=== PATIENT | female | born 1960 | race Two or more races ===

== ENCOUNTER 2021-12-31 08:43 | Outpatient (CLI) | payer MEDICARE, MEDICAID, SELFPAY ==
--- NOTE | 2021-12-31 09:15 | CRLHL7_ITS ---
For Patients: As a result of the Century Cures Act, medical imaging exams and procedure reports are released immediately into your electronic medical record. You may view this report before your referring provider. If you have questions, please contact your health care provider. INDICATION: CHRONIC HEPATITIS B COMPARISON: 08/06/2021 TECHNIQUE: Real time cash scale imaging and color Doppler analysis was performed of the right upper quadrant. FINDINGS: The patient`s liver is of normal size and has densely increased echogenicity. There is a normal appearance of the hepatic IVC and proximal abdominal aorta. There is no evidence of ascites. The gallbladder is surgically absent. The common bile duct is of normal size and measures 5 mm in diameter at the level of the nikolai hepatis. The pancreas appears normal. There is no evidence of a stone or hydronephrosis within the right kidney. The right kidney measures 8.4 cm in length. IMPRESSION: Similar appearance of the liver with diffusely echogenic and coarsened echotexture. No intrahepatic mass or ascites. Dictated by Leighton Gill MD @ 12/31/2021 9:31:41 AM (Electronically Signed)
[2021-12-31 10:22] LABS: Albumin* 4.9 g/dL (3.3-5.0)
[2021-12-31 10:25] LABS: Creatinine* 1.2 mg/dL (0.5-1.5); Estimated Glomerular Filt Rate 52 ml/min; Total Protein* 8.3 g/dL (6.0-8.3)
[2021-12-31 10:26] LABS: Alanine Aminotransferase* 97 U/L (4-35); Alkaline Phosphatase* 85 U/L (40-150); Aspartate Amino Transferase* 72 U/L (12-35); Bilirubin Direct* 0.1 mg/dL (0.0-0.5); Bilirubin Total* 0.4 mg/dL (0.1-1.5)
[2022-01-01 14:18] LABS: Alpha Fetoprotein Tumor Marker 3 ng/mL (0-9)
== END 2021-12-31 08:44 | disposition home or self-care (01) ==
LOC: US 08:44
PROVIDERS: PCP Family Medicine; Visit Provider Internal Medicine Gastroenterology
DX: B18.1 Chronic viral hepatitis B without delta-agent (principal)
CPT/HCPCS: 36415; 76705; 80076; 82105; 82565

== ENCOUNTER 2022-02-26 10:21 | Outpatient (CLI) | payer MEDICARE, MEDICAID, SELFPAY ==
--- OUTSIDE RECORDS SUMMARY | 2022-02-26 10:50 | XMS_ITS | Encounter Summary ---
:1960 Author Organization [facility] Address [address] [place] [address] Care Team Providers Name Role Phone Needs Pcp, Assignment Primary Care Provider Encounter Details Date Type Department Care Team Description 12/31/2019 Notes/Orders [facility], Audiology [address] [place] [address] Social History Tobacco Use Types Packs/Day Years Used Date Smoking Tobacco: Never Sex Assigned at Date Recorded Not on file documented as of this encounter Plan of Treatment Not on filedocumented as of this encounter Visit Diagnoses Not on filedocumented in this encounter Care Teams Log Driver Relationship Specialty Start Date End Date Needs Pcp, Assignment PCP - General 12/13/14 [place] [address] documented as of this encounter
--- OUTSIDE RECORDS SUMMARY | 2022-02-26 10:50 | XMS_ITS | Encounter Summary ---
:1960 Author Organization [facility] Address [address] [place] [address] Care Team Providers Name Role Phone Needs Pcp, Assignment Primary Care Provider Reason for Visit Reason Comments Device Check Encounter Details Date Type Department Care Team Description 02/07/2020 Office Visit [facility] Antonia Bryan, Bilateral sensorineural [address] [employer] JERE hearing loss ([place] [address] [place]) [address] [place], [place] [phone] [address] Social History Tobacco Use Types Packs/Day Years Used Date Smoking Tobacco: Never Sex Assigned at Date Recorded Not on file documented as of this encounter Progress Notes Antonia Bryan AU.D. - 02/07/2020 11:00 AM CST HEARING AID REVIEW Name: Kishore Raya : 1960 Primary MD: Assignment Needs PCP Date: 02/08/2020 Pick Out Hand: JERE Brown Reason for Appointment: Problems/concerns Comments: Kishore was accompanied today by her mother and theater projectionist. Kishore was recently fit withnew Resound Adalberto hearing aids and she is concerned that the batteries only last one week. She was used to getting 12-14 days. Otherwise, she is very pleased with the hearing aids. The molds are comfortable. Patient specific interventions: Explained how over time batteries have changed from silver oxide to mercury to zinc air. Also, technology improvements have resulted in a higher battery drain. Lastly, Resound aids tend to have higher battery drain than Phonak instruments as Kishore has previously worn. Explained that she may get extended battery life by removing the tab and letting the batteries sit fora couple of minutes before putting them in the aids. Explained that the amount of batteries providedby her insurance should be adequate for her needs. If not, she may find the lowest jackson for batteries online or at [employer] or [employer]. Follow-up plan/Next appointment: Recheck as needed. AYS CONTROL SPECIALIST documented in this encounter Plan of Treatment Not on filedocumented as of this encounter Visit Diagnoses Diagnosis Bilateral sensorineural hearing loss - P rimary Sensorineural hearing loss, bilateral documented in this encounter Care Teams Math Teacher Relationship Specialty Start Date End Date Needs Pcp, Assignment PCP - General 12/13/14 [place] [address] documented as of this encounter
--- OUTSIDE RECORDS SUMMARY | 2022-02-26 10:50 | XMS_ITS | Clinical Summary ---
:1960 [facility] Address [address] [address] Care Team Providers Name Role Phone Needs Pcp, Assignment Primary Care Provider Source Comments You are receiving this document as you are listed as the primary care provider,follow-up provider, or the patient has been referred to you for consultation.This is in compliance with the Medicare and Medicaid EHR Incentive Program,which states Providers who transition their patient to another setting of careor provider of care or refers their patient to another provider of care shouldprovide summarycare record for each transition of care or referral. [email or web address] Allergies Active Allergy Reactions Severity Noted Date Comments Review Food Intolerance 01/10/2003 PN: LW FI1: nka LW FI2: nka Medications Medication Sig Dispensed Refills Start Date End Date Status lisinopril (AKA Take 1 tablet by 30 0 09/03/2010 Active ZESTRIL) 30 MG mouth daily (every tablet 24 hours). LW Comment:Needs Appt/lab within 30 days LW Addl Instr:Indicated for: High Blood Pressure citalopram (AKA Take 1 tablet by 30 0 09/03/2010 Active CELEXA) 40 MG tablet mouth daily (every 24 hours). LW Comment:Needs Appt within 30 days LW Addl Instr:Indicated for: Depression simvastatin (AKA Take 1 tablet by 90 0 08/11/2009 Active ZOCOR) 20 MG tablet mouth every evening. LW Addl Instr:Indicated for: High Cholesterol calcium Take 1 tablet by 180 0 04/03/2007 Ac tive carbonate-vitamin D mouth 2 times daily. 600-400 MG-UNIT tablet METFORMIN HCL OR Take by mouth. 0 04/15/2014 Active Active Problems Problem Noted Date Hepatitis B carrier 04/11/2006 Esophageal reflux 04/11/2006 Overview: Gastroesophageal Reflux Disease Hyperlipidemia 02/04/2005 Complication of 02/04/2005 Overview: Hyperglycemia w Preg Mental retardation 02/04/2005 Overview: Mental Retardation NOS Hepatitis B virus infection 02/04/2005 Overview: Hepatitis B Major depressive disorder, single episode 02/04/2005 Overview: Depression Major NOS Essential hypertension 08/12/2003 Overview: Hypertension Hearing loss 08/21/2002 Overview: Hearing Loss NOS Encounters Date Type Specialty Care Team Description 01/14/2022 Notes/Orders Audiology Antonia Bryan AU.D. Bilat eral sensorineural hearing loss (P rimary Dx) from Last 3 Months Immunizations Name Administration Dates Next Due DTP 06/26/1995, 11/28/1994, 09/30/1994, 08/01/1994 Flu Vac Preserv Free (3+yrs) 01/29/2008 H1n1 Miv Sanofi 3+ Yr (Injected) 04/07/2009 HepA Adult (19+ yrs) 09/16/2002 HepB Adult (Engerix-B, 20+ yrs, 3 04/08/1995, 08/01/1994, dose series) Hib (ActHIB) 06/26/1995, 11/28/1994, 09/30/1994, 08/01/1994 MMR 06/26/1995 OPV, Trivalent (Orimune or tOPV) 11/28/1994, 09/30/1994, TDAP (BOOSTRIX) 07/08/2008 Td 03/16/1998 Typhoid (Typhim Vi, IM) 09/16/2002 Varicella 09/10/1996 YF (Yellow Fever) 09/16/2002 Family History Medical History Relation Name Comments Cataract Father Diabetes Father Cataract Mother Amblyopia/Strabismus Negative Family History Blindness Negative Family History Cancer Negative Family History Glaucoma Negative Family History Hypertension Negative Family History Macular Degeneration Negative Family History Retinal Detachment Negative Family History Relation Name Status Comments Father Mother Social History Tobacco Use Types Packs/Day Years Used Date Smoking Tobacco: Never Sex Assigned at Date Recorded Not on file Last Filed Vital Signs Vital Sign Reading Time Taken Comments Blood Pressure 124/82 08/11/2009 8:25 AM CDT Pulse 64 08/11/2009 8:25 AM CDT Temperature 37.2 ??C (99 ??F) 05/15/2009 2:43 PM C: 37.2 C LEAN SPECIALIST Respiratory Rate - - Oxygen Saturation - - Inhaled Oxygen Concentration - - Weight 60.8 kg (133 lb 15.9 oz) 08/11/2009 8:25 AM C: 6 0.8kg CDT Height 155.6 cm (5' 1.25) 08/11/2009 8:25 AM C: 155.6c m CDT Body Mass Index 25.11 08/11/2009 8:25 AM CDT Plan of Treatment Health Maintenance Due Date Last Done Comments Colon Cancer Screening Plan 1960 Due Medicare Annual Wellness 1960 Visit COVID-19 Vaccine (#1) 1960 HIV Screening (Preventive 1977 Services) Cervical Cancer Screening 04/04/2007 04/03/2007, 04/21/2002 , Due 12/01/2000, Additional history exists Mammogram 02/10/2011 02/10/2010, 02/03/2009, 01/29/2008, Additional history exists Cholesterol 08/11/2014 08/11/2009, 07/08/2008, 05/29/2007, Additional history exists Influenza (#1) 2021 12/28/2019, 12/24/2018, 12/26/2017, Additional history exists DTaP/Tdap/Td (9 - Tdap) 08/19/2029 08/20/2019, 04/23/2010, 07/08/2008, Additional history exists IPV (Polio) Aged Out 11/28/1994, 09/30/1994, No longe r eligible 08/01/1994 based on patient 's age to complete this topic HepB Completed 04/08/1995, 08/01/1994, 06/01/1994 Hib Aged Out 06/26/1995, 11/28/1994, No longe r eligible 09/30/1994, Additional based on patient's age history exists to complete this topic Hep C Screening (Preventive Completed 10/26/2009, 07/31/19 09, Services) 02/04/2005 HepA Completed 02/14/2011, 09/16/2002, 09/16/2002 Pneumococcal Aged Out 02/28/2014 No longer eligib le based on patient 's age to complete this topic Zoster/Shingles Completed 03/29/2020, 08/20/2019 MCV4 Aged Out No longer eligib le based on patient 's age to complete this topic Insurance Payer Benefit Plan / Subscriber ID Effective Dates Phone Addre ss Type Group MEDICARE MEDICARE [id number] 1997-Demar [place] [id number] 1999-Presmichael [address] Medicaid [facility] COMMUNICATIONS ENGINEER [place] [address] Care Teams Superintendent Electric Power Relationship Specialty Start Date End Date Needs Pcp, Assignment PCP - General 12/13/14 [place] [address]
--- OUTSIDE RECORDS SUMMARY | 2022-02-26 10:50 | XMS_ITS | Encounter Summary ---
:1960 Author Organization [facility] Address [address] [address] Care Team Providers Name Role Phone Needs Pcp, Assignment Primary Care Provider Encounter Details Date Type Department Care Team Description 01/14/2022 Notes/Orders [facility] Antonia Bryan, Bilateral sensorineural [address] [facility] AU.D. hearing loss ([place] [address] [place]) [address] [place], [place] [phone] [address] Social History Tobacco Use Types Packs/Day Years Used Date Smoking Tobacco: Never Sex Assigned at Date Recorded Not on file documented as of this encounter Plan of Treatment Not on filedocumented as of this encounter Visit Diagnoses Diagnosis Bilateral sensorineural hearing loss - P rimary Sensorineural hearing loss, bilateral documented in this encounter Care Teams Paper Baler Relationship Specialty Start Date End Date Needs Pcp, Assignment PCP - General 12/13/14 [place] [address] documented as of this encounter
--- OUTSIDE RECORDS SUMMARY | 2022-02-26 10:51 | XMS_ITS | Encounter Summary ---
:1960 Author Organization [facility] Address [address] [place] [address] Care Team Providers Name Role Phone Pauline Jimenez PA-C Primary Care Provider Encounter Details Date Type Department Care Team Description 04/07/2009 Office Visit [facility] rochelle Pauline Jimenez PA-C [address] [facility] [address] [place] [address] [place] [address] [phone] (Wo rk) Social History Tobacco Use Types Packs/Day Years Used Date Smoking Tobacco: Never Assessed Sex Assigned at Date Recorded Not on file documented as of this encounter Last Filed Vital Signs Vital Sign Reading Time Taken Comments Blood Pressure 128/82 04/07/2009 1:15 PM MANAGEMENT INTERN C: Omron Pulse 66 04/07/2009 1:15 PM MANAGEMENT INTERN Temperature - - Respiratory Rate - - Oxygen Saturation - - Inhaled Oxygen Concentration - - Weight 62.6 kg (137 lb 15.8 oz) 04/07/2009 1:12 PM MANAGEMENT INTERN C: 62.6kg Height - - Body Mass Index 25.86 07/08/2008 9:32 AM CDT documented in this encounter Progress Notes Pauline Jimenez PA-C - 04/07/2009 12:01 AM CST Progress Notes signed by Pauline West PA-C at 04/07/09 0628 Author: Pauline West PA-C Service: (none) Author Type: Physician Salesperson Floor Coverings Filed: 07/07/10 1938 Note Time: 04/07/09 0001 Status: Signed General Repair Mechanic: Pauline West PA-C (Resource) Hypertension Visit IMPRESSION: Hypertension, uncontrolled. SUBJECTIVE: Chief Complaint: Patient presents for evaluation of Hypertension. This is a follow visit for this problem. Hypertension has been present for an unknown length of time. Treatment attempted: Diet modification. Exercise. PAST MEDICAL HISTORY: Patient's active medical problems were reviewed today and updated on the Health Profile screen of [facility]. Adverse Drug Reactions: Pt's Adverse Drug Reactions were reviewed, and updated today on the Health Profile of [facility]. Medications: Reviewed and updated today on Health Profile in [facility]. Tobacco: None. Review of Systems: No Chest Pain at rest No Chest Pain with exertion No Dyspnea No Edema No Fatigue No Headache No Light-headedness OBJECTIVE: Vital Signs: Vital Signs taken today were reviewed on the flowsheet in [facility]. General: Patient in NAD. HEENT: No neck mass/thyromegaly. CV: RRR without murmurs, rubs, or gallops. No carotid bruits. 1+ pedal pulses on left. 1+ pedal pulses on right. Resp: clear to auscultation without crackles, wheezes or distress. Lower Extremities: No edema on left. No edema on right. Psychiatric: A&O, normal affect and insight, does not appear depressed or anxious. ASSESMENT: Hypertension, uncontrolled. PLAN: Goal BP <130/80. Risks, benefits, and alternatives of therapy discussed. Discussed hypertension and implications. Discussed electrolyte disturbance and arrhythmia. Diet modification. Exercise; start slow and increase exertion level gradually. Discussed weight management. She was previously on triple therapy for her blood pressure. In February her blood pressure and pulse rate were too low. Off of her medications she is running normal BP's about half of the time. I would like her to remain off of the triamterene/HCTZ and the atenolol. She will resume lisinopril at 10mg daily. She verbalized understading. I will have her follow up in about one month for recheck. Medications: Refills given. *SH~PC~HTN ~Shorthand Note completed on: 04/07/2009 2:15 PM GEMENT INTERN documented in this encounter Plan of Treatment Not on filedocumented as of this encounter Visit Diagnoses Not on filedocumented in this encounter Care Teams Home Hospice Rn Relationship Specialty Start Date End Date Pauline Jimenez PA-C PCP - General 06/17/10 12/12/[address] [place] [address] documented as of this encounter
--- OUTSIDE RECORDS SUMMARY | 2022-02-26 10:51 | XMS_ITS | Encounter Summary ---
:1960 Author Organization [facility] Address [address], [place] [address] Care Team Providers Name Role Phone Needs Pcp, Assignment Primary Care Provider Reason for Visit Reason Comments Device Check Encounter Details Date Type Department Care Team Description 05/31/2015 Office Visit [facility] Antonia Bryan, Bilateral sensorineural [address] [facility] [place] ([place] [address] [facility] Dx) [phone] [place] [address] Social History Tobacco Use Types Packs/Day Years Used Date Smoking Tobacco: Never Assessed Sex Assigned at Date Recorded Not on file documented as of this encounter Progress Notes Antonia Bryan AU.D. - 05/31/2015 5:23 PM CDT HEARING AID REVIEW Name: Kishore Raya : 1960 Primary MD: Assignment Needs PCP Date: 05/31/2015 Fire Sprinkler Fitter: TERRELL Brown Reason for Appointment: Problems/concerns Comments: Kishore has been having difficulty with hear hearing aids for several months. The tubing is easily coming out of the molds. She has lost them many times in her home because the aid has fallen off. She has difficulty getting to appointments as she has to wait until her sister is available to drive her. Patient specific interventions: The tube lock has come off of both ear mold tubes. Replaced tubing, microphone screens, earhooks. Power Transformer Repairer measurements indicate proper working condition. Kishore noted improved hearing in office. Follow-up plan/Next appointment: Annual hearing aid check. Explained that if she feels her hearing has changed we can test it, but an order is needed from her primary care provider. TABLE HANDLER documented in this encounter Plan of Treatment Not on filedocumented as of this encounter Visit Diagnoses Diagnosis Bilateral sensorineural hearing loss - P rimary Sensorineural hearing loss, bilateral documented in this encounter Care Teams Solution Analyst Relationship Specialty Start Date End Date Needs Pcp, Assignment PCP - General 12/13/14 [place] [address] documented as of this encounter
--- OUTSIDE RECORDS SUMMARY | 2022-02-26 10:51 | XMS_ITS | Encounter Summary ---
:1960 Author Organization [facility] Address [address] [address] Care Team Providers Name Role Phone Pauline Jimenez PA-C Primary Care Provider Encounter Details Date Type Department Care Team Description 05/21/2010 PN Conversion Only [facility] [address] [place] [address] [place] [address] [phone] (Wo rk) Social History Tobacco Use Types Packs/Day Years Used Date Smoking Tobacco: Never Assessed Sex Assigned at Date Recorded Not on file documented as of this encounter Plan of Treatment Not on filedocumented as of this encounter Visit Diagnoses Not on filedocumented in this encounter Care Teams Soft Iron Inspector Relationship Specialty Start Date End Date Pauline Jimenez PA-C PCP - General 06/17/10 12/12/14 [address] [place] [address] documented as of this encounter
--- OUTSIDE RECORDS SUMMARY | 2022-02-26 10:51 | XMS_ITS | Encounter Summary ---
:1960 Author Organization [facility] Address [address] [place] [address] Care Team Providers Name Role Phone Barbara Pauline Malone PA-C Primary Care Provider Encounter Details Date Type Department Care Team Description 02/20/2009 PN Conversion Only [facility] Samir [place], [address] [place] [address] [place] [facility] [phone] [place] [address] (Wo rk) Social History Tobacco Use Types Packs/Day Years Used Date Smoking Tobacco: Never Assessed Sex Assigned at Date Recorded Not on file documented as of this encounter Last Filed Vital Signs Vital Sign Reading Time Taken Comments Blood Pressure 146/80 02/20/2009 2:26 PM DOCTOR OF PODIATRY Pulse 54 02/20/2009 2:26 PM DOCTOR OF PODIATRY Temperature - - Respiratory Rate - - Oxygen Saturation - - Inhaled Oxygen Concentration - - Weight 61.8 kg (136 lb 2.9 oz) 02/20/2009 2:17 PM DOCTOR OF PODIATRY C : 61.8kg Height - - Body Mass Index 25.52 07/08/2008 9:32 AM CDT documented in this encounter Plan of Treatment Not on filedocumented as of this encounter Procedures Procedure Name Priority Date/Time Associated Diagnosis Comme nts ECG 12 [facility] Routine 02/20/2009 3:06 PM Res ults for this DOCTOR OF PODIATRY procedure are i n the results section. documented in this encounter Results ECG 12 lead clinic (02/20/2009 3:06 PM DOCTOR OF PODIATRY) Specimen (Source) Anatomical Collection Method Collection Time Re ceived Time Location / / Volume Laterality 02/20/2009 3:06 PM DOCTOR OF PODIATRY Narrative HP CONVERSION - 02/20/2009 3:06 PM DOCTOR OF PODIATRY Sinus bradycardia Nonspecific ST and T wave abnormality Abnormal ECG When compared with ECG of 11-JAN-2003 1 4:01, Vent. rate has decreased BY ??26 BPM Imr Conversion PN ECG ORDERABLES Performing Organization Address City/State/ZIP Code Phon e Number HP CONVERSION documented in this encounter Visit Diagnoses Not on filedocumented in this encounter Care Teams Travel Services Professional Relationship Specialty Start Date End Date Pauline Jimenez PA-C PCP - General 06/17/10 12/12/[address] [place] [address] documented as of this encounter
--- OUTSIDE RECORDS SUMMARY | 2022-02-26 10:51 | XMS_ITS | Encounter Summary ---
:1960 Author Organization [facility] Address [address] [place] [address] Care Team Providers Name Role Phone Pauline Jimenez PA-C Primary Care Provider Encounter Details Date Type Department Care Team Description 05/07/2010 Office Visit [facility] Brent Bryan AU.D. [place] [address] [facility] [address] [place] [address] [place] [address] [phone] Social History Tobacco Use Types Packs/Day Years Used Date Smoking Tobacco: Never Assessed Sex Assigned at Date Recorded Not on file documented as of this encounter Plan of Treatment Not on filedocumented as of this encounter Visit Diagnoses Not on filedocumented in this encounter Care Teams Community Relations Officer Relationship Specialty Start Date End Date Pauline Jimenez PA-C PCP - General 06/17/10 12/12/14 [address] [place] [address] documented as of this encounter
--- OUTSIDE RECORDS SUMMARY | 2022-02-26 10:51 | XMS_ITS | Encounter Summary ---
:1960 Author Organization [facility] Address [address] [place] [address] Care Team Providers Name Role Phone Pauline Jimenez PA-C Primary Care Provider Encounter Details Date Type Department Care Team Description 05/29/2009 Nursing Visit [facility] Eamon Moreno gil Jones MD [address] [address] [place] [address] [phone] Social History Tobacco Use Types Packs/Day Years Used Date Smoking Tobacco: Never Assessed Sex Assigned at Date Recorded Not on file documented as of this encounter Last Filed Vital Signs Vital Sign Reading Time Taken Comments Blood Pressure 118/82 05/29/2009 9:42 AM CDT C: Omron Pulse 70 05/29/2009 9:42 AM CDT Temperature - - Respiratory Rate - - Oxygen Saturation - - Inhaled Oxygen Concentration - - Weight - - Height - - Body Mass Index - - documented in this encounter Plan of Treatment Not on filedocumented as of this encounter Visit Diagnoses Not on filedocumented in this encounter Care Teams Ems Director Relationship Specialty Start Date End Date Pauline Jimenez PA-C PCP - General 06/17/10 12/12/14 [address] [place] [address] documented as of this encounter
--- OUTSIDE RECORDS SUMMARY | 2022-02-26 10:51 | XMS_ITS | Encounter Summary ---
:1960 Author Organization [facility] Address [address], [place] [address] Care Team Providers Name Role Phone Pauline Jimenez PA-C Primary Care Provider Encounter Details Date Type Department Care Team Description 04/13/2010 PN Conversion Only [facility].D[facility] [address] [place] [address] [place] [address] [phone] (Wo rk) Social History Tobacco Use Types Packs/Day Years Used Date Smoking Tobacco: Never Assessed Sex Assigned at Date Recorded Not on file documented as of this encounter Plan of Treatment Not on filedocumented as of this encounter Visit Diagnoses Not on filedocumented in this encounter Care Teams Stamping Mill Tender Relationship Specialty Start Date End Date Pauline Jimenez PA-C PCP - General 06/17/10 12/12/[address] [place] [address] documented as of this encounter
--- OUTSIDE RECORDS SUMMARY | 2022-02-26 10:51 | XMS_ITS | Encounter Summary ---
:1960 Author Organization [facility] Address [address] [place] [address] Care Team Providers Name Role Phone Needs Pcp, Assignment Primary Care Provider Reason for Visit Reason Comments HEARING LOSS Encounter Details Date Type Department Care Team Description 11/04/2019 Office Visit [facility] Antonia Bryan, Bilateral sensorineural [address] [address] [place] [address] [address] [id number] [place], [place] [phone] [address] Social History Tobacco Use Types Packs/Day Years Used Date Smoking Tobacco: Never Sex Assigned at Date Recorded Not on file documented as of this encounter Progress Notes Antonia Bryan AU.D. - 11/04/2019 4:00 PM CDT HEARING AID REVIEW Name: Kishore Raya : 1960 Primary MD: Assignment Needs PCP Date: 11/22/2019 Floor Layer Helper: JERE Brown Reason for Appointment: Problems/concerns Comments: Kishore was accompanied today by her mother and mail distribution scheme examiner. Kishore reports that her lefthearing aid is not working. Patient specific interventions: Both aids were cleaned and tested. The left aid is and the right aid appears to be working well. The aids are Phonak Arlene III and were fit in 2010. Given the age of the instruments and that one is not working, it was decided to pursue new aids at this time. Kishore does not use a mobile phone. She would like a rechargeable aid if possible. Considered both Resound Adalberto and Phonak Arlene and neither is rechargeable. Discussed color and features which are an improvement compared to her current aids. Kishore's current molds are in good condition and new molds will not be ordered at this time. Follow-up plan/Next appointment: Return in November after the new [facility] contract is available. Test hearing at the time of the fitting. documented in this encounter Plan of Treatment Not on filedocumented as of this encounter Visit Diagnoses Diagnosis Bilateral sensorineural hearing loss - P rimary Sensorineural hearing loss, bilateral documented in this encounter Care Teams Pbx Inspector Relationship Specialty Start Date End Date Needs Pcp, Assignment PCP - General 12/13/14 [place] [address] documented as of this encounter
--- OUTSIDE RECORDS SUMMARY | 2022-02-26 10:51 | XMS_ITS | Encounter Summary ---
:1960 Author Organization [facility] Address [address], [place] [address] Care Team Providers Name Role Phone Barbara Pauline Malone PA-C Primary Care Provider Encounter Details Date Type Department Care Team Description 02/10/2010 PN Conversion Only [facility] [address] [place] [address] Social History Tobacco Use Types Packs/Day Years Used Date Smoking Tobacco: Never Assessed Sex Assigned at Date Recorded Not on file documented as of this encounter Plan of Treatment Not on filedocumented as of this encounter Procedures Procedure Name Priority Date/Time Associated Diagnosis Comme nts MM MAMMOGRAM Routine 02/10/2010 12:55 PM Results for this SCREENING BILAT W STORES DESPATCH HAND procedure are in CAD the results section. documented in this encounter Results MM Mammogram Screening Bilat W CAD (02/10/2010 12:55 PM STORES DESPATCH HAND) Anatomical Region Laterality Modality Breast Bilateral Mammography Specimen (Source) Anatomical Location Collection Method / Collectio n Time Received Time / Laterality Volume Narrative 02/12/2010 10:22 AM STORES DESPATCH HAND Comparison is made to films from 01/29/2008 (bilateral). There is no significant interval change. Bilateral Breast Findings: There are scattered fibroglandular densi ties (11% - 50% fibroglandular). No significant masses, calcifications or other abnormalities are seen. IMPRESSION: BILATERAL BREASTS Negative, no evidence of malignancy. Nor mal interval follow-up is recommended in 12 months. OVERALL ASSESSMENT - CATEGORY 1 - NEGATI VE END OF IMPRESSION SJW Dictating CRISTOBAL BELL MD Procedure Note Cristobal Pinedo MD - 11/07/2015Format ting of this note might be different from the original. Comparison is made to films from 008 (bilateral). There is no significant interval change. Bilateral Breast Findings: There are scattered fibroglandular densi ties (11% - 50% fibroglandular). No significant masses, calcifications or other abnormalities are seen. IMPRESSION: BILATERAL BREASTS Negative, no evidence of malignancy. Nor mal interval follow-up is recommended in 12 months. OVERALL ASSESSMENT - CATEGORY 1 - NEGATI VE END OF IMPRESSION SJW Dictating CRISTOBAL BELL MD Pauline Jimenez PA-C RAD SONYA documented in this encounter Visit Diagnoses Not on filedocumented in this encounter Care Teams Manager Distribution Center Relationship Specialty Start Date End Date Pauline Jimenez PA-C PCP - General 06/17/10 12/12/[address] [place] [address] documented as of this encounter
--- OUTSIDE RECORDS SUMMARY | 2022-02-26 10:51 | XMS_ITS | Encounter Summary ---
:1960 Author Organization [facility] Address [address] [place] [address] Care Team Providers Name Role Phone Needs Pcp, Assignment Primary Care Provider Encounter Details Date Type Department Care Team Description 11/22/2019 Notes/Orders [facility] Antonia Bryan AUDonny [address] [address] [place] [phone] [place] [address] [phone] (Wo rk) Social History Tobacco Use Types Packs/Day Years Used Date Smoking Tobacco: Never Sex Assigned at Date Recorded Not on file documented as of this encounter Plan of Treatment Not on filedocumented as of this encounter Visit Diagnoses Not on filedocumented in this encounter Care Teams Loan Closer Relationship Specialty Start Date End Date Needs Pcp, Assignment PCP - General 12/13/14 [place] [address] documented as of this encounter
--- OUTSIDE RECORDS SUMMARY | 2022-02-26 10:51 | XMS_ITS | Encounter Summary ---
:1960 Author Organization [facility] Address [address], [place] [address] Care Team Providers Name Role Phone Pauline Jimenez PA-C Primary Care Provider Encounter Details Date Type Department Care Team Description 08/11/2009 PN Conversion Only [facility] CONVERSION Ashley Jimenez PA-C [address] [place] [address] (Wo rk) Social History Tobacco Use Types Packs/Day Years Used Date Smoking Tobacco: Never Assessed Sex Assigned at Date Recorded Not on file documented as of this encounter Plan of Treatment Not on filedocumented as of this encounter Procedures Procedure Name Priority Date/Time Associated Comments Diagnosis GLUCOSE Routine 08/11/2009 9:08 AM Results f or this CDT procedure are i n the results section. THYROID STIMULATING Routine 08/11/2009 9:08 AM Re sults for this HORMONE CDT procedure are i n the results section. LIPID PANEL AND Routine 08/11/2009 9:08 AM Result s for this DIRECT LDL(IF NEEDED) CDT proced ure are in the results section. CREATININE / GFR Routine 08/11/2009 9:08 AM Resul ts for this CDT procedure are i n the results section. COMPLETE BLOOD Routine 08/11/2009 9:08 AM Results for this COUNT-W/DIFF CDT procedure are i n the results section. ELECTROLYTE PANEL Routine 08/11/2009 9:08 AM Resu lts for this CDT procedure are i n the results section. HGB A1C Routine 08/11/2009 9:08 AM Results f or this CDT procedure are i n the results section. ALT (SGPT) Routine 08/11/2009 9:08 AM Results f or this CDT procedure are i n the results section. documented in this encounter Results Hemogram/Plts/Diff (08/11/2009 9:08 AM CDT) athologist Signature White Blood Cell 6.6 3.8 - 11.0 HP CONVERSIO N Count k/cmm Red Blood Cell 4.56 3.70 - HP CONVERSION Count 5.20 m/cmm Hemoglobin 13.9 11.8 - HP CONVERSION 15.5 g/dL Hematocrit 40.0 35.0 - HP CONVERSION 46.0 % Mean Corpuscular 87.7 80.0 - HP CONVERSION Volume 100.0 fL RDW 12.7 11.0 - HP CONVERSION 15.0 % Platelet Count 248 140 - 450 HP CONVERSION k/cmm Absolute 2.7 2.0 - 6.8 HP CONVERSION Neutrophils k/cmm Absolute 3.1 1.0 - 4.0 HP CONVERSION Lymphocytes k/cmm Absolute 0.5 0.2 - 1.0 HP CONVERSION Monocytes k/cmm Absolute 0.3 0.0 - 0.5 HP CONVERSION Eosinophils k/cmm Absolute 0.0 0.0 - 0.2 HP CONVERSION Basophils k/cmm Specimen (Source) Anatomical Collection Method Collection Time Re ceived Time Location / / Volume Laterality 08/11/2009 9:08 AM CDT Pauline Malone Barbara العراقي-C LAB_1 Performing Organization Address City/State/ZIP Code Phon e Number HP CONVERSION THYROID STIMULATING HORMONE (08/11/2009 9:08 AM CDT) athologist Signature Thyroid 2.20 0.20 - HP CONVERSION Stimulating 4.50 mIU/L Hormone Specimen (Source) Anatomical Collection Method Collection Time Re ceived Time Location / / Volume Laterality 08/11/2009 9:08 AM CDT Pauline Jimenez MALCOM-C LAB_1 Performing Organization Address City/State/ZIP Code Phon e Number HP CONVERSION (ABNORMAL) Hgb A1c (08/11/2009 9:08 AM CDT) athologist Signature HGB A1C 6.3 (H) 0.0 - 6.0 % HP CONVERSION Specimen (Source) Anatomical Collection Method Collection Time Re ceived Time Location / / Volume Laterality 08/11/2009 9:08 AM CDT Pauline ANDREC LAB_1 Performing Organization Address [facility] Code Phon e Number HP CONVERSION (ABNORMAL) Lipid Panel and Direct LDL(If Needed) (08/11/2009 9:08 AM CDT) Patholo gist Method Time Signature Cholesterol 160 0 - 200 HP CONVERSION mg/dL Triglycerides 196 (H) 0 - 149 HP CONVERSION mg/dL HDL Cholesterol 42 >39 mg/dL HP CONVERSION Cholesterol/HDL 3.8 No normal HP CONVERSION Ratio Screen range LDL Calculated 79 19 - 130 HP CONVERSION mg/dL Length Of Fast 12 No normal HP CONVERSION range Specimen (Source) Anatomical Collection Method Collection Time Re ceived Time Location / / Volume Laterality 08/11/2009 9:08 AM CDT Pauline العراقي-C LAB_1 Performing Organization Address [facility] Phon e Number HP CONVERSION Electrolyte Panel (08/11/2009 9:08 AM CDT) P athologist Signature Sodium 140 137 - 147 HP CONVERSION mEq/L Potassium 4.3 3.5 - 5.2 HP CONVERSION mEq/L Chloride 103 98 - 110 HP CONVERSION mEq/L Bicarbonate 31 23 - 33 HP CONVERSION mmol/L Specimen (Source) Anatomical Collection Method Collection Time Re ceived Time Location / / Volume Laterality 08/11/2009 9:08 AM CDT Pauline ANDREC LAB_1 Performing Organization Address [facility] Phon e Number HP CONVERSION (ABNORMAL) GLUCOSE (08/11/2009 9:08 AM CDT) P athologist Signature Lab Glucose 105 (H) 60 - 100 HP CONVERSION mg/dL Specimen (Source) Anatomical Collection Method Collection Time Re ceived Time Location / / Volume Laterality 08/11/2009 9:08 AM CDT Pauline العراقي-C LAB_1 Performing Organization Address [facility] Phon e Number HP CONVERSION Creatinine / GFR (08/11/2009 9:08 AM CDT) P athologist Signature Creatinine 0.8 0.4 - 1.3 HP CONVERSION Serum mg/dL Est GFR >60 >60 HP CONVERSION Am mL/min/1.7 Est GFR Non-Afr >60 >60 HP CONVERSION Am mL/min/1.7 Comment: Normal>60, moderate decrease 30 - 59, se liz decrease 15 - 29, renal failure <15 mL/min/1.73 m2 NOTE: ??Choose the eGFR result above buffy ropriate for the race of the patient. Specimen (Source) Anatomical Collection Method Collection Time Re ceived Time Location / / Volume Laterality 08/11/2009 9:08 AM CDT Pauline Jimenez PA-C LAB_1 Performing Organization Address City/[facility]/ZIP Code Phon e Number HP CONVERSION (ABNORMAL) ALT (SGPT) (08/11/2009 9:08 AM CDT) [facility] gist Method Time Signature Alanine 105 (H) 4 - 55 HP CONVERSION Aminotransferase U/L Specimen (Source) Anatomical Collection Method Collection Time Re ceived Time Location / / Volume Laterality 08/11/2009 9:08 AM CDT Pauline Jimenez PA-C LAB_1 Performing Organization Address City/[facility]/ZIP Code Phon e Number HP CONVERSION documented in this encounter Visit Diagnoses Not on filedocumented in this encounter Care Teams Firer Portable Boiler Relationship Specialty Start Date End Date Pauline Jimenez PA-C PCP - General 06/17/10 12/12/[address] [place] [address] documented as of this encounter
--- OUTSIDE RECORDS SUMMARY | 2022-02-26 10:51 | XMS_ITS | Encounter Summary ---
:1960 Author Organization [facility] Address [address] [address] Care Team Providers Name Role Phone Qasim Jimenez PA-C Primary Care Provider Encounter Details Date Type Department Care Team Description 05/15/2009 PN Conversion Only RELIGION CONVERSION Ashley Jimenez PA-C [address] [place] [address] (Wo rk) Social History Tobacco Use Types Packs/Day Years Used Date Smoking Tobacco: Never Assessed Sex Assigned at Date Recorded Not on file documented as of this encounter Plan of Treatment Not on filedocumented as of this encounter Procedures Procedure Name Priority Date/Time Associated Diagnosis Comme nts BETA STREP FOLLOWUP Routine 05/15/2009 4:40 PM Re sults for this SECOND OPERATOR procedure are i n the results section. STREP GROUP A Routine 05/15/2009 4:39 PM Results for this ANTIGEN TEST SECOND OPERATOR procedure are i n the results section. documented in this encounter Results Beta Strep Followup (05/15/2009 4:40 PM SECOND OPERATOR) P athologist Signature Strep Screen SEE TEXT HP CONVERSION Comment: CSSNC Culture Strep, Follow up from Rapid Test ? ORDERED BY: QASIM MAY SOURCE: Throat ? COLLECTED: ??05/15/09 16:40 ? PLATED: ? 05/15/09 16:40 Culture Strep, Follow up from Rapid Test ?? FINAL ? 05/16/09 08:36 No beta hemolytic Streptococcus isolate d Specimen (Source) Anatomical Collection Method Collection Time Re ceived Time Location / / Volume Laterality 05/15/2009 4:40 PM SECOND OPERATOR Qasim Jimenez PA-C LAB_1 Performing Organization Address City/State/ZIP Code Phon e Number HP CONVERSION Strep Group A Antigen Test (05/15/2009 4:39 PM SECOND OPERATOR) Analysis Performed At [facility] Time Signature Strep Group A SEE TEXT HP CONVERSION Antigen Test Comment: RSS Rapid Strep Screen ? ORDERED BY: QASIM MAY SOURCE: Throat ? COLLECTED: ??05/15/09 16:39 ? PLATED: ? 05/15/09 16:40 Rapid Strep Screen ? FINAL ? 05/15/09 16:58 ??Test performed by:kevin ? Negative for Streptococcus group A Specimen (Source) Anatomical Collection Method Collection Time Re ceived Time Location / / Volume Laterality 05/15/2009 4:39 PM SECOND OPERATOR Qasim Jimenez PA-C LAB_1 Performing Organization Address City/State/ZIP Code Phon e Number HP CONVERSION documented in this encounter Visit Diagnoses Not on filedocumented in this encounter Care Teams Perinatal Technician Relationship Specialty Start Date End Date Qasim Jimenez PA-C PCP - General 06/17/10 12/12/14 [address] [place] [id number] documented as of this encounter
--- OUTSIDE RECORDS SUMMARY | 2022-02-26 10:51 | XMS_ITS | Encounter Summary ---
:1960 Author Organization [facility] Address [address] [place] [address] Care Team Providers Name Role Phone Pauline Jimenez PA-C Primary Care Provider Encounter Details Date Type Department Care Team Description 05/15/2009 Office Visit [facility] rochelle Pauline Jimenez PA-C [address] [facility] [address] [place] [address] [place] [address] [phone] (Wo rk) Social History Tobacco Use Types Packs/Day Years Used Date Smoking Tobacco: Never Assessed Sex Assigned at Date Recorded Not on file documented as of this encounter Last Filed Vital Signs Vital Sign Reading Time Taken Comments Blood Pressure 116/72 05/15/2009 2:43 PM TOBACCO CHECKOUT CLERK Pulse 80 05/15/2009 2:43 PM TOBACCO CHECKOUT CLERK Temperature 37.2 ??C (99 ??F) 05/15/2009 2:43 PM TOBACCO CHECKOUT CLERK C: 37.2 C Respiratory Rate - - Oxygen Saturation - - Inhaled Oxygen Concentration - - Weight 61.3 kg (135 lb 3 oz) 05/15/2009 2:43 PM TOBACCO CHECKOUT CLERK C: 61.3kg Height - - Body Mass Index 25.34 07/08/2008 9:32 AM CDT documented in this encounter Progress Notes Pauline Jimenez PA-C - 05/15/2009 12:01 AM CST Progress Notes signed by Pauline West PA-C at 08/21/09 [id number] Author: Pauline West PA-C Service: (none) Author Type: Physician Senior Interaction Designer Filed: 07/07/102031 Note Time: 05/15/092031 Status: Signed Field Observer: Pauline West PA-C (Resource) Hypertension Visit IMPRESSION: Hypertension, uncontrolled. SUBJECTIVE: Chief Complaint: Patient presents for evaluation of Hypertension. This is a follow visit for this problem. Treatment attempted: Diet modification. Exercise. PAST MEDICAL HISTORY: Patient's active medical problems were reviewed today and updated on the Health Profile screen of the Electronic Medical Record. Adverse Drug Reactions: Pt's Adverse Drug Reactions were reviewed, and updated today on the Health Profile of the Electronic Medical Record. Medications: Reviewed and updated today on Health Profile in the Electronic Medical Record. Tobacco: None. Review of Systems: No Chest Pain at rest No Chest Pain with exertion No Headache No Light-headedness OBJECTIVE: Vital Signs: Vital Signs taken today were reviewed on the flowsheet in the Electronic Medical Record. General: Patient in NAD. HEENT: No neck mass/thyromegaly. CV: RRR without murmurs, rubs, or gallops. No carotid bruits. Resp: clear to auscultation without crackles, wheezes or distress. Lower Extremities: No edema on left. No edema on right. ASSESMENT: Hypertension, uncontrolled. PLAN: Goal BP <130/80. Exercise; start slow and increase exertion level gradually. Discussed weight management. Medications: Increased Lisinopril (Prinivil, Zestril) Follow-up visit: Follow-up visit with me in 1 month. *SH~PC~HTN ~Shorthand Note completed on: 08/21/2009 4:09 PM documented in this encounter Plan of Treatment Not on filedocumented as of this encounter Visit Diagnoses Not on filedocumented in this encounter Care Teams Wholesale Loan Processor Relationship Specialty Start Date End Date Pauline Jimenez PA-C PCP - General 06/17/10 12/12/[address] [place] [address] documented as of this encounter
--- OUTSIDE RECORDS SUMMARY | 2022-02-26 10:51 | XMS_ITS | Encounter Summary ---
:1960 Author Organization [facility] Address [address], [place] [address] Care Team Providers Name Role Phone Pauline Jimenez PA-C Primary Care Provider Encounter Details Date Type Department Care Team Description 10/26/2009 PN Conversion Only HOAHAOISM CONVERSION Ashley Jimenez PA-C [address] [place] [address] (Wo rk) Social History Tobacco Use Types Packs/Day Years Used Date Smoking Tobacco: Never Assessed Sex Assigned at Date Recorded Not on file documented as of this encounter Plan of Treatment Not on filedocumented as of this encounter Procedures Procedure Name Priority Date/Time Associated Diagnosis Comme nts HEP B SURFACE Routine 10/26/2009 4:00 PM Results for this ANTIGEN CONFIRM CDT procedure ar e in the results section. HEPATITIS A IGM Routine 10/26/2009 4:00 PM Result s for this ANTIBODY CDT procedure are i n the results section. HEPATITIS B SURFACE Routine 10/26/2009 4:00 PM Re sults for this ANTIBODY CDT procedure are i n the results section. HEP B SURFACE Routine 10/26/2009 4:00 PM Results for this ANTIGEN, NO REFLEX CDT procedure are in the results section. HEPATITIS C Routine 10/26/2009 4:00 PM Results f or this ANTIBODY, WITH CDT procedure are in REFLEX the results section. HEPATITIS B CORE,AB Routine 10/26/2009 4:00 PM Re sults for this CDT procedure are i n the results section. ALT (SGPT) Routine 10/26/2009 4:00 PM Results f or this CDT procedure are i n the results section. AST Routine 10/26/2009 4:00 PM Results f or this CDT procedure are i n the results section. BILIRUBIN, TOTAL Routine 10/26/2009 4:00 PM Resul ts for this CDT procedure are i n the results section. ALKALINE Routine 10/26/2009 4:00 PM Results f or this PHOSPHATASE, TOTAL CDT procedure are in the results section. documented in this encounter Results (ABNORMAL) HEP B SURFACE ANTIGEN CONFIRM (10/26/2009 4:00 PM CDT) [facility] Time Signature Hepatitis B Positive Non HP CONVERSION Surface Antigen (A) Confirmed Confirmation Comment: Hepatitis B surface antigen (HBsAg) did neutralize using anti-HBs. This specimen is therefore POS ITIVE for HBsAg. False positives can occur. If the result is not supported by clinical evidence, repeat testing of a new sample usually helps clarify the diagnosis. TEST INFORMATION: Hepatitis B Surface Ag Confirmation [facility] intends use of this assay for clini makayla diagnosis. This assay should not be used for blood donor screening, associated re-ent ry protocols, or for screening Human Cells, Tissues and Cellular and Tissue-Based Products ( HCT/P). Performed at [facility] [address] [place] [address] 8410 8 Specimen (Source) Anatomical Collection Method Collection Time Re ceived Time Location / / Volume Laterality 10/26/2009 4:00 PM CDT Pauline العراقي-Cyndi LAB_1 Performing Organization Address City/[facility] Code Phon e Number HP CONVERSION Hepatitis C Antibody, with Reflex (10/26/2009 4:00 PM CDT) [facility] Signature Hepatitis C Non-React No normal HP CONVERSION Antibody range Specimen (Source) Anatomical Collection Method Collection Time Re ceived Time Location / / Volume Laterality 10/26/2009 4:00 PM CDT Pauline العراقي-Cyndi LAB_1 Performing Organization Address City/State/ZIP Code Phon e Number HP CONVERSION (ABNORMAL) Hep B Surface Antigen, No Reflex (10/26/2009 4:00 PM CDT) [facility] Signature Hep B Surf Ag Sent Ref No normal HP CONVERSION (A) range Specimen (Source) Anatomical Collection Method Collection Time Re ceived Time Location / / Volume Laterality 10/26/2009 4:00 PM CDT Pauline العراقي-C LAB_1 Performing Organization Address City/[facility] Code Phon e Number HP CONVERSION Hepatitis B Surface Antibody (10/26/2009 4:00 PM CDT) [facility] Method Time Signature Hep B Surf Ab Non-React No normal HP CONVERSION range Specimen (Source) Anatomical Collection Method Collection Time Re ceived Time Location / / Volume Laterality 10/26/2009 4:00 PM CDT Pauline العراقي-C LAB_1 Performing Organization Address City/[facility] Code Phon e Number HP CONVERSION (ABNORMAL) Hepatitis B Core Antibody (10/26/2009 4:00 PM CDT) [facility] Method Time Signature Hepatitis B Reactive (A) No normal HP CONVERSION Core Total range Antibody Specimen (Source) Anatomical Collection Method Collection Time Re ceived Time Location / / Volume Laterality 10/26/2009 4:00 PM CDT Pauline العراقي-C LAB_1 Performing Organization Address [facility] Phon e Number HP CONVERSION HEPATITIS A IGM ANTIBODY (10/26/2009 4:00 PM CDT) [facility] Time Signature Hepatitis A Negative Negative HP CONVERSION IgM Antibody Comment: Performed at [facility] [address] [address] Specimen (Source) Anatomical Collection Method Collection Time Re ceived Time Location / / Volume Laterality 10/26/2009 4:00 PM CDT Pauline ANDREC LAB_1 Performing Organization Address City/[facility] Code Phon e Number HP CONVERSION Bilirubin, Total (10/26/2009 4:00 PM CDT) athologist Signature Bilirubin Total 0.3 0.2 - 1.2 HP CONVERSION mg/dL Specimen (Source) Anatomical Collection Method Collection Time Re ceived Time Location / / Volume Laterality 10/26/2009 4:00 PM CDT Pauline العراقي-C LAB_1 Performing Organization Address City/[facility]/ZIP Code Phon e Number HP CONVERSION (ABNORMAL) AST (10/26/2009 4:00 PM CDT) [facility] gist Method Time Signature Aspartate 79 (H) 0 - 45 HP CONVERSION Aminotransferase U/L Specimen (Source) Anatomical Collection Method Collection Time Re ceived Time Location / / Volume Laterality 10/26/2009 4:00 PM CDT Pauline Malone Barbara BAUM LAB_1 Performing Organization Address City/[facility] Code Phon e Number HP CONVERSION (ABNORMAL) ALT (SGPT) (10/26/2009 4:00 PM CDT) [facility] gist Method Time Signature Alanine 99 (H) 4 - 55 HP CONVERSION Aminotransferase U/L Specimen (Source) Anatomical Collection Method Collection Time Re ceived Time Location / / Volume Laterality 10/26/2009 4:00 PM CDT Pauline Malone Barbara BAUM LAB_1 Performing Organization Address [facility] Phon e Number HP CONVERSION Alkaline Phosphatase, Total (10/26/2009 4:00 PM CDT) P athologist Signature Alk Phos 61 25 - 135 U/L HP CONVERSION Specimen (Source) Anatomical Collection Method Collection Time Re ceived Time Location / / Volume Laterality 10/26/2009 4:00 PM CDT Pauline W Barbara BAUM LAB_1 Performing Organization Address [facility] Phon e Number HP CONVERSION documented in this encounter Visit Diagnoses Not on filedocumented in this encounter Care Teams Fisher Pound Net Or Trap Relationship Specialty Start Date End Date Pauline Jimenez PA-C PCP - General 06/17/10 12/12/14 [address] [place] [address] documented as of this encounter
--- OUTSIDE RECORDS SUMMARY | 2022-02-26 10:51 | XMS_ITS | Encounter Summary ---
:1960 Author [facility] Address [address] [address] Care Team Providers Name Role Phone Qasim Jimenez PA-C Primary Care Provider Reason for Visit Reason Comments Other Encounter Details Date Type Department Care Team Description 05/29/[address] [facility], Message Other [address] [place] [address] Social History Tobacco Use Types Packs/Day Years Used Date Smoking Tobacco: Never Assessed Sex Assigned at Date Recorded Not on file documented as of this encounter [facility], Message - 05/29/2009 10:01 AM CDT Phone Note filed by [employer] at 07/07/10232 Author: [employer] Service: (none) Author Type: (none) Filed: 07/07/10232 Note Time: 05/29/091000 Status: Signed Cooking Appliance Repair Technician: [employer] (Resource) blood pressure 118/82 left arm,large adult size BP cuff applied,@ 0942,with pulse rate of 70. blood pressure taken with the clinic [facility] BP unit according to [facility] protocol. patient accompanied by relative today. thx!! Created on 29May2009 10:01am by JULIANE LIMON On 29May2009 12:53pm QASIM MAY wrote: Will continue meds without additional changes. Please inform patient. Acknowledged by QASIM MAY on 12:53pm On 29May2009 1:25pm LIDIA ROSARIO wrote: Message left for the pt. Acknowledged by LIDIA ROSARIO on 1:25pm MAKER GIFT WRAPPING documented in this encounter Plan of Treatment Not on filedocumented as of this encounter Visit Diagnoses Not on filedocumented in this encounter Care Teams Md Do Resident Urgent Care Relationship Specialty Start Date End Date Qasim Jimenez PA-C PCP - General 06/17/10 12/12/[address] [place] [address] documented as of this encounter
--- OUTSIDE RECORDS SUMMARY | 2022-02-26 10:51 | XMS_ITS | Encounter Summary ---
:1960 Author Organization [facility] Address [address] [place] [address] Care Team Providers Name Role Phone Pauline Jimenez PA-C Primary Care Provider Reason for Visit Reason Comments Device Check Encounter Details Date Type Department Care Team Description 04/15/2014 Office Visit [facility] Antonia Bryan, Bilateral sensorineural hear ing loss (Primary Dx); [address] [employer] [place] [address] [facility] [phone] [place] [address] Social History Tobacco Use Types Packs/Day Years Used Date Smoking Tobacco: Never Assessed Sex Assigned at Date Recorded Not on file documented as of this encounter Progress Notes Antonia Bryan AU.D. - 04/15/2014 1:40 PM CST HEARING AID REVIEW Name: Kishore Raya : 1960 Primary MD: Pauline Jimenez PA-C Date: 04/15/2014 Floor Renovator: TERRELL Brown Reason for Appointment: Problems/concerns Comments: Kishore was accompanied today by her mother and electrical designer. She is not hearing well with her hearing aids, the earhooks are loose, and the tubing is coming out of the left mold. Patient specific interventions: Cleaned molds, changed microphone screens, tubing, and earhooks. Hospitality Coordinator measurements indicate proper working condition of both aids. Reran feedback rehab department manager. Closed ventof left mold due to low level feedback. Follow-up plan/Next appointment: Annual hearing aid check. RINTENDENT SYSTEM OPERATION documented in this encounter Plan of Treatment Not on filedocumented as of this encounter Visit Diagnoses Diagnosis Bilateral sensorineural hearing loss - P rimary Sensorineural hearing loss, bilateral Unspecified hearing loss documented in this encounter Care Teams Wool Puller Relationship Specialty Start Date End Date Pauline Jimenez PA-C PCP - General 06/17/10 12/12/[address] [place] [address] documented as of this encounter
--- OUTSIDE RECORDS SUMMARY | 2022-02-26 10:51 | XMS_ITS | Encounter Summary ---
:1960 Author Organization [facility] Address [address] [address] Care Team Providers Name Role Phone Barbara Pauline Malone PA-C Primary Care Provider Reason for Visit Reason Comments Other Encounter Details Date Type Department Care Team Description 09/03/2010 Telephone [facility], Message Other [address] [place] [address] Social History Tobacco Use Types Packs/Day Years Used Date Smoking Tobacco: Never Assessed Sex Assigned at Date Recorded Not on file documented as of this encounter Progress Notes Matilde Subramanian - 09/03/2010 3:44 PM CDT Phone Note filed by Matilde Subramanian RN at 09/04/10912 Author: Matilde Subramanian RN Service: (none) Author Type: (none) Filed: 09/04/10912 Note Time: 09/03/101543 Status: Addendum Heater Operator Helper: Matilde Subramanian RN (Registered Nurse) Related Notes: Original Note by Yovana Juarez (Physician) filed at 09/04/10912 REFILL APPOINTMENT NEEDED Please call patient and schedule appointment within 30 days. Medication has been renewed and faxed to pharmacy for 30 day supply only, per protocol. Comment:-Needs appt for physical or med check and labs creatinine and K+. Refilled Lisinopril 30 mg # 30 and Citalopram 40 mg # 30. Created on 03Sep2010 3:44pm by MATILDE SUBRAMANIAN On 04Sep2010 9:09am MONIKA BEASLEY wrote: Spoke to pt's ITE PROVIDER documented in this encounter Plan of Treatment Not on filedocumented as of this encounter Visit Diagnoses Not on filedocumented in this encounter Care Teams Ceo Relationship Specialty Start Date End Date Pauline Jimenez PA-C PCP - General 06/17/10 12/12/[address] [place] [address] documented as of this encounter
--- OUTSIDE RECORDS SUMMARY | 2022-02-26 10:51 | XMS_ITS | Encounter Summary ---
:1960 Author Organization [facility] Address [address] [place] [address] Care Team Providers Name Role Phone Pauline Jimenez PA-C Primary Care Provider Reason for Visit Reason Comments Eye Exam Diabetes Encounter Details Date Type Department Care Team Description 04/15/2014 Office Visit Angelina Trinh, Impaired fasting glucose (Primary Dx); Ophthalmology OD Examination of eyes and vision; [address] [facility] Anisometropia; [place] [address] Blvd Astigmatism, unspecified; [phone] [place], [place] Presbyopia [phone] (Wo rk) Social History Tobacco Use Types Packs/Day Years Used Date Smoking Tobacco: Never Assessed Sex Assigned at Date Recorded Not on file documented as of this encounter Progress Notes Angelina Fonseca, OD - 04/15/2014 10:01 AM CST General Medical Observation: Basically Healthy. Feels well. Complete eye exam for IFG/borderline diabetes. Assessment: Diagnosis (ICD9) and Associated Orders ICD-9-CM 1. Impaired fasting glucose 790.21 2. Examination of eyes and vision V72.0 [place] REFRACTION 3. Anisometropia 367.31 [place] REFRACTION 4. Astigmatism, unspecified 367.20 [place] REFRACTION 5. Presbyopia 367.4 [place] REFRACTION [no signs of diabetic retinopathy or CSME BE] Plan: -- Discussed findings with patient and reassured. Continue blood sugar control. -- New Glasses Rx given. -- Return 1 year, or sooner if vision changes. COMPLIANCE COORDINATOR documented in this encounter Plan of Treatment Not on filedocumented as of this encounter Visit Diagnoses Diagnosis Impaired fasting glucose - Primary Examination of eyes and vision Anisometropia Astigmatism, unspecified Presbyopia documented in this encounter Care Teams Tour Operator Relationship Specialty Start Date End Date Pauline Jimenez PA-C PCP - General 06/17/10 12/12/[address] [place] [address] documented as of this encounter
--- OUTSIDE RECORDS SUMMARY | 2022-02-26 10:51 | XMS_ITS | Encounter Summary ---
:1960 Author Organization [facility] Address [address], [place] [address] Care Team Providers Name Role Phone Needs Pcp, Assignment Primary Care Provider Reason for Visit Reason Comments Device Check Encounter Details Date Type Department Care Team Description 07/03/2016 Office Visit [facility] Antonia Bryan, Bilateral sensorineural [address] [address] [facility] JERE hearing loss ([place] [address] [facility] Dx) [phone] [place], [place] [address] Social History Tobacco Use Types Packs/Day Years Used Date Smoking Tobacco: Never Sex Assigned at Date Recorded Not on file documented as of this encounter Progress Notes Antonia Bryan AU.D. - 07/03/2016 4:51 PM CDT HEARING AID REVIEW Name: Kishore Raya : 1960 Primary MD: Assignment Needs PCP Date: 07/03/2016 Packing House Supervisor: JERE Brown Reason for Appointment: Problems/concerns Comments: Feedback when lying down. Kishore has been sleeping with her aids on because she didn't knowit was ok not to. Aids are too loud at work and she them turns down. Kishoer's employer refuses to provide an park interpreter for her for meetings and reviews, though she has made repeated requests. Kishore would like the aids to be louder. Her initial remark was that the aids are too noisy, but with further discussion, she was not referring to the aids having circuit noise or distortion, but that they supervisor opening and picking the noise level at work. Patient specific interventions: Changed the mics screens that were dirty and changed tubing and earhooks. Checked the volume controls and both are functioning appropriately. There are four steps available for increased gain above the default setting. Researched other power aids such as the newer Arlene and Resound Adalberto. Kishore's current aids have more gain than those models. Although the current aids are 6 years old and insurance would cover new ones, there is not significant justification for ordering new ones. With new aneudy screens and earhooks, Kishore will likely appreciate increased gain in the aids. Follow-up plan/Next appointment: Recheck as needed. documented in this encounter Plan of Treatment Not on filedocumented as of this encounter Visit Diagnoses Diagnosis Bilateral sensorineural hearing loss - P rimary Sensorineural hearing loss, bilateral documented in this encounter Care Teams Elementary School Teacher'S Aide Relationship Specialty Start Date End Date Needs Pcp, Assignment PCP - General 12/13/14 [place] [address] documented as of this encounter
--- OUTSIDE RECORDS SUMMARY | 2022-02-26 10:51 | XMS_ITS | Encounter Summary ---
:1960 [facility] Address [address] [place] [address] Care Team Providers Name Role Phone Pauline Jimenez PA-C Primary Care Provider Reason for Visit Reason Comments Pharmacy Encounter Details Date Type Department Care Team Description 12/06/2010 Telephone [facility] Pauline Jimenez PA-C Pharmacy [address] [facility] [address] [place] [address] [place] [address] [phone] (Wo rk) Social History Tobacco Use Types Packs/Day Years Used Date Smoking Tobacco: Never Assessed Sex Assigned at Date Recorded Not on file documented as of this encounter Nursing Notes Sandra Thakur - 12/06/2010 11:51 AM CDT Non -Symptom Message from Front [place] Primary Care Provider: Pauline West PA-C, PA-C Message: Tori from [facility] calling the mistakenly faxed ov an RX for Lisinopril, please disregard documented in this encounter Plan of Treatment Not on filedocumented as of this encounter Visit Diagnoses Not on filedocumented in this encounter Care Teams Lpn Relationship Specialty Start Date End Date Pauline Jimenez PA-C PCP - General 06/17/10 12/12/[address] [place] [address] documented as of this encounter
--- OUTSIDE RECORDS SUMMARY | 2022-02-26 10:51 | XMS_ITS | Encounter Summary ---
:1960 Author Organization [facility] Address [address], [place] [address] Care Team Providers Name Role Phone Pauline Jimenez PA-C Primary Care Provider Encounter Details Date Type Department Care Team Description 09/08/2009 PN Conversion Only CHRISTIAN CONVERSION Ashley Jimenez PA-C [address] [place], [place] [address] (Wo rk) Social History Tobacco Use Types Packs/Day Years Used Date Smoking Tobacco: Never Assessed Sex Assigned at Date Recorded Not on file documented as of this encounter Plan of Treatment Not on filedocumented as of this encounter Procedures Procedure Name Priority Date/Time Associated Diagnosis Comme nts GT (GAMMA GT) Routine 09/08/2009 9:32 AM Results for this CDT procedure are i n the results section. ALT (SGPT) Routine 09/08/2009 9:32 AM Results f or this CDT procedure are i n the results section. AST Routine 09/08/2009 9:32 AM Results f or this CDT procedure are i n the results section. BILIRUBIN, TOTAL Routine 09/08/2009 9:32 AM Resul ts for this CDT procedure are i n the results section. ALKALINE Routine 09/08/2009 9:32 AM Results f or this PHOSPHATASE, TOTAL CDT procedure are in the results section. documented in this encounter Results (ABNORMAL) GT (Gamma GT) (09/08/2009 9:32 AM CDT) Analysis Performed At Patho logist Time Signature Gamma-Glutamyl 67 (H) 1 - 48 U/L HP CONVERSION Transferase Specimen (Source) Anatomical Collection Method Collection Time Re ceived Time Location / / Volume Laterality 09/08/2009 9:32 AM CDT Pauline العراقي-C LAB_1 Performing Organization Address [facility] Phon e Number HP CONVERSION Bilirubin, Total (09/08/2009 9:32 AM CDT) P athologist Signature Bilirubin Total 0.5 0.2 - 1.2 HP CONVERSION mg/dL Specimen (Source) Anatomical Collection Method Collection Time Re ceived Time Location / / Volume Laterality 09/08/2009 9:32 AM CDT Pauline العراقي-C LAB_1 Performing Organization Address [facility] Phon e Number HP CONVERSION (ABNORMAL) AST (09/08/2009 9:32 AM CDT) [facility] gist Method Time Signature Aspartate 59 (H) 0 - 45 HP CONVERSION Aminotransferase U/L Specimen (Source) Anatomical Collection Method Collection Time Re ceived Time Location / / Volume Laterality 09/08/2009 9:32 AM CDT Pauline العراقي-C LAB_1 Performing Organization Address [facility] Phon e Number HP CONVERSION (ABNORMAL) ALT (SGPT) (09/08/2009 9:32 AM CDT) [facility] gist Method Time Signature Alanine 84 (H) 4 - 55 HP CONVERSION Aminotransferase U/L Specimen (Source) Anatomical Collection Method Collection Time Re ceived Time Location / / Volume Laterality 09/08/2009 9:32 AM CDT Pauline العراقي-C LAB_1 Performing Organization Address [facility] Phon e Number HP CONVERSION Alkaline Phosphatase, Total (09/08/2009 9:32 AM CDT) athologist Signature Alk Phos 65 25 - 135 U/L HP CONVERSION Specimen (Source) Anatomical Collection Method Collection Time Re ceived Time Location / / Volume Laterality 09/08/2009 9:32 AM CDT Pauline العراقي-C LAB_1 Performing Organization Address [facility] Phon e Number HP CONVERSION documented in this encounter Visit Diagnoses Not on filedocumented in this encounter Care Teams Indoor Plant Technician Relationship Specialty Start Date End Date Pauline Jimenez PA-C PCP - General 06/17/10 12/12/[address] [place] [address] documented as of this encounter
--- OUTSIDE RECORDS SUMMARY | 2022-02-26 10:51 | XMS_ITS | Encounter Summary ---
:1960 Author Organization [facility] Address [address] [place] [address] Care Team Providers Name Role Phone Pauline Jimenez PA-C Primary Care Provider Encounter Details Date Type Department Care Team Description 08/11/2009 Office Visit [facility] sandraramirez Pauline Jimenez PA-C [address] [facility] [address] [place] [address] [place] [address] [phone] (Wo rk) Social History Tobacco Use Types Packs/Day Years Used Date Smoking Tobacco: Never Assessed Sex Assigned at Date Recorded Not on file documented as of this encounter Last Filed Vital Signs Vital Sign Reading Time Taken Comments Blood Pressure 124/82 08/11/2009 8:25 AM CDT Pulse 64 08/11/2009 8:25 AM CDT Temperature - - Respiratory Rate - - Oxygen Saturation - - Inhaled Oxygen Concentration - - Weight 60.8 kg (133 lb 15.9 oz) 08/11/2009 8:25 AM C: 6 0.8kg CDT Height 155.6 cm (5' 1.25) 08/11/2009 8:25 AM C: 155.6c m CDT Body Mass Index 25.11 08/11/2009 8:25 AM CDT documented in this encounter Progress Notes Pauline Jimenez PA-C - 08/11/2009 12:01 AM CDT Progress Notes signed by Pauline West PA-C at 08/11/09 0926 Author: Pauline West PA-C Service: (none) Author Type: Physician Ceo Na Filed: 07/07/10 2244 Note Time: 08/11/092014 Status: Signed Manager Book: Pauline West PA-C (Resource) Clinic Visit IMPRESSION: Hypercholesterolemia, controlled. Hypertension, controlled. SUBJECTIVE: This is a follow visit for this problem. BGS monitoring done by patient: Evaluations: Needs lipids. Past Medical History: Pt's problem list was reviewed and updated today on the Health Profile of the Electronic Medical Record. Exercise: Inadequate. Obesity: Weight increasing. Patient's active medical problems were reviewed today and updated on the Health Profile screen of the Electronic Medical Record. Adverse Drug Reactions: Pt's Adverse Drug Reactions were reviewed, and updated today on the Health Profile of the Electronic Medical Record. Medications: Reviewed and updated today on Health Profile in the Electronic Medical Record. Tobacco: None. No Abdominal Pain. No Arthralgias. No Chest Pain at rest. No Chest Pain with exertion. No Dyspnea. No Edema. No Fatigue. No Headache. No Jaundice. No Liver dysfunction. No Light-headedness No Myalgias. OBJECTIVE: Vital Signs: Vital Signs taken today were reviewed on the flowsheet in LastWord. General: Patient in NAD. HEENT: No neck mass/thyromegaly. CV: RRR without murmurs, rubs, or gallops. No carotid bruits. 1+ pedal pulses on left. 1+ pedal pulses on right. Resp: Clear to auscultation without crackles, wheezes or distress. Abdomen: Soft, non-tender, without hepatospleenomegaly, masses, or hernias. Lower Extremities: No edema. Psychiatric: A&O, normal affect and insight, does not appear depressed or anxious. ASSESSMENT: Hypercholesterolemia, controlled. Hypertension, controlled. PLAN: Counseled on dietary modification Counseled on regular exercise. Counseled on starting exercise regimen slow and increase exertion level gradually. Counseled on hypertension and risks. Counseled on monitoring blood pressure. Counseled on goal BP <130/80. Counseled on myalgias/rhabdomyalysis. Counseled on obesity risks. Counseled on reason for treatment/goals Discussed risks, benefits, and alternatives of therapy Pt. will continue current medications at the same dosages; see Health Profile in the Electronic Medical Record. Labs today: A1C, Cholesterol labs, Glucose, fasting, Hypertension labs, TSH, Results Notifications: We will mail lab results to patient. If results not received in the next month, patient instructed to call. Follow-up visit: Follow-up visit with me in 1 year. She states her depression is well controlled with Celexa. Her PHQ-9 is a 0. Continue *SH~PC~D/LIP/HTN ~Shorthand Note completed on: 08/11/2009 9:25 AM documented in this encounter Plan of Treatment Not on filedocumented as of this encounter Visit Diagnoses Not on filedocumented in this encounter Care Teams Top Stop Attacher Relationship Specialty Start Date End Date Pauline Jimenez PA-C PCP - General 06/17/10 12/12/[address] [place] [address] documented as of this encounter
--- OUTSIDE RECORDS SUMMARY | 2022-02-26 10:51 | XMS_ITS | Encounter Summary ---
:1960 Author Organization [email or web address] Address [address] [address] Care Team Providers Name Role Phone Needs Pcp, Assignment Primary Care Provider Reason for Visit Reason Comments HEARING LOSS Encounter Details Date Type Department Care Team Description 09/20/2016 Office Visit [facility] Antonia Bryan, Bilateral sensorineural [address] [facility] JERE hearing loss (Primary [id number] [facility] Dx) [phone] Social History Tobacco Use Types Packs/Day Years Used Date Smoking Tobacco: Never Sex Assigned at Date Recorded Not on file documented as of this encounter Progress Notes Antonia Bryan AU.D. - 09/20/2016 8:30 AM CDT HEARING AID REVIEW Name: Kishore Raya : 1960 Primary MD: Assignment Needs PCP Date: 09/20/2016 Still Tender: JERE Brown Ordering MD: Aleksandr Walter MD Reason for Appointment: Problems/concerns Auiological Evaluation: Subjective: Kishore is accompanied today by her mother and supervisor maple products. Both Kishore and her mother feel there has been a change in hearing. Specifically, Mother feels Kishore does not respond as well when she is called from downstairs. Objective: Otoscopy revealed clear canals and visible tympanic membranes, bilaterally. Pure tone audiometric testing revealed a profound loss, bilaterally. The loss has been previously documented as sensorineural in nature. . Assessment: Compared to findings from 2011, hearing sensitivity is actually slightly better in the low frequencies. Low frequency hearing may have been somewhat decreased in 2011 due to negative middle ear pressure. Patient specific interventions: Replaced microphone screens. Store Stocker measurements indicate proper working condition. Follow-up plan/Next appointment: Discussed findings with Kishore and her mother. Although insurance would cover new aids for Kishore, there really is not a strong justification for new aids at this time. Her current aids are 6 years old. Recommend an annual hearing aid check. Provided extra microphone screens. Kishore is able to change them herself. documented in this encounter Plan of Treatment Not on filedocumented as of this encounter Visit Diagnoses Diagnosis Bilateral sensorineural hearing loss - P rimary Sensorineural hearing loss, bilateral documented in this encounter Care Teams Ground Support Agent Relationship Specialty Start Date End Date Needs Pcp, Assignment PCP - General 12/13/14 [place] [address] documented as of this encounter
--- OUTSIDE RECORDS SUMMARY | 2022-02-26 10:51 | XMS_ITS | Encounter Summary ---
:1960 Author [facility] Address [address] [place] [address] Care Team Providers Name Role Phone Pauline Jimenez PA-C Primary Care Provider Reason for Visit Reason Comments Other Encounter Details Date Type Department Care Team Description 07/12/2009 Telephone [facility], Message Other [address] [place], [place] [phone] Social History Tobacco Use Types Packs/Day Years Used Date Smoking Tobacco: Never Assessed Sex Assigned at Date Recorded Not on file documented as of this encounter Progress Notes Center, Message - 07/12/2009 2:24 PM CDT Phone Note filed by Echodio at 07/07/10626 Author: Echodio Service: (none) Author Type: (none) Filed: 07/07/10626 Note Time: 07/12/091423 Status: Signed Registration Manager: Echodio (Resource) PRESCRIPTION REFILL Request #1: Please provide enough refills to last until patient's next visit. Comment:-new pharmacy for patient Pharmacy Seq #:-[phone] Pharmacy Name-Phone/Fax:-[facility] Street or City:[facility] Clinician Name:Maxx West Drug Name/Strength:- Simvastatin tab 20mg Sig: Dose/Route/Freq:-take one tab daily in the evening Quantity & Last Fill:-30 PRESCRIPTION REFILL Request #2: Comment:- Drug Name/Strength:-Lisinopril 20mg Sig: Dose/Route/Freq:-take one tab daily Quantity & Last Fill:-30 PRESCRIPTION REFILL Request #3: Comment:- Drug Name/Strength:-Celexa 40mg Sig: Dose/Route/Freq:-take one tab daily Quantity & Last Fill:-30 *ECODE~PNRF3 Created on 12Jul2009 2:24pm by KATYA TORRES On 13Jul2009 10:49am MOHSEN SULTANA wrote: REFILL APPOINTMENT NEEDED Please call patient and schedule appointment within 30 days. Medication has been renewed and faxed to pharmacy for 30 day supply only, per protocol. Comment:-med ck / Blood pressure ck due. On 13Jul2009 1:22pm ISABELA ROSALES wrote: Left message at home that prescriptions were called in, and pt needs appointment in next 30 days. ERY BUYER documented in this encounter Plan of Treatment Not on filedocumented as of this encounter Visit Diagnoses Not on filedocumented in this encounter Care Teams Glassine Machine Tender Relationship Specialty Start Date End Date Pauline Jimenez PA-C PCP - General 06/17/10 12/12/14 [address] [place] [address] documented as of this encounter
--- OUTSIDE RECORDS SUMMARY | 2022-02-26 10:51 | XMS_ITS | Encounter Summary ---
:1960 Author Organization [facility] Address [address] [address] Care Team Providers Name Role Phone Qasim Jimenez PA-C Primary Care Provider Reason for Visit Reason Comments Other Encounter Details Date Type Department Care Team Description 12/19/2009 Telephone [facility] Komal Dubon LPN Other [address] [place] [address] Social History Tobacco Use Types Packs/Day Years Used Date Smoking Tobacco: Never Assessed Sex Assigned at Date Recorded Not on file documented as of this encounter Progress Notes Qasim Jimenez PA-C - 12/19/2009 11:11 AM CDT Phone Note filed by Qasim May PA-C at 07/07/101945 Author: Qasim May PA-C Service: (none) Author Type: Physician Rn Progressive Care Unit Filed: 07/07/101945 Note Time: 12/19/09 1111 Status: Signed Superintendent Service: Qasim May PA-C (Physician Rn Progressive Care Unit) Spoke to her mother (patient is deaf). I would like her to stop the Zocor for 2 weeks and then repeat AST, ALT, Alk phos, Tbili, and GGT (abnormal LFT's). If still abnormal, I would like her to consult GI regarding abnormal LFT's. Also, please schedule her for RUQ US (abnormal LFT's). Created on 19Dec2009 11:11am by QASIM MAY On 19Dec2009 11:42am KOMAL DAVIDSON wrote: Correct lab orders sent to the lab. Acknowledged by KOMAL DAVIDSON on 11:42am On 19Dec2009 11:51am KOMAL DAVIDSON wrote: Appt. made for 12-21-09 at [place] [facility]-in [facility].7:55. Acknowledged by KOMAL DAVIDSON on 11:51am On 19Dec2009 1:52pm KOMAL DAVIDSON wrote: Called pt.'s mother to let her know her appt.time for the US. Acknowledged by KOMAL DAVIDSON on 1:52pm WOOD FALLER documented in this encounter Plan of Treatment Not on filedocumented as of this encounter Visit Diagnoses Not on filedocumented in this encounter Care Teams Sensitometrist Relationship Specialty Start Date End Date Qasim Jimenez PA-C PCP - General 06/17/10 12/12/14 [address] [place] [address] documented as of this encounter
--- OUTSIDE RECORDS SUMMARY | 2022-02-26 10:51 | XMS_ITS | Encounter Summary ---
:1960 Author Organization [facility] Address [address], [place] [address] Care Team Providers Name Role Phone Pauline Jimenez PA-C Primary Care Provider Encounter Details Date Type Department Care Team Description 01/11/2010 PN Conversion Only [facility] CONVERSION Ashley Jimenez PA-C [address] [place], [place] [address] (Wo rk) Social History Tobacco Use Types Packs/Day Years Used Date Smoking Tobacco: Never Assessed Sex Assigned at Date Recorded Not on file documented as of this encounter Plan of Treatment Not on filedocumented as of this encounter Procedures Procedure Name Priority Date/Time Associated Diagnosis Comme nts HEPATITIS BE Routine 01/11/2010 4:56 PM Results f or this ANTIGEN CDT procedure are i n the results section. HEPATITIS BE Routine 01/11/2010 4:56 PM Results f or this ANTIBODY CDT procedure are i n the results section. GT (GAMMA GT) Routine 01/11/2010 4:56 PM Results for this CDT procedure are i n the results section. ALPHA-FETOPROTEIN Routine 01/11/2010 4:56 PM Resu lts for this (AFP), TUMOR MARKER CDT procedur e are in the results section. ALT (SGPT) Routine 01/11/2010 4:56 PM Results f or this CDT procedure are i n the results section. AST Routine 01/11/2010 4:56 PM Results f or this CDT procedure are i n the results section. BILIRUBIN, TOTAL Routine 01/11/2010 4:56 PM Resul ts for this CDT procedure are i n the results section. ALKALINE Routine 01/11/2010 4:56 PM Results f or this PHOSPHATASE, TOTAL CDT procedure are in the results section. documented in this encounter Results Tumor Marker (AFP) (01/11/2010 4:56 PM CDT) athologist Signature Tumor Marker 3.0 0.0 - 9.0 HP CONVERSION Afp ng/mL Specimen (Source) Anatomical Collection Method Collection Time Re ceived Time Location / / Volume Laterality 01/11/2010 4:56 PM CDT Pauline العراقي-C LAB_1 Performing Organization Address City/[facility]/ZIP Code Phon e Number HP CONVERSION (ABNORMAL) HEPATITIS BE ANTIBODY (01/11/2010 4:56 PM CDT) [facility] gist Method Time Signature Hepatitis Be Positive (A) Negative HP CONVERSION Antibody Comment: The anti-HBe is repeatedly reactive, whi ch is consistent with recent or remote Hepatitis B infect ion. Anti-HBe can be present in a small proportion of surgery attendant beth HBV infections, but its presence usually indicates resol ution. If HBeAg is also positive, this may represent the tr ansition between the appearance of anti-HBe and decline of HB eAg and retesting in a month may be useful. Performed at [facility] [address] [place], [place] [address] Specimen (Source) Anatomical Collection Method Collection Time Re ceived Time Location / / Volume Laterality 01/11/2010 4:56 PM CDT Pauline العراقي-C LAB_1 Performing Organization Address City/[facility] Phon e Number HP CONVERSION HEPATITIS BE ANTIGEN (01/11/2010 4:56 PM CDT) Analysis Performed At [facility] logist Time Signature Hepatitis Be Negative Negative HP CONVERSION Antigen Comment: Negative Performed at [facility] [place], [place] [address] Specimen (Source) Anatomical Collection Method Collection Time Re ceived Time Location / / Volume Laterality 01/11/2010 4:56 PM CDT Pauline Jimenez PA-C LAB_1 Performing Organization Address City/[facility]/ZIP Code Phon e Number HP CONVERSION (ABNORMAL) GT (Gamma GT) (01/11/2010 4:56 PM CDT) Analysis Performed At Patho logist Time Signature Gamma-Glutamyl 70 (H) 1 - 48 U/L HP CONVERSION Transferase Specimen (Source) Anatomical Collection Method Collection Time Re ceived Time Location / / Volume Laterality 01/11/2010 4:56 PM CDT Pauline ANDREC LAB_1 Performing Organization Address City/[facility]/ZIP Code Phon e Number HP CONVERSION Bilirubin, Total (01/11/2010 4:56 PM CDT) P athologist Signature Bilirubin Total 0.4 0.2 - 1.2 HP CONVERSION mg/dL Specimen (Source) Anatomical Collection Method Collection Time Re ceived Time Location / / Volume Laterality 01/11/2010 4:56 PM CDT Pauline ANDREC LAB_1 Performing Organization Address [facility] Phon e Number HP CONVERSION (ABNORMAL) AST (01/11/2010 4:56 PM CDT) Patholo gist Method Time Signature Aspartate 75 (H) 0 - 45 HP CONVERSION Aminotransferase U/L Specimen (Source) Anatomical Collection Method Collection Time Re ceived Time Location / / Volume Laterality 01/11/2010 4:56 PM CDT Pauline العراقي-C LAB_1 Performing Organization Address [facility] Phon e Number HP CONVERSION (ABNORMAL) ALT (SGPT) (01/11/2010 4:56 PM CDT) Patholo gist Method Time Signature Alanine 117 (H) 4 - 55 HP CONVERSION Aminotransferase U/L Specimen (Source) Anatomical Collection Method Collection Time Re ceived Time Location / / Volume Laterality 01/11/2010 4:56 PM CDT Pauline العراقي-C LAB_1 Performing Organization Address City/[facility]/ZIP Code Phon e Number HP CONVERSION Alkaline Phosphatase, Total (01/11/2010 4:56 PM CDT) P athologist Signature Alk Phos 69 25 - 135 U/L HP CONVERSION Specimen (Source) Anatomical Collection Method Collection Time Re ceived Time Location / / Volume Laterality 01/11/2010 4:56 PM CDT Pauline العراقي-C LAB_1 Performing Organization Address City/State/ZIP Code Phon e Number HP CONVERSION documented in this encounter Visit Diagnoses Not on filedocumented in this encounter Care Teams Business Development Relationship Specialty Start Date End Date Pauline Jimenez PA-C PCP - General 06/17/10 12/12/[address] [place] [address] documented as of this encounter
--- OUTSIDE RECORDS SUMMARY | 2022-02-26 10:51 | XMS_ITS | Encounter Summary ---
:1960 Author Organization [facility] Address [address] [place] [address] Care Team Providers Name Role Phone Pauline Jimenez Faisal BAUM Primary Care Provider Encounter Details Date Type Department Care Team Description 04/27/2010 Office Visit [facility] Brent Bryan AU.D. [place] [address] [facility] [address] [place] [address] [place] [address] [phone] Social History Tobacco Use Types Packs/Day Years Used Date Smoking Tobacco: Never Assessed Sex Assigned at Date Recorded Not on file documented as of this encounter Progress Notes Antonia rByan AU.D. - 04/27/2010 12:01 AM CST Progress Notes signed by TERRELL Brown at 08/01/10 1300 Author: TERRELL Brown Service: (none) Author Type: Box Puller Filed: 08/01/10 1303 Note Time: 04/27/10 0001 Status: Signed Customer Acquisition Manager: TERRELL Brown (Box Puller) NAME: WOO RAYA MR#: [id number] ACCT: [id number] VISIT: [id number] DICTATING CLINICIAN: Terrell Brown CONFIRM #: [id number] LOC: 581 CLINIC PROGRESS NOTE DATE OF VISIT: 04/27/2010 : 1960 SUBJECTIVE: Woo was seen today for a hearing evaluation. She was accompanied by her mother and a asic design engineer. Woo has noted increased difficulty hearing and is also interested in new hearing aids if possible. OBJECTIVE: Pure tone thresholds reveal a profound hearing loss bilaterally. Tympanometry revealed normal middle ear compliance with slight negative middle ear pressure bilaterally. Speech audiometry was not assessed. ASSESSMENT: Compared to results from May of 2007, there is a decrease in sensitivity for both ears. PLAN: Following testing these results were discussed with Woo and her mother. New amplification was fit today. Woo had been most recently seen on April 13, at which time a hearing aid evaluation was conducted and amplification ordered. Woo does sleeps with both hearing aids in as a safety factor, but has noted some discomfort recently with her left ear mold. She also is getting feedback with her left mold. A hearing aid fitting was conducted today and follow up is scheduled for 2 weeks. An annual evaluation to monitor sensitivity is also suggested. NR:DEREK C: CONFIRM #: [id number] documented in this encounter Plan of Treatment Not on filedocumented as of this encounter Visit Diagnoses Not on filedocumented in this encounter Care Teams Turkey Roll Maker Relationship Specialty Start Date End Date Pauline Jimenez PA-C PCP - General 06/17/10 12/12/[address] [place] [address] documented as of this encounter
--- OUTSIDE RECORDS SUMMARY | 2022-02-26 10:51 | XMS_ITS | Encounter Summary ---
:1960 Author Organization [facility] Address [address], [place] [address] Care Team Providers Name Role Phone Pauline Jimenez PA-C Primary Care Provider Encounter Details Date Type Department Care Team Description 12/16/2009 PN Conversion Only EPISCOPALIAN CONVERSION Ashley Jimenez PA-C [address] [place], [place] [address] (Wo rk) Social History Tobacco Use Types Packs/Day Years Used Date Smoking Tobacco: Never Assessed Sex Assigned at Date Recorded Not on file documented as of this encounter Plan of Treatment Not on filedocumented as of this encounter Procedures Procedure Name Priority Date/Time Associated Diagnosis Comme nts HEP B SURFACE Routine 12/16/2009 11:36 AM Results for this ANTIGEN CONFIRM CDT procedure ar e in the results section. HEPATITIS B SURFACE Routine 12/16/2009 11:36 AM R esults for this ANTIBODY CDT procedure are i n the results section. HEP B SURFACE Routine 12/16/2009 11:36 AM Results for this ANTIGEN, NO REFLEX CDT procedure are in the results section. ALT (SGPT) Routine 12/16/2009 11:36 AM Results for this CDT procedure are i n the results section. AST Routine 12/16/2009 11:36 AM Results for this CDT procedure are i n the results section. documented in this encounter Results (ABNORMAL) HEP B SURFACE ANTIGEN CONFIRM (12/16/2009 11:36 AM CDT) [facility] Method Time Signature Hepatitis B NA (A) Non Confirmed HP CONVERSION Surface Antigen Confirmation Comment: Hepatitis B surface antigen (HBsAg) did neutralize using anti-HBs. This specimen is therefore POS ITIVE for HBsAg. False positives can occur. If the result is not supported by clinical evidence, repeat testing of a new sample usually helps clarify the diagnosis. TEST INFORMATION: Hepatitis B Surface Ag Confirmation This assay should not be used for blood donor screening, associated re-entry protocols, or for sc reening Human Cells, ??Tissues and Cellular and Tissue -Based Products (HCT/P). Corrected result; previously reported as Positive on 12/18/09 at 15:33 by I/AUT Performed at [address] [address] Specimen (Source) Anatomical Collection Method Collection Time Re ceived Time Location / / Volume Laterality 12/16/2009 11:36 AM CDT Pauline Jimenez MALCOM-C LAB_1 Performing Organization Address [facility] Phon e Number HP CONVERSION Hep B Surface Antigen, No Reflex (12/16/2009 11:36 AM CDT) athologist Signature Hep B Surf Ag N/A No normal HP CONVERSION range Comment: Corrected result; previously reported as Sent Ref on 12/16/09 at 16:37 by OLSMA Specimen (Source) Anatomical Collection Method Collection Time Re ceived Time Location / / Volume Laterality 12/16/2009 11:36 AM CDT Pauline العراقي-C LAB_1 Performing Organization Address City/[facility] Code Phon e Number HP CONVERSION Hepatitis B Surface Antibody (12/16/2009 11:36 AM CDT) athologist Signature Hep B Surf Ab N/A No normal HP CONVERSION range Comment: Corrected result; previously reported as Non-React on 12/16/09 at 16:37 by OLSMA Specimen (Source) Anatomical Collection Method Collection Time Re ceived Time Location / / Volume Laterality 12/16/2009 11:36 AM CDT Pauline العراقي-C LAB_1 Performing Organization Address [facility] Code Phon e Number HP CONVERSION (ABNORMAL) AST (12/16/2009 11:36 AM CDT[facility] Time Signature Aspartate 110 (H) 0 - 45 HP CONVERSION Aminotransferase U/L Specimen (Source) Anatomical Collection Method Collection Time Re ceived Time Location / / Volume Laterality 12/16/2009 11:36 AM CDT Pauline Jimenez PA-C LAB_1 Performing Organization Address City/[facility] Code Phon e Number HP CONVERSION (ABNORMAL) ALT (SGPT) (12/16/2009 11:36 AM CDT) [facility] gist Method Time Signature Alanine 120 (H) 4 - 55 HP CONVERSION Aminotransferase U/L Specimen (Source) Anatomical Collection Method Collection Time Re ceived Time Location / / Volume Laterality 12/16/2009 11:36 AM CDT Pauline Jimenez PA-C LAB_1 Performing Organization Address [facility] Phon e Number HP CONVERSION documented in this encounter Visit Diagnoses Not on filedocumented in this encounter Care Teams Speech Lang Path Therapist Relationship Specialty Start Date End Date Pauline Jimenez PA-C PCP - General 06/17/10 12/12/14 [address] [place] [address] documented as of this encounter
--- OUTSIDE RECORDS SUMMARY | 2022-02-26 10:51 | XMS_ITS | Encounter Summary ---
:1960 Author Organization [facility] Address [address], [place] [address] Care Team Providers Name Role Phone Barbara Pauline Malone PA-C Primary Care Provider Encounter Details Date Type Department Care Team Description 12/22/2009 PN Conversion Only [facility] [address] [place] [address] Social History Tobacco Use Types Packs/Day Years Used Date Smoking Tobacco: Never Assessed Sex Assigned at Date Recorded Not on file documented as of this encounter Plan of Treatment Not on filedocumented as of this encounter Procedures Procedure Name Priority Date/Time Associated Diagnosis Comme nts US ABD RUQ ORGANS Routine 12/22/2009 9:50 AM Resu lts for this CDT procedure are i n the results section. documented in this encounter Results US Abd RUQ Organs (12/22/2009 9:50 AM CDT) Anatomical Region Laterality Modality Abdomen Other Specimen (Source) Anatomical Location Collection Method / Collectio n Time Received Time / Laterality Volume Narrative 12/22/2009 9:50 AM CDT Right upper quadrant ultrasound FINDINGS: Visualized portions of the ivy creas unremarkable. ??Liver is difficult to penetrate and this may be s econdary to fatty infiltration. ??The region of the gallbl adder appears to show echogenic foci consistent with a contrac junior stone filled gallbladder. Common bile duct measures 5.3 mm which i s normal. ??Right kidney is unobstructed. CONCLUSION: 1. Apparent fatty infiltration of liver. 2. Apparent contracted stone filled gall bladder. ??Dirty shadow Dictating CRISTOBAL BELL MD Procedure Note Cristobal Pinedo MD - 08/31/2015Format ting of this note might be different from the original. Right upper quadrant ultrasound FINDINGS: Visualized portions of the ivy creas unremarkable. Liver is difficult to penetrate and this may be s econdary to fatty infiltration. The region of the gallblad keo appears to show echogenic foci consistent with a contrac junior stone filled gallbladder. Common bile duct measures 5.3 mm which i s normal. Right kidney is unobstructed. CONCLUSION: 1. Apparent fatty infiltration of liver. 2. Apparent contracted stone filled gall bladder. Dirty shadow Dictating CRISTOBAL BELL MD Pauline Jimenez PA-C RAD US documented in this encounter Visit Diagnoses Not on filedocumented in this encounter Care Teams Senior Paralegal Relationship Specialty Start Date End Date Pauline Jimenez PA-C PCP - General 06/17/10 12/12/[address] [place] [address] documented as of this encounter
--- OUTSIDE RECORDS SUMMARY | 2022-02-26 10:52 | XMS_ITS | Encounter Summary ---
:1960 Author Organization [facility] Address [address], [place] [address] Care Team Providers Name Role Phone Pauline Jimenez PA-C Primary Care Provider Encounter Details Date Type Department Care Team Description 07/08/2008 PN Conversion Only SABIANIST CONVERSION Ashley Jimenez PA-C [address] [place] [address] (Wo rk) Social History Tobacco Use Types Packs/Day Years Used Date Smoking Tobacco: Never Assessed Sex Assigned at Date Recorded Not on file documented as of this encounter Plan of Treatment Not on filedocumented as of this encounter Procedures Procedure Name Priority Date/Time Associated Comments Diagnosis ELECTROLYTES (NA, K, Routine 07/08/2008 10:25 Res ults for this CL, BICARB) AM CDT procedure are i n the results section. GLUCOSE Routine 07/08/2008 10:25 Results for this AM CDT procedure are i n the results section. THYROID STIMULATING Routine 07/08/2008 10:25 Resu lts for this HORMONE AM CDT procedure are i n the results section. LIPID PANEL AND Routine 07/08/2008 10:25 Results for this DIRECT LDL(IF NEEDED) AM CDT proced ure are in the results section. CREATININE / GFR Routine 07/08/2008 10:25 Results for this AM CDT procedure are i n the results section. COMPLETE BLOOD Routine 07/08/2008 10:25 Results f or this COUNT-W/DIFF AM CDT procedure are i n the results section. HGB A1C Routine 07/08/2008 10:25 Results for this AM CDT procedure are i n the results section. ALT (SGPT) Routine 07/08/2008 10:25 Results for this AM CDT procedure are i n the results section. AST Routine 07/08/2008 10:25 Results for this AM CDT procedure are i n the results section. ALBUMIN/CREAT RATIO Routine 07/08/2008 10:12 Resu lts for this AM CDT procedure are i n the results section. documented in this encounter Results (ABNORMAL) Complete Blood Count-W/Diff (07/08/2008 10:25 AM CDT) [facility] Method Time Signature White Blood Cell 6.8 3.8 - 11.0 HP CONVERSIO N Count K/cmm Red Blood Cell 4.69 3.70 - HP CONVERSION Count 5.20 m/cmm Hemoglobin 13.8 11.8 - HP CONVERSION 15.5 gm/dL Hematocrit 40.6 35.0 - HP CONVERSION 46.0 % Mean Corpuscular 86.7 80.0 - HP CONVERSION Volume 100.0 fl Mean Corpuscular 29.5 27.0 - HP CONVERSION Hemoglobin 34.0 pg Mean Corpuscular 34.0 32.0 - HP CONVERSION Hemoglobin Conc 36.5 gm/dL [place] RDW 13.4 11.0 - HP CONVERSION 15.0 % Platelet Count 281 140 - 450 HP CONVERSION k/cmm Differential Auto-Dif No normal HP CONVERSION Verify range Neutrophils 2.6 2.0 - 7.5 HP CONVERSION Absolute Count K/cmm Neutrophil 39.2 (L) 50.0 - HP CONVERSION 75.0 % Lymphocyte % 48.7 (H) 20.0 - HP CONVERSION 40.0 % Monocyte 8.4 5.0 - 14.0 HP CONVERSION % Eosinophil 3.2 0.0 - 6.0 HP CONVERSION % Basophil % 0.5 0.0 - 2.0 HP CONVERSION % Specimen (Source) Anatomical Collection Method Collection Time Re ceived Time Location / / Volume Laterality 07/08/2008 10:25 AM CDT Pauline Jimenez PA-C LAB_1 Performing Organization Address City/State/ZIP Code Phon e Number HP CONVERSION (ABNORMAL) ALT (SGPT) (07/08/2008 10:25 AM CDT) [facility] Method Time Signature Alanine 90 (H) 4 - 55 HP CONVERSION Aminotransferase U/L Specimen (Source) Anatomical Collection Method Collection Time Re ceived Time Location / / Volume Laterality 07/08/2008 10:25 AM CDT Pauline العراقي-C LAB_1 Performing Organization Address City/[facility] Phon e Number HP CONVERSION (ABNORMAL) AST (07/08/2008 10:25 AM CDT) [facility] Method Time Signature Aspartate 66 (H) 0 - 45 HP CONVERSION Aminotransferase U/L Specimen (Source) Anatomical Collection Method Collection Time Re ceived Time Location / / Volume Laterality 07/08/2008 10:25 AM CDT Pauline العراقي-C LAB_1 Performing Organization Address [facility] Phon e Number HP CONVERSION (ABNORMAL) Creatinine / GFR (07/08/2008 10:25 AM CDT) athologist Signature Creatinine 1.1 0.4 - 1.3 HP CONVERSION Serum mg/dL Est GFR >60 >60 HP CONVERSION Am Comment: -[place] [employer]-Nonjuox-Pbmkvih n reference range units: mL/min/1.73m2 Normal>60, moderate decrease 30 - 59, se liz decrease 15 - 29, renal failure <15 mL/min/1.73 m2 NOTE: Choose the eGFR result above appro priate for the race of the patient. Est GFR Non-Afr Am 53 (L) >60 HP CONVERSI ON Specimen (Source) Anatomical Collection Method Collection Time Re ceived Time Location / / Volume Laterality 07/08/2008 10:25 AM CDT Pauline العراقي-C LAB_1 Performing Organization Address City/[facility]/ZIP Code Phon e Number HP CONVERSION (ABNORMAL) Glucose (07/08/2008 10:25 AM CDT) athologist Signature Length Of Fast 12.0 Hours HP CONVERSION Lab Glucose 113 (H) 60 - 100 HP CONVERSION mg/dL Specimen (Source) Anatomical Collection Method Collection Time Re ceived Time Location / / Volume Laterality 07/08/2008 10:25 AM CDT Pauline العراقي-C LAB_1 Performing Organization Address City/[facility]/ZIP Code Phon e Number HP CONVERSION Electrolytes (NA, K, CL, Bicarb) (07/08/2008 10:25 AM CDT) P athologist Signature Sodium 138 137 - 147 HP CONVERSION mEq/L Potassium 4.3 3.5 - 5.2 HP CONVERSION mEq/L Chloride 102 98 - 110 HP CONVERSION mEq/L Bicarbonate 29 23 - 33 HP CONVERSION mmol/L Specimen (Source) Anatomical Collection Method Collection Time Re ceived Time Location / / Volume Laterality 07/08/2008 10:25 AM CDT Pauline العراقي-C LAB_1 Performing Organization Address City/State/ZIP Code Phon e Number HP CONVERSION Lipid Panel and Direct LDL(If Needed) (07/08/2008 10:25 AM CDT) [facility] gist Method Time Signature Length Of Fast 12.0 Hours HP CONVERSION Cholesterol/HDL 4.1 No normal HP CONVERSION Ratio Screen range Cholesterol 169 <200 mg/dL HP CONVERSION HDL Cholesterol 41 >40 mg/dL HP CONVERSION Triglycerides 131 0 - 149 HP CONVERSION mg/dL LDL Calculated 102 0 - 130 HP CONVERSION mg/dL Comment: Specimen (Source) Anatomical Collection Method Collection Time Re ceived Time Location / / Volume Laterality 07/08/2008 10:25 AM CDT Pauline العراقي-C LAB_1 Performing Organization Address City/[facility]/ZIP Code Phon e Number HP CONVERSION Thyroid Stimulating Hormone (07/08/2008 10:25 AM CDT) athologist Signature Thyroid 2.31 0.20 - HP CONVERSION Stimulating 4.50 Hormone uIU/mL Specimen (Source) Anatomical Collection Method Collection Time Re ceived Time Location / / Volume Laterality 07/08/2008 10:25 AM CDT Pauline العراقي-C LAB_1 Performing Organization Address City/State/ZIP Code Phon e Number HP CONVERSION (ABNORMAL) Hgb A1c (07/08/2008 10:25 AM CDT) athologist Signature HGB A1C 6.3 (H) <6.0 % HP CONVERSION Specimen (Source) Anatomical Collection Method Collection Time Re ceived Time Location / / Volume Laterality 07/08/2008 10:25 AM CDT Pauline العراقي-C LAB_1 Performing Organization Address City/[facility] Phon e Number HP CONVERSION Microalb/Creat Ratio (07/08/2008 10:12 AM CDT) [facility] Time Signature U Creat Random 79 mg/dL HP CONVERSION Microalbumin 14.0 0.0 - 30.0 HP CONVERSION Urine mg/L Microalbumin/Crea 17.7 0.0 - 30.0 HP CONVERSI ON tinine Ratio mg/G Comment: Your result is normal because there is l ittle or no protein in the urine, usually indicating healthy kidneys. 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
--- OUTSIDE RECORDS SUMMARY | 2022-02-26 10:52 | XMS_ITS | Encounter Summary ---
:1960 Author Organization [facility] Address [address] [place] [address] Care Team Providers Name Role Phone Pauline Jimenez PA-C Primary Care Provider Encounter Details Date Type Department Care Team Description 04/03/2007 Office Visit [facility] sandraramirez Pauline Jimenez PA-C [address] [facility] [address] [place] [address] [place] [address] [phone] (Wo rk) Social History Tobacco Use Types Packs/Day Years Used Date Smoking Tobacco: Never Assessed Sex Assigned at Date Recorded Not on file documented as of this encounter Last Filed Vital Signs Vital Sign Reading Time Taken Comments Blood Pressure 132/84 04/03/2007 9:53 AM PATROLLER Pulse 64 04/03/2007 9:53 AM PATROLLER Temperature - - Respiratory Rate - - Oxygen Saturation - - Inhaled Oxygen Concentration - - Weight 59.8 kg (131 lb 12.7 oz) 04/03/2007 9:53 AM C: 5 9.8kg PATROLLER Height 154.9 cm (5' 1) 04/03/2007 9:53 AM C: 154.9cm PATROLLER Body Mass Index 24.9 04/03/2007 9:53 AM PATROLLER documented in this encounter Progress Notes Pauline Jimenez PA-C - 04/03/2007 12:01 AM CST H&P signed by Pauline Jimenez PA-C at 04/03/07 4440 Author: Pauline West PA-C Service: (none) Author Type: Physician Automatic Seamer Filed: 07/07/10 0023 Note Time: 04/03/072014 Status: Signed Field Inspector: Pauline West PA-C (Physician Automatic Seamer) Preventive Exam & Pelvic IMPRESSION: Routine preventive exam. Hypertension. Hyperlipidemia. SUBJECTIVE: 47 y/o patient presents for a routine preventive physical and pelvic exam. Patient voices concerns about: Had some vaginal bleeding for a day back in February. She has not had this since. No abdominal pain. No other abnormal vaginal discharge. Mom brought up the concern of ongoing impulsive behaviors from [place]. She was suspended from work for two weeks after taking a co-workers purse and going through it. She hoards foods at home. Typically the foods she knows aren't good for her. Current contraception: See patient's surgical history. Past Medical History: Patient's active medical problems were reviewed and updated on the Health Profile screen of the Electronic Medical Record. 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 Other Medical/Surgical History: Adverse Drug Reactions: Patient's Adverse Drug Reactions were reviewed today, and updated on the Health Profile of the Electronic Medical Record. Current Medications: Reviewed today and updated on Health Profile in the Electronic Medical Record. Family History: (First degree family members) With the exception of any notes below, patient's family history was reviewed and unchanged from the Electronic Medical Record note dated 01/03/2006. Social History: Employment status: Employed. Marital Status: Single. Sexual History: Not sexually active. Habits Tobacco: None. Alcohol: None. Drug: Denies any drug use. Preventive Health Assessment: Performs monthly breast self-exams. Calcium intake adequate. Exercise inadequate. Lipid screen is needed. Uses seatbelts. Tetanus immunization is up-to-date. Review of Systems: With the exception of any items noted above, the remainder of complete ROS is negative. OBJECTIVE: Vital Signs: Vital Signs taken today were reviewed on the flowsheet in the Electronic Medical Record. General: Patient alert, in NAD. HEENT: PERRLA. Bilateral TM's, external <canals, oropharynx normal. Neck: Supple, without thyromegaly or mass. Heart: RRR without murmurs, rubs or gallops. Resp: Clear to auscultation >without crackles, wheezes or distress. Upper Extremities: FROM with good ?strength, no lesions or deformities. Breasts: Nontender, without masses, @nipple discharge, erythema, or axillary adenopathy. Abdomen: Consistent Awith abdominoplasty. Pelvic: Normal external genitalia and urethra. Mild vulvar atrophy. Moderate vaginal atrophy. Cervix surgically absent. Uterus Csurgically absent. No adenexal masses. Lymphatic: No neck, Dsupraclavicular, axillary or groin lymphadenopathy. Lower Extremities: FROM, normal gait, without lesions, edema or deformity. Pedal pulses Fintact. Skin: No lesions on inspection. Neuro: CN II-XII, motor & Gsensory function all intact. Psychiatric: Alert & oriented with normal affect and insight, does not appear depressed or anxious. ASSESSMENT: Routine preventive exam. Hypertension. Hyperlipidemia. PLAN: Follow-up in 1 year. Pap smear. Cholesterol (Lipid) panel. Fasting glucose. Hypertension labs. TSH. We will mail lab results to patient. If results not received in the next month, patient instructed to call. Prescriptions provided, see OP Med list on Health Profile in the Electronic Medical Record. Immunizations reviewed and updated in Health Profile of the Electronic Medical Record. Patient is up to date.Discussed with patient: Breast self-exam recommended. Recommended adequate calcium intake/osteoporosis prevention. Recommended a balanced nutritious diet. Benefits of regular exercise. Consult Mental Health regarding impulsive behaviors. Consider estrogen cream vaginally to see if that helps with bleeding. *SH~PC~PEF ~[place] Note completed on: 04/03/2007 4:57 PM OLLER documented in this encounter Plan of Treatment Not on filedocumented as of this encounter Visit Diagnoses Not on filedocumented in this encounter Care Teams Major General Relationship Specialty Start Date End Date Pauline Jimenez PA-C PCP - General 06/17/10 12/12/14 [address] [place] [address] documented as of this encounter
--- OUTSIDE RECORDS SUMMARY | 2022-02-26 10:52 | XMS_ITS | Encounter Summary ---
:1960 Author Organization [facility] Address [address] [address] Care Team Providers Name Role Phone Pauline Jimenez SARIKA Primary Care Provider Encounter Details Date Type Department Care Team Description 02/12/2007 PN Conversion Only ANABAPTIST CONVERSION Ramesh Hdz MD [address] [place] [address] (Wo rk) Social History Tobacco Use Types Packs/Day Years Used Date Smoking Tobacco: Never Assessed Sex Assigned at Date Recorded Not on file documented as of this encounter Plan of Treatment Not on filedocumented as of this encounter Procedures Procedure Name Priority Date/Time Associated Diagnosis Comme nts HEPATITIS B DNA, Routine 02/12/2007 10:24 AM Resu lts for this ULTRA QNT PCR PROVIDER NETWORK MGR procedure are in the results section. HEPATITIS A PANEL, Routine 02/12/2007 10:24 AM Re sults for this TOTAL + IGM ABYS PROVIDER NETWORK MGR procedure a re in the results section. ALT (SGPT) Routine 02/12/2007 10:24 AM Results for this PROVIDER NETWORK MGR procedure are i n the results section. BILIRUBIN, TOTAL Routine 02/12/2007 10:24 AM Resu lts for this PROVIDER NETWORK MGR procedure are i n the results section. ALKALINE Routine 02/12/2007 10:24 AM Results for this PHOSPHATASE, TOTAL PROVIDER NETWORK MGR procedure are in the results section. documented in this encounter Results Alkaline Phosphatase, Total (02/12/2007 10:24 AM PROVIDER NETWORK MGR) athologist Signature Alk Phos 87 25 - 135 U/L HP CONVERSION Specimen (Source) Anatomical Collection Method Collection Time Re ceived Time Location / / Volume Laterality 02/12/2007 10:24 AM PROVIDER NETWORK MGR Jennifer Hdz MD LAB_1 Performing Organization Address [facility]/ZIP Code Phon e Number HP CONVERSION ALT (SGPT) (02/12/2007 10:24 AM PROVIDER NETWORK MGR) [facility] Method Time Signature Alanine 53 4 - 55 HP CONVERSION Aminotransferase U/L Specimen (Source) Anatomical Collection Method Collection Time Re ceived Time Location / / Volume Laterality 02/12/2007 10:24 AM PROVIDER NETWORK MGR Jennifer Hdz MD LAB_1 Performing Organization Address City/[facility] Code Phon e Number HP CONVERSION Bilirubin, Total (02/12/2007 10:24 AM PROVIDER NETWORK MGR) athologist Signature Bilirubin Total 0.5 0.2 - 1.2 HP CONVERSION mg/dL Specimen (Source) Anatomical Collection Method Collection Time Re ceived Time Location / / Volume Laterality 02/12/2007 10:24 AM PROVIDER NETWORK MGR Jennifer Hdz MD LAB_1 Performing Organization Address [facility] Phon e Number HP CONVERSION (ABNORMAL) Hepatitis A Panel, Total + Igm Abys (02/12/2007 10:24 AM PROVIDER NETWORK MGR) [facility] Method Time Signature Hepatitis A Total POSITIVE NEG HP CONVERSIO N Antibody (A) Hepatitis A IgM NEG NEG HP CONVERSION Antibody Hepatitis A SEE NOTE No normal HP CONVERSION Interpretation range Comment: The pattern of positive total anti-HAV a nd negative IgM anti-HAV is consistent with two clinical situations: (1) recovered Hepatitis A infection, or (2) antibody response to H AV vaccination. Performed at [facility] [address] [place] [address] 8410 8 Specimen (Source) Anatomical Collection Method Collection Time Re ceived Time Location / / Volume Laterality 02/12/2007 10:24 AM PROVIDER NETWORK MGR Jennifer Hdz MD LAB_1 Performing Organization Address [facility] Phon e Number HP CONVERSION (ABNORMAL) Hepatitius B DNA, Ultra Qnt PCR (02/12/2007 10:24 AM PROVIDER NETWORK MGR) athologist Signature Hepatitis B 4.3 (H) <1.6 log HP CONVERSION DNA Quant PCR IU Comment: The unit of measure for the above result is log IU/mL VIRAL LOAD RESULT FOR HBV DNA IS 18, 100 IU/ML Interpretive data: TEST INFORMATION: HBV DNA Ultrasensitive Qnt by PCR [facility] [employer] has determined that HB V DNA by TaqMan has an analytic specificity of greater t carrillo 99%. Rarely (less than 1%), a patient negative for H BV may test positive on this assay. Results in those cases are usually in the range of 40-600 IU/mL. A result o f less than 40 HBV IU/mL does not rule out the presence of PCR inhibitors in the patient specimen or hepatitis B v irus DNA concentrations below the limit of detect ion by the assay. Care should be taken when interpreting a ny single HBV DNA determination. Assay methodology is Real-Time PCR using Sabrina AUDREY TaqMan HBV Analyte Specific Reagent. Thi s is a nucleic acid amplification test for the quantita tion of hepatitis B virus DNA in human serum or plasma. The analytic measurement range of this a ssay is 1.6 to 8.3 HBV DNA log IU/mL (40 to 200,000,000 IU/ mL) 1 IU/mL of HBV DNA is approximately 5 co pies/mL. 1 IU/mL of HBV DNA is approximately 0.00 0018 pg/mL. The International Unit (IU) is the assig brenden unit designation of the [employer] S tandard for HBV DNA assays by the WHO Expert Committ ee on Biological Standardization (ECBS) and was assigned a titer of 1,000,000 IU/mL. The WHO HBV Internation al Standard is a genotype A subtype adw2 isolate. Analyte Specific Reagents (ASR) are used in many laboratory tests necessary for standard medical care and generally do not require U.S. Food and D rug Administration approval. This test was developed and it s performance characteristics determined by [facility] [employer] at[employer]. It has not been approved or cleared by [facility] U.S. Food and Drug Administration. This test should no t be regarded as investigational or for research use. This test is performed pursuant to an ag reement with [employer] This assay should not be used for blood donor screening, associated re-entry protocols, or for sc reening Human Cell, Tissues and Cellular Tissue-Based Products (HCT/P). 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
--- OUTSIDE RECORDS SUMMARY | 2022-02-26 10:52 | XMS_ITS | Encounter Summary ---
:1960 Author Organization [facility] Address [address] [address] Care Team Providers Name Role Phone Pauline Jimenez PA-C Primary Care Provider Encounter Details Date Type Department Care Team Description 04/03/2007 PN Conversion Only ANABAPTIST CONVERSION Ashley Jimenez PA-C [address] [place] [address] (Wo rk) Social History Tobacco Use Types Packs/Day Years Used Date Smoking Tobacco: Never Assessed Sex Assigned at Date Recorded Not on file documented as of this encounter Plan of Treatment Not on filedocumented as of this encounter Procedures Procedure Name Priority Date/Time Associated Comments Diagnosis ELECTROLYTES (NA, K, Routine 04/03/2007 10:47 Res ults for this CL, BICARB) AM HOME IMPROVEMENT INSTALLER procedure are i n the results section. GLUCOSE Routine 04/03/2007 10:47 Results for this AM HOME IMPROVEMENT INSTALLER procedure are i n the results section. THYROID STIMULATING Routine 04/03/2007 10:47 Resu lts for this HORMONE AM HOME IMPROVEMENT INSTALLER procedure are i n the results section. LIPID PANEL AND Routine 04/03/2007 10:47 Results for this DIRECT LDL(IF NEEDED) AM HOME IMPROVEMENT INSTALLER proced ure are in the results section. CREATININE / GFR Routine 04/03/2007 10:47 Results for this AM HOME IMPROVEMENT INSTALLER procedure are i n the results section. ALBUMIN/CREAT RATIO Routine 04/03/2007 10:47 Resu lts for this AM HOME IMPROVEMENT INSTALLER procedure are i n the results section. HGB A1C Routine 04/03/2007 10:47 Results for this AM HOME IMPROVEMENT INSTALLER procedure are i n the results section. ALT (SGPT) Routine 04/03/2007 10:47 Results for this AM HOME IMPROVEMENT INSTALLER procedure are i n the results section. AST Routine 04/03/2007 10:47 Results for this AM HOME IMPROVEMENT INSTALLER procedure are i n the results section. BUN Routine 04/03/2007 10:47 Results for this AM HOME IMPROVEMENT INSTALLER procedure are i n the results section. ANATOMICAL PATH Routine 04/03/2007 8:54 AM Result s for this LIQUID BASED HOME IMPROVEMENT INSTALLER procedure are i n the results section. documented in this encounter Results (ABNORMAL) ALT (SGPT) (04/03/2007 10:47 AM HOME IMPROVEMENT INSTALLER) [facility] gist Method Time Signature Alanine 70 (H) 4 - 55 HP CONVERSION Aminotransferase U/L Specimen (Source) Anatomical Collection Method Collection Time Re ceived Time Location / / Volume Laterality 04/03/2007 10:47 AM HOME IMPROVEMENT INSTALLER Pauline Jimenez [employer]-C LAB_1 Performing Organization Address City/[facility]/ZIP Code Phon e Number HP CONVERSION (ABNORMAL) AST (04/03/2007 10:47 AM HOME IMPROVEMENT INSTALLER) [facility] gist Method Time Signature Aspartate 46 (H) 0 - 45 HP CONVERSION Aminotransferase U/L Specimen (Source) Anatomical Collection Method Collection Time Re ceived Time Location / / Volume Laterality 04/03/2007 10:47 AM HOME IMPROVEMENT INSTALLER Pauline Jimenez PA-C LAB_1 Performing Organization Address City/State/ZIP Code Phon e Number HP CONVERSION BUN (04/03/2007 10:47 AM HOME IMPROVEMENT INSTALLER) athologist Signature Blood Urea 21 5 - 26 HP CONVERSION Nitrogen mg/dL Specimen (Source) Anatomical Collection Method Collection Time Re ceived Time Location / / Volume Laterality 04/03/2007 10:47 AM HOME IMPROVEMENT INSTALLER Pauline Jimenez PA-C LAB_1 Performing Organization Address City/State/ZIP Code Phon e Number HP CONVERSION Creatinine / GFR (04/03/2007 10:47 AM HOME IMPROVEMENT INSTALLER) P athologist Signature Creatinine 1.0 0.4 - 1.3 HP CONVERSION Serum mg/dL Est GFR >60 >60 HP CONVERSION Am Est GFR Non-Afr 60 >60 HP CONVERSION Am Comment: -[place] Helen[place] and Mgd-Dxxuaog-Iuaggng n reference range units: mL/min/1.73m2 Normal>60, moderate decrease 30 - 59, se liz decrease 15 - 29, renal failure <15 mL/min/1.73 m2 Specimen (Source) Anatomical Collection Method Collection Time Re ceived Time Location / / Volume Laterality 04/03/2007 10:47 AM HOME IMPROVEMENT INSTALLER Pauline العراقي-C LAB_1 Performing Organization Address City/[facility]/ZIP Code Phon e Number HP CONVERSION (ABNORMAL) Glucose (04/03/2007 10:47 AM HOME IMPROVEMENT INSTALLER) P athologist Signature Length Of Fast 12.0 Hours HP CONVERSION Lab Glucose 102 (H) 60 - 100 HP CONVERSION mg/dL Specimen (Source) Anatomical Collection Method Collection Time Re ceived Time Location / / Volume Laterality 04/03/2007 10:47 AM HOME IMPROVEMENT INSTALLER Pauline العراقي-C LAB_1 Performing Organization Address [facility] Code Phon e Number HP CONVERSION Electrolytes (NA, K, CL, Bicarb) (04/03/2007 10:47 AM HOME IMPROVEMENT INSTALLER) P athologist Signature Sodium 139 137 - 147 HP CONVERSION mEq/L Potassium 4.2 3.5 - 5.2 HP CONVERSION mEq/L Chloride 101 98 - 110 HP CONVERSION mEq/L Bicarbonate 29 23 - 33 HP CONVERSION mmol/L Specimen (Source) Anatomical Collection Method Collection Time Re ceived Time Location / / Volume Laterality 04/03/2007 10:47 AM HOME IMPROVEMENT INSTALLER Pauline العراقي-C LAB_1 Performing Organization Address City/[facility] Code Phon e Number HP CONVERSION (ABNORMAL) Lipid Panel and Direct LDL(If Needed) (04/03/2007 10:47 AM HOME IMPROVEMENT INSTALLER) Patholo gist Method Time Signature Length Of Fast 12.0 Hours HP CONVERSION Cholesterol/HDL 4.9 No normal HP CONVERSION Ratio Screen range Cholesterol 235 (H) <200 mg/dL HP CONVERSION HDL Cholesterol 48 >40 mg/dL HP CONVERSION Triglycerides 223 (H) 0 - 149 HP CONVERSION mg/dL LDL Calculated 142 (H) 0 - 130 HP CONVERSION mg/dL Comment: Specimen (Source) Anatomical Collection Method Collection Time Re ceived Time Location / / Volume Laterality 04/03/2007 10:47 AM HOME IMPROVEMENT INSTALLER Pauline ANDREC LAB_1 Performing Organization Address [facility] Phon e Number HP CONVERSION (ABNORMAL) Hgb A1c (04/03/2007 10:47 AM HOME IMPROVEMENT INSTALLER) P athologist Signature HGB A1C 6.4 (H) <6.0 % HP CONVERSION Specimen (Source) Anatomical Collection Method Collection Time Re ceived Time Location / / Volume Laterality 04/03/2007 10:47 AM HOME IMPROVEMENT INSTALLER Pauline ANDREC LAB_1 Performing Organization Address [facility] Phon e Number HP CONVERSION Thyroid Stimulating Hormone (04/03/2007 10:47 AM HOME IMPROVEMENT INSTALLER) athologist Signature Thyroid 2.94 0.20 - HP CONVERSION Stimulating 4.50 Hormone uIU/mL Specimen (Source) Anatomical Collection Method Collection Time Re ceived Time Location / / Volume Laterality 04/03/2007 10:47 AM HOME IMPROVEMENT INSTALLER Pauline العراقي-C LAB_1 Performing Organization Address [facility] Phon e Number HP CONVERSION Microalb/Creat Ratio (04/03/2007 10:47 AM HOME IMPROVEMENT INSTALLER) Analysis Performed At Patho logist Time Signature U Creat Random 122 mg/dL HP CONVERSION Microalbumin 28.1 0.0 - 30.0 HP CONVERSION Urine mg/L Microalbumin/Crea 23.0 0.0 - 30.0 HP CONVERSI ON tinine Ratio mg/G Comment: Your result is normal because there is l ittle or no protein in the urine, usually indicating healthy kidneys. Specimen (Source) Anatomical Collection Method Collection Time Re ceived Time Location / / Volume Laterality 04/03/2007 10:47 AM HOME IMPROVEMENT INSTALLER Pauline العراقي-C LAB_1 Performing Organization Address [facility] Phon e Number HP CONVERSION Pap Smear (04/03/2007 8:54 AM HOME IMPROVEMENT INSTALLER) Patholo gist Method Time Signature PAP Smear SEE TEXT No normal HP CONVERSION Liquid Based range Comment: Patient: WOO RAYA ? CERVICAL CYTOLOGY REPORT Pathology # ??[id number] ?Date Obtained: ? Date Received: CYTOLOGIC IMPRESSION: Negative for intraepithelial lesion or m alignancy. Verified 04/10/07 by: ??Cristobal Whitt MD ? (electronic signature) ? ELISHA TIONAL DATA LMP: CLINICAL HIST ?HYST LIQUID BASED PAP VAGINAL SPECIMEN ADEQUACY: ?? Satisfactory. ENDOCERVICAL CELLS: ??Present. Specimen (Source) Anatomical Collection Method Collection Time Re ceived Time Location / / Volume Laterality 04/03/2007 8:54 AM HOME IMPROVEMENT INSTALLER Pauline Jimenez PA-C LAB_1 Performing Organization Address City/State/ZIP Code Phon e Number HP CONVERSION documented in this encounter Visit Diagnoses Not on filedocumented in this encounter Care Teams Manufactured Buildings Supervisor Relationship Specialty Start Date End Date Pauline Jimenez PA-C PCP - General 06/17/10 12/12/[address] [place] [address] documented as of this encounter
--- OUTSIDE RECORDS SUMMARY | 2022-02-26 10:52 | XMS_ITS | Encounter Summary ---
:1960 Author Organization [facility] Address [address] [address] Care Team Providers Name Role Phone Qasim Jimenez PA-C Primary Care Provider Encounter Details Date Type Department Care Team Description 02/20/2009 Office Visit [facility] rochelle Qasim Jimenez PA-C [address] [facility] [address] [place] [address] [place] [address] [phone] (Wo rk) Social History Tobacco Use Types Packs/Day Years Used Date Smoking Tobacco: Never Assessed Sex Assigned at Date Recorded Not on file documented as of this encounter Progress Notes Qasim Jimenez PA-C - 02/20/2009 12:01 AM CST Progress Notes signed by Qasim May PA-C at 03/23/09 0859 Author: Qasim May PA-C Service: (none) Author Type: Physician Mate Fishing Vessel Filed: 07/07/10 183 Note Time: 02/20/09 0001 Status: Signed Email Marketing Intern: Qasim May PA-C (Resource) NAME: WOO RAYA MR#: [id number] ACCT: [id number] VISIT: [id number] DICTATING CLINICIAN: QASIM MAY PA-C CONFIRM #: [id number] LOC: 502 CLINIC PROGRESS NOTE DATE OF VISIT: 02/20/2009 SUBJECTIVE: CHIEF CONCERN: Low blood pressure readings. HPI: Patient gets presents today with her mom acting as chemical process analyst. She is hearing impaired. For the past week she has been running low heart rate and low blood pressures. She has not been taking her blood pressure medications, since I spoke to her mom 3 days ago. She states her blood pressure is better; however, her heart rate is not increased. PAST MEDICAL HISTORY: Reviewed in patient health profile in [facility] today. CURRENT MEDICATIONS: Reviewed and updated in patient health profile in [employer] today. ADR/ALLERGIES: REVIEWED AND UPDATED IN PATIENT HEALTH PROFILE IN [facility] TODAY. SOCIAL HISTORY: No new exposures. REVIEW OF SYSTEMS: Further complete ROS negative. OBJECTIVE: VS: BP: 148/92. P: 56. Wt: 136.2 lb. This is a 48-year-old female in [facility]. She is alert and oriented x3. SKIN: Warm and dry. No rashes. No cyanosis. HEENT: Head is normocephalic. Ear canals clear. TMs cash with normal landmarks. Sclerae white. Conjunctivae pink. Posterior oropharynx pink, moist, without lesions. NECK: Supple without lymphadenopathy or thyromegaly. CARDIAC: Regular rate and rhythm with no murmurs, rubs, gallops. No carotid bruits. Pulses 2+ throughout. No pedal edema. LUNGS: CTAB. ABDOMEN: Soft. Bowel sounds positive. No masses. No tenderness. ASSESSMENT: 1. Hypertension. 2. Bradycardia. PLAN: Will have her hold the triamterene and the atenolol. Will have her restart lisinopril at 5 mg daily. I will see her back in 1-2 weeks for recheck. Mom is to contact me with any questions or concerns. I will do chest x-ray, EKG, CBC, electrolytes, creatinine, glucose, and thyroid function. She will be contacted with the results of those tests. FINAL IMPRESSION: 1. Hypertension 2. Bradycardia. TLW:[id number] C: 02/21/09 16:23 CONFIRM #: [id number] SPRINKLER DESIGNER documented in this encounter Plan of Treatment Not on filedocumented as of this encounter Procedures Procedure Name Priority Date/Time Associated Diagnosis Comme nts XR CHEST 2 VIEWS Routine 02/20/2009 3:22 PM Resul ts for this FIRE SPRINKLER DESIGNER procedure are i n the results section. documented in this encounter Results XR Chest 2 Views (02/20/2009 3:22 PM FIRE SPRINKLER DESIGNER) Anatomical Region Laterality Modality Chest, Lung Other Specimen (Source) Anatomical Location Collection Method / Collectio n Time Received Time / Laterality Volume Impressions 02/20/2009 3:22 PM FIRE SPRINKLER DESIGNER : ??Clear lungs, with resolution of previously noted patchy consolidation the left lower lobe. ??No edema, effusion or other significant acute process on these 2 vie ws of the chest. ??There is prominent degenerative spurring on the l eft at L2-L3. ??No other significant change from 01/16/2003. Dictating JASON BARTON Radiologist Procedure Note Jason Davalos MD - 08/31/2015Format ting of this note might be different from the original. IMPRESSION : Clear lungs, with resolution of previo usly noted patchy consolidation the left lower lobe. No ed ana, effusion or other significant acute process on these 2 vie ws of the chest. There is prominent degenerative spurring on the l eft at L2-L3. No other significant change from 01/16/2003. Dictating JASON BARTON Radiologist Qasim Jimenez PA-C RAD GD documented in this encounter Visit Diagnoses Not on filedocumented in this encounter Care Teams Federal Java Developer Relationship Specialty Start Date End Date Qasim Jimenez PA-C PCP - General 06/17/10 12/12/[address] [place] [address] documented as of this encounter
--- OUTSIDE RECORDS SUMMARY | 2022-02-26 10:52 | XMS_ITS | Encounter Summary ---
:1960 Author Organization [facility] Address [address] [address] Care Team Providers Name Role Phone Pauline Jimenez PA-C Primary Care Provider Encounter Details Date Type Department Care Team Description 09/13/2008 PN Conversion Only RELIGIOUS CONVERSION Ashley Jimenez PA-C [address] [place] [address] (Wo rk) Social History Tobacco Use Types Packs/Day Years Used Date Smoking Tobacco: Never Assessed Sex Assigned at Date Recorded Not on file documented as of this encounter Plan of Treatment Not on filedocumented as of this encounter Procedures Procedure Name Priority Date/Time Associated Diagnosis Comme nts GT (GAMMA GT) Routine 09/13/2008 8:32 AM Results for this CDT procedure are i n the results section. ALT (SGPT) Routine 09/13/2008 8:32 AM Results f or this CDT procedure are i n the results section. AST Routine 09/13/2008 8:32 AM Results f or this CDT procedure are i n the results section. BILIRUBIN, TOTAL Routine 09/13/2008 8:32 AM Resul ts for this CDT procedure are i n the results section. ALKALINE Routine 09/13/2008 8:32 AM Results f or this PHOSPHATASE, TOTAL CDT procedure are in the results section. documented in this encounter Results Alkaline Phosphatase, Total (09/13/2008 8:32 AM CDT) athologist Signature Alk Phos 63 25 - 135 U/L HP CONVERSION Specimen (Source) Anatomical Collection Method Collection Time Re ceived Time Location / / Volume Laterality 09/13/2008 8:32 AM CDT Pauline ANDREC LAB_1 Performing Organization Address [facility] [place] Phon e Number HP CONVERSION (ABNORMAL) ALT (SGPT) (09/13/2008 8:32 AM CDT) Patholo gist Method Time Signature Alanine 75 (H) 4 - 55 HP CONVERSION Aminotransferase U/L Specimen (Source) Anatomical Collection Method Collection Time Re ceived Time Location / / Volume Laterality 09/13/2008 8:32 AM CDT Pauline العراقي-C LAB_1 Performing Organization Address [facility] [place] Phon e Number HP CONVERSION (ABNORMAL) AST (09/13/2008 8:32 AM CDT) Patholo gist Method Time Signature Aspartate 60 (H) 0 - 45 HP CONVERSION Aminotransferase U/L Specimen (Source) Anatomical Collection Method Collection Time Re ceived Time Location / / Volume Laterality 09/13/2008 8:32 AM CDT Pauline العراقي-C LAB_1 Performing Organization Address [facility] [place] Phon e Number HP CONVERSION Bilirubin, Total (09/13/2008 8:32 AM CDT) P athologist Signature Bilirubin Total 0.5 0.2 - 1.2 HP CONVERSION mg/dL Specimen (Source) Anatomical Collection Method Collection Time Re ceived Time Location / / Volume Laterality 09/13/2008 8:32 AM CDT Pauline [facility]_1 Performing Organization Address [facility] Phon e Number HP CONVERSION (ABNORMAL) GT (Gamma GT) (09/13/2008 8:32 AM CDT) Analysis Performed At Patho logist Time Signature Gamma-Glutamyl 49 (H) 1 - 48 U/L HP CONVERSION Transferase Specimen (Source) Anatomical Collection Method Collection Time Re ceived Time Location / / Volume Laterality 09/13/2008 8:32 AM CDT Pauline العراقي-C LAB_1 Performing Organization Address [facility] Phon e Number HP CONVERSION documented in this encounter Visit Diagnoses Not on filedocumented in this encounter Care Teams Property Officer Relationship Specialty Start Date End Date Pauline Jimenez PA-C PCP - General 06/17/10 12/12/[address] [place] [address] documented as of this encounter
--- OUTSIDE RECORDS SUMMARY | 2022-02-26 10:52 | XMS_ITS | Encounter Summary ---
:1960 Author Organization [facility] Address [address], [place] [address] Care Team Providers Name Role Phone Pauline Jimenez PA-C Primary Care Provider Reason for Visit Reason Comments Other Encounter Details Date Type Department Care Team Description 02/17/2008 Telephone [facility], Message Other [address] [place], [place] [address] Social History Tobacco Use Types Packs/Day Years Used Date Smoking Tobacco: Never Assessed Sex Assigned at Date Recorded Not on file documented as of this encounter [facility], Message - 02/17/2008 2:50 PM CST Phone Note filed by Buzzwire at 07/05/10 1206 Author: Buzzwire Service: (none) Author Type: (none) Filed: 07/05/10 1207 Note Time: 02/17/08 1450 Status: Signed Hvac Installer: Buzzwire Prescription Refill Please provide enough refills to last until patient's next visit. Comment:- Pharmacy Seq #:-[phone] Pharmacy Name:-[facility] Pharmacy Street or City:[facility] Clinician Name:Maxx MAY Drug Name/Strength:-TRIAMTERENE /HCTZ 75/50 TAB Sig: Dose/Route/Freq:-TAKE ONE TAB EVERY DAY Quantity & Last Fill:-90 12/02/07 Created on [id number] 2:50pm by KATYA TORRES On [id number] 2:05pm MOHSEN SULTANA wrote: Renewed medication per medication refill protocol. E I PARAPROFESSIONAL documented in this encounter Plan of Treatment Not on filedocumented as of this encounter Visit Diagnoses Not on filedocumented in this encounter Care Teams Speech And Language Specialist Relationship Specialty Start Date End Date Pauline Jimenez PA-C PCP - General 06/17/10 12/12/[address] [place] [address] documented as of this encounter
--- OUTSIDE RECORDS SUMMARY | 2022-02-26 10:52 | XMS_ITS | Encounter Summary ---
:1960 Author Organization [facility] Address [address] [place] [address] Care Team Providers Name Role Phone Qasim Jimenez Faisal BAUM Primary Care Provider Encounter Details Date Type Department Care Team Description 02/12/2007 Office Visit [facility] 6[address] Jennifer Hdz MD Gastroenterology [address] [place] [address] [place] [address] [phone] Social History Tobacco Use Types Packs/Day Years Used Date Smoking Tobacco: Never Assessed Sex Assigned at Date Recorded Not on file documented as of this encounter Last Filed Vital Signs Vital Sign Reading Time Taken Comments Blood Pressure 100/60 02/12/2007 9:47 AM PLANT OPERATOR CONTROL ROOM OPERATOR Pulse - - Temperature - - Respiratory Rate - - Oxygen Saturation - - Inhaled Oxygen - - Concentration Weight 59 kg (129 lb 15.7 02/12/2007 9:47 AM C: 59.0kg Standing oz) PLANT OPERATOR CONTROL ROOM OPERATOR Height - - Body Mass Index 24.56 01/03/2006 2:43 PM CDT documented in this encounter Progress Notes Jennifer Hdz MD - 02/12/2007 12:01 AM CST Progress Notes signed by Jennifer Hdz MD at 02/13/07 1513 Author: Jennifer Hdz MD Service: (none) Author Type: Physician Filed: 07/06/10 2322 Note Time: 02/12/07 0001 Status: Signed Community Service Representative: Jennifer Hdz MD (Physician) NAME: WOO RAYA MR#: [id number] ACCT: [id number] VISIT: [id number] DICTATING CLINICIAN: Jennifer Hdz MD JOB: [id number] LOC: 3533 CLINIC PROGRESS NOTE DATE OF VISIT: 02/12/2007 SUBJECTIVE: Ms. Raya is here to discuss known hepatitis B. She is accompanied by her sister and by a game design instructor. They have known of her hepatitis B status since at least 1992 when she had her first child. She has had 2 children. It is unknown whether the children have hepatitis B. However, her sister and her mother both have hepatitis B, so the assumption is that this was perinatally acquired. There is no history of jaundice. She overall feels well and has a good appetite. She does have some issues with fluctuation of her bowel habits. PAST MEDICAL HISTORY: Hearing impairment, developmental delay, hypertension, depression, status post total abdominal hysterectomy, bilateral salpingo-oophorectomy, and abdominoplasty complicated by pulmonary embolism, status post tubal ligation. MEDICATIONS: Celexa, Zocor, atenolol, triamterene, hydrochlorothiazide, aspirin, lisinopril. ADR/ALLERGIES: NONE. SOCIAL HISTORY: She has been employed. She has the 2 children. Her sister is the legal guardian for the children, and she lives with her sister. She has only a few alcoholic beverages per year. FAMILY HISTORY: As noted in the history of present illness. REVIEW OF SYSTEMS: She denies any significant rashes. She has some occasional pruritus. Her bowel habits fluctuate from a few per day to up to 5 per day, and they vary in consistency from soft to hard. She does not have much in the way of abdominal discomfort. The remainder of her review of systems is negative. OBJECTIVE: VS: BP: 100/60. Wt: 130. She is in no distress. She has some mild microcephaly. EYES: No scleral icterus. SKIN: No spider angiomata. EXTREMITIES: No palmar erythema. ABDOMEN: Soft, flat, and nontender without hepatosplenomegaly or masses. There is no evidence of ascites. She has a healed periumbilical incision. There is no evidence of a cholecystectomy scar or laparoscopic incisions that would be consistent with a cholecystectomy. NEUROLOGICALLY: She is alert. She is deaf and communicates via the game design instructor. She has a normal gait. PSYCH: Her speech is consistent with being hearing impaired. Her answers are appropriate but she does not recall all of the details. A right upper quadrant ultrasound performed recently and in 2004 did not show evidence of a gallbladder. The liver had mild increase in echogenicity suggestive of fatty infiltration. She has had a normal recent CBC in 2005. In 02/2006 her alk. phos. was 96, ALT 61, total bilirubin 0.4. She has had mildly elevated transaminases in the past as high as 77. Hepatitis B surface antigen is positive. Hepatitis core antibody is positive. Hepatitis E antibody is positive. Hepatitis C antibody was negative. ASSESSMENT: Hepatitis B. 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 We discussed what this means in detail. Assuming that it is inactive she should simply be monitored with an ALT approximately every year. We also discussed the fact that it would be reasonable to ensure that her children have not acquired hepatitis B, and I discussed with the sister how to go about doing that. Her immunizations record indicates that she received 1 hepatitis A vaccine dose. I suggested that we measure her hepatitis A antibody to see if she is immune. PLAN: Alk. phos., ALT, total bilirubin, hepatitis A total antibody, hepatitis B viral DNA. We will communicate the results to them when they are available. CC: QASIM MAY PA-C AMK:[id number] C: 02/12/07 12:40 DOCUMENT: [id number] T OPERATOR CONTROL ROOM OPERATOR documented in this encounter Plan of Treatment Not on filedocumented as of this encounter Visit Diagnoses Not on filedocumented in this encounter Care Teams Speech Language Therapist Relationship Specialty Start Date End Date Qasim Jimenez PA-C PCP - General 06/17/10 12/12/14 [address] [place] [address] documented as of this encounter
--- OUTSIDE RECORDS SUMMARY | 2022-02-26 10:52 | XMS_ITS | Encounter Summary ---
:1960 Author Organization [facility] Address [address] [place] [address] Care Team Providers Name Role Phone Pauline Jimenez Faisal BAUM Primary Care Provider Encounter Details Date Type Department Care Team Description 06/12/2007 PN Conversion Only [facility] Fernandez Bryan, Alexander AU.DAngelica [address] [facility] [address] [place] [address] [place] [address] (Wo rk) Social History Tobacco Use Types Packs/Day Years Used Date Smoking Tobacco: Never Assessed Sex Assigned at Date Recorded Not on file documented as of this encounter Progress Notes Antonia Bryan AU.D. - 06/12/2007 12:01 AM CDT Progress Notes signed by TERRELL Brown at 06/15/07 1555 Author: TERRELL Brown Service: (none) Author Type: Tapping Machine Operator Automatic Filed: 07/07/10 0301 Note Time: 06/12/07 0001 Status: Signed Seo Marketing Specialist: TERRELL Brown (Tapping Machine Operator Automatic) NAME: WOO RAYA MR#: [id number] ACCT: [id number] VISIT: [id number] DICTATING CLINICIAN: Antonia Bryan CCCA JOB: [id number] LOC: 581 CLINIC PROGRESS NOTE DATE OF VISIT: 06/12/2007 SUBJECTIVE: Woo was seen today for a hearing evaluation and hearing aid check. She has binaural amplification and recently has had difficulty with the earmold tubing. She actually has not worn the left hearing aid for some time, as it has not been working well. Woo was accompanied today by her mother and a sign designer. OBJECTIVE: Pure tone thresholds reveal a severe to profound hearing loss bilaterally. Speech audiometry was not administered at this time. Otoscopy was unremarkable. ASSESSMENT: Compared to results from 10/2000, sensitivity is stable. PLAN: Following testing these results were discussed with Woo. I recommend an annual evaluation to monitor sensitivity and hearing aid functioning. The tubing on both ear molds was replaced; however, one earmold was cracked and the other mold is damaged. Therefore, ear mold impressions were taken to order new molds for Woo. She also has some type of dermatitis in the intratragal notch on the right ear. It is recommended she discuss this with her primary care provider. She may try some [id number] hydrocortisone or may further discuss this with Pauline West, Physician Dry Kiln Operator. Woo will return in 2 weeks for fitting of new ear molds. IMPRESSION: Stable severe to profound sensorineural hearing loss. Overall good benefit from amplification. [facility]:[id number] C: 06/12/07 18:27 DOCUMENT: [id number] documented in this encounter Plan of Treatment Not on filedocumented as of this encounter Visit Diagnoses Not on filedocumented in this encounter Care Teams Crossband Layer Relationship Specialty Start Date End Date Pauline Jimenez PA-C PCP - General 06/17/10 12/12/[address] [place] [address] documented as of this encounter
--- OUTSIDE RECORDS SUMMARY | 2022-02-26 10:52 | XMS_ITS | Encounter Summary ---
:1960 Author Organization [facility] Address [address], [place] [address] Care Team Providers Name Role Phone Pauline Jimenez PA-C Primary Care Provider Encounter Details Date Type Department Care Team Description 06/26/2007 PN Conversion Only [facility] [place] [address] [place] [address] [place] [address] [phone] (Wo rk) Social History Tobacco Use Types Packs/Day Years Used Date Smoking Tobacco: Never Assessed Sex Assigned at Date Recorded Not on file documented as of this encounter Plan of Treatment Not on filedocumented as of this encounter Visit Diagnoses Not on filedocumented in this encounter Care Teams Motor Vehicle Or Caravan Salesperson Relationship Specialty Start Date End Date Pauline Jimenez PA-C PCP - General 06/17/10 12/12/14 [address] [place] [address] documented as of this encounter
--- OUTSIDE RECORDS SUMMARY | 2022-02-26 10:52 | XMS_ITS | Encounter Summary ---
:1960 Author Organization [facility] Address [address] [place] [address] Care Team Providers Name Role Phone Barbara Pauline Malone PA-C Primary Care Provider Encounter Details Date Type Department Care Team Description 09/23/2008 PN Conversion Only [facility] [address] [place] [address] Social History Tobacco Use Types Packs/Day Years Used Date Smoking Tobacco: Never Assessed Sex Assigned at Date Recorded Not on file documented as of this encounter Plan of Treatment Not on filedocumented as of this encounter Procedures Procedure Name Priority Date/Time Associated Diagnosis Comme nts US ABD RUQ ORGANS Routine 09/23/2008 9:11 AM Resu lts for this CDT procedure are i n the results section. documented in this encounter Results US Abd RUQ Organs (09/23/2008 9:11 AM CDT) Anatomical Region Laterality Modality Abdomen Other Specimen (Source) Anatomical Location Collection Method / Collectio n Time Received Time / Laterality Volume Impressions 09/23/2008 9:11 AM CDT : ? 1. ?? Probable ?steatohepa tosis. ? 2. ?? Indeterminate ?findi ngs of cholelithiasis. Consider followup hepatobiliary scan if there is a clinical concern for cholecystitis. 126290/ddb Dictating GARO MIN Radiologist Narrative 09/23/2008 9:11 AM CDT HISTORY: ??Hepatitis B, abnormal LFTs. REPORT: ??Pancreas appears unremarkable. ??Liver has abnormal, diffusely increased, echotexture. ??A fo makayla mass is not identified. No intrahepatic duct dilation. ??No asci pancho. ??Gallbladder appears contracted. ??A wall echo shadow sign co nsistent with a stone is not excluded, though. ??The sonographic find ings are indeterminate. ??The gallbladder wall measures 3 mm, normal. ??The extrahepatic common duct measures 7 mm, slightly enlarged. ??Righ t kidney normal in size measuring 9.0 cm in length. Procedure Note Garo Jin MD - 05/18/2016For matting of this note might be different from the original. HISTORY: Hepatitis B, abnormal LFTs. REPORT: Pancreas appears unremarkable. L iver has abnormal, diffusely increased, echotexture. A foca l mass is not identified. No intrahepatic duct dilation. No ascite s. Gallbladder appears contracted. A wall echo shadow sign cons istent with a stone is not excluded, though. The sonographic findin gs are indeterminate. The gallbladder wall measures 3 mm, normal. The extrahepatic common duct measures 7 mm, slightly enlarged. Right kidney normal in size measuring 9.0 cm in length. IMPRESSION : 1. Probable steatohepatosis. 2. Indeterminate findings of cholelithi asis. Consider followup hepatobiliary scan if there is a clinical concern for cholecystitis. [id number]/ddb Dictating GARO MIN Radiologist Pauline Jimenez PA-C RAD US documented in this encounter Visit Diagnoses Not on filedocumented in this encounter Care Teams Disability Insurance Claim Examiner Relationship Specialty Start Date End Date Pauline Jimenez PA-C PCP - General 06/17/10 12/12/[address] [place] [address] documented as of this encounter
--- OUTSIDE RECORDS SUMMARY | 2022-02-26 10:52 | XMS_ITS | Encounter Summary ---
:1960 Author Organization [facility] Address [address] [address] Care Team Providers Name Role Phone Pauline Jimenez PA-C Primary Care Provider Encounter Details Date Type Department Care Team Description 05/29/2007 PN Conversion Only [facility] CONVERSION Ashley Jimenez PA-C [address] [place], [place] [address] (Wo rk) Social History Tobacco Use Types Packs/Day Years Used Date Smoking Tobacco: Never Assessed Sex Assigned at Date Recorded Not on file documented as of this encounter Plan of Treatment Not on filedocumented as of this encounter Procedures Procedure Name Priority Date/Time Associated Diagnosis Comme nts LIPID PANEL AND Routine 05/29/2007 8:35 AM Result s for this DIRECT LDL(IF CDT procedure are in NEEDED) the results section. GT (GAMMA GT) Routine 05/29/2007 8:35 AM Results for this CDT procedure are i n the results section. ALT (SGPT) Routine 05/29/2007 8:35 AM Results f or this CDT procedure are i n the results section. AST Routine 05/29/2007 8:35 AM Results f or this CDT procedure are i n the results section. BILIRUBIN, TOTAL Routine 05/29/2007 8:35 AM Resul ts for this CDT procedure are i n the results section. ALKALINE Routine 05/29/2007 8:35 AM Results f or this PHOSPHATASE, TOTAL CDT procedure are in the results section. documented in this encounter Results (ABNORMAL) ALT (SGPT) (05/29/2007 8:35 AM CDT) [facility] Method Time Signature Alanine 59 (H) 4 - 55 HP CONVERSION Aminotransferase U/L Specimen (Source) Anatomical Collection Method Collection Time Re ceived Time Location / / Volume Laterality 05/29/2007 8:35 AM CDT Pauline ANDREC LAB_1 Performing Organization Address City/State/ZIP Code Phon e Number HP CONVERSION AST (05/29/2007 8:35 AM CDT) [facility] Method Time Signature Aspartate 38 0 - 45 HP CONVERSION Aminotransferase U/L Specimen (Source) Anatomical Collection Method Collection Time Re ceived Time Location / / Volume Laterality 05/29/2007 8:35 AM CDT Pauline ANDREC LAB_1 Performing Organization Address City/[facility]/ZIP Code Phon e Number HP CONVERSION Lipid Panel and Direct LDL(If Needed) (05/29/2007 8:35 AM CDT) [facility] Method Time Signature Length Of Fast 12.0 Hours HP CONVERSION Cholesterol/HDL 4.3 No normal HP CONVERSION Ratio Screen range Cholesterol 188 <200 mg/dL HP CONVERSION HDL Cholesterol 44 >40 mg/dL HP CONVERSION Triglycerides 145 0 - 149 HP CONVERSION mg/dL LDL Calculated 115 0 - 130 HP CONVERSION mg/dL Comment: Specimen (Source) Anatomical Collection Method Collection Time Re ceived Time Location / / Volume Laterality 05/29/2007 8:35 AM CDT Pauline ANDREC LAB_1 Performing Organization Address City/State/ZIP Code Phon e Number HP CONVERSION Alkaline Phosphatase, Total (05/29/2007 8:35 AM CDT) P athologist Signature Alk Phos 79 25 - 135 U/L HP CONVERSION Specimen (Source) Anatomical Collection Method Collection Time Re ceived Time Location / / Volume Laterality 05/29/2007 8:35 AM CDT Pauline ANDREC LAB_1 Performing Organization Address City/State/ZIP Code Phon e Number HP CONVERSION Bilirubin, Total (05/29/2007 8:35 AM CDT) P athologist Signature Bilirubin Total 0.5 0.2 - 1.2 HP CONVERSION mg/dL Specimen (Source) Anatomical Collection Method Collection Time Re ceived Time Location / / Volume Laterality 05/29/2007 8:35 AM CDT Pauline Jimenez PA-C LAB_1 Performing Organization Address City/State/ZIP Code Phon e Number HP CONVERSION GT (Gamma GT) (05/29/2007 8:35 AM CDT) P athologist Signature Gamma-Glutamyl 42 1 - 48 U/L HP CONVERSION Transferase Specimen (Source) Anatomical Collection Method Collection Time Re ceived Time Location / / Volume Laterality 05/29/2007 8:35 AM CDT Pauline Faisal Barbara BAUM LAB_1 Performing Organization Address City/[facility]/ZIP Code Phon e Number HP CONVERSION documented in this encounter Visit Diagnoses Not on filedocumented in this encounter Care Teams Steel Roller Relationship Specialty Start Date End Date Pauline Jimenez PA-C PCP - General 06/17/10 12/12/14 [address] [place] [address] documented as of this encounter
--- OUTSIDE RECORDS SUMMARY | 2022-02-26 10:52 | XMS_ITS | Encounter Summary ---
:1960 Author Organization [facility] Address [address] [place] [address] Care Team Providers Name Role Phone Barbara Pauline Malone PA-C Primary Care Provider Encounter Details Date Type Department Care Team Description 01/29/2008 PN Conversion Only [facility] [address] [place] [address] Social History Tobacco Use Types Packs/Day Years Used Date Smoking Tobacco: Never Assessed Sex Assigned at Date Recorded Not on file documented as of this encounter Plan of Treatment Not on filedocumented as of this encounter Procedures Procedure Name Priority Date/Time Associated Diagnosis Comme nts MM MAMMOGRAM Routine 01/29/2008 1:05 PM Results f or this SCREENING BILAT W DRESSING ROOM PORTER procedure are in CAD the results section. documented in this encounter Results MM Mammogram Screening Bilat W CAD (01/29/2008 1:05 PM DRESSING ROOM PORTER) Anatomical Region Laterality Modality Breast Bilateral Mammography Specimen (Source) Anatomical Location Collection Method / Collectio n Time Received Time / Laterality Volume Impressions 02/02/2008 11:36 AM DRESSING ROOM PORTER : LEFT BREAST: Oval ??mass in the subareol ar region, unchanged. Benign, no evidence of malignancy. Normal interv al follow-up is recommended in 12 months. RIGHT BREAST: Negative, no evidence of m alignancy. Normal interval follow-up is recommended in 12 months. OVERALL ASSESSMENT - CATEGORY 2 - BENIGN END OF IMPRESSION Dictating WILFRID MACIAS RADIOLOGIST Narrative 02/02/2008 11:36 AM DRESSING ROOM PORTER Comparison is made to films from 12/27/2005 (bilateral) and films from 01/23/2007 (bilateral). ??There is no significant interval change. Left Breast Findings: There are scattered fibroglandular densi ties (11% - 50% fibroglandular). ??An oval mass with cir cumscribed margin is present in the subareolar region. Since the last study, no significant change has occurred. Right Breast Findings: There are scattered fibroglandular densi ties (11% - 50% fibroglandular). ??No significant masses , calcifications or other abnormalities are seen. Procedure Note Wilfrid Neumann - 05/18/2016Formattin g of this note might be different from the original. Comparison is made to films from 006 (bilateral) and films from 01/23/2007 (bilateral). There is no significant interval change. Left Breast Findings: There are scattered fibroglandular densi ties (11% - 50% fibroglandular). An oval mass with circu mscribed margin is present in the subareolar region. Since the last study, no significant change has occurred. Right Breast Findings: There are scattered fibroglandular densi ties (11% - 50% fibroglandular). No significant masses, calcifications or other abnormalities are seen. IMPRESSION : LEFT BREAST: Oval mass in the subareolar region, unchanged. Benign, no evidence of malignancy. Normal interv al follow-up is recommended in 12 months. RIGHT BREAST: Negative, no evidence of m alignancy. Normal interval follow-up is recommended in 12 months. OVERALL ASSESSMENT - CATEGORY 2 - BENIGN END OF IMPRESSION Dictating WILFRID MACIAS RADIOLOGIST Pauline Jimenez PA-C RAD SONYA documented in this encounter Visit Diagnoses Not on filedocumented in this encounter Care Teams Forestry Biology Specialist Relationship Specialty Start Date End Date Pauline Jimenez PA-C PCP - General 06/17/10 12/12/[address] [place] [address] documented as of this encounter
--- OUTSIDE RECORDS SUMMARY | 2022-02-26 10:52 | XMS_ITS | Encounter Summary ---
:1960 Author Organization [facility] Address [address] [place] [address] Care Team Providers Name Role Phone Pauline Jimenez PA-C Primary Care Provider Encounter Details Date Type Department Care Team Description 01/23/2007 PN Conversion Only [facility] [address] [place] [address] Social History Tobacco Use Types Packs/Day Years Used Date Smoking Tobacco: Never Assessed Sex Assigned at Date Recorded Not on file documented as of this encounter Plan of Treatment Not on filedocumented as of this encounter Procedures Procedure Name Priority Date/Time Associated Diagnosis Comme nts MM MAMMOGRAM Routine 01/23/2007 10:30 AM Results for this SCREENING BILAT W SUPERVISOR BUILDING MAINTENANCE procedure are in CAD the results section. documented in this encounter Results MM Mammogram Screening Bilat W CAD (01/23/2007 10:30 AM SUPERVISOR BUILDING MAINTENANCE) Anatomical Region Laterality Modality Breast Bilateral Mammography Specimen (Source) Anatomical Location Collection Method / Collectio n Time Received Time / Laterality Volume Impressions 01/26/2007 11:25 AM SUPERVISOR BUILDING MAINTENANCE : BILATERAL BREASTS - Category 1 Negative, no evidence of malignancy. Nor mal interval follow-up is recommended in 12 months. OVERALL ASSESSMENT - NEGATIVE END OF IMPRESSION Dictating WILFRID MACIAS RADIOLOGIST Narrative 01/26/2007 11:25 AM SUPERVISOR BUILDING MAINTENANCE Comparison is made to films from 12/07/2004 (bilateral). ??There is no significant interval change. Bilateral Breast Findings: There are scattered fibroglandular densi ties. ??No significant masses, calcifications or other abnormalities ar e seen. Procedure Note Wilfrid Neumann - 05/18/2016Formattin g of this note might be different from the original. Comparison is made to films from 005 (bilateral). There is no significant interval change. Bilateral Breast Findings: There are scattered fibroglandular densi ties. No significant masses, calcifications or other abnormalities ar e seen. IMPRESSION : BILATERAL BREASTS - Category 1 Negative, no evidence of malignancy. Nor mal interval follow-up is recommended in 12 months. OVERALL ASSESSMENT - NEGATIVE END OF IMPRESSION Dictating WILFRID MACIAS RADIOLOGIST Pauline Jimenez PA-C RAD SONYA documented in this encounter Visit Diagnoses Not on filedocumented in this encounter Care Teams Bleaching Machine Operator Relationship Specialty Start Date End Date Pauline Jimenez PA-C PCP - General 06/17/10 12/12/[address] [place] [address] documented as of this encounter
--- OUTSIDE RECORDS SUMMARY | 2022-02-26 10:52 | XMS_ITS | Encounter Summary ---
:1960 Author Organization [facility] Address [address] [place] [address] Care Team Providers Name Role Phone Pauline Jimenez PA-C Primary Care Provider Encounter Details Date Type Department Care Team Description 07/08/2008 Office Visit [facility] Pauline Mulligan PA-C [address] [facility] [address] [place] [address] [place] [address] [phone] (Wo rk) Social History Tobacco Use Types Packs/Day Years Used Date Smoking Tobacco: Never Assessed Sex Assigned at Date Recorded Not on file documented as of this encounter Last Filed Vital Signs Vital Sign Reading Time Taken Comments Blood Pressure 118/80 07/08/2008 9:32 AM CDT Pulse 64 07/08/2008 9:32 AM CDT Temperature - - Respiratory Rate - - Oxygen Saturation - - Inhaled Oxygen Concentration - - Weight 61 kg (134 lb 6.3 oz) 07/08/2008 9:32 AM CDT C: 61.0kg Height 155.6 cm (5' 1.25) 07/08/2008 9:32 AM CDT C: 15 5.6cm Body Mass Index 25.19 07/08/2008 9:32 AM CDT documented in this encounter Progress Notes Pauline Jimenez PA-C - 07/08/2008 12:01 AM CDT H&P signed by Pauline West PA-C at 07/08/08 1020 Author: Pauline West PA-C Service: (none) Author Type: Physician Reviewer Sales Filed: 07/07/10 1248 Note Time: 07/08/08 0001 Status: Signed Radar Scientist: Pauline West PA-C (Resource) Preventive Exam & Pelvic IMPRESSION: Routine preventive exam. Hypertension. Hyperlipidemia. SUBJECTIVE: 48 y/o patient presents for a routine preventive physical and pelvic exam. Patient has no symptomatic complaints or other concerns. Patient is not currently sexually active. Current contraception: See patient's surgical history. Past Medical History: Patient's active medical problems were reviewed and updated on the Health Profile screen of the Electronic Medical Record. Pap History: No history of abnormal Pap smears. Other Medical/Surgical History: Adverse Drug Reactions: Patient's [...] note dated 01/03/2006. Social History: Employment status: Not working. Marital Status: Single. Lives with her parents. Habits Tobacco: None. Alcohol: Less than once monthly. Drug: Denies any drug use. Preventive Health Assessment: Performs monthly breast self-exams. Calcium intake inadequate. Exercise inadequate. Lipid screen is needed. Uses seatbelts. Tetanus immunization is overdue. Review of Systems: With the exception of any items noted above, the remainder of complete ROS is negative. OBJECTIVE: Vital Signs: Vital Signs taken today were reviewed on the flowsheet in the Electronic Medical Record. General: Patient alert, in NAD. HEENT: PERRLA. Bilateral TM's, external 8canals, oropharynx normal. Neck: Supple, without thyromegaly or mass. Heart: RRR without murmurs, rubs or gallops. Resp: Clear to auscultation :without crackles, wheezes or distress. Upper Extremities: FROM with good ;strength, no lesions or deformities. Breasts: Nontender, without masses, <nipple discharge, erythema, or axillary adenopathy. Abdomen: Soft, non-tender, without hepatosplenomegaly, masses, or hernias. Consistent with >abdominoplasty. Pelvic: Deferred. Lymphatic: No neck, supraclavicular, ?axillary or groin lymphadenopathy. Lower Extremities: FROM, normal gait, @without lesions, edema or deformity. Pedal pulses intact. Skin: No Alesions on inspection. Neuro: CN II-XII, motor & sensory function all Bintact. Psychiatric: Alert & oriented with normal affect and insight, does not appear depressed or anxious. ASSESSMENT: Routine preventive exam. Hypertension. Hyperlipidemia. PLAN: Follow-up in 1 year. No Pap smear due to hysterectomy. Mammogram. Cholesterol (Lipid) panel. Fasting glucose. Hypertension labs. We will mail lab results to patient. If results not received in the next month, patient instructed to call. Prescriptions provided, see OP Med list on Health Profile in the Electronic Medical Record. Tdap vaccine given.Discussed with patient: Breast self-exam recommended. Recommended adequate calcium intake/osteoporosis prevention. Recommended a balanced nutritious diet. Benefits of regular exercise. *SH~PC~PEF ~Shorthand Note completed on: 07/08/2008 10:20 AM documented in this encounter Plan of Treatment Not on filedocumented as of this encounter Visit Diagnoses Not on filedocumented in this encounter Care Teams Head Of Partner Development Relationship Specialty Start Date End Date Pauline Jimenez PA-C PCP - General 06/17/10 12/12/[address] [place] [address] documented as of this encounter
--- OUTSIDE RECORDS SUMMARY | 2022-02-26 10:52 | XMS_ITS | Encounter Summary ---
:1960 Author Organization [facility] Address [address] [place] [address] Care Team Providers Name Role Phone Pauline Jimenez PA-C Primary Care Provider Encounter Details Date Type Department Care Team Description 01/29/2008 Nursing Visit [facility] Leodan Gonzales MD [facility] [id number] [place] [address] [place] [address] [place] [address] [phone] Social History Tobacco Use Types Packs/Day Years Used Date Smoking Tobacco: Never Assessed Sex Assigned at Date Recorded Not on file documented as of this encounter Plan of Treatment Not on filedocumented as of this encounter Visit Diagnoses Not on filedocumented in this encounter Care Teams Commercial Correspondent Relationship Specialty Start Date End Date Pauline Jimenez PA-C PCP - General 06/17/10 12/12/[address] [place] [address] documented as of this encounter
--- OUTSIDE RECORDS SUMMARY | 2022-02-26 10:52 | XMS_ITS | Encounter Summary ---
:1960 Author Organization [facility] Address [address] [place] [address] Care Team Providers Name Role Phone ShoaibPauline coates Faisal BAUM Primary Care Provider Encounter Details Date Type Department Care Team Description 05/05/2006 Hospital Encounter [facility] CONVERSION William Aly MD [address] [place] [address] Social History Tobacco Use Types Packs/Day Years Used Date Smoking Tobacco: Never Assessed Sex Assigned at Date Recorded Not on file documented as of this encounter Medications at Time of Discharge Medication Sig Dispensed Refills Start Date End Date aspirin 81 MG tablet Take 1 tablet by mouth 90 3 04/03/2007 daily (every 24 hours). ATENolol (AKA TENORMIN) Take 1 tablet by mouth 93 0 01/03/2006 04/07/2009 25 MG tablet daily as needed. LW Addl Instr:Indicated for: High Blood Pressure ATENolol (AKA TENORMIN) Take 1 tablet by mouth 30 12 05/14/2005 04/07/2009 25 MG tablet daily as needed. LW Addl Instr:Indicated for: High Blood Pressure ATENolol (AKA TENORMIN) Take 1 tablet by mouth 90 3 12/07/2004 04/07/2009 25 MG tablet daily (every 24 hours). LW Addl Instr:Indicated for: High Blood Pressure citalopram (AKA CELEXA) Take 1 tablet by mouth 30 0 01/23/2006 08/11/2009 40 MG tablet daily (every 24 hours). LW Addl Instr:Indicated for: Depression lisinopril (AKA Take 1 tablet by mouth 90 0 04/11/19 07 04/07/2009 ZESTRIL) 5 MG tablet daily (every 24 hours). LW Addl Instr:Indicated for: High Blood Pressure lisinopril (AKA Take 1 tablet by mouth 30 0 04/03/19 07 04/07/2009 ZESTRIL) 5 MG tablet daily (every 24 hours). LW Comment:Has 04/11/06 appt LW Addl Instr:Indicated for: High Blood Pressure lisinopril (AKA Take 1 tablet by mouth 30 0 03/14/20 06 04/07/2009 ZESTRIL) 5 MG tablet daily (every 24 hours). LW Comment:needs f/u appt for med LW Addl Instr:Indicated for: High Blood Pressure lisinopril (AKA Take 1 tablet by mouth 30 1 01/04/20 06 04/07/2009 ZESTRIL) 5 MG tablet daily (every 24 hours). LW Addl Instr:Indicated for: High Blood Pressure simvastatin (AKA ZOCOR) Take 1 tablet by mouth 93 0 01/03/2006 04/08/2007 10 MG tablet every evening. LW Addl Instr:Indicated for: High Cholesterol simvastatin (AKA ZOCOR) Take 1 tablet by mouth 30 0 03/20/2005 04/08/2007 10 MG tablet every evening. LW Addl Instr:Indicated for: High Cholesterol simvastatin (AKA ZOCOR) Take 1 tablet by mouth 90 3 02/04/2005 04/08/2007 10 MG tablet every evening. LW Addl Instr:Indicated for: High Cholesterol simvastatin (AKA ZOCOR) Take 1 tablet by mouth 93 0 02/04/2005 04/08/2007 10 MG tablet every evening. LW Addl Instr:Indicated for: High Cholesterol Triamterene-HCTZ Take 1 tablet by mouth 93 0 006 04/07/2009 (TRIAMTERENE-HYDROCHLOR daily (every 24 OTHIAZIDE) 50-25 MG hours). LW Addl capsule Instr:Indicated for: High Blood Pressure Triamterene-HCTZ Take 1 tablet by mouth 30 0 12/18/ 006 04/07/2009 (TRIAMTERENE-HYDROCHLOR daily (every 24 OTHIAZIDE) 50-25 MG hours). LW Addl capsule Instr:Indicated for: High Blood Pressure Triamterene-HCTZ Take 1 tablet by mouth 30 0 006 04/07/2009 (TRIAMTERENE-HYDROCHLOR daily (every 24 OTHIAZIDE) 50-25 MG hours). LW capsule Comment:needs appt b/4 next refill LW Addl Instr:Indicated for: High Blood Pressure Triamterene-HCTZ Take 1 tablet by mouth 93 3 005 04/07/2009 (TRIAMTERENE-HYDROCHLOR daily (every 24 OTHIAZIDE) 50-25 MG hours). LW Addl capsule Instr:Indicated for: High Blood Pressure Triamterene-HCTZ Take 1 tablet by mouth 30 12 004 04/07/2009 (TRIAMTERENE-HYDROCHLOR daily (every 24 OTHIAZIDE) 50-25 MG hours). LW Addl capsule Instr:Indicated for: High Blood Pressure UNKNOWN MEDICATION Indications: PN: 0 04/11/2006 08/11/2009 UNKNOWN MEDICATION Indications: PN: 0 01/03/2006 08/11/2009 UNKNOWN MEDICATION Indications: PN: 0 02/04/2005 08/11/2009 UNKNOWN MEDICATION Indications: PN: 0 12/07/2004 08/11/2009 UNKNOWN MEDICATION Indications: PN: 0 10/21/2003 08/11/2009 UNKNOWN MEDICATION Indications: PN: 0 08/12/2003 08/11/2009 documented as of this encounter Plan of Treatment Not on filedocumented as of this encounter Procedures Procedure Name Priority Date/Time Associated Diagnosis Comme nts US VENOUS RIGHT Routine 05/05/2006 4:20 PM Result s for this LOWER EXTREM OYSTERMAN procedure are i n DOPPLER the results section. documented in this encounter Results US VENOUS RIGHT LOWER EXTREM DOPPLER (05/05/2006 4:20 PM OYSTERMAN) Anatomical Region Laterality Modality Vascular, Leg Other Specimen (Source) Anatomical Location Collection Method / Collectio n Time Received Time / Laterality Volume Narrative 05/05/2006 4:20 PM OYSTERMAN The right the common femoral vein shows normal compressibility, color, and phasic flow. ??The proximal s aphenous vein appears normal. The superficial femoral vein appears nor mal throughout its course. The popliteal vein has normal compressib ility, color and phasic flow. Below the knee the anterior tibial veins , posterior tibial veins and peroneal veins are all at least partiall y seen and appear to compress normally. CONCLUSION: Normal right lower extremity venous duplex ultrasound. This technique cannot rule out small ves char thrombosis below the knee. Dictating MARIA DE JESUS GABRIEL MD Procedure Note Maria De Jesus Fowler - 05/18/2016 The right the common femoral vein shows normal compressibility, color, and phasic flow. The proximal sap henous vein appears normal. The superficial femoral vein appears nor mal throughout its course. The popliteal vein has normal compressib ility, color and phasic flow. Below the knee the anterior tibial veins , posterior tibial veins and peroneal veins are all at least partiall y seen and appear to compress normally. CONCLUSION: Normal right lower extremity venous duplex ultrasound. This technique cannot rule out small ves char thrombosis below the knee. Dictating MARIA DE JESUS GABRIEL MD Samir Aly MD [facility] documented in this encounter Visit Diagnoses Not on filedocumented in this encounter Care Teams Shot Dropper Relationship Specialty Start Date End Date Pauline Jimenez PA-C PCP - General 10/19/03 06/16/[address] [place] [address] documented as of this encounter
--- OUTSIDE RECORDS SUMMARY | 2022-02-26 10:52 | XMS_ITS | Encounter Summary ---
:1960 Author Organization [facility] Address [address], [place] [address] Care Team Providers Name Role Phone Barbara Pauline Malone PA-C Primary Care Provider Reason for Visit Reason Comments Other Encounter Details Date Type Department Care Team Description 11/18/2007 Telephone [facility], Message Other [address] [place], [place] [address] Social History Tobacco Use Types Packs/Day Years Used Date Smoking Tobacco: Never Assessed Sex Assigned at Date Recorded Not on file documented as of this encounter [facility], Message - 11/18/2007 9:16 AM CDT Phone Note filed by [facility] at 07/05/10 0509 Author: [facility] Service: (none) Author Type: (none) Filed: 07/05/10 0501 Note Time: 11/18/07915 Status: Signed Field Scout: [facility] Prescription Refill Please provide enough refills to last until patient's next visit. Comment:- Pharmacy Seq #:-[phone] Pharmacy Name:-[facility] Street or City:-[place] Clinician Name:-[facility] Name/Strength:-Zocor 20mg tabs. Sig: Dose/Route/Freq:-Take 1 tab daily in the evening. Quantity & Last Fill:-30 06/30/07 Created on [id number] 9:16am by LISA AGUILAR J On [id number] 0:14am MOHSEN SULTANA wrote: Renewed medication per medication refill protocol. 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
--- OUTSIDE RECORDS SUMMARY | 2022-02-26 10:52 | XMS_ITS | Encounter Summary ---
:1960 Author Organization [facility] Address [address] [address] Care Team Providers Name Role Phone Pauline Jimenez PA-C Primary Care Provider Encounter Details Date Type Department Care Team Description 07/30/2008 PN Conversion Only HOLINESS CONVERSION Ashley Jimenez PA-C [address] [place], [place] [address] (Wo rk) Social History Tobacco Use Types Packs/Day Years Used Date Smoking Tobacco: Never Assessed Sex Assigned at Date Recorded Not on file documented as of this encounter Plan of Treatment Not on filedocumented as of this encounter Procedures Procedure Name Priority Date/Time Associated Diagnosis Comme nts HEP B SURFACE Routine 07/30/2008 10:18 AM Results for this ANTIGEN CONFIRM CDT procedure ar e in the results section. GLUCOSE Routine 07/30/2008 10:18 AM Results for this CDT procedure are i n the results section. HEPATITIS A IGM Routine 07/30/2008 10:18 AM Resul ts for this ANTIBODY CDT procedure are i n the results section. HEPATITIS B SURFACE Routine 07/30/2008 10:18 AM R esults for this ANTIBODY CDT procedure are i n the results section. HEP B SURFACE Routine 07/30/2008 10:18 AM Results for this ANTIGEN, NO REFLEX CDT procedure are in the results section. HEPATITIS C Routine 07/30/2008 10:18 AM Results for this ANTIBODY, WITH CDT procedure are in REFLEX the results section. GT (GAMMA GT) Routine 07/30/2008 10:18 AM Results for this CDT procedure are i n the results section. ALT (SGPT) Routine 07/30/2008 10:18 AM Results for this CDT procedure are i n the results section. AST Routine 07/30/2008 10:18 AM Results for this CDT procedure are i n the results section. BILIRUBIN, TOTAL Routine 07/30/2008 10:18 AM Resu lts for this CDT procedure are i n the results section. BILI - DIRECT Routine 07/30/2008 10:18 AM Results for this CDT procedure are i n the results section. ALKALINE Routine 07/30/2008 10:18 AM Results for this PHOSPHATASE, TOTAL CDT procedure are in the results section. documented in this encounter Results Alkaline Phosphatase, Total (07/30/2008 10:18 AM CDT) athologist Signature Alk Phos 70 25 - 135 U/L HP CONVERSION Specimen (Source) Anatomical Collection Method Collection Time Re ceived Time Location / / Volume Laterality 07/30/2008 10:18 AM CDT Pauline العراقي-C LAB_1 Performing Organization Address [facility] Phon e Number HP CONVERSION (ABNORMAL) ALT (SGPT) (07/30/2008 10:18 AM CDT) Patholo gist Method Time Signature Alanine 86 (H) 4 - 55 HP CONVERSION Aminotransferase U/L Specimen (Source) Anatomical Collection Method Collection Time Re ceived Time Location / / Volume Laterality 07/30/2008 10:18 AM CDT Pauline العراقي-C LAB_1 Performing Organization Address [facility] Phon e Number HP CONVERSION (ABNORMAL) AST (07/30/2008 10:18 AM CDT) [facility] Method Time Signature Aspartate 61 (H) 0 - 45 HP CONVERSION Aminotransferase U/L Specimen (Source) Anatomical Collection Method Collection Time Re ceived Time Location / / Volume Laterality 07/30/2008 10:18 AM CDT Pauline العراقي-C LAB_1 Performing Organization Address [facility] Phon e Number HP CONVERSION Bilirubin, Direct (07/30/2008 10:18 AM CDT) P athologist Signature Bilirubin, 0.1 0.0 - 0.4 HP CONVERSION Direct mg/dL Specimen (Source) Anatomical Collection Method Collection Time Re ceived Time Location / / Volume Laterality 07/30/2008 10:18 AM CDT Pauline ANDREC LAB_1 Performing Organization Address City/[facility]/ZIP Code Phon e Number HP CONVERSION Bilirubin, Total (07/30/2008 10:18 AM CDT) P athologist Signature Bilirubin Total 0.5 0.2 - 1.2 HP CONVERSION mg/dL Specimen (Source) Anatomical Collection Method Collection Time Re ceived Time Location / / Volume Laterality 07/30/2008 10:18 AM CDT Pauline العراقي-C LAB_1 Performing Organization Address City/[facility]/ZIP Code Phon e Number HP CONVERSION (ABNORMAL) GT (Gamma GT) (07/30/2008 10:18 AM CDT) Analysis Performed At Patho logist Time Signature Gamma-Glutamyl 55 (H) 1 - 48 U/L HP CONVERSION Transferase Specimen (Source) Anatomical Collection Method Collection Time Re ceived Time Location / / Volume Laterality 07/30/2008 10:18 AM CDT Pauline العراقي-C LAB_1 Performing Organization Address [facility] Code Phon e Number HP CONVERSION (ABNORMAL) Glucose (07/30/2008 10:18 AM CDT) P athologist Signature Length Of Fast 12.0 Hours HP CONVERSION Lab Glucose 121 (H) 60 - 100 HP CONVERSION mg/dL Specimen (Source) Anatomical Collection Method Collection Time Re ceived Time Location / / Volume Laterality 07/30/2008 10:18 AM CDT Pauline ANDREC LAB_1 Performing Organization Address City/[facility] Code Phon e Number HP CONVERSION Hepatitis A Igm Antibody (07/30/2008 10:18 AM CDT) Analysis Performed At Patho logist Time Signature Hepatitis A Negative Negative HP CONVERSION IgM Antibody Comment: Performed at [facility] [address] [place] [address], [place] [address] Specimen (Source) Anatomical Collection Method Collection Time Re ceived Time Location / / Volume Laterality 07/30/2008 10:18 AM CDT Pauline العراقي-C LAB_1 Performing Organization Address City/[facility]/ZIP Code Phon e Number HP CONVERSION Hepatitis B Surface Antibody (07/30/2008 10:18 AM CDT) Analysis Performed At [facility] Signature Hep B Surf Ab Non Reac Non Reac HP CONVERSION Specimen (Source) Anatomical Collection Method Collection Time Re ceived Time Location / / Volume Laterality 07/30/2008 10:18 AM CDT Pauline ANDREC LAB_1 Performing Organization Address City/[facility]/ZIP Code Phon e Number HP CONVERSION Hep B Surface Antigen, No Reflex (07/30/2008 10:18 AM CDT) Analysis Performed At [facility] Signature Hep B Surf Ag Sent Ref Negative HP CONVERSION Comment: Sent to reference lab for confi rmation. Specimen (Source) Anatomical Collection Method Collection Time Re ceived Time Location / / Volume Laterality 07/30/2008 10:18 AM CDT Pauline ANDREC LAB_1 Performing Organization Address City/[facility]/ZIP Code Phon e Number HP CONVERSION Hepatitis C Antibody, with Reflex (07/30/2008 10:18 AM CDT) Analysis Performed At [facility] Signature Hepatitis C Non Reac Non Reac HP CONVERSION Antibody Specimen (Source) Anatomical Collection Method Collection Time Re ceived Time Location / / Volume Laterality 07/30/2008 10:18 AM CDT Pauline ANDREC LAB_1 Performing Organization Address City/[facility]/ZIP Code Phon e Number HP CONVERSION (ABNORMAL) Hep B Surface Antigen Confirm (07/30/2008 10:18 AM CDT) [facility] Time Signature Hepatitis B Positive (A) No normal HP CONVERSION Surface Antigen range Confirmation Comment: Hepatitis B surface antigen (HBsAg) did neutralize using anti-HBs. This specimen is therefore POS ITIVE for HBsAg. False positives can occur. ??If the resu lt is not supported by clinical evidence, repeat testing of a new sample usually helps clarify the diagnosis. TEST INFORMATION: Hepatitis B Surface Ag Confirmation [facility] intends use of this assay for clini makayla diagnosis. This assay should not be used for blood donor screening, associated re-ent ry protocols, or for screening Human Cells, Tissues and Cellular and Tissue-Based Products ( HCT/P). Performed at [facility] [address], [place] [address] Specimen (Source) Anatomical Collection Method Collection Time Re ceived Time Location / / Volume Laterality 07/30/2008 10:18 AM CDT Pauline Jimenez PA-C LAB_1 Performing Organization Address City/State/ZIP Code Phon e Number HP CONVERSION documented in this encounter Visit Diagnoses Not on filedocumented in this encounter Care Teams Social Sciences Department Chair Relationship Specialty Start Date End Date Pauline Jimenez PA-C PCP - General 06/17/10 12/12/[address] [place] [address] documented as of this encounter
--- OUTSIDE RECORDS SUMMARY | 2022-02-26 10:52 | XMS_ITS | Encounter Summary ---
:1960 Author Organization [facility] Address [address] [address] Care Team Providers Name Role Phone Pauline Jimenez PA-C Primary Care Provider Encounter Details Date Type Department Care Team Description 02/20/2009 PN Conversion Only JEWISH CONVERSION Ashley Jimenez PA-C [address] [place] [address] (Wo rk) Social History Tobacco Use Types Packs/Day Years Used Date Smoking Tobacco: Never Assessed Sex Assigned at Date Recorded Not on file documented as of this encounter Plan of Treatment Not on filedocumented as of this encounter Procedures Procedure Name Priority Date/Time Associated Comments Diagnosis GLUCOSE Routine 02/20/2009 2:50 PM Results f or this DIGITAL PHOTOGRAPHIC PRINTER procedure are i n the results section. THYROID STIMULATING Routine 02/20/2009 2:50 PM Re sults for this HORMONE DIGITAL PHOTOGRAPHIC PRINTER procedure are i n the results section. CREATININE / GFR Routine 02/20/2009 2:50 PM Resul ts for this DIGITAL PHOTOGRAPHIC PRINTER procedure are i n the results section. COMPLETE BLOOD Routine 02/20/2009 2:50 PM Results for this COUNT-W/DIFF DIGITAL PHOTOGRAPHIC PRINTER procedure are i n the results section. ELECTROLYTE PANEL Routine 02/20/2009 2:50 PM Resu lts for this DIGITAL PHOTOGRAPHIC PRINTER procedure are i n the results section. documented in this encounter Results THYROID STIMULATING HORMONE (02/20/2009 2:50 PM DIGITAL PHOTOGRAPHIC PRINTER) P athologist Signature Thyroid 2.75 0.20 - HP CONVERSION Stimulating 4.50 Hormone uIU/mL Specimen (Source) Anatomical Collection Method Collection Time Re ceived Time Location / / Volume Laterality 02/20/2009 2:50 PM DIGITAL PHOTOGRAPHIC PRINTER Pauline العراقي-C LAB_1 Performing Organization Address City/State/ZIP Code Phon e Number HP CONVERSION Electrolyte Panel (02/20/2009 2:50 PM DIGITAL PHOTOGRAPHIC PRINTER) athologist Signature Sodium 142 137 - 147 HP CONVERSION mEq/L Potassium 3.8 3.5 - 5.2 HP CONVERSION mEq/L Chloride 104 98 - 110 HP CONVERSION mEq/L Bicarbonate 31 23 - 33 HP CONVERSION mmol/L Specimen (Source) Anatomical Collection Method Collection Time Re ceived Time Location / / Volume Laterality 02/20/2009 2:50 PM DIGITAL PHOTOGRAPHIC PRINTER Pauline العراقي-C LAB_1 Performing Organization Address [facility] Code Phon e Number HP CONVERSION GLUCOSE (02/20/2009 2:50 PM DIGITAL PHOTOGRAPHIC PRINTER) athologist Signature Lab Glucose 92 60 - 100 HP CONVERSION mg/dL Specimen (Source) Anatomical Collection Method Collection Time Re ceived Time Location / / Volume Laterality 02/20/2009 2:50 PM DIGITAL PHOTOGRAPHIC PRINTER Pauline العراقي-C LAB_1 Performing Organization Address [facility] Code Phon e Number HP CONVERSION (ABNORMAL) Creatinine / GFR (02/20/2009 2:50 PM DIGITAL PHOTOGRAPHIC PRINTER) athologist Signature Creatinine 1.0 0.4 - 1.3 HP CONVERSION Serum mg/dL Est GFR >60 >60 HP CONVERSION Am Comment: -[place]jib[place]ian and Yoz-Tbzmhzw-Pwyfhjx n reference range units: mL/min/1.73m2 Normal>60, moderate decrease 30 - 59, se liz decrease 15 - 29, renal failure <15 mL/min/1.73 m2 NOTE: Choose the eGFR result above appro priate for the race of the patient. Est GFR Non-Afr Am 59 (L) >60 HP CONVERSI ON Specimen (Source) Anatomical Collection Method Collection Time Re ceived Time Location / / Volume Laterality 02/20/2009 2:50 PM DIGITAL PHOTOGRAPHIC PRINTER Pauline العراقي-C LAB_1 Performing Organization Address City/[facility]/ZIP Code Phon e Number HP CONVERSION (ABNORMAL) Hemogram/Plts/Diff (02/20/2009 2:50 PM DIGITAL PHOTOGRAPHIC PRINTER) [facility] gist Method Time Signature White Blood Cell 8.9 3.8 - 11.0 HP CONVERSIO N Count k/cmm Red Blood Cell 4.40 3.70 - HP CONVERSION Count 5.20 m/cmm Hemoglobin 13.4 11.8 - HP CONVERSION 15.5 gm/dL Hematocrit 38.9 35.0 - HP CONVERSION 46.0 % Mean Corpuscular 88.4 80.0 - HP CONVERSION Volume 100.0 fl Mean Corpuscular 30.4 27.0 - HP CONVERSION Hemoglobin 34.0 pg Mean Corpuscular 34.4 32.0 - HP CONVERSION Hemoglobin Conc 36.5 gm/dL Dukes RDW 13.2 11.0 - HP CONVERSION 15.0 % Platelet Count 261 140 - 450 HP CONVERSION k/cmm Differential Auto-Dif No normal HP CONVERSION Verify range Neutrophils 4.3 2.0 - 7.5 HP CONVERSION Absolute Count k/cmm Neutrophil 48.3 (L) 50.0 - HP CONVERSION 75.0 % Lymphocyte % 40.4 (H) 20.0 - HP CONVERSION 40.0 % Monocyte 7.4 5.0 - 14.0 HP CONVERSION % Eosinophil 3.5 0.0 - 6.0 HP CONVERSION % Basophil % 0.4 0.0 - 2.0 HP CONVERSION % Specimen (Source) Anatomical Collection Method Collection Time Re ceived Time Location / / Volume Laterality 02/20/2009 2:50 PM DIGITAL PHOTOGRAPHIC PRINTER Pauline Jimenez PA-C LAB_1 Performing Organization Address City/State/ZIP Code Phon e Number HP CONVERSION documented in this encounter Visit Diagnoses Not on filedocumented in this encounter Care Teams Ekg Manager Relationship Specialty Start Date End Date Pauline Jimenez PA-C PCP - General 06/17/10 12/12/[address] [place] [address] documented as of this encounter
--- OUTSIDE RECORDS SUMMARY | 2022-02-26 10:52 | XMS_ITS | Encounter Summary ---
:1960 Author Organization [facility] Address [address] [place] [address] Care Team Providers Name Role Phone Barbara Pauline Malone PA-C Primary Care Provider Reason for Visit Reason Comments Other Encounter Details Date Type Department Care Team Description 03/09/2007 Telephone [facility], Message Other [address] [place], [place] [address] Social History Tobacco Use Types Packs/Day Years Used Date Smoking Tobacco: Never Assessed Sex Assigned at Date Recorded Not on file documented as of this encounter [facility], Message - 03/09/2007 10:45 AM CST Phone Note filed by [employer] at 07/04/10 1121 Author: [employer] Service: (none) Author Type: (none) Filed: 07/04/10 1121 Note Time: 03/09/07 1045 Status: Signed Professor Of Religion: Message [employer] Medication Issue/Refill Caller Name/Relationship:Natalie/sister Primary Student Activities Director:Jenna Comment/Symptom:needs refill Pharmacy Name & Phone #:[facility] Street or City:[place] Drug Name:[facility] Strength: Dose/Route/Freq: Farmworker Bulbs:Natalie Best call back number:[phone] Is it OK to leave a confidential message on this voicemail?y Created on 09Mar2007 10:45am by AWILDA SALDANA M On 09Mar2007 11:41am KATYA TORRES wrote: Sequence # [id number] Acknowledged by KATYA TORRES on 11:41am On 11Mar2007 10:33am JARED DALLAS wrote: REFILL APPOINTMENT NEEDED Please call patient and schedule appointment within 30 days. Medication has been renewed and faxed to pharmacy for 30 day supply only, per protocol. Comment:-needs well and labs On 11Mar2007 1:04pm PEACE RODRIGUEZ wrote: No further refills before she is seen. Acknowledged by PEACE RODRIGUEZ on 1:04pm On 11Mar2007 1:16pm LIDIA ROSARIO wrote: The above message left for the pt. Acknowledged by LIDIA ROSARIO on 1:16pm ITECTURAL INSPECTOR documented in this encounter Plan of Treatment Not on filedocumented as of this encounter Visit Diagnoses Not on filedocumented in this encounter Care Teams Professor Of Geography Relationship Specialty Start Date End Date Pauline Jimenez PA-C PCP - General 06/17/10 12/12/14 [address] [place] [address] documented as of this encounter
--- OUTSIDE RECORDS SUMMARY | 2022-02-26 10:52 | XMS_ITS | Encounter Summary ---
:1960 Author Organization [facility] Address [address] [place] [address] Care Team Providers Name Role Phone Barbara Pauline Malone PA-C Primary Care Provider Encounter Details Date Type Department Care Team Description 04/25/2006 PN Conversion Only [facility] [address] [place] [address] Social History Tobacco Use Types Packs/Day Years Used Date Smoking Tobacco: Never Assessed Sex Assigned at Date Recorded Not on file documented as of this encounter Plan of Treatment Not on filedocumented as of this encounter Procedures Procedure Name Priority Date/Time Associated Diagnosis Comme nts US ABD RUQ ORGANS Routine 04/25/2006 9:10 AM Resu lts for this PARTNERSHIP DEVELOPMENT MANAGER procedure are i n the results section. documented in this encounter Results US Abd RUQ Organs (04/25/2006 9:10 AM PARTNERSHIP DEVELOPMENT MANAGER) Anatomical Region Laterality Modality Abdomen Other Specimen (Source) Anatomical Location Collection Method / Collectio n Time Received Time / Laterality Volume Impressions 04/25/2006 9:10 AM PARTNERSHIP DEVELOPMENT MANAGER : ??Status post cholecystectomy. ??Mild fatty infiltration of the liver. ??Otherwise negative study. [id number] Dictating BOB BRITO Radiologist Narrative 04/25/2006 9:10 AM PARTNERSHIP DEVELOPMENT MANAGER COMPARISON: ??03/01/2005. CLINICAL HISTORY: ??46-year-old female h epatitis B carrier. ??The patient is status post cholecystectomy. FINDINGS: ??The liver is mildly increase d in echogenicity suggesting fatty infiltration. ??There are no focal masses or intrahepatic biliary dilatation. ??The gallbladder is surgically absent. ??The common bile duct measures in the normal range. The right kidney measures 9.0 x 3.3 x 4. 5 cm and there is no hydronephrosis. ??Visualized portions of the pancreas are unremarkable. ??There is no ascites in t he right upper quadrant of the abdomen and portal vein flow is in the p jerardo direction towards the liver. Procedure Note Bob Fonseca MD - 05/18/2016Formattin g of this note might be different from the original. COMPARISON: 03/01/2005. CLINICAL HISTORY: 46-year-old female hep atitis B carrier. The patient is status post cholecystectomy. FINDINGS: The liver is mildly increased in echogenicity suggesting fatty infiltration. There are no focal m asses or intrahepatic biliary dilatation. The gallbladder is s urgically absent. The common bile duct measures in the normal range. The right kidney measures 9.0 x 3.3 x 4. 5 cm and there is no hydronephrosis. Visualized portions of t he pancreas are unremarkable. There is no ascites in the right upper quadrant of the abdomen and portal vein flow is in the p jerardo direction towards the liver. IMPRESSION : Status post cholecystectomy. Mild fatt y infiltration of the liver. Otherwise negative study. [id number] Dictating BOB BRITO Radiologist Pauline Jimenez PA-C RAD US documented in this encounter Visit Diagnoses Not on filedocumented in this encounter Care Teams Bit Sharpener Relationship Specialty Start Date End Date Pauline Jimenez PA-C PCP - General 06/17/10 12/12/[address] [place] [address] documented as of this encounter
--- OUTSIDE RECORDS SUMMARY | 2022-02-26 10:52 | XMS_ITS | Encounter Summary ---
:1960 Author Organization [facility] Address [address] [address] Care Team Providers Name Role Phone Pauline Jimenez PA-C Primary Care Provider Encounter Details Date Type Department Care Team Description 08/03/2007 PN Conversion Only [facility] [place] [address] [place] [address] [place] [address] [phone] (Wo rk) Social History Tobacco Use Types Packs/Day Years Used Date Smoking Tobacco: Never Assessed Sex Assigned at Date Recorded Not on file documented as of this encounter Plan of Treatment Not on filedocumented as of this encounter Visit Diagnoses Not on filedocumented in this encounter Care Teams Getter Welder Relationship Specialty Start Date End Date Pauline Jimenez PA-C PCP - General 06/17/10 12/12/14 [address] [place] [address] documented as of this encounter
--- OUTSIDE RECORDS SUMMARY | 2022-02-26 10:52 | XMS_ITS | Encounter Summary ---
:1960 Author Organization [email or web address] Address [address] [address] Care Team Providers Name Role Phone Pauline Jimenez PA-C Primary Care Provider Encounter Details Date Type Department Care Team Description 02/03/2009 PN Conversion Only [facility] [address] [place] [address] Social History Tobacco Use Types Packs/Day Years Used Date Smoking Tobacco: Never Assessed Sex Assigned at Date Recorded Not on file documented as of this encounter Plan of Treatment Not on filedocumented as of this encounter Procedures Procedure Name Priority Date/Time Associated Diagnosis Comme nts MM MAMMOGRAM Routine 02/03/2009 9:49 AM Results f or this SCREENING BILAT W ACETYLENE TORCH BURNER procedure are in CAD the results section. documented in this encounter Results MM Mammogram Screening Bilat W CAD (02/03/2009 9:49 AM ACETYLENE TORCH BURNER) Anatomical Region Laterality Modality Breast Bilateral Mammography Specimen (Source) Anatomical Location Collection Method / Collectio n Time Received Time / Laterality Volume Narrative 02/07/2009 3:18 PM ACETYLENE TORCH BURNER Comparison is made to films from 01/23/2007 (bilateral) and films from 01/29/2008 (bilateral). There is no significant interval change. Left Breast Findings: There are scattered fibroglandular densi ties (11% - 50% fibroglandular). An area of focal asymme try is present at 6 o'clock anteriorly. Since 2006, no significant c hange has occurred. Right Breast Findings: There are scattered fibroglandular densi ties (11% - 50% fibroglandular). An area of focal asymme try is present at 3 o'clock anteriorly. Since 2006, no significant c hange has occurred. IMPRESSION: LEFT BREAST: Focal asymmetry at 6 o'cloc k anteriorly, unchanged. Benign, no evidence of malignancy. Jeny l interval follow-up is recommended in 12 months. RIGHT BREAST: Focal asymmetry at 3 o'jessica ck anteriorly, unchanged. Benign, no evidence of malignancy. Jeny l interval follow-up is recommended in 12 months. OVERALL ASSESSMENT - CATEGORY 2 - BENIGN END OF IMPRESSION SB Dictating SHIMON GORDON Radiologist Procedure Note Shimon Reed - 11/07/2015Formatti ng of this note might be different from the original. Comparison is made to films from 007 (bilateral) and films from 01/29/2008 (bilateral). There is no significant interval change. Left Breast Findings: There are scattered fibroglandular densi ties (11% - 50% fibroglandular). An area of focal asymme try is present at 6 o'clock anteriorly. Since 2006, no significant c hange has occurred. Right Breast Findings: There are scattered fibroglandular densi ties (11% - 50% fibroglandular). An area of focal asymme try is present at 3 o'clock anteriorly. Since 2006, no significant c hange has occurred. IMPRESSION: LEFT BREAST: Focal asymmetry at 6 o'cloc k anteriorly, unchanged. Benign, no evidence of malignancy. Jeny l interval follow-up is recommended in 12 months. RIGHT BREAST: Focal asymmetry at 3 o'jessica ck anteriorly, unchanged. Benign, no evidence of malignancy. Jeny l interval follow-up is recommended in 12 months. OVERALL ASSESSMENT - CATEGORY 2 - BENIGN END OF IMPRESSION SB Dictating SHIMON GORDON Radiologist Pauline Jimenez PA-C RAD SONYA documented in this encounter Visit Diagnoses Not on filedocumented in this encounter Care Teams Lumpia Wrapper Maker Relationship Specialty Start Date End Date Pauline Jimenez PA-C PCP - General 06/17/10 12/12/14 [address] [place] [address] documented as of this encounter
--- OUTSIDE RECORDS SUMMARY | 2022-02-26 10:52 | XMS_ITS | Encounter Summary ---
:1960 Author Organization [facility] Address [address] [place] [address] Care Team Providers Name Role Phone Barbara Qasim Malone PA-C Primary Care Provider Reason for Visit Reason Comments Other Encounter Details Date Type Department Care Team Description 06/22/2008 Telephone [facility], Message Other [address] [place], [place] [address] Social History Tobacco Use Types Packs/Day Years Used Date Smoking Tobacco: Never Assessed Sex Assigned at Date Recorded Not on file documented as of this encounter [facility], Message - 06/22/2008 8:31 AM CDT Phone Note filed by [employer] at 07/05/10 2330 Author: [employer] Service: (none) Author Type: (none) Filed: 07/05/10 8461 Note Time: 06/22/08830 Status: Signed Automotive Quality Manager: [employer] (Resource) PRESCRIPTION REFILL Request #1: Please provide enough refills to last until patient's next visit. Comment:- Pharmacy Seq #:-[phone] Pharmacy Name:-[address] or City:- [facility] Name:-Ashley MAY Drug Name/Strength:-ZOCOR 20MG TAB Sig: Dose/Route/Freq:-TAKE ONE TAB IN THE EVENING Quantity & Last Fill:-30 05/18/08 Callers Name:- Relationship to Patient:- Call back number:- Is is OK to leave a confidential message on this voicemail?:- Patient has contacted Pharmacy: Comments: - PRESCRIPTION REFILL Request #2: Comment:- Drug Name/Strength:-CELEXA 40MG TAB Sig: Dose/Route/Freq:-TAKE ONE TAB EVERY DAY Quantity & Last Fill:02/17/08 PRESCRIPTION REFILL Request #3: Comment:- Drug Name/Strength:-TRIAMT/HCTZ 75-50 TAB Sig: Dose/Route/Freq:-TAKE ONE TAB DAILY Quantity & Last Fill:11/17/07 PRESCRIPTION REFILL Request #4: Comment:- Drug Name/Strength:-LISINOPRIL 5MG TAB Sig: Dose/Route/Freq:-TAKE ONE TAB DAILY Quantity & Last Fill:02/20/08 Created on 22Jun2008 8:31am by KATYA TORRES On 22Jun2008 9:35am MOHSEN SULTANA wrote: Unable to refill per Medical Refill Protocol Comment:Last PCP visit/labs 03/2007.No future appt scheduled. Please advise/address.Thanks. On 22Jun2008 12:50pm QASIM MAY wrote: Rx given for one month. Needs appointment before additional refills will be given. Please contact patient to schedule med check. Acknowledged by QASIM MAY on 12:50pm On 22Jun2008 3:56pm BOOM GOMEZ wrote: mssg to pt YBOAT OPERATOR CABLE documented in this encounter Plan of Treatment Not on filedocumented as of this encounter Visit Diagnoses Not on filedocumented in this encounter Care Teams Field Auditor Relationship Specialty Start Date End Date Qsaim Jimenez PA-C PCP - General 06/17/10 12/12/14 [address] [place] [address] documented as of this encounter
--- OUTSIDE RECORDS SUMMARY | 2022-02-26 10:52 | XMS_ITS | Encounter Summary ---
:1960 Author Organization [facility] Address [address], [place] [address] Care Team Providers Name Role Phone Qasim Jimenez PA-C Primary Care Provider Reason for Visit Reason Comments Other Encounter Details Date Type Department Care Team Description 09/13/2008 Telephone [facility], Message Other [address] [place] [address] Social History Tobacco Use Types Packs/Day Years Used Date Smoking Tobacco: Never Assessed Sex Assigned at Date Recorded Not on file documented as of this encounter Progress Notes Qasim Jimenez PA-C - 09/13/2008 3:13 PM CDT Phone Note filed by Qasim May PA-C at 07/06/10602 Author: Qasim May PA-C Service: (none) Author Type: Physician Metal Bonding Helper Filed: 07/06/10602 Note Time: 09/13/08 1513 Status: Signed Radio Repair Teacher: Qasim May PA-C (Resource) Please schedule RUQ US for abnormal LFT's, patient with h/o Hepatitis B carrier. You may speak to her mother who will answer the phone. Please schedule for next Friday (09/23) or the following Friday (09/30). Created on 13Sep2008 3:13pm by QASIM MAY On 13Sep2008 3:38pm KRISTI ALBA wrote: scheduled. Patient's installation service representative given message. Acknowledged by KRISTI ALBA on 3:38pm H BRAKER documented in this encounter Plan of Treatment Not on filedocumented as of this encounter Visit Diagnoses Not on filedocumented in this encounter Care Teams Welfare Interviewer Relationship Specialty Start Date End Date Qasim Jimenez PA-C PCP - General 06/17/10 12/12/[address] [place] [address] documented as of this encounter
--- OUTSIDE RECORDS SUMMARY | 2022-02-26 10:52 | XMS_ITS | Encounter Summary ---
:1960 Author Organization [facility] Address [address], [place] [address] Care Team Providers Name Role Phone Pauline Jimenez PA-C Primary Care Provider Encounter Details Date Type Department Care Team Description 07/13/2007 PN Conversion Only [facility] [address] [place] [address] [place] [address] [phone] (Wo rk) Social History Tobacco Use Types Packs/Day Years Used Date Smoking Tobacco: Never Assessed Sex Assigned at Date Recorded Not on file documented as of this encounter Plan of Treatment Not on filedocumented as of this encounter Visit Diagnoses Not on filedocumented in this encounter Care Teams Stem Teacher Relationship Specialty Start Date End Date Pauline Jimenez PA-C PCP - General 06/17/10 12/12/[address] [place] [address] documented as of this encounter
--- OUTSIDE RECORDS SUMMARY | 2022-02-26 10:52 | XMS_ITS | Encounter Summary ---
:1960 Author Organization [facility] Address [address], [place] [address] Care Team Providers Name Role Phone Qasim Jimenez PA-C Primary Care Provider Reason for Visit Reason Comments Other Encounter Details Date Type Department Care Team Description 02/17/2009 Telephone [facility], Message Other [address] [place], [place] [address] Social History Tobacco Use Types Packs/Day Years Used Date Smoking Tobacco: Never Assessed Sex Assigned at Date Recorded Not on file documented as of this encounter [facility], Message - 02/17/2009 12:28 PM CST Phone Note filed by [employer] at 07/06/101851 Author: [employer] Service: (none) Author Type: (none) Filed: 07/06/101851 Note Time: 02/17/091227 Status: Signed Mangle Operator Garments: [employer] (Resource) Front Line Sx Call Caller Name/Relationship:Nirali - Mom Primary Grocery Clerk Stocking:Jenna Symptom or request?Mom states Pt has BP of 105/52 and pulse is 51 - wants advice. Pt is feeling dizzy and she feels she will black out. Is appointment scheduled & when?no Lithographic Plate Maker Apprentice:Nirali Best call back number:[phone] Is it OK to leave a confidential message on this voicemail?y *ECODE~PNSX2 Created on 17Feb2009 12:28pm by MILAGROS ANDERSEN On 17Feb2009 12:40pm AURELIO LIZARRAGA wrote: MESSAGE TO CARE TEAM NAME OF CALLER:Marie mom-translating for patient NAME OF CLINICIAN:Jenna MESSAGE:Patient felt dizzy all day yesterday, blood pressure was checked and it was 83/51 pulse was 43. Patient is not feeling dizzy today, denies chest pain. Blood pressure today was 105/52 and pulse 51. All blood pressure medication and Zocor was held today. Mom would like direction about medication and low blood pressure/pulse, should they continue to hold all meds? Advised to make sure patient is drinking plenty of fluids and eating regularly. Please call back. CALL BACK PHONE OR CELL PHONE:[phone] BEST TIME TO CALL BACK: IS IT OK TO LEAVE A CONFIDENTIAL MESSAGE ON THIS VOICEMAIL?yes *ECODE~PNMSG On 17Feb2009 12:57pm QASIM MAY wrote: Hold Atenolol, Maxide, and lisinopril. Continue the Zocor (simvastatin). Please have her come in on Friday during acute time for BP recheck. Have mom continue to monitor bp's over the weekend. If symptoms not improving or worsening bring her to . Acknowledged by QASIM MAY on 12:57pm On 17Feb2009 2:07pm LIDIA ROSARIO wrote: Pt's mom informed of the above message. Appt booked for Friday. Acknowledged by LIDIA ROSARIO on 2:07pm L CEILING BUILDER documented in this encounter Plan of Treatment Not on filedocumented as of this encounter Visit Diagnoses Not on filedocumented in this encounter Care Teams Annual Campaign Manager Relationship Specialty Start Date End Date Qasim Jimenez PA-C PCP - General 06/17/10 12/12/[address] [place] [address] documented as of this encounter
--- OUTSIDE RECORDS SUMMARY | 2022-02-26 10:53 | XMS_ITS | Encounter Summary ---
:1960 Author Organization [facility] Address [address] [place] [address] Care Team Providers Name Role Phone Qasim Jimenez PA-C Primary Care Provider Encounter Details Date Type Department Care Team Description 04/11/[address] [facility] rochelle Qasim Jimenez PA-C [address] [facility] [address] [place] [address] [place] [address] [phone] (Wo rk) Social History Tobacco Use Types Packs/Day Years Used Date Smoking Tobacco: Never Assessed Sex Assigned at Date Recorded Not on file documented as of this encounter Last Filed Vital Signs Vital Sign Reading Time Taken Comments Blood Pressure 122/84 04/11/2006 9:45 AM MARKET RESEARCH COORDINATOR Pulse 60 04/11/2006 9:45 AM MARKET RESEARCH COORDINATOR Temperature - - Respiratory Rate - - Oxygen Saturation - - Inhaled Oxygen Concentration - - Weight 57.8 kg (127 lb 7.9 oz) 04/11/2006 9:45 AM MARKET RESEARCH COORDINATOR C : 57.8kg Height - - Body Mass Index 24.09 01/03/2006 2:43 PM CDT documented in this encounter Progress Notes Qasim Jimenez PA-C - 04/11/2006 12:01 AM CST Progress Notes signed by Qasim Jimenez PA-C at 04/16/06 1529 Author: Qasim May PA-C Service: (none) Author Type: Physician Furniture Upholstery Mechanic Filed: 07/06/10 8965 Note Time: 04/11/06 0001 Status: Signed Distillery Miller Helper: Qasim May PA-C (Physician Furniture Upholstery Mechanic) NAME: WOO RAYA MR#: [id number] ACCT: [id number] VISIT: [id number] DICTATING CLINICIAN: QASIM MAY PA-C JOB: [id number] LOC: 502 CLINIC PROGRESS NOTE DATE OF VISIT: 04/11/2006 SUBJECTIVE: Chief Concern: Hypertension. HPI: Patient is taking her medications as directed. She continues to not exercise regularly. Is not watching her diet. Has had no side effects from the medication at all. No chest pain, no shortness of breath. No lightheadedness. No pedal edema. States she is having some heartburn symptoms. Has been daily for the last month. Leaves a funny taste in her mouth. Her father and sister have the same problem. Her sister states she drinks a lot of coffee and eats a lot of spicy foods. PAST MEDICAL HISTORY: Reviewed in the patient health profile in [employer] today. CURRENT MEDICATIONS: Reviewed and updated in patient health profile in [employer] today. ADR/ALLERGIES: REVIEWED AND UPDATED IN PATIENT HEALTH PROFILE IN [employer] TODAY. SOCIAL HISTORY: Nonsmoker. Does not get regular exercise. Further complete ROS negative. OBJECTIVE: VS: BP: 122/84. P: 60. Wt: 127.5 lb. This is a 46-year-old [place] in [facility]. She is alert and oriented times 3. SKIN: Warm and dry. No rashes. No cyanosis. The entire 15 minute exam was spent in counseling over hypertension, lifestyle changes, and dietary changes. ASSESSMENT: 1. Hypertension, adequately controlled. 2. Hepatitis B carrier state. PLAN: Will have her continue on the lisinopril 5 mg daily. Continue with atenolol 25 mg daily and Maxzide 50 daily. Continue with daily aspirin. Will add omeprazole 20 mg daily. Reduce spicy foods. Reduce caffeine intake. Smaller meals throughout the day. Nothing to eat 2 hours prior to bedtime. If symptoms persist or worsen, she is to return to clinic. Will do a right upper quadrant ultrasound to follow up on the hepatitis B carrier state. She is agreeable with the above plan. FINAL IMPRESSION: 1. Hypertension, adequately controlled. 2. Hepatitis B, carrier state. TLW:[id number] C: 04/14/06 10:20 DOCUMENT: [id number] ET RESEARCH COORDINATOR documented in this encounter Plan of Treatment Not on filedocumented as of this encounter Visit Diagnoses Not on filedocumented in this encounter Care Teams Machine Ironer Relationship Specialty Start Date End Date Qasim Jimenez PA-C PCP - General 06/17/10 12/12/14 [address] [place] [address] documented as of this encounter
--- OUTSIDE RECORDS SUMMARY | 2022-02-26 10:53 | XMS_ITS | Encounter Summary ---
:1960 [facility] Address [address] [place] [address] Care Team Providers Name Role Phone Qasim Jimenez PA-C Primary Care Provider Encounter Details Date Type Department Care Team Description 02/04/2005 Office Visit [facility] rochelle Qasim Jimenez PA-C [address] [facility] [address] [place] [address] [place] [address] [phone] (Wo rk) Social History Tobacco Use Types Packs/Day Years Used Date Smoking Tobacco: Never Assessed Sex Assigned at Date Recorded Not on file documented as of this encounter Last Filed Vital Signs Vital Sign Reading Time Taken Comments Blood Pressure 110/78 02/04/2005 3:38 PM DYNAMIC BALANCER Pulse 52 02/04/2005 3:38 PM DYNAMIC BALANCER Temperature - - Respiratory Rate - - Oxygen Saturation - - Inhaled Oxygen Concentration - - Weight 52.4 kg (115 lb 7.6 oz) 02/04/2005 3:38 PM DYNAMIC BALANCER C : 52.4kg Height - - Body Mass Index - - documented in this encounter Progress Notes Qasim Jimenez PA-C - 02/04/2005 12:01 AM CST Progress Notes signed by Qasim Jimenez PA-C at 02/05/05 1049 Author: Qasim May PA-C Service: (none) Author Type: Physician Pipe Line Walker Filed: 07/06/10 0828 Note Time: 02/04/05 0001 Status: Signed Test Deck Supervisor: Qasim May PA-C (Physician Pipe Line Walker) NAME: WOO RAYA MR: [id number] ACCT: [id number] VISIT: [id number] DICTATING CLINICIAN: QASIM MAY PA-C JOB: [id number] CLINIC PROGRESS NOTE DATE OF VISIT: 02/04/2005 SUBJECTIVE: Chief Concern: Hyperlipidemia. HPI: She had been placed on Zocor 10 mg daily back in late November. She has been taking it daily as directed. Has not noticed any significant side effects. She did mention some intermittent abdominal pain with occasional nausea. No vomiting. Softer stools reported up to four times daily. No blood, no melena. States the abdominal pain disappears after she has a bowel movement. It is unclear as to whether this started before starting Zocor or if it started after, but she does report having this problem in the past. Sister is going to mention this to her parents, and they will continue to monitor. I will have them contact me if this is a new problem. She otherwise has been doing well on the Zocor. She reports she is increasing her vegetable intake, is reducing her sweets. She is exercising intermittently. Admits she does have to work on that. PAST MEDICAL HISTORY: Reviewed and updated in the patient health profile in [employer] today. CURRENT MEDICATIONS: Reviewed and updated in the patient health profile in [employer] today. ADR/ALLERGIES: REVIEWED AND UPDATED IN THE PATIENT HEALTH PROFILE IN [employer] TODAY. SOCIAL HISTORY: She is a nonsmoker. Lives at home with her parents. Further complete ROS is negative. OBJECTIVE: VS: BP: 110/78. P: 52. Wt: 115.5. This is a 44-year-old female in [facility]. She is alert and oriented x 3. SKIN: Warm and dry, no rashes, no cyanosis. CARDIAC: Regular rate and rhythm, with no murmurs, rubs, or gallops. LUNGS: CTAB. ABDOMEN: Soft. Bowel sounds positive. No HSM. No masses. There is some mild tenderness along well-healed scar line from a prior abdominoplasty. No rebound. No guarding. ASSESSMENT: 1. Hyperlipidemia, under adequate control. 2. Elevated LFTs. PLAN: I am going to have her remain on the Zocor 10 mg daily. Side effect profile reviewed, and they will contact me if the stool changes is a new thing. If it is related to the Zocor, will then tentatively evaluate whether this is a tolerable side effect or not. There was an elevation in her AST during her last set of labs. Will go ahead and recheck AST, ALT, alkaline phosphatase, total bilirubin, hepatitis B panel, and hepatitis C. She will be contacted with the results of her tests. Sister reports that she has history of hepatitis B. Possibility of a right upper quadrant ultrasound to evaluate for liver disease to be considered in the near future. They are agreeable to the plan. FINAL IMPRESSION: 1. Hyperlipidemia, under adequate control. 2. Elevated liver function tests. TLW:[id number] C: 02/05/05 10:13 DOCUMENT: [id number] MIC BALANCER documented in this encounter Plan of Treatment Not on filedocumented as of this encounter Visit Diagnoses Not on filedocumented in this encounter Care Teams Carrot Harvester Relationship Specialty Start Date End Date Qasim Jimenez PA-C PCP - General 06/17/10 12/12/14 [address] [place] [address] documented as of this encounter
--- OUTSIDE RECORDS SUMMARY | 2022-02-26 10:53 | XMS_ITS | Encounter Summary ---
:1960 [facility] Address [address], [place] [address] Care Team Providers Name Role Phone Qasim Jimenez PA-C Primary Care Provider Reason for Visit Reason Comments Other Encounter Details Date Type Department Care Team Description 10/01/2005 Telephone [facility], Message Other [address] [place], [place] [address] Social History Tobacco Use Types Packs/Day Years Used Date Smoking Tobacco: Never Assessed Sex Assigned at Date Recorded Not on file documented as of this encounter [facility], Message - 10/01/2005 9:55 AM CDT Phone Note filed by [employer] at 07/03/10628 Author: [employer] Service: (none) Author Type: (none) Filed: 07/03/10628 Note Time: 10/01/05954 Status: Signed Language And Literature Division Chair: Message Center Sister calling to to see if Qasim should know that since Kishore has been on Aspirin therapy she has developed frequent nose bleeds in the last month. She also bruses bruises. Please call pt's sister,Ethan, who is her guardian at [phone]. Created on 01Oct2005 9:55am by KASEY WILSON On 01Oct2005 11:01am QASIM MAY wrote: Not available. On 01Oct2005 1:46pm QASIM MAY wrote: Not available. On 01Oct2005 2:18pm AMOS CASTORENA wrote: Kishore's sister, ETHAN, returned Qasim's call at 2:20 pm. Please call her on her cell phone . On 01Oct2005 5:08pm QASIM MAY wrote: Please order a PT, PTT, CBC, AST, ALT (bruising). Ethan will have her sister come in for the lab, please send paperwork there. Thanks. Acknowledged by QASIM MAY on 5:08pm On 02Oct2005 7:40am LIDIA ROSARIO wrote: Paperwork sent to the lab. Acknowledged by LIDIA ROSARIO on 7:40am ATING SYSTEMS SPECIALIST documented in this encounter Plan of Treatment Not on filedocumented as of this encounter Visit Diagnoses Not on filedocumented in this encounter Care Teams Electrical Laboratory Technician Relationship Specialty Start Date End Date Qasim Jimenez PA-C PCP - General 06/17/10 12/12/[address] [place] [address] documented as of this encounter
--- OUTSIDE RECORDS SUMMARY | 2022-02-26 10:53 | XMS_ITS | Encounter Summary ---
:1960 Author Organization [email or web address] Address [address], [place] [address] Care Team Providers Name Role Phone Pauline Jimenez PA-C Primary Care Provider Encounter Details Date Type Department Care Team Description 02/04/2005 PN Conversion Only MOSQUE CONVERSION Ashley Jimenez PA-C [address] [place], [place] [address] (Wo rk) Social History Tobacco Use Types Packs/Day Years Used Date Smoking Tobacco: Never Assessed Sex Assigned at Date Recorded Not on file documented as of this encounter Plan of Treatment Not on filedocumented as of this encounter Procedures Procedure Name Priority Date/Time Associated Diagnosis Comme nts HEPATITIS BE Routine 02/04/2005 4:14 PM Results f or this ANTIGEN NIGHT SUPERVISOR procedure are i n the results section. HEPATITIS BE Routine 02/04/2005 4:14 PM Results f or this ANTIBODY NIGHT SUPERVISOR procedure are i n the results section. HEP B SURFACE Routine 02/04/2005 4:14 PM Results for this ANTIGEN CONFIRM NIGHT SUPERVISOR procedure ar e in the results section. HEPATITIS B SURFACE Routine 02/04/2005 4:14 PM Re sults for this ANTIBODY NIGHT SUPERVISOR procedure are i n the results section. HEP B SURFACE Routine 02/04/2005 4:14 PM Results for this ANTIGEN, NO REFLEX NIGHT SUPERVISOR procedure are in the results section. HEPATITIS C Routine 02/04/2005 4:14 PM Results f or this ANTIBODY, WITH NIGHT SUPERVISOR procedure are in REFLEX the results section. HEPATITIS B CORE,AB Routine 02/04/2005 4:14 PM Re sults for this NIGHT SUPERVISOR procedure are i n the results section. ALT (SGPT) Routine 02/04/2005 4:14 PM Results f or this NIGHT SUPERVISOR procedure are i n the results section. AST Routine 02/04/2005 4:14 PM Results f or this NIGHT SUPERVISOR procedure are i n the results section. BILIRUBIN, TOTAL Routine 02/04/2005 4:14 PM Resul ts for this NIGHT SUPERVISOR procedure are i n the results section. ALKALINE Routine 02/04/2005 4:14 PM Results f or this PHOSPHATASE, TOTAL NIGHT SUPERVISOR procedure are in the results section. documented in this encounter Results Alkaline Phosphatase, Total (02/04/2005 4:14 PM NIGHT SUPERVISOR) athologist Signature Alk Phos 82 50 - 136 U/L HP CONVERSION Specimen (Source) Anatomical Collection Method Collection Time Re ceived Time Location / / Volume Laterality 02/04/2005 4:14 PM NIGHT SUPERVISOR Pauline Jimenez PA-C LAB_1 Performing Organization Address City/[facility]/ZIP Code Phon e Number HP CONVERSION ALT (SGPT) (02/04/2005 4:14 PM NIGHT SUPERVISOR) [facility] gist Method Time Signature Alanine 57 0 - 65 HP CONVERSION Aminotransferase U/L Specimen (Source) Anatomical Collection Method Collection Time Re ceived Time Location / / Volume Laterality 02/04/2005 4:14 PM NIGHT SUPERVISOR Pauline Jimenez PA-C LAB_1 Performing Organization Address City/[facility]/ZIP Code Phon e Number HP CONVERSION AST (02/04/2005 4:14 PM NIGHT SUPERVISOR) [facility]ist Method Time Signature Aspartate 29 0 - 45 HP CONVERSION Aminotransferase U/L Specimen (Source) Anatomical Collection Method Collection Time Re ceived Time Location / / Volume Laterality 02/04/2005 4:14 PM NIGHT SUPERVISOR Pauline Jimenez PA-C LAB_1 Performing Organization Address City/[facility]/ZIP Code Phon e Number HP CONVERSION Bilirubin, Total (02/04/2005 4:14 PM NIGHT SUPERVISOR) athologist Signature Bilirubin Total 0.3 0.2 - 1.2 HP CONVERSION mg/dL Specimen (Source) Anatomical Collection Method Collection Time Re ceived Time Location / / Volume Laterality 02/04/2005 4:14 PM NIGHT SUPERVISOR Pauline Jimenez PA-C LAB_1 Performing Organization Address [facility] Code Phon e Number HP CONVERSION (ABNORMAL) Hepatitis B Core Antibody (02/04/2005 4:14 PM NIGHT SUPERVISOR) [facility] Method Time Signature Hepatitis B POSITIVE (A) NEG HP CONVERSION Core Total Antibody Comment: The anti-HBc is reactive, which is consi stent with recent or remote HBV infection. False po sitive anti-HBc results are not uncommon. Specimen (Source) Anatomical Collection Method Collection Time Re ceived Time Location / / Volume Laterality 02/04/2005 4:14 PM NIGHT SUPERVISOR Pauline Jimenez PA-C LAB_1 Performing Organization Address [facility] Code Phon e Number HP CONVERSION (ABNORMAL) Hepatitis Be Antibody (02/04/2005 4:14 PM NIGHT SUPERVISOR) [facility] Method Time Signature Hepatitis Be POSITIVE (A) NEG HP CONVERSION Antibody Comment: The anti-HBe is repeatedly reactive, whi ch is consistent with recent or remote Hepatitis B infection. ??Anti-HBe can be present in a small proportion of chronic HBV inf ections, but its presence usually indicates resolution. Specimen (Source) Anatomical Collection Method Collection Time Re ceived Time Location / / Volume Laterality 02/04/2005 4:14 PM NIGHT SUPERVISOR Pauline العراقي-C LAB_1 Performing Organization Address [facility] Phon e Number HP CONVERSION Hepatitis Be Antigen (02/04/2005 4:14 PM NIGHT SUPERVISOR) athologist Signature Hepatitis Be NEG NEG HP CONVERSION Antigen Specimen (Source) Anatomical Collection Method Collection Time Re ceived Time Location / / Volume Laterality 02/04/2005 4:14 PM NIGHT SUPERVISOR Pauline العراقي-C LAB_1 Performing Organization Address City/[facility]/ZIP Code Phon e Number HP CONVERSION Hepatitis B Surface Antibody (02/04/2005 4:14 PM NIGHT SUPERVISOR) Analysis Performed At [facility] logist Time Signature Hep B Surf Ab Non Reac Non Reac HP CONVERSION Specimen (Source) Anatomical Collection Method Collection Time Re ceived Time Location / / Volume Laterality 02/04/2005 4:14 PM NIGHT SUPERVISOR Pauline العراقي-C LAB_1 Performing Organization Address City/[facility]/ZIP Code Phon e Number HP CONVERSION Hep B Surface Antigen, No Reflex (02/04/2005 4:14 PM NIGHT SUPERVISOR) Analysis Performed At [facility] Signature Hep B Surf Ag Sent Ref Negative HP CONVERSION Comment: Sent to reference lab for confi rmation. Specimen (Source) Anatomical Collection Method Collection Time Re ceived Time Location / / Volume Laterality 02/04/2005 4:14 PM NIGHT SUPERVISOR Pauline W Barbara ANDREC LAB_1 Performing Organization Address City/[facility] Code Phon e Number HP CONVERSION Hepatitis C Antibody, with Reflex (02/04/2005 4:14 PM NIGHT SUPERVISOR) Analysis Performed At [facility] Signature Hepatitis C Non Reac Non Reac HP CONVERSION Antibody Specimen (Source) Anatomical Collection Method Collection Time Re ceived Time Location / / Volume Laterality 02/04/2005 4:14 PM NIGHT SUPERVISOR Pauline W Barbara ANDREC LAB_1 Performing Organization Address [facility] Phon e Number HP CONVERSION (ABNORMAL) Hep B Surface Antigen Confirm (02/04/2005 4:14 PM NIGHT SUPERVISOR) [facility] Time Signature Hepatitis B POSITIVE (A) NEG HP CONVERSION Surface Antigen Confirmation Comment: Hepatitis B surface antigen (HBsAg) did neutralize using anti-HBs. This specimen is therefore POSITIVE for HBsAg. False positives can occur. ??If the result is not supported by clinical evidence, repeat testing of a new sample usually helps cl arify the diagnosis. If a blood transfusion-transmitted infec tion is suspected, please notify the Supervisor [employer] of the Transfusion faci lity. Specimen (Source) Anatomical Collection Method Collection Time Re ceived Time Location / / Volume Laterality 02/04/2005 4:14 PM NIGHT SUPERVISOR Pauline Jimenez PA-C LAB_1 Performing Organization Address City/[facility]/ZIP [facility] Phon e Number HP CONVERSION documented in this encounter Visit Diagnoses Not on filedocumented in this encounter Care Teams Barge Captain Relationship Specialty Start Date End Date Pauline Jimenez PA-C PCP - General 06/17/10 12/12/14 [address] [place] [address] documented as of this encounter
--- OUTSIDE RECORDS SUMMARY | 2022-02-26 10:53 | XMS_ITS | Encounter Summary ---
:1960 Author Organization [facility] Address [address] [address] Care Team Providers Name Role Phone Pauline Jimenez PA-C Primary Care Provider Encounter Details Date Type Department Care Team Description 01/18/2005 PN Conversion Only FAITH CONVERSION Ashley Jimenez PA-C [address] [place] [address] (Wo rk) Social History Tobacco Use Types Packs/Day Years Used Date Smoking Tobacco: Never Assessed Sex Assigned at Date Recorded Not on file documented as of this encounter Plan of Treatment Not on filedocumented as of this encounter Procedures Procedure Name Priority Date/Time Associated Comments Diagnosis GLUCOSE Routine 01/18/2005 9:21 AM Results f or this [employer] procedure are i n the results section. THYROID STIMULATING Routine 01/18/2005 9:21 AM Re sults for this HORMONE [employer] procedure are i n the results section. LIPID PANEL AND Routine 01/18/2005 9:21 AM Result s for this DIRECT LDL(IF NEEDED) [employer] proced ure are in the results section. ALT (SGPT) Routine 01/18/2005 9:21 AM Results f or this [employer] procedure are i n the results section. AST Routine 01/18/2005 9:21 AM Results f or this [employer] procedure are i n the results section. documented in this encounter Results Thyroid Stimulating Hormone (01/18/2005 9:21 AM [employer]) P athologist Signature Thyroid 2.33 0.20 - HP CONVERSION Stimulating 4.50 Hormone uIU/mL Specimen (Source) Anatomical Collection Method Collection Time Re ceived Time Location / / Volume Laterality 01/18/2005 9:21 AM [employer] Pauline ANDREC LAB_1 Performing Organization Address City/[facility] Code Phon e Number HP CONVERSION (ABNORMAL) Lipid Panel and Direct LDL(If Needed) (01/18/2005 9:21 AM [employer]) [facility] Method Time Signature Cholesterol/HDL 4.0 No normal HP CONVERSION Ratio Screen range Cholesterol 170 <200 mg/dL HP CONVERSION HDL Cholesterol 42 40 - 60 HP CONVERSION mg/dL Triglycerides 182 (H) 0 - 149 HP CONVERSION mg/dL LDL Calculated 92 0 - 130 HP CONVERSION mg/dL Comment: Specimen (Source) Anatomical Collection Method Collection Time Re ceived Time Location / / Volume Laterality 01/18/2005 9:21 AM [employer] Pauline العراقي-C LAB_1 Performing Organization Address [facility] Phon e Number HP CONVERSION (ABNORMAL) Glucose (01/18/2005 9:21 AM [employer]) athologist Signature Lab Glucose 102 (H) 60 - 100 HP CONVERSION mg/dL Specimen (Source) Anatomical Collection Method Collection Time Re ceived Time Location / / Volume Laterality 01/18/2005 9:21 AM [employer] Pauline ANDREC LAB_1 Performing Organization Address [facility] Phon e Number HP CONVERSION AST (01/18/2005 9:21 AM [employer]) [facility] Method Time Signature Aspartate 35 0 - 45 HP CONVERSION Aminotransferase U/L Specimen (Source) Anatomical Collection Method Collection Time Re ceived Time Location / / Volume Laterality 01/18/2005 9:21 AM [employer] Pauline العراقي-C LAB_1 Performing Organization Address City/[facility]/ZIP Code Phon e Number HP CONVERSION (ABNORMAL) ALT (SGPT) (01/18/2005 9:21 AM [employer]) [facility] Method Time Signature Alanine 77 (H) 0 - 65 HP CONVERSION Aminotransferase U/L Specimen (Source) Anatomical Collection Method Collection Time Re ceived Time Location / / Volume Laterality 01/18/2005 9:21 AM [employer] Pauline ANDREC LAB_1 Performing Organization Address City/State/ZIP Code Phon e Number HP CONVERSION documented in this encounter Visit Diagnoses Not on filedocumented in this encounter Care Teams Sanitation Worker Cleaning Equipment Relationship Specialty Start Date End Date Pauline Jimenez PA-C PCP - General 06/17/10 12/12/[address] [place] [address] documented as of this encounter
--- OUTSIDE RECORDS SUMMARY | 2022-02-26 10:53 | XMS_ITS | Encounter Summary ---
:1960 Author Organization [facility] Address [address] [address] Care Team Providers Name Role Phone Pauline Jimenez PA-C Primary Care Provider Encounter Details Date Type Department Care Team Description 10/11/2005 PN Conversion Only HOAHAOISM CONVERSION Ashley Jimenez PA-C [address] [place] [address] (Wo rk) Social History Tobacco Use Types Packs/Day Years Used Date Smoking Tobacco: Never Assessed Sex Assigned at Date Recorded Not on file documented as of this encounter Plan of Treatment Not on filedocumented as of this encounter Procedures Procedure Name Priority Date/Time Associated Comments Diagnosis COMPLETE BLOOD Routine 10/11/2005 8:41 AM Results for this COUNT-W/DIFF CDT procedure are i n the results section. APTT (ACTIVATED PARTIAL Routine 10/11/2005 8:41 AM Results for this THROMBOPLASTIN TIME CDT procedur e are in the results section. ALT (SGPT) Routine 10/11/2005 8:41 AM Results f or this CDT procedure are i n the results section. AST Routine 10/11/2005 8:41 AM Results f or this CDT procedure are i n the results section. documented in this encounter Results (ABNORMAL) Complete Blood Count-W/Diff (10/11/2005 8:41 AM CDT) [facility] Method Time Signature White Blood Cell 6.4 3.8 - 11.0 HP CONVERSIO N Count K/cmm Red Blood Cell 4.81 3.70 - HP CONVERSION Count 5.20 m/cmm Hemoglobin 13.8 11.8 - HP CONVERSION 15.5 gm/dL Hematocrit 41.3 35.0 - HP CONVERSION 46.0 % Mean Corpuscular 85.8 80.0 - HP CONVERSION Volume 100.0 fl Mean Corpuscular 28.7 27.0 - HP CONVERSION Hemoglobin 34.0 pg Mean Corpuscular 33.5 32.0 - HP CONVERSION Hemoglobin Conc 36.5 gm/dL [place] RDW 13.1 11.0 - HP CONVERSION 15.0 % Platelet Count 316 140 - 450 HP CONVERSION k/cmm Differential Auto-Dif No normal HP CONVERSION Verify range Neutrophils 2.9 2.0 - 7.5 HP CONVERSION Absolute Count K/cmm Neutrophil 44.5 (L) 50.0 - HP CONVERSION 75.0 % Lymphocyte % 42.2 (H) 20.0 - HP CONVERSION 40.0 % Monocyte 9.3 5.0 - 14.0 HP CONVERSION % Eosinophil 3.5 0.0 - 6.0 HP CONVERSION % Basophil % 0.5 0.0 - 2.0 HP CONVERSION % Specimen (Source) Anatomical Collection Method Collection Time Re ceived Time Location / / Volume Laterality 10/11/2005 8:41 AM CDT Pauline ANDREC LAB_1 Performing Organization Address [facility]/ZIP Code Phon e Number HP CONVERSION (ABNORMAL) ALT (SGPT) (10/11/2005 8:41 AM CDT) [facility] [employer] Method Time Signature Alanine 67 (H) 0 - 65 HP CONVERSION Aminotransferase U/L Specimen (Source) Anatomical Collection Method Collection Time Re ceived Time Location / / Volume Laterality 10/11/2005 8:41 AM CDT Pauline العراقي-C LAB_1 Performing Organization Address City/[facility]/ZIP Code Phon e Number HP CONVERSION AST (10/11/2005 8:41 AM CDT) [facility] [employer] Method Time Signature Aspartate 30 0 - 45 HP CONVERSION Aminotransferase U/L Specimen (Source) Anatomical Collection Method Collection Time Re ceived Time Location / / Volume Laterality 10/11/2005 8:41 AM CDT Pauline ANDREC LAB_1 Performing Organization Address City/State/ZIP Code Phon e Number HP CONVERSION APTT (Activated Partial Thromboplastin Time) (10/11/2005 8:41 AM CDT) [facility] gist Method Time Signature Partial 31.7 25.0 - HP CONVERSION Thromboplastin Time 38.0 sec Comment: New aPTT reagent in use effective 04/19/05 . See [employer] for current heparin dosage adjustments (new therapeutic rang e for full unfractionated heparin anticoagulation 65 ??to 95 seconds). Specimen (Source) Anatomical Collection Method Collection Time Re ceived Time Location / / Volume Laterality 10/11/2005 8:41 AM CDT Pauline Jimenez PA-C LAB_1 Performing Organization Address City/State/ZIP Code Phon e Number HP CONVERSION documented in this encounter Visit Diagnoses Not on filedocumented in this encounter Care Teams Defensive Driving Instructor Relationship Specialty Start Date End Date Pauline Jimenez PA-C PCP - General 06/17/10 12/12/[address] [place] [address] documented as of this encounter
--- OUTSIDE RECORDS SUMMARY | 2022-02-26 10:53 | XMS_ITS | Encounter Summary ---
:1960 Author Organization [facility] Address [address] [place] [address] Care Team Providers Name Role Phone Qasim Jimenez PA-C Primary Care Provider Encounter Details Date Type Department Care Team Description 01/03/2006 Office Visit [facility] Qasim Mulligan PA-C [address] [facility] [address] [place] [address] [place] [address] [phone] (Wo rk) Social History Tobacco Use Types Packs/Day Years Used Date Smoking Tobacco: Never Assessed Sex Assigned at Date Recorded Not on file documented as of this encounter Last Filed Vital Signs Vital Sign Reading Time Taken Comments Blood Pressure 134/94 01/03/2006 2:46 PM CDT Pulse 52 01/03/2006 2:43 PM CDT Temperature - - Respiratory Rate - - Oxygen Saturation - - Inhaled Oxygen Concentration - - Weight 56.2 kg (123 lb 15.8 oz) 01/03/2006 2:43 PM C: 5 6.2kg CDT Height 154.9 cm (5' 1) 01/03/2006 2:43 PM C: 154.9cm CDT Body Mass Index 23.43 01/03/2006 2:43 PM CDT documented in this encounter Progress Notes Qasim Jimenez PA-C - 01/03/2006 12:01 AM CDT H&P signed by Qasim Jimenez PA-C at 01/29/06 1026 Author: Qasim May PA-C Service: (none) Author Type: Physician Data Processing Clerk Filed: 07/06/10 1508 Note Time: 01/03/062014 Status: Signed Admissions Specialist: Qasim May PA-C (Physician Data Processing Clerk) NAME: WOO RAYA MR: [id number] ACCT: [id number] VISIT: [id number] DICTATING CLINICIAN: QASIM MAY PA-C JOB: [id number] LOC: 502 CLINIC PHYSICAL DATE OF VISIT: 01/03/2006 SUBJECTIVE: Chief Concern: 1. Well exam. 2. Hypertension. 3. Behavioral issues. HPI: The patient presents today with her mother and kitchen designer for well exam. The patient's sister, who is in charge of her medical care, sends with her a sheet with concerns about behavioral issues at home. They have been struggling with increased irritability and hoarding stating she will joan food. States her and her parents have moved into a home where she is no longer close to stores where she can make worthless purchases. Mom states she was making purchases anywhere from material things to food and then would joan them in her room. Apparently she has been stealing from family members, stealing also from her kids. Sister is concerned that she is not taking her Zoloft. They were wondering if we could switch her to Lexapro. Woo is concerned about diarrhea and stating she is going approximately 5 times a day. She is getting stomach cramping. No fevers and no weight loss. Mom was unaware that she was having the problem. PAST MEDICAL HISTORY: Reviewed in the patient health profile in [employer] today. She is 2, para 2. No history of abnormal Pap smears. CURRENT MEDICATIONS: Reviewed and updated in patient health profile in [employer] today. FAMILY HISTORY: Hypercholesterolemia, hypertension and diabetes. SOCIAL HISTORY: Her 2 children were adopted by her sister. She is not getting regular exercise. Is not eating a healthy diet. Is not getting adequate calcium intake. Has not been doing regular self breast examinations. Denies tobacco or alcohol use. FURTHER COMPLETE ROS: Negative. OBJECTIVE: VS: BP: 134/94. P: 52. Ht: 61 in. Wt: 124 lb. A 45-year-old female in NAD. She is alert and oriented x 3. SKIN: Warm and dry. No rashes. No cyanosis. HEENT: Head is normocephalic. Ear canals clear. TMs clear with normal landmarks. Sclerae white. Conjunctivae pink. PERRLA, EOMI. Posterior oropharynx pink and moist without lesions. NECK: Supple without lymphadenopathy or thyromegaly. CARDIAC: Regular rate and rhythm with no murmurs, rubs or gallops. No carotid bruits. Pulses 2+ throughout. No pedal edema. LUNGS: CTAB. ABDOMEN: Soft. Bowel sounds positive. No HSM, no masses. Slight tenderness in the lower abdomen bilaterally. No rebound or guarding. BREASTS: Symmetric without no dimpling, no retractions, no palpable masses or tenderness bilaterally. No axillary lymphadenopathy bilaterally. PELVIC: External genitalia without redness or lesions. Vaginal mucosa pale in appearance. No speculum examination was done today. Bimanual examination does reveal some pelvic fullness and tenderness on examination. DTRs symmetrical throughout. ASSESSMENT: 1. A 45-year-old well exam. 2. Hypertension, not adequately controlled. 3. Hyperlipidemia. 4. Pelvic pain and fullness. 5. Gestational diabetes. PLAN: 1. Encouraged regular exercise and balanced diet. Will send her to nutrition services for cholesterol counseling. Pap smear obtained. Recent mammogram done, appears normal. Adequate calcium intake encouraged. Regular self breast examinations encouraged. 2. Hypertension. Refilled the atenolol 25 mg daily, Maxzide 75 one p.o. daily. Will add lisinopril 5 mg daily. Will have follow up in 4 weeks for recheck. Will do BUN, creatinine, electrolyte panel, UMAR, glucose, TSH. 3. For the hyperlipidemia, cholesterol fractionation, liver functions. Refilled the Zocor 10 mg daily. Again encouraged regular exercise, low cholesterol diet. 4. For pelvic pain and fullness, will do pelvic ultrasound, CBC, ESR, UA. 5. For the mood changes, consult psychiatry with possible transfer of care. If they decide to do antipsychotic, will switch her from Zoloft to Lexapro 20 mg daily. Talked to her about tapering. I wrote tapering process down for them for reference. FINAL IMPRESSION: 1. A 45-year-old well exam. 2. Hypertension. 3. Hyperlipidemia. 4. Pelvic pain and fullness. 5. Mood disorder. TLW:[id number] C: 01/06/06 11:55 DOCUMENT: [id number] IGURATION MANAGEMENT SPECIALIST documented in this encounter Plan of Treatment Not on filedocumented as of this encounter Visit Diagnoses Not on filedocumented in this encounter Care Teams Terminal Block Assembler Relationship Specialty Start Date End Date Qasim Jimenez PA-C PCP - General 06/17/10 12/12/[address] [place] [address] documented as of this encounter
--- OUTSIDE RECORDS SUMMARY | 2022-02-26 10:53 | XMS_ITS | Encounter Summary ---
:1960 Author Organization [facility] Address [address] [place] [address] Care Team Providers Name Role Phone Pauline Jimenez PA-C Primary Care Provider Reason for Visit Reason Comments Other Encounter Details Date Type Department Care Team Description 03/14/2006 Telephone [facility], Message Other [address] [place], [place] [id number] Social History Tobacco Use Types Packs/Day Years Used Date Smoking Tobacco: Never Assessed Sex Assigned at Date Recorded Not on file documented as of this encounter [facility], Message - 03/14/2006 1:40 PM CST Phone Note filed by JoGuru at 07/03/10 0756 Author: JoGuru Service: (none) Author Type: (none) Filed: 07/03/10 7778 Note Time: 03/14/06 1340 Status: Signed Hybrid Corn Breeder: JoGuru Prescription Refill Please provide enough refills to last until patient's next visit. Comment:- Pharmacy Seq #:-[phone] Pharmacy Name:-[facility] Pharm[facility] Street or City:[facility] Clinician Name:[facility] Name/Strength:-Lisinopril 5mg tab Sig: Dose/Route/Freq:-take one tab daily Quantity & Last Fill:-30 02/17/06 Created on 14Mar2006 1:40pm by KATYA TORRES On [id number] 4:06pm JARED DALLAS wrote: REFILL APPOINTMENT NEEDED Please call patient and schedule appointment within 30 days. Medication has been renewed and faxed to pharmacy for 30 day supply only, per protocol. Comment:-Pt had well ck 12-20. Lisinipril was added to med and pt told to f/u on this med in 4 weeks so only gave her 1 mo refill . Needs f/u appt On [id number] 9:36am TONIA JARAMILLO wrote: appointment made IC COORDINATOR documented in this encounter Plan of Treatment Not on filedocumented as of this encounter Visit Diagnoses Not on filedocumented in this encounter Care Teams Data Entry Coordinator Relationship Specialty Start Date End Date Pauline Jimenez PA-C PCP - General 06/17/10 12/12/14 [address] [place] [address] documented as of this encounter
--- OUTSIDE RECORDS SUMMARY | 2022-02-26 10:53 | XMS_ITS | Encounter Summary ---
:1960 Author Organization [facility] Address [address] [place] [address] Care Team Providers Name Role Phone Qasim Jimenez PA-C Primary Care Provider Encounter Details Date Type Department Care Team Description 12/07/2004 Office Visit [facility] rochelle Qasim Jimenez PA-C [address] [facility] [address] [place] [address] [place] [address] [phone] (Wo rk) Social History Tobacco Use Types Packs/Day Years Used Date Smoking Tobacco: Never Assessed Sex Assigned at Date Recorded Not on file documented as of this encounter Last Filed Vital Signs Vital Sign Reading Time Taken Comments Blood Pressure 130/80 12/07/2004 10:38 AM CDT Pulse 64 12/07/2004 10:36 AM CDT Temperature - - Respiratory Rate - - Oxygen Saturation - - Inhaled Oxygen Concentration - - Weight 52.2 kg (114 lb 15.9 oz) 12/07/2004 10:36 AM C: 52.2kg CDT Height - - Body Mass Index - - documented in this encounter Progress Notes Qasim Jimenez PA-C - 12/07/2004 12:01 AM CDT Progress Notes signed by Qasim Jimenez PA-C at 12/10/04 1650 Author: Qasim May PA-C Service: (none) Author Type: Physician Cask Maker Filed: 07/06/10 0719 Note Time: 12/07/04 0001 Status: Signed Green Chain Worker: Qasim May PA-C (Physician Cask Maker) NAME: WOO RAYA MR: [id number] ACCT: [id number] VISIT: [id number] DICTATING CLINICIAN: QASIM MAY PA-C JOB: [id number] CLINIC PROGRESS NOTE DATE OF VISIT: 12/07/2004 SUBJECTIVE: Chief Concern: Hyperlipidemia. HPI: At her well exam it was brought up that she is making poor food choices and is not exercising regularly. She does have a significant family history of high cholesterol, hypertension, and heart disease especially on her mother's side. With results from today, Woo is quite scared that she has done damage and that perhaps she might from not taking control of her cholesterol. She recently had a cousin of cancer. CURRENT MEDICATIONS: Reviewed today in the patient health profile in LastWord. ADR/ALLERGIES: REVIEWED TODAY IN THE PATIENT HEALTH PROFILE IN LASTWORD. SOCIAL HISTORY: She is a nonsmoker. Does not get regular exercise. Is not following a low cholesterol diet plan. Further complete ROS negative as stated above. OBJECTIVE: VS: BP1: 130/90. BP2: 138/88. P: 64. Wt: 115 lb. This is a 44-year-old female in [facility]. She is alert and oriented x3. She is in today with her filler and trimmer and her sister who is acting as her advocate. SKIN: Warm and dry, no rashes. No cyanosis. No further physical examination was done today. The entire 15 minute session was spent in counseling over the hyperlipidemia and plan of care. ASSESSMENT: 1. Hyperlipidemia. 2. Hypertension. PLAN: Much of the exam time today was spent in discussing how her lifestyle changes can help with the hyperlipidemia considerably. Her mom does walk every day. She notes that she can go with her mom for the exercise. I asked her to work into doing 30 minutes of exercise daily and then following a low cholesterol diet. I did give them the number to a rehabilitation psychologist for rehabilitation psychologist consult to talk to them more in depth on a low cholesterol diet plan. Will start her on Zocor 10 mg 1 p.o. nightly for lipid control. Side effect profile and directions on use were reviewed in detail. I will see her back here in 6 weeks for follow up. Two days prior to her exam today she is to have a cholesterol fractionation, AST, ALT, TSH and glucose done. She will contact me with any adverse reactions to the medication. She had at one time been on atenolol 25 mg. We should restart that seeing her blood pressures today. She should be taking atenolol 25 mg daily. I called in a prescription for that as well. She has been taking Zoloft just 100 mg daily. We talked about last time how her moods have seemed more down than usual. Did encourage her to move her dosage up to 150 mg or a pill and a half a day. Her sister is agreeable. Woo is agreeable with the above plan. FINAL IMPRESSION: 1. Hyperlipidemia. 2. Hypertension. TLW:[id number] C: 12/08/04 18:35 DOCUMENT: [id number] documented in this encounter Plan of Treatment Not on filedocumented as of this encounter Procedures Procedure Name Priority Date/Time Associated Diagnosis Comme nts MM MAMMOGRAM Routine 12/07/2004 11:50 AM Results for this SCREENING W CAD CDT procedure ar e in the results section. documented in this encounter Results MM Mammogram Screening W CAD (12/07/2004 11:50 AM CDT) Anatomical Region Laterality Modality Breast Bilateral Mammography Specimen (Source) Anatomical Location Collection Method / Collectio n Time Received Time / Laterality Volume Impressions 12/10/2004 3:59 PM CDT : BILATERAL BREASTS - Category 1 Negative, no evidence of malignancy. Nor mal interval follow-up is recommended in 12 months. OVERALL ASSESSMENT - NEGATIVE END OF IMPRESSION Dictating JESUS PADGETT RADIOLOGIST Narrative 12/10/2004 3:59 PM CDT Bilateral Breast Findings: There are scattered fibroglandular densi ties. ??No significant masses, calcifications or other abnormalities ar e seen. Procedure Note Jesus Mcgee MD - 05/18/2016 Bilateral Breast Findings: There are scattered fibroglandular densi ties. No significant masses, calcifications or other abnormalities ar e seen. IMPRESSION : BILATERAL BREASTS - Category 1 Negative, no evidence of malignancy. Nor mal interval follow-up is recommended in 12 months. OVERALL ASSESSMENT - NEGATIVE END OF IMPRESSION Dictating JESUS PADGETT RADIOLOGIST Qasim Jimenez PA-C RAD SONYA documented in this encounter Visit Diagnoses Not on filedocumented in this encounter Care Teams Sack Repairer Relationship Specialty Start Date End Date Qasim Jimenez PA-C PCP - General 06/17/10 12/12/[address] [place] [address] documented as of this encounter
--- OUTSIDE RECORDS SUMMARY | 2022-02-26 10:53 | XMS_ITS | Encounter Summary ---
:1960 Author Organization [facility] Address [address] [place] [address] Care Team Providers Name Role Phone Qasim Jimenez PA-C Primary Care Provider Encounter Details Date Type Department Care Team Description 11/02/2004 Office Visit [facility] rochelle Qasim Jimenez PA-C [address] [facility] [address] [place] [address] [place] [address] [phone] (Wo rk) Social History Tobacco Use Types Packs/Day Years Used Date Smoking Tobacco: Never Assessed Sex Assigned at Date Recorded Not on file documented as of this encounter Last Filed Vital Signs Vital Sign Reading Time Taken Comments Blood Pressure 134/84 11/02/2004 10:05 AM CDT Pulse 58 11/02/2004 10:05 AM CDT Temperature - - Respiratory Rate - - Oxygen Saturation - - Inhaled Oxygen Concentration - - Weight 52.6 kg (115 lb 15.7 oz) 11/02/2004 10:05 AM C: 52.6kg CDT Height - - Body Mass Index - - documented in this encounter Progress Notes Qasim Jimenez PA-C - 11/02/2004 12:01 AM CDT H&P signed by Qasim Jimenez PA-C at 11/14/04 1410 Author: Qasim May PA-C Service: (none) Author Type: Physician Assistant Director Of Nursing Filed: 07/06/10 0641 Note Time: 11/02/04 0001 Status: Signed Developer Analyst: Qasim May PA-C (Physician Assistant Director Of Nursing) NAME: WOO RAYA MR: [id number] ACCT: [id number] VISIT: [id number] DICTATING CLINICIAN: QASIM MAY PA-C JOB: [id number] CLINIC PHYSICAL DATE OF VISIT: 11/02/2004 SUBJECTIVE: 1. Oral exam 2. Symptomatic verrucose veins. 3. Hypertension. HPI: ? which bother her on the right side, usually the pain is noted in her thigh. Usually alleviates when she can put her legs. They are wondering about possible therapy for that. PAST MEDICAL HISTORY: Reviewed in LastWord. Up note: She has hypertension, had a hysterectomy, and abdominoplasty during that hospitalization. She had pulmonary embolism was on Coumadin therapy for six months. Patient has continued on with ? with depression, hearing loss. She is 2, para 2. Medications and Allergies are reviewed in LastWord. FAMILY HISTORY: Hypercholesterolemia, hypertension, diabetes. SOCIAL HISTORY: Her two children were adopted by her sister. Sister claims that mental maturity about that of an early teenager. Rebelling by eating bad food and not exercising. Sister claims that she is holding food, hiding it in her bedroom. She drinks to much pop and again is not getting regular exercise, does not get adequate calcium intake. Patient is not currently sexually active. No smoking or drinking. Further complete OS significant for constipation; otherwise, negative except as stated as above. OBJECTIVE: This is a 44-year-old female in today with ? . In NAD she is alert, oriented x3. Blood pressure 134/82. BP: 134/82. P: 58. Wt: 116. SKIN: Warm and dry, no cyanosis. HEENT: Head is normocephalic. TMs: Good. Normal anicteric scelera, white conjunctiva pink. PERRLA, ? , lesions. NECK: Supple without lymphadenopathy or thyromegaly. CARDIAC: Regular rate and rhythm with no murmur, rubs, or gallops. LUNGS: CPAB. ABDOMEN: Soft, no mass, no tenderness. There is a well view of her abdomen, consistent with the hysterectomy and abdominoplasty. Breast size symmetrical, no dimpling, no attractions, no probable masses or tenderness bilaterally. No axillary lymphadenopathy bilaterally. Pelvic exam was deferred today. DTRs was symmetrical throughout. Pulses 2+ throughout. Examination of the right leg does reveal varicosities, most of these are in the lower portion of the right thigh, anteromedial aspects. There is no pain to palpation at this time. No inflammation of the skin. ASSESSMENT: 1. 44-year-old well examined. 2. Symptomatic varicoses right thigh. 3. History of PE after hysterectomy and abdominoplasty. 4. Depression. PLAN: We will get cholesterol fractionation, hypertension laboratory, mammogram, A1C, thyroid. I did get some bleeding studies; PT, PTT, protein, COSMETOLOGY PROFESSOR, antithrombin-3. Seems sure these are normal. We will give her vascular surgery consultation for the symptomatic varicose veins. We talked in great lengths about her diet. The need for her to get regular exercise and balanced low-calorie diet. She states that she does not have a problem because her cholesterol is good and she does not have to be as careful as her parents. We will follow up with her within the abnormal lab. We will increase her Zoloft to 150 mg a day, possibility some of the extra eating is due to the fact that she may be mildly depressed. Both Woo and her sister were agreeable with this plan. If she has any further questions or concerns, I will see her back in clinic. FINAL IMPRESSION: 44-year-old well examined. 2. Symptomatic varicose veins at right thigh. 3. Hypertension. 4. History of pulmonary embolism status post abdominoplasty and hysterectomy. TLW:[id number] C: 11/14/04 14:10 DOCUMENT: [id number] documented in this encounter Plan of Treatment Not on filedocumented as of this encounter Visit Diagnoses Not on filedocumented in this encounter Care Teams Precision Optics Technician Relationship Specialty Start Date End Date Qasim Jimenez PA-C PCP - General 06/17/10 12/12/14 [address] [place], [place] [id number] documented as of this encounter
--- OUTSIDE RECORDS SUMMARY | 2022-02-26 10:53 | XMS_ITS | Encounter Summary ---
:1960 Author Organization [facility] Address [address] [address] Care Team Providers Name Role Phone Pauline Jimenez PA-C Primary Care Provider Encounter Details Date Type Department Care Team Description 12/07/2004 PN Conversion Only [facility] [address] [place] [address] Social History Tobacco Use Types Packs/Day Years Used Date Smoking Tobacco: Never Assessed Sex Assigned at Date Recorded Not on file documented as of this encounter Plan of Treatment Not on filedocumented as of this encounter Visit Diagnoses Not on filedocumented in this encounter Care Teams Centerless Grinder Tender Relationship Specialty Start Date End Date Pauline Jimenez PA-C PCP - General 06/17/10 12/12/14 [address] [place] [address] documented as of this encounter
--- OUTSIDE RECORDS SUMMARY | 2022-02-26 10:53 | XMS_ITS | Encounter Summary ---
:1960 Author Organization [facility] Address [address], [place] [address] Care Team Providers Name Role Phone Pauline Jimenez PA-C Primary Care Provider Reason for Visit Reason Comments Other Encounter Details Date Type Department Care Team Description 04/03/2006 Telephone [facility], Message Other [address] [place], [place] [address] Social History Tobacco Use Types Packs/Day Years Used Date Smoking Tobacco: Never Assessed Sex Assigned at Date Recorded Not on file documented as of this encounter Progress Notes [facility], Message - 04/03/2006 2:25 PM CST Phone Note filed by Billtrust at 07/03/10 1430 Author: Billtrust Service: (none) Author Type: (none) Filed: 07/03/10 1430 Note Time: 04/03/061424 Status: Signed Alarm Mechanic: Billtrust Prescription Refill Please provide enough refills to last until patient's next visit. Comment:-Med ck Apr 11 Pharmacy Seq #:-64 Pharmacy Name:-[facility] Pharmacy Street or City:[facility] Clinician Name:[facility] Name/Strength:-Lisinopril 5MG tab Sig: Dose/Route/Freq:-take one tab daily Quantity & Last Fill:-30 02/17/06 Created on 03Apr2006 2:25pm by KATYA TORRES On 03Apr2006 2:29pm KATYA TORRES wrote: PHARMACY CANCELED REQUEST On 03Apr2006 4:49pm MOHSEN SULTANA wrote: Renewed medication per medication refill protocol. NING ANALYST documented in this encounter Plan of Treatment Not on filedocumented as of this encounter Visit Diagnoses Not on filedocumented in this encounter Care Teams Ski Base Trimmer Relationship Specialty Start Date End Date Pauline Jimenez PA-C PCP - General 06/17/10 12/12/[address] [place] [address] documented as of this encounter
--- OUTSIDE RECORDS SUMMARY | 2022-02-26 10:53 | XMS_ITS | Encounter Summary ---
:1960 Author Organization [facility] Address [address] [place] [address] Care Team Providers Name Role Phone Qasim Jimenez PA-C Primary Care Provider Reason for Visit Reason Comments Other Encounter Details Date Type Department Care Team Description 10/21/2005 Telephone [facility], Message Other [address] [place] [address] Social History Tobacco Use Types Packs/Day Years Used Date Smoking Tobacco: Never Assessed Sex Assigned at Date Recorded Not on file documented as of this encounter Progress Notes Chloé Mcginnis RN - 10/21/2005 1:49 PM CDT Phone Note filed by Chloé Mcginnis RN at 07/03/107[address] Author: Chloé Mcginnis RN Service: (none) Author Type: Registered Nurse Filed: 07/03/10714 Note Time: 10/21/051348 Status: Signed Public Transit Bus Driver: Chloé Mcginnis RN (Registered Nurse) MESSAGE TO CARE TEAM NAME OF CALLER:sisterAidan NAME OF CLINICIAN:Qasim May MESSAGE:Would like to know if pt should start back on ASA again and if so how much; PHARMACY NAME: PHARMACY PHONE #: CALL BACK PHONE #:[phone] BEST TIME TO CALL BACK: Is it OK to leave detailed message on voicemail? Y Created on 21Oct2005 1:49pm by CHLOÉ MCGINNIS On 21Oct2005 2:01pm QASIM MAY wrote: If her bruising has subsided, I would suggest giving it another try. If unchanged, I would not restart at this time. Acknowledged by QASIM MAY on 2:01pm On 21Oct2005 2:54pm LIDIA ROSARIO wrote: No bruising noted at this time. Should she start back on the 81mg tab? Acknowledged by LIDIA ROSARIO on 2:54pm On 21Oct2005 3:01pm QASIM MAY wrote: Yes. Acknowledged by QASIM MAY on 3:01pm On 21Oct2005 3:35pm LIDIA ROSARIO wrote: Thr above message left for Bede. Acknowledged by LIDIA ROSARIO on 3:35pm TEAM MEMBER documented in this encounter Plan of Treatment Not on filedocumented as of this encounter Visit Diagnoses Not on filedocumented in this encounter Care Teams Lacquer Dipping Machine Operator Relationship Specialty Start Date End Date Qasim Jimenez PA-C PCP - General 06/17/10 12/12/14 [address] [place] [address] documented as of this encounter
--- OUTSIDE RECORDS SUMMARY | 2022-02-26 10:53 | XMS_ITS | Encounter Summary ---
:1960 Author Organization [facility] Address [address], [place] [address] Care Team Providers Name Role Phone Pauline Jimenez PA-C Primary Care Provider Encounter Details Date Type Department Care Team Description 03/14/2006 PN Conversion Only RESTORATIONIST CONVERSION Ashley Jimenez PA-C [address] [place] [address] (Wo rk) Social History Tobacco Use Types Packs/Day Years Used Date Smoking Tobacco: Never Assessed Sex Assigned at Date Recorded Not on file documented as of this encounter Plan of Treatment Not on filedocumented as of this encounter Procedures Procedure Name Priority Date/Time Associated Comments Diagnosis ELECTROLYTES (NA, K, Routine 03/14/2006 9:08 AM R esults for this CL, BICARB) SUBCONTRACT MANAGER procedure are i n the results section. GT (GAMMA GT) Routine 03/14/2006 9:08 AM Results for this SUBCONTRACT MANAGER procedure are i n the results section. ALT (SGPT) Routine 03/14/2006 9:08 AM Results f or this SUBCONTRACT MANAGER procedure are i n the results section. AST Routine 03/14/2006 9:08 AM Results f or this SUBCONTRACT MANAGER procedure are i n the results section. BILIRUBIN, TOTAL Routine 03/14/2006 9:08 AM Resul ts for this SUBCONTRACT MANAGER procedure are i n the results section. ALKALINE PHOSPHATASE, Routine 03/14/2006 9:08 AM Results for this TOTAL SUBCONTRACT MANAGER procedure are i n the results section. documented in this encounter Results Alkaline Phosphatase, Total (03/14/2006 9:08 AM SUBCONTRACT MANAGER) athologist Signature Alk Phos 96 50 - 136 U/L HP CONVERSION Specimen (Source) Anatomical Collection Method Collection Time Re ceived Time Location / / Volume Laterality 03/14/2006 9:08 AM SUBCONTRACT MANAGER Pauline ANDREC LAB_1 Performing Organization Address [facility] Phon e Number HP CONVERSION ALT (SGPT) (03/14/2006 9:08 AM SUBCONTRACT MANAGER) [facility] gist Method Time Signature Alanine 61 0 - 65 HP CONVERSION Aminotransferase U/L Specimen (Source) Anatomical Collection Method Collection Time Re ceived Time Location / / Volume Laterality 03/14/2006 9:08 AM SUBCONTRACT MANAGER Pauline ANDREC LAB_1 Performing Organization Address [facility] Phon e Number HP CONVERSION AST (03/14/2006 9:08 AM SUBCONTRACT MANAGER) [facility] gist Method Time Signature Aspartate 25 0 - 45 HP CONVERSION Aminotransferase U/L Specimen (Source) Anatomical Collection Method Collection Time Re ceived Time Location / / Volume Laterality 03/14/2006 9:08 AM SUBCONTRACT MANAGER Pauline العراقي-C LAB_1 Performing Organization Address [facility] Phon e Number HP CONVERSION Bilirubin, Total (03/14/2006 9:08 AM SUBCONTRACT MANAGER) athologist Signature Bilirubin Total 0.4 0.2 - 1.2 HP CONVERSION mg/dL Specimen (Source) Anatomical Collection Method Collection Time Re ceived Time Location / / Volume Laterality 03/14/2006 9:08 AM SUBCONTRACT MANAGER Pauline ANDREC LAB_1 Performing Organization Address City/[facility]/ZIP Code Phon e Number HP CONVERSION GT (Gamma GT) (03/14/2006 9:08 AM SUBCONTRACT MANAGER) athologist Signature Gamma-Glutamyl 37 5 - 85 U/L HP CONVERSION Transferase Specimen (Source) Anatomical Collection Method Collection Time Re ceived Time Location / / Volume Laterality 03/14/2006 9:08 AM SUBCONTRACT MANAGER Pauline العراقي-C LAB_1 Performing Organization Address City/[facility]/ZIP Code Phon e Number HP CONVERSION Electrolytes (NA, K, CL, Bicarb) (03/14/2006 9:08 AM SUBCONTRACT MANAGER) P athologist Signature Sodium 139 137 - 147 HP CONVERSION mEq/L Potassium 4.0 3.5 - 5.2 HP CONVERSION mEq/L Chloride 101 98 - 110 HP CONVERSION mEq/L Bicarbonate 30 23 - 33 HP CONVERSION mmol/L Specimen (Source) Anatomical Collection Method Collection Time Re ceived Time Location / / Volume Laterality 03/14/2006 9:08 AM SUBCONTRACT MANAGER Pauline Jimenez PA-C LAB_1 Performing Organization Address City/State/ZIP Code Phon e Number HP CONVERSION documented in this encounter Visit Diagnoses Not on filedocumented in this encounter Care Teams Superintendent Landfill Operations Relationship Specialty Start Date End Date Pauline Jimenez PA-C PCP - General 06/17/10 12/12/[address] [place] [address] documented as of this encounter
--- OUTSIDE RECORDS SUMMARY | 2022-02-26 10:53 | XMS_ITS | Encounter Summary ---
:1960 Author Organization [facility] Address [address] [address] Care Team Providers Name Role Phone Pauline Jimenez PA-C Primary Care Provider Encounter Details Date Type Department Care Team Description 11/02/2004 PN Conversion Only [facility]URCH CONVERSION Ashley Jimenez PA-C [address] [place] [phone] (Wo rk) Social History Tobacco Use Types Packs/Day Years Used Date Smoking Tobacco: Never Assessed Sex Assigned at Date Recorded Not on file documented as of this encounter Plan of Treatment Not on filedocumented as of this encounter Procedures Procedure Name Priority Date/Time Associated Comments Diagnosis ELECTROLYTES (NA, K, Routine 11/02/2004 10:58 Res ults for this CL, BICARB) AM CDT procedure are i n the results section. GLUCOSE, WHOLE BLOOD Routine 11/02/2004 10:58 Res ults for this POCT AM CDT procedure are i n the results section. THYROID STIMULATING Routine 11/02/2004 10:58 Resu lts for this HORMONE AM CDT procedure are i n the results section. PROTEIN S ANTIGEN Routine 11/02/2004 10:58 Result s for this FREE AM CDT procedure are i n the results section. PROTEIN C ACTIVITY Routine 11/02/2004 10:58 Resul ts for this AM CDT procedure are i n the results section. FACTOR V LEIDEN BY Routine 11/02/2004 10:58 Resul ts for this PCR AM CDT procedure are i n the results section. ANTITHROMBIN 3 Routine 11/02/2004 10:58 Results f or this ACTIVITY AM CDT procedure are i n the results section. LIPID PANEL AND Routine 11/02/2004 10:58 Results for this DIRECT LDL(IF NEEDED) AM CDT proced ure are in the results section. COMPLETE BLOOD Routine 11/02/2004 10:58 Results f or this COUNT-W/DIFF AM CDT procedure are i n the results section. ALBUMIN/CREAT RATIO Routine 11/02/2004 10:58 Resu lts for this AM CDT procedure are i n the results section. HGB A1C Routine 11/02/2004 10:58 Results for this AM CDT procedure are i n the results section. CK, TOTAL Routine 11/02/2004 10:58 Results for this AM CDT procedure are i n the results section. BUN Routine 11/02/2004 10:58 Results for this AM CDT procedure are i n the results section. INR/PROTIME Routine 11/02/2004 10:58 Results for this AM CDT procedure are i n the results section. documented in this encounter Results INR/Protime (11/02/2004 10:58 AM CDT) P athologist Signature Prothrombin Time 14.9 12.6 - HP CONVERSION 15.0 sec Comment: New prothrombin time reagent in use. ??P T results in seconds are different than with old reagents. INR results are unchanged. INR 1.1 No normal range HP CONVERSION Comment: Recommendations for INR in warfarin ther apy: (Chest, Vol. 119, No. 1, Mar 2000, Suppl ement). Prevention and treatment of venous throm bosis; ? INR 2.0-3.0 Treatment of PE; Prevention of systemic embolism due to prosthetic tissue heart valves, b ileaflet mechanical valves in the aortic position , acute [place], valvular heart disease and atrial fibril lation. Mechanical prosthetic valves, (high risk ). ? INR 2.5-3.5 Prevention of recurrent myocardial infar ct. These recommended ranges serve as guidel jorge. Adjustment outside these ranges may be clinically indicated. Specimen (Source) Anatomical Collection Method Collection Time Re ceived Time Location / / Volume Laterality 11/02/2004 10:58 AM CDT Pauline W Ische PA-C LAB_1 Performing Organization Address City/State/ZIP Code Phon e Number HP CONVERSION (ABNORMAL) Complete Blood Count-W/Diff (11/02/2004 10:58 AM CDT) Patholo gist Method Time Signature White Blood Cell 7.9 3.8 - 11.0 HP CONVERSIO N Count K/cmm Red Blood Cell 5.26 (H) 3.70 - HP CONVERSION Count 5.20 m/cmm Hemoglobin 14.6 11.8 - HP CONVERSION 15.5 gm/dL Hematocrit 44.5 35.0 - HP CONVERSION 46.0 % Mean Corpuscular 84.5 80.0 - HP CONVERSION Volume 100.0 fl Mean Corpuscular 27.8 27.0 - HP CONVERSION Hemoglobin 34.0 pg Mean Corpuscular 32.8 32.0 - HP CONVERSION Hemoglobin Conc 36.5 gm/dL [place] RDW 12.8 11.0 - HP CONVERSION 15.0 % Platelet Count 418 140 - 450 HP CONVERSION k/cmm Differential Auto-Dif No normal HP CONVERSION Verify range Neutrophils 3.4 2.0 - 7.5 HP CONVERSION Absolute Count K/cmm Neutrophil 42.8 (L) 50.0 - HP CONVERSION 75.0 % Lymphocyte % 45.3 (H) 20.0 - HP CONVERSION 40.0 % Monocyte 6.7 5.0 - 14.0 HP CONVERSION % Eosinophil 4.9 0.0 - 6.0 HP CONVERSION % Basophil % 0.3 0.0 - 2.0 HP CONVERSION % Specimen (Source) Anatomical Collection Method Collection Time Re ceived Time Location / / Volume Laterality 11/02/2004 10:58 AM CDT Pauline العراقي-C LAB_1 Performing Organization Address City/State/ZIP Code Phon e Number HP CONVERSION BUN (11/02/2004 10:58 AM CDT) P athologist Signature Blood Urea 17 5 - 26 HP CONVERSION Nitrogen mg/dL Specimen (Source) Anatomical Collection Method Collection Time Re ceived Time Location / / Volume Laterality 11/02/2004 10:58 AM CDT Pauline العراقي-C LAB_1 Performing Organization Address City/State/ZIP Code Phon e Number HP CONVERSION CK, Total (11/02/2004 10:58 AM CDT) P athologist Signature Creatine Kinase 95 0 - 225 HP CONVERSION U/L Specimen (Source) Anatomical Collection Method Collection Time Re ceived Time Location / / Volume Laterality 11/02/2004 10:58 AM CDT Pauline Jimenez MALCOM-C LAB_1 Performing Organization Address [facility] Code Phon e Number HP CONVERSION Electrolytes (NA, K, CL, Bicarb) (11/02/2004 10:58 AM CDT) P athologist Signature Sodium 141 137 - 147 HP CONVERSION meq/L Potassium 3.9 3.5 - 5.2 HP CONVERSION meq/L Chloride 101 98 - 110 HP CONVERSION meq/L Bicarbonate 28 23 - 33 HP CONVERSION mmol/L Specimen (Source) Anatomical Collection Method Collection Time Re ceived Time Location / / Volume Laterality 11/02/2004 10:58 AM CDT Pauline Jimenez MALCOM-C LAB_1 Performing Organization Address [facility] Phon e Number HP CONVERSION (ABNORMAL) Lipid Panel and Direct LDL(If Needed) (11/02/2004 10:58 AM CDT) Patholo gist Method Time Signature Cholesterol/HDL 6.0 No normal HP CONVERSION Ratio Screen range Cholesterol 223 (H) <200 mg/dL HP CONVERSION Comment: Borderline high: 200-239 mg/dL High risk: >240 mg/dL HDL Cholesterol 37 (L) 40 - 60 mg/dL HP CONVERS ION Comment: Desirable: >39 mg/dL Higher risk: <40 mg/dL Triglycerides 273 (H) 0 - 149 mg/dL HP CONVERSIO N Comment: Borderline high: 150-199 mg/dL High risk: 200-499 mg/dL Very high risk: 500 mg/dL or greater LDL Calculated 131 (H) 0 - 130 mg/dL HP CONVERSI ON Comment: Desirable: <130 mg/dL (<100 if diabetes or coronary heart disease) Borderline high: 130-159 mg/dL High risk: >159 mg/dL Specimen (Source) Anatomical Collection Method Collection Time Re ceived Time Location / / Volume Laterality 11/02/2004 10:58 AM CDT Pauline العراقي-C LAB_1 Performing Organization Address [facility]/ZIP Code Phon e Number HP CONVERSION Hgb A1c (11/02/2004 10:58 AM CDT) athologist Signature HGB A1C 6.0 <6.0 % HP CONVERSION Specimen (Source) Anatomical Collection Method Collection Time Re ceived Time Location / / Volume Laterality 11/02/2004 10:58 AM CDT Pauline العراقي-C LAB_1 Performing Organization Address [facility]/ZIP Code Phon e Number HP CONVERSION Thyroid Stimulating Hormone (11/02/2004 10:58 AM CDT) athologist Signature Thyroid 1.84 0.20 - HP CONVERSION Stimulating 4.50 Hormone uIU/mL Specimen (Source) Anatomical Collection Method Collection Time Re ceived Time Location / / Volume Laterality 11/02/2004 10:58 AM CDT Pauline العراقي-C LAB_1 Performing Organization Address [facility] Code Phon e Number HP CONVERSION (ABNORMAL) Protein C Activity (11/02/2004 10:58 AM CDT) athologist Signature Protein C 187 (H) 70 - 130 % HP CONVERSION Chromogen Specimen (Source) Anatomical Collection Method Collection Time Re ceived Time Location / / Volume Laterality 11/02/2004 10:58 AM CDT Pauline العراقي-C LAB_1 Performing Organization Address [facility] Code Phon e Number HP CONVERSION Protein S Antigen Free (11/02/2004 10:58 AM CDT) athologist Signature Protein S 102 65 - 125 % HP CONVERSION Antigen Free Comment: Analyte Specific Reagents (ASRs) are use d in many laboratory tests necessary for standard medical care and generally do not require FDA approval. This test was developed and its performa nce characteristics determined by [facility]. It has not been cleared or approved by [facility] Food and Drug Administration. Specimen (Source) Anatomical Collection Method Collection Time Re ceived Time Location / / Volume Laterality 11/02/2004 10:58 AM CDT Pauline العراقي-C LAB_1 Performing Organization Address [facility] Code Phon e Number HP CONVERSION Factor V Leiden By PCR (11/02/2004 10:58 AM CDT) [facility] Method Time Signature Factor V NEGATIVE No normal HP CONVERSION Leiden (F5) range R506Q Mutation Comment: NEGATIVE: The sample is negative for fac tor V Leiden, R506Q polymorphism. This result has been reviewed and approv ed by Maria Teresa Jaramillo, Ph.D. Interpretive data: TEST INFORMATION: Factor V Leiden by PCR and Fluorescence ?Monitoring, w hole blood The factor V Leiden mutation is the most common genetic risk factor for thrombosis and accounts for greater than 90% of cases with APC resistance. Inheri junior thrombosis due to APC resistance is considered an a utosomal dominant disease; heterozygote carriers of the fa ctor V Leiden polymorphism have an increased risk of t hrombosis of five-to tenfold and homozygotes have a f ifty-to hundredfold increased risk. Estimated pe netrance for homozygotes is close to 80 percent with a reduced penetrance for heterozygotes (approximat ida 12-20 percent). Mutations in other genes or other mutati ons in the factor V gene that may cause APC resista nce and venous thrombosis, are not ruled out. Patient DNA was assayed for the [id number] u Leiden mutation in the factor V gene by polymerase chain reaction (PCR), and fluorescence monitoring using hybrid ization probes. Sensitivity and specificity for detectio n of this mutation is 99.9 percent. The performance characteristics of this test were validated by [employer] The U.[place].Food and Drug Administration (FDA) has not approved or cleared this test. However, FDA approval is currently not r equired for clinical use of this test. The results a re not intended to be used as the sole means for clinical d iagnosis or patient management decisions. [employer] is authorized under Clinical Laboratory Improvement Amendments (CLIA) and by all states to perform high-complexity testin g. Due to the unique nature of genetic test ing, patients should receive pre-test and post-test co unseling. Informed consent is recommended. ??Conse nt forms are available from [employer] upon request or onli ne at [email or web address]. Please communicate to the patient: ??Aft er removing personal identifiers, [employer] may use your sample fo r research or validation purposes according to state a nd federal laws. If you prefer disposal of your sample, p jose call [phone]. This test is performed pursuant to an ag reement with [employer] Specimen (Source) Anatomical Collection Method Collection Time Re ceived Time Location / / Volume Laterality 11/02/2004 10:58 AM CDT Pauline العراقي-C LAB_1 Performing Organization Address [facility] Phon e Number HP CONVERSION Antithrombin 3 Activity (11/02/2004 10:58 AM CDT) Analysis Performed At Patho logist Time Signature Antithrombin 3 111 80 - 120 % HP CONVERSION Chromogenic Specimen (Source) Anatomical Collection Method Collection Time Re ceived Time Location / / Volume Laterality 11/02/2004 10:58 AM CDT Pauline العراقي-C LAB_1 Performing Organization Address [facility] Phon e Number HP CONVERSION [facility] (11/02/2004 10:58 AM CDT) P athologist Signature Length Of Fast 12.0 Hours HP CONVERSION Bedside Blood 97 mg/dL HP CONVERSION Glucose Test Specimen (Source) Anatomical Collection Method Collection Time Re ceived Time Location / / Volume Laterality 11/02/2004 10:58 AM CDT Pauline العراقي-C LAB_1 Performing Organization Address [facility] Phon e Number HP CONVERSION Microalb/Creat Ratio (11/02/2004 10:58 AM CDT) Analysis Performed At Patho logist Time Signature U Creat Random 125 mg/dL HP CONVERSION Microalbumin 18.1 0.0 - 30.0 HP CONVERSION Urine mg/L Microalbumin/Crea 14.5 0.0 - 30.0 HP CONVERSI ON tinine Ratio mg/G Comment: Your result is normal because there is l ittle or no protein in the urine, usually indicating healthy kidneys. Specimen (Source) Anatomical Collection Method Collection Time Re ceived Time Location / / Volume Laterality 11/02/2004 10:58 AM CDT Pauline العراقي-C LAB_1 Performing Organization Address [facility] Phon e Number HP CONVERSION documented in this encounter Visit Diagnoses Not on filedocumented in this encounter Care Teams On Air Director Relationship Specialty Start Date End Date Pauline Jimenez PA-C PCP - General 06/17/10 12/12/[address] [place] [address] documented as of this encounter
--- OUTSIDE RECORDS SUMMARY | 2022-02-26 10:53 | XMS_ITS | Encounter Summary ---
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 GLUCOSE Routine 02/10/2006 10:25 Results for this AM [employer]ER procedure are i n the results section. THYROID STIMULATING Routine 02/10/2006 10:25 Resu lts for this HORMONE AM [employer] P[employer]ER procedure are i n the results section. LIPID PANEL AND Routine 02/10/2006 10:25 Results for this DIRECT LDL(IF NEEDED) AM [employer]AN[employer] PICKER proced ure are in the results section. CREATININE / GFR Routine 02/10/2006 10:25 Results for this AM [employer]ER procedure are i n the results section. COMPLETE BLOOD Routine 02/10/2006 10:25 Results f or this COUNT-W/DIFF AM [employer]ER procedure are i n the results section. HGB A1C Routine 02/10/2006 10:25 Results for this AM [employer]ER procedure are i n the results section. ALT (SGPT) Routine 02/10/2006 10:25 Results for this AM [employer]ER procedure are i n the results section. AST Routine 02/10/2006 10:25 Results for this AM [employer]ER procedure are i n the results section. BUN Routine 02/10/2006 10:25 Results for this AM [employer]ER procedure are i n the results section. ESR Routine 02/10/2006 10:25 Results for this AM [employer]ER procedure are i n the results section. URINALYSIS Routine 02/10/2006 10:16 Results for this ROUTINE(MICRO IF POS) AM [employer]AN[employer] PICKER proced ure are in the results section. URINALYSIS Routine 02/10/2006 10:16 Results for this MICROSCOPIC AM [employer]ER procedure are i n the results section. ALBUMIN/CREAT RATIO Routine 02/10/2006 10:16 Resu lts for this AM [employer]ER procedure are i n the results section. documented in this encounter Results (ABNORMAL) Complete Blood Count-W/Diff (02/10/2006 10:25 AM PEANUT PICKER) [facility] Method Time Signature White Blood Cell 7.1 3.8 - 11.0 HP CONVERSIO N Count K/cmm Red Blood Cell 4.79 3.70 - HP CONVERSION Count 5.20 m/cmm Hemoglobin 13.3 11.8 - HP CONVERSION 15.5 gm/dL Hematocrit 40.2 35.0 - HP CONVERSION 46.0 % Mean Corpuscular 83.8 80.0 - HP CONVERSION Volume 100.0 fl Mean Corpuscular 27.8 27.0 - HP CONVERSION Hemoglobin 34.0 pg Mean Corpuscular 33.2 32.0 - HP CONVERSION Hemoglobin Conc 36.5 gm/dL [place] RDW 14.1 11.0 - HP CONVERSION 15.0 % Platelet Count 322 140 - 450 HP CONVERSION k/cmm Differential Auto-Dif No normal HP CONVERSION Verify range Neutrophils 2.9 2.0 - 7.5 HP CONVERSION Absolute Count K/cmm Neutrophil 41.3 (L) 50.0 - HP CONVERSION 75.0 % Lymphocyte % 46.5 (H) 20.0 - HP CONVERSION 40.0 % Monocyte 7.4 5.0 - 14.0 HP CONVERSION % Eosinophil 4.1 0.0 - 6.0 HP CONVERSION % Basophil % 0.7 0.0 - 2.0 HP CONVERSION % Specimen (Source) Anatomical Collection Method Collection Time Re ceived Time Location / / Volume Laterality 02/10/2006 10:25 AM PEANUT PICKER Pauline ANDREC LAB_1 Performing Organization Address City/State/ZIP Code Phon e Number HP CONVERSION (ABNORMAL) ALT (SGPT) (02/10/2006 10:25 AM PEANUT PICKER) [facility] gist Method Time Signature Alanine 72 (H) 0 - 65 HP CONVERSION Aminotransferase U/L Specimen (Source) Anatomical Collection Method Collection Time Re ceived Time Location / / Volume Laterality 02/10/2006 10:25 AM PEANUT PICKER Pauline العراقي-C LAB_1 Performing Organization Address City/State/ZIP Code Phon e Number HP CONVERSION AST (02/10/2006 10:25 AM PEANUT PICKER) [facility] gist Method Time Signature Aspartate 32 0 - 45 HP CONVERSION Aminotransferase U/L Specimen (Source) Anatomical Collection Method Collection Time Re ceived Time Location / / Volume Laterality 02/10/2006 10:25 AM PEANUT PICKER Pauline [facility]REC LAB_1 Performing Organization Address City/State/ZIP Code Phon e Number HP CONVERSION BUN (02/10/2006 10:25 AM PEANUT PICKER) athologist Signature Blood Urea 26 5 - 26 HP CONVERSION Nitrogen mg/dL Specimen (Source) Anatomical Collection Method Collection Time Re ceived Time Location / / Volume Laterality 02/10/2006 10:25 AM PEANUT PICKER Pauline [facility]REC LAB_1 Performing Organization Address City/State/ZIP Code Phon e Number HP CONVERSION Creatinine / GFR (02/10/2006 10:25 AM PEANUT PICKER) athologist Signature Creatinine 1.0 0.5 - 1.5 HP CONVERSION Serum mg/dL Specimen (Source) Anatomical Collection Method Collection Time Re ceived Time Location / / Volume Laterality 02/10/2006 10:25 AM PEANUT PICKER Pauline العراقي-C LAB_1 Performing Organization Address City/State/ZIP Code Phon e Number HP CONVERSION Glucose (02/10/2006 10:25 AM PEANUT PICKER) athologist Signature Lab Glucose 91 60 - 100 HP CONVERSION mg/dL Specimen (Source) Anatomical Collection Method Collection Time Re ceived Time Location / / Volume Laterality 02/10/2006 10:25 AM PEANUT PICKER Pauline [facility]REC LAB_1 Performing Organization Address City/State/ZIP Code Phon e Number HP CONVERSION (ABNORMAL) Electrolytes (NA, K, CL, Bicarb) (02/10/2006 10:25 AM PEANUT PICKER) P athologist Signature Sodium 136 (L) 137 - 147 HP CONVERSION meq/L Potassium 3.9 3.5 - 5.2 HP CONVERSION meq/L Chloride 97 (L) 98 - 110 HP CONVERSION meq/L Bicarbonate 28 23 - 33 HP CONVERSION mmol/L Specimen (Source) Anatomical Collection Method Collection Time Re ceived Time Location / / Volume Laterality 02/10/2006 10:25 AM PEANUT PICKER Pauline [facility]REC LAB_1 Performing Organization Address City/[facility]/ZIP Code Phon e Number HP CONVERSION (ABNORMAL) Lipid Panel and Direct LDL(If Needed) (02/10/2006 10:25 AM PEANUT PICKER) [facility] gist Method Time Signature Cholesterol/HDL 4.5 No normal HP CONVERSION Ratio Screen range Cholesterol 216 (H) <200 mg/dL HP CONVERSION HDL Cholesterol 48 40 - 60 HP CONVERSION mg/dL Triglycerides 198 (H) 0 - 149 HP CONVERSION mg/dL LDL Calculated 128 0 - 130 HP CONVERSION mg/dL Comment: Specimen (Source) Anatomical Collection Method Collection Time Re ceived Time Location / / Volume Laterality 02/10/2006 10:25 AM PEANUT PICKER Pauline [facility]REC LAB_1 Performing Organization Address City/State/ZIP Code Phon e Number HP CONVERSION Hgb A1c (02/10/2006 10:25 AM PEANUT PICKER) P athologist Signature HGB A1C 5.8 <6.0 % HP CONVERSION Specimen (Source) Anatomical Collection Method Collection Time Re ceived Time Location / / Volume Laterality 02/10/2006 10:25 AM PEANUT PICKER Pauline العراقي-C LAB_1 Performing Organization Address City/[facility]/ZIP Code Phon e Number HP CONVERSION Thyroid Stimulating Hormone (02/10/2006 10:25 AM PEANUT PICKER) P athologist Signature Thyroid 2.11 0.20 - HP CONVERSION Stimulating 4.50 Hormone uIU/mL Specimen (Source) Anatomical Collection Method Collection Time Re ceived Time Location / / Volume Laterality 02/10/2006 10:25 AM PEANUT PICKER Pauline [facility]REC LAB_1 Performing Organization Address [facility] Phon e Number HP CONVERSION ESR (02/10/2006 10:25 AM PEANUT PICKER) [facility] Method Time Signature Sedimentation Rate 16 0 - 20 HP CONVERSI ON mm/Hr Specimen (Source) Anatomical Collection Method Collection Time Re ceived Time Location / / Volume Laterality 02/10/2006 10:25 AM PEANUT PICKER Pauline العراقي-C LAB_1 Performing Organization Address [facility] Phon e Number HP CONVERSION Urinalysis Routine(Micro If Pos) (02/10/2006 10:16 AM PEANUT PICKER) [facility] Method Time Signature Turbidity Clear No normal HP CONVERSION range pH Urine 7.0 4.5 - 7.5 HP CONVERSION Protein Urine Negative Neg-Trac HP CONVERSION Glucose, Negative Neg-Trac HP CONVERSION Qualitative U Ketones Negative Negative HP CONVERSION U BILI Negative Negative HP CONVERSION Blood Urine Negative Negative HP CONVERSION Nitrite Urine Negative Negative HP CONVERSION Leukocyte Negative Negative HP CONVERSION Esterase Urine Urobilinogen Negative 0.2 - 1.0 HP CONVERSION Urine U Specific 1.010 1.005 - 25 HP CONVERSION [place] Specimen (Source) Anatomical Collection Method Collection Time Re ceived Time Location / / Volume Laterality 02/10/2006 10:16 AM PEANUT PICKER Pauline [facility]REC LAB_1 Performing Organization Address [facility] Phon e Number HP CONVERSION (ABNORMAL) Urinalysis Microscopic (02/10/2006 10:16 AM PEANUT PICKER) [facility] Method Time Signature White Blood 0-2/HPF 0 - 3 HP CONVERSION Cells Urine Red Blood Negative 0 - 2 HP CONVERSION Cells Urine Bacteria Urine Occassnl (A) None HP CONVERSIO N Epithelial Few Few /HPF HP CONVERSION Cells Specimen (Source) Anatomical Collection Method Collection Time Re ceived Time Location / / Volume Laterality 02/10/2006 10:16 AM PEANUT PICKER Pauline العراقي-C LAB_1 Performing Organization Address [facility]/ZIP Code Phon e Number HP CONVERSION (ABNORMAL) Microalb/Creat Ratio (02/10/2006 10:16 AM PEANUT PICKER) [facility] gist Method Time Signature U Creat Random 14 mg/dL HP CONVERSION Microalbumin 5.2 0.0 - HP CONVERSION Urine 30.0 mg/L Microalbumin/Cre 37.1 (H) 0.0 - HP CONVERSION atinine Ratio 30.0 mg/G Comment: You have microalbuminuria, which is a sm all amount of protein in the urine, but more than normal, usually indicating early kidney changes. Specimen (Source) Anatomical Collection Method Collection Time Re ceived Time Location / / Volume Laterality 02/10/2006 10:16 AM PEANUT PICKER Pauline Jimenez PA-C LAB_1 Performing Organization Address City/State/ZIP Code Phon e Number HP CONVERSION documented in this encounter Visit Diagnoses Not on filedocumented in this encounter Care Teams Filling Machine Set Up Mechanic Relationship Specialty Start Date End Date Pauline Jimenez PA-C PCP - General 06/17/10 12/12/14 [address] [place] [address] documented as of this encounter
--- OUTSIDE RECORDS SUMMARY | 2022-02-26 10:53 | XMS_ITS | Encounter Summary ---
:1960 Author Organization [facility] Address [address] [place] [address] Care Team Providers Name Role Phone Pauline Jimenez PA-C Primary Care Provider Reason for Visit Reason Comments Other Encounter Details Date Type Department Care Team Description 11/25/2005 Telephone [facility], Message Other [address] [place] [address] Social History Tobacco Use Types Packs/Day Years Used Date Smoking Tobacco: Never Assessed Sex Assigned at Date Recorded Not on file documented as of this encounter [facility], Message - 11/25/2005 9:42 AM CDT Phone Note filed by Entitle at 07/03/10832 Author: Entitle Service: (none) Author Type: (none) Filed: 07/03/10832 Note Time: 11/25/05941 Status: Signed Supervisor Vegetable Farming: Entitle PRESCRIPTION REFILL Request #1: Please provide enough refills to last until patient's next visit. Comment:- Pharmacy Seq #:-64 Pharmacy Name:-[facility] [address] Street or City:[facility] Clinician Name:-Jenna Drug Name/Strength:-Triamt/HCTZ 75-50mg tabs. Sig: Dose/Route/Freq:-Take 1 tab every day. Quantity & Last Fill:-31 09/23/05 - PRESCRIPTION REFILL Request #2: Comment:- Drug Name/Strength:-Zoloft 100mg tabs. Sig: Dose/Route/Freq:-Take 1 and 0.5 tabs every day., Quantity & Last Fill:-45 09/23/05 Created on 25Nov2005 9:42am by LISA AGUILAR J On 25Nov2005 3:41pm MOHSEN SULTANA wrote: REFILL APPOINTMENT NEEDED Please call patient and schedule appointment within 30 days. Medication has been renewed and faxed to pharmacy for 30 day supply only, per protocol. Comment:-Annual Well Exam due--Instruct pt to come in FASTING for labwork also. On 25Nov2005 4:09pm TONIA JARAMILLO wrote: left message on voice mail [employer] documented in this encounter Plan of Treatment Not on filedocumented as of this encounter Visit Diagnoses Not on filedocumented in this encounter Care Teams Z Os Mainframe Systems Programmer Relationship Specialty Start Date End Date Pauline Jimenez PA-C PCP - General 06/17/10 12/12/14 [address] [place] [address] documented as of this encounter
--- OUTSIDE RECORDS SUMMARY | 2022-02-26 10:53 | XMS_ITS | Encounter Summary ---
:1960 Author Organization [facility] Address [address] [address] Care Team Providers Name Role Phone Qasim Jimenez PA-C Primary Care Provider Reason for Visit Reason Comments Other Encounter Details Date Type Department Care Team Description 10/18/2005 Telephone [facility] sandraramirez Qasim Jimenez PA-C Other [address] [facility] [address] [place] [address] [place] [address] [phone] (Wo rk) Social History Tobacco Use Types Packs/Day Years Used Date Smoking Tobacco: Never Assessed Sex Assigned at Date Recorded Not on file documented as of this encounter Progress Notes Avril Rose - 10/18/2005 11:02 AM CDT Phone Note filed by Avril Rose RN at 07/03/10710 Author: Avril Rose RN Service: (none) Author Type: Registered Nurse Filed: 07/03/10710 Note Time: 10/18/051101 Status: Signed Hvac Instructor: Avril Rose RN (Registered Nurse) Natalie (sister and conservator) is calling for Kishore's lab results from 10/11. Please call her at:[phone]...detailed message is ok. Created on 18Oct2005 11:02am by AVRIL ROSE On 18Oct2005 12:21pm QASIM MAY wrote: LV with details of lab results. Her results should be in the mail. Acknowledged by QASIM MAY on 12:21pm LICENSED NUCLEAR PLANT OPERATOR documented in this encounter Plan of Treatment Not on filedocumented as of this encounter Visit Diagnoses Not on filedocumented in this encounter Care Teams Orthopedic Shoes Salesperson Relationship Specialty Start Date End Date Qasim Jimenez PA-C PCP - General 06/17/10 12/12/[address] [place] [address] documented as of this encounter
--- OUTSIDE RECORDS SUMMARY | 2022-02-26 10:53 | XMS_ITS | Encounter Summary ---
:1960 Author Organization [facility] Address [address] [address] Care Team Providers Name Role Phone Pauline Jimenez PA-C Primary Care Provider Encounter Details Date Type Department Care Team Description 04/30/2004 Office Visit [facility] rochelle Pauline Jimenez PA-C [address] [facility] [address] [place] [address] [place] [address] [phone] (Wo rk) Social History Tobacco Use Types Packs/Day Years Used Date Smoking Tobacco: Never Assessed Sex Assigned at Date Recorded Not on file documented as of this encounter Progress Notes Pauline Jimenez PA-C - 04/30/2004 12:01 AM CST Progress Notes signed by Pauline Jimenez PA-C at 04/30/04 1511 Author: Pauline West PA-C Service: (none) Author Type: Physician Bottle Carrier Filed: 07/06/100 Note Time: 04/30/04 0001 Status: Signed Supervisor Instant Potato Processing: Pauline West PA-C (Physician Bottle Carrier) Acute Clinic Visit IMPRESSION: Acute Sinusitis SUBJECTIVE: Chief Complaint: URI symptoms History of Present Illness: Illness duration: 1 week Patient has felt feverish but hasn't taken temperature. Symptoms worsening Fatigue Headache No eye pain Ear pain Sneezing Nasal congestion/rhinorrhea Post-nasal drainage Sinus pain Sore throat No neck stiffness Cough Productive cough Disrupted sleep No chest pain No shortness of breath No wheezing No nausea No vomiting No abdominal pain Meds This Illness: Acetaminophen Sudafed Past History: No history of recurrent strep throats No history of recurrent sore throats Smoking: No Patient is not . Adverse Drug Reactions: Patient's ADR's were reviewed and updated today on the Health Profile screen of [facility] Chronic Medications: reviewed and updated today on Health Profile in [facility]. OBJECTIVE: Vital Signs: T: 97.8 degrees F. P: 64 R: 16 BP: 140/92 Weight: 123 lbs. General Appearance: Mildly ill-appearing Eyes: External exam is normal bilaterally Left ear: Canal: normal, TM: dull, retracted Right ear: Canal: normal, TM: dull, retracted Nose/Sinuses: moderately congested, purulent drainage, sinuses tender to percussion Oropharynx: pharynx erythematous Neck: anterior adenopathy Respiratory: Lung sounds clear to auscultation without respiratory distress Cardiac: RRR without murmur Abdomen: Normal abdominal exam without tenderness or organomegaly Skin: Skin exam normal Lab & X-Ray: None ASSESSMENT: Acute Sinusitis PLAN: Prescriptions provided, see OP Med list on Health Profile in [facility]. Symptomatic care Acetaminophen Ibuprofen Oral Decongestants Nutritious liquids Sinus Irrigation: Patient instructed and pamphlet provided Rest at home Patient was given discharge instructions and was discharged in stable condition. RTC PRN if not gradually improving *SH~PC~URIL ~[facility] Note completed on: 04/30/2004 3:11 PM PROFESSIONAL documented in this encounter Plan of Treatment Not on filedocumented as of this encounter Visit Diagnoses Not on filedocumented in this encounter Care Teams Regional Planner Relationship Specialty Start Date End Date Pauline Jimenez PA-C PCP - General 06/17/10 12/12/14 [address] [place] [address] documented as of this encounter
--- OUTSIDE RECORDS SUMMARY | 2022-02-26 10:53 | XMS_ITS | Encounter Summary ---
:1960 Author Organization [facility] Address [address] [address] Care Team Providers Name Role Phone Barbara Pauline Malone PA-C Primary Care Provider Encounter Details Date Type Department Care Team Description 03/01/2005 PN Conversion Only [facility] [address] [place] [address] Social History Tobacco Use Types Packs/Day Years Used Date Smoking Tobacco: Never Assessed Sex Assigned at Date Recorded Not on file documented as of this encounter Plan of Treatment Not on filedocumented as of this encounter Procedures Procedure Name Priority Date/Time Associated Diagnosis Comme nts US ABD RUQ ORGANS Routine 03/01/2005 9:27 AM Resu lts for this CLINIC CLERK procedure are i n the results section. documented in this encounter Results US Abd RUQ Organs (03/01/2005 9:27 AM CLINIC CLERK) Anatomical Region Laterality Modality Abdomen Other Specimen (Source) Anatomical Location Collection Method / Collectio n Time Received Time / Laterality Volume Narrative 03/01/2005 9:27 AM CLINIC CLERK Gallbladder has been removed. ??Common bile duct measures 4.4 mm, which is normal. ??Visualized portions o f the liver and pancreas unremarkable. ??Right kidney is unobstru cted. CONCLUSION: ??Negative right upper quadr ant ultrasound, status post cholecystectomy. [id number] Dictating CRISTOBAL BELL MD Procedure Note Cristobal Pinedo - 05/18/2016 Gallbladder has been removed. Common guanako e duct measures 4.4 mm, which is normal. Visualized portions of the liver and pancreas unremarkable. Right kidney is unobstruct ed. CONCLUSION: Negative right upper quadran t ultrasound, status post cholecystectomy. [id number] Dictating CRISTOBAL BELL MD Pauline Jimenez PA-C RAD US documented in this encounter Visit Diagnoses Not on filedocumented in this encounter Care Teams Manager Test Relationship Specialty Start Date End Date Pauline Jimenez PA-C PCP - General 06/17/10 12/12/[address] [place] [address] documented as of this encounter
--- OUTSIDE RECORDS SUMMARY | 2022-02-26 10:53 | XMS_ITS | Encounter Summary ---
:1960 Author Organization [facility] Address [address] [place] [address] Care Team Providers Name Role Phone Barbara Pauline Malone PA-C Primary Care Provider Reason for Visit Reason Comments Other Encounter Details Date Type Department Care Team Description 01/06/2006 Telephone [facility] Chelsey Brito [address] [place] [address] Social History Tobacco Use Types Packs/Day Years Used Date Smoking Tobacco: Never Assessed Sex Assigned at Date Recorded Not on file documented as of this encounter [facility], Message - 01/06/2006 9:13 AM CDT Phone Note filed by AVOS Cloud at 07/03/10 1002 Author: AVOS Cloud Service: (none) Author Type: (none) Filed: 07/03/10 1002 Note Time: 01/06/06912 Status: Signed Flat Sheet Maker: AVOS Cloud Prior Authorization or Change Medications? Pharmacy Seq #:64 Pharmacy Name & Phone #:[facility] Street/City:[place] Comment:This medication requires a PA. Paid Prescriptions [phone] Clinician Name:Ashley West Drug Name/Strength:Lexapro 20MG Sig:take one tab daily Formulary Alternative Meds from Pharmacy: Created on 06Jan2006 9:13am by KATYA TORRES On 06Jan2006 11:23am CHELSEY SKAGGS wrote: in box Acknowledged by CHELSEY SKAGGS on 11:23am ANALYST documented in this encounter Plan of Treatment Not on filedocumented as of this encounter Visit Diagnoses Not on filedocumented in this encounter Care Teams Document Preparer Microfilming Relationship Specialty Start Date End Date Pauline Jimenez PA-C PCP - General 06/17/10 12/12/[address] [place] [address] documented as of this encounter
--- OUTSIDE RECORDS SUMMARY | 2022-02-26 10:53 | XMS_ITS | Encounter Summary ---
:1960 Author Organization [facility] Address [address], [place] [address] Care Team Providers Name Role Phone Qasim Jimenez PA-C Primary Care Provider Reason for Visit Reason Comments Other Encounter Details Date Type Department Care Team Description 12/17/2005 Telephone [facility] sandraramirez Qasim Jimenez PA-C Other [address] [facility] [address] [place] [address] [place] [address] [phone] (Wo rk) Social History Tobacco Use Types Packs/Day Years Used Date Smoking Tobacco: Never Assessed Sex Assigned at Date Recorded Not on file documented as of this encounter [facility], Message - 12/17/2005 9:40 AM CDT Phone Note filed by NetMinder at 07/03/10922 Author: NetMinder Service: (none) Author Type: (none) Filed: 07/03/10922 Note Time: 12/17/05939 Status: Signed Metal Refiner: NetMinder Prescription Refill Please provide enough refills to last until patient's next visit. Comment:-Appt on Jan 03 Pharmacy Seq #:-64 Pharmacy Name:-[facility] Street or City:-[place] Clinician Name:Maxx May Drug Name/Strength:-Triamt/HCTZ 75-50mg tab Sig: Dose/Route/Freq:-take one tab daily Quantity & Last Fill:-30 11/25/05 Created on 17Dec2005 9:40am by KATYA TORRES On 18Dec2005 12:27pm RD MOHSEN Jones wrote: Unable to refill per Medical Refill Protocol Comment:It has been >13 months since last well exam/labs. Pt does have well exam scheduled 01/03/06. Please address. Thanks. On 18Dec2005 12:56pm QASIM MAY wrote: Rx faxed. Acknowledged by QASIM MAY on 12:56pm ORARY RECEPTIONIST documented in this encounter Plan of Treatment Not on filedocumented as of this encounter Visit Diagnoses Not on filedocumented in this encounter Care Teams X Ray Examiner Of Aircraft Relationship Specialty Start Date End Date Qasim Jimenez PA-C PCP - General 06/17/10 12/12/14 [address] [place] [address] documented as of this encounter
--- OUTSIDE RECORDS SUMMARY | 2022-02-26 10:53 | XMS_ITS | Encounter Summary ---
:1960 Author Organization [facility] Address [address], [place] [address] Care Team Providers Name Role Phone Qasim Jimenez PA-C Primary Care Provider Reason for Visit Reason Comments Other Encounter Details Date Type Department Care Team Description 11/08/2004 Telephone [facility] sandraramirez Qasim Jimenez PA-C Other [address] [facility] [address] [place] [address] [place] [address] [phone] (Wo rk) Social History Tobacco Use Types Packs/Day Years Used Date Smoking Tobacco: Never Assessed Sex Assigned at Date Recorded Not on file documented as of this encounter Progress Avril Enamorado - 11/08/2004 11:02 AM CDT Phone Note filed by Avril Rose RN at 07/02/102008 Author: Avril Rose RN Service: (none) Author Type: Registered Nurse Filed: 07/02/102008 Note Time: 11/08/041101 Status: Signed Position Classifier: Avril Rose RN (Registered Nurse) Natalie(sister) is calling for her sister who is deaf. Natalie has a question. She states she wasn't paying that much attention at her sister's appt. on 11/02, and now she has a question on why you added atenolol 25mg along with her triam/HCTZ? (she wondered if the other medication could have been increased instead, if BP still too high-and she didn;t think her BP was very high) Please call her at work to clarify:[phone]....detailed message ok. Created on 08Nov2004 11:02am by AVRIL ROSE R On 08Nov2004 11:16am QASIM MAY wrote: I was under the impression that she had been taking this medication all along. It was initially prescribed in May of 2003 and had refills for one year. Acknowledged by QASIM MAY on 11:16am On 08Nov2004 11:41am LIDIA ROSARIO wrote: Message left for Natalie with the above information. Also given the number to call back. Acknowledged by LIDIA ROSARIO on 11:41am On 08Nov2004 11:53am LIDIA ROSARIO wrote: Natalie called back, states the pt hasn't been on Atenolal since 2002. Per Qasim, Can toss the Rx for the Atenolol at this time. Natalie states she will monitor pt's BP will call back as needed. Acknowledged by LIDIA ROSARIO on 11:53am Acknowledged by QASIM MAY on 12:08pm LASS FRAMES POLISHER documented in this encounter Plan of Treatment Not on filedocumented as of this encounter Visit Diagnoses Not on filedocumented in this encounter Care Teams Architectural Intern Relationship Specialty Start Date End Date Qasim Jimenez PA-C PCP - General 06/17/10 12/12/[address] [place] [address] documented as of this encounter
--- OUTSIDE RECORDS SUMMARY | 2022-02-26 10:53 | XMS_ITS | Encounter Summary ---
:1960 Author Organization [facility] Address [address] [address] Care Team Providers Name Role Phone Qasim Jimenez PA-C Primary Care Provider Reason for Visit Reason Comments Other Encounter Details Date Type Department Care Team Description 01/23/2006 Telephone [facility] Qasim Mulligan PA-C Other [address] [facility] [address] [place] [address] [place] [address] [phone] (Wo rk) Social History Tobacco Use Types Packs/Day Years Used Date Smoking Tobacco: Never Assessed Sex Assigned at Date Recorded Not on file documented as of this encounter [facility], Message - 01/23/2006 3:03 PM CST Phone Note filed by Unight at 07/03/10 104 Author: Message Celletra Service: (none) Author Type: (none) Filed: 07/03/10 1042 Note Time: 01/23/06 1503 Status: Signed Quality Assurance Monitor: Message Center MESSAGE TO CARE TEAM NAME OF CALLER:Natalie/Sister/Guardian NAME OF CLINICIAN:Qasim May MESSAGE:Pt is on Lexapro/Insurance provider refusing to pay for this medication/Is there something else she can use?/Please contact Natalie PHARMACY NAME: PHARMACY PHONE #: CALL BACK PHONE #:[phone] Home BEST TIME TO CALL BACK:Any time Is it OK to leave detailed message on voicemail? Yes Created on 23Jan2006 3:03pm by MILAGROS GUIDO On 23Jan2006 3:05pm GERARDO SKAGGS wrote: Is there anything else, or do you want me to fill out a PA? On 23Jan2006 4:13pm QASIM MAY wrote: Rx for Celexa faxed to [facility] in [place] per Natalie's request. Acknowledged by QASIM MAY on 4:13pm K CHIMNEY SUPERVISOR documented in this encounter Plan of Treatment Not on filedocumented as of this encounter Visit Diagnoses Not on filedocumented in this encounter Care Teams Die Casting Machine Maintainer Relationship Specialty Start Date End Date Qasim Jimenez, SARIKA PCP - General 06/17/10 12/12/14 [address] [place] [address] documented as of this encounter
--- OUTSIDE RECORDS SUMMARY | 2022-02-26 10:53 | XMS_ITS | Encounter Summary ---
:1960 Author Organization [facility] Address [address], [place] [address] Care Team Providers Name Role Phone Pauline Jimenez PA-C Primary Care Provider Encounter Details Date Type Department Care Team Description 11/04/2005 PN Conversion Only [facility] Ashley Jimenez PA-C [address] [place] [address] (Wo rk) Social History Tobacco Use Types Packs/Day Years Used Date Smoking Tobacco: Never Assessed Sex Assigned at Date Recorded Not on file documented as of this encounter Plan of Treatment Not on filedocumented as of this encounter Procedures Procedure Name Priority Date/Time Associated Diagnosis Comme nts ALT (SGPT) Routine 11/04/2005 9:00 AM Results f or this CDT procedure are i n the results section. AST Routine 11/04/2005 9:00 AM Results f or this CDT procedure are i n the results section. BILIRUBIN, TOTAL Routine 11/04/2005 9:00 AM Resul ts for this CDT procedure are i n the results section. ALKALINE Routine 11/04/2005 9:00 AM Results f or this PHOSPHATASE, TOTAL CDT procedure are in the results section. documented in this encounter Results Alkaline Phosphatase, Total (11/04/2005 9:00 AM CDT) P athologist Signature Alk Phos 81 50 - 136 U/L HP CONVERSION Specimen (Source) Anatomical Collection Method Collection Time Re ceived Time Location / / Volume Laterality 11/04/2005 9:00 AM CDT Pauline العراقي-C LAB_1 Performing Organization Address [facility] Phon e Number HP CONVERSION ALT (SGPT) (11/04/2005 9:00 AM CDT) [facility] gist Method Time Signature Alanine 61 0 - 65 HP CONVERSION Aminotransferase U/L Specimen (Source) Anatomical Collection Method Collection Time Re ceived Time Location / / Volume Laterality 11/04/2005 9:00 AM CDT Pauline العراقي-C LAB_1 Performing Organization Address City/[facility] Phon e Number HP CONVERSION AST (11/04/2005 9:00 AM CDT) [facility] gist Method Time Signature Aspartate 26 0 - 45 HP CONVERSION Aminotransferase U/L Specimen (Source) Anatomical Collection Method Collection Time Re ceived Time Location / / Volume Laterality 11/04/2005 9:00 AM CDT Pauline Jimenez PA-C LAB_1 Performing Organization Address [facility] Phon e Number HP CONVERSION Bilirubin, Total (11/04/2005 9:00 AM CDT) P athologist Signature Bilirubin Total 0.5 0.2 - 1.2 HP CONVERSION mg/dL Specimen (Source) Anatomical Collection Method Collection Time Re ceived Time Location / / Volume Laterality 11/04/2005 9:00 AM CDT Pauline Jimenez MALCOM-C LAB_1 Performing Organization Address [facility] Phon e Number HP CONVERSION documented in this encounter Visit Diagnoses Not on filedocumented in this encounter Care Teams Beveling Machine Operator Relationship Specialty Start Date End Date ShoaibaminataPauline PA-C PCP - General 06/17/10 12/12/14 [address] [place] [address] documented as of this encounter
--- OUTSIDE RECORDS SUMMARY | 2022-02-26 10:54 | XMS_ITS | Encounter Summary ---
:1960 Author Organization [facility] Address [address] [place] [address] Care Team Providers Name Role Phone Pauline Jimenez PA-C Primary Care Provider Encounter Details Date Type Department Care Team Description 12/02/2003 Office Visit [facility] Chiu, PT Therapy [address] [facility] [address] [place] [address] [place] [address] [phone] Social History Tobacco Use Types Packs/Day Years Used Date Smoking Tobacco: Never Assessed Sex Assigned at Date Recorded Not on file documented as of this encounter Plan of Treatment Not on filedocumented as of this encounter Visit Diagnoses Not on filedocumented in this encounter Care Teams Time Signal Wirer Relationship Specialty Start Date End Date Pauline Jimenez PA-C PCP - General 06/17/10 12/12/[address] [place] [address] documented as of this encounter
--- OUTSIDE RECORDS SUMMARY | 2022-02-26 10:54 | XMS_ITS | Encounter Summary ---
:1960 Author Organization [facility] Address [address], [place] [address] Care Team Providers Name Role Phone Pauline Jimenez PA-C Primary Care Provider Encounter Details Date Type Department Care Team Description 07/21/2003 PN Conversion Only [facility] Ashley Jimenez PA-C [address] [place] [address] (Wo rk) Social History Tobacco Use Types Packs/Day Years Used Date Smoking Tobacco: Never Assessed Sex Assigned at Date Recorded Not on file documented as of this encounter Plan of Treatment Not on filedocumented as of this encounter Procedures Procedure Name Priority Date/Time Associated Diagnosis Comme nts INR/PROTIME Routine 07/21/2003 4:21 PM Results f or this CDT procedure are i n the results section . documented in this encounter Results (ABNORMAL) INR/Protime (07/21/2003 4:21 PM CDT) [facility] Method Time Signature Prothrombin 20.4 (H) 8.9 - 11.1 HP CONVERSION Time sec INR 2.0 No normal HP CONVERSION range Comment: Recommendations for INR in warfarin ther apy: (Chest, Vol. 119, No. 1, Mar 2000, Suppl ement). Prevention and treatment of venous throm bosis; ? INR 2.0-3.0 Treatment of PE; Prevention of systemic embolism due to prosthetic tissue heart valves, b ileaflet mechanical valves in the aortic position , acute NV, valvular heart disease and atrial fibril lation. Mechanical prosthetic valves, (high risk ). ? INR 2.5-3.5 Prevention of recurrent myocardial infar ct. These recommended ranges serve as guidel jorge. Adjustment outside these ranges may be clinically indicated. Specimen (Source) Anatomical Collection Method Collection Time Re ceived Time Location / / Volume Laterality 07/21/2003 4:21 PM CDT Pauline Jimenez PA-C LAB_1 Performing Organization Address City/State/ZIP Code Phon e Number HP CONVERSION documented in this encounter Visit Diagnoses Not on filedocumented in this encounter Care Teams Mail Machine Operator Relationship Specialty Start Date End Date Pauline Jimenez PA-C PCP - General 06/17/10 12/12/[address] [place] [address] documented as of this encounter
--- OUTSIDE RECORDS SUMMARY | 2022-02-26 10:54 | XMS_ITS | Encounter Summary ---
:1960 Author Organization [facility] Address [address], [place] [address] Care Team Providers Name Role Phone Pauline Jimenez PA-C Primary Care Provider Encounter Details Date Type Department Care Team Description 06/21/2003 PN Conversion Only [facility] CONVERSION Trenton Zamora, TONSORIAL ARTIST, BLACKJACK SUPERVISOR [address] [phone] (Wo rk) Social History Tobacco Use Types Packs/Day Years Used Date Smoking Tobacco: Never Assessed Sex Assigned at Date Recorded Not on file documented as of this encounter Plan of Treatment Not on filedocumented as of this encounter Visit Diagnoses Not on filedocumented in this encounter Care Teams Steward/Stewardess Chief Cargo Vessel Relationship Specialty Start Date End Date Pauline Jimenez PA-C PCP - General 06/17/10 12/12/[address] [place] [id number] documented as of this encounter
--- OUTSIDE RECORDS SUMMARY | 2022-02-26 10:54 | XMS_ITS | Encounter Summary ---
:1960 Author Organization [facility] Address [address] [place] [id number] Care Team Providers Name Role Phone Barbara Pauline Malone PA-C Primary Care Provider Encounter Details Date Type Department Care Team Description 11/02/2003 PN Conversion Only [facility] [address] [place] [address] Social History Tobacco Use Types Packs/Day Years Used Date Smoking Tobacco: Never Assessed Sex Assigned at Date Recorded Not on file documented as of this encounter Plan of Treatment Not on filedocumented as of this encounter Procedures Procedure Name Priority Date/Time Associated Diagnosis Comme nts MM MAMMOGRAM Routine 11/02/2003 7:39 PM Results f or this SCREENING W CAD CDT procedure ar e in the results section. documented in this encounter Results MM Mammogram Screening W CAD (11/02/2003 7:39 PM CDT) Anatomical Region Laterality Modality Breast Bilateral Mammography Specimen (Source) Anatomical Location Collection Method / Collectio n Time Received Time / Laterality Volume Impressions 11/07/2003 8:15 AM CDT : LEFT BREAST - CATEGORY 2 A round ??mass in the subareolar region. Benign, no evidence of malignancy. Normal interval follow-up is recommended in 12 months. RIGHT BREAST - CATEGORY 1 Negative, no evidence of malignancy. Nor mal interval follow-up is recommended in 12 months. OVERALL ASSESSMENT - BENIGN END OF IMPRESSION Dictating WILFRID MACIAS RADIOLOGIST Narrative 11/07/2003 8:15 AM CDT Comparison is made to films from 04/24/2002. ??There is no significant interval change. Left Breast Findings: The breast is almost entirely fat. ??A r ound mass with circumscribed margin is present in the subareolar kalpana on. Right Breast Findings: The breast is almost entirely fat. ??No significant masses, calcifications or other abnormalities ar e seen. Procedure Note Wilfrid Neumann - 05/18/2016Formattin g of this note might be different from the original. Comparison is made to films from 003. There is no significant interval change. Left Breast Findings: The breast is almost entirely fat. A rou nd mass with circumscribed margin is present in the subareolar kalpana on. Right Breast Findings: The breast is almost entirely fat. No si gnificant masses, calcifications or other abnormalities ar e seen. IMPRESSION : LEFT BREAST - CATEGORY 2 A round mass in the subareolar region. B enign, no evidence of malignancy. Normal interval follow-up is recommended in 12 months. RIGHT BREAST - CATEGORY 1 Negative, no evidence of malignancy. Nor mal interval follow-up is recommended in 12 months. OVERALL ASSESSMENT - BENIGN END OF IMPRESSION Dictating WILFRID MACIAS RADIOLOGIST Pauline Jimenez PA-C RAD SONYA documented in this encounter Visit Diagnoses Not on filedocumented in this encounter Care Teams Tractor Mechanic Helper Relationship Specialty Start Date End Date Pauline Jimenez PA-C PCP - General 06/17/10 12/12/14 [address] [place] [address] documented as of this encounter
--- OUTSIDE RECORDS SUMMARY | 2022-02-26 10:54 | XMS_ITS | Encounter Summary ---
:1960 Author Organization [facility] Address [address] [address] Care Team Providers Name Role Phone Qasim Jimenez PA-C Primary Care Provider Encounter Details Date Type Department Care Team Description 08/12/2003 PN Conversion Only [facility] Qasim Jimenez, Medicine THAIC [id number] [facility] [address] [place] [address] [place] [address] [phone] (Wo rk) Social History Tobacco Use Types Packs/Day Years Used Date Smoking Tobacco: Never Assessed Sex Assigned at Date Recorded Not on file documented as of this encounter Progress Notes Qasim Jimenez PA-C - 08/12/2003 12:01 AM CDT Progress Notes signed by Qasim Jimenez PA-C at 12/12/03 1713 Author: Qasim May PA-C Service: (none) Author Type: Physician Husbandry Technician Filed: 07/05/10 2240 Note Time: 08/12/03 0001 Status: Signed Print Shop Stenographer: Qasim May PA-C (Physician Husbandry Technician) NAME: KISHORE RAYA MR: [id number] ACCT: [id number] VISIT: [id number] DICTATING CLINICIAN: MALCOM PONCE JOB: [id number] CLINIC PROGRESS NOTE DATE OF VISIT: 08/12/2003 ASSESSMENT: 1. History of pulmonary embolus status post six month therapy with Coumadin. 2. 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 PLAN: 1. Will have her discontinue the Coumadin and start 325 mg of enteric coated aspirin daily. In one month I am going to have her repeat some laboratory tests including PT, PTT, CBC, factor V Leiden, protein C and protein S, antithrombin III to ensure there is no clotting disorder related to the pulmonary embolus. If normal she will continue with the enteric coated aspirin daily. If abnormalities seen will have her see Dr. Galindo for further evaluation. 2. As far as the pain in the right upper extremity suggested that she try to vary her job duties, but she is not doing eight hours straight of repetitive motion with the right extremity, possibly switching to the left hand if possible. She is agreeable to this plan. If pain persists or worsen she is to return for further assessment. I did encourage regular exercise and balanced diet. Encouraged adequate calcium intake. Should be getting 1200 mg of calcium daily in divided doses. Also stressed the importance of getting adequate vitamin D and take along with the calcium. They are agreeable with this plan. FINAL IMPRESSION: 1. Status post pulmonary embolus, has now finished six months of Coumadin therapy. 2. Right upper extremity pain related to repetitive motions. SUBJECTIVE: Kishore is a 23-year-old female in today in followup of Coumadin. She has history of pulmonary embolus following abdominal hysterectomy and abdominoplasty. Has been on Coumadin now at therapeutic doses for six months which had been originally recommended for her. She has been doing well. No reoccurrence of DVT or pulmonary embolus. States she has had no chest pain, no shortness of breath. Has been doing quite well. However, is concerned with pain in her right wrist, arm, and shoulder. Rates her pain as a 1 out of 10. Has been bothering her for about two weeks. Her symptoms increase with repetitive motions at work. Alleviated with Tylenol. PAST MEDICAL HISTORY: Hearing impaired, depression, hypertension, history of pulmonary embolus, status post hysterectomy and abdominoplasty. CURRENT MEDICATIONS: Zoloft 100 mg daily, atenolol 25 mg daily, Coumadin 7.5 mg daily. ADR/ALLERGIES: NONE. TOBACCO USE: None. REVIEW OF SYSTEMS: Further review of systems negative. OBJECTIVE: VS: BP: 120/88. P: 64. Wt: 114 lb. This is a 43-year-old female in [facility]. She is WH, WN. She is accompanied today by her mother and chemical plant manager. SKIN: Warm and dry. No rashes. No cyanosis. NECK: Supple without lymphadenopathy or thyromegaly. CARDIAC: Regular rate and rhythm with no murmurs, rubs, or gallops. No carotid bruits. Pulses 2+ throughout. LUNGS: CTAB. ABDOMEN: Soft. Bowel sounds positive. No HSM. No masses. No tenderness. DTRs are symmetrical throughout. Strength is equal and appropriate in the upper and lower extremity bilaterally. Sensation is intact to light touch in the upper and lower extremity bilaterally. She does have some pain along the trapezius muscle and along the collarbone. Does have some pain in her shoulder with forward flexion. Also with extension and flexion of the elbow. No pain at the wrist or hand. Tinel sign negative in the elbow and the wrist. Phalen sign is negative. Harness Racing Handicapper strength is equal and appropriate bilaterally. TLW:[id number] C: 08/12/03 20:00 DOCUMENT: [id number] Phone Note, Clinician - 07/28/2003 12:01 AM CDT Phone Note filed by Clinician Phone Note at 07/03/10 1403 Author: Clinician Phone Note Service: (none) Author Type: Resource Filed: 07/03/10 1403 Note Time: 07/28/03 0001 Status: Signed Print Shop Stenographer: Clinician Phone Note (Resource) TO: QASIM MAY FROM: BENJAMIN MENDOZA [id number] 07/28/03 * PROVIDER MESSAGE: ROUTINE * 08:29AM * *WITHIN 4 HOURS * MESSAGE: Per Qasim May PAC: * HOME PHONE:[phone] * Continue on same Coumadin dosage, * WORK PHONE:[phone] * 7.5mg francisca ry day except 5mg on Tu * CONTACT PHONE:[phone] * and . Recheck INR in one month 08-21-19 04. Message left for the pt to call bcak. SUBJECTIVE: ALLERGIES/SENSITIVITIES... NKA 04/25/03 CURRENT MEDICATIONS... Atenolol qd, zoloft 50mg qd 04/25/03 PERTINENT PAST HISTORY... 03/15/03 04/25/03 WEIGHT: ASSESSMENT: INR 2.0 PLAN: DISPOSITION: NO DISPOSITION GIVEN CALL BY BENJAMIN MENDOZA 07/28/2003 08:26AM [id number] ADDENDUM: <07/28/2003 04:04PM by ALBERTINA TATUM: Pt's chemical plant manager calling back, informed of above message. <> 08/01/2003 04:14PM by BENJAMIN MENDOZA: message given to pt's interperter. FLOW REGULATOR Phone Note, Clinician - 06/22/2003 12:01 AM CDT Phone Note filed by Clinician Phone Note at 07/03/10 3891 Author: Clinician Phone Note Service: (none) Author Type: Resource Filed: 07/03/10 1345 Note Time: 06/22/03 0001 Status: Signed Print Shop Stenographer: Clinician Phone Note (Resource) TO: PARAS TORRES FROM: ROSALES MUNROE [facility] [phone] * PROVIDER MESSAGE: FYI *NO * 06/22/03 10:08AM * INPUT NECESSARY * MESSAGE: per dr torres covering for * HOME PHONE:[phone] * qasim العراقي, msg left for * WORK PHONE:[phone] * pt re INR results pls relay msg * CONTACT PHONE:[phone] * when she returns call: INR was 2.2 pls stay on same dose and recheck in 1 month. SUBJECTIVE: ALLERGIES/SENSITIVITIES... NKA 04/25/03 CURRENT MEDICATIONS... Atenolol qd, zoloft 50mg qd 04/25/03 PERTINENT PAST HISTORY... 03/15/03 04/25/03 WEIGHT: ASSESSMENT: inr PLAN: DISPOSITION: NO DISPOSITION GIVEN CALL BY ROSALES MUNROE [facility] 06/22/2003 10:05AM [phone] ADDENDUM: <> 06/27/2003 04:02PM by BENJAMIN MENDOZA: Continue same dose of coumadin (7.5mg every day except 5mg on Tues and Thurs) recheck INR on 07-21-03. Pt's chemical plant manager informed. Phone Note, Clinician - 06/07/2003 12:01 AM CST Phone Note filed by Clinician Phone Note at 07/03/10 0780 Author: Clinician Phone Note Service: (none) Author Type: Resource Filed: 07/03/10 1337 Note Time: 06/07/03 0001 Status: Signed Print Shop Stenographer: Clinician Phone Note (Resource) TO: QASIM MAY FROM: BENJAMIN MENDOZA [id number] 06/07/03 * PROVIDER MESSAGE: ROUTINE * 04:27PM * *WITHIN 4 HOURS * MESSAGE: INR 2.0. Per Qasim * HOME PHONE:[phone] * Lalo PAC: continue on same * WORK PHONE:[phone] * dose of Coumadin 7.5mg every day * CONTACT PHONE:[phone] * except 5mg on Tues and Thurs. Return for INR on . SUBJECTIVE: ALLERGIES/SENSITIVITIES... NKA 04/25/03 CURRENT MEDICATIONS... Atenolol qd, zoloft 50mg qd 04/25/03 PERTINENT PAST HISTORY... 03/15/03 04/25/03 WEIGHT: ASSESSMENT: INR PLAN: DISPOSITION: NO DISPOSITION GIVEN CALL BY BENJAMIN MENDOZA 06/07/2003 04:04PM [id number] ADDENDUM: <06/07/2003 04:27PM by BENJAMIN MENDOZA: Pt's chemical plant manager informed. <06/08/2003 11:53AM by ALBERTINA SUNNISYLVESTER: Sister called, wondering why pt's INR is being checked bi-weekly now instead of monthly. Please call. Ethan- [phone] <06/08/2003 01:22PM by BENJAMIN MENDOZA: Per Qasim May PAC: There was a change from 2.3 to 2.0. I want to make sure that it does not drop below 2.0. If stable this will only be a one time thing. Message left for the pt to call back. <06/08/2003 04:18PM by BENJAMIN MENDOZA: Pt's chemical plant manager informed of the above message. FLOW REGULATOR Phone Note, Clinician - 05/24/2003 12:01 AM CST Phone Note filed by Clinician Phone Note at 07/03/10 3892 Author: Clinician Phone Note Service: (none) Author Type: Resource Filed: 07/03/10 1330 Note Time: 05/24/03 0001 Status: Signed Print Shop Stenographer: Clinician Phone Note (Resource) TO: QASIM MAY FROM: BENJAMIN MENDOZA [id number] 05/24/03 * PROVIDER MESSAGE: ROUTINE * 11:25AM * *WITHIN 4 HOURS * MESSAGE: Written message Was inform * HOME PHONE:[phone] * there's interaction between * WORK PHONE:[phone] * coumadin and z oloft. Wondring if * CONTACT PHONE:[phone] * Kishore needs to be on different anti depressant? Als o please verify the current dosages on her medications. Atenolol 25mg daily, Zoloft 100mg daily, Coumadin 7.5mg except 5mg Tues and Th, M axide 75/50 daily. SUBJECTIVE: ALLERGIES/SENSITIVITIES... NKA 04/25/03 CURRENT MEDICATIONS... Atenolol qd, zoloft 50mg qd 04/25/03 PERTINENT PAST HISTORY... 03/15/03 04/25/03 WEIGHT: ASSESSMENT: Coumadin PLAN: DISPOSITION: NO DISPOSITION GIVEN CALL BY BENJAMIN MENDOZA 05/24/2003 11:20AM [id number] ADDENDUM: <> 05/24/2003 11:25AM by BENJAMIN MENDOZA: Per Qasim May PAC: stay on Zoloft and same Coumadin dosage. Colin richard spoke to the pt's sister. Current meds are as listed above. [facility] phone number is: [phone], . FLOW REGULATOR Althea Acuna MD - 05/10/2003 12:01 AM CST Progress Notes signed by Althea Acuna MD at 06/07/03 220 Author: Althea Acuna MD Service: (none) Author Type: Physician Filed: 07/05/10 7116 Note Time: 05/10/03 0001 Status: Signed Print Shop Stenographer: Althea Acuna MD (Physician) NAME: KISHORE RAYA MR: [id number] ACCT: [id number] VISIT: [id number] DICTATING CLINICIAN: ALTHEA ACUNA MD JOB: [id number] CLINIC PROGRESS NOTE DATE OF VISIT: 05/10/2003 ASSESSMENT: Postop check. PLAN: We will plan to see her again as needed. SUBJECTIVE: Three months postop. She has spit a couple of sutures, but otherwise is doing extremely well, and the scar looks very good even at this stage postoperative. OBJECTIVE: [id number] C: 05/16/03 22:10 DOCUMENT: [id number] FLOW REGULATOR Phone Note, Clinician - 05/09/2003 12:01 AM CST Phone Note filed by Clinician Phone Note at 07/03/10 1322 Author: Clinician Phone Note Service: (none) Author Type: Resource Filed: 07/03/10 1322 Note Time: 05/09/03 0001 Status: Signed Print Shop Stenographer: Clinician Phone Note (Resource) TO: PARAS TORRES FROM: BENJAMIN MENDOZA [id number] 05/09/03 * PROVIDER MESSAGE: ROUTINE * 01:22PM * *WITHIN 4 HOURS * MESSAGE: INR 2.3 on 05-06-03, * HOME PHONE:[phone] * continue on same dosage of coumadin * WORK PHONE:[phone] * 7.5 every day except 5mg on * CONTACT PHONE:[phone] * and Thvalerie, Recheck INR in one month. Message left for the pt to call back. SUBJECTIVE: ALLERGIES/SENSITIVITIES... NKA 04/25/03 CURRENT MEDICATIONS... Atenolol qd, zoloft 50mg qd 04/25/03 PERTINENT PAST HISTORY... 03/15/03 04/25/03 WEIGHT: ASSESSMENT: INR PLAN: DISPOSITION: NO DISPOSITION GIVEN CALL BY BENJAMIN MENDOZA 05/09/2003 01:19PM [id number] ADDENDUM: <> 05/11/2003 01:47PM by ROSALES MUNROE MANNEQUIN DECORATOR: tried calling pt again friday and today friday05-10-03 with no res ponse pls relay msg from previous note left by benjamin mendoza from 04/18 when pt calls <> 05/12/2003 01:15PM by BENJAMIN MENDOZA: Pt's sister informed of the above message, re: INR and dosage, recheck date. Qasim Jimenez PA-C - 04/26/2003 12:01 AM CST Progress Notes signed by Qasim Jimenez PA-C at 12/12/03 1134 Author: Qasim May PA-C Service: (none) Author Type: Physician Husbandry Technician Filed: 07/05/10 1842 Note Time: 04/26/03 0001 Status: Signed Print Shop Stenographer: Qasim May PA-C (Physician Husbandry Technician) NAME: KISHORE RAYA MR: [id number] ACCT: [id number] VISIT: [id number] DICTATING CLINICIAN: MALCOM PONCE JOB: [id number] CLINIC PROGRESS NOTE DATE OF VISIT: 04/26/2003 ASSESSMENT: Retained sutures. PLAN: Assured the patient that this is typical for healing wounds. That she should keep the areas from getting irritated or rubbed on, so as to promote quicker healing. If she finds that the area becomes intensely red, there is a purulent drainage, or she develops fever, I would like to see her again. FINAL IMPRESSION: Retained sutures. SUBJECTIVE: Kishore is a 43-year-old female in today, with her sister acting as chemical plant manager, to have her abdominal incision checked. She had a hysterectomy and tummy tuck in December. States recently she has noticed that her wound has opened up and has had a small amount of drainage. States it started draining within the last week. States it hurts a little with lots of itching. The discharge has a brownish tinge. Denies any fevers, nausea or vomiting. PAST MEDICAL HISTORY: Hypertension. Depression. Hearing impairment. She did have complications with the hysterectomy. She had a pulmonary embolism. CURRENT MEDICATIONS: Maxzide 50, atenolol 25 mg daily, Coumadin and Zoloft. ADR/ALLERGIES: NONE. TOBACCO USE: None. Further review of systems negative. OBJECTIVE: VS: BP: 124/80. T: 98.1. P: 64. Wt: 116 lb. This is a 43-year-old female in [place]. She is WH, WN. NECK: Supple. No lymphadenopathy. CARDIAC: Regular rate and rhythm with no murmurs, rubs, or gallops. LUNGS: CTAB. ABDOMEN: Soft. Bowel sounds positive. No HSM. No masses. No significant tenderness. There is a large scar along the lower abdomen, which appears well healed. There are several areas where it appears there is some retained sutures that are working their way out. On the left hand portion of the wound there is a large area of crusting. No surrounding erythema. No significant tenderness. No induration. TLW:[id number] C: 04/27/03 17:29 DOCUMENT: [id number] Phone Note, Clinician - 04/25/2003 12:01 AM CST Phone Note filed by Clinician Phone Note at 07/03/10 4221 Author: Clinician Phone Note Service: (none) Author Type: Resource Filed: 07/03/10 1315 Note Time: 04/25/03 0001 Status: Signed Print Shop Stenographer: Clinician Phone Note (Resource) SUBJECTIVE: ALLERGIES/SENSITIVITIES... NKA * HOME PHONE:[phone] * 04/25/03 * WORK PHONE:[phone] * CURRENT MEDICATIONS... Atenolol qd, zoloft 50mg qd 04/25/03 PERTINENT PAST HISTORY... 03/15/03 04/25/03 ASSESSMENT: wound drainage DISPOSITION: NO DISPOSITION GIVEN PATIENT IS NOT . PATIENT IS NOT NURSING. PLAN: [facility] COMMENTS... Pt had hysterectomy and tummy tuck in Dec. A couple days ago she noted that there was a small opening in the old incision, now it has enlarged to about dime size and is draining. Advised to make appt to be seen. Wants to see Brandi May. Appt booked for 04/26 with Brandi May WORKFORCE SERVICES REPRESENTATIVE and call center will book interpretor for her as she is deaf. CALL BY GLADIS STALEY RN 04/25/2003 11:27AM [phone] ADDENDUM: Phone Note, Clinician - 04/07/2003 12:01 AM CST Phone Note filed by Clinician Phone Note at 07/03/10 1370 Author: Clinician Phone Note Service: (none) Author Type: Resource Filed: 07/03/10 6727 Note Time: 04/07/03 0001 Status: Signed Print Shop Stenographer: Clinician Phone Note (Resource) TO: QASIM MAY FROM: BENJAMIN MENDOZA [id number] 04/07/03 * PROVIDER MESSAGE: ROUTINE * 10:52AM * *WITHIN 4 HOURS * MESSAGE: Per Qaism May PAC: * HOME PHONE:[phone] * continue on same dose Coumadin 7.5 * WORK PHONE:[phone] * every da y except 5mg on and * CONTACT PHONE:[phone] * Thurs. Recheck INR in one month. Message left for the pt to call back. SUBJECTIVE: ALLERGIES/SENSITIVITIES... None 03/15/03 CURRENT MEDICATIONS... maxide 03/15/03 PERTINENT PAST HISTORY... 03/15/03 WEIGHT: ASSESSMENT: INR_2.3 04-06-03 PLAN: DISPOSITION: NO DISPOSITION GIVEN CALL BY BENJAMIN MENDOZA 04/07/2003 10:48AM [id number] ADDENDUM: Phone Note, Clinician - 03/24/2003 12:01 AM CST Phone Note filed by Clinician Phone Note at 07/03/10 5228 Author: Clinician Phone Note Service: (none) Author Type: Resource Filed: 07/03/10 4341 Note Time: 03/24/03 0001 Status: Signed Print Shop Stenographer: Clinician Phone Note (Resource) TO: QASIM MAY FROM: BENJAMIN MENDOZA [id number] 03/24/03 * PROVIDER MESSAGE: ROUTINE * 09:32AM * *WITHIN 4 HOURS * MESSAGE: Per Qasim May PAC: * HOME PHONE:[phone] * Continue on same dose of Coumadin * WORK PHONE:[phone] * 7.5 on ev jeanette day except 5mg on * CONTACT PHONE:[phone] * Tues and Thurs. Recheck INR on 04-06-03. Message left for the pt to call back. SUBJECTIVE: ALLERGIES/SENSITIVITIES... None 03/15/03 CURRENT MEDICATIONS... maxide 03/15/03 PERTINENT PAST HISTORY... 03/15/03 WEIGHT: ASSESSMENT: INR PLAN: DISPOSITION: NO DISPOSITION GIVEN CALL BY BENJAMIN MENDOZA 03/24/2003 09:26AM [id number] ADDENDUM: <> 03/24/2003 04:15PM by BENJAMIN MENDOZA: Pt's interprter informed, of the above message. FLOW REGULATOR Phone Note, Clinician - 03/15/2003 12:01 AM CST Phone Note filed by Clinician Phone Note at 07/03/10 1254 Author: Clinician Phone Note Service: (none) Author Type: Resource Filed: 07/03/10 1254 Note Time: 03/15/03 0001 Status: Signed Print Shop Stenographer: Clinician Phone Note (Resource) TO: COURTNEY SEPULVEDA FROM: AARON GARBER RN [id number] * PROVIDER MESSAGE: RETURN * 03/15/03 11:18AM * CALL REQUESTED * MESSAGE: Patient's sister is calling * HOME PHONE:[phone] * because patient is deaf. Patient * WORK PHONE:[phone] * had a Hyst on 01/10 and will return * CONTACT PHONE:[phone] * to work on 03/21. She needs a note * [facility] - [phone] * for her work saying that she is fine to return to work and add any restriction if there are any. Mail it to her home. Call sister if any questions. SUBJECTIVE: ALLERGIES/SENSITIVITIES... None 03/15/03 CURRENT MEDICATIONS... maxide 03/15/03 PERTINENT PAST HISTORY... 03/15/03 WEIGHT: PATIENT IS NOT . PATIENT IS NOT NURSING. ASSESSMENT: Back to work slip PLAN: DISPOSITION: NO DISPOSITION GIVEN CALL BY AARON GARBER RN 03/15/2003 11:11AM [id number] ADDENDUM: FLOW REGULATOR Phone Note, Clinician - 03/11/2003 12:01 AM CST Phone Note filed by Clinician Phone Note at 07/03/10 1253 Author: Clinician Phone Note Service: (none) Author Type: Resource Filed: 07/03/10 1253 Note Time: 03/11/03 0001 Status: Signed Print Shop Stenographer: Clinician Phone Note (Resource) TO: KATYA VALENCIA FROM: BENJAMIN MENDOZA [id number] 03/11/03 * PROVIDER MESSAGE: ROUTINE * 09:33AM * *WITHIN 4 HOURS * MESSAGE: Per Dr Cordell MONTGOMERY: INR 2.3, * HOME PHONE:[phone] * Continue same dose. 7.5 qd except * WORK PHONE:[phone] * 5mg on and . Re check * CONTACT PHONE:[phone] * INR in two wks ( 03-25-03). Pt informed. SUBJECTIVE: ALLERGIES/SENSITIVITIES... CURRENT MEDICATIONS... PERTINENT PAST HISTORY... WEIGHT: ASSESSMENT: INR PLAN: DISPOSITION: NO DISPOSITION GIVEN CALL BY BENJAMIN MENDOZA 03/11/2003 09:29AM [id number] ADDENDUM: FLOW REGULATOR Courtney Sepulveda MD - 02/25/2003 12:01 AM CST Progress Notes signed by Courtney Sepulveda MD at 03/22/03 1144 Author: Courtney Sepulveda MD Service: (none) Author Type: Physician Filed: 07/05/10 1737 Note Time: 02/25/03 0001 Status: Signed Print Shop Stenographer: Courtney Sepulveda MD (Physician) NAME: KISHORE RAYA MR: [id number] ACCT: [id number] VISIT: [id number] DICTATING CLINICIAN: COURTNEY SEPULVEDA MD JOB: [id number] CLINIC PROGRESS NOTE DATE OF VISIT: 02/25/2003 SUBJECTIVE: Chief complaint: Postoperative check. HISTORY OF PRESENT ILLNESS: This patient had a hysterectomy six weeks ago, with an abdominoplasty by a plastic surgeon. She feels fine. Her wounds are healing well. She has nothing to complain about at present. She is here today with her parents who are competent interpreters and all her questions are answered. OBJECTIVE: ASSESSMENT: PLAN: Follow up as needed only. TT: CT: [id number] C: 02/25/03 17:56 DOCUMENT: [id number] FLOW REGULATOR Phone Note, Clinician - 02/17/2003 12:01 AM CST Phone Note filed by Clinician Phone Note at 07/03/10 5031 Author: Clinician Phone Note Service: (none) Author Type: Resource Filed: 07/03/10 9283 Note Time: 02/17/03 0001 Status: Signed Print Shop Stenographer: Clinician Phone Note (Resource) SUBJECTIVE: ALLERGIES/SENSITIVITIES... * HOME PHONE:[phone] * CURRENT MEDICATIONS... * WORK PHONE:[phone] * PERTINENT PAST HISTORY... ASSESSMENT: INR DISPOSITION: NO DISPOSITION GIVEN PLAN: MISC COMMENTS... Pt's INR was 2.9 today. Protime was 31.1. Per Brandi Galdamez: [place] on 7.5mg qd except 5mg on Friday and . Recheck in 1 wee k. Message left for pt to call back for a computer message. CALL BY BOOM ALBERT 02/17/2003 03:49PM [phone] ADDENDUM: Phone Note, Clinician - 02/11/2003 12:01 AM CST Phone Note signed by Qasim Jimenez PA-C at 11/23/03 2216 Author: Clinician Phone Note Service: (none) Author Type: Resource Filed: 08/12/03 0000 Note Time: 02/11/03 0001 Status: Signed Print Shop Stenographer: Clinician Phone Note (Resource) - TREATING PROVIDER: QASIM LALO * HOME PHONE:[phone] * SUBJECTIVE: * WORK PHONE:[phone] * ALLERGIES/SENSITIVITIES... CURRENT MEDICATIONS... PERTINENT PAST HISTORY... ASSESSMENT: Rx refill DISPOSITION: NO DISPOSITION GIVEN OMITTED ASKING ABOUT . OMITTED ASKING ABOUT NURSING. PLAN: MISC COMMENTS... Per Qasim May,PAC: ok for Triamterene/Hctz 75/50mg tablets #30 prn x 1 year. This was faxed to [facility] at [phone] by Yumiko Quintero CALL BY MYCHAL TAVAREZ 02/11/2003 02:37PM [phone] ADDENDUM: Courtney Sepulveda MD - 02/03/2003 12:01 AM CST Progress Notes signed by Courtney Sepulveda MD at 03/22/03 1138 Author: Courtney Sepulveda MD Service: (none) Author Type: Physician Filed: 07/05/10 1713 Note Time: 02/03/03 0001 Status: Signed Print Shop Stenographer: Courtney Sepulveda MD (Physician) NAME: KISHORE RAYA MR: [id number] ACCT: [id number] VISIT: [id number] DICTATING CLINICIAN: COURTNEY SEPULVEDA MD JOB: [id number] CLINIC PROGRESS NOTE DATE OF VISIT: 02/03/2003 SUBJECTIVE: Chief Complaint: Postop check. HISTORY OF PRESENT ILLNESS: This patient had a hysterectomy with an abdominoplasty and had a long complicated course of bleeding and pulmonary embolism. She feels fine now except for a bit of fatigue. She is being seen by plastic surgery and the anticoagulation clinic. OBJECTIVE: The incisions are healing well. ASSESSMENT: PLAN: The patient will return in four weeks for a final check which will include a vaginal exam. TT: CT: EWL:[id number] C: 02/03/03 10:55 DOCUMENT: [id number] FLOW REGULATOR Phone Note, Clinician - 02/03/2003 12:01 AM CST Phone Note filed by Clinician Phone Note at 07/03/10 1237 Author: Clinician Phone Note Service: (none) Author Type: Resource Filed: 07/03/10 1234 Note Time: 02/03/03 0001 Status: Signed Print Shop Stenographer: Clinician Phone Note (Resource) TO: QASIM MAY FROM: KENJI TAYLOR [phone] 02/03/03 * PROVIDER MESSAGE: RETURN * 03:43PM * CALL REQUESTED * MESSAGE: Kayla from [facility] * HOME PHONE:[phone] * discharged pt today from home care * WORK PHONE:[phone] * and states you agreed to follow her * CONTACT PHONE:[phone] * coumadin levels, they want this * [facility] * done at [facility] so orders will * this was a long message * have to be sent there for her draws * left on voice mail * and orders for furture labs will have to be called after 5pm at [phone] when parents are home. INR today was 2.8 and Coumadin 5mg Tues and Thurs, 7.5 all other days, will need next lab on Feb 09. SUBJECTIVE: ALLERGIES/SENSITIVITIES... MKDA 05/24/02 CURRENT MEDICATIONS... 05/24/02 PERTINENT PAST HISTORY... Hep B 05/24/02 WEIGHT: OMITTED ASKING ABOUT . OMITTED ASKING ABOUT NURSING. ASSESSMENT: Coumadin orders PLAN: DISPOSITION: NO DISPOSITION GIVEN CALL BY KENJI TAYLOR 02/03/2003 03:35PM [phone] ADDENDUM: <> 02/04/2003 01:57PM by BENJAMIN MENDOZA: Per Qasim May PAC: Please send PT/INR paperwork to [facility] f or this to be drawn. Paper work sent to [facility] lab. FLOW REGULATOR Althea Acuna MD - 01/25/2003 12:01 AM CST Progress Notes signed by Althea Acuna MD at 02/16/03 1037 Author: Althea Acuna MD Service: (none) Author Type: Physician Filed: 07/05/10 1704 Note Time: 01/25/03 0001 Status: Signed Print Shop Stenographer: Althea Acuna MD (Physician) NAME: KISHORE RAYA MR: [id number] ACCT: [id number] VISIT: [id number] DICTATING CLINICIAN: ALTHEA ACUNA MD JOB: [id number] CLINIC PROGRESS NOTE DATE OF VISIT: 01/25/2003 SUBJECTIVE: The patient is doing well following abdominoplasty. She has been wearing the binder and the girdle. Her chemical plant manager is here. OBJECTIVE: The wound is healing well. We will check her again in a month. Activity precautions reviewed. ASSESSMENT: Postop check. PLAN: See above. TT: CT: [id number] C: 02/15/03 10:46 DOCUMENT: [id number] FLOW REGULATOR Phone Note, Clinician - 12/24/2002 12:01 AM CDT Phone Note signed by Qasim Jimenez PA-C at 11/22/033 Author: Clinician Phone Note Service: (none) Author Type: Resource Filed: 08/12/03 0000 Note Time: 12/24/02 0001 Status: Signed Print Shop Stenographer: Clinician Phone Note (Resource) - TREATING PROVIDER: QASIM LALO * HOME PHONE:[phone] * SUBJECTIVE: * WORK PHONE:[phone] * ALLERGIES/SENSITIVITIES... MKDA 05/24/02 CURRENT MEDICATIONS... 05/24/02 PERTINENT PAST HISTORY... Hep B 05/24/02 ASSESSMENT: Rx refill DISPOSITION: NO DISPOSITION [facility] COMMENTS... Per Qasim May,PAC: ok for Zoloft 100mg tablets #30 prn x 1 year. This was faxed to [facility] [phone] by Cinthya Palacios CALL BY MYCHAL TAVAREZ 12/24/2002 11:07AM ADDENDUM: Qasim Hagan PA-C - 12/10/2002 12:01 AM CDT Progress Notes signed by Qasim Jimenez PA-C at 11/21/03 9160 Author: Qasim May PA-C Service: (none) Author Type: Physician Husbandry Technician Filed: 07/05/10 8582 Note Time: 12/10/02 0001 Status: Signed Print Shop Stenographer: Qasim May PA-C (Physician Husbandry Technician) NAME: KISHORE RAYA MR: [id number] ACCT: [id number] VISIT: [id number] DICTATING CLINICIAN: MALCOM PONCE JOB: [id number] CLINIC PROGRESS NOTE DATE OF VISIT: 12/10/2002 SUBJECTIVE: Kishore is a 42-year-old female in today for a preop physical. Will be undergoing a FLEX and abdominoplasty 12/20/[address] Acuna and Dr. Sepulveda. She has had uterine fibroids diagnosed, which are causing irregular bleeding, some pain. Also has some abdominal lipodystrophy. PAST MEDICAL HISTORY: Hypertension, depression, hearing impaired. PAST SURGICAL HISTORY: Tubal ligation. Had no adverse reactions to anesthesia. CURRENT MEDICATIONS: Zoloft 100 mg daily, Maxzide 75/50. ADR/ALLERGIES: NONE. FAMILY HISTORY: Mother with hypertension. Father with diabetes. Maternal aunts and uncles with CAD. 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 She has 2 children. She is single. She lives with her parents. She is nonsmoker. Does not use alcoholic beverages. Complete review of systems significant for intermittent chest pain. Was unable to elicit a good history of the chest pain. States she does not know of any exacerbating or alleviating factors. Does not know when it first occurred. Also has had increased shortness of breath with exercise. States it is not always associated with the chest pain. Further complete ROS is negative. OBJECTIVE: VS: BP: 122/84. T: 98.0. P: 68. R: 20. Ht: 61 in. Wt: 124 lb. This is a 42-year-old female in NAD. She is WH, WN. She is here with her memorial marker designer. SKIN: Warm and dry. No rashes. No cyanosis. HEENT: Head is normocephalic. Ear canals clear. TMs cash with normal landmarks. Sclerae white. Conjunctivae pink. PERRLA, EOMI. Posterior pharynx pink and moist, without lesions. NECK: Supple, without lymphadenopathy or thyromegaly. CARDIAC: Regular rate and rhythm with no murmurs, rubs, or gallops. No carotid bruits. Radial pulses 2+ bilaterally. Posterior tibialis pulses nonpalpable on the right, 1+ on the left. Dorsalis pedis 1+ on the right, 1+ on the left. LUNGS: CTAB. ABDOMEN: Soft. Bowel sounds positive. No HSM. No masses. No tenderness. EXTREMITIES: Grossly normal. Strength is 5+/5+ in the upper and lower extremities bilaterally, and DTRs are symmetrical throughout. She is alert and oriented times 3. ASSESSMENT: 1. Preop physical. Okay for surgery. 2. Uterine fibroids. 3. Abdominal lipodystrophy. 4. Hypertension. 5. Intermittent chest pain with increased PETE. PLAN: EKG showed bradycardia with sinus arrythmia. Did get a stress echocardiogram. It is normal. Did have some mild mitral regurgitation. Chest x-ray showed calcified lymph nodes in the right hilum. Otherwise was normal. Will give her atenolol 25 mg daily starting on 12/10/02. She should continue this medication at least 2 weeks postoperatively. Otherwise she will remain NPO after midnight. No aspirin. No NSAIDs. Tylenol for pain. She may take her current medications 3 hours prior to surgery with a few sips of water. TT: CT: [id number] C: 12/31/02 09:42 DOCUMENT: [id number] Courtney Sepulveda MD - 09/10/2002 12:01 AM CDT Progress Notes signed by Courtney Sepulveda MD at 09/14/02 1210 Author: Courtney Sepulveda MD Service: (none) Author Type: Physician Filed: 07/05/10 4313 Note Time: 09/10/02 0001 Status: Signed Print Shop Stenographer: Courtney Sepulveda MD (Physician) NAME: RAYAKISHORE WILSON MR: [id number] ACCT: [id number] VISIT: [id number] DICTATING CLINICIAN: COURTNEY SEPULVEDA MD JOB: [id number] CLINIC PROGRESS NOTE DATE OF VISIT: 09/10/2002 SUBJECTIVE: Chief Complaint: Uterine fibroids and abdominal laxity. HISTORY OF PRESENT ILLNESS: Please see Dr. Alli Paz's note from 07/23/02. The patient has fibroids as described and has consulted with Dr. Acuna from the plastic surgery service regarding an abdominoplasty. I have been asked to perform the abdominal hysterectomy because Dr. Paz does not operate at [facility] where the plastic surgeons are located. The patient with an chemical plant manager and her sister is given information about the operation and I think she understands clearly what we are talking about. The patient will be scheduled in conjunction with Dr. Acuna at her convenience probably sometime in October. Total time of the visit is 15 minutes, total counseling time 15 minutes. OBJECTIVE: ASSESSMENT: PLAN: TT: [address]: 15 minutes. [id number] C: 09/11/02 00:53 DOCUMENT: [id number] Althea Acuna MD - 08/31/2002 12:01 AM CDT Progress Notes signed by Althea Acuna MD at 10/21/02 1159 Author: Althea Acuna MD Service: (none) Author Type: Physician Filed: 07/05/10 1440 Note Time: 08/31/02 0001 Status: Signed Print Shop Stenographer: Althea Acuna MD (Physician) NAME: KISHORE RAYA MR: [id number] ACCT: [id number] VISIT: [id number] DICTATING CLINICIAN: ALTHEA ACUNA MD JOB: [id number] CLINIC PROGRESS NOTE DATE OF VISIT: 08/31/2002 SUBJECTIVE: The patient sent in by physician laboratory chemical assistant Lalo for abdominoplasty consultation. The patient is a 42-year-old hearing impaired woman and with an chemical plant manager. She has had two pregnancies, normal vaginal deliveries, and is unhappy with the fatty fullness of the lower abdomen. She has a fibroid in the uterus and is supposed to have a hysterectomy and wants to have an abdominoplasty at the same time. The patient is illiterate and lives at home with her parent's. 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 Does not exercise. Has a history of hypertension and depression, and no previous surgeries. MEDICATIONS: Takes Zoloft, an antihypertensive, multivitamins, and iron supplement. ADR/ALLERGIES: NO ALLERGIES. Does not smoke. OBJECTIVE: VS: BP: 130/84. Ht: 5 ft 1 in. Wt: 122 lb. On exam, she is alert, responsive, and does seem to understand our discussion with the chemical plant manager and we did our examination with the chemical plant manager absent and further discussion with the chemical plant manager present. Her sister is also assisting in questioning and interpretation. She has a moderate skin redundancy, which would allow for excision of essentially all of the infraumbilical skin and we discussed the procedure, location of the incisions, possibility of infection, bleeding, pulmonary embolus, prominent scars, activity restrictions, postoperative compression, need for additional surgery. Discussed possible hyperpigmentation or keloid scarring. She does not have much rectus diastasis and there is no hernia. She seems comfortable with the discussion, as does her sister, who feels that the patient understands also. We will coordinate this with her credit control clerk. ASSESSMENT: Abdominal dermachalasis and lipodystrophy. PLAN: See above. TT: CT: [id number] C: 10/08/02 14:37 DOCUMENT: [id number] Phone Note, Clinician - 08/27/2002 12:01 AM CDT Phone Note signed by Qasim Jimenez PA-C at 11/14/03 3030 Author: Clinician Phone Note Service: (none) Author Type: Resource Filed: 08/12/03 0000 Note Time: 08/27/02 0001 Status: Signed Print Shop Stenographer: Clinician Phone Note (Resource) - TREATING PROVIDER: QASIM LALO * HOME PHONE:[phone] * SUBJECTIVE: * WORK PHONE:[phone] * ALLERGIES/SENSITIVITIES... MKDA 05/24/02 CURRENT MEDICATIONS... 05/24/02 PERTINENT PAST HISTORY... Hep B 05/24/02 ASSESSMENT: Rx refill DISPOSITION: NO DISPOSITION GIVEN PLAN: MISC COMMENTS... Per Qasim May,PAC: ok for Triamterene/HCTZ 75/50 MG tablets #30 x5 refills. This was faxed to [facility] at [phone] by Yumiko Quintero CALL BY MYCHAL TAVAREZ 08/27/2002 04:19PM ADDENDUM: Alli Aranda - 07/23/2002 12:01 AM CDT Progress Notes signed by Alli Paz MD at 08/25/02 1254 Author: Alli Paz MD Service: (none) Author Type: Physician Filed: 07/05/10 1403 Note Time: 07/23/02 0001 Status: Signed Print Shop Stenographer: Alli Paz MD (Physician) NAME: KISHORE RAYA MR: [id number] ACCT: [id number] VISIT: [id number] DICTATING CLINICIAN: ALLI PAZ MD JOB: [id number] CLINIC PROGRESS NOTE DATE OF VISIT: 07/23/2002 SUBJECTIVE: Chief Complaint: Here for a follow up for fibroids. HISTORY OF PRESENT ILLNESS: Please note that the patient is hearing impaired and normally has a memorial marker designer, but the chemical plant manager did not show up today and the patient is illiterate and thus cannot read writing. However, the patient's relatives, including her mother, and I believe her sister were here and so I was able to communicate the information to them, who will then communicate via an chemical plant manager to the patient directly at home. I also wrote the information that I communicated to them today down on a piece of paper. The patient had an ultrasound done for follow up for uterine fibroids on 07/01/2002. The patient had about 5.8 cm fibroid that possibly could have more than one actual fibroids incorporated in the lesion in the uterus. The uterus itself measured 9.3 x 7.4 x 4.1 cm. The endometrium was 4 mm thick and the ovaries were essentially normal. There is no cul-de-sac fluid. I wrote down that the patient's fibroid has not changed since her previous ultrasound three years ago. However, I also wrote down that if she is more symptomatic she could opt to have a hysterectomy if she wishes. I also wrote that removal of the ovaries would not be mandatory and that if she does not want to undergo surgical menopause and her ovaries appear normal on the time of hysterectomy she could opt to keep her ovaries. She would no longer have menses, but she would keep her ovaries and maintain hormonal premenopausal state until she undergoes hormonal menopause. She is, however, apparently considering undergoing a abdominoplasty for cosmetic reasons and she has an appointment to see a plastic surgeon in August. I did inform them that if she did wish to have both the hysterectomy and the abdominoplasty done concurrently and that it was feasible from the plastic surgeon standpoint, that she would have this done at [facility] with a different CUE SELECTOR physician since I only do surgical procedures at [facility] and the plastic surgeons will only operate at [facility]. OBJECTIVE: ASSESSMENT: Uterine fibroids. PLAN: 1. I counseled the patient via her sister, who will then convey it through an chemical plant manager at home that the patient can undergo a total abdominal hysterectomy if she wishes and then if she wishes to just do that procedure alone, she can call via an chemical plant manager and have this scheduled. She will also then need to follow up for preop exam with me and an chemical plant manager will be mandatory at that time because I will have to review the risks and alternatives in detail at that time. 2. The patient can also undergo a hysterectomy with a CUE SELECTOR physician who operates out of [facility] if she chooses to do it at the same time as an abdominoplasty that she may nor may not have done with a plastic surgeon, if that is okay with the plastic surgeon and the other CUE SELECTOR physician as well. Please note I spent 15 counseling time out of a total visit time of 15 minutes in direct face to face counseling and coordination in care of the patient. TT: [address]: 15 minutes VENEER REPAIRER MACHINE:[id number] C: 07/24/02 15:06 DOCUMENT: [id number] Alli Paz - 06/18/2002 12:01 AM CST Progress Notes signed by Alli Paz MD at 06/22/02 1657 Author: Alli Paz MD Service: (none) Author Type: Physician Filed: 07/05/10 1329 Note Time: 06/18/022019 Status: Signed Print Shop Stenographer: Alli Paz MD (Physician) NAME: KISHORE RAYA MR: [id number] ACCT: [id number] VISIT: [id number] DICTATING CLINICIAN: ALLI PAZ MD JOB: [id number] CLINIC PROGRESS NOTE DATE OF VISIT: 06/18/2002 SUBJECTIVE: : 1960. Chief Complaint: I was asked to see the patient by Qasim May regarding uterine fibroids. HISTORY OF PRESENT ILLNESS: The patient is a 42-year-old [place] woman, 3 para 2-0-1-2, who is status post tubal ligation in the past on no other hormonal therapy whom I was asked to see by Qasim May for pelvic discomfort and uterine fibroid history. The patient is hearing impaired, and I communicated with her through a memorial marker designer. She complains of pain predominantly in the left lower quadrant for many years. It has been getting a little bit worse over the last couple years. She has a history of apparently having had an 8-week size fibroid uterus noted by Dr. Larson about three years ago. She elected to just treat it with oral contraceptives. She, however, most recently has been told not to take any more hormonal therapy because she has developed hypertension in the interim. She also has a history of increasing lower abdominal discomfort despite hormonal therapy. She takes Tylenol, but it does not help. Her menses are typically five days long with heavy to average flow, and they occur every 28 to 30 days. She has no intermenstrual bleeding. She had a pelvic ultrasound back in January 2001 which showed a 6 cm fundal uterine fibroid but otherwise normal adnexa bilaterally. PAST OB HISTORY: First trimester SAB x1. Term spontaneous vaginal delivery x2, but she is unsure of the weights of the infants. PAST CUE SELECTOR HISTORY: Negative for sexually transmitted diseases. Negative for abnormal Pap smear. Her last Pap smear in 04/2002 was normal. PAST MEDICAL HISTORY: Hearing impairment, hypertension, depression. PAST SURGICAL HISTORY: tubal ligation. MEDICATIONS: Zoloft and Maxzide. ADR/ALLERGIES: NO KNOWN DRUG ALLERGIES. FAMILY HISTORY: Negative for CUE SELECTOR cancer. SOCIAL HISTORY: She is . She works in [employer]. She does not smoke. She does not drink alcohol or use drugs. REVIEW OF SYSTEMS: GI: Negative for nausea, vomiting, constipation, diarrhea. : Negative for dysuria. OBJECTIVE: In general, she is a well-developed, well-nourished, [place] woman in no acute distress. ABDOMEN: Nondistended, normoactive bowel sounds, soft, nontender, with no hepatosplenomegaly, inguinal hernias, or CVA tenderness. PELVIC: External genitalia normal. Urethral meatus is normal. Urethra is normal. Bladder is normal. Vagina shows normal rugation with no abnormal lesion or discharge. Cervix appeared grossly normal, parous. No gross lesions or mucopus. Bimanual exam reveals no cervical motion tenderness. Uterus is about 12 weeks size with a large globular firm mass present anteriorly that probably is over 10 cm in diameter. It entirely fills her pelvis, and her uterus is fixed in the pelvis. Adnexa without masses, but difficult to assess due to patient's pelvic mass. Anus is normal. ASSESSMENT: Symptomatic uterine fibroids. PLAN: 1. Will get a pelvic ultrasound to reassess her uterus to make sure that the mass is just a big uterine fibroid. Hopefully we can assess her adnexa as well. 2. She will follow up with internal medicine to make sure her hypertension is treated adequately. 3. When her ultrasound results are back and her blood pressure is improved, the patient will come back to see me, and we can review the ultrasound findings and do some counseling about potentially doing a total abdominal hysterectomy on her. 4. Would definitely not want to schedule a hysterectomy until after her blood pressure is adequately controlled. However, after that is achieved, she probably is a good candidate for FLEX. TT: CT: CC: MALCOM PONCE VENEER REPAIRER MACHINE:[id number] C: 06/18/02 13:36 DOCUMENT: [id number] Qasim Jimenez PA-C - 06/18/2002 12:01 AM CST Progress Notes signed by Qasim Jimenez PA-C at 05/18/03 1603 Author: Qasim May PA-C Service: (none) Author Type: Physician Husbandry Technician Filed: 07/05/10 1329 Note Time: 06/18/02 0001 Status: Signed Print Shop Stenographer: Qasim May PA-C (Physician Husbandry Technician) NAME: KISHORE RAYA MR: [id number] ACCT: [id number] VISIT: [id number] DICTATING CLINICIAN: MALCOM PONCE JOB: [id number] CLINIC PROGRESS NOTE DATE OF VISIT: 06/18/2002 SUBJECTIVE: : 1960 Chart #: [id number] Kishore is a 42-year-old female in today in follow up of her blood pressure. She started Maxzide 25 about a week and a half to two weeks ago. States she has not had any side-effects from the medication, is urinating slightly more than usually does. Again no side-effects noted. She is tolerating it well. She denies any chest pain, shortness of breath, headaches or lightheadedness. States her at home readings at have been ranging from 114 to 144/74 to 98. PAST MEDICAL HISTORY: Hypertension, depression, hearing impairment. CURRENT MEDICATIONS: Zoloft 100 mg daily, Maxzide 25. ADR/ALLERGIES: NONE. TOBACCO USE: None. Further complete ROS is negative. OBJECTIVE: VS: BP: 138/94. Recheck 134/90. P: 68. Wt: 118 lb. This is a 42-year-old female in NAD. She is WH,WN. SKIN: Warm and dry. No rashes. No cyanosis. NECK: Supple without lymphadenopathy or thyromegaly. CARDIAC: Regular rate and rhythm with no murmurs, rubs, or gallops. LUNGS: Clear to auscultation bilaterally. Pulses are 2+ throughout. ASSESSMENT: Hypertension not adequately controlled. PLAN: Will move her up to Maxzide 50 one p.o. daily. We will recheck a BUN, creatinine and potassium. She will be contacted with the results of her test. She will return in two weeks for follow up. FINAL IMPRESSION: Hypertension not adequately controlled. TT: CT: [id number] C: 06/20/02 10:06 DOCUMENT: [id number] FLOW REGULATOR Qasim Jimenez PA-C - 06/04/2002 12:01 AM CST Progress Notes signed by Qasim Jimenez PA-C at 04/22/03 1043 Author: Qasim May PA-C Service: (none) Author Type: Physician Husbandry Technician Filed: 07/05/10 1317 Note Time: 06/04/02 0001 Status: Signed Print Shop Stenographer: Qasim May PA-C (Physician Husbandry Technician) NAME: KISHORE RAYA MR: [id number] ACCT: [id number] VISIT: [id number] DICTATING CLINICIAN: MALCOM PONCE JOB: [id number] CLINIC PROGRESS NOTE DATE OF VISIT: 06/04/2002 SUBJECTIVE: Kishore is in today in followup on her blood pressure, has been running consistently high blood pressures first noticed at her well exam back in April. She has been checking it at home on a regular schedule. States it runs consistently in the 150s/90s. She denies chest pain or shortness of breath. No headaches, visual changes. PAST MEDICAL HISTORY: Hearing impaired. Depression. CURRENT MEDICATIONS: Zoloft 100 mg daily. ADR/ALLERGIES: NONE. FAMILY HISTORY: Mother with hypertension, father with hypertension and diabetes. She is a nonsmoker. Is not getting regular exercise. Further complete ROS is negative. OBJECTIVE: VS: BP1: 154/94. BP2: 148/92. P: 64. Wt: 121 lb. This is a 42-year-old female in [facility]. She is WH, WN. SKIN: Warm and dry, no rashes, no cyanosis. NECK: Supple without lymphadenopathy or thyromegaly. CARDIAC: Regular rate and rhythm. There are no murmurs, rubs or gallops. LUNGS: Clear to auscultation bilaterally. ABDOMEN: Soft. Bowel sounds positive. No HSM, no masses, no tenderness. Pulses are 2+ throughout. DTRs are symmetrical throughout. There is no pedal edema noted. ASSESSMENT: Hypertension, uncontrolled. PLAN: Will get a CBC, BUN, creatinine, potassium, TSH and glucose. I am going to have her start on Maxzide 25 one p.o. daily. She may start taking an aspirin daily. I encouraged regular exercise, low-salt diet and plenty of water. She will return in two weeks for followup. She is agreeable with this plan. FINAL IMPRESSION: Hypertension, uncontrolled. TT: CT: [id number] C: 06/29/02 22:50 DOCUMENT: [id number] FLOW REGULATOR Phone Note, Clinician - 05/24/2002 12:01 AM CST Phone Note filed by Clinician Phone Note at 07/03/10 1050 Author: Clinician Phone Note Service: (none) Author Type: Resource Filed: 07/03/10 1050 Note Time: 05/24/02 0001 Status: Signed Print Shop Stenographer: Clinician Phone Note (Resource) TO: QASIM MAY FROM: CINTHYA CLAYTON LPN [phone] * PROVIDER MESSAGE: ROUTINE * 05/24/02 02:13PM * *WITHIN 4 HOURS * MESSAGE: ETHAN Meyers calling with BP * HOME PHONE:[phone] * readings: 04/23 150/98; 160/92; * WORK PHONE:[phone] * 2/25/ 172/110; 05/23 160/86. Sister * CONTACT PHONE:[phone] * had another question: pt has abd * PHARMACY: [phone] * brian n from fibroid tumor, questions * cub * if further work up is going to be done ? Questions is BCP will be used for the abd pain as discussed? SUBJECTIVE: ALLERGIES/SENSITIVITIES... MKDA 05/24/02 CURRENT MEDICATIONS... 05/24/02 PERTINENT PAST HISTORY... Hep B 05/24/02 WEIGHT: PATIENT IS NOT . PATIENT IS NOT NURSING. ASSESSMENT: BP READINGS/QUESTIONS FOLLOW UP FIBROID PLAN: DISPOSITION: NO DISPOSITION GIVEN CALL BY CINTHYA CLAYTON LPN 05/24/2002 02:05PM [phone] ADDENDUM: <> 05/24/2002 04:12PM by BENJAMIN MENDOZA: Per Qasim May PAC/// At phys. asked that they follow up with O B?CUE SELECTOR in regards to fibroid.I will not put her on OCP's because of elena vated BP's. Also asked that she follow up with me concerning continued elevated BP's. Message left for the Pt to call us back. <> 05/26/2002 09:28AM by BENJAMIN MENDOZA: Pts sister informed of the above message. She will schedule appts as r ecomended. 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 Irritated skin tags. Lower abdominal pain. Menorrhagia. Constipation. SUBJECTIVE: Kishore is a 42-year-old female in today for a well exam. She is hearing impaired and is here with her chemical plant manager and her sister. She has some concerns today. There are two areas under each breast which become very irritated with irritation from her bra. States they are two mole-like lesions, states she would like to have them removed. Second Concern: She is continuing to have the lower abdominal pain which she has been complaining of in the past. She was discovered to have uterine fibroids. She notes that she is having worsened pain around her periods. Her flow is very heavy for three days where she is changing her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 notify the [facility]. Specimen (Source) Anatomical Collection Method Collection Time Re ceived Time Location / / Volume Laterality 07/06/1999 10:32 AM CDT Arturo Wilson MD LAB_1 Performing Organization Address [place]/[facility] Phon e Number HP CONVERSION Anatomical Path-C (07/06/1999 7:19 AM CDT) P athologist Signature PAP Smear SEE TEXT No normal HP CONVERSION range Comment: Patient: KISHORE SHAFFER ? CERVICAL CYTOLOGY REPORT Pathology # ??[id number] ?Date Obtained: [id number] ? Date Received: [id number] LMP: ?06-21-99 CLINICAL HIST CERVICAL SMEAR SPECIMEN ADEQUACY: ?? Satisfactory. ENDOCERVICAL CELLS: ??Present. CYTOLOGIC IMPRESSION: Within Normal Limits (Negative). Verified 07/11/99 by: ??MB ? (electronic signature) Specimen (Source) Anatomical Collection Method Collection Time Re ceived Time Location / / Volume Laterality 07/06/1999 7:19 AM CDT Arturo Wilson MD LAB_1 Performing Organization Address City/State/ZIP Code Phon e Number HP CONVERSION US Pelvic Pediatric (No EV) (07/20/1998 2:30 PM CDT) Anatomical Region Laterality Modality Pelvis Other Specimen (Source) Anatomical Location Collection Method / Collectio n Time Received Time / Laterality Volume Narrative 07/20/1998 2:30 PM CDT CLINICAL DATA: ?PELV. PELVIC FULLNESS ON EXAM. FINDINGS: ?PELVIS AND TRANSVAGINAL SCANNING P ERFORMED. ?UTERUS MEASURES 7.0 X 4.1 X 5.7 CM . ??IN THE UPPER UTERUS TO ?THE RIGHT, THERE IS A CONTOUR DEFO RMITY WITH AN HOMOGENEOUS ?ECHODENSITY FELT TO REPRESENT A FI BROID MEASURING A MAXIMUM ?OF 4.2 CM. ??THE TRANSVERSE DIMENS ION DOES NOT INCLUDE THE ?FIBROID SEEN. THE REST OF THE U TERINE PARENCHYMA IS ALSO ?SOMEWHAT INHOMOGENEOUS IN THE ECHO PATTERN BUT A DISCRETE ?MASS-TYPE LESION IS NOT OTHERWISE NOTED. ??THE ENDOMETRIAL ?STRIPE MEASURES 6.5 MM IN THICKNES S. ??NABOTHIAN CYST IN THE ?CERVIX IS NOTED. ?THE ADNEXA WERE SCANNED AND BOTH O VARIES SEEN WITH THE RIGHT ?MEASURING MAXIMUM 2.1 CM WITH A 10 MM FOLLICLE. ??THE LEFT ?OVARY MEASURES MAXIMUM 2.6 CM WITH A 17 MM DOMINANT ?FOLLICLE. ??NO FREE FLUID. TECH-ID : ? LMK TRANS-ID: ? CRB Procedure Note Ramin Talbot - 05/19/2016Formatting o f this note might be different from the original. CLINICAL DATA: PELV. PELVIC FULLNESS ON EXAM. FINDINGS: PELVIS AND TRANSVAGINAL SCANNING PERFOR MED. UTERUS MEASURES 7.0 X 4.1 X 5.7 CM. IN THE UPPER UTERUS TO THE RIGHT, THERE IS A CONTOUR DEFORMITY WITH AN HOMOGENEOUS ECHODENSITY FELT TO REPRESENT A FIBROID MEASURING A MAXIMUM OF 4.2 CM. THE TRANSVERSE DIMENSION PETE S NOT INCLUDE THE FIBROID SEEN. THE REST OF THE UTERIN E PARENCHYMA IS ALSO SOMEWHAT INHOMOGENEOUS IN THE ECHO KRYSTIAN DARLINE BUT A DISCRETE MASS-TYPE LESION IS NOT OTHERWISE NOTED . THE ENDOMETRIAL STRIPE MEASURES 6.5 MM IN THICKNESS. NA BOTHIAN CYST IN THE CERVIX IS NOTED. THE ADNEXA WERE SCANNED AND BOTH OVARIE S SEEN WITH THE RIGHT MEASURING MAXIMUM 2.1 CM WITH A 10 MM F OLLICLE. THE LEFT OVARY MEASURES MAXIMUM 2.6 CM WITH A 17 MM DOMINANT FOLLICLE. NO FREE FLUID. TECH-ID : LMK TRANS-ID: CRB Arturo Wilson MD [facility] Anatomical Path-C (07/04/1998 7:24 AM CDT) athologist Signature PAP Smear SEE TEXT No normal HP CONVERSION range Comment: Patient: KISHORE SHAFFER ? CERVICAL CYTOLOGY REPORT Pathology # ??[id number] ?Date Obtained: ? Date Received: LMP: CLINICAL HIST CERVICAL SMEAR SPECIMEN ADEQUACY: ?? Satisfactory. ENDOCERVICAL CELLS: ??Present. CYTOLOGIC IMPRESSION: Within Normal Limits (Negative). Verified 07/11/98 by: ??MB ? (electronic signature) Specimen (Source) Anatomical Collection Method Collection Time Re ceived Time Location / / Volume Laterality 07/04/1998 7:24 AM CDT Arturo Wilson MD LAB_1 Performing Organization Address City/State/ZIP Code Phon e Number HP CONVERSION Complete Blood Count-W/Diff (06/15/1998 3:56 PM GAS FLOW REGULATOR) [facility] gist Method Time Signature White Blood Cell 10.9 3.8 - 11.0 HP CONVERSIO N Count K/cmm Red Blood Cell 4.89 3.70 - HP CONVERSION Count 5.20 m/cmm Hemoglobin 13.6 11.8 - HP CONVERSION 15.5 gm/dL Hematocrit 41.8 35.0 - HP CONVERSION 46.0 % Mean Corpuscular 85.5 80.0 - HP CONVERSION Volume 100.0 fl Mean Corpuscular 27.8 27.0 - HP CONVERSION Hemoglobin 34.0 pg Mean Corpuscular 32.5 32.0 - HP CONVERSION Hemoglobin Conc 36.5 gm/dL [place] RDW 14.1 11.0 - HP CONVERSION 15.0 % Platelet Count 298 140 - 450 HP CONVERSION k/cmm Differential Auto-Dif No normal HP CONVERSION Verify range Neutrophils 6.6 2.0 - 7.5 HP CONVERSION Absolute Count K/u Neutrophil 61.0 50.0 - HP CONVERSION 75.0 % Lymphocyte % 30.1 20.0 - HP CONVERSION 40.0 % Monocyte Percent 7.0 5.0 - 14.0 HP CONVERSIO N % Eosinophil 1.0 0.0 - 6.0 HP CONVERSION % Basophil % 0.9 0.0 - 2.0 HP CONVERSION % Specimen (Source) Anatomical Collection Method Collection Time Re ceived Time Location / / Volume Laterality 06/15/1998 3:56 PM GAS FLOW REGULATOR Arturo Wilson MD LAB_1 Performing Organization Address City/State/ZIP Code Phon e Number HP CONVERSION (ABNORMAL) Glucose (06/15/1998 3:56 PM GAS FLOW REGULATOR) Analysis Performed At [facility] logist Time Signature Length Of Fast 7.0 (LL) 12.0 - HP CONVERSION 24.0 Hours Lab Glucose 86 60 - 110 HP CONVERSION mg/dL Specimen (Source) Anatomical Collection Method Collection Time Re ceived Time Location / / Volume Laterality 06/15/1998 3:56 PM GAS FLOW REGULATOR Arturo Wilson MD LAB_1 Performing Organization Address City/State/ZIP Code Phon e Number HP CONVERSION Thyroid Stimulating Hormone (06/15/1998 3:56 PM GAS FLOW REGULATOR) athologist Signature Thyroid 2.47 0.20 - HP CONVERSION Stimulating 5.50 Hormone uIU/mL Specimen (Source) Anatomical Collection Method Collection Time Re ceived Time Location / / Volume Laterality 06/15/1998 3:56 PM GAS FLOW REGULATOR Arturo Wilson MD LAB_1 Performing Organization Address [place]/[facility]/ZIP Code Phon e Number HP CONVERSION Glucose (08/23/1997 9:24 AM CDT) athologist Signature Lab Glucose 99 60 - 110 HP CONVERSION mg/dL Specimen (Source) Anatomical Collection Method Collection Time Re ceived Time Location / / Volume Laterality 08/23/1997 9:24 AM CDT Melida Galindo MD LAB_1 Performing Organization Address [place]/[facility] Code Phon e Number HP CONVERSION Anatomical Path-C (08/23/1997 7:30 AM CDT) athologist Signature PAP Smear SEE TEXT No normal HP CONVERSION range Comment: Patient: KISHORE SHAFFER ? CERVICAL CYTOLOGY REPORT Pathology # ??[id number] ?Date Obtained: ? Date Received: LMP: ?08-02-97 CLINICAL HIST CERVICAL SMEAR SPECIMEN ADEQUACY: ?? Satisfactory. ENDOCERVICAL CELLS: ??Present. CYTOLOGIC IMPRESSION: Within Normal Limits (Negative). Verified 08/30/97 by: ??SN ? (electronic signature) Specimen (Source) Anatomical Collection Method Collection Time Re ceived Time Location / / Volume Laterality 08/23/1997 7:30 AM CDT Melida Galindo MD LAB_1 Performing Organization Address City/State/ZIP Code Phon e Number HP CONVERSION documented in this encounter Visit Diagnoses Not on filedocumented in this encounter Care Teams Ripshear Operator Relationship Specialty Start Date End Date Qasim Jimenez PA-C PCP - General 06/17/10 12/12/[address] [place] [address] documented as of this encounter
--- OUTSIDE RECORDS SUMMARY | 2022-02-26 10:54 | XMS_ITS | Encounter Summary ---
:1960 Author Organization [facility] Address [address], [place] [address] Care Team Providers Name Role Phone Pauline Jimenez PA-C Primary Care Provider Encounter Details Date Type Department Care Team Description 10/19/2003 PN Conversion Only [place] [address] [address] [place] [address] Social History Tobacco Use Types Packs/Day Years Used Date Smoking Tobacco: Never Assessed Sex Assigned at Date Recorded Not on file documented as of this encounter Plan of Treatment Not on filedocumented as of this encounter Visit Diagnoses Not on filedocumented in this encounter Care Teams Line Fisher Relationship Specialty Start Date End Date Pauline Jimenez PA-C PCP - General 06/17/10 12/12/14 [address] [place] [address] documented as of this encounter
--- OUTSIDE RECORDS SUMMARY | 2022-02-26 10:54 | XMS_ITS | Encounter Summary ---
:1960 Author Organization [facility] Address [address] [place] [address] Care Team Providers Name Role Phone Pauline Jimenez PA-C Primary Care Provider Encounter Details Date Type Department Care Team Description 11/25/2003 Office Visit [place] [facility] Inocente Chiu, PT Therapy [address] [facility] [address] [place] [address] [place] [address] [phone] Social History Tobacco Use Types Packs/Day Years Used Date Smoking Tobacco: Never Assessed Sex Assigned at Date Recorded Not on file documented as of this encounter Plan of Treatment Not on filedocumented as of this encounter Visit Diagnoses Not on filedocumented in this encounter Care Teams Brand Ambassador Promotional Model Relationship Specialty Start Date End Date Pauline Jimenez PA-C PCP - General 06/17/10 12/12/[address] [place] [address] documented as of this encounter
--- OUTSIDE RECORDS SUMMARY | 2022-02-26 10:54 | XMS_ITS | Encounter Summary ---
:1960 Author Organization [facility] Address [address], [place] [address] Care Team Providers Name Role Phone Pauline Jimenez PA-C Primary Care Provider Encounter Details Date Type Department Care Team Description 10/21/2003 Office Visit [facility] rochelle Pauline Jimenez PA-C [address] [facility] [address] [place] [address] [place] [address] [phone] (Wo rk) Social History Tobacco Use Types Packs/Day Years Used Date Smoking Tobacco: Never Assessed Sex Assigned at Date Recorded Not on file documented as of this encounter Progress Notes Pauline Jimenez PA-C - 10/21/2003 12:01 AM CDT Progress Notes signed by Pauline Jimenez PA-C at 12/12/03 2216 Author: Pauline West PA-C Service: (none) Author Type: Physician Radiology Orderly Filed: 07/05/10 [id number] Note Time: 10/21/03 0001 Status: Signed Flight Operations Manager: Pauline West PA-C (Physician Radiology Orderly) NAME: WOO RAYA MR: [id number] ACCT: [id number] VISIT: [id number] DICTATING CLINICIAN: MALCOM PONCE JOB: [id number] CLINIC PROGRESS NOTE DATE OF VISIT: 10/21/2003 SUBJECTIVE: Woo is a 43-year-old female in today concerned with lower neck and upper back pain. Describes it as a shooting pain. Has been present for the last 2 months. Denies any injury. Pain is rated as a 5-7/10. Denies any radiation into the upper extremities. No weakness, no numbness. Has never had this problem before. Also needs to get a mammogram for screening. PAST MEDICAL HISTORY: Hearing impairment, depression. Has had a hysterectomy, abdominoplasty, history of pulmonary embolus. CURRENT MEDICATIONS: Reviewed in [employer]. ADR/ALLERGIES: REVIEWED IN [employer]. SOCIAL HISTORY: She is a nonsmoker. Lives with her parents. Further complete ROS negative. OBJECTIVE: VS: BP: 134/88. T: 97.3. P: 60. Wt: 115-1/2 lb. This is a 43-year-old female in [facility]. She is present today with an hourly sign language interpreter. She is alert and oriented times three. SKIN: Warm and dry, no rashes. NECK: Supple. No lymphadenopathy or thyromegaly. CARDIAC: Regular rate and rhythm with no murmurs, rubs or gallops. LUNGS: CTAB. Vertebral bodies are symmetrical and nontender. There is paravertebral muscle tenderness present in the lower cervical and upper thoracic region extending onto the proximal portions of each shoulder. She has full range of motion of both shoulders without limitation or pain. Strength is equal and appropriate in the upper extremity bilaterally. Diminished range of motion of the cervical spine on forward flexion, twisting and sask-qb-rfor bending due to pain. Healthcare Business Analyst strength is equal bilaterally. DTRs are symmetrical bilaterally. Radial pulses equal and appropriate bilaterally. Sensation is intact to light touch in both extremities. ASSESSMENT: Myofascial neck pain. PLAN: Physical therapy referral given. She will work on stretching and strengthening exercises for the neck and proximal shoulders. Did give her paperwork to schedule a mammogram. She will return to clinic if symptoms persist or worsen. Encouraged use of hzhn-olk-mrmxwye Advil or Tylenol to help with pain. She is agreeable. FINAL IMPRESSION: Myofascial neck pain. TLW:[id number] C: 10/25/03 10:29 DOCUMENT: [id number] documented in this encounter Plan of Treatment Not on filedocumented as of this encounter Visit Diagnoses Not on filedocumented in this encounter Care Teams Outreach Director Relationship Specialty Start Date End Date Pauline Jimenez PA-C PCP - General 06/17/10 12/12/[address] [place] [address] documented as of this encounter
--- OUTSIDE RECORDS SUMMARY | 2022-02-26 10:54 | XMS_ITS | Encounter Summary ---
:1960 Author Organization [facility] Address [address] [address] Care Team Providers Name Role Phone Pauline Jimenez PA-C Primary Care Provider Encounter Details Date Type Department Care Team Description 09/13/2003 PN Conversion Only HIND[place] CONVERSION Ashley Jimenez PA-C [address] [place] [address] (Wo rk) Social History Tobacco Use Types Packs/Day Years Used Date Smoking Tobacco: Never Assessed Sex Assigned at Date Recorded Not on file documented as of this encounter Plan of Treatment Not on filedocumented as of this encounter Procedures Procedure Name Priority Date/Time Associated Comments Diagnosis PROTEIN S Routine 09/13/2003 3:35 PM Results f or this CDT procedure are i n the results section. PROTEIN C ACTIVITY Routine 09/13/2003 3:35 PM Res ults for this CDT procedure are i n the results section. FACTOR V LEIDEN BY PCR Routine 09/13/2003 3:35 PM Results for this CDT procedure are i n the results section. COMPLETE BLOOD COUNT Routine 09/13/2003 3:35 PM R esults for this W/3DIFF CDT procedure are i n the results section. ANTITHROMBIN 3 ACTIVITY Routine 09/13/2003 3:35 PM Results for this CDT procedure are i n the results section. APTT (ACTIVATED PARTIAL Routine 09/13/2003 3:35 PM Results for this THROMBOPLASTIN TIME CDT procedur e are in the results section. INR/PROTIME Routine 09/13/2003 3:35 PM Results f or this CDT procedure are i n the results section. documented in this encounter Results INR/Protime (09/13/2003 3:35 PM CDT) Analysis Performed At [facility] logist Time Signature Prothrombin Time 10.7 8.9 - 11.1 HP CONVERSIO N sec INR 1.1 No normal HP CONVERSION range Comment: Recommendations for INR in warfarin ther apy: (Chest, Vol. 119, No. 1, Mar 2000, Suppl ement). Prevention and treatment of venous throm bosis; ? INR 2.0-3.0 Treatment of PE; Prevention of systemic embolism due to prosthetic tissue heart valves, b ileaflet mechanical valves in the aortic position , acute WI, valvular heart disease and atrial fibril lation. Mechanical prosthetic valves, (high risk ). ? INR 2.5-3.5 Prevention of recurrent myocardial infar ct. These recommended ranges serve as guidel jorge. Adjustment outside these ranges may be clinically indicated. Specimen (Source) Anatomical Collection Method Collection Time Re ceived Time Location / / Volume Laterality 09/13/2003 3:35 PM CDT Pauline Jimneez PA-C LAB_1 Performing Organization Address City/State/ZIP Code Phon e Number HP CONVERSION Complete Blood Count W/3Diff (09/13/2003 3:35 PM CDT) [facility] gist Method Time Signature White Blood Cell 7.1 3.8 - 11.0 HP CONVERSIO N Count K/cmm Red Blood Cell 4.40 3.70 - HP CONVERSION Count 5.20 m/cmm Hemoglobin 12.6 11.8 - HP CONVERSION 15.5 gm/dL Hematocrit 38.1 35.0 - HP CONVERSION 46.0 % Mean Corpuscular 86.7 80.0 - HP CONVERSION Volume 100.0 fl Mean Corpuscular 28.6 27.0 - HP CONVERSION Hemoglobin 34.0 pg Mean Corpuscular 33.1 32.0 - HP CONVERSION Hemoglobin Conc 36.5 gm/dL [place] RDW 14.2 11.0 - HP CONVERSION 15.0 % Platelet Count 284 140 - 450 HP CONVERSION k/cmm Differential Auto-Dif No normal HP CONVERSION Verify range Granulocyte 4.1 2.0 - 7.5 HP CONVERSION Absolute K/u Comment: Absolute granulocytes=combined absolute number of neutrophils, eosinophils and basophils. % Granulocytes 58.4 50.0 - 83.0 % HP CONVERSI ON Comment: Percent Granulocytes=combined percentage of neutrophils, eosinophils and basophils. Lymphocyte % 35.5 20.0 - 40.0 % HP CONVERSION Monocyte 6.1 5.0 - 14.0 % HP CONVERSION Comment: See physician copy for explanat ion of granulocyte # and % values. Specimen (Source) Anatomical Collection Method Collection Time Re ceived Time Location / / Volume Laterality 09/13/2003 3:35 PM CDT Pauline Jimenez PA-C LAB_1 Performing Organization Address [facility] Code Phon e Number HP CONVERSION APTT (Activated Partial Thromboplastin Time) (09/13/2003 3:35 PM CDT) [employer] Method Time Signature Partial 27.7 22.3 - HP CONVERSION Thromboplastin Time 29.3 sec Specimen (Source) Anatomical Collection Method Collection Time Re ceived Time Location / / Volume Laterality 09/13/2003 3:35 PM CDT Pauline Jimenez PA-C LAB_1 Performing Organization Address [place]/[facility] Code Phon e Number HP CONVERSION Factor V Leiden By PCR (09/13/2003 3:35 PM CDT) [employer] Method Time Signature Factor V NEGATIVE No normal HP CONVERSION Leiden (F5) range R506Q Mutation Comment: NEGATIVE: The sample is negative for fac tor V Leiden, R506Q polymorphism. This result has been reviewed and approv ed by Lorie Botello M.D. Interpretive data: TEST INFORMATION: Factor V Leiden by PCR and Fluorescence ?Monitoring, w [facility] blood The factor V Leiden mutation is [...] out. Patient DNA was assayed for the [id number] u Leiden mutation in the factor V gene by polymerase chain reaction (PCR), and fluorescence monitoring using hybrid ization probes. Sensitivity and specificity for detectio n of this mutation is 99.9 percent. Due to the unique nature of genetic susc eptibility testing, patients should receive pre-pancho t and post-test counseling. ??Informed consent is recomm ended. The performance characteristics of this test were validated by [employer] The U.S. Food and Drug Administration (FDA) has not approv ed this test. However, FDA approval is currently not r equired for clinical use of this test. The results a re not intended to be used as the sole means for clinica l diagnosis or patient management decisions. [employer] is au thorized under Clinical Laboratory Improvement Amendmen ts (CLIA) and by all states to perform high-complexity te sting. This test is performed pursuant to an ag reement with [employer] Specimen (Source) Anatomical Collection Method Collection Time Re ceived Time Location / / Volume Laterality 09/13/2003 3:35 PM CDT Pauline العراقي-C LAB_1 Performing Organization Address City/State/ZIP Code Phon e Number HP CONVERSION (ABNORMAL) Protein C Activity (09/13/2003 3:35 PM CDT) P athologist Signature Protein C 145 (H) 70 - 130 % HP CONVERSION Chromogen Specimen (Source) Anatomical Collection Method Collection Time Re ceived Time Location / / Volume Laterality 09/13/2003 3:35 PM CDT Pauline Jimenez PA-C LAB_1 Performing Organization Address City/State/ZIP Code Phon e Number HP CONVERSION Protein S (09/13/2003 3:35 PM CDT) P athologist Signature Protein S See Note % HP CONVERSION Comment: Protein S Free [place] ? 85 % ? 65-125 Analyte Specific Reagents (ASRs) are not used in many laboratory tests necessary for standard medical care and generally do not require FDA approval. This test was developed and its perform ance characteristics determined by [facility]. ??It has not been cleared or approved by the [place] Food and D rug Administration. Specimen (Source) Anatomical Collection Method Collection Time Re ceived Time Location / / Volume Laterality 09/13/2003 3:35 PM CDT Pauline Jimenez PA-C LAB_1 Performing Organization Address [place]/[facility] Code Phon e Number HP CONVERSION Antithrombin 3 Activity (09/13/2003 3:35 PM CDT) Analysis Performed At [facility] Time Signature Antithrombin 3 108 80 - 120 % HP CONVERSION Chromogenic Specimen (Source) Anatomical Collection Method Collection Time Re ceived Time Location / / Volume Laterality 09/13/2003 3:35 PM CDT Pauline Jimenez PA-C LAB_1 Performing Organization Address [facility] Phon e Number HP CONVERSION documented in this encounter Visit Diagnoses Not on filedocumented in this encounter Care Teams Director Of Outreach Relationship Specialty Start Date End Date Pauline Jimenez PA-C PCP - General 06/17/10 12/12/14 [address] [place] [address] documented as of this encounter
--- OUTSIDE RECORDS SUMMARY | 2022-02-26 10:54 | XMS_ITS | Encounter Summary ---
:1960 Author Organization [facility] Address [address] [address] Care Team Providers Name Role Phone Pauline Jimenez PA-C Primary Care Provider Encounter Details Date Type Department Care Team Description 06/21/2003 PN Conversion Only UATSDIN CONVERSION Ashley Jimenez PA-C [address] [place] [address] (Wo rk) Social History Tobacco Use Types Packs/Day Years Used Date Smoking Tobacco: Never Assessed Sex Assigned at Date Recorded Not on file documented as of this encounter Plan of Treatment Not on filedocumented as of this encounter Procedures Procedure Name Priority Date/Time Associated Diagnosis Comme nts INR/PROTIME Routine 06/21/2003 4:15 PM Results f or this CDT procedure are i n the results section . documented in this encounter Results (ABNORMAL) INR/Protime (06/21/2003 4:15 PM CDT) [facility] Method Time Signature Prothrombin 22.9 (H) 8.9 - 11.1 HP CONVERSION Time sec INR 2.2 No normal HP CONVERSION range Comment: Recommendations for INR in warfarin ther apy: (Chest, Vol. 119, No. 1, Mar 2000, Suppl ement). Prevention and treatment of venous throm bosis; ? INR 2.0-3.0 Treatment of PE; Prevention of systemic embolism due to prosthetic tissue heart valves, b ileaflet mechanical valves in the aortic position , acute [place], valvular heart disease and atrial fibril lation. Mechanical prosthetic valves, (high risk ). ? INR 2.5-3.5 Prevention of recurrent myocardial infar ct. These recommended ranges serve as guidel jorge. Adjustment outside these ranges may be clinically indicated. Specimen (Source) Anatomical Collection Method Collection Time Re ceived Time Location / / Volume Laterality 06/21/2003 4:15 PM CDT Pauline Jimenez PA-C LAB_1 Performing Organization Address City/State/ZIP Code Phon e Number HP CONVERSION documented in this encounter Visit Diagnoses Not on filedocumented in this encounter Care Teams Lottery Office Manager Relationship Specialty Start Date End Date Pauline Jimenez PA-C PCP - General 06/17/10 12/12/[address] [place] [address] documented as of this encounter
--- OUTSIDE RECORDS SUMMARY | 2022-02-26 10:54 | XMS_ITS | Encounter Summary ---
:1960 Author Organization [facility] Address [address] [address] Care Team Providers Name Role Phone Qasim Jimenez PA-C Primary Care Provider Reason for Visit Reason Comments Other Encounter Details Date Type Department Care Team Description 09/14/2003 Telephone [facility], Message Other [address] [place], [place] [id number] Social History Tobacco Use Types Packs/Day Years Used Date Smoking Tobacco: Never Assessed Sex Assigned at Date Recorded Not on file documented as of this encounter [facility], Message - 09/14/2003 9:40 AM CDT Phone Note filed by [facility] at 07/02/10 1307 Author: [facility] Service: (none) Author Type: (none) Filed: 07/02/10 1306 Note Time: 09/14/03 0940 Status: Signed Core Cleaner: [facility] called to inform pt of INR results and was told that pt is no longer taking coumadin, she discontinued taking this 1 month ago. looking at your note from August 11, it looks like this is true pending her labs being normal. if this is true can we file her chart. Created on 14Sep2003 9:40am by ROSALES MUNROE On 14Sep2003 11:12am QASIM MAY wrote: Yes, you may file her chart. Acknowledged by ROSALES MUNROE on 11:31am documented in this encounter Plan of Treatment Not on filedocumented as of this encounter Visit Diagnoses Not on filedocumented in this encounter Care Teams Automotive Assembler Relationship Specialty Start Date End Date Qasim Jimenez PA-C PCP - General 06/17/10 12/12/[address] [place] [address] documented as of this encounter
--- OUTSIDE RECORDS SUMMARY | 2022-02-26 10:54 | XMS_ITS | Encounter Summary ---
:1960 Author Organization [facility] Address [address] [place] [address] Care Team Providers Name Role Phone Pauline Jimenez PA-C Primary Care Provider Encounter Details Date Type Department Care Team Description 11/04/2003 Office Visit [facility]iu, PT Therapy [address] [facility] [address] [place] [address] [place] [address] [phone] Social History Tobacco Use Types Packs/Day Years Used Date Smoking Tobacco: Never Assessed Sex Assigned at Date Recorded Not on file documented as of this encounter Plan of Treatment Not on filedocumented as of this encounter Visit Diagnoses Not on filedocumented in this encounter Care Teams Building Maintenance Worker Relationship Specialty Start Date End Date Pauline Jimenez PA-C PCP - General 06/17/10 12/12/[address] [place] [address] documented as of this encounter
--- OUTSIDE RECORDS SUMMARY | 2022-02-26 10:54 | XMS_ITS | Encounter Summary ---
:1960 Author Organization [facility] Address [address] [place] [address] Care Team Providers Name Role Phone Pauline Jimenez PA-C Primary Care Provider Encounter Details Date Type Department Care Team Description 10/28/2003 Office Visit [place] [facility] Chiu, PT Therapy [address] [facility] [address] [place] [address] [place] [address] [phone] Social History Tobacco Use Types Packs/Day Years Used Date Smoking Tobacco: Never Assessed Sex Assigned at Date Recorded Not on file documented as of this encounter Plan of Treatment Not on filedocumented as of this encounter Visit Diagnoses Not on filedocumented in this encounter Care Teams Forensic Nurse Relationship Specialty Start Date End Date Pauline Jimenez PA-C PCP - General 06/17/10 12/12/[address] [place] [address] documented as of this encounter
--- OUTSIDE RECORDS SUMMARY | 2022-02-26 10:55 | XMS_ITS | Encounter Summary ---
:1960 Author Organization [facility] Address [address] [address] Care Team Providers Name Role Phone Pauline Jimenez PA-C Primary Care Provider Encounter Details Date Type Department Care Team Description 03/23/2003 PN Conversion Only CONGREGATIONAL CONVERSION Ashley Jimenez PA-C [address] [place], [place] [address] (Wo rk) Social History Tobacco Use Types Packs/Day Years Used Date Smoking Tobacco: Never Assessed Sex Assigned at Date Recorded Not on file documented as of this encounter Plan of Treatment Not on filedocumented as of this encounter Procedures Procedure Name Priority Date/Time Associated Diagnosis Comme nts INR/PROTIME Routine 03/23/2003 3:41 PM Results f or this RIBBON BLOCKMAKER procedure are i n the results section . documented in this encounter Results (ABNORMAL) INR/Protime (03/23/2003 3:41 PM RIBBON BLOCKMAKER) [facility] Method Time Signature Prothrombin 22.9 (H) [...] valves in the aortic position , acute [place], valvular heart disease and atrial fibril lation. Mechanical prosthetic valves, (high risk ). ? INR 2.5-3.5 Prevention of recurrent myocardial infar ct. These recommended ranges serve as guidel jorge. Adjustment outside these ranges may be clinically indicated. Specimen (Source) Anatomical Collection Method Collection Time Re ceived Time Location / / Volume Laterality 03/23/2003 3:41 PM RIBBON BLOCKMAKER Pauline Jimenez PA-C LAB_1 Performing Organization Address City/State/ZIP Code Phon e Number HP CONVERSION documented in this encounter Visit Diagnoses Not on filedocumented in this encounter Care Teams Power Lineman Relationship Specialty Start Date End Date Pauline Jimenez PA-C PCP - General 06/17/10 12/12/[address] [place] [address] documented as of this encounter
--- OUTSIDE RECORDS SUMMARY | 2022-02-26 10:55 | XMS_ITS | Encounter Summary ---
:1960 Author Organization [facility] Address [address] [place] [address] Care Team Providers Name Role Phone Pauline Jimenez PA-C Primary Care Provider Encounter Details Date Type Department Care Team Description 11/30/2002 PN Conversion Only [facility] [address], Plastic Surgery [address] [facility] [place] [address] [phone] Social History Tobacco Use Types Packs/Day Years Used Date Smoking Tobacco: Never Assessed Sex Assigned at Date Recorded Not on file documented as of this encounter Plan of Treatment Not on filedocumented as of this encounter Visit Diagnoses Not on filedocumented in this encounter Care Teams Hose Inspector Relationship Specialty Start Date End Date Pauline Jimenez PA-C PCP - General 06/17/10 12/12/[address] [place] [address] documented as of this encounter
--- OUTSIDE RECORDS SUMMARY | 2022-02-26 10:55 | XMS_ITS | Encounter Summary ---
:1960 Author Organization [facility] Address [address], [place] [address] Care Team Providers Name Role Phone Shoaibaminata Pauline W SARIKA Primary Care Provider Encounter Details Date Type Department Care Team Description 04/21/2002 PN Conversion Only SIKHISM CONVERSION Domonique Todd MD [address] [place], [place] [id number] (Wo rk) Social History Tobacco Use Types Packs/Day Years Used Date Smoking Tobacco: Never Assessed Sex Assigned at Date Recorded Not on file documented as of this encounter Plan of Treatment Not on filedocumented as of this encounter Procedures Procedure Name Priority Date/Time Associated Diagnosis Comme nts ANATOMICAL PATH-C Routine 04/21/2002 2:19 PM Resu lts for this NIGHT COURT MAGISTRATE procedure are i n the results section. documented in this encounter Results Anatomical Path-C (04/21/2002 2:[address] MAGISTRATE) P athologist Signature PAP Smear SEE TEXT No normal HP CONVERSION range Comment: Patient: WOO ECHOLS ? CERVICAL CYTOLOGY REPORT Pathology # ??[id number] ?Date Obtained: ? Date Received: LMP: CLINICAL HIST ? PRV SMR 9 [id number] WNL CONVENTIONAL PAP SMEAR-CERVIX SPECIMEN ADEQUACY: ?? Satisfactory. ENDOCERVICAL CELLS: ??Present. CYTOLOGIC IMPRESSION: Negative for intraepithelial lesion or m alignancy. Verified 05/14/02 by: ??SN ? (electronic signature) Specimen (Source) Anatomical Collection Method Collection Time Re ceived Time Location / / Volume Laterality 04/21/2002 2:[address] MAGISTRATE Domonique Todd MD LAB_1 Performing Organization Address City/State/ZIP Code Phon e Number HP CONVERSION documented in this encounter Visit Diagnoses Not on filedocumented in this encounter Care Teams Creeler Relationship Specialty Start Date End Date Pauline Jimenez PA-C PCP - General 06/17/10 12/12/[address] [place] [address] documented as of this encounter
--- OUTSIDE RECORDS SUMMARY | 2022-02-26 10:55 | XMS_ITS | Encounter Summary ---
:1960 Author Organization [facility] Address [address] [address] Care Team Providers Name Role Phone Pauline Jimenez PA-C Primary Care Provider Encounter Details Date Type Department Care Team Description 06/18/2002 PN Conversion Only CAODAISM CONVERSION Domonique Todd MD [address] [place] [address] (Wo rk) Social History Tobacco Use Types Packs/Day Years Used Date Smoking Tobacco: Never Assessed Sex Assigned at Date Recorded Not on file documented as of this encounter Plan of Treatment Not on filedocumented as of this encounter Procedures Procedure Name Priority Date/Time Associated Diagnosis Comme nts CREATININE / GFR Routine 06/18/2002 11:04 AM Resu lts for this DRUM CARRIER procedure are i n the results section. POTASSIUM Routine 06/18/2002 11:04 AM Results for this DRUM CARRIER procedure are i n the results section. BUN Routine 06/18/2002 11:04 AM Results for this DRUM CARRIER procedure are i n the results section. documented in this encounter Results BUN (06/18/2002 11:04 AM DRUM CARRIER) P athologist Signature Blood Urea 14 5 - 26 HP CONVERSION Nitrogen mg/dL Specimen (Source) Anatomical Collection Method Collection Time Re ceived Time Location / / Volume Laterality 06/18/2002 11:04 AM DRUM CARRIER Pauline Jimenez PA-C LAB_1 Performing Organization Address City/State/ZIP Code Phon e Number HP CONVERSION Creatinine / GFR (06/18/2002 11:04 AM DRUM CARRIER) athologist Signature Creatinine 1.0 0.5 - 1.5 HP CONVERSION Serum mg/dL Specimen (Source) Anatomical Collection Method Collection Time Re ceived Time Location / / Volume Laterality 06/18/2002 11:04 AM DRUM CARRIER Pauline Jimenez PA-C LAB_1 Performing Organization Address [facility] Phon e Number HP CONVERSION Potassium (06/18/2002 11:04 AM DRUM CARRIER) athologist Signature Potassium 4.0 3.5 - 5.2 HP CONVERSION meq/L Specimen (Source) Anatomical Collection Method Collection Time Re ceived Time Location / / Volume Laterality 06/18/2002 11:04 AM DRUM CARRIER Pauline Jimenez PA-C LAB_1 Performing Organization Address [facility] Phon e Number HP CONVERSION documented in this encounter Visit Diagnoses Not on filedocumented in this encounter Care Teams Anode Adjuster Relationship Specialty Start Date End Date Pauline Jimenez PA-C PCP - General 06/17/10 12/12/[address] [place] [address] documented as of this encounter
--- OUTSIDE RECORDS SUMMARY | 2022-02-26 10:55 | XMS_ITS | Encounter Summary ---
:1960 Author Organization [facility] Address [address] [address] Care Team Providers Name Role Phone Pauline Jimenez PA-C Primary Care Provider Encounter Details Date Type Department Care Team Description 01/19/2003 External Contact YAZIDI CONVERSION Joseline Jimenez cia, PA-C [address] [place], [place] [address] (Wo rk) Social History Tobacco Use Types Packs/Day Years Used Date Smoking Tobacco: Never Assessed Sex Assigned at Date Recorded Not on file documented as of this encounter Plan of Treatment Not on filedocumented as of this encounter Procedures Procedure Name Priority Date/Time Associated Diagnosis Comme nts INR/PROTIME Routine 01/31/2003 10:30 AM Results for this ABORIGINAL LIAISON OFFICER procedure are i n the results section . INR/PROTIME Routine 01/27/2003 10:30 AM Results for this ABORIGINAL LIAISON OFFICER procedure are i n the results section . INR/PROTIME Routine 01/25/2003 9:25 AM Results f or this ABORIGINAL LIAISON OFFICER procedure are i n the results section . INR/PROTIME Routine 01/24/2003 11:00 AM Results for this ABORIGINAL LIAISON OFFICER procedure are i n the results section . INR/PROTIME Routine 01/23/2003 12:30 PM Results for this ABORIGINAL LIAISON OFFICER procedure are i n the results section . INR/PROTIME Routine 01/22/2003 12:15 PM Results for this ABORIGINAL LIAISON OFFICER procedure are i n the results section . INR/PROTIME Routine 01/21/2003 10:40 AM Results for this ABORIGINAL LIAISON OFFICER procedure are i n the results section . URINE CULTURE Routine 01/20/2003 2:17 PM Results for this ABORIGINAL LIAISON OFFICER procedure are i n the results section . INR/PROTIME Routine 01/20/2003 2:17 PM Results f or this ABORIGINAL LIAISON OFFICER procedure are i n the results section . INR/PROTIME Routine 01/19/2003 1:15 PM Results f or this ABORIGINAL LIAISON OFFICER procedure are i n the results section . documented in this encounter Results (ABNORMAL) INR/Protime (01/31/2003 10:30 AM ABORIGINAL LIAISON OFFICER) [facility] Method Time Signature Prothrombin 23.0 (H) 8.9 - 11.1 HP CONVERSION Time [...] ceived Time Location / / Volume Laterality 01/31/2003 10:30 AM ABORIGINAL LIAISON OFFICER Pauline Jimenez PA-C LAB_1 Performing Organization Address City/State/ZIP Code Phon e Number HP CONVERSION (ABNORMAL) INR/Protime (01/27/2003 10:30 AM ABORIGINAL LIAISON OFFICER) [facility] Method Time Signature Prothrombin 37.9 (H) 8.9 - 11.1 HP CONVERSION Time sec INR 3.5 No normal HP CONVERSION range Comment: Recommendations [...] ceived Time Location / / Volume Laterality 01/27/2003 10:30 AM ABORIGINAL LIAISON OFFICER Pauline العراقي-C LAB_1 Performing Organization Address [facility] Phon e Number HP CONVERSION (ABNORMAL) INR/Protime (01/25/2003 9:25 AM ABORIGINAL LIAISON OFFICER) [facility] Method Time Signature Prothrombin 26.3 (H) 8.9 - 11.1 HP CONVERSION Time sec INR 2.5 No normal HP CONVERSION range Comment: Recommendations [...] ceived Time Location / / Volume Laterality 01/25/2003 9:25 AM ABORIGINAL LIAISON OFFICER Pauline Jimenez PA-C LAB_1 Performing Organization Address City/State/ZIP Code Phon e Number HP CONVERSION (ABNORMAL) INR/Protime (01/24/2003 11:00 AM ABORIGINAL LIAISON OFFICER) [facility] Method Time Signature Prothrombin 24.1 (H) 8.9 - 11.1 HP CONVERSION Time sec INR 2.3 No normal HP CONVERSION range Comment: Recommendations [...] ceived Time Location / / Volume Laterality 01/24/2003 11:00 AM ABORIGINAL LIAISON OFFICER Pauline W Barbara العراقي-C LAB_1 Performing Organization Address [facility] Phon e Number HP CONVERSION (ABNORMAL) INR/Protime (01/23/2003 12:30 PM ABORIGINAL LIAISON OFFICER) [employer] Method Time Signature Prothrombin 29.5 (H) 8.9 - 11.1 HP CONVERSION Time sec INR 2.7 No normal HP CONVERSION range Comment: Recommendations [...] ceived Time Location / / Volume Laterality 01/23/2003 12:30 PM ABORIGINAL LIAISON OFFICER Pauline W Shoaibe PA-C LAB_1 Performing Organization Address [facility] Phon e Number HP CONVERSION (ABNORMAL) INR/Protime (01/22/2003 12:15 PM ABORIGINAL LIAISON OFFICER) Patholo gist Method Time Signature Prothrombin 25.1 (H) 8.9 - 11.1 HP CONVERSION Time sec INR 2.4 No normal HP CONVERSION range Comment: Recommendations [...] ceived Time Location / / Volume Laterality 01/22/2003 12:15 PM ABORIGINAL LIAISON OFFICER Pauline Jimenez PA-C LAB_1 Performing Organization Address City/State/ZIP Code Phon e Number HP CONVERSION (ABNORMAL) INR/Protime (01/21/2003 10:40 AM ABORIGINAL LIAISON OFFICER) [employer] [facility] Method Time Signature Prothrombin 18.3 (H) 8.9 - 11.1 HP CONVERSION Time sec INR 1.7 No normal HP CONVERSION range Comment: Recommendations [...] ceived Time Location / / Volume Laterality 01/21/2003 10:40 AM ABORIGINAL LIAISON OFFICER Pauline العراقي-Cyndi LAB_1 Performing Organization Address [facility] Phon e Number HP CONVERSION (ABNORMAL) INR/Protime (01/20/2003 2:17 PM ABORIGINAL LIAISON OFFICER) Patholo gist Method Time Signature Prothrombin 14.5 (H) 8.9 - 11.1 HP CONVERSION Time sec INR 1.4 No normal HP CONVERSION range Comment: Recommendations [...] ceived Time Location / / Volume Laterality 01/20/2003 2:17 PM ABORIGINAL LIAISON OFFICER Pauline Malone Barbara العراقي-C LAB_1 Performing Organization Address [facility] Phon e Number HP CONVERSION Urine Culture (01/20/2003 2:17 PM ABORIGINAL LIAISON OFFICER) Analysis Performed At Patho logist Time Signature Urine Culture SEE TEXT HP CONVERSION Comment: Patient: WOO RAYA Culture, Urine @ ?Collected: ??[id number] Source: Urine, U ?Processed: ??[id number] Final Report ------ ?[id number] ??[id number] No growth @ = URINE CULTURE Performed at ??[address] [facility], [place] ?[address] Specimen (Source) Anatomical Collection Method Collection Time Re ceived Time Location / / Volume Laterality 01/20/2003 2:17 PM ABORIGINAL LIAISON OFFICER Pauline العراقي-C LAB_1 Performing Organization Address [facility] Phon e Number HP CONVERSION (ABNORMAL) INR/Protime (01/19/2003 1:15 PM ABORIGINAL LIAISON OFFICER) [facility] gist Method Time Signature Prothrombin 13.0 (H) 8.9 - 11.1 HP CONVERSION Time sec INR 1.3 No normal HP CONVERSION range Comment: Recommendations [...] ceived Time Location / / Volume Laterality 01/19/2003 1:15 PM ABORIGINAL LIAISON OFFICER Pauline العراقي-C LAB_1 Performing Organization Address [facility] Phon e Number HP CONVERSION documented in this encounter Visit Diagnoses Not on filedocumented in this encounter Care Teams Kiln Mechanic Relationship Specialty Start Date End Date Ische, Pauline W, PA-C PCP - General 06/17/10 12/12/[address] [place] [address] documented as of this encounter
--- OUTSIDE RECORDS SUMMARY | 2022-02-26 10:55 | XMS_ITS | Encounter Summary ---
:1960 Author Organization [facility] Address [address], [place] [address] Care Team Providers Name Role Phone Pauline Jimenez PA-C Primary Care Provider Encounter Details Date Type Department Care Team Description 12/10/2002 PN Conversion Only BUDDHISM CONVERSION Ashley Jimenez PA-C [address] [place], [place] [address] (Wo rk) Social History Tobacco Use Types Packs/Day Years Used Date Smoking Tobacco: Never Assessed Sex Assigned at Date Recorded Not on file documented as of this encounter Plan of Treatment Not on filedocumented as of this encounter Procedures Procedure Name Priority Date/Time Associated Diagnosis Comme nts CREATININE / GFR Routine 12/10/2002 9:31 AM Resul ts for this CDT procedure are i n the results section. HEMOGLOBIN, BLOOD Routine 12/10/2002 9:31 AM Resu lts for this CDT procedure are i n the results section. POTASSIUM Routine 12/10/2002 9:31 AM Results f or this CDT procedure are i n the results section. BUN Routine 12/10/2002 9:31 AM Results f or this CDT procedure are i n the results section. documented in this encounter Results BUN (12/10/2002 9:31 AM CDT) P athologist Signature Blood Urea 12 5 - 26 HP CONVERSION Nitrogen mg/dL Specimen (Source) Anatomical Collection Method Collection Time Re ceived Time Location / / Volume Laterality 12/10/2002 9:31 AM CDT Pauline العراقيMeganC LAB_1 Performing Organization Address City/[facility] Code Phon e Number HP CONVERSION Creatinine / GFR (12/10/2002 9:31 AM CDT) athologist Signature Creatinine 0.8 0.5 - 1.5 HP CONVERSION Serum mg/dL Specimen (Source) Anatomical Collection Method Collection Time Re ceived Time Location / / Volume Laterality 12/10/2002 9:31 AM CDT Pauline ANDREC LAB_1 Performing Organization Address City/[facility] Code Phon e Number HP CONVERSION Potassium (12/10/2002 9:31 AM CDT) athologist Signature Potassium 3.6 3.5 - 5.2 HP CONVERSION meq/L Specimen (Source) Anatomical Collection Method Collection Time Re ceived Time Location / / Volume Laterality 12/10/2002 9:31 AM CDT Pauline Jimenez MALCOM-C LAB_1 Performing Organization Address [facility] Phon e Number HP CONVERSION Hemoglobin, Blood (12/10/2002 9:31 AM CDT) athologist Signature Hemoglobin 13.3 11.8 - 15.5 HP CONVERSION gm/dL Specimen (Source) Anatomical Collection Method Collection Time Re ceived Time Location / / Volume Laterality 12/10/2002 9:31 AM CDT Pauline Jimenez MALCOMMeganC LAB_1 Performing Organization Address [facility] Phon e Number HP CONVERSION documented in this encounter Visit Diagnoses Not on filedocumented in this encounter Care Teams Sculpture Instructor Relationship Specialty Start Date End Date Pauline Jimenez PA-C PCP - General 06/17/10 12/12/14 [address] [place] [address] documented as of this encounter
--- OUTSIDE RECORDS SUMMARY | 2022-02-26 10:55 | XMS_ITS | Encounter Summary ---
:1960 Author Organization [facility] Address [address] [place] [address] Care Team Providers Name Role Phone Pauline Jimenez PA-C Primary Care Provider Encounter Details Date Type Department Care Team Description 07/06/1999 PN Conversion Only CONGREGATION CONVERSION Arturo Hurst MD [address] [place], [place] [address] (Wo rk) Social History Tobacco Use Types Packs/Day Years Used Date Smoking Tobacco: Never Assessed Sex Assigned at Date Recorded Not on file documented as of this encounter Plan of Treatment Not on filedocumented as of this encounter Visit Diagnoses Not on filedocumented in this encounter Care Teams Parking Lot Laborer Relationship Specialty Start Date End Date Pauline Jimenez PA-C PCP - General 06/17/10 12/12/[address] [place] [address] documented as of this encounter
--- OUTSIDE RECORDS SUMMARY | 2022-02-26 10:55 | XMS_ITS | Encounter Summary ---
:1960 Author Organization [facility] Address [address], [place] [address] Care Team Providers Name Role Phone Pauline Jimenez PA-C Primary Care Provider Encounter Details Date Type Department Care Team Description 03/09/2003 PN Conversion Only ISLAM CONVERSION Ashley Jimenez PA-C [address] [place] [address] (Wo rk) Social History Tobacco Use Types Packs/Day Years Used Date Smoking Tobacco: Never Assessed Sex Assigned at Date Recorded Not on file documented as of this encounter Plan of Treatment Not on filedocumented as of this encounter Procedures Procedure Name Priority Date/Time Associated Diagnosis Comme nts INR/PROTIME Routine 03/09/2003 10:24 AM Results for this LOUVER DOOR ASSEMBLER procedure are i n the results section . documented in this encounter Results (ABNORMAL) INR/Protime (03/09/2003 10:24 AM LOUVER DOOR ASSEMBLER) [facility] Method Time Signature Prothrombin 25.0 (H) 8.9 - 11.1 HP CONVERSION Time [...] valves in the aortic position , acute MD, valvular heart disease and atrial fibril lation. Mechanical prosthetic valves, (high risk ). ? INR 2.5-3.5 Prevention of recurrent myocardial infar ct. These recommended ranges serve as guidel jorge. Adjustment outside these ranges may be clinically indicated. Specimen (Source) Anatomical Collection Method Collection Time Re ceived Time Location / / Volume Laterality 03/09/2003 10:24 AM LOUVER DOOR ASSEMBLER Pauline Jimenez PA-C LAB_1 Performing Organization Address City/State/ZIP Code Phon e Number HP CONVERSION documented in this encounter Visit Diagnoses Not on filedocumented in this encounter Care Teams Cake Icer And Packer Relationship Specialty Start Date End Date Pauline Jimenez PA-C PCP - General 06/17/10 12/12/[address] [place] [address] documented as of this encounter
--- OUTSIDE RECORDS SUMMARY | 2022-02-26 10:55 | XMS_ITS | Encounter Summary ---
:1960 Author Organization [facility] Address [address] [address] Care Team Providers Name Role Phone Pauline Jimenez PA-C Primary Care Provider Encounter Details Date Type Department Care Team Description 05/06/2003 PN Conversion Only SABIANISM CONVERSION Ashley Jimenez PA-C [address] [place], [place] [address] (Wo rk) Social History Tobacco Use Types Packs/Day Years Used Date Smoking Tobacco: Never Assessed Sex Assigned at Date Recorded Not on file documented as of this encounter Plan of Treatment Not on filedocumented as of this encounter Procedures Procedure Name Priority Date/Time Associated Diagnosis Comme nts INR/PROTIME Routine 05/06/2003 4:14 PM Results f or this NANOELECTRONICS ENGINEER procedure are i n the results section . documented in this encounter Results (ABNORMAL) INR/Protime (05/06/2003 4:14 PM NANOELECTRONICS ENGINEER) [facility] Method Time Signature Prothrombin 23.9 (H) 8.9 - 11.1 HP CONVERSION Time [...] ceived Time Location / / Volume Laterality 05/06/2003 4:14 PM NANOELECTRONICS ENGINEER Pauline Jimenez PA-C LAB_1 Performing Organization Address City/State/ZIP Code Phon e Number HP CONVERSION documented in this encounter Visit Diagnoses Not on filedocumented in this encounter Care Teams Beet Flumer Relationship Specialty Start Date End Date Pauline Jimenez PA-C PCP - General 06/17/10 12/12/[address] [place] [address] documented as of this encounter
--- OUTSIDE RECORDS SUMMARY | 2022-02-26 10:55 | XMS_ITS | Encounter Summary ---
:1960 Author Organization [facility] Address [address], [place] [address] Care Team Providers Name Role Phone Pauline Jimenez PA-C Primary Care Provider Encounter Details Date Type Department Care Team Description 02/03/2003 PN Conversion Only [place] [address] [facility] [facility] [place] [address] (Wo rk) Social History Tobacco Use Types Packs/Day Years Used Date Smoking Tobacco: Never Assessed Sex Assigned at Date Recorded Not on file documented as of this encounter Plan of Treatment Not on filedocumented as of this encounter Visit Diagnoses Not on filedocumented in this encounter Care Teams Rat Culturist Relationship Specialty Start Date End Date Pauline Jimenez PA-C PCP - General 06/17/10 12/12/[address] [place] [address] documented as of this encounter
--- OUTSIDE RECORDS SUMMARY | 2022-02-26 10:55 | XMS_ITS | Encounter Summary ---
:1960 Author Organization [facility] Address [address] [place] [address] Care Team Providers Name Role Phone Pauline Jimenez PA-C Primary Care Provider Encounter Details Date Type Department Care Team Description 01/19/2003 Home Care Visit LUTHERAN CONVERSION Wyatt Jimenez PA-C [address] [place] [address] (Wo rk) Social History Tobacco Use Types Packs/Day Years Used Date Smoking Tobacco: Never Assessed Sex Assigned at Date Recorded Not on file documented as of this encounter Plan of Treatment Not on filedocumented as of this encounter Visit Diagnoses Not on filedocumented in this encounter Care Teams Incident Response Consultant Relationship Specialty Start Date End Date Pauline Jimenez PA-C PCP - General 06/17/10 12/12/[address] [place] [address] documented as of this encounter
--- OUTSIDE RECORDS SUMMARY | 2022-02-26 10:55 | XMS_ITS | Encounter Summary ---
:1960 Author Organization [facility] Address [address], [place] [address] Care Team Providers Name Role Phone Barbara Pauline Malone PA-C Primary Care Provider Encounter Details Date Type Department Care Team Description 06/04/2002 PN Conversion Only DRUZE CONVERSION Domonique Todd MD [address] [place] [address] (Wo rk) Social History Tobacco Use Types Packs/Day Years Used Date Smoking Tobacco: Never Assessed Sex Assigned at Date Recorded Not on file documented as of this encounter Plan of Treatment Not on filedocumented as of this encounter Procedures Procedure Name Priority Date/Time Associated Comments Diagnosis GLUCOSE Routine 06/04/2002 9:47 AM Results f or this FRAMEMAN procedure are i n the results section. THYROID STIMULATING Routine 06/04/2002 9:47 AM Re sults for this HORMONE FRAMEMAN procedure are i n the results section. CREATININE / GFR Routine 06/04/2002 9:47 AM Resul ts for this FRAMEMAN procedure are i n the results section. COMPLETE BLOOD Routine 06/04/2002 9:47 AM Results for this COUNT-W/DIFF FRAMEMAN procedure are i n the results section. POTASSIUM Routine 06/04/2002 9:47 AM Results f or this FRAMEMAN procedure are i n the results section. BUN Routine 06/04/2002 9:47 AM Results f or this FRAMEMAN procedure are i n the results section. documented in this encounter Results (ABNORMAL) Complete Blood Count-W/Diff (06/04/2002 9:47 AM FRAMEMAN) Patholo gist Method Time Signature White Blood Cell 8.2 3.8 - HP CONVERSION Count 11.0 K/cmm Red Blood Cell 4.89 3.70 - HP CONVERSION Count 5.20 m/cmm Hemoglobin 10.4 (L) 11.8 - HP CONVERSION 15.5 gm/dL Hematocrit 33.6 (L) 35.0 - HP CONVERSION 46.0 % Mean Corpuscular 68.6 (L) 80.0 - HP CONVERSION Volume 100.0 fl Comment: Results suggest iron deficiency , ferritin level may be helpful. Mean Corpuscular Hemoglobin 21.2 (L) 27.0 - 34.0 pg HP CONVERSION Mean Corpuscular Hemoglobin Conc St. 30.9 (L) 32.0 - 36.5 gm/dL HP CONVERSION Jacob RDW 18.5 (H) 11.0 - 15.0 % HP CONVERSION Platelet Count 342 140 - 450 k/cmm HP CONVER MARIANA Differential Verify Auto-Dif No normal range HP C ONVERSION Neutrophils Absolute Count 4.3 2.0 - 7.5 K/cmm HP CONVERSION Neutrophil 52.9 50.0 - 75.0 % HP CONVERSION Lymphocyte % 38.3 20.0 - 40.0 % HP CONVERSION Monocyte 6.9 5.0 - 14.0 % HP CONVERSION Eosinophil 1.7 0.0 - 6.0 % HP CONVERSION Basophil % 0.2 0.0 - 2.0 % HP CONVERSION Specimen (Source) Anatomical Collection Method Collection Time Re ceived Time Location / / Volume Laterality 06/04/2002 9:47 AM FRAMEMAN Pauline Crameraminata العراقي-C LAB_1 Performing Organization Address City/State/ZIP Code Phon e Number HP CONVERSION Thyroid Stimulating Hormone (06/04/2002 9:47 AM FRAMEMAN) athologist Signature Thyroid 2.55 0.20 - HP CONVERSION Stimulating 5.50 Hormone uIU/mL Specimen (Source) Anatomical Collection Method Collection Time Re ceived Time Location / / Volume Laterality 06/04/2002 9:47 AM FRAMEMAN Pauline Crameraminata العراقي-C LAB_1 Performing Organization Address City/State/ZIP Code Phon e Number HP CONVERSION BUN (06/04/2002 9:47 AM FRAMEMAN) athologist Signature Blood Urea 11 5 - 26 HP CONVERSION Nitrogen mg/dL Specimen (Source) Anatomical Collection Method Collection Time Re ceived Time Location / / Volume Laterality 06/04/2002 9:47 AM FRAMEMAN Pauline ANDREC LAB_1 Performing Organization Address City/[facility] Code Phon e Number HP CONVERSION Creatinine / GFR (06/04/2002 9:47 AM FRAMEMAN) athologist Signature Creatinine 0.7 0.5 - 1.5 HP CONVERSION Serum mg/dL Specimen (Source) Anatomical Collection Method Collection Time Re ceived Time Location / / Volume Laterality 06/04/2002 9:47 AM FRAMEMAN Pauline العراقي-C LAB_1 Performing Organization Address City/[facility] Code Phon e Number HP CONVERSION Glucose (06/04/2002 9:47 AM FRAMEMAN) athologist Signature Lab Glucose 83 60 - 109 HP CONVERSION mg/dL Specimen (Source) Anatomical Collection Method Collection Time Re ceived Time Location / / Volume Laterality 06/04/2002 9:47 AM FRAMEMAN Pauline ANDREC LAB_1 Performing Organization Address City/[facility]/ZIP Code Phon e Number HP CONVERSION Potassium (06/04/2002 9:47 AM FRAMEMAN) athologist Signature Potassium 4.0 3.5 - 5.2 HP CONVERSION meq/L Specimen (Source) Anatomical Collection Method Collection Time Re ceived Time Location / / Volume Laterality 06/04/2002 9:47 AM FRAMEMAN Pauline Crameraminata العراقيMeganC LAB_1 Performing Organization Address City/[facility] Phon e Number HP CONVERSION documented in this encounter Visit Diagnoses Not on filedocumented in this encounter Care Teams Enterprise Application Developer Relationship Specialty Start Date End Date [place] Pauline Malone PA-C PCP - General 06/17/10 12/12/14 [address] [place] [address] documented as of this encounter
--- OUTSIDE RECORDS SUMMARY | 2022-02-26 10:55 | XMS_ITS | Encounter Summary ---
:1960 Author Organization [facility] Address [address], [place] [address] Care Team Providers Name Role Phone Pauline Jimenez PA-C Primary Care Provider Encounter Details Date Type Department Care Team Description 12/01/2000 PN Conversion Only MUSLIM CONVERSION Domonique Todd MD [address] [place] [address] (Wo rk) Social History Tobacco Use Types Packs/Day Years Used Date Smoking Tobacco: Never Assessed Sex Assigned at Date Recorded Not on file documented as of this encounter Plan of Treatment Not on filedocumented as of this encounter Visit Diagnoses Not on filedocumented in this encounter Care Teams Grain Mill Worker Relationship Specialty Start Date End Date Pauline Jimenez PA-C PCP - General 06/17/10 12/12/[address] [place] [address] documented as of this encounter
--- OUTSIDE RECORDS SUMMARY | 2022-02-26 10:55 | XMS_ITS | Encounter Summary ---
:1960 Author Organization [facility] Address [address] [place] [address] Care Team Providers Name Role Phone Needs Pcp, Assignment Primary Care Provider Encounter Details Date Type Department Care Team Description 01/11/2003 Notes/Orders CONVERSION CONVERSION Conversion , User GTS [place] [address] Social History Tobacco Use Types Packs/Day Years Used Date Smoking Tobacco: Never Assessed Sex Assigned at Date Recorded Not on file documented as of this encounter Plan of Treatment Not on filedocumented as of this encounter Procedures Procedure Name Priority Date/Time Associated Diagnosis Comme nts HYSTERECTOMY ABDOMINAL Routine 01/11/2003 6:27 PM RUBBER COMPOUNDER FORMULATOR documented in this encounter Results HYSTERECTOMY ABDOMINAL (01/11/2003 6:27 PM RUBBER COMPOUNDER FORMULATOR) Specimen (Source) Anatomical Location Collection Method / Collectio n Time Received Time / Laterality Volume User Conversion PN GENERAL SURGICAL ORDERABL ES Performing Organization Address City/State/ZIP Code Phon e Number HP CONVERSION documented in this encounter Visit Diagnoses Not on filedocumented in this encounter Care Teams Inspector Grain Mill Products Relationship Specialty Start Date End Date Needs Pcp, Assignment PCP - General 12/13/14 [place] [address] documented as of this encounter
--- OUTSIDE RECORDS SUMMARY | 2022-02-26 10:55 | XMS_ITS | Encounter Summary ---
:1960 Author Organization [facility] Address [address] [place] [address] Care Team Providers Name Role Phone Pauline Jimenez PA-C Primary Care Provider Encounter Details Date Type Department Care Team Description 02/03/2003 PN Conversion [place] [address] [facility] [place] [address] (Wo rk) Social History Tobacco Use Types Packs/Day Years Used Date Smoking Tobacco: Never Assessed Sex Assigned at Date Recorded Not on file documented as of this encounter Plan of Treatment Not on filedocumented as of this encounter Procedures Procedure Name Priority Date/Time Associated Diagnosis Comme nts HEMOGLOBIN, BLOOD Routine 02/03/2003 10:10 AM Res ults for this STABLE HAND procedure are i n the results section. documented in this encounter Results (ABNORMAL) Hemoglobin, Blood (02/03/2003 10:10 AM STABLE HAND) athologist Signature Hemoglobin 9.2 (L) 11.8 - 15.5 HP CONVERSION gm/dL Specimen (Source) Anatomical Collection Method Collection Time Re ceived Time Location / / Volume Laterality 02/03/2003 10:10 AM STABLE HAND Daniel Henley MD LAB_1 Performing Organization Address City/State/ZIP Code Phon e Number HP CONVERSION documented in this encounter Visit Diagnoses Not on filedocumented in this encounter Care Teams Security Associate Relationship Specialty Start Date End Date Pauline Jimenez PA-C PCP - General 06/17/10 12/12/14 [address] [place] [address] documented as of this encounter
--- OUTSIDE RECORDS SUMMARY | 2022-02-26 10:55 | XMS_ITS | Encounter Summary ---
:1960 Author Organization [facility] Address [address] [place] [address] Care Team Providers Name Role Phone Pauline Jimenez PA-C Primary Care Provider Encounter Details Date Type Department Care Team Description 06/15/1998 PN Conversion Only JEWISH CONVERSION Arturo Hurst MD [address] [place], [place] [address] (Wo rk) Social History Tobacco Use Types Packs/Day Years Used Date Smoking Tobacco: Never Assessed Sex Assigned at Date Recorded Not on file documented as of this encounter Plan of Treatment Not on filedocumented as of this encounter Visit Diagnoses Not on filedocumented in this encounter Care Teams Ball Fringe Machine Operator Relationship Specialty Start Date End Date Pauline Jimenez PA-C PCP - General 06/17/10 12/12/[address] [place] [address] documented as of this encounter
--- OUTSIDE RECORDS SUMMARY | 2022-02-26 10:55 | XMS_ITS | Encounter Summary ---
:1960 Author Organization [employer] Address [address] [place] [id number] Care Team Providers Name Role Phone Unavailable Primary Care Provider Unavailable Encounter Details Date Type Department Care Team Description 01/10/2003 - Hospital [place] [address] [facility] [place] [id number] 01/18/2003 [id number][place] [address] [facility] [place] [address] [facility] [address] [place], [place] [address] Social History Tobacco Use Types Packs/Day Years Used Date Smoking Tobacco: Never Assessed Sex Assigned at Date Recorded Not on file documented as of this encounter Discharge Summaries Castillo Ch MD - 01/18/2003 12:01 AM CST NAME: WOO RAYA MR: [id number] ACCT: [id number] AUTHENTICATING CLINICIAN: CASTILLO CH MD JOB: [id number] HOSPITAL DISCHARGE SUMMARY DATE OF ADMISSION: 01/10/03. Date of original hospital consult 01/16/03. DATE OF DISCHARGE: 01/18/03. ADMITTING DIAGNOSIS: Pulmonary embolism, status post total abdominal hysterectomy, BSO and abdominoplasty. DISCHARGE DIAGNOSIS: Pulmonary embolism, status post total abdominal hysterectomy, BSO and abdominoplasty. HISTORY: This dictation refers only to the medical problems consulted to the hospital service for information regarding her surgical course. Please see the dictations by Dr. Sepulveda and by plastic surgery. HOSPITAL COURSE: On 01/16/03 was called to the patient. The patient had been hypoxic since her surgery originally on 01/11/03, actually had been seen by critical care. Was though she was just postop hypoxia and atelectasis. The patient's oxygenation, however, failed to improve on the morning of 01/16/03, the patient had significant pain and worsening shortness of breath with sats of 85% on room air which is actually what they had been since surgery. A VQ scan was done which was indeterminate due to her infiltrates. Hospital service then ordered a CT pulmonary angiogram which showed multiple pulmonary embolisms on the right side. The patient was started on Lovenox and by the following morning, oxygenation was significantly improved and the pain was gone. The patient did well on Lovenox on 01/18/03, was now on room air with sats of 98%. The patient was ambulating without difficulty and felt well. PLAN: At this time, is to discharge her home with Lovenox until her INR is greater than two times two days and then continue anticoagulation for six months. Anticoagulation clinic was consulted and will follow. The patient responded well to teaching and with this plan is to be discharged home at 4:30 this afternoon with her sister Zain. The patient is hearing impaired. AST interpreters will be available for both the ACC education piece and for discharge. They will call if questions. DISCHARGE MEDICATIONS: Zoloft 100 mg p.o. q.d., Maxzide 75/50 one p.o. q.d., Lovenox 60 mg subcue q.12h. and Coumadin 2.5 mg a day, the patient will need daily INRs at least to start with the ACC, anticoagulation will be followed by the anticoagulation clinic. DIAGNOSIS: Total abdominal hysterectomy and bilateral salpingo-oophorectomy with abdominoplasty postoperative pulmonary embolism. CONDITION ON DISCHARGE/INSTRUCTIONS: ENOCH:[id number] C: 01/19/03 06:33 DOCUMENT: [id number] ING MACHINE COIN COLLECTOR documented in this encounter Procedure Notes Courtney Sepulveda MD - 01/11/2003 12:01 AM CST OR Surgeon signed by Courtney Sepulveda MD at 02/02/03 1244 Author: Courtney Sepulveda MD Service: (none) Author Type: Physician Filed: 07/05/10 1146 Note Time: 01/10/03 1710 Status: Signed Tumbling Machine Operator: Courtney Sepulveda MD (Physician) NAME: WOO RAYA MR: [id number] ACCT: [id number] AUTHENTICATING CLINICIAN: COURTNEY SEPULVEDA MD JOB: [id number] OPERATIVE REPORT DATE OF OPERATION: 01/11/2003 INDICATIONS FOR PROCEDURE: PREOPERATIVE DIAGNOSIS: Abdominal laxity and uterine fibroids. POSTOPERATIVE DIAGNOSIS: Abdominal laxity and uterine fibroids. PROCEDURE PERFORMED: Abdominoplasty (Dr. Gonzalez Acuna), abdominal hysterectomy (Dr. Courtney Sepulveda). SURGEON: Courtney eSpulveda MD FINDINGS: DESCRIPTION OF OPERATION: The patient was prepped and draped in a routine sterile fashion abdominally and vaginally under general anesthesia. Dr. Gonzalez Dominguez started the procedure and opened an elliptical transversely-oriented abdominoplasty flap. I then began my portion of the surgery, which consisted of a midline fascial incision, which entered the peritoneal cavity without difficulty. Identified was a tightly impacted uterus, which was quite small and held firmly to the left side by a 7 to 8 cm right broad ligament fibroid. The uterus was taken fundally with a single-tooth tenaculum and placed in traction. The left round ligament was taken with a Antionette clamp, divided, and suture ligated with #0 chromic suture material. A bladder flap was developed by transversely incising the peritoneal overlying the lower uterine segment and bluntly dissecting the bladder downward. The round ligament overlying the right broad ligament fibroid was taken with a Antionette clamp, divided, and suture ligated with #0 chromic suture material. The peritoneal incision was carried down to meet the bladder flap, which had been previously made. The posterior leaf of the left broad ligament was punctured with the concrete pipe machine operator's index finger and the uteroovarian pedicle was crossclamped with a Judy clamp, divided, and doubly suture ligated with #0 chromic suture material. Gentle blunt dissection served to free the broad ligament fibroid from its attachments, however, copious bleeding resulted. Because of the impaction, the bleeding could not be immediately addressed and the hysterectomy was carried out as follows: The uterine artery on the left was taken with a Judy clamp, divided, and suture ligated with #0 chromic suture material. The same was carried out on the right as best possible. Again, the fibroid was on that side and the Judy clamp had to be brought apart under the fibroid against the cervix. The bladder was, at this time, well away from the ligature which was made. The uterus was then amputated across the cervical stump and sent to pathology. There were several vigorously bleeding arterial bleeders on the right, which were for the most part individually taken and suture ligated. A Judy clamp had to be placed across the entire pedicle, which was actually less than a centimeter at that time, and a second suture ligature placed to finally achieve hemostasis. There was considerable bleeding down on the right under the adnexal pedicle. The patient had expressed the desire not to lose either of her ovaries, and therefore attempts were made to save this ovary. Several ligatures were required along the pelvic sidewall, which were bleeders which were first taken with hemostat, and one heme clip was applied to a vigorously bleeding arterial bleeder. Hemostasis appeared pretty good at this time. The bladder flap was advanced a bit further with gentle blunt dissection and a Antionette clamp was used on each side to take the cardinal ligaments down. This entered the vagina on the right and the cervix was removed by cutting around the fornices with heavy Shaw scissors. Standard retention style stitches of #0 chromic suture material were used to control the cuff angles and the cuff was closed with [id number] type of stitches of #0 chromic suture material. There was significant bleeding from many of the raw surfaces, in particular what appeared to be the bladder pillars. Very cautious superficial cautery was used to achieve hemostasis and a block Avitene was placed under the bladder flap and sewn in place with a 2-0 chromic suture material in simple running type of stitch. After some pressure was applied a period of prolonged observation failed to reveal any further bleeding. The abdomen was cleaned of clots and sponges and the peritoneum was run shut with #0 chromic suture material in a simple running type of stitch. At this point, the EBL was approximately 1900 cc and the patient had already received two units of packed red blood cells and a third was being ordered. Dr. Acuna was summoned back to the room and she began her repair, which included closing the fascia and doing the repair of the abdominoplasty. Final blood loss and the details of Dr. Acuna's portion of the procedure will be included in her note. EWL:[id number] C: 01/11/03 08:45 DOCUMENT: [id number] ING MACHINE COIN COLLECTOR Gonzalez Acuna MD - 01/10/2003 12:01 AM CST OR Surgeon signed by Gonzalez Acuna MD at 03/29/03 5688 Author: Gonzalez Acuna MD Service: (none) Author Type: Physician Filed: 07/05/10 1648 Note Time: 03/15/03 1616 Status: Signed Tumbling Machine Operator: Gonzalez Acuna MD (Physician) NAME: WOO RAYA MR: [id number] ACCT: [id number] AUTHENTICATING CLINICIAN: GONZALEZ ACUNA MD JOB: [id number] OPERATIVE REPORT DATE OF OPERATION: 01/10/2003 INDICATIONS FOR PROCEDURE: The patient is a pleasant, woman who has soft tissue redundancy secondary to . She requests that this be improved for cosmetic reasons in conjunction with a hysterectomy to be performed by Dr. Sepulveda. Risks and complications of the surgery have been explained and reviewed with the patient and her sister with the assistance of an automatic head sawyer as the patient is hearing impaired. She understands and accepts. PREOPERATIVE DIAGNOSIS: Abdominal dermachalasis and lipodystrophy. POSTOPERATIVE DIAGNOSIS: Abdominal dermachalasis and lipodystrophy. PROCEDURE PERFORMED: Abdominoplasty. SURGEON: Gonzalez Acuna MD PARACHUTE REPAIRER: SYLVIA Khan ANESTHESIA: General. FINDINGS: DESCRIPTION OF OPERATION: Markings were made in the upright position and then modified in the supine position to provide for adequate excision of the redundant skin and soft tissue. The patient was then prepped and draped in the standard manner. The inferior aspect of the excision was incised and the umbilical was circumscribed. The skin was elevated up to the costal margin and xiphoid, the amount of redundancy was confirmed and resected and hemostasis was secured with cautery. A hysterectomy was then performed by Dr. Sepulveda and is covered in a separate dictation. On completion of the hysterectomy and closure of the abdomen, additional plication of the rectus fascia and rectus diastasis was completed with 2-0 Nurolon. Abner drains were placed and after irrigation and a final check for hemostasis, the bed was placed in a slightly flexed position. After remeasuring the umbilical position, the umbilical window was made and the skin was closed with 0 and 4-0 PDS and 5-0 Vicryl. Drains were placed to suction prior to completion of closure. She tolerated the procedure well and was taken to the postoperative area in good condition. MC:[id number] C: 03/15/03 17:35 DOCUMENT: [id number] ING MACHINE COIN COLLECTOR documented in this encounter Consult Notes Arthur Israel MD - 01/11/2003 12:01 AM CST Consults signed by Arthur Israel MD at 01/28/03 1355 Author: Arthur Israel MD Service: (none) Author Type: Physician Filed: 07/05/10 1649 Note Time: 01/11/03 1545 Status: Signed Tumbling Machine Operator: Arthur Israel MD (Physician) NAME: WOO RAYA MR: [id number] ACCT: [id number] AUTHENTICATING CLINICIAN: ARTHUR ISRAEL MD JOB: [id number] HOSPITAL CONSULTATION DATE OF CONSULTATION: 01/11/2003 ORDERING PHYSICIAN: COURTNEY SEPULVEDA MD : 1960 REASON FOR CONSULTATION/HPI: Dr. Sepulveda requests a critical care consultation to assist with postoperative anemia, hypotension and mild respiratory failure. Ms. Raya is hearing impaired and provides little history. She is currently receiving narcotic sedation. She underwent a scheduled total abdominal hysterectomy and abdominoplasty for uterine fibroids causing irregular menstrual bleeding and pain. She also has abdominal lipodystrophy. Because this, she underwent this procedure on 01/10/03. Intraoperative blood loss was estimated at 1900 cc. She was hypotensive postoperatively and was placed on dopamine and received small amounts of fluids. She also had difficulty with decreased mental status and apnea which responded to Narcan. Currently, she is more alert. Postoperative hemoglobin was 6.4, compared to 13. She received three units of packed red cells. She has no evidence of ongoing bleeding from her J-P drain to her abdominal dressings. Patient is somewhat mentally impaired as well as hearing impaired, and her sister provides information. Apparently she does not have significant pain at the present time but does feel moderately dizzy and mildly nauseated. She denies shortness of breath, no cough or sputum production. No other new complaints. PAST MEDICAL HISTORY: 1. Hypertension. 2. Depression. 3. Hearing loss. 4. Low IQ. 5. Fibroids and abdominal lipodystrophy. 6. Tubal ligation. MEDICATIONS: Zoloft, Maxzide, atenolol, multivitamins. She received 3 U of packed red blood cells; is on a morphine APPLE TURNER at 0.5 mg per hour; has had intermittent Toradol and Narcan. ALLERGIES: NO KNOWN DRUG ALLERGIES. SOCIAL HISTORY: The patient is single. She had two children. She lives with her parents. She does not smoke or drink alcohol. 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 FAMILY HISTORY: Significant for diabetes, hypertension and coronary artery disease. REVIEW OF SYSTEMS: Otherwise unable. PHYSICAL EXAMINATION: VITAL SIGNS: BP: 86/43. T: 37.8, TMax. P: 69, on dopamine at 5 mcg. She has received 1 L of fluid and 3 U of packed red cells. Oxygen saturation: 97% on 5 L by nasal cannula. Urine output: 190 cc from midnight to 8 a.m. IN GENERAL: She is a pleasant, no apparent respiratory distress, young woman. HEAD: Normocephalic, atraumatic. She is sleepy but arouseable. Does interact with her sister. EYES: Sclerae are anicteric. Conjunctivae are pink. EXTERNAL NOSE: Normal. NECK: Supple without cervical or supraclavicular lymphadenopathy. Trachea is in the midline. No wheezing over her trachea. No carotid bruits. LUNGS: Breath sounds are equal. There are posterior fine rales. She is not labored or using accessory muscles. HEART: Regular rate and rhythm without murmur, gallop or rub. There does appear to be an increased P2 or split S2. Radial pulses are 2+ and symmetric. She also has full distal dorsalis pedis pulses. ABDOMEN: Soft. I do not appreciate any bowel sounds. She is tender, particularly in the left lower quadrant. She has an intact dressing over her entire abdomen. EXTREMITIES: Without clubbing or cyanosis or edema. SKIN: Warm. She feels febrile. However, current temperature is afebrile. She is not diaphoretic. NEURO: She does move extremities spontaneously but does follow commands. Has normal pupillary responses. LABORATORY: Hemoglobin preoperatively 13, postop 6.4, after three units 13, current 11.3. Chest x-ray shows small lung volumes. There is bilateral perihilar patchy infiltrates. There is a large transverse colon in the left upper quadrant. Alternatively, it could be gastric air. IMPRESSION: 1. Shock/hypotension. She does have some urine output but requires pressor support. She appears to be mentating well on her seeming distal perfusion. At this pint, I would like to continue on with normal saline. Given that her hemoglobin has been transfused back to baseline, would watch for ongoing source of blood loss and would transfuse again to maintain her hemoglobin. However, at this time, we cannot yet wean her dopamine. Will continue fluid until urine output picks up. Will watch her respiratory status closely. 2. Pulmonary. She does have mild respiratory insufficiency requiring 5 L of oxygen and bilateral perihilar infiltrates which could be consistent with pulmonary edema. Although she may be volume overloaded, I do thing that this is possibly a narcotic-induces pulmonary edema or postextubation pulmonary edema. At this time, will place her on BiPAP. Will check an EKG and BNP. Though she has no primary cardiac history, this will allow us, however, to give her further fluids to assist with blood pressure support. 3. Gastrointestinal. She does appear to have significant air in her bowels postoperatively. Will place an NG tube given the patient's nausea to improve comfort. 4. Central nervous system. Would continue to give pain control, however, minimize necessary. We will add Protonix given her ICU stay and remaining on dopamine. Thank you very much. RECOMMENDATIONS: See impression. LAW:[id number] C: 01/11/03 22:37 DOCUMENT: [id number] ING MACHINE COIN COLLECTOR documented in this encounter Miscellaneous Notes Miscellaneous - Courtney Sepulveda MD - 01/18/2003 12:01 AM CST ICD-9-CM ICD-9-CM Narrative description Code ======== DIAGNOSES Principal: UTERINE LEIOMYOMA NOS 218.9 Secondary: IATROGENIC PULMONARY EMBOLISM AND INFARCTION 415.11 POSTOPERATIVE SHOCK 998.0 AC POSTHEMORRHAG ANEMIA 285.1 SKIN HYPERTRO/ATROPH NEC 701.8 LOCALIZED ADIPOSITY 278.1 HYPERTENSION NOS 401.9 DEPRESSIVE DISORDER NEC 311 OTHER IATROGENIC HYPOTENSION 458.29 HEARING LOSS NOS 389.9 PROCEDURES Provider1 Date Principal: TOTAL ABD HYSTERECTOMY COURTNEY SEPULVEDA [id number] 68.4 Provider2: Provider3: MONY SERRA Secondary: SIZE REDUCT PLASTIC OP GONZALEZ ACUNA [id number] 86.83 Provider2: Provider3: CONTR PULMON ARTERIOGRAM CAIN CABAN [id number] 88.43 Provider2: Provider3: ING MACHINE COIN COLLECTOR documented in this encounter Plan of Treatment Not on filedocumented as of this encounter Procedures Procedure Name Priority Date/Time Associated Comments Diagnosis LIVER PANEL(HEPATIC Routine 01/18/2003 6:35 PM Re sults for this FUNCTION PANEL) VENDING MACHINE COIN COLLECTOR procedure ar e in the results section. INR/PROTIME Routine 01/18/2003 7:00 AM Results f or this VENDING MACHINE COIN COLLECTOR procedure are i n the results section. CT ANGIO CHEST W/WO IV Routine 01/16/2003 6:01 PM Results for this CONT VENDING MACHINE COIN COLLECTOR procedure are i n the results section. XR CHEST 2 VIEWS Routine 01/16/2003 11:28 Results for this AM VENDING MACHINE COIN COLLECTOR procedure are i n the results section. NM LUNG STAT 01/16/2003 11:08 Results for this VENTILATION/PERFUSION AM VENDING MACHINE COIN COLLECTOR proced ure are in (VQ) the results section. MAGNESIUM Routine 01/13/2003 6:05 AM Results f or this VENDING MACHINE COIN COLLECTOR procedure are i n the results section. PHOSPHORUS Routine 01/13/2003 6:05 AM Results f or this VENDING MACHINE COIN COLLECTOR procedure are i n the results section. POTASSIUM Routine 01/13/2003 6:00 AM Results f or this VENDING MACHINE COIN COLLECTOR procedure are i n the results section. POTASSIUM Routine 01/12/2003 9:15 PM Results f or this VENDING MACHINE COIN COLLECTOR procedure are i n the results section. HEMOGLOBIN, BLOOD Routine 01/12/2003 6:46 PM Resu lts for this VENDING MACHINE COIN COLLECTOR procedure are i n the results section. SODIUM Routine 01/12/2003 6:46 PM Results f or this VENDING MACHINE COIN COLLECTOR procedure are i n the results section. HEMOGLOBIN, BLOOD Routine 01/12/2003 12:50 Result s for this PM VENDING MACHINE COIN COLLECTOR procedure are i n the results section. POTASSIUM Routine 01/12/2003 12:50 Results for this PM VENDING MACHINE COIN COLLECTOR procedure are i n the results section. ECHOCARDIOGRAM Routine 01/12/2003 11:30 Results f or this AM VENDING MACHINE COIN COLLECTOR procedure are i n the results section. XR PORTABLE CHEST 1 Routine 01/12/2003 6:57 AM Re sults for this VIEW VENDING MACHINE COIN COLLECTOR procedure are i n the results section. COMPLETE BLOOD COUNT-NO Routine 01/12/2003 5:05 AM Results for this DIFF VENDING MACHINE COIN COLLECTOR procedure are i n the results section. BASIC METABOLIC PANEL Routine 01/12/2003 5:00 AM Results for this VENDING MACHINE COIN COLLECTOR procedure are i n the results section. MAGNESIUM Routine 01/12/2003 5:00 AM Results f or this VENDING MACHINE COIN COLLECTOR procedure are i n the results section. PHOSPHORUS Routine 01/12/2003 5:00 AM Results f or this VENDING MACHINE COIN COLLECTOR procedure are i n the results section. BRAIN NATRIURETIC Routine 01/11/2003 2:29 PM Resu lts for this PEPTIDE (BNP) VENDING MACHINE COIN COLLECTOR procedure are in the results section. HEMOGLOBIN, BLOOD Routine 01/11/2003 2:29 PM Resu lts for this VENDING MACHINE COIN COLLECTOR procedure are i n the results section. ECG 12 LEAD INPATIENT Routine 01/11/2003 2:01 PM Results for this VENDING MACHINE COIN COLLECTOR procedure are i n the results section. XR PORTABLE CHEST 1 Routine 01/11/2003 11:08 Resu lts for this VIEW AM VENDING MACHINE COIN COLLECTOR procedure are i n the results section. HEMOGLOBIN, BLOOD Routine 01/11/2003 8:50 AM Resu lts for this VENDING MACHINE COIN COLLECTOR procedure are i n the results section. PLATELETS Routine 01/10/2003 8:17 PM Results f or this VENDING MACHINE COIN COLLECTOR procedure are i n the results section. ELECTROLYTES (NA, K, Routine 01/10/2003 6:10 PM R esults for this CL, BICARB) VENDING MACHINE COIN COLLECTOR procedure are i n the results section. COMPLETE BLOOD COUNT-NO Routine 01/10/2003 6:10 PM Results for this DIFF VENDING MACHINE COIN COLLECTOR procedure are i n the results section. APTT (ACTIVATED PARTIAL Routine 01/10/2003 4:20 PM Results for this THROMBOPLASTIN TIME VENDING MACHINE COIN COLLECTOR procedur e are in the results section. PLATELETS Routine 01/10/2003 4:20 PM Results f or this VENDING MACHINE COIN COLLECTOR procedure are i n the results section. HEMOGLOBIN, BLOOD Routine 01/10/2003 4:20 PM Resu lts for this VENDING MACHINE COIN COLLECTOR procedure are i n the results section. INR/PROTIME Routine 01/10/2003 4:20 PM Results f or this VENDING MACHINE COIN COLLECTOR procedure are i n the results section. SURGICAL PATH, PARK Routine 01/10/2003 4:10 PM Re sults for this NICOLLET VENDING MACHINE COIN COLLECTOR procedure are i n the results section. LAB TYPE, SCREEN AND Routine 01/10/2003 10:20 Res ults for this CROSSMATCH AM VENDING MACHINE COIN COLLECTOR procedure are i n the results section. DRAW & HOLD Routine 01/10/2003 10:20 Results for this AM VENDING MACHINE COIN COLLECTOR procedure are i n the results section. HEMOGLOBIN, BLOOD Routine 01/10/2003 10:20 Result s for this AM VENDING MACHINE COIN COLLECTOR procedure are i n the results section. POTASSIUM Routine 01/10/2003 10:20 Results for this AM VENDING MACHINE COIN COLLECTOR procedure are i n the results section. documented in this encounter Results Liver Panel(Hepatic Function Panel) (01/18/2003 6:35 PM VENDING MACHINE COIN COLLECTOR) [facility] gist Method Time Signature Alk Phos 81 50 - 136 HP CONVERSION U/L Bilirubin Total 0.4 0.2 - 1.2 HP CONVERSION mg/dL Bilirubin, Direct 0.3 0.0 - 0.4 HP CONVERSIO N mg/dL Protein Total, Serum 7.2 5.7 - 8.3 HP CONVER MARIANA gm/dL Albumin 3.2 3.0 - 5.0 HP CONVERSION g/dL Aspartate 26 0 - 45 HP CONVERSION Aminotransferase U/L Alanine 54 0 - 65 HP CONVERSION Aminotransferase U/L Specimen (Source) Anatomical Collection Method Collection Time Re ceived Time Location / / Volume Laterality 01/18/2003 6:35 PM VENDING MACHINE COIN COLLECTOR Castillo Ch MD LAB_1 Performing Organization Address [facility]/ZIP Code Phon e Number HP CONVERSION INR/Protime (01/18/2003 7:00 AM VENDING MACHINE COIN COLLECTOR) Analysis Performed At Patho logist Time Signature Prothrombin Time 10.4 8.9 - 11.1 HP CONVERSIO N sec INR 1.0 No normal HP CONVERSION range Comment: Recommendations for INR in warfarin ther apy: (Chest, Vol. 119, No. 1, Mar 2000, Suppl ement). Prevention and treatment of venous throm bosis; ? INR 2.0-3.0 Treatment of PE; Prevention of systemic embolism due to prosthetic tissue heart valves, b ileaflet mechanical valves in the aortic position , acute NE, valvular heart disease and atrial fibril lation. Mechanical prosthetic valves, (high risk ). ? INR 2.5-3.5 Prevention of recurrent myocardial infar ct. These recommended ranges serve as guidel jorge. Adjustment outside these ranges may be clinically indicated. Specimen (Source) Anatomical Collection Method Collection Time Re ceived Time Location / / Volume Laterality 01/18/2003 7:00 AM VENDING MACHINE COIN COLLECTOR Castillo Ch MD LAB_1 Performing Organization Address [facility] Phon e Number HP CONVERSION CT Angio Chest W/WO IV Cont (01/16/2003 6:01 PM VENDING MACHINE COIN COLLECTOR) Anatomical Region Laterality Modality Chest, Lung, Vascular Other Specimen (Source) Anatomical Location Collection Method / Collectio n Time Received Time / Laterality Volume Narrative 01/16/2003 6:01 PM VENDING MACHINE COIN COLLECTOR The scan was performed with 125 cc Optiray 300. ??There is evidence for pulmonary emboli to the right lung i ncluding a large right upper lobe embolus, a small main pulmonary art jeanette embolus as well as moderate right lower lobe emboli. ??A de finite pulmonary embolus is not seen with certainty in the left lung . ??There is diffuse prominence of lung markings throughout t he upper and mid lungs as well as very extensive atelectasis or co nsolidation in the lower lobe and moderate bilateral pleural effusions , left slightly greater than right. ??There is no evidence for medias tinal or hilar lymphadenopathy. ??There are fatty reyes es in the liver. CONCLUSION: ??Extensive right sided pul monary emboli. ??Extensive bibasilar atelectasis with bilateral ple ural effusions. ??Report was called to Dr. Ch. [id number]/[id number] Dictating CAIN IRENE RADIOLOGIST Procedure Note Cain Caban - 05/18/2016Formattin g of this note might be different from the original. The scan was performed with 125 cc Optir ay 300. There is evidence for pulmonary emboli to the right lung i ncluding a large right upper lobe embolus, a small main pulmonary art jeanette embolus as well as moderate right lower lobe emboli. A defi nite pulmonary embolus is not seen with certainty in the left lung . There is diffuse prominence of lung markings throughout t he upper and mid lungs as well as very extensive atelectasis or co nsolidation in the lower lobe and moderate bilateral pleural effusions , left slightly greater than right. There is no evidence for mediasti nal or hilar lymphadenopathy. There are fatty changes in the liver. CONCLUSION: Extensive right sided pulmo nary emboli. Extensive bibasilar atelectasis with bilateral ple ural effusions. Report was called to Dr. Ch. [id number] Dictating CAIN IRENE RADIOLOGIST Castillo Ch MD RAD CT XR Chest 2 Views (01/16/2003 11:28 AM VENDING MACHINE COIN COLLECTOR) Anatomical Region Laterality Modality Chest, Lung Other Specimen (Source) Anatomical Location Collection Method / Collectio n Time Received Time / Laterality Volume Narrative 01/16/2003 11:28 AM VENDING MACHINE COIN COLLECTOR There is patchy atelectasis or minimal consolidation at the left base as well as mild prominence of lung aristides ngs in the medial right base. The upper lungs are clear. ??The heart a nd mediastinum are unremarkable. CONCLUSION: ??Patchy bibasilar atelectas is or minimal consolidation particularly in the medial lower lobe. [id number] Dictating CAIN IRENE RADIOLOGIST Procedure Note Cain Caban - 05/18/2016Formattin g of this note might be different from the original. There is patchy atelectasis or minimal c onsolidation at the left base as well as mild prominence of lung aristides ngs in the medial right base. The upper lungs are clear. The heart and mediastinum are unremarkable. CONCLUSION: Patchy bibasilar atelectasis or minimal consolidation particularly in the medial lower lobe. [id number] Dictating CAIN IRENE RADIOLOGIST Stas Porter MD RAD GD NM Lung Ventilation/Perfusion (VQ) (01/16/2003 11:08 AM VENDING MACHINE COIN COLLECTOR) Anatomical Region Laterality Modality Lung Other Specimen (Source) Anatomical Location Collection Method / Collectio n Time Received Time / Laterality Volume Narrative 01/16/2003 11:08 AM VENDING MACHINE COIN COLLECTOR The procedure was performed with 31 millicuries of technetium-99m labeled DTPA aerosol lot [id number] and 6.73 millicures of technetium-99m labeled MAA lot [id number]. ??There is a lar ge defect in the right upper lobe on the perfusion scan which is only partly matched. ??There are several other defects throughout both judith ngs which are primarily matched. ??The scan is suspicious for pu lmonary emboli and is at least intermediate to high probability but a C TPA is recommended for further evaluation. CONCLUSION: ??Intermediate to high proba bility VQ scan particularly with a large mismatch in the right upper lobe. ??CTPA gram is recommended. ??Report was called. [id number] Dictating CAIN IRENE RADIOLOGIST Procedure Note Cain Caban - 05/18/2016Formattin g of this note might be different from the original. The procedure was performed with 31 mill icuries of technetium-99m labeled DTPA aerosol lot [id number] and 6.73 millicures of technetium-99m labeled MAA lot [id number]. There is a large defect in the right upper lobe on the perfusion scan which is only partly matched. There are several other defects throughout both judith ngs which are primarily matched. The scan is suspicious for pulm onary emboli and is at least intermediate to high probability but a C TPA is recommended for further evaluation. CONCLUSION: Intermediate to high probabi lity VQ scan particularly with a large mismatch in the right upper lobe. CTPA gram is recommended. Report was called. [id number] Dictating CAIN IRENE RADIOLOGIST Stas Porter MD RAD NM Magnesium (01/13/2003 6:05 AM VENDING MACHINE COIN COLLECTOR) athologist Signature Magnesium 2.0 1.5 - 2.4 HP CONVERSION mg/dL Specimen (Source) Anatomical Collection Method Collection Time Re ceived Time Location / / Volume Laterality 01/13/2003 6:05 AM VENDING MACHINE COIN COLLECTOR Vonda Elizondo MD LAB_1 Performing Organization Address City/State/ZIP Code Phon e Number HP CONVERSION Phosphorus (01/13/2003 6:05 AM VENDING MACHINE COIN COLLECTOR) athologist Signature Phosphorus 2.6 2.5 - 4.5 HP CONVERSION Serum mg/dL Specimen (Source) Anatomical Collection Method Collection Time Re ceived Time Location / / Volume Laterality 01/13/2003 6:05 AM VENDING MACHINE COIN COLLECTOR Vonda Elizondo MD LAB_1 Performing Organization Address [facility] Code Phon e Number HP CONVERSION Potassium (01/13/2003 6:00 AM VENDING MACHINE COIN COLLECTOR) athologist Signature Potassium 4.4 3.5 - 5.2 HP CONVERSION meq/L Specimen (Source) Anatomical Collection Method Collection Time Re ceived Time Location / / Volume Laterality 01/13/2003 6:00 AM VENDING MACHINE COIN COLLECTOR Vonda Elizondo MD LAB_1 Performing Organization Address [facility] Code Phon e Number HP CONVERSION Potassium (01/12/2003 9:15 PM VENDING MACHINE COIN COLLECTOR) athologist Signature Potassium 4.2 3.5 - 5.2 HP CONVERSION meq/L Specimen (Source) Anatomical Collection Method Collection Time Re ceived Time Location / / Volume Laterality 01/12/2003 9:15 PM VENDING MACHINE COIN COLLECTOR Gonzalez Acuna MD LAB_1 Performing Organization Address City/State/ZIP Code Phon e Number HP CONVERSION (ABNORMAL) Hemoglobin, Blood (01/12/2003 6:46 PM VENDING MACHINE COIN COLLECTOR) athologist Signature Hemoglobin 9.9 (L) 11.8 - 15.5 HP CONVERSION gm/dL Specimen (Source) Anatomical Collection Method Collection Time Re ceived Time Location / / Volume Laterality 01/12/2003 6:46 PM VENDING MACHINE COIN COLLECTOR Vonda Elizondo MD LAB_1 Performing Organization Address City/State/ZIP Code Phon e Number HP CONVERSION Sodium (01/12/2003 6:46 PM VENDING MACHINE COIN COLLECTOR) athologist Signature Sodium 140 137 - 147 HP CONVERSION meq/L Specimen (Source) Anatomical Collection Method Collection Time Re ceived Time Location / / Volume Laterality 01/12/2003 6:46 PM VENDING MACHINE COIN COLLECTOR Vonda Elizondo MD LAB_1 Performing Organization Address [facility] Phon e Number HP CONVERSION (ABNORMAL) Hemoglobin, Blood (01/12/2003 12:50 PM VENDING MACHINE COIN COLLECTOR) athologist Signature Hemoglobin 9.4 (L) 11.8 - 15.5 HP CONVERSION gm/dL Specimen (Source) Anatomical Collection Method Collection Time Re ceived Time Location / / Volume Laterality 01/12/2003 12:50 PM VENDING MACHINE COIN COLLECTOR Courteny Sepulveda MD LAB_1 Performing Organization Address [facility] Phon e Number HP CONVERSION Potassium (01/12/2003 12:50 PM VENDING MACHINE COIN COLLECTOR) athologist Signature Potassium 3.5 3.5 - 5.2 HP CONVERSION meq/L Specimen (Source) Anatomical Collection Method Collection Time Re ceived Time Location / / Volume Laterality 01/12/2003 12:50 PM VENDING MACHINE COIN COLLECTOR Courtney Sepulveda MD LAB_1 Performing Organization Address [facility] Phon e Number HP CONVERSION Echocardiogram (01/12/2003 11:30 AM VENDING MACHINE COIN COLLECTOR) Specimen (Source) Anatomical Collection Method Collection Time Re ceived Time Location / / Volume Laterality 01/12/2003 11:30 AM VENDING MACHINE COIN COLLECTOR Narrative HP CONVERSION - 01/12/2003 11:30 AM VENDING MACHINE COIN COLLECTOR LV(d) 43 ??mm (37-56) ?RV(d) ? mm (07-26) ?? E ?129 ??cm/sec LV(s) 27 ??mm (23-34) ?Ao Root 28 ? ?mm (20-37) ?? A ?109 ??cm/sec Septum 8 mm (08-25) ? LA ?29 ??mm (19-40) ?? E:A ?ratio LV Wall 9 mm (08-25) ?VENU ? cm^2 ? DT ?? 169 ??ms EF ? % ??(>55%) ?MVA ? cm^2 ? RV/RA Grad ??mmHg FS ?38 ?? % (>25%) ? Mean Ao Gr ad ? mmHg ?Est RA Pres The above measurements are done in the two-dimensional view. INDICATION FOR EXAM: Hypotension; Hypoxi a; Status-post abdominal surgery. ??(458.8) This study included two-dimensional echo , pulse, continuous wave and color Doppler. CONCLUSION: 1. ??Visually estimated left ventricula r ejection fraction is 60%. 2. ??Mild to moderate tricuspid insuffi ciency is present. GENERAL COMMENTS: Adequate quality two-d imensional was performed and interpreted. ??Good quality pulse contin uous wave and color Doppler was performed and interpreted. ??Technically adequate images limited to parasternal and apical views. ??The kendra ent's rhythm is sinus, rate 90 bpm. VENTRICLES: ?? Left ventricular chamber size, wall motion and wall thickness are normal. ??Visually estimat ed left ventricular ejection fraction is 60%. ??Normal left ventricul ar filling pattern for age. The right ventricle is normal. ATRIA: ?? Both atria appear normal. VALVES: The following valves are normal: aortic, mitral, and tricuspid. ??Trace mitral insufficiency is present. ??The tricuspid valve is normal. ??Mild to moderate tric uspid insufficiency is present. The peak velocity of the tricuspid regur gitant jet is 2.9 msec, corresponding to a right ventricular/rig ht atrial pressure difference of 33 mmHg. MISCELLANEOUS: ??E-paged to Dr. Israel. Vonda Elizondo MD ET ECHO ORDERABLES Performing Organization Address City/State/ZIP Code Phon e Number HP CONVERSION XR Portable Chest 1 View (01/12/2003 6:57 AM VENDING MACHINE COIN COLLECTOR) Anatomical Region Laterality Modality Chest, Lung Other Specimen (Source) Anatomical Location Collection Method / Collectio n Time Received Time / Laterality Volume Narrative 01/12/2003 6:57 AM VENDING MACHINE COIN COLLECTOR PORTABLE 0615 HOURS NG tube is present with tip in the stoma ch. ??Lungs show increase in bilateral diffuse infiltrates suspicious for pulmonary edema and/or ARDS. ??There also is a probable small r ight and possible left pleural effusion. ??There is mild cardiomegaly. ??The gaseous distention of the stomach previously seen has resolved wit h the presence of the NG tube. LA rlr [id number] Dictating STEW PACHECO RADIOLOGIST Procedure Note Stew Navarrete - 05/18/2016Formattin g of this note might be different from the original. PORTABLE 0615 HOURS NG tube is present with tip in the stoma ch. Lungs show increase in bilateral diffuse infiltrates suspicious for pulmonary edema and/or ARDS. There also is a probable small rig ht and possible left pleural effusion. There is mild cardiomegaly. Th e gaseous distention of the stomach previously seen has resolved wit h the presence of the NG tube. LA rlr [id number] Dictating STEW PACHECO RADIOLOGIST Vonda Elizondo MD RAD PORTABLE (ABNORMAL) Complete Blood Count-No Diff (01/12/2003 5:05 AM VENDING MACHINE COIN COLLECTOR) [facility] gist Method Time Signature White Blood Cell 8.2 3.8 - HP CONVERSION Count 11.0 K/cmm Red Blood Cell 3.26 (L) 3.70 - HP CONVERSION Count 5.20 m/cmm Hemoglobin 9.6 (L) 11.8 - HP CONVERSION 15.5 gm/dL Hematocrit 28.2 (L) 35.0 - HP CONVERSION 46.0 % Mean Corpuscular 86.3 80.0 - HP CONVERSION Volume 100.0 fl Mean Corpuscular 29.4 27.0 - HP CONVERSION Hemoglobin 34.0 pg Mean Corpuscular 34.0 32.0 - HP CONVERSION Hemoglobin Conc 36.5 [place] gm/dL RDW 14.3 11.0 - HP CONVERSION 15.0 % Platelet Count 127 (L) 140 - 450 HP CONVERSION k/cmm Specimen (Source) Anatomical Collection Method Collection Time Re ceived Time Location / / Volume Laterality 01/12/2003 5:05 AM VENDING MACHINE COIN COLLECTOR Vonda Elizondo MD LAB_1 Performing Organization Address City/State/ZIP Code Phon e Number HP CONVERSION (ABNORMAL) Basic Metabolic Panel (01/12/2003 5:00 AM VENDING MACHINE COIN COLLECTOR) [facility] Method Time Signature Creatinine Serum 0.8 0.5 - 1.5 HP CONVERSION mg/dL Lab Glucose 132 (H) 60 - 109 HP CONVERSION mg/dL Bicarbonate 28 23 - 33 HP CONVERSION mmol/L Chloride 112 (H) 98 - 110 HP CONVERSION meq/L Potassium 3.3 (L) 3.5 - 5.2 HP CONVERSION meq/L Sodium 145 137 - 147 HP CONVERSION meq/L Blood Urea 5 5 - 26 HP CONVERSION Nitrogen mg/dL Calcium 7.2 (AA) 8.5 - HP CONVERSION 10.5 mg/dL Specimen (Source) Anatomical Collection Method Collection Time Re ceived Time Location / / Volume Laterality 01/12/2003 5:00 AM VENDING MACHINE COIN COLLECTOR Vonda Elizondo MD LAB_1 Performing Organization Address City/State/ZIP Code Phon e Number HP CONVERSION (ABNORMAL) Magnesium (01/12/2003 5:00 AM VENDING MACHINE COIN COLLECTOR) athologist Signature Magnesium 1.4 (L) 1.5 - 2.4 HP CONVERSION mg/dL Specimen (Source) Anatomical Collection Method Collection Time Re ceived Time Location / / Volume Laterality 01/12/2003 5:00 AM VENDING MACHINE COIN COLLECTOR Vonda Elizondo MD LAB_1 Performing Organization Address City/State/ZIP Code Phon e Number HP CONVERSION (ABNORMAL) Phosphorus (01/12/2003 5:00 AM VENDING MACHINE COIN COLLECTOR) [facility] Method Time Signature Phosphorus 1.0 (AA) 2.5 - 4.5 HP CONVERSION Serum mg/dL Comment: PHOS CALLED TO WILLIAMS ON 2S, 12/06 10:52 [place] Specimen (Source) Anatomical Collection Method Collection Time Re ceived Time Location / / Volume Laterality 01/12/2003 5:00 AM VENDING MACHINE COIN COLLECTOR Vonda Elizondo MD LAB_1 Performing Organization Address City/State/ZIP Code Phon e Number HP CONVERSION (ABNORMAL) B-Type Natriuretic Peptide (01/11/2003 2:29 PM VENDING MACHINE COIN COLLECTOR) [facility] Method Time Signature B-Type 268 (H) 0 - 100 HP CONVERSION Natriuretic pg/mL Peptide Specimen (Source) Anatomical Collection Method Collection Time Re ceived Time Location / / Volume Laterality 01/11/2003 2:29 PM VENDING MACHINE COIN COLLECTOR Vonda Elizondo MD LAB_1 Performing Organization Address City/State/ZIP Code Phon e Number HP CONVERSION (ABNORMAL) Hemoglobin, Blood (01/11/2003 2:29 PM VENDING MACHINE COIN COLLECTOR) P athologist Signature Hemoglobin 10.5 (L) 11.8 - 15.5 HP CONVERSION gm/dL Specimen (Source) Anatomical Collection Method Collection Time Re ceived Time Location / / Volume Laterality 01/11/2003 2:29 PM VENDING MACHINE COIN COLLECTOR Vonda Elizondo MD LAB_1 Performing Organization Address City/State/ZIP Code Phon e Number HP CONVERSION ECG 12 Lead Inpatient (01/11/2003 2:01 PM VENDING MACHINE COIN COLLECTOR) Specimen (Source) Anatomical Collection Method Collection Time Re ceived Time Location / / Volume Laterality 01/11/2003 2:01 PM VENDING MACHINE COIN COLLECTOR Narrative HP CONVERSION - 01/11/2003 2:01 PM VENDING MACHINE COIN COLLECTOR Normal sinus rhythm Nonspecific ST and T wave abnormality Abnormal ECG No previous ECGs available Vonda Elizondo MD PN ECG ORDERABLES Performing Organization Address City/[facility]/ZIP Code Phon e Number HP CONVERSION XR Portable Chest 1 View (01/11/2003 11:08 AM VENDING MACHINE COIN COLLECTOR) Anatomical Region Laterality Modality Chest, Lung Other Specimen (Source) Anatomical Location Collection Method / Collectio n Time Received Time / Laterality Volume Narrative 01/11/2003 11:08 AM VENDING MACHINE COIN COLLECTOR PORTABLE 10:06 A.M. HISTORY: ??Postop, rule out infiltrate/o verload. No comparison. ??There is hypoaeration o f the lungs. ??The heart size is borderline to mildly enlarged. ??Ther e are mild bilateral perihilar and lower lung field infiltrates and thi s in part may be related to mild CHF as well as the hypoaeration. ?? No focal areas of consolidation are seen even though due t o slightly light technique element of more focal density in the lef t retrocardiac region is not entirely excluded and can certainly be a ssessed with followup. Appears to be some blunting of the right lateral costophrenic angle which may represent small effusion. ??Di stended stomach with air is also noted. MT rlr [id number] Dictating NATHAN MARI RADIOLOGIST Procedure Note Nathan Talbot - 05/19/2016Formatting o f this note might be different from the original. PORTABLE 10:06 A.M. HISTORY: Postop, rule out infiltrate/ove rload. No comparison. There is hypoaeration of the lungs. The heart size is borderline to mildly enlarged. There are mild bilateral perihilar and lower lung field infiltrates and thi s in part may be related to mild CHF as well as the hypoaeration. No focal areas of consolidation are seen even though due t o slightly light technique element of more focal density in the lef t retrocardiac region is not entirely excluded and can certainly be a ssessed with followup. Appears to be some blunting of the right lateral costophrenic angle which may represent small effusion. Dist ended stomach with air is also noted. LA rlr [id number] Dictating NATHAN MARI RADIOLOGIST Vonda Elizondo MD RAD PORTABLE (ABNORMAL) Hemoglobin, Blood (01/11/2003 8:50 AM VENDING MACHINE COIN COLLECTOR) athologist Signature Hemoglobin 11.3 (L) 11.8 - 15.5 HP CONVERSION gm/dL Specimen (Source) Anatomical Collection Method Collection Time Re ceived Time Location / / Volume Laterality 01/11/2003 8:50 AM VENDING MACHINE COIN COLLECTOR Vonda Elizondo MD LAB_1 Performing Organization Address City/State/ZIP Code Phon e Number HP CONVERSION Platelets (01/10/2003 8:17 PM VENDING MACHINE COIN COLLECTOR) athologist Signature Platelet Count 171 140 - 450 HP CONVERSION k/cmm Specimen (Source) Anatomical Collection Method Collection Time Re ceived Time Location / / Volume Laterality 01/10/2003 8:17 PM VENDING MACHINE COIN COLLECTOR Germaine Kang MD LAB_1 Performing Organization Address City/State/ZIP Code Phon e Number HP CONVERSION Complete Blood Count-No Diff (01/10/2003 6:10 PM VENDING MACHINE COIN COLLECTOR) athologist Signature White Blood N/A 3.8 - 11.0 HP CONVERSION Cell Count K/cmm Comment: WBC CORRECTED FROM ?16.3 TO N/A ?ON 01/10/03 ??BY LO CLOT FOUND IN LID OF TUBE; RESULTS INVAL ID; REDRAW IF NEEDED ELSI CALLED DIAMOND IN PACU 01/10/03 19: 32 Red Blood Cell Count N/A 3.70 - 5.20 m/cmm H P CONVERSION Comment: RBC CORRECTED FROM ?4.57 TO N/A ?ON 01/11/03 ??BY MENG SPECIMEN CLOTTED/corry Hemoglobin N/A 11.8 - 15.5 gm/dL HP CONVERSI ON Comment: HGB CORRECTED FROM 13.3 TO N/A ON 01/11/03 BY MNEG Hematocrit N/A 35.0 - 46.0 % HP CONVERSION Comment: HCT CORRECTED FROM 39.8 TO N/A ON 01/11/03 BY MENG Mean Corpuscular Volume N/A 80.0 - 100.0 fl HP CONVERSION Comment: MCV CORRECTED FROM 87.2 TO N/A ON 01/11/03 BY MENG Mean Corpuscular Hemoglobin N/A 27.0 - 34.0 pg HP CONVERSION Comment: MCH CORRECTED FROM 29.2 TO N/A ON 01/11/03 BY MENG Mean Corpuscular Hemoglobin Conc St. N/A 32.0 - 36.5 gm/dL HP CONVERSION Jacob Comment: MCHC CORRECTED FROM 33.5 TO N/A ON 01/11/03 BY MENG RDW N/A 11.0 - 15.0 % HP CONVERSION Comment: RDW CORRECTED FROM 13.9 TO N/A ON 01/11/03 BY MENG Platelet Count N/A 140 - 450 k/cmm HP CONVER MARIANA Comment: CLOT FOUND IN LID OF TUBE; REDR AW IF NEEDED. Specimen (Source) Anatomical Collection Method Collection Time Re ceived Time Location / / Volume Laterality 01/10/2003 6:10 PM VENDING MACHINE COIN COLLECTOR Gonzalez Acuna MD LAB_1 Performing Organization Address City/State/ZIP Code Phon e Number HP CONVERSION (ABNORMAL) Electrolytes (NA, K, CL, Bicarb) (01/10/2003 6:10 PM VENDING MACHINE COIN COLLECTOR) P athologist Signature Sodium 139 137 - 147 HP CONVERSION meq/L Potassium 3.6 3.5 - 5.2 HP CONVERSION meq/L Chloride 111 (H) 98 - 110 HP CONVERSION meq/L Bicarbonate 22 (L) 23 - 33 HP CONVERSION mmol/L Specimen (Source) Anatomical Collection Method Collection Time Re ceived Time Location / / Volume Laterality 01/10/2003 6:10 PM VENDING MACHINE COIN COLLECTOR Gonzalez Acuna MD LAB_1 Performing Organization Address [facility]/ZIP Code Phon e Number HP CONVERSION (ABNORMAL) INR/Protime (01/10/2003 4:20 PM VENDING MACHINE COIN COLLECTOR) [facility] Method Time Signature Prothrombin Time 14.1 (H) 8.9 - HP CONVERSION 11.1 sec Comment: [place] [id number] 17:0 4/MJ INR 1.4 No normal range HP CONVERSION Comment: Recommendations for INR in warfarin ther apy: (Chest, Vol. 119, No. 1, Mar 2000, Suppl ement). Prevention and treatment of venous throm bosis; ? INR 2.0-3.0 Treatment of PE; Prevention of systemic embolism due to prosthetic tissue heart valves, b ileaflet mechanical valves in the aortic position , acute NE, valvular heart disease and atrial fibril lation. Mechanical prosthetic valves, (high risk ). ? INR 2.5-3.5 Prevention of recurrent myocardial infar ct. These recommended ranges serve as guidel jorge. Adjustment outside these ranges may be clinically indicated. Specimen (Source) Anatomical Collection Method Collection Time Re ceived Time Location / / Volume Laterality 01/10/2003 4:20 PM VENDING MACHINE COIN COLLECTOR Gonzalez Acuna MD LAB_1 Performing Organization Address [facility] Phon e Number HP CONVERSION (ABNORMAL) Hemoglobin, Blood (01/10/2003 4:20 PM VENDING MACHINE COIN COLLECTOR) athologist Signature Hemoglobin 6.4 (AA) 11.8 - 15.5 HP CONVERSION gm/dL Comment: ELSI CALLED KARELY [place] 7 3 16:25 Specimen (Source) Anatomical Collection Method Collection Time Re ceived Time Location / / Volume Laterality 01/10/2003 4:20 PM VENDING MACHINE COIN COLLECTOR Gonzalez Acuna MD LAB_1 Performing Organization Address [facility] Phon e Number HP CONVERSION APTT (Activated Partial Thromboplastin Time) (01/10/2003 4:20 PM VENDING MACHINE COIN COLLECTOR) [facility] Method Time Signature Partial 25.2 22.3 - HP CONVERSION Thromboplastin Time 29.3 sec Specimen (Source) Anatomical Collection Method Collection Time Re ceived Time Location / / Volume Laterality 01/10/2003 4:20 PM VENDING MACHINE COIN COLLECTOR Gonzalez Acuna MD LAB_1 Performing Organization Address City/State/ZIP Code Phon e Number HP CONVERSION Platelets (01/10/2003 4:20 PM VENDING MACHINE COIN COLLECTOR) P athologist Signature Platelet Count 192 140 - 450 HP CONVERSION k/cmm Specimen (Source) Anatomical Collection Method Collection Time Re ceived Time Location / / Volume Laterality 01/10/2003 4:20 PM VENDING MACHINE COIN COLLECTOR Gonzalez Acuna MD LAB_1 Performing Organization Address City/State/ZIP Code Phon e Number HP CONVERSION Pathology Report (01/10/2003 4:10 PM VENDING MACHINE COIN COLLECTOR) Patholo gist Method Time Signature Surgical SEE TEXT No normal HP CONVERSION Pathology range Comment: Patient: WOO RAYA ?S URGICAL PATHOLOGY REPORT Pathology # ??[id number] ?Date Obtained: ? Date Received: DIAGNOSIS: ?Uterus, hysterectomy: ?1. ??Leiomyoma, benign. ?2. ??Proliferative phase endometri um. ?3. ??Benign cervical tissue. ?Óscar Mcneil M.D. ?(electronic signature) JSM/JSM/kmr Date of Report: 01/11/03 Pathology # ??[id number] ?Date Obtained: ? Date Received: ORGAN/TISSUE SITE: ?Uterus and cervix GROSS DESCRIPTION: ?The specimen consists of a uterus with detached cervix weighing 160 gm. ?The uterus measures 8.7 x 7.4 x 5 cm. ??The cervix measures 3.4 cm in ?diameter x 1.5 cm in length. The u terus is distorted by a myometrial ?nodule. ??The uterus has an overal l rubbery consistency. Bivalving the ?uterus reveals a distorted endomet rial cavity measuring approximately 2.5 ?cm in length x roughly 1.5 cm in w idth. ??The endometrium is less than 2 mm ?in thickness and pale pink-monsivais in color. ??Serial cut sections through the ?myometrium reveal a well delimited nodule measuring 4.8 cm in maximum ?dimension. ??This nodule has a mar kedly lobulated and trabeculated cut ?surface. A single small 0.5 cm are a of hemorrhagic discoloration is ?present. ?Block summary: ??Blocks 1 and 2, e ndomyometrium, blocks 3 through 5, ?myometrial nodule (block 3 contain s an area of hemorrhagic discoloration), ?block 6, cervix. JSM/lauren Specimen (Source) Anatomical Collection Method Collection Time Re ceived Time Location / / Volume Laterality 01/10/2003 4:10 PM VENDING MACHINE COIN COLLECTOR Gonzalez Acuna MD LAB_1 Performing Organization Address City/State/ZIP Code Phon e Number HP CONVERSION Potassium (01/10/2003 10:20 AM VENDING MACHINE COIN COLLECTOR) athologist Signature Potassium 3.5 3.5 - 5.2 HP CONVERSION meq/L Specimen (Source) Anatomical Collection Method Collection Time Re ceived Time Location / / Volume Laterality 01/10/2003 10:20 AM VENDING MACHINE COIN COLLECTOR Courtney Sepulveda MD LAB_1 Performing Organization Address [facility] Phon e Number HP CONVERSION Draw & Hold (01/10/2003 10:20 AM VENDING MACHINE COIN COLLECTOR) P athologist Signature Draw And Hold Done No normal HP CONVERSION range Specimen (Source) Anatomical Collection Method Collection Time Re ceived Time Location / / Volume Laterality 01/10/2003 10:20 AM VENDING MACHINE COIN COLLECTOR Courtney Sepulveda MD LAB_1 Performing Organization Address [facility] Phon e Number HP CONVERSION Hemoglobin, Blood (01/10/2003 10:20 AM VENDING MACHINE COIN COLLECTOR) athologist Signature Hemoglobin 13.0 11.8 - 15.5 HP CONVERSION gm/dL Specimen (Source) Anatomical Collection Method Collection Time Re ceived Time Location / / Volume Laterality 01/10/2003 10:20 AM VENDING MACHINE COIN COLLECTOR Courtney Sepulveda MD LAB_1 Performing Organization Address [facility] Phon e Number HP CONVERSION LAB TYPE, SCREEN AND CROSSMATCH (01/10/2003 10:20 AM VENDING MACHINE COIN COLLECTOR) P athologist Signature BB BLOOD TYPE A POS No normal HP CONVERSION (BLOOD GROUP & range RH) Blood Type # [id number] HP CONVERSION Units Requested N/O BB NEG No normal HP CONVERSION ANTIBODY range SCREEN Specimen (Source) Anatomical Collection Method Collection Time Re ceived Time Location / / Volume Laterality 01/10/2003 10:20 AM VENDING MACHINE COIN COLLECTOR Gonzalez Acuna MD LAB_1 Performing Organization Address City/[facility] Phon e Number HP CONVERSION documented in this encounter Visit Diagnoses Not on filedocumented in this encounter
--- OUTSIDE RECORDS SUMMARY | 2022-02-26 10:55 | XMS_ITS | Encounter Summary ---
:1960 Author Organization [facility] Address [address], [place] [address] Care Team Providers Name Role Phone Pauline Jimenez PA-C Primary Care Provider Encounter Details Date Type Department Care Team Description 06/06/2003 PN Conversion Only MANDAEN CONVERSION Ashley Jimenez PA-C [address] [place], [place] [address] (Wo rk) Social History Tobacco Use Types Packs/Day Years Used Date Smoking Tobacco: Never Assessed Sex Assigned at Date Recorded Not on file documented as of this encounter Plan of Treatment Not on filedocumented as of this encounter Procedures Procedure Name Priority Date/Time Associated Diagnosis Comme nts INR/PROTIME Routine 06/06/2003 3:55 PM Results f or this SKIMMER SCOOP OPERATOR procedure are i n the results section . documented in this encounter Results (ABNORMAL) INR/Protime (06/06/2003 3:55 PM SKIMMER SCOOP OPERATOR) [facility] Method Time Signature Prothrombin 20.3 (H) 8.9 - 11.1 HP CONVERSION Time [...] valves in the aortic position , acute [place], valvular heart disease and atrial fibril lation. Mechanical prosthetic valves, (high risk ). ? INR 2.5-3.5 Prevention of recurrent myocardial infar ct. These recommended ranges serve as guidel jorge. Adjustment outside these ranges may be clinically indicated. Specimen (Source) Anatomical Collection Method Collection Time Re ceived Time Location / / Volume Laterality 06/06/2003 3:55 PM SKIMMER SCOOP OPERATOR Pauline Jimenez PA-C LAB_1 Performing Organization Address City/State/ZIP Code Phon e Number HP CONVERSION documented in this encounter Visit Diagnoses Not on filedocumented in this encounter Care Teams Quality Process Lead Relationship Specialty Start Date End Date Pauline Jimenez PA-C PCP - General 06/17/10 12/12/[address] [place] [address] documented as of this encounter
--- OUTSIDE RECORDS SUMMARY | 2022-02-26 10:55 | XMS_ITS | Encounter Summary ---
:1960 Author Organization [facility] Address [address], [place] [address] Care Team Providers Name Role Phone Unavailable Primary Care Provider Unavailable Encounter Details Date Type Department Care Team Description 12/15/2002 Hospital Encounter CHEONDOISM CONVERSION Ashley Jimenez PA-C [address] [place] [address] (Wo rk) Social History Tobacco Use Types Packs/Day Years Used Date Smoking Tobacco: Never Assessed Sex Assigned at Date Recorded Not on file documented as of this encounter Plan of Treatment Not on filedocumented as of this encounter Procedures Procedure Name Priority Date/Time Associated Diagnosis Comme nts STRESS ECHO Routine 12/15/2002 9:48 AM Results f or this CDT procedure are i n the results section . documented in this encounter Results Stress Echocardiogram (12/15/2002 9:48 AM CDT) Specimen (Source) Anatomical Collection Method Collection Time Re ceived Time Location / / Volume Laterality 12/15/2002 9:48 AM CDT Narrative HP CONVERSION - 12/15/2002 9:48 AM CDT Resting heart rate: 60 ? Resting blood pressure: 104/82 Maximum predicted heart rate: 179 ? Maximum blood pressure: 138/94 Maximum heart rate achieved: ??160 ?Rate pressure product: ??22,080 % Maximum heart rate achieved: 89% ?? E xercise duration: 7:55 ?Definity: ??0.6 cc INDICATION FOR EXAM: Abnormal electrocar diogram. ??Pre-operative evaluation. This study included two-dimensional echo , pulse, continuous wave and color Doppler. MEDICATIONS: ??No medications which woul d affect test results. PROTOCOL: ??Bike ergometer-echocardiogra m with contrast. SYMPTOMS: ??Fatigue, Shortness of breath ; Musculoskeletal. ECG, REST: ??Normal ST-T segments. ECG, STRESS: ??No significant ST segment shifts noted. ECHO, REST: ??Chamber size, wall motion, and wall thickness are normal. Mild mitral regurgitation is present. ?? Global left ventricular function is normal. ??Visually estimated left ventricular ejection fraction is 60%. ECHO, STRESS: ??All segments display buffy ropriate hyperkinesis; ejection fraction increases appropriately. CONCLUSION: ??1. ??Normal exercise echoc ardiogram with adequate ? heart rate and workload. ? 2. ??No evidence for inducible ischemia. ? 3. ??Image quality wa s poor. ? 4. ??Mild mitral regu rgitation is present. Pauline Jimenez PA-C ET ECHO ORDERABLES Performing Organization Address City/State/ZIP Code Phon e Number HP CONVERSION documented in this encounter Visit Diagnoses Not on filedocumented in this encounter
--- OUTSIDE RECORDS SUMMARY | 2022-02-26 10:55 | XMS_ITS | Encounter Summary ---
:1960 Author Organization [email or web address] Address [address] [address] Care Team Providers Name Role Phone Pauline Jimenez PA-C Primary Care Provider Encounter Details Date Type Department Care Team Description 02/16/2003 PN Conversion Only TAOIST CONVERSION Ashley Jimenez PA-C [address] [place] [address] (Wo rk) Social History Tobacco Use Types Packs/Day Years Used Date Smoking Tobacco: Never Assessed Sex Assigned at Date Recorded Not on file documented as of this encounter Plan of Treatment Not on filedocumented as of this encounter Procedures Procedure Name Priority Date/Time Associated Diagnosis Comme nts INR/PROTIME Routine 02/16/2003 3:55 PM Results f or this SENSITIZED PAPER TESTER procedure are i n the results section . documented in this encounter Results (ABNORMAL) INR/Protime (02/16/2003 3:55 PM SENSITIZED PAPER TESTER) [facility] Method Time Signature Prothrombin 31.1 (H) 8.9 - 11.1 HP CONVERSION Time sec INR 2.9 No normal HP CONVERSION range Comment: Recommendations for INR in warfarin ther apy: (Chest, Vol. 119, No. 1, Mar 2000, Suppl ement). Prevention and treatment of venous throm bosis; ? INR 2.0-3.0 Treatment of PE; Prevention of systemic embolism due to prosthetic tissue heart valves, b ileaflet mechanical valves in the aortic position , acute [place], valvular heart disease and atrial fibril lation. Mechanical prosthetic valves, (high risk ). ? INR 2.5-3.5 Prevention of recurrent myocardial infar ct. These recommended ranges serve as guidel jorge. Adjustment outside these ranges may be clinically indicated. Specimen (Source) Anatomical Collection Method Collection Time Re ceived Time Location / / Volume Laterality 02/16/2003 3:55 PM SENSITIZED PAPER TESTER Pauline Jimenez PA-C LAB_1 Performing Organization Address City/State/ZIP Code Phon e Number HP CONVERSION documented in this encounter Visit Diagnoses Not on filedocumented in this encounter Care Teams Forensic Technician Relationship Specialty Start Date End Date Pauline Jimenez PA-C PCP - General 06/17/10 12/12/[address] [place] [address] documented as of this encounter
--- OUTSIDE RECORDS SUMMARY | 2022-02-26 10:55 | XMS_ITS | Encounter Summary ---
:1960 Author Organization [facility] Address [address] [address] Care Team Providers Name Role Phone Pauline Jimenez PA-C Primary Care Provider Encounter Details Date Type Department Care Team Description 02/23/2003 PN Conversion Only QUAKER CONVERSION Ashley Jimenez PA-C [address] [place] [address] (Wo rk) Social History Tobacco Use Types Packs/Day Years Used Date Smoking Tobacco: Never Assessed Sex Assigned at Date Recorded Not on file documented as of this encounter Plan of Treatment Not on filedocumented as of this encounter Procedures Procedure Name Priority Date/Time Associated Diagnosis Comme nts INR/PROTIME Routine 02/23/2003 4:00 PM Results f or this CONTROL MANAGER procedure are i n the results section . documented in this encounter Results (ABNORMAL) INR/Protime (02/23/2003 4:00 PM CONTROL MANAGER) [facility] Method Time Signature Prothrombin 33.6 (H) 8.9 - 11.1 HP CONVERSION Time sec INR 3.1 No normal HP CONVERSION range Comment: Recommendations for INR in warfarin ther apy: (Chest, Vol. 119, No. 1, Mar 2000, Suppl ement). Prevention and treatment of venous throm bosis; ? INR 2.0-3.0 Treatment of PE; Prevention of systemic embolism due to prosthetic tissue heart valves, b ileaflet mechanical valves in the aortic position , acute [place], valvular heart disease and atrial fibril lation. Mechanical prosthetic valves, (high risk ). ? INR 2.5-3.5 Prevention of recurrent myocardial infar ct. These recommended ranges serve as guidel jorge. Adjustment outside these ranges may be clinically indicated. Specimen (Source) Anatomical Collection Method Collection Time Re ceived Time Location / / Volume Laterality 02/23/2003 4:00 PM CONTROL MANAGER Pauline Jimenez PA-C LAB_1 Performing Organization Address City/State/ZIP Code Phon e Number HP CONVERSION documented in this encounter Visit Diagnoses Not on filedocumented in this encounter Care Teams Library Science Instructor Relationship Specialty Start Date End Date Pauline Jimenez PA-C PCP - General 06/17/10 12/12/[address] [place] [address] documented as of this encounter
--- OUTSIDE RECORDS SUMMARY | 2022-02-26 10:55 | XMS_ITS | Encounter Summary ---
:1960 Author Organization [facility] Address [address], [place] [address] Care Team Providers Name Role Phone Pauline Jimenez PA-C Primary Care Provider Encounter Details Date Type Department Care Team Description 04/21/2002 PN Conversion Only BUDDHIST CONVERSION Domonique Todd MD [address] [place] [address] (Wo rk) Social History Tobacco Use Types Packs/Day Years Used Date Smoking Tobacco: Never Assessed Sex Assigned at Date Recorded Not on file documented as of this encounter Plan of Treatment Not on filedocumented as of this encounter Visit Diagnoses Not on filedocumented in this encounter Care Teams Pocket Builder Relationship Specialty Start Date End Date Pauline Jimenez PA-C PCP - General 06/17/10 12/12/[address] [place] [address] documented as of this encounter
--- OUTSIDE RECORDS SUMMARY | 2022-02-26 10:55 | XMS_ITS | Encounter Summary ---
:1960 Author Organization [email or web address] Address [address] [address] Care Team Providers Name Role Phone Pauline Jimenez PA-C Primary Care Provider Encounter Details Date Type Department Care Team Description 02/09/2003 PN Conversion Only RELIGION CONVERSION Ashley Jimenez PA-C [address] [place] [address] (Wo rk) Social History Tobacco Use Types Packs/Day Years Used Date Smoking Tobacco: Never Assessed Sex Assigned at Date Recorded Not on file documented as of this encounter Plan of Treatment Not on filedocumented as of this encounter Procedures Procedure Name Priority Date/Time Associated Diagnosis Comme nts INR/PROTIME Routine 02/09/2003 9:12 AM Results f or this GRILL COOK procedure are i n the results section . documented in this encounter Results (ABNORMAL) INR/Protime (02/09/2003 9:12 AM GRILL COOK) [facility] Method Time Signature Prothrombin 25.1 (H) 8.9 [...] valves in the aortic position , acute [place], valvular heart disease and atrial fibril lation. Mechanical prosthetic valves, (high risk ). ? INR 2.5-3.5 Prevention of recurrent myocardial infar ct. These recommended ranges serve as guidel jorge. Adjustment outside these ranges may be clinically indicated. Specimen (Source) Anatomical Collection Method Collection Time Re ceived Time Location / / Volume Laterality 02/09/2003 9:12 AM GRILL COOK Pauline Jimenez PA-C LAB_1 Performing Organization Address City/State/ZIP Code Phon e Number HP CONVERSION documented in this encounter Visit Diagnoses Not on filedocumented in this encounter Care Teams Coat Agent Relationship Specialty Start Date End Date Pauline Jimenez PA-C PCP - General 06/17/10 12/12/[address] [place] [address] documented as of this encounter
--- OUTSIDE RECORDS SUMMARY | 2022-02-26 10:55 | XMS_ITS | Encounter Summary ---
:1960 Author Organization [facility] Address [address] [address] Care Team Providers Name Role Phone Pauline Jimenez PA-C Primary Care Provider Encounter Details Date Type Department Care Team Description 04/06/2003 PN Conversion Only TEMPLE CONVERSION Ashley Jimenez PA-C [address] [place], [place] [address] (Wo rk) Social History Tobacco Use Types Packs/Day Years Used Date Smoking Tobacco: Never Assessed Sex Assigned at Date Recorded Not on file documented as of this encounter Plan of Treatment Not on filedocumented as of this encounter Procedures Procedure Name Priority Date/Time Associated Diagnosis Comme nts INR/PROTIME Routine 04/06/2003 3:52 PM Results f or this WELLNESS PROGRAM ADMINISTRATOR procedure are i n the results section . documented in this encounter Results (ABNORMAL) INR/Protime (04/06/2003 3:52 PM WELLNESS PROGRAM ADMINISTRATOR) [facility] Method Time Signature Prothrombin 24.7 (H) 8.9 - 11.1 HP CONVERSION Time [...] ceived Time Location / / Volume Laterality 04/06/2003 3:52 PM WELLNESS PROGRAM ADMINISTRATOR Pauline Jimenez PA-C LAB_1 Performing Organization Address City/State/ZIP Code Phon e Number HP CONVERSION documented in this encounter Visit Diagnoses Not on filedocumented in this encounter Care Teams Equipment Operating Engineer Relationship Specialty Start Date End Date Pauline Jimenez PA-C PCP - General 06/17/10 12/12/[address] [place] [address] documented as of this encounter
--- OUTSIDE RECORDS SUMMARY | 2022-02-26 10:55 | XMS_ITS | Encounter Summary ---
:1960 Author Organization [facility] Address [address] [place] [address] Care Team Providers Name Role Phone Pauline Jimenez PA-C Primary Care Provider Encounter Details Date Type Department Care Team Description 08/23/1997 PN Conversion Only FAITH CONVERSION aamir reynolds, Leighton Thompson MD [address] [place], [place] [address] (Wo rk) Social History Tobacco Use Types Packs/Day Years Used Date Smoking Tobacco: Never Assessed Sex Assigned at Date Recorded Not on file documented as of this encounter Plan of Treatment Not on filedocumented as of this encounter Visit Diagnoses Not on filedocumented in this encounter Care Teams Chairman Ceo Relationship Specialty Start Date End Date Pauline Jimenez PA-C PCP - General 06/17/10 12/12/[address] [place] [address] documented as of this encounter
--- OUTSIDE RECORDS SUMMARY | 2022-02-26 10:55 | XMS_ITS | Encounter Summary ---
:1960 Author Organization [facility] Address [address] [place] [address] Care Team Providers Name Role Phone ShoaibPauline coates Faisal BAUM Primary Care Provider Encounter Details Date Type Department Care Team Description 02/03/2003 PN Conversion Only [place] [address] [place] [address] (Wo rk) Social History Tobacco Use Types Packs/Day Years Used Date Smoking Tobacco: Never Assessed Sex Assigned at Date Recorded Not on file documented as of this encounter Plan of Treatment Not on filedocumented as of this encounter Procedures Procedure Name Priority Date/Time Associated Diagnosis Comme nts INR/PROTIME Routine 02/03/2003 10:10 AM Results for this DATA VIRTUALIZATION CONSULTANT procedure are i n the results section . documented in this encounter Results (ABNORMAL) INR/Protime (02/03/2003 10:10 AM DATA VIRTUALIZATION CONSULTANT) [facility] Method Time Signature Prothrombin 29.8 (H) 8.9 - 11.1 HP CONVERSION Time sec INR 2.8 No normal HP CONVERSION range Comment: Recommendations [...] / / Volume Laterality 02/03/2003 10:10 AM DATA VIRTUALIZATION CONSULTANT Daniel Henley MD LAB_1 Performing Organization Address City/State/ZIP Code Phon e Number HP CONVERSION documented in this encounter Visit Diagnoses Not on filedocumented in this encounter Care Teams Professor Of Law Relationship Specialty Start Date End Date Pauline Jimenez PA-C PCP - General 06/17/10 12/12/[address] [place] [address] documented as of this encounter
--- OUTSIDE RECORDS SUMMARY | 2022-02-26 10:56 | XMS_ITS | Encounter Summary ---
:1960 Author Organization [facility] Address [address], [place] [address] Care Team Providers Name Role Phone Pauline Jimenez PA-C Primary Care Provider Encounter Details Date Type Department Care Team Description 03/17/1989 PN Conversion Only SUPERVISOR BIT AND SHANK DEPARTMENT [address] [place] [address] Social History Tobacco Use Types Packs/Day Years Used Date Smoking Tobacco: Never Assessed Sex Assigned at Date Recorded Not on file documented as of this encounter Plan of Treatment Not on filedocumented as of this encounter Visit Diagnoses Not on filedocumented in this encounter Care Teams Online Editor Relationship Specialty Start Date End Date Pauline Jimenez PA-C PCP - General 06/17/10 12/12/14 [address] [place] [address] documented as of this encounter
[2022-02-26 17:35] LABS: Chloride* 102 mmol/L (96-114); Potassium* 4.7 mmol/L (3.6-5.1); Sodium* 140 mmol/L (135-149)
[2022-02-26 17:38] LABS: Blood Urea Nitrogen* 19 mg/dL (7-30); Carbon Dioxide* 27 mmol/L (20-32); Cholesterol* 136 mg/dL (90-199); Estimated Glomerular Filt Rate 64 ml/min; Glucose* 108 mg/dL (60-115)
[2022-02-26 17:39] LABS: Calcium* 10.3 mg/dL (8.4-10.6); HDL Cholesterol* 39 mg/dL (>=50); LDL Cholesterol Calculated 66 mg/dL (<100); Triglycerides* 156 mg/dL (40-149)
== END 2022-02-26 10:22 | disposition home or self-care (01) ==
PROVIDERS: PCP Family Medicine; Visit Provider Family Medicine
DX: Z01.419 Encounter for gynecological examination (general) (routine) without abnormal findings (principal); I10 Essential (primary) hypertension; E78.5 Hyperlipidemia, unspecified
CPT/HCPCS: 80048; 80061

== ENCOUNTER 2022-06-03 09:58 | Outpatient (CLI) | payer MEDICARE, MEDICAID, SELFPAY ==
--- NOTE | 2022-06-03 10:15 | CRLHL7_ITS ---
For Patients: As a result of the Century Cures Act, medical imaging exams and procedure reports are released immediately into your electronic medical record. You may view this report before your referring provider. If you have questions, please contact your health care provider. BILATERAL SCREENING MAMMOGRAM WITH COMPUTER-AIDED DETECTION TECHNIQUE: CC and MLO views were obtained. These mammographic images have been obtained using full-field digital technique. These mammographic images were interpreted with the benefit of computer-aided detection. COMPARISON FILM: 06/01/21, 05/11/20, 04/16/19. FINDINGS: The breasts are almost entirely fatty IMPRESSION: There is no radiographic evidence for malignancy. ASSESSMENT: BI-RADS Category 1: Negative RECOMMENDATION: Routine screening mammogram in 1 year. A lay language report of this examination will be provided to the patient. Leighton Gill M.D. Diagnostic Radiologist [email or web address] [email or web address]/luna Transcribed: 1:35 p.mAngelica carrasco/Dictated by: Leighton Gill MD @ 06/03/2022 11:48:00 AM (Electronically Signed)
== END 2022-06-03 09:59 | disposition home or self-care (01) ==
PROVIDERS: PCP Family Medicine; Visit Provider Family Medicine
DX: Z12.31 Encounter for screening mammogram for malignant neoplasm of breast (principal)
CPT/HCPCS: 77067

== ENCOUNTER 2022-06-25 09:09 | Outpatient (CLI) | payer MEDICARE, MEDICAID, SELFPAY ==
--- NOTE | 2022-06-25 09:45 | CRLHL7_ITS ---
For Patients: As a result of the Century Cures Act, medical imaging exams and procedure reports are released immediately into your electronic medical record. You may view this report before your referring provider. If you have questions, please contact your health care provider. INDICATION: CHRONIC HEP B COMPARISON: none TECHNIQUE: Real time cash scale imaging and color Doppler analysis was performed of the right upper quadrant. FINDINGS: The patient`s liver is of normal size and has diffusely coarsened and increased echogenicity, as before. There is a normal appearance of the hepatic IVC and proximal abdominal aorta. There is no evidence of ascites. The gallbladder is absent. The common bile duct is of normal size and measures 4 mm in diameter at the level of the nikolai hepatis. The pancreas appears normal. There is no evidence of a stone or hydronephrosis within the right kidney. The right kidney measures 7.8 cm in length. IMPRESSION: Similar morphology of the liver with diffusely coarsened and echogenic echotexture without intrahepatic mass or ascites. Dictated by Leighton Gill MD @ 06/25/2022 10:48:46 AM (Electronically Signed)
[2022-06-25 11:39] LABS: Albumin* 4.9 g/dL (3.3-5.0)
[2022-06-25 11:41] LABS: Estimated Glomerular Filt Rate 64 ml/min; Total Protein* 9.1 g/dL (6.0-8.3)
[2022-06-25 11:42] LABS: Alanine Aminotransferase* 126 U/L (4-35); Alkaline Phosphatase* 74 U/L (40-150); Aspartate Amino Transferase* 113 U/L (12-35); Bilirubin Direct* 0.3 mg/dL (0.0-0.5); Bilirubin Total* 0.8 mg/dL (0.1-1.5)
[2022-06-25 12:00] LABS: Hepatitis B Surface Antigen* Positive (Negative)
[2022-06-25 12:15] LABS: Hepatitis B Surface Antibody* Negative (Negative)
[2022-06-26 16:42] LABS: Alpha Fetoprotein Tumor Marker 4 ng/mL (0-9)
== END 2022-06-25 09:10 | disposition home or self-care (01) ==
LOC: US 09:10
PROVIDERS: PCP Family Medicine; Visit Provider Internal Medicine Gastroenterology
DX: B18.1 Chronic viral hepatitis B without delta-agent (principal)
CPT/HCPCS: 36415; 76705; 80076; 82105; 82565; 86706; 87340; 87517

== ENCOUNTER 2022-11-26 08:16 | Outpatient (CLI) | payer MEDICARE, MEDICAID, SELFPAY ==
--- NOTE | 2022-11-26 08:45 | CRLHL7_ITS ---
For Patients: As a result of the Century Cures Act, medical imaging exams and procedure reports are released immediately into your electronic medical record. You may view this report before your referring provider. If you have questions, please contact your health care provider. INDICATION: Chronic hepatitis-B findings are similar to the prior exam. COMPARISON: 06/25/2022 TECHNIQUE: Real time cash scale imaging and color Doppler analysis was performed of the right upper quadrant. FINDINGS: The liver is diffusely echogenic. The liver measures 15.8 cm. No intrahepatic mass. There is a normal appearance of the hepatic IVC and proximal abdominal aorta. There is no evidence of ascites. The gallbladder is absent. The common bile duct is of normal size and measures 3 mm in diameter at the level of the nikolai hepatis. The visualized pancreas appears normal. There is no evidence of a stone or hydronephrosis within the right kidney. The right kidney measures 8.3 cm in length. IMPRESSION: Diffuse hepatic steatosis/chronic hepatitis, unchanged from the prior study. No ascites or intrahepatic mass. Dictated by Leighton Gill MD @ 11/26/2022 11:49:00 AM (Electronically Signed)
[2022-11-26 10:15] LABS: Albumin* 4.8 g/dL (3.3-5.0)
[2022-11-26 10:18] LABS: Bilirubin Direct* 0.1 mg/dL (0.0-0.5); Bilirubin Total* 0.5 mg/dL (0.1-1.5); Creatinine* 1.1 mg/dL (0.5-1.5); Estimated Glomerular Filt Rate 57 ml/min; Total Protein* 8.6 g/dL (6.0-8.3)
[2022-11-26 10:19] LABS: Alanine Aminotransferase* 138 U/L (4-35); Alkaline Phosphatase* 73 U/L (40-150); Aspartate Amino Transferase* 107 U/L (12-35)
[2022-11-27 20:47] LABS: Alpha Fetoprotein Tumor Marker 3 ng/mL (0-9)
== END 2022-11-26 08:17 | disposition home or self-care (01) ==
LOC: US 08:17
PROVIDERS: PCP Family Medicine; Visit Provider Internal Medicine Gastroenterology
DX: B18.1 Chronic viral hepatitis B without delta-agent (principal); K76.0 Fatty (change of) liver, not elsewhere classified
CPT/HCPCS: 36415; 76705; 80076; 82105; 82565; 83516; 87517

== ENCOUNTER 2022-12-30 13:23 | Outpatient (CLI) | payer MEDICARE, MEDICAID, SELFPAY | END 2022-12-30 13:24 | disposition home or self-care (01) | LOC: LONREF 13:24 | PROVIDERS: PCP Family Medicine; Visit Provider Family Medicine | DX: E78.5 Hyperlipidemia, unspecified (principal); I10 Essential (primary) hypertension | CPT/HCPCS: 80061 ==

== ENCOUNTER 2023-04-11 10:34 | Inpatient (IN) | payer MEDICARE, MEDICAID, SELFPAY ==
[2023-04-11] VITALS (67 sets, daily range): BP systolic 71–108; BP diastolic 44–73; PULSE 58–93; RESP 18–24; TEMP 36.5–38; O2SAT 86–98; BMI 21.3; BMI 22.8
--- NOTE | 2023-04-11 11:13 | CRLHL7_ITS ---
For Patients: As a result of the Century Cures Act, medical imaging exams and procedure reports are released immediately into your electronic medical record. You may view this report before your referring provider. If you have questions, please contact your health care provider. INDICATION: Abdominal pain COMPARISON: No prior CTs available for comparison TECHNIQUE: CT examination of the abdomen and pelvis was performed following the uneventful intravenous administration of 58 cc of Isovue 370. Thin section axial images were obtained from the lung bases through the pubic symphysis. Oral contrast was not administered. Please note that all CT scans at this facility use dose modulation, iterative reconstruction, and/or weight-based dosing when appropriate to reduce radiation dose to as low as reasonably achievable. FINDINGS: LUNG BASES: The lung bases as visualized appear normal.The heart size is normal at the lung bases. LIVER/BILIARY SYSTEM:Enlarged liver. Heterogeneous low density pattern which can be seen in fatty infiltration, chronic hepatitis and early cirrhosis amongst other possibilities. No focal mass. No intra or extrahepatic biliary ductal dilation. The gallbladder is absent ADRENALS: Normal KIDNEYS, URETERS and BLADDER:Normal size kidneys. The bladder is distended. No hydronephrosis or hydroureter. There is mild thickening of the urothelium of the renal pelves bilaterally and proximal ureter especially on the right. This can be seen in urinary tract infection. Correlate with urinalysis. The bladder is distended but otherwise unremarkable. SPLEEN:Normal appearance. PANCREAS: Appears normal. RETROPERITONEUM and MESENTERY: There is no mass, adenopathy or aortic aneurysm. GASTROINTESTINAL SYSTEM: There is no evidence of diverticulitis, colitis, mechanical obstruction, or appendicitis. The small bowel as visualized appears normal.Diverticulosis PELVIS: No mass, adenopathy or free fluid. OSSEOUS STRUCTURES and ABDOMINAL WALL: There is an age-appropriate appearance of the osseous structures.No significant abdominal wall defect. OTHER: No free fluid or free air. IMPRESSION: 1. Mildly enlarged heterogeneous fatty infiltrated liver. No focal mass or biliary ductal dilation. Surgically absent gallbladder. 2. Though mild thickening and abnormal enhancement of the proximal ureteric and renal pelvic urothelium which can be seen in current or prior infection or intermittent obstruction. No current evidence of obstruction. Correlate with urinalysis. 3. Diverticulosis. Please note that all CT scans at this facility use dose modulation, iterative reconstruction, and/or weight-based dosing when appropriate to reduce radiation dose to as low as reasonably achievable. Dictated by Arturo Balderrama MD @ 04/11/2023 1:08:12 PM (Electronically Signed)
--- NOTE | 2023-04-11 11:16 | ED_ITS ---
HPI - General Adult General Chief complaint: Abdominal Pain Stated complaint: Abdominal pain Time Seen by Provider: 04/11/23 11:06 History of Present Illness HPI narrative: This 63-year-old female comes in reporting abdominal pain since yesterday. She has had some dysuria symptoms with sense of incomplete emptying. The patient is deaf and requires sign language interpretation. She is present with her mother. She does report abdominal pain throughout her abdomen. She states that she has had some constipation also. She does not report any fevers and has not had any vomiting. She arrives with a systolic blood pressure at 82. At the time of my visit her blood pressure had a systolic value in the mid 90s. Her heart rate is in normal range. Patient does not report lightheadedness. Related Data Previous Rx's Medication Instructions Recorded mupirocin 2 % topical ointment 1 applic topical TID #22 grams 11/03/22 amlodipine 5 mg tablet 5 mg PO QDAY #90 tabs 12/30/22 atorvastatin 20 mg tablet 20 mg PO QDAY #90 tabs 12/30/22 chlorthalidone 25 mg tablet See Rx Instructions .Route 12/30/22 .COMPLEX #90 tabs fluoxetine 20 mg capsule 20 mg PO QDAY #90 caps 12/30/22 lisinopril 40 mg tablet 40 mg PO QDAY #90 tabs 12/30/22 metformin 500 mg tablet 1,000 mg (2 x 500 mg) PO QDAY #180 12/30/22 tabs [id number]-[id number]-[id number] 3.5 See Rx Instructions .Route 12/30/22 mg-10,000 unit/mL-1 % ear .COMPLEX #10 mL drops,susp triamcinolone acetonide 0.1 % 1 applic topical QDAY #30 grams 12/30/22 topical cream Allergies Allergy/AdvReac Type Severity Reaction Status Date / Time hydrocodone Allergy Intermediate rash and Verified 04/11/23 12:52 itching Review of Systems Status of ROS: Reports: 10 or more systems reviewed and unremarkable except as noted in History and below Narrative: Constitutional: No fevers, no weight gain or loss. Eyes: No discharge. No vision changes. HENT: No congestion, no sore throat, no ear pain. Cardiovascular: No chest pain, no palpitations. Respiratory: No shortness of breath, no wheezes, no cough. Gastrointestinal: Abdominal pain as described above. Genitourinary: Dysuria symptoms as described above. Musculoskeletal: Normal range of motion. Skin: No rashes, no pruritis. Neurological: No dizziness, weakness, sensory change, speech change. Endo/Heme/Allergies: No bruising or bleeding. No polydipsia. All other systems reviewed and are negative. [facility] Medical History Acute pancreatitis (02/14/11) ?K85.90 - Acute pancreatitis without necrosis or infection, unspecified (ICD- 10) Surgical History History of bilateral breast reduction surgery ?Z98.890 - Other specified postprocedural states (ICD-10) Status post cholecystectomy ?Z90.49 - Acquired absence of other specified parts of digestive tract (ICD- 10) History of hysterectomy (03/07/10) ?Z90.710 - Acquired absence of both cervix and uterus (ICD-10) History of abdominoplasty (03/07/10) ?Z98.890 - Other specified postprocedural states (ICD-10) Family History Sister Breast cancer Other Colon cancer Social History (Updated 12/30/22 @ 14:13 by Berta Hough ~ [facility], [facility]) What is your current living situation?: I presently have a place to live Problems where you live: no known problems In the past 12 months, utilities in danger of being shut off: declined to answer In past 12 months, lack of transportation kept you from medical appts, meetings, work, or getting things needed for daily living: declined to answer In the past 12 mos, have been you worried that your food would run out before you had money to buy more?: declined to answer In the past 12 mos, the food you bought just didn't last and you didn't have money to buy more?: declined to answer Smoking Status: Never smoker Do you use any of these nicotine containing products: None How often do you have a drink containing alcohol: never How often do you have six or more drinks on one occasion: Never AUDIT-C Alcohol total score: 0 Non-prescribed substance use: denies use How often does anyone, including family, friends and others, physically hurt you : decline to answer How often does anyone, including family, friends and others, insult or talk down to you: decline to answer How often does anyone, including family, friends and others, threaten you with harm: decline to answer How often does anyone, including family, friends and others, scream or curse at you: decline to answer Little interest or pleasure in doing things: not at all Feeling down, depressed, or hopeless: not at all Exam Narrative: Exam Narrative: Constitutional: Well-developed, well-nourished, no acute distress. HEENT: Normocephalic, atraumatic. Neck: Normal range of motion. Nontender. Supple. Heart: Regular. No murmurs. Normal rate. Intact distal pulses. Lungs: Clear to auscultation. No chest discomfort. No wheezes, rhonchi, or rales. Abdomen: Normal bowel sounds. Diffuse pain through the abdomen with distension. Rebound tenderness is present. Genitalia: Deferred. Back: No midline tenderness. Normal range of motion. Extremities: Normal range of motion. No injury. Skin: Intact. No rash. Warm. No erythema or pallor. Neurologic: No altered sensation. No weakness. Alert and oriented. Psychiatric: No suicidality. No anxiety or depression. No insomnia. Nursing notes and vitals signs are reviewed. Const: Vital Signs, click to edit/add: Vital Signs - 24 hr 04/11/23 10:49 04/11/23 11:40 04/11/23 11:41 Temperature 98.1 F Pulse Rate 71 74 Pulse Rate [Pulse Oximeter] 66 Respiratory Rate 18 Blood Pressure 89/55 L Blood Pressure [Ri ght Upper Arm] 82/56 L Pulse Oximetry 97 98 97 Oxygen Delivery Me thod Room Air Oxygen Flow Rate 04/11/23 11:45 04/11/23 12:00 04/11/23 12:02 Temperature Pulse Rate 73 93 76 Pulse Rate [Pulse Oximeter] Respiratory Rate Blood Pressure 84/59 L Blood Pressure [Ri ght Upper Arm] Pulse Oximetry 97 90 97 Oxygen Delivery Me thod Oxygen Flow Rate 04/11/23 12:03 04/11/23 12:15 04/11/23 12:15 Temperature 98.5 F Pulse Rate 91 79 Pulse Rate [Pulse Oximeter] Respiratory Rate Blood Pressure Blood Pressure [Ri t Upper Arm] Pulse Oximetry 97 97 Oxygen Delivery Me thod Oxygen Flow Rate 04/11/23 12:46 04/11/23 12:47 04/11/23 13:00 Temperature Pulse Rate 87 73 70 Pulse Rate [Pulse Oximeter] Respiratory Rate Blood Pressure 82/54 L Blood Pressure [Ri ght Upper Arm] Pulse Oximetry 93 94 93 Oxygen Delivery Me thod Oxygen Flow Rate 04/11/23 13:02 04/11/23 13:15 04/11/23 13:17 Temperature Pulse Rate 70 73 71 Pulse Rate [Pulse Oximeter] Respiratory Rate Blood Pressure 85/56 L 87/59 L Blood Pressure [Ri ght Upper Arm] Pulse Oximetry 93 92 92 Oxygen Delivery Me thod Oxygen Flow Rate 04/11/23 13:30 04/11/23 13:32 04/11/23 13:45 Temperature Pulse Rate 77 73 70 Pulse Rate [Pulse Oximeter] Respiratory Rate Blood Pressure 85/56 L Blood Pressure [Ri ght Upper Arm] Pulse Oximetry 91 90 92 Oxygen Delivery Me thod Oxygen Flow Rate 04/11/23 13:47 04/11/23 14:00 04/11/23 14:02 Temperature Pulse Rate 72 72 71 Pulse Rate [Pulse Oximeter] Respiratory Rate Blood Pressure 82/53 L 84/52 L Blood Pressure [Ri t Upper Arm] Pulse Oximetry 92 91 91 Oxygen Delivery Me thod Oxygen Flow Rate 04/11/23 14:03 04/11/23 14:15 04/11/23 14:25 Temperature 98.2 F Pulse Rate 72 75 Pulse Rate [Pulse Oximeter] Respiratory Rate 20 Blood Pressure Blood Pressure [Ri ght Upper Arm] Pulse Oximetry 91 93 Oxygen Delivery Me thod Oxygen Flow Rate 04/11/23 14:26 04/11/23 14:29 04/11/23 14:30 Temperature Pulse Rate 76 63 75 Pulse Rate [Pulse Oximeter] Respiratory Rate Blood Pressure 76/52 L 96/54 L Blood Pressure [Ri ght Upper Arm] Pulse Oximetry 93 93 93 Oxygen Delivery Me thod Oxygen Flow Rate 04/11/23 14:31 04/11/23 14:32 04/11/23 14:45 Temperature Pulse Rate 65 68 72 Pulse Rate [Pulse Oximeter] Respiratory Rate Blood Pressure 83/53 L Blood Pressure [Ri ght Upper Arm] Pulse Oximetry 93 93 92 Oxygen Delivery Me thod Oxygen Flow Rate 04/11/23 14:47 04/11/23 15:00 04/11/23 15:02 Temperature Pulse Rate 68 66 67 Pulse Rate [Pulse Oximeter] Respiratory Rate Blood Pressure 89/59 L 86/63 L Blood Pressure [Ri ght Upper Arm] Pulse Oximetry 93 93 91 Oxygen Delivery Me thod Oxygen Flow Rate 04/11/23 15:15 04/11/23 15:17 04/11/23 15:18 Temperature Pulse Rate 68 73 68 Pulse Rate [Pulse Oximeter] Respiratory Rate Blood Pressure 85/64 L Blood Pressure [Ri t Upper Arm] Pulse Oximetry 90 89 Oxygen Delivery Me thod Oxygen Flow Rate 04/11/23 15:30 Temperature Pulse Rate 61 Pulse Rate [Pulse Oximeter] Respiratory Rate Blood Pressure Blood Pressure [Ri t Upper Arm] Pulse Oximetry 93 Oxygen Delivery Me thod Nasal Cannula Oxygen Flow Rate 3 Course Vital Signs Vital signs: Initial Vital Signs Temperature 98.1 F 04/11/23 10:49 Temperature Source Temporal Artery Scan 04/11/23 10:49 Pulse Rate 66 04/11/23 10:49 Respiratory Rate 18 04/11/23 10:49 Blood Pressure 82/56 L 04/11/23 10:49 Blood Pressure Mean 64 L 04/11/23 10:49 Blood Pressure Position Supine 04/11/23 10:49 Pulse Oximetry 97 04/11/23 10:49 Oxygen Delivery Method Room Air 04/11/23 10:49 Vital Signs Temperature 98.1 F 04/11/23 10:49 Pulse Rate 66 04/11/23 10:49 Respiratory Rate 18 04/11/23 10:49 Blood Pressure 82/56 L 04/11/23 10:49 Pulse Oximetry 97 04/11/23 10:49 Oxygen Delivery Method Room Air 04/11/23 10:49 Temperature 98.2 F 04/11/23 14:25 Pulse Rate 61 04/11/23 15:30 Respiratory Rate 20 04/11/23 14:25 Blood Pressure 85/64 L 04/11/23 15:17 Pulse Oximetry 93 04/11/23 15:30 Oxygen Delivery Method Nasal Cannula 04/11/23 15:30 Oxygen Flow Rate 3 04/11/23 15:30 Medications Administered Medications: Discontinued Medications Generic Name Dose Route Start Last Admin Trade Name Freq PRN Reason Stop Dose Admin Acetaminophen 1,000 mg 04/11/23 14:59 04/11/23 15:03 Acetaminophen 500 Mg Tablet PO 04/11/23 15:00 1,000 mg ONCE ONE Administration Sodium Chloride 1,000 mls @ 1,000 mls/hr 04/11/23 11:15 04/11/23 12:20 0.9 % Sodium Chloride 1000 Ml IV 04/11/23 12:14 Infused .Q1H MATT Infusion Sodium Chloride 1,000 mls @ 1,000 mls/hr 04/11/23 12:30 04/11/23 13:30 0.9 % Sodium Chloride 1000 Ml IV 04/11/23 13:29 Infused .Q1H MATT Infusion Ceftriaxone Sodium 1 gm/ 100 mls @ 200 mls/hr 04/11/23 13:38 04/11/23 14:58 Sodium Chloride IVPB 04/11/23 13:39 Infused ONCE ONE Infusion Ketorolac Tromethamine 15 mg 04/11/23 12:11 04/11/23 12:17 Ketorolac 15 Mg/Ml Inj IVP 04/11/23 12:12 15 mg ONCE ONE Administration Ondansetron HCl 4 mg 04/11/23 12:11 04/11/23 12:17 Ondansetron 2 Mg/Ml Inj IVP 04/11/23 12:12 4 mg ONCE ONE Administration Medical Decision Making MDM Narrative Medical decision making narrative: This 63-year-old female comes in with abdominal pain as described above. She did seem to have some rebound tenderness. An IV was established and labs are acquired. CT imaging also of the abdomen and pelvis is obtained. Additionally urinalysis is acquired and does show evidence of obvious urinary tract infection. The patient does have white blood cell count at 15, sodium 126, BUN 31, creatinine 2.0. Her lactate returns normal at 1.3. This patient arrives with systolic blood pressure in the 90s and this decreased into the 80s despite having a L of fluids. A 2 L was given and blood pressure continues to remain soft. Previous blood pressures and recent vision at were a bit above 100 for systolic value so the patient is typically low. She is not showing obvious signs of sepsis. She does not have a fever. After blood cultures are acquired the patient did receive a g of Rocephin. I did speak with Dr. Jo, hospitalist, who agrees to her admission for further evaluation and treatment. Lab Data Labs: Lab Results 04/11/23 04/11/23 04/11/23 Range/Units 11:18 11:35 14:14 WBC 15.44 H (4.50-11.00) K/uL RBC 4.18 (4.00-5.20) m/uL Hgb 11.4 L (12.0-16.0) gm/dL Hct 35.5 (33.0-51.0) % MCV 85 (80-100) fL MCH 27 (26-34) pg MCHC 32 (32-36) gm/dL RDW Coeff of Patsy 14.6 (11.5-15.5) % Plt Count 263 (140-440) K/uL Neut % (Auto) 68.3 (42.0-72.0) % Lymph % (Auto) 20.5 (20-44) % [place] % (Auto) 10.6 (0.0-11.0) % Eos % (Auto) 0.1 (0.0-7.0) % Baso % (Auto) 0.3 (0.0-3.0) % Neut # (Auto) 10.50 H (1.7-7.0) K/uL Lymph # (Auto) 3.20 H (0.90-2.90) K/uL [place] # (Auto) 1.60 H (0.00-0.90) K/UL Eos # (Auto) 0.00 (0.00-0.50) K/uL Baso # (Auto) 0.00 (0.00-0.30) K/uL Abs Immat Gran (auto) 0.00 (0.00-0.30) K/uL Imm/Tot Granulo (auto) 0.2 % Sodium 126 L (135-149) mmol/L Potassium 3.8 (3.6-5.1) mmol/L Chloride 90 L (96-114) mmol/L Carbon Dioxide 20 (20-32) mmol/L Anion Gap 16 H (7-15) mEq/L BUN 31 H (7-30) mg/dL Creatinine 2.0 H (0.5-1.5) mg/dL Estimated Creat Clear 24.13 Estimated GFR 28 ml/min Glucose 138 H (60-115) mg/dL Lactate 1.3 (0.5-1.9) mmol/L Calcium 9.5 (8.4-10.6) mg/dL Total Bilirubin 1.2 (0.1-1.5) mg/dL Direct Bilirubin 0.4 (0.0-0.5) mg/dL AST 64 H (12-35) U/L ALT 87 H (4-35) U/L Alkaline Phosphatase 74 (40-150) U/L Total Protein 8.4 H (6.0-8.3) g/dL Albumin 4.8 (3.3-5.0) g/dL Urine Color Yellow (Yellow) Urine Appearance Cloudy A (Clear) Urine pH 6.0 (5.0-8.5) Ur Specific [place] 1.020 (1.000-1.030) Urine Protein 1+ A (Negative) Urine Glucose (UA) Negative (Negative) Urine Ketones Negative (Negative) Urine Blood 2+ A (Negative) Urine Nitrite Negative (Negative) Urine Bilirubin Negative (Negative) Urine Urobilinogen 0.2 (0.2-1.0) Ur Leukocyte Esterase 1+ A (Negative) Urine RBC 10-25 A (0-2) Urine WBC >100 A (0-5) Ur Squamous Epith Cells Few (None-Few) Urine Bacteria Moderate A (None) Lab Acknowledgement 04/11/23 Range/Units 15:27 WBC (4.50-11.00) K/uL RBC (4.00-5.20) m/uL Hgb (12.0-16.0) gm/dL Hct (33.0-51.0) % MCV (80-100) fL MCH (26-34) pg MCHC (32-36) gm/dL RDW Coeff of Patsy (11.5-15.5) % Plt Count (140-440) K/uL Neut % (Auto) (42.0-72.0) % Lymph % (Auto) (20-44) % [place] % (Auto) (0.0-11.0) % Eos % (Auto) (0.0-7.0) % Baso % (Auto) (0.0-3.0) % Neut # (Auto) (1.7-7.0) K/uL Lymph # (Auto) (0.90-2.90) K/uL [place] # (Auto) (0.00-0.90) K/UL Eos # (Auto) (0.00-0.50) K/uL Baso # (Auto) (0.00-0.30) K/uL Abs Immat Gran (auto) (0.00-0.30) K/uL Imm/Tot Granulo (auto) % Sodium (135-149) mmol/L Potassium (3.6-5.1) mmol/L Chloride (96-114) mmol/L Carbon Dioxide (20-32) mmol/L Anion Gap (7-15) mEq/L BUN (7-30) mg/dL Creatinine (0.5-1.5) mg/dL Estimated Creat Clear Estimated GFR ml/min Glucose (60-115) mg/dL Lactate (0.5-1.9) mmol/L Calcium (8.4-10.6) mg/dL Total Bilirubin (0.1-1.5) mg/dL Direct Bilirubin (0.0-0.5) mg/dL AST (12-35) U/L ALT (4-35) U/L Alkaline Phosphatase (40-150) U/L Total Protein (6.0-8.3) g/dL Albumin (3.3-5.0) g/dL Urine Color (Yellow) Urine Appearance (Clear) Urine pH (5.0-8.5) Ur Specific [place] (1.000-1.030) Urine Protein (Negative) Urine Glucose (UA) (Negative) Urine Ketones (Negative) Urine Blood (Negative) Urine Nitrite (Negative) Urine Bilirubin (Negative) Urine Urobilinogen (0.2-1.0) Ur Leukocyte Esterase (Negative) Urine RBC (0-2) Urine WBC (0-5) Ur Squamous Epith Cells (None-Few) Urine Bacteria (None) Lab Acknowledgement Test Added Imaging Data CT scan - abdomen: Radiologist's impression: 1. Mildly enlarged heterogeneous fatty infiltrated liver. No focal mass or biliary ductal dilation. Surgically absent gallbladder. 2. Though mild thickening and abnormal enhancement of the proximal ureteric and renal pelvic urothelium which can be seen in current or prior infection or intermittent obstruction. No current evidence of obstruction. Correlate with urinalysis. 3. Diverticulosis. Discharge Plan Discharge Clinical Impression: UTI (urinary tract infection), Hypotension Patient Disposition: Admitted As Inpatient Condition: Unchanged Prescriptions: No Action metformin 500 mg tablet 1,000 mg PO QDAY Qty: 180 3RF amlodipine 5 mg tablet 5 mg PO QDAY Qty: 90 3RF atorvastatin 20 mg tablet 20 mg PO QDAY Qty: 90 3RF chlorthalidone 25 mg tablet See Rx Instructions .ROUTE .COMPLEX Qty: 90 3RF Dose Instruction: TAKE 1 TABLET BY MOUTH DAILY Rx Instructions: TAKE 1 TABLET BY MOUTH DAILY fluoxetine 20 mg capsule 20 mg PO QDAY Qty: 90 3RF lisinopril 40 mg tablet 40 mg PO QDAY Qty: 90 3RF triamcinolone acetonide 0.1 % cream 1 applic topical QDAY Qty: 30 5RF djczknub-kdksdrfpt-QL 3.5-10,000-1 mg/mL-unit/mL-% drops,suspension See Rx Instructions .ROUTE .COMPLEX Qty: 10 5RF Dose Instruction: SHAKE LIQUID AND INSTILL 3 DROPS IN BOTH EARS DAILY Rx Instructions: SHAKE LIQUID AND INSTILL 3 DROPS IN BOTH EARS DAILY mupirocin 2 % ointment 1 applic topical TID Qty: 22 3RF Follow Up/Referrals: Sumit Walter MD [Primary Care Provider] -
[2023-04-11] MEDS: 0.9 % SODIUM CHLORIDE 1000 ml 1,000 ML IV ×2 (11:40→12:23)
[2023-04-11 11:43] LABS: Basophils Percent Auto 0.3 % (0.0-3.0); Eosinophils Percent Auto 0.1 % (0.0-7.0); Hematocrit 35.5 % (33.0-51.0); Hemoglobin* 11.4 gm/dL (12.0-16.0); Immature Granulocytes Pct Auto 0.2 %; Lymphocytes Percent Auto 20.5 % (20-44); Mean Corpuscular HGB Conc 32 gm/dL (32-36); Mean Corpuscular Hemoglobin 27 pg (26-34); Mean Corpuscular Volume 85 fL (80-100); Monocytes Percent Auto 10.6 % (0.0-11.0); Neutrophils Percent Auto 68.3 % (42.0-72.0); Platelet Count* 263 K/uL (140-440); RDW Coefficient of Variation % 14.6 % (11.5-15.5); Red Blood Count 4.18 m/uL (4.00-5.20); White Blood Count* 15.44 K/uL (4.50-11.00)
[2023-04-11 11:45] LABS: Slide Review Reflex No
[2023-04-11 11:59] LABS: Albumin* 4.8 g/dL (3.3-5.0)
[2023-04-11 12:00] LABS: Chloride* 90 mmol/L (96-114); Potassium* 3.8 mmol/L (3.6-5.1); Sodium* 126 mmol/L (135-149)
[2023-04-11 12:02] LABS: Alanine Aminotransferase* 87 U/L (4-35); Alkaline Phosphatase* 74 U/L (40-150); Aspartate Amino Transferase* 64 U/L (12-35); Bilirubin Direct* 0.4 mg/dL (0.0-0.5); Bilirubin Total* 1.2 mg/dL (0.1-1.5); Est. Creatinine Clearance* 24.13; Estimated Glomerular Filt Rate 28 ml/min; Total Protein* 8.4 g/dL (6.0-8.3)
[2023-04-11 12:03] LABS: Anion Gap 16 mEq/L (7-15); Blood Urea Nitrogen* 31 mg/dL (7-30); Calcium* 9.5 mg/dL (8.4-10.6); Carbon Dioxide* 20 mmol/L (20-32); Glucose* 138 mg/dL (60-115)
--- OUTSIDE RECORDS SUMMARY | 2023-04-11 12:04 | XMS_ITS | Continuity of Care Document ---
Author Name Unknown Organization [facility] Address [address] [address] [place] [address] Phone Care Team Providers Care Vp Product Name Role Phone Yahaira MONTGOMERY, Wood Unavailable Unavailable Allergies, Adverse Reactions, Alerts Substance Reaction Status Criticality No Known Allergies Active No Inform ation Medications Medication Instructions Dosage Effective Dates (start - stop) Status Comments Viread 300 mg tablet take 1 tablet by or al route every day with a meal 300 MG - Active amlodipine 5 mg tablet take 1 tablet by oral route every day 5 MG - Active chlorthalidone 25 mg tablet take 1 tablet by oral route every day 25 MG - Active fluoxetine 20 mg tablet take 1 tablet by oral route every day in the morning 20 MG - Active lisinopril 40 mg tablet take 1 tablet by oral route every day 40 MG - Active metformin 500 mg tablet take 1 tablet by oral route every day 500 MG - Active atorvastatin 20 mg tablet take 1 tablet by oral route every day 20 MG - Active fluoxetine 20 mg capsule take 1 capsule by oral route every day in the morning 20 MG - Active Procedures Procedure Date Offic/outpt E&m Estab Mod-hi 2 Routine Serum Collection Offic/outpt E&m Estab Mod-hi 2 Routine Serum Collection Routine Serum Collection Ag-immunoassay; Hep B Surface Alpha-fetoprotein; Serum Creatinine; Bld Hepatitis B Surface Antibody Hepatic Function Panel Offic/outpt E&m [facility] Mod-hi 2 20 Routine Serum Collection Alpha-fetoprotein; Serum Creatinine; Bld Hepatic Function Panel Bld Ct; Hg & Platelet Ct Autom Telephone E&M III 21-30 Min JAS Routine Serum Collection Alpha-fetoprotein; Serum Creatinine; Bld Hepatic Function Panel Offic/outpt E&m [facility] Mod-hi 2 19 Routine Serum Collection Bld Ct; Hg & Platelet Ct Autom 19 Alpha-fetoprotein; Serum Creatinine; Bld Hepatic Function Panel Offic/outpt E&m [facility] Mod-hi 2 18 Routine Serum Collection Hepatic Function Panel Ultrasound, Abdominal, Limited 18 FibroScan Offic/outpt E&m [facility] Mod-wy Routine Serum Collection Alpha-fetoprotein; Serum Hepatitis A Antibody; Igg & Ig [address]; Hg & Platelet Ct Autom 18 Subsqt Hosp-da E&m Minr Compl 1 Ercp; W/endo Retro Remov Stone 11 Ercp; W/sphincterotomy/papillo Inpt Init Hosp-da E&m Mod Severity 1 Advance Directives Directive Yes / No Effective Date File Name No Information Encounters Encounter Description Practice Location Reason(s) For Visit Diagnoses Date Provider Providers Copied on Encounter [facility] LAM[place]ر[place]ق[address] [address], [facility] [facility] [place], [place], [id number], [place] tel:[phone] [facility] No Information 3 Yahaira MONTGOMERY [facility]. [address] [place] [address], [id number], [place]. tel:[phone] Offic/outpt E&m Estab Mod-hi 2 [facility], [address] [address], [place], [id number], [place] tel:[phone] [facility] GI Symptoms or Concerns (chief complaint) Chronic hepatitis BNASH (nonalcoholic steatohepatit is) 3 Yahaira Wood. [address] [place] [address], [id number], [place]. tel:[phone] Referring Provider: Referral Self, USE FOR SELF REFERRALS. [facility], [address] [address], [place], [id number], [place] tel:[phone] [facility] No Information 3 Keshawn Morris. [address] [place] [address], [id number], [place]. tel:[phone] [facility], [address] [address], [place], [id number], [place] tel:[phone] [facility] Hepatitis B, chronic Apr-0 3 Yahaira Wood. [address] [place] [address], [id number], [place]. tel:[phone] Referring Provider: Referral Self, USE FOR SELF REFERRALS. [facility], [address] [address], [place], [id number], [place] tel:[phone] [facility] Hepatitis B, chronic Oct-0 2 Yahaira Wood. [facility] [address], [id number], [place]. tel:[phone] [facility], [address] [address], [place], [id number], [place] tel:[phone] [facility] Chronic viral hepatitis B without delta-agent Rizwan-0 2 Yahaira Wood. [address] [place] [address], [id number], [place]. tel:[phone] [facility], [address] [address], [place], [id number], [place] tel:[phone] [facility] Chronic viral hepatitis B without delta-agent Jun- 2 Yahaira Payneahim. [address] [facility], [address], [id number], [place]. tel:[phone] Referring Provider: Referral Self, USE FOR SELF REFERRALS. Offic/outpt E&m Estab Mod-hi 2 [facility], [address] [address], [place], [id number], [place] tel:[phone] [facility] GI Symptoms or Concerns (chief complaint) Hepatitis B, chronicNAFLD (nonalcoholic fatty liver disease) 2 Yahaira Payneahim. [address], [id number], [place]. tel:[phone] Referring Provider: Aleksandr Walter MD , [address] [place] [address], [address]. tel:[phone] [facility], [address] [address], [place], [id number], [place] tel:[phone] [facility] No Information 2 Yahaira Payneahim. [address] [facility], [address], [id number], [place]. tel:[phone] [facility], [address] [address], [place], [id number], [place] tel:[phone] [facility] Chronic viral hepatitis B without delta-agent 1 Yahaira Payneahim. [address] [facility], [address], [id number], [place]. tel:[phone] Referring Provider: Referral Self, USE FOR SELF REFERRALS. [facility], [address] [address], [place], [id number], [place] tel:[phone] [facility] No Information 1 Yahaira Wood. [address] [facility], [facility] [address], [place], [id number], [place]. tel:[phone] [facility], [address] [address], [place], [id number], [place] tel:[phone] [facility] Chronic hepatitis B 1 Yahaira Wood. [address] [place] [address], [place], [id number], [place]. tel:[phone] [facility], [address] [address], [place], [id number], [place] tel:[phone] [facility] Chronic viral hepatitis B without delta-agent 1 Yahaira Wood. [address], [id number], [place]. tel:[phone] Referring Provider: Aleksandr Walter MD , [address] [place] [address], [address]. tel:[phone] [facility], [address] [address], [place], [id number], [place] tel:[phone] [facility] No Information 1 Pallavi Segal. [address] [facility], [address], [id number], [place]. tel:[phone] Offic/outpt E&m Estab Mod-hi 2 [facility], [address] [address], [place], [id number], [place] tel:[phone] [facility] GI Symptoms or Concerns (chief complaint) GALAN (nonalcoholic steatohepatit is)Hepatitis B, chronic 0 Yahaira Wood. [address] [place] [address], [id number], [place]. tel:[phone] Referring Provider: Referral Self, USE FOR SELF REFERRALS. [facility], [address] [address], [place], [id number], [place] tel:[phone] [facility] No Information 0 Yahaira Payneahim. [address] [facility], [facility] [address], [place], [id number], [place]. tel:[phone] Referring Provider: Referral Self, USE FOR SELF REFERRALS. [facility], [address] [address], [place], [id number], [place] tel:[phone] [facility] Abnormal LFTs 0 Yahaira Payneahim. [address], [id number], [place]. tel:[phone] [facility], [address] [address], [place], [id number], [place] tel:[phone] [facility] Chronic viral hepatitis B without delta-agent 0 Yahaira Wood. [address], [id number], [place]. tel:[phone] Referring Provider: Referral Self, USE FOR SELF REFERRALS. Telephone E&M III 21-30 Min JAS [facility], [address] [address], [place], [address], [place] tel:[phone] [facility] GI Symptoms or Concerns (chief complaint) Hepatitis B, chronic 0 Yahaira Payneahim. [address] [facility], [address], [id number], [place]. tel:[phone] Referring Provider: Aleksandr Walter MD , [address] [place] [address], [address]. tel:[phone] [facility], [address] [address], [place], [id number], [place] tel:[phone] [facility] No Information 0 Nancy Dykes. [address] [facility], [facility] [address], [place], [id number], [place]. tel:[phone] [facility], [address] [address], [place], [id number], [place] tel:[phone] [facility] Chronic viral hepatitis B without delta-agent 9 Yahaira MONTGOMERY Wood. [address] [facility], [facility] [address], [place], [id number], [place]. tel:[phone] Referring Provider: Aleksandr Hanna, [address] [place], [address]. tel:[phone] [facility], [address] [address], [place], [address], [place] tel:[phone] [facility] Hepatitis B, chronic Nov-3 9 Yahaira Payneahim. [address] [facility], [facility] [address], [place], [address], [place]. tel:[phone] Offic/outpt E&m Estab Mod-hi 2 [facility], [address] [address], [place], [address], [place] tel:[phone] [facility] GI Symptoms or Concerns (chief complaint) Chronic viral hepatitis B without delta agent and without coma 9 Yahaira Payneahim. [address] [facility], [facility] [address], [address], [place]. tel:[phone] Referring Provider: Referral Self, USE FOR SELF REFERRALS. [facility], [address] [address], [place], [id number], [place] tel:[phone] [facility] Chronic viral hepatitis B without delta agent and without coma 9 Yahaira Kelly[place]. [address] [facility], [facility] [address], [place], [id number], [place]. tel:[phone] [facility], [address] [address], [place], [id number], [place] tel:[phone] [facility] Chronic viral hepatitis B without delta agent and without coma Nov- 8 Yahaira Wood. [address] [facility], [facility] [address], [place], [address], [place]. tel:[phone] Offic/outpt E&m Estab Mod-hi 2 [facility], [address] [address], [place], [address], [place] tel:[phone] [facility] GI Symptoms or Concerns (chief complaint) Chronic viral hepatitis B without delta agent and without comaEssential (primary) hypertension 8 Yahaira Wood. [address] [facility], [facility] [address], [place], [place], [id number], [place]. tel:[phone] Referring Provider: Referral Self, USE FOR SELF REFERRALS. [facility], [address] [address], [place], [address], [place] tel:[phone] [facility] Chronic viral hepatitis B without delta agent and without coma 8 Yahaira Wood. [address] [facility], [facility] [address], [place], [id number], [place]. tel:[phone] [facility], [address] [address], [place], [address], [place] tel:[phone] [facility] No Information 8 Yahaira Payneahim. [address] [facility], [facility] [address], [id number], [place]. tel:[phone] Referring Provider: Aleksandr Hanna, [address] [place] [address], [address]. tel:[phone] [facility], [address] [address], [place], [address], [place] tel:[phone] [facility] Chronic viral hepatitis B without delta-agent 8 Lexi Sesay. [address] [facility], [facility] [address], [place], [id number], [place]. tel:[phone] Referring Provider: Aleksandr Hanna, [address] [place] [address], [address]. tel:[phone] Offic/outpt E&m New Mod-hi [facility], [address] [address], [place], [id number], [place] tel:[phone] [facility] GI Symptoms or Concerns (chief complaint) Chronic viral hepatitis B without delta agent and without comaEssential (primary) hypertension 8 Yahaira Wood. [address] [place] [address], [id number], [place]. tel:[phone] Referring Provider: Aleksandr Hanna, [address] [place] [address], [address]. tel:[phone] Subsqt Hosp-da E&m Minr Compl [facility], [address] [address], [place], [address], [place] tel:[phone] [facility] No Information No Information Referring Provider: Aleksandr Hanna, [address] [place] [address], [address]. tel:[phone] [facility], [address] [address], [place], [id number], [place] tel:[phone] [facility] No Information No Information Referring Provider: Aleksandr Hanna, [address] [place] [address], [address]. tel:[phone] Init Hosp-da E&m Mod Severity [facility], [address] [address], [facility] [place], [id number], [place] tel:[phone] [facility] No Information Wallace Deshpande. [address] [place] [address], [id number], [place]. tel:[phone] Referring Provider: Aleksandr Hanna, [address] [place] [address], [address]. tel:[phone] Family History Family Member Type Diagnosis Age At Onset Son Problem (finding) Alive and well Father Problem (finding) Alive and well Brother Problem (finding) Alive and well Sister Problem (finding) malignant neop lasm of breast in first degree relative Mother Problem (finding) Alive and well Sister Problem (finding) Alive and well Immunizations Vaccine Date Status Comments Seasonal, quadrivalent, recombinant, injectable influenza vaccine, preservative free administered Note: [facility] bi-direct ional interface ; Source: Other Registry SARS-COV-2 (COVID-19) vaccin e, mRNA, spike protein, LNP, bivalent booster, preservative free, 30 mcg/0.3 mL dose, [place]-sucrose formulation administered Note: [facility] bi-d irectional interface ; Source: Other Registry SARS-COV-2 (COVID-19) vaccin e, mRNA, spike protein, LNP, preservative free, 30 mcg/0.3mL dose administered Note: [facility] bi-direct ional interface ; Source: Other Registry SARS-COV-2 (COVID-19) vaccin e, mRNA, spike protein, LNP, preservative free, 30 mcg/0.3mL dose administered Note: [facility] bi-direct ional interface ; Source: Other Registry Seasonal, quadrivalent, recombinant, injectable influenza vaccine, preservative free administered Note: [facility] bi-direct ional interface ; Source: Other Registry measles, mumps and rubella v irus vaccine administered Note: [facility] bi-direct ional interface ; Source: Other Registry Prevnar 13 administered Note: [facility] bi-d irectional interface ; Source: Other Registry meningococcal polysaccharide (groups A, C, Y and W-135) diphtheria toxoid conjugate vaccine (MCV4P) administered Note: [facility] bi-direct ional interface ; Source: Other Registry SARS-COV-2 (COVID-19) vaccin e, mRNA, spike protein, LNP, preservative free, 30 mcg/0.3mL dose administered Note: [facility] bi-direct ional interface ; Source: Other Registry SARS-COV-2 (COVID-19) vaccin e, mRNA, spike protein, LNP, preservative free, 30 mcg/0.3mL dose administered Note: [facility] bi-direct ional interface ; Source: Other Registry zoster vaccine recombinant administered N ote: [facility] bi-directional interface ; Source: Other Registry Seasonal, quadrivalent, recombinant, injectable influenza vaccine, preservative free administered Note: [facility] bi-direct ional interface ; Source: Other Registry zoster vaccine recombinant administered N ote: [facility] bi-directional interface ; Source: Other Registry tetanus toxoid, reduced diphtheria toxoid, and acellular pertussis vaccine, adsorbed administered Note: [facility] b i-directional interface ; Source: Other Registry Seasonal, quadrivalent, recombinant, injectable influenza vaccine, preservative free administered Note: [facility] bi-direct ional interface ; Source: Other Registry Afluria Qd administered Note: [facility] bi-directional interface ; Source: Other Registry Afluria Qd administered Note: [facility] bi-directional interface ; Source: Other Registry Fluzone Quad 6mo or older administered Note: [facility] bi-direct ional interface ; Source: Other Registry Afluria Qd administered Note: [facility] bi-directional interface ; Source: Other Registry Afluria Qd administered Note: [facility] bi-directional interface ; Source: Other Registry Fluzone Quad 6mo or older administered Note: [facility] bi-direct ional interface ; Source: Other Registry Influenza, injectable, quadrivalent, preservative free, 3 yrs or older administered Note: Invalid docume nted admin date was . ; Source: Other Provider Afluria Qd administered Note: [facility] bi-directional interface ; Source: Other Registry Afluria Qd administered Note: [facility] bi-directional interface ; Source: Other Registry Fluzone Quad 6mo or older administered Note: [facility] bi-direct ional interface ; Source: Other Registry Afluria Qd administered Note: M [facility] bi-directional interface ; Source: Other Registry Afluria Qd administered Note: M [facility] bi-directional interface ; Source: Other Registry Fluzone Quad 6mo or older administered Note: [facility] bi-direct ional interface ; Source: Other Registry Pneumovax 23 administered Note: [facility] bi-d irectional interface ; Source: Other Registry Influenza, seasonal, injecta ble, preservative free administered Note: [facility] bi-direct ional interface ; Source: Other Registry Influenza, seasonal, injecta ble, preservative free administered Note: [facility] bi-direct ional interface ; Source: Other Registry Influenza, seasonal, injecta ble, preservative free administered Note: [facility] bi-direct ional interface ; Source: Other Registry Havrix administered Note: [facility] bi-d irectional interface ; Source: Other Registry Influenza, seasonal, injecta ble, preservative free administered Note: [facility] bi-direct ional interface ; Source: Other Registry tetanus toxoid, reduced diphtheria toxoid, and acellular pertussis vaccine, adsorbed administered Note: [facility] b i-directional interface ; Source: Other Registry Influenza, seasonal, injecta ble, preservative free administered Note: [facility] bi-direct ional interface ; Source: Other Registry Novel [id number], all formulations administered Note: [facility] bi-direct ional interface ; Source: Other Registry tetanus toxoid, reduced diphtheria toxoid, and acellular pertussis vaccine, adsorbed administered Note: [facility] b i-directional interface ; Source: Other Registry influenza virus vaccine, unspecified formulation administered Note: [facility] bi-di rectional interface ; Source: Other Registry yellow fever vaccine administered Note: [facility] bi-directional interface ; Source: Other Registry tetanus and diphtheria toxoi ds, adsorbed, preservative free, for adult use (2 Lf of tetanus toxoid and 2 Lf of diphtheria toxoid) administered Note: [facility] bi-direct ional interface ; Source: Other Registry varicella virus vaccine administered Note : [facility] bi-directional interface ; Source: Other Registry measles, mumps and rubella v irus vaccine administered Note: [facility] bi-direct ional interface ; Source: Other Registry Haemophilus influenzae type b vaccine, PRP-T conjugate administered Note: [facility] bi-d irectional interface ; Source: Other Registry diphtheria, tetanus toxoids and pertussis vaccine administered Note: [facility] bi-direct ional interface ; Source: Other Registry Engerix-B administered Note: [facility] bi-d irectional interface ; Source: Other Registry Haemophilus influenzae type b vaccine, PRP-T conjugate administered Note: [facility] bi-d irectional interface ; Source: Other Registry diphtheria, tetanus toxoids and pertussis vaccine administered Note: [facility] bi-direct ional interface ; Source: Other Registry Haemophilus influenzae type b vaccine, PRP-T conjugate administered Note: [facility] bi-d irectional interface ; Source: Other Registry diphtheria, tetanus toxoids and pertussis vaccine administered Note: [facility] bi-direct ional interface ; Source: Other Registry Haemophilus influenzae type b vaccine, PRP-T conjugate administered Note: [facility] bi-d irectional interface ; Source: Other Registry Engerix-B administered Note: [facility] bi-d irectional interface ; Source: Other Registry diphtheria, tetanus toxoids and pertussis vaccine administered Note: [facility] bi-direct ional interface ; Source: Other Registry Engerix-B administered Note: [facility] bi-d irectional interface ; Source: Other Registry Payers Payer name Insurance type Covered republican ID Authoriza tion(s) No Information Social History Type Description Quantity Date Captured Comments Alcohol Use Details Unknown Caffeine Use Details Unknown Tobacco Use Status No Information Smoking Status No Information Sex Female Chief Complaint And Reason For Visit No Information Reason For Referral Reason For Referral No Information Plan Of Treatment Date Type Action Status Referral Ordered: DREAD-D Appointment date/timeframe: 12/03/2022 ordered Referral Ordered: Celiac: TTG IgA + Total IgA Appointment date/timeframe: 12/03/2022 ordered Referral Ordered: Hep B Surface Ab Appointment date/timeframe: 08/03/2020 ordered Referral Ordered: Hep B surface Ag Appointment date/timeframe: 08/03/2020 ordered Referral Ordered: Liver Biopsy With Ultrasound Guidance Appointment date/timeframe: 10/18/2019 ordered Referral Ordered: Hepatitis D Antigen Appointment date/timeframe: 01/29/2020 ordered Referral Ordered: Hepatitis D QRT-PCR (serum) Appointment date/timeframe: 01/29/2020 ordered Referral Ordered: follow-up visit with Nina Syed MD 1 Year Appointment date/timeframe: 1 Year ordered Referral Ordered: follow-up visit with Nina Syed MD 6 Months Appointment date/timeframe: 6 Months ordered Referral Ordered: Hepatoma Protocol Appointment date/timeframe: 11/10/2017 ordered History Of Present Illness Encounter Date Complaint History Of Prese nt Illness GI Symptoms or Concerns This is a 62 year old woman with chronic HBV virus infection, e-antigen negative. Patient is deaf. Patient is from [place]. She moved to the [facility] [place] [facility]. Patient was first diagnosed with HBV in 1991 when she underwent routine tests during . She likely acquired HBV from her mother. I first saw the patient early 2017 and her labs back then revealed abnormal LFTs and high HBV DNA (AST 118, ALT 160, ALK 72, total bilirubin 1.0, HBV DNA 12,000 IU/mL). Therefore, I placed the patient on anti-HBV therapy (Initially Vemlidy then switched to Viread for insurance related reasons). Renal function is normal at baseline. Treatment resulted in complete virological response, yet transaminase remain abnormal (see labs). Hepatitis C antibody negative. Hepatitis D antibody / Hepatitis D antigen / Hepatitis D PCR all negative. No excessive alcohol use. Patient carries several metabolic risk factors including diabetes, hypertension and hyperlipidemia - all controlled with medical therapy. FibroScan suggested that patient may have advanced hepatic fibrosis with median Liver Stiffness Score of 12.5 kilopascal (kPa). PLT count within normal limits. Eventually, patient underwent percutaneous liver biopsy 10/19/2019. This revealed an evidence of NAFLD with 50% steatosis, SARAH activity score 4 out of 8, and stage 1C fibrosis. Patient feels fine at baseline. She denies abdominal pain, nausea or vomiting. No changes in bowel habits. No blood in the stool. Weight is stable. GI Symptoms or Concerns This is a 61 year old woman with chronic HBV virus infection, e-antigen negative. Patient is deaf. Her mother is present, assisting in conducting this follow up visit. Patient is from [place]. [place] the [place] in [place]. Patient was first diagnosed with HBV in 1991 when she underwent routine tests during . She likely acquired HBV from her mother. I first saw the patient early 2017 when she had abnormal LFTs and high HBV DNA (AST 118, ALT 160, ALK 72, total bilirubin 1.0, HBV DNA 12,000 IU/mL). Therefore, I placed the patient on anti-HBV therapy (Initially Vemlidy then switched to Viread for insurance related reasons). Renal function is normal at baseline. Treatment resulted in complete virological response, yet transaminase remain abnormal (see labs). Hepatitis C antibody negative. Hepatitis D antibody / Hepatitis D antigen / Hepatitis D PCR all negative. No excessive alcohol use. Patient carries several metabolic risk factors including diabetes, hypertension and hyperlipidemia - all controlled with medical therapy. FibroScan suggested that patient may have advanced hepatic fibrosis with median Liver Stiffness Score of 12.5 kilopascal (kPa). PLT count within normal limits. Eventually, patient underwent percutaneous liver biopsy 10/19/2019. This revealed an evidence of NAFLD with 50% steatosis, SARAH activity score 4 out of 8, and stage 1C fibrosis. Patient feels fine at baseline. She denies abdominal pain, nausea or vomiting. No changes in bowel habits. No blood in the stool. Weight is stable. She had screening colonoscopy last year that was normal per patient. She had polyps in the past, and she's on 5-year schedule. GI Symptoms or Concerns This is a 59 year old woman with chronic HBV virus infection, e-antigen negative. Patient is deaf. Her mother is present, assisting in conducting this follow up visit. Patient is from [place]. [place]. Patient was first diagnosed with HBV in 1991 when she underwent routine tests during . She likely acquired HBV from her mother. I first saw the patient early 2017 when she had abnormal LFTs and high HBV DNA (AST 118, ALT 160, ALK 72, total bilirubin 1.0, HBV DNA 12,000 IU/mL). Therefore, I placed the patient on anti-HBV therapy with Vemlidy. Renal function is normal at baseline. Treatment resulted in complete virological response, yet transaminase remain abnormal (see labs). Hepatitis C antibody negative. Hepatitis D antibody negative. No excessive alcohol use. Patient carries several metabolic risk factors including diabetes, hypertension and hyperlipidemia - all controlled with medical therapy. FibroScan suggested that patient may have advanced hepatic fibrosis with median Liver Stiffness Score of 12.5 kilopascal (kPa). PLT count within normal limits. Eventually, patient underwent percutaneous liver biopsy 10/19/2019. This revealed an evidence of NAFLD with 50% steatosis, SARAH activity score 4 out of 8, and stage 1C fibrosis. Patient feels fine at baseline. She denies abdominal pain, nausea or vomiting. No changes in bowel habits. No blood in the stool. Weight is stable. She had screening colonoscopy last year that was normal per patient. She had polyps in the past, and she's on 5-year schedule. GI Symptoms or Concerns This is a 59 year old woman with chronic HBV virus infection, e-antigen negative. Patient is deaf. Her mother consents for telephone follow up visit. Her mother assists in conducting the telephone visit. Patient is from [place]. She moved to the [facility] in 1980. Patient was first diagnosed with HBV in 1991 when she underwent routine tests during . She likely acquired HBV from her mother. I first saw the patient early 2017 when she had abnormal LFTs and high HBV DNA as follow AST 118, ALT 160, ALK 72, total bilirubin 1.0, HBV DNA 12,000 IU/mL. Therefore, I placed the patient on anti-HBV therapy with Vemlidy. Renal function is normal at baseline. Treatment resulted in complete virological response, yet transaminase remain abnormal (see labs). Hepatitis C antibody negative. Hepatitis D antibody negative. She is immune against HAV. No excessive alcohol use. She carries several metabolic risk factors including diabetes, hypertension and hyperlipidemia - all controlled with medical therapy. Ultrasound shows hepatic steatosis but no evidence of liver cirrhosis and no focal liver lesion. FibroScan, however, suggests that patient has advanced hepatic fibrosis with median Liver Stiffness Score of 12.5 kilopascal (kPa). PLT count within normal limits. Patient feels fine at baseline. She denies abdominal pain, nausea or vomiting. No changes in bowel habits. No blood in the stool. Weight is stable. She had screening colonoscopy last year that was normal per patient. She had polyps in the past, and she's on 5-year schedule. GI Symptoms or Concerns This is a 58 year old woman presents for follow up of chronic HBV virus infection, e-antigen negative. Patient is from [place]. [place]. Patient was first diagnosed with HBV in 1991 when she underwent routine tests during . She likely acquired HBV from her mother. I first saw the patient early 2017 when she had abnormal LFTs and high HBV DNA as follow AST 118, ALT 160, ALK 72, total bilirubin 1.0, HBV DNA 12,000 IU/mL. Therefore, I placed the patient on anti-HBV therapy with Vemlidy. Renal function is normal at baseline. Ultrasound shows hepatic steatosis but no evidence of liver cirrhosis and no focal liver lesion. FibroScan, however, suggests that patient has advanced hepatic fibrosis with median Liver Stiffness Score of 12.5 kilopascal (kPa). PLT count within normal limits. Hepatitis C antibody negative. She is immune against HAV. No excessive alcohol use. She carries several metabolic risk factors including diabetes, hypertension and hyperlipidemia - all controlled with medical therapy. Patient feels fine at baseline. She denies abdominal pain, nausea or vomiting. No changes in bowel habits. No blood in the stool. Weight is stable. She just had screening colonoscopy that was normal per patient. She had polyps in the past, and she's on 5-year schedule. GI Symptoms or Concerns This is a 57 year old woman presents for evaluation of chronic HBV virus infection, e-antigen negative. Patient is from [place]. [place]. Patient was first diagnosed with HBV in 1991 when she underwent routine tests during . She likely acquired HBV from her mother. I saw the patient earlier this year when she had abnormal LFTs and high HBV DNA as follow AST 118, ALT 160, ALK 72, total bilirubin 1.0, HBV DNA 12,000 IU/mL. Therefore, I placed the patient on anti-HBV therapy with Vemlidy. Renal function is normal at baseline. Ultrasound 05/2017 showed hepatic steatosis but no evidence of liver cirrhosis and no focal liver lesion. FibroScan, however, suggests that patient has advanced hepatic fibrosis with median Liver Stiffness Score of 12.5 kilopascal (kPa). PLT count within normal limits. Hepatitis C antibody negative. She is immune against HAV. No excessive alcohol use. She carries several metabolic risk factors including diabetes, hypertension and hyperlipidemia - all controlled with medical therapy. Patient feels fine at baseline. She denies abdominal pain, nausea or vomiting. No changes in bowel habits. No blood in the stool. Weight is stable. She just had screening colonoscopy that was normal per patient. She had polyps in the past, and she's on 5-year schedule. GI Symptoms or Concerns This is a 57 year old woman presents for evaluation of chronic HBV virus infection. Patient is from [place]. She moved to the [facility] in 1980. Patient was first diagnosed with HBV in 1991 when she underwent routine tests during . She has never been on treatment for hepatitis B. She has not followed up for hepatitis B, until recently she went for annual physical. Routine labs showed the following: Labs : AST 118, ALT 160, ALK 72, total bilirubin 1.0, albumin 5.3, total protein 8.5, creatinine 0.7Hepatitis B surface antigen pos, Hepatitis B core antibody total pos, Hepatitis B surface antibody neg, HBV DNA 12,000 IU/mL. Hepatitis C antibody negative. Celiac serology including IgA total and tTg IgA negative.No history of blood transfusion, IV drugs use or tattoos. Mother has hepatitis B. No excessive alcohol use. She carries several metabolic risk factors including diabetes, hypertension and hyperlipidemia - all controlled with medical therapy. Patient feels fine at baseline. She denies abdominal pain, nausea or vomiting. No changes in bowel habits. No blood in the stool. Weight is stable. She just had screening colonoscopy that was normal per patient. She had polyps in the past, and she's on 5-year schedule. Functional Status Date Functional Assessmen t No Information Instructions Date Instruction Additional Infor mation No Information Assessments Type Assessment Date No Information Patient Care Teams Name Effective Dates (start - stop) Status Members No Information
--- OUTSIDE RECORDS SUMMARY | 2023-04-11 12:04 | XMS_ITS | Encounter Summary ---
Author Name Unknown Organization [facility] Address [address] [place] [address] Care Team Providers Care Balance Assembler Name Role Phone Needs Pcp, Assignment Primary Care Provider Encounter Details Date Type Department Care Team Description 11/25/2022 Notes/Orders [facility] [address] [place] [id number] Antonia Bryan AUDonny [address] [place] [address] Bilateral sensorineural hearing loss (Primary Dx) Social History Tobacco Use Types Packs/Day Years Used Date Smoking Tobacco: Never Sex and Gender Information Value Date Recorded Sex Assigned at Not on file Gender Identity Not on file Sexual Orientation Not on file documented as of this encounter Plan of Treatment Not on file documented as of this encounter Visit Diagnoses Diagnosis Bilateral sensorineural hearing loss- Primary Sensorineural hearing loss, bilateral documented in this encounter Care Teams Balance Assembler Relationship Specialty Start Date End Date Needs Pcp, Assignment [place], [place] [address] PCP - General 12/13/14 documented as of this encounter
--- OUTSIDE RECORDS SUMMARY | 2023-04-11 12:04 | XMS_ITS | Encounter Summary ---
Author Name Unknown Organization [facility] Address [address], [place] [address] Care Team Providers Care Supervisor Lens Generating Name Role Phone Needs Pcp, Assignment Primary Care Provider Encounter Details Date Type Department Care Team Description 07/22/2022 Notes/Orders [facility] [address] [facility] [place] [address] Amrita Moore AU.D. [address] [place] [address] Bilateral sensorineural hearing loss (Primary Dx) Social [...] bilateral documented in this encounter Care Teams Supervisor Lens Generating Relationship Specialty Start Date End Date Needs Pcp, [place] [address] PCP - General 12/13/14 documented as of this encounter
--- OUTSIDE RECORDS SUMMARY | 2023-04-11 12:04 | XMS_ITS | Encounter Summary ---
Author Name Unknown Organization [facility] Address [address], [place] [address] Care Team Providers Care Instantizer Operator Name Role Phone Needs Pcp, Assignment Primary Care Provider Encounter Details Date Type Department Care Team Description 04/17/2022 Notes/Orders [facility] [address] [facility] [place] [address] Amrita Moore AU.D. [address] [place] [address] Bilateral sensorineural hearing loss (Primary Dx) Social [...] bilateral documented in this encounter Care Teams Instantizer Operator Relationship Specialty Start Date End Date Needs Pcp, [place] [address] PCP - General 12/13/14 documented as of this encounter
--- OUTSIDE RECORDS SUMMARY | 2023-04-11 12:04 | XMS_ITS | Encounter Summary ---
Author Name Unknown Organization [facility] Address [address] [address] Care Team Providers Care Auditing Coder Name Role Phone Needs Pcp, Assignment Primary Care Provider Encounter Details Date Type Department Care Team Description 04/22/2022 Notes/Orders [facility] [address] [facility] [place] [address] Amrita Moore AU.D. [address] [place] [address] Bilateral sensorineural hearing loss (Primary Dx) Social [...] bilateral documented in this encounter Care Teams Auditing Coder Relationship Specialty Start Date End Date Needs Pcp, [place] [address] PCP - General 12/13/14 documented as of this encounter
--- OUTSIDE RECORDS SUMMARY | 2023-04-11 12:04 | XMS_ITS | Clinical Summary ---
Author Name Unknown Organization [facility] Address [address] [place] [address] Care Team Providers Care Produce Associate Name Role Phone Needs Pcp, Assignment Primary Care Provider [phone] Source Comments You are receiving this document as you are listed as the primary care provider,follow-up provider, or the patient has been referred to you for consultation.This is in compliance with the Medicare and[facility] EHR Incentive Program,which states Providers who transition their patient to another setting of careor provider of care or refers their patient to another provider of care shouldprovide summary care record for each transition of care or referral. [facility] Allergies Active Allergy Reactions Criticality Noted Date Comments Review Food Intolerance 01/10/2003 PN: LW FI1: nka LW FI2: nka Medications Medication Sig Dispensed Refills Start Date End Date Status lisinopril (AKA ZESTRIL) 30 MG tablet Take 1 tablet by mouth daily (every 24 hours). LW Comment:Needs Appt/lab within 30 days LW Addl Instr:Indicated for: High Blood Pressure 30 0 09/03/2010 Active citalopram (AKA CELEXA) 40 MG tablet Take 1 tablet by mouth daily (every 24 hours). LW Comment:Needs Appt within 30 days LW Addl Instr:Indicated for: Depression 30 0 09/03/2010 Active simvastatin (AKA ZOCOR) 20 MG tablet Take 1 tablet by mouth every evening. LW Addl Instr:Indicated for: High Cholesterol 90 0 08/11/2009 Active calcium carbonate-vitamin D 600-400 MG-UNIT tablet Take 1 tablet by mouth 2 times daily. 180 0 04/03/2007 Active METFORMIN HCL OR Take by mouth. 0 04/15/2014 Acti ve Active Problems Problem Noted Date Diagnosed Date Hepatitis B carrier 04/11/2006 Esophageal reflux 04/11/2006 Overview: Gastroesophageal Reflux Disease Hyperlipidemia 02/04/2005 Complication of 02/04/2005 Overview: Hyperglycemia w Preg Mental retardation 02/04/2005 Overview: Mental Retardation NOS Hepatitis B virus infection 02/04/2005 Overview: Hepatitis B Major depressive disorder, single episode 2004 Overview: Depression Major NOS Essential hypertension 08/12/2003 Overview: Hypertension Hearing loss 08/21/2002 Overview: Hearing Loss NOS Immunizations Name Administration Dates Next Due DTP 06/26/1995, 5,09/30/1994, 995 Flu Vac Preserv Free (3+yrs) 01/29/2008 H1n1 Miv Sanofi 3+ Yr (Injected) 04/07/2009 HepA Adult (19+ yrs) 09/16/2002 HepB Adult (Engerix-B, 20+ y rs, 3 dose series) 04/08/1995,08/01/1994,06/01/1994 Hib (ActHIB) 06/26/1995, 5,09/30/1994, 995 MMR 06/26/1995 OPV, Trivalent (Orimune or tOPV) 11/28/1994,09/14,08/01/1994 TDAP (BOOSTRIX) 07/08/2008 Td 03/16/1998 Typhoid (Typhim [...] on file Sexual Orientation Not on file Last Filed Vital Signs Vital Sign Reading Time Taken Comments Blood Pressure 124/82 08/11/2009 8:25 AM CDT Pulse 64 08/11/2009 8:25 AM CDT Temperature 37.2 ??C (99 ??F) 05/15/2009 2:4 3 PM BRAIDER SETTER C: 37.2 C Respiratory Rate - - Oxygen Saturation - - Inhaled Oxygen Concentration - - Weight 60.8 kg (133 lb 15.9 oz) 010 8:25 AM CDT C: 60.8kg Height 155.6 cm (5' 1.25) 08/11/2009 8 :25 AM CDT C: 155.6cm Body Mass Index 25.11 08/11/2009 8:25 AM CDT Plan of Treatment Health Maintenance Due Date Last Done Comments Colon Cancer Screening Plan Due 1960 Medicare Annual Wellness Visit 1960 COVID-19 Vaccine (#1) 1961 HIV Screening (Preventive Services) 1977 Cervical Cancer Screening Due 04/04/2007 04/03/2007, 04/21/2002, 12/01/2000, Additional history exists Mammogram 02/10/2011 02/10/2010, 01/16, 01/29/2008, Additional history exists Cholesterol 08/11/2014 08/11/2009, 06/16, 05/29/2007, Additional history exists Influenza (#1) 2022 12/28/2019, 12/15, 12/26/2017, Additional history exists DTaP/Tdap/Td (9 - Tdap) 08/19/2029 08/20/19 20, 04/23/2010, 07/08/2008, Additional history exists IPV (Polio) Aged Out 11/28/1994, 09/14, 08/01/1994 No longer eligible based on patient's age to complete this topic HepB Completed 04/08/1995, 07/15, 06/01/1994 Hib Aged Out 06/26/1995, 11/15, 09/30/1994, Additional history exists No longer eligible based on patient's age to complete this topic Hep C Screening (Preventive Services) Completed 10/26/2009, 07/30/2008, 02/04/2005 HepA Completed 02/14/2011, 05/2002, 09/16/2002 Pneumococcal Aged Out 02/28/2014 No longer eligi ble based on patient's age to complete this topic Zoster/Shingles Completed 03/29/2020, 08/20/2019 MCV4 Aged Out No longer eligi ble based on patient's age to complete this topic Care Teams Produce Associate Relationship Specialty Start Date End Date Needs Pcp, [place] [address] PCP - General 12/13/14
[2023-04-11 12:05] LABS: Appearance Urine Cloudy (Clear); Bilirubin Urine Negative (Negative); Blood Urine 2+ (Negative); Color Urine Yellow (Yellow); Glucose Urine Negative (Negative); Ketones Urine Negative (Negative); Leukocyte Esterase Urine 1+ (Negative); Nitrite Urine Negative (Negative); Protein Urine 1+ (Negative); Urobilinogen Urine 0.2 (0.2-1.0)
[2023-04-11 12:13] LABS: Bacteria Urine Moderate; Squamous Epithelial Cell Urine Few (None-Few); WBC Urine >100 (0-5)
[2023-04-11] MEDS: ONDANSETRON 2 MG/ML inj 4 MG IVP (12:17)
[2023-04-11] MEDS: KETOROLAC 15 MG/ML inj IVP (12:17)
--- NOTE | 2023-04-11 12:50 | ED.NURSE ---
MD aware of pt low blood pressures. Second bag of fluids started per MD.
[2023-04-11] MEDS: cefTRIAXone 1 GM in 0.9 % SODIUM CHLORIDE Mini-bag 100 ML IVPB ×2 (14:24→17:54)
[2023-04-11 14:26] LABS: Lactate* 1.3 mmol/L (0.5-1.9)
[2023-04-11] MEDS: ACETAMINOPHEN 500 MG TABLET 1000 MG PO (15:03)
[2023-04-11 15:36] LABS: PCO2 VBG 36 mmHG (40-50); pH VBG 7.338 (7.32-7.43)
[2023-04-11 15:37] LABS: HCO3 VBG 20 mmol/L (21-28); PO2 VBG 29.3 mmHG (25-47)
[2023-04-11 15:44] LABS: Magnesium* 1.7 mg/dL (1.5-2.6)
[2023-04-11 16:35] LABS: Hemoglobin A1C* 6.8 % (0-5.6)
--- NOTE | 2023-04-11 16:35 | P.IMHP_ITS ---
Hospitalist- H&P: HPI History of Present Illness Date Seen: 04/11/23 Chief complaint: Abdominal pain Narrative: ADMISSION HISTORY AND PHYSICAL - HOSPITALIST Chief Complaint: Fever, back pain, abdominal pain, nausea with vomiting HPI: 63-year-old female presents to our emergency room with family secondary to overall not feeling well. She describes 2-3 days of acute back pain, abdominal pain and cramping, fever, nausea, lack of appetite. Further questioning she does admit to frequent urination with some mild burning. No odor. She reports being constipated. Her past medical history is relevant for developmental delay, congenital deafness, hepatitis B undergoing current therapy, hypertension and diabetes on metformin. ER COURSE: Labs, fluids, 1st dose of antibiotics and imaging. Assessment consistent with acute pyelonephritis with ANTONETTE and hypoxia. Question septic shock. Hospital medicine team was asked to admit and monitor and provide further management. CODE STATUS: FULL CODE EMERGENCY CONTACT PLAN: Primary Contact? Natalie Guerra? Sister?Rel to [facility]? [phone]?Cell Phone? I've updated the PFSH, medications and allergies in the Expanse tabs. INVESTIGATIONS: LABS/MICRO/ECG/IMAGING CBC reveals an elevated white blood cell count 15.4, hemoglobin of 11.4 and normal platelets. Blood gas shows a normal pH of 7.3 Moderate hyponatremia at 126. Normal bicarb at 20. Creatinine is 2.0 up from a baseline of 1.0-1.2. Elevated BUN at 31. A1c 6.8. Glucose 138. Normal lactate, magnesium, bilirubin. Mildly elevated transaminases Urine is cloudy with 2+ blood, 1+ leukocyte esterase, greater than 100 white blood cells, moderate bacteria. Urine culture pending. Blood cultures pending Chest x-ray, one view upon admission: Bilateral interstitial prominence could be due to edema. Abdomen pelvis contrast CT: . Mildly enlarged heterogeneous fatty infiltrated liver. No focal mass or biliary ductal dilation. Surgically absent gallbladder. 2. Though mild thickening and abnormal enhancement of the proximal ureteric and renal pelvic urothelium which can be seen in current or prior infection or intermittent obstruction. No current evidence of obstruction. Correlate with urinalysis. 3. Diverticulosis REVIEW OF SYSTEMS: 12-point ROS completed with patient and negative unless otherwise stated in HPI or below. PHYSICAL EXAM: CONSTITUTIONAL: Looks ill, tired but not septic. VITAL SIGNS: see record. HEENT: Normocephalic, atraumatic. PERRL, EOMI, conjunctivae pink, no scleral icterus. Ears and nose externally normal. Pharynx normal. NECK: No JVD. No carotid bruit, no thyromegaly, no adenopathy. CHEST: Clear to auscultation bilaterally HEART: S1 and S2 normal. No harsh murmurs. Edema none MUSCULOSKELETAL: Mild CVA tender NEURO: Cranial nerves intact. Grossly intact. No asymmetric findings. SKIN: No rashes, petechiae, concerning changes PSYCHIATRIC: Euthymic. ADMIT TO MEDSURG: FLOOR CARE DVT: Lovenox GI: PO intake Time spent: Today I spent 75 minutes seeing the patient, discussing the patient with ER staff, reviewing Expanse and EPIC notes/diagnostics, discussing the care plan with our care time that includes social work, PT/OT, pharmacy, RT, residential and documenting my impressions and plan in the medical record. [facility] Medical History (Updated 04/11/23 @ 20:23 by Collette Jo MD) Developmental delay, mild ?R62.50 - Unspecified lack of expected normal physiological development in childhood (ICD-10) Diabetes ?E11.9 - Type 2 diabetes mellitus without complications (ICD-10) Obstructive sleep apnea syndrome ?G47.33 - Obstructive sleep apnea (adult) (pediatric) (ICD-10) Hyperlipidemia ?E78.5 - Hyperlipidemia, unspecified (ICD-10) Hepatitis B virus infection (03/07/10) ?B19.10 - Unspecified viral hepatitis B without hepatic coma (ICD-10) Deafness (03/07/10) ?H91.90 - Unspecified hearing loss, unspecified ear (ICD-10) Hypertension ?I10 - Essential (primary) hypertension (ICD-10) Depression ?F32.A - Depression, unspecified (ICD-10) Surgical History History of bilateral breast reduction surgery ?Z98.890 - Other specified postprocedural states (ICD-10) Status post cholecystectomy ?Z90.49 - Acquired absence of other specified parts of digestive tract (ICD- 10) History of hysterectomy (03/07/10) ?Z90.710 - Acquired absence of both cervix and uterus (ICD-10) History of abdominoplasty (03/07/10) ?Z98.890 - Other specified postprocedural states (ICD-10) Family History Sister Breast cancer Other Colon cancer Social History (Updated 12/30/22 @ 14:13 by Berta Hough ~ [facility], GENERAL ACCOUNTANT) What is your current living situation?: I presently have a place to live Problems where you live: no known problems Problems where you live details: none In the past 12 months, utilities in danger of being shut off: no In past 12 months, lack of transportation kept you from medical appts, meetings, work, or getting things needed for daily living: no In the past 12 mos, have been you worried that your food would run out before you had money to buy more?: never true In the past 12 mos, the food you bought just didn't last and you didn't have money to buy more?: never true Highest level of school completed/degree received: don't know Smoking Status: Never smoker Do you use any of these nicotine containing products: None How often do you have a drink containing alcohol: never How often do you have six or more drinks on one occasion: Never AUDIT-C Alcohol total score: 0 Non-prescribed substance use: denies use Caffeine: Yes How often does anyone, including family, friends and others, physically hurt you : never How often does anyone, including family, friends and others, insult or talk down to you: never How often does anyone, including family, friends and others, threaten you with harm: never How often does anyone, including family, friends and others, scream or curse at you: never Little interest or pleasure in doing things: not at all Feeling down, depressed, or hopeless: not at all service: No Meds Home Medications and Allergies Allergies Allergy/AdvReac Type Severity Reaction Status Date / Time hydrocodone Allergy Intermediate rash and Verified 04/11/23 12:52 itching Exam Const: Vital Signs, click to edit/add: Vital Signs - 24 hr 04/11/23 10:49 04/11/23 11:40 04/11/23 11:41 Temperature 98.1 F Pulse Rate 71 74 Pulse Rate [Pulse Oximeter] 66 Pulse Rate [Right Brachial] Respiratory Rate 18 Blood Pressure 89/55 L Blood Pressure [Ri ght Arm] Blood Pressure [Ri ght Upper Arm] 82/56 L Pulse Oximetry 97 98 97 Oxygen Delivery Me thod Room Air Oxygen Flow Rate 04/11/23 11:45 04/11/23 12:00 04/11/23 12:02 Temperature Pulse Rate 73 93 76 Pulse Rate [Pulse Oximeter] Pulse Rate [Right Brachial] Respiratory Rate Blood Pressure 84/59 L Blood Pressure [Ri ght Arm] Blood Pressure [Ri ght Upper Arm] Pulse Oximetry 97 90 97 Oxygen Delivery Me thod Oxygen Flow Rate 04/11/23 12:03 04/11/23 12:15 04/11/23 12:15 Temperature 98.5 F Pulse Rate 91 79 Pulse Rate [Pulse Oximeter] Pulse Rate [Right Brachial] Respiratory Rate Blood Pressure Blood Pressure [Ri ght Arm] Blood Pressure [Ri ght Upper Arm] Pulse Oximetry 97 97 Oxygen Delivery Me thod Oxygen Flow Rate 04/11/23 12:46 04/11/23 12:47 04/11/23 13:00 Temperature Pulse Rate 87 73 70 Pulse Rate [Pulse Oximeter] Pulse Rate [Right Brachial] Respiratory Rate Blood Pressure 82/54 L Blood Pressure [Ri ght Arm] Blood Pressure [Ri ght Upper Arm] Pulse Oximetry 93 94 93 Oxygen Delivery Me thod Oxygen Flow Rate 04/11/23 13:02 04/11/23 13:15 04/11/23 13:17 Temperature Pulse Rate 70 73 71 Pulse Rate [Pulse Oximeter] Pulse Rate [Right Brachial] Respiratory Rate Blood Pressure 85/56 L 87/59 L Blood Pressure [Ri ght Arm] Blood Pressure [Ri ght Upper Arm] Pulse Oximetry 93 92 92 Oxygen Delivery Me thod Oxygen Flow Rate 04/11/23 13:30 04/11/23 13:32 04/11/23 13:45 Temperature Pulse Rate 77 73 70 Pulse Rate [Pulse Oximeter] Pulse Rate [Right Brachial] Respiratory Rate Blood Pressure 85/56 L Blood Pressure [Ri ght Arm] Blood Pressure [Ri ght Upper Arm] Pulse Oximetry 91 90 92 Oxygen Delivery Me thod Oxygen Flow Rate 04/11/23 13:47 04/11/23 14:00 04/11/23 14:02 Temperature Pulse Rate 72 72 71 Pulse Rate [Pulse Oximeter] Pulse Rate [Right Brachial] Respiratory Rate Blood Pressure 82/53 L 84/52 L Blood Pressure [Ri ght Arm] Blood Pressure [Ri ght Upper Arm] Pulse Oximetry 92 91 91 Oxygen Delivery Me thod Oxygen Flow Rate 04/11/23 14:03 04/11/23 14:15 04/11/23 14:25 Temperature 98.2 F Pulse Rate 72 75 Pulse Rate [Pulse Oximeter] Pulse Rate [Right Brachial] Respiratory Rate 20 Blood Pressure Blood Pressure [Ri ght Arm] Blood Pressure [Ri ght Upper Arm] Pulse Oximetry 91 93 Oxygen Delivery Me thod Oxygen Flow Rate 04/11/23 14:26 04/11/23 14:29 04/11/23 14:30 Temperature Pulse Rate 76 63 75 Pulse Rate [Pulse Oximeter] Pulse Rate [Right Brachial] Respiratory Rate Blood Pressure 76/52 L 96/54 L Blood Pressure [Ri ght Arm] Blood Pressure [Ri ght Upper Arm] Pulse Oximetry 93 93 93 Oxygen Delivery Me thod Oxygen Flow Rate 04/11/23 14:31 04/11/23 14:32 04/11/23 14:45 Temperature Pulse Rate 65 68 72 Pulse Rate [Pulse Oximeter] Pulse Rate [Right Brachial] Respiratory Rate Blood Pressure 83/53 L Blood Pressure [Ri ght Arm] Blood Pressure [Ri ght Upper Arm] Pulse Oximetry 93 93 92 Oxygen Delivery Me thod Oxygen Flow Rate 04/11/23 14:47 04/11/23 15:00 04/11/23 15:02 Temperature Pulse Rate 68 66 67 Pulse Rate [Pulse Oximeter] Pulse Rate [Right Brachial] Respiratory Rate Blood Pressure 89/59 L 86/63 L Blood Pressure [Ri ght Arm] Blood Pressure [Ri ght Upper Arm] Pulse Oximetry 93 93 91 Oxygen Delivery Me thod Oxygen Flow Rate 04/11/23 15:15 04/11/23 15:17 04/11/23 15:18 Temperature Pulse Rate 68 73 68 Pulse Rate [Pulse Oximeter] Pulse Rate [Right Brachial] Respiratory Rate Blood Pressure 85/64 L Blood Pressure [Ri ght Arm] Blood Pressure [Ri ght Upper Arm] Pulse Oximetry 90 89 Oxygen Delivery Me thod Oxygen Flow Rate 04/11/23 15:30 04/11/23 15:32 04/11/23 15:45 Temperature Pulse Rate 61 65 72 Pulse Rate [Pulse Oximeter] Pulse Rate [Right Brachial] Respiratory Rate Blood Pressure 89/59 L Blood Pressure [Ri ght Arm] Blood Pressure [Ri ght Upper Arm] Pulse Oximetry 93 95 94 Oxygen Delivery Me thod Nasal Cannula Oxygen Flow Rate 3 04/11/23 15:47 04/11/23 16:10 04/11/23 16:10 Temperature Pulse Rate 75 Pulse Rate [Pulse Oximeter] Pulse Rate [Right Brachial] Respiratory Rate Blood Pressure 92/58 L Blood Pressure [Ri ght Arm] Blood Pressure [Ri ght Upper Arm] Pulse Oximetry 93 96 96 Oxygen Delivery Me thod Nasal Cannula Oxygen Flow Rate 3 04/11/23 16:11 Temperature 100.4 F H Pulse Rate Pulse Rate [Pulse Oximeter] Pulse Rate [Right Brachial] 84 Respiratory Rate 20 Blood Pressure Blood Pressure [Ri ght Arm] 86/60 L Blood Pressure [Ri ght Upper Arm] Pulse Oximetry 96 Oxygen Delivery Me thod Nasal Cannula Oxygen Flow Rate 3 Hospitalist - H&P: Result Labs Labs: Short CBC 04/11/23 Range/Units 11:35 WBC 15.44 H (4.50-11.00) K/uL Hgb 11.4 L (12.0-16.0) gm/dL Hct 35.5 (33.0-51.0) % Plt Count 263 (140-440) K/uL BMP 04/11/23 11:35 Sodium 126 L Potassium 3.8 Chloride 90 L Carbon Dioxide 20 BUN 31 H Creatinine 2.0 H Glucose 138 H Calcium 9.5 Liver Function 04/11/23 Range/Units 11:35 Total Bilirubin 1.2 (0.1-1.5) mg/dL Direct Bilirubin 0.4 (0.0-0.5) mg/dL AST 64 H (12-35) U/L ALT 87 H (4-35) U/L Alkaline Phosphatase 74 (40-150) U/L Albumin 4.8 (3.3-5.0) g/dL Urine 04/11/23 Range/Units 11:18 Urine Color Yellow (Yellow) Urine Appearance Cloudy A (Clear) Urine pH 6.0 (5.0-8.5) Ur Specific [place] 1.020 (1.000-1.030) Urine Protein 1+ A (Negative) Urine Glucose (UA) Negative (Negative) Assessment and Plan Assessment and plan (1) Pyelonephritis: Problem comment: -1 gram rocephin given in the ED, will continue this at 2 g Q 24 hours. I will add 1 g now. -UC and BC pending -accurate I/Os - cath if needed Status: Acute (2) Severe sepsis: Problem comment: -secondary to pyelonephritis. WBC count is greater than 20, systolic blood pressure is less than 90. Creatinine is at 2.0. Acute hypoxic respiratory failure. -antibiotics, fluids -pressor if MAP <65 for greater than 30 mins Status: Acute (3) Acute hypoxemic respiratory failure: Problem comment: -1-2L NC. -cxr: Bibasilar edema Status: Acute (4) ANTONETTE (acute kidney injury): Problem comment: admit creatinine 2.0, baseline 1.0-1.2 Elevated BUN, likely prerenal dehydration Status: Acute (5) Deafness: Problem comment: -congenital Status: Acute (6) Hepatitis B virus infection: Problem comment: -dx 1992, followed by [facility]. -PO Vemlidy -followed by liver ultrasound q.6 months, and AFP levels Status: Acute (7) Developmental delay, mild: Problem comment: -from . low IQ. 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 mother of two; lived with previous spouse or parents. sister is POA. Status: Acute (8) Diabetes: Problem comment: -oral metformin (on hold) -A1C less than 7 -Accu-Cheks ordered Status: Acute (9) Hyperlipidemia: Problem comment: -statin Status: Acute (10) Hypertension: Problem comment: -3 Med regimen: amlodipine, chlorthalidone, lisinopril (on hold) Status: Acute (11) Depression: Problem comment: -daily prozac Status: Acute
--- NOTE | 2023-04-11 16:45 | CRLHL7_ITS ---
For Patients: As a result of the Century Cures Act, medical imaging exams and procedure reports are released immediately into your electronic medical record. You may view this report before your referring provider. If you have questions, please contact your health care provider. INDICATION: Hypoxia. TECHNIQUE: Chest 1 view. COMPARISON: None. FINDINGS: No focal consolidation, pleural effusion, or pneumothorax. Increased interstitial opacities bilaterally. Heart size upper limits of normal. Pulmonary vasculature is within normal limits. Surgical clips right upper quadrant. The bones are unremarkable. IMPRESSION: Bilateral interstitial prominence could be due to edema. Dictated by Elzbieta Darnell MD @ 04/11/2023 5:07:23 PM (Electronically Signed)
[2023-04-11] MEDS: 0.9 % SODIUM CHLORIDE 1000 ml 1,000 ML 125 ML IV (17:50)
[2023-04-11] MEDS: PANTOPRAZOLE SODIUM 40 MG INJ IVP (17:54)
--- NOTE | 2023-04-11 19:57 | PC.NURSE ---
Pt settled using [employer]pad mass spectroscopist. BP's soft, MAP greater than 65, mildly elevated temp, HR=84. Abdomen distended, pt states she is uncomfortable. Bladder scan pending. Sister Natalie to be main contact.
[2023-04-11] MEDS: HYDROmorphone 0.5 mg/0.5 ml inj IVP ×2 (20:25→23:38)
[2023-04-11] MEDS: LACTATED RINGERS 500 ML 500 ML IV (20:39)
[2023-04-11] MEDS: ENOXAPARIN 40 MG/0.4 ML INJ SUBCUT (20:55)
[2023-04-11] MEDS: INSULIN ASPART 100 UNIT/ML SUBCUT (21:41)
--- NOTE | 2023-04-11 22:01 | CRLHL7_ITS ---
For Patients: As a result of the Century Cures Act, medical imaging exams and procedure reports are released immediately into your electronic medical record. You may view this report before your referring provider. If you have questions, please contact your health care provider. Indication: Distension. Technique: Abdomen 2 views. Permanently recorded images are archived. Comparison: CT abdomen and pelvis from the same day. Findings: Bowel: Nonobstructive bowel gas pattern. Normal colonic stool burden. Other: No sign of free air. No sign of soft tissue mass. The lung bases are clear. The osseous structures are unremarkable for age. Cholecystectomy clips. Surgical clips in the right pelvis. Impression: No evidence of an acute intra-abdominal process. Dictated by Richardson Mcclure MD @ 04/11/2023 11:14:19 PM (Electronically Signed)
[2023-04-11] MEDS: FUROSEMIDE 10 MG/ML inj 40 MG IVP (22:18)
[2023-04-11 22:30] LABS: Troponin I* 0.05 ng/mL (0.01-0.04)
[2023-04-11 22:33] LABS: NT Pro B Type NatriureticPept* 1200 pg/mL
[2023-04-11 22:35] LABS: HCO3 VBG 19 mmol/L (21-28); PCO2 VBG 39 mmHG (40-50); pH VBG 7.285 (7.32-7.43)
[2023-04-11 22:53] LABS: Chloride* 92 mmol/L (96-114); Sodium* 125 mmol/L (135-149)
[2023-04-11 22:56] LABS: Anion Gap 14 mEq/L (7-15); Carbon Dioxide* 19 mmol/L (20-32); Est. Creatinine Clearance* 23.07; Estimated Glomerular Filt Rate 28 ml/min
[2023-04-11 22:57] LABS: Blood Urea Nitrogen* 32 mg/dL (7-30); Calcium* 9.9 mg/dL (8.4-10.6); Glucose* 137 mg/dL (60-115)
--- NOTE | 2023-04-11 23:00 | PM.DS1 ---
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 She is now on a vasopressor, norepinephrine at 0.25 mics per kg per minute, bicarb D5W, stress dose steroid. Widened antibiotic coverage to Zosyn to cover Pseudomonas. She is also on high-flow oxygen to support her increasing O2 demands. She is acidotic, in acute hypoxic respiratory failure with ANTONETTE. She has mild pulmonary edema with a junctional accelerated cardiac rhythm. Underlying developmental delay, deafness, hepatitis B are complicating her clinical picture. (2) Pyelonephritis: Status: Acute Problem details: -rec'd 2 grams rocephin. first dose of Zosyn given at transfer. -UC and BC pending -accurate I/Os - cath if needed (3) Acute hypoxemic respiratory failure: Status: Acute Problem details: -HF Ox. 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 -PO Vemlidy -followed by liver ultrasound q.6 months, and AFP levels (7) Developmental delay, mild: Status: Acute Problem details: -from . low IQ. 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 mother of two; lived with previous spouse or parents. sister is POA. (8) Diabetes: Status: Acute Problem details: -oral metformin (on hold) -A1C less than 7 -Accu-Cheks ordered (9) Hyperlipidemia: Status: Acute Problem details: -statin (10) Hypertension: Status: Acute Problem details: -3 Med regimen: amlodipine, chlorthalidone, lisinopril (on hold) (11) Depression: Status: Acute Problem details: -daily prozac DS: Summary Hospital Course Hospital Course: HOSPITALIST TRANSFER SUMMARY ATTENDING PHYSICIAN: Collette Jo MD REASON FOR TRANSFER -septic shock BRIEF HOSPITAL COURSE: -patient was admitted earlier this morning with severe sepsis related to bilateral pyelonephritis. Throughout the day she became more ill. She developed septic shock. She became acidotic, increasing her oxygen demands and dropping her mean arterial pressure demanding a pressor initiation. She also was requiring high-flow O2 at the time of transfer. We initiated norepinephrine, broad-spectrum antibiotics, stress dose steroids and sodium bicarb in D5 prior to transfer. -notably her urine output was not matching her input. Vasques catheter was placed. She appears to have some amount congestive heart failure and pulmonary edema as well. Mild bump in her troponin. Mild bump in her BNP. we placed her high flow oxygen and norepi drip. SERVICES NOT AVAILABLE HERE THAT THIS PATIENT NEEDS: ICU care for septic shock ACCEPTING PHYSICIAN/SERVICE/LOCATION: [facility] - Dr. Valdes accepting MEDICATIONS AT TIME OF TRANSFER: zosyn IV hydrocortisone 100mg x 1 push d5w with sodium bicarb infusion DRIPS/LINES: vasques 2 PIV VITAL SIGN, MEDICATION, LAB/MICRO, IMAGING SUMMARY (full details available in account tabs or by records request) REVIEW OF SYSTEMS less responsive PHYSICAL EXAM: CONSTITUTIONAL: awake but appears less alert VITAL SIGNS: see record. Exam unchanged from earlier with notable exceptions: moderatly distended abdomen DISPOSITION: transfer via ems or aircare if available. Time spent on transfer and critical care 90 minutes. This includes speaking with accepting physician; family/patient and coordinating meds/drips for transfer Status at Discharge Functional status at discharge: bed bound Overall status at discharge: patient is back to baseline Time Spent with Patient Time attestation: Total time spent providing and/or coordinating discharge services: Exam Const: Vital Signs, click to edit/add: Vital Signs - 24 hr 04/11/23 10:49 04/11/23 11:40 04/11/23 11:41 Temperature 98.1 F Pulse Rate 71 74 Pulse Rate [Pulse Oximeter] 66 Pulse Rate [Right Brachial] Respiratory Rate 18 Blood Pressure 89/55 L Blood Pressure [Ri ght Arm] Blood Pressure [Ri ght Upper Arm] 82/56 L Pulse Oximetry 97 98 97 Oxygen Delivery Me thod Room Air Oxygen Flow Rate 04/11/23 11:45 04/11/23 12:00 04/11/23 12:02 Temperature Pulse Rate 73 93 76 Pulse Rate [Pulse Oximeter] Pulse Rate [Right Brachial] Respiratory Rate Blood Pressure 84/59 L Blood Pressure [Ri ght Arm] Blood Pressure [Ri ght Upper Arm] Pulse Oximetry 97 90 97 Oxygen Delivery Me thod Oxygen Flow Rate 04/11/23 12:03 04/11/23 12:15 04/11/23 12:15 Temperature 98.5 F Pulse Rate 91 79 Pulse Rate [Pulse Oximeter] Pulse Rate [Right Brachial] Respiratory Rate Blood Pressure Blood Pressure [Ri ght Arm] Blood Pressure [Ri ght Upper Arm] Pulse Oximetry 97 97 Oxygen Delivery Me thod Oxygen Flow Rate 04/11/23 12:46 04/11/23 12:47 04/11/23 13:00 Temperature Pulse Rate 87 73 70 Pulse Rate [Pulse Oximeter] Pulse Rate [Right Brachial] Respiratory Rate Blood Pressure 82/54 L Blood Pressure [Ri ght Arm] Blood Pressure [Ri ght Upper Arm] Pulse Oximetry 93 94 93 Oxygen Delivery Me thod Oxygen Flow Rate 04/11/23 13:02 04/11/23 13:15 04/11/23 13:17 Temperature Pulse Rate 70 73 71 Pulse Rate [Pulse Oximeter] Pulse Rate [Right Brachial] Respiratory Rate Blood Pressure 85/56 L 87/59 L Blood Pressure [Ri ght Arm] Blood Pressure [Ri ght Upper Arm] Pulse Oximetry 93 92 92 Oxygen Delivery Me thod Oxygen Flow Rate 04/11/23 13:30 04/11/23 13:32 04/11/23 13:45 Temperature Pulse Rate 77 73 70 Pulse Rate [Pulse Oximeter] Pulse Rate [Right Brachial] Respiratory Rate Blood Pressure 85/56 L Blood Pressure [Ri ght Arm] Blood Pressure [Ri ght Upper Arm] Pulse Oximetry 91 90 92 Oxygen Delivery Me thod Oxygen Flow Rate 04/11/23 13:47 04/11/23 14:00 04/11/23 14:02 Temperature Pulse Rate 72 72 71 Pulse Rate [Pulse Oximeter] Pulse Rate [Right Brachial] Respiratory Rate Blood Pressure 82/53 L 84/52 L Blood Pressure [Ri ght Arm] Blood Pressure [Ri ght Upper Arm] Pulse Oximetry 92 91 91 Oxygen Delivery Me thod Oxygen Flow Rate 04/11/23 14:03 04/11/23 14:15 04/11/23 14:25 Temperature 98.2 F Pulse Rate 72 75 Pulse Rate [Pulse Oximeter] Pulse Rate [Right Brachial] Respiratory Rate 20 Blood Pressure Blood Pressure [Ri ght Arm] Blood Pressure [Ri ght Upper Arm] Pulse Oximetry 91 93 Oxygen Delivery Me thod Oxygen Flow Rate 04/11/23 14:26 04/11/23 14:29 04/11/23 14:30 Temperature Pulse Rate 76 63 75 Pulse Rate [Pulse Oximeter] Pulse Rate [Right Brachial] Respiratory Rate Blood Pressure 76/52 L 96/54 L Blood Pressure [Ri ght Arm] Blood Pressure [Ri ght Upper Arm] Pulse Oximetry 93 93 93 Oxygen Delivery Me thod Oxygen Flow Rate 04/11/23 14:31 04/11/23 14:32 04/11/23 14:45 Temperature Pulse Rate 65 68 72 Pulse Rate [Pulse Oximeter] Pulse Rate [Right Brachial] Respiratory Rate Blood Pressure 83/53 L Blood Pressure [Ri ght Arm] Blood Pressure [Ri ght Upper Arm] Pulse Oximetry 93 93 92 Oxygen Delivery Me thod Oxygen Flow Rate 04/11/23 14:47 04/11/23 15:00 04/11/23 15:02 Temperature Pulse Rate 68 66 67 Pulse Rate [Pulse Oximeter] Pulse Rate [Right Brachial] Respiratory Rate Blood Pressure 89/59 L 86/63 L Blood Pressure [Ri ght Arm] Blood Pressure [Ri ght Upper Arm] Pulse Oximetry 93 93 91 Oxygen Delivery Me thod Oxygen Flow Rate 04/11/23 15:15 04/11/23 15:17 04/11/23 15:18 Temperature Pulse Rate 68 73 68 Pulse Rate [Pulse Oximeter] Pulse Rate [Right Brachial] Respiratory Rate Blood Pressure 85/64 L Blood Pressure [Ri ght Arm] Blood Pressure [Ri ght Upper Arm] Pulse Oximetry 90 89 Oxygen Delivery Me thod Oxygen Flow Rate 04/11/23 15:30 04/11/23 15:32 04/11/23 15:45 Temperature Pulse Rate 61 65 72 Pulse Rate [Pulse Oximeter] Pulse Rate [Right Brachial] Respiratory Rate Blood Pressure 89/59 L Blood Pressure [Ri ght Arm] Blood Pressure [Ri ght Upper Arm] Pulse Oximetry 93 95 94 Oxygen Delivery Me thod Nasal Cannula Oxygen Flow Rate 3 04/11/23 15:47 04/11/23 16:10 04/11/23 16:10 Temperature Pulse Rate 75 Pulse Rate [Pulse Oximeter] Pulse Rate [Right Brachial] Respiratory Rate Blood Pressure 92/58 L Blood Pressure [Ri ght Arm] Blood Pressure [Ri ght Upper Arm] Pulse Oximetry 93 96 96 Oxygen Delivery Me thod Nasal Cannula Oxygen Flow Rate 3 04/11/23 16:11 04/11/23 20:14 Temperature 100.4 F H 98.0 F Pulse Rate Pulse Rate [Pulse Oximeter] Pulse Rate [Right Brachial] 84 74 Respiratory Rate 20 20 Blood Pressure Blood Pressure [Ri ght Arm] 86/60 L 75/45 L Blood Pressure [Ri ght Upper Arm] Pulse Oximetry 96 90 Oxygen Delivery Me thod Nasal Cannula Nasal Cannula Oxygen Flow Rate 3 1 DS: Data Data Completed and Pending Labs on day of discharge: Labs from last 24 hours 04/11/23 04/11/23 04/11/23 22:30 22:02 17:08 WBC RBC Hgb Hct MCV MCH MCHC RDW Coeff of Patsy Plt Count Neut % (Auto) Lymph % (Auto) Beauregard % (Auto) Eos % (Auto) Baso % (Auto) Neut # (Auto) Lymph # (Auto) Bea[place]gard # (Auto) Eos # (Auto) Baso # (Auto) Abs Immat Gran (auto) Imm/Tot Granulo (auto) VBG pH 7.285 L VBG pCO2 39 L VBG pO2 27.0 VBG HCO3 19 L Sodium 125 L Potassium 4.0 Chloride 92 L Carbon Dioxide 19 L Anion Gap 14 BUN 32 H Creatinine 2.0 H Estimated Creat Clear 23.07 Estimated GFR 28 Glucose 137 H Hemoglobin A1c Lactate Calcium 9.9 Magnesium Total Bilirubin Direct Bilirubin AST ALT Alkaline Phosphatase Troponin I NT-Pro-B Natriuret Pep Total Protein Albumin Urine Color Urine Appearance Urine pH Ur Specific Denhoff Urine Protein Urine Glucose (UA) Urine Ketones Urine Blood Urine Nitrite Urine Bilirubin Urine Urobilinogen Ur Leukocyte Esterase Urine RBC Urine WBC Ur Squamous Epith Cells Urine Bacteria Lab Acknowledgement Test Added Test Added 04/11/23 04/11/23 04/11/23 15:27 14:14 11:35 WBC 15.44 H RBC 4.18 Hgb 11.4 L Hct 35.5 MCV 85 MCH 27 MCHC 32 RDW Coeff of Patsy 14.6 Plt Count 263 Neut % (Auto) 68.3 Lymph % (Auto) 20.5 Beauregard % (Auto) 10.6 Eos % (Auto) 0.1 Baso % (Auto) 0.3 Neut # (Auto) 10.50 H Lymph # (Auto) 3.20 H Beauregard # (Auto) 1.60 H Eos # (Auto) 0.00 Baso # (Auto) 0.00 Abs Immat Gran (auto) 0.00 Imm/Tot Granulo (auto) 0.2 VBG pH 7.338 VBG pCO2 36 L VBG pO2 29.3 VBG HCO3 20 L Sodium 126 L Potassium 3.8 Chloride 90 L Carbon Dioxide 20 Anion Gap 16 H BUN 31 H Creatinine 2.0 H Estimated Creat Clear 24.13 Estimated GFR 28 Glucose 138 H Hemoglobin A1c 6.8 H Lactate 1.3 Calcium 9.5 Magnesium 1.7 Total Bilirubin 1.2 Direct Bilirubin 0.4 AST 64 H ALT 87 H Alkaline Phosphatase 74 Troponin I 0.05 H NT-Pro-B Natriuret Pep 1200 Total Protein 8.4 H Albumin 4.8 Urine Color Urine Appearance Urine pH Ur Specific Denhoff Urine Protein Urine Glucose (UA) Urine Ketones Urine Blood Urine Nitrite Urine Bilirubin Urine Urobilinogen Ur Leukocyte Esterase Urine RBC Urine WBC Ur Squamous Epith Cells Urine Bacteria Lab Acknowledgement Test Added Test Added 04/11/23 11:18 WBC RBC Hgb Hct MCV MCH MCHC RDW Coeff of Patsy Plt Count Neut % (Auto) Lymph % (Auto) Beauregard % (Auto) Eos % (Auto) Baso % (Auto) Neut # (Auto) Lymph # (Auto) Bea[place]gard # (Auto) Eos # (Auto) Baso # (Auto) Abs Immat Gran (auto) Imm/Tot Granulo (auto) VBG pH VBG pCO2 VBG pO2 VBG HCO3 Sodium Potassium Chloride Carbon Dioxide Anion Gap BUN Creatinine Estimated Creat Clear Estimated GFR Glucose Hemoglobin A1c Lactate Calcium Magnesium Total Bilirubin Direct Bilirubin AST ALT Alkaline Phosphatase Troponin I NT-Pro-B Natriuret Pep Total Protein Albumin Urine Color Yellow Urine Appearance Cloudy A Urine pH 6.0 Ur Specific Denhoff 1.020 Urine Protein 1+ A Urine Glucose (UA) Negative Urine Ketones Negative Urine Blood 2+ A Urine Nitrite Negative Urine Bilirubin Negative Urine Urobilinogen 0.2 Ur Leukocyte Esterase 1+ A Urine RBC 10-25 A Urine WBC >100 A Ur Squamous Epith Cells Few Urine Bacteria Moderate A Lab Acknowledgement Preliminary micro results at discharge 04/11/23 Unknown Urine Culture - Preliminary Urine Random Culture in Progress Discharge Plan Discharge Disposition: [facility] Date of Admission: 04/11/23 16:10 Attending Provider on Discharge: Collette Jo Primary Care Provider: Sumit Walter Condition: Unchanged Discharge Orders: Transfer of Care to Other Hospital (ORDER); Ordered 04/11/23 Ordered By: Collette Jo Discharge Comments: Dr. Valdes accepting Oxygen: Yes Oxygen Delivery Method: HF NC oxygen Oxygen Flow Rate: 20L, 60% Urinary Catheter: Yes Drips/Lines: norepi, bicarb Services not available here: ICU
[2023-04-11] MEDS: HYDROCORTISONE SOD SUCCINATE 50 MG/ML inj 100 MG IVP (23:11)
[2023-04-11] MEDS: PIPERACILLIN/TAZOBACTAM 3.375 GM in 0.9 % SODIUM CHLORIDE Mini-bag 100 ML IVPB (23:13)
[2023-04-11 23:56] LABS: PCR FLU A Negative PCR FLU A (Negative); PCR FLU B Negative PCR FLU B (Negative); PCR RSV Negative PCR RSV (Negative); SARS PCR* Negative SARS-CoV-2 (Negative)
--- NOTE | 2023-04-12 02:01 | PC.NURSE ---
Lab reported +BC. Notififed nurse at [facility] were pt was transfered to.
--- NOTE | 2023-04-12 02:21 | PC.NURSE ---
Sewing Machine Repairer took pt over around 2100 d/t change in floor status to unit. Pt deaf, ASL speaking, Sewing Machine Repairer used iPad rod piler, pt also able to read lips. Pt was placed on a Norepinephrine drip, titrated drip according to protocol. Pt was requiring more O2 via NC to maintain O2 sats, pt was eventually placed on HFNC at 20/60 - pt was maintaining O2 sats 88-92%. Perez was placed at 2100, minimal output initially. MD updated on O2 needs, urine output and norepinephrine drip. 40mg Lasix given, increased urine output. Hospitalist was able to communicate with [facility] & set up transfer. ? ? Pt transferred to [facility] via nonemergent EMS at 2355. 2?peripheral IVs running at time of discharge, Left Forearm with Norepi at a rate of 0.3mcg/kg/min Y-sited with NS, & Sodium Bicarb in Right Wrist. Right AC saline locked after Zosyn was completed. Pt was able to stand and pivot to ems bed. Despite the change in care plan & transfer, pt appeared to be coping well & was smiling with staff prior to d/c.? Nurse to Nurse given at 2350.?
== END 2023-04-11 23:55 | disposition short-term general hospital (02) | DRG 871 ==
LOC: ED 15:39 → MEDSURG 15:50
PROVIDERS: Admitting Provider Family Medicine; Emergency Provider Emergency Medicine Emergency Medical Services; PCP Family Medicine; Visit Provider Family Medicine
DX: A41.9 Sepsis, unspecified organism (principal); J96.01 Acute respiratory failure with hypoxia; R65.21 Severe sepsis with septic shock; N10 Acute pyelonephritis; B19.10 Unspecified viral hepatitis B without hepatic coma; N17.8 Other acute kidney failure; N39.0 Urinary tract infection, site not specified; H91.90 Unspecified hearing loss, unspecified ear; R62.50 Unspecified lack of expected normal physiological development in childhood; E11.9 Type 2 diabetes mellitus without complications; E78.5 Hyperlipidemia, unspecified; I10 Essential (primary) hypertension; F32.A Depression, unspecified; I95.9 Hypotension, unspecified; Z79.84 Long term (current) use of oral hypoglycemic drugs
CPT/HCPCS: 36415; 51701; 71045; 74018; 74177; 80048; 80069; 80076; 81001; 82803; 82962; 83036; 83605; 83735; 83880; 84484; 85025; 86140; 87040; 87086; 87186; 87631; 93005; 94761; 99284; 99285; A9270; C9113; J0696; J1170; J1650; J1720; J1885; J1940; J2405; J2543; J7030; J7070; J7120; Q9967

== ENCOUNTER 2023-04-11 23:30 | Outpatient (CLI) | payer MEDICARE, MEDICAID, SELFPAY ==
--- OUTSIDE RECORDS SUMMARY | 2023-04-14 09:11 | XMS_ITS | Clinical Summary ---
Author Name Unknown Organization [facility] Address [address] [place] [address] Care Team Providers Care Telesales Professional Name Role Phone Needs Pcp, Assignment Primary Care Provider [phone] Source Comments You are receiving this document as you are listed as the primary care provider,follow-up provider, or the patient has been referred to you for consultation.This is in compliance with the Medicare and[facility] EHR Incentive Program,which states Providers who transition their patient to another setting of careor provider of care or refers their patient to another provider of care shouldprovide summary care record for each transition of care or referral. 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
--- OUTSIDE RECORDS SUMMARY | 2023-04-14 09:11 | XMS_ITS | Clinical Summary ---
Author Name Unknown Organization [facility] Address [place], [place] [address] Care Team Providers Care Cdl Bulk Driver Name Role Phone Sumit Walter MD Primary Care Provider [phone] Allergies Active Allergy Reactions Criticality Noted Date Comments Hydrocodone-Acetaminophen 05/12/2010 Tolerates. Had elevated bili at the time of the rash - likely cause of pruritis. Ibuprofen 05/12/2010 Medications Medication Sig Dispensed Refills Start Date End Date Status lisinopril (PRINIVIL; ZESTRIL) 30 mg tabletIndication s:hypertension Take 30 mg by mouth once daily. Indications: HYPERTENSION 0 04/12/19 24 Discontinued( Reorder (E-cancel not sent)) HYDROcodone-acet aminophen, 5-500 mg, (VICODIN) Tab tablet Take 1-2 tablets by mouth every 4 hours if needed for Pain. Max acetaminophen dose: 4000mg in 24 hrs. 15 tablet 0 05/14/2010 04/12/19 24 Discontinued( *Patient states no longer taking) tenofovir alafenamide (VEMLIDY) tablet Take 25 mg by mouth once daily with a meal. 0 04/12/19 24 Discontinued( Reorder (E-cancel not sent)) cholestyramine-a spartame (QUESTRAN LIGHT) 4 gram powder Take by mouth 2 times daily. 0 04/12/19 24 Discontinued( *Patient states no longer taking) chlorthalidone (HYGROTON) 25 mg tablet Take 25 mg by mouth once daily. 0 Suspended amLODIPine (NORVASC) 5 mg tablet Take 5 mg by mouth once daily. 0 Suspended atorvastatin (LIPITOR) 20 mg tablet Take 20 mg by mouth once daily. 0 Suspended metFORMIN (RIOMET) 500 mg/5 mL liquid Take 500 mg by mouth 2 times daily. 0 04/12/19 24 Discontinued( Reorder (E-cancel not sent)) FLUoxetine (PROZAC) 20 mg capsule Take 20 mg by mouth every morning. 0 Suspended neomycin-polymyx in-hydrocortison e (CORTISPORIN) otic solution Place 3 Drops into both ears once daily. 0 Suspended lisinopriL (PRINIVIL; ZESTRIL) 40 mg tablet Take 40 mg by mouth once daily. 0 Suspended metFORMIN (GLUCOPHAGE) 500 mg tablet Take 500 mg by mouth two times daily with meals. 0 Suspended tenofovir (VIREAD) 300 mg tablet Take 300 mg by mouth once daily. 0 Suspended mupirocin (BACTROBAN OINTMENT) ointment Apply topically to affected area(s) 3 times daily if needed. 0 Suspended triamcinolone (ARISTOCORT; KENALOG) 0.1 % cream Apply topically to affected area(s) once daily if needed. 0 Suspended naphazoline-phen iramine (Naphcon-A) 0.025-0.3 % ophthalmic solution Place 1 Drop into both eyes 4 times daily if needed for Eye Irritation. 0 Suspended Active Problems Problem Noted Date Diagnosed Date Septic shock 04/12/2023 Acute pyelonephritis 04/12/2023 Type 2 diabetes mellitus wit hout complication, without long-term current use of insulin 04/12/2023 AV junctional rhythm 04/12/2023 Acute respiratory failure with hypoxia Non-ischemic cardiomyopathy 04/12/2023 Hyponatremia 04/12/2023 Chronic viral hepatitis B without delta-agent Gallstone pancreatitis 05/14/2010 S/P laparoscopic cholecystectomy 05/14/2010 Choledocholithiasis 05/13/2010 Acute cholangitis 05/13/2010 Acute pancreatitis 05/13/2010 Hypertension 05/12/2010 Depression 05/12/2010 Hyperlipidemia 02/04/2005 Major depressive disorder, single episode 2004 Overview: Depression Major NOS Essential hypertension 08/12/2003 Overview: Hypertension Hearing loss 08/21/2002 Overview: Hearing Loss NOS Encounters Date Type Department Care Team Description 04/12/2023 12:57 AM WORSHIP PASTOR - Present Hospital Encounter [facility] [place] [id number] s, U Hospitalist Jean Esquivel MD Talberg, MD Alex Flores Nishant, MBBS from Last 3 Months Immunizations Name Administration Dates Next Due Influenza, IIV3 (Age >=3 years) 04/16/2010 Family History Medical History Relation Name Comments Diabetes Father Relation Name Status Comments Father Social History Tobacco Use Types Packs/Day Years Used Date Smoking Tobacco: Never Smokeless Tobacco: Never Alcohol Use Standard Drinks/Week Comments Not Currently 0 (1 standard drink = 0.6 oz pur e alcohol) occasionally Social Connections Answer Date Recorded Frequency of Communication with Friends and Fami ly 0 04/12/2023 Financial Resource Strain Answer Date R ecorded Difficulty of Paying Living Expenses 3 04/12/2023 Difficulty of Paying Living Expenses Not on file 04/12/2023 Food Insecurity Answer Date Recorded Worried About Running Out of Food in the Last Ye ar 1 04/12/2023 Transportation Needs Answer Date Record ed Lack of Transportation (Medical) 1 04/12/2023 Housing Stability Answer Date Recorded Unable to Pay for Housing in the Last Year 1 04/12/2023 Sex and Gender Information Value Date Recorded Sex Assigned at Not on file Gender Identity Not on file Sexual Orientation Not on file Obstetrics History Last Filed Vital Signs Vital Sign Reading Time Taken Comments Blood Pressure 104/77 04/14/2023 7:44 AM WORSHIP PASTOR Pulse 68 04/14/2023 7:44 AM WORSHIP PASTOR Temperature 36.9 ??C (98.4 ??F) 04/14/2023 7:44 AM CS T Respiratory Rate 18 04/14/2023 7:44 AM WORSHIP PASTOR Oxygen Saturation 97% 04/14/2023 7:44 AM WORSHIP PASTOR Inhaled Oxygen Concentration - - Weight 56.1 kg (123 lb 10.9 oz) 04/12/2023 1:00 AM WORSHIP PASTOR Height 157.5 cm (5' 2) 04/12/2023 1:00 AM WORSHIP PASTOR Body Mass Index 22.62 04/12/2023 1:00 AM WORSHIP PASTOR Plan of Treatment Health Maintenance Due Date Last Done Comments Pneumococcal series for age 6-64 (1 of 2 - PCV) 1967 Tdap 1972 Depression screening for age 12+ 1973 HIV for age 15-65 1976 BMI (ht and wt on same day) for age 18+ 1979 Hepatitis C screening for ag e 18-79 1979 Tetanus booster 1981 Pap test for age 21-65 1982 Colonoscopy through age 75 2006 Lipids for age 45-75 2006 Mammogram for age 45-75 2006 Zoster (shingles) series for age 50+ (1 of 2) 2011 Influenza for age 50-64 11/15/2022 04/16/2010 COVID-19 vaccine series Completed 01/07/20 23, 12/11/2021, 07/31/2021, Additional history exists Procedures The patient is currently admitted. The information in this section might not be complete until the patient is discharged. Procedure Name Priority Date/Time Associated Diagnosis Comments GLUCOSE METER Timed 04/14/2023 7:34 AM WORSHIP PASTOR MAGNESIUM Early AM 04/14/2023 5:16 AM WORSHIP PASTOR CBC W PLT NO DIFF Early AM 04/14/2023 5:1 6 AM WORSHIP PASTOR BASIC METABOLIC PANEL Early AM 04/14/2023 5:16 AM WORSHIP PASTOR GLUCOSE METER Timed 04/13/2023 10:16 PM WORSHIP PASTOR GLUCOSE METER Timed 04/13/2023 5:[address] HEAD BRAIN WO Routine 04/13/2023 4:11 PM WORSHIP PASTOR GLUCOSE METER Timed 04/13/2023 11:54 AM WORSHIP PASTOR POTASSIUM Timed 04/13/2023 9:34 AM WORSHIP PASTOR SCAN-CARDIAC STRIP 04/13/2023 8: 00 AM WORSHIP PASTOR GLUCOSE METER Timed 04/13/2023 7:51 AM WORSHIP PASTOR CREATININE ENZO 04/13/2023 4:18 AM WORSHIP PASTOR MAGNESIUM Early AM 04/13/2023 4:18 AM WORSHIP PASTOR POTASSIUM Early AM 04/13/2023 4:18 AM WORSHIP PASTOR SCAN-CARDIAC STRIP 04/12/2023 11 :50 PM WORSHIP PASTOR GLUCOSE METER Timed 04/12/2023 9:51 PM WORSHIP PASTOR POTASSIUM Timed 04/12/2023 8:25 PM WORSHIP PASTOR SCAN-CARDIAC STRIP 04/12/2023 7: 18 PM WORSHIP PASTOR GLUCOSE METER Timed 04/12/2023 4:31 PM WORSHIP PASTOR SCAN-CARDIAC STRIP 04/12/2023 3: 57 PM WORSHIP PASTOR POTASSIUM Timed 04/12/2023 1:17 PM WORSHIP PASTOR MAGNESIUM Timed 04/12/2023 1:17 PM WORSHIP PASTOR GLUCOSE METER Timed 04/12/2023 11:46 AM WORSHIP PASTOR ECHO TTE COMPLETE W CONTRAST Today 04/12/2023 10:01 AM WORSHIP PASTOR SCAN-CARDIAC STRIP 04/12/2023 7: 58 AM WORSHIP PASTOR GLUCOSE METER Timed 04/12/2023 7:48 AM WORSHIP PASTOR EKG 12 LEAD STAT 04/12/2023 6:12 AM WORSHIP PASTOR GLUCOSE METER Timed 04/12/2023 5:46 AM WORSHIP PASTOR PRO-BNP ENZO 04/12/2023 5:42 AM WORSHIP PASTOR BASIC METABOLIC PANEL Early AM 04/12/2023 5:42 AM WORSHIP PASTOR SCAN-CARDIAC STRIP 04/12/2023 5: 23 AM WORSHIP PASTOR SCAN-CARDIAC STRIP 04/12/2023 5: 13 AM WORSHIP PASTOR BLOOD GAS,VENOUS Today 04/12/2023 3:05 AM WORSHIP PASTOR TROPONIN T (HS) ONE TIME Timed 04/12/2023 3:05 AM WORSHIP PASTOR XR CHEST 1 VIEW PORTABLE STAT 04/12/2023 3:02 AM WORSHIP PASTOR EKG 12 LEAD STAT 04/12/2023 1:25 AM WORSHIP PASTOR TSH ENZO 04/12/2023 1:24 AM WORSHIP PASTOR HEMOGLOBIN A1C SCREENING ENZO 04/12/2023 1:24 AM WORSHIP PASTOR APTT STAT 04/12/2023 1:24 AM WORSHIP PASTOR FIBRINOGEN,QUANTITAT MACARENA STAT 04/12/2023 1:24 AM WORSHIP PASTOR HEPATIC FUNCTION PANEL STAT 04/12/2023 1:24 AM WORSHIP PASTOR TROPONIN T (HS) ACUTE W/2HR REFLEX STAT 04/12/2023 1:24 AM WORSHIP PASTOR PROTIME-INR STAT 04/12/2023 1:24 AM WORSHIP PASTOR CBC W PLT NO DIFF STAT 04/12/2023 1:2 4 AM WORSHIP PASTOR LACTATE VENOUS STAT 04/12/2023 1:24 AM WORSHIP PASTOR MAGNESIUM STAT 04/12/2023 1:24 AM WORSHIP PASTOR BASIC METABOLIC PANEL STAT 04/12/2023 1:24 AM WORSHIP PASTOR from Last 3 Months Results * (ABNORMAL) GLUCOSE METER (04/14/2023 7:34 AM WORSHIP PASTOR) Only the most recent of10 resultswithin the time period is included. GLUCOSE METER 123(H) 65 - 100 mg/dL 04/14/2023 7:51 AM [facility] Blood BLOOD SPECIMEN / Unknown 04/14/2023 7:34 AM WORSHIP PASTOR 04/14/2023 7:51 AM [facility] Scott PATEL CHEMISTRY [facility] SENDOUT INTERNAL ZIP [phone] [place] [id number] * (ABNORMAL) CBC W PLT NO DIFF (04/14/2023 5:16 AM [facility]) Only the most recent of2 resultswithin the time period is included. WHITE BLOOD COUNT 7.5 4.5 - 11.0 thou/cu mm 04/14/2023 5:38 AM [facility] RED BLOOD COUNT 3.50(L) 4.00 - 5.20 mil/cu mm 04/14/2023 5:38 AM [facility] HEMOGLOBIN 9.7(L) 12.0 - 16.0 g/dL 04/14/2023 5:38 AM [facility] HEMATOCRIT 28.8(L) 33.0 - 51.0 % 04/14/2023 5:38 AM [facility] MCV 82 80 - 100 fL 04/14/2023 5:38 AM [facility] MCH 27.7 26.0 - 34.0 pg 04/14/2023 5:38 AM [facility] MCHC 33.7 32.0 - 36.0 g/dL 04/14/2023 5:38 AM [facility] RDW 14.6 11.5 - 15.5 % 04/14/2023 5:38 AM [facility] PLATELET COUNT 201 140 - 440 thou/cu mm 04/14/2023 5:38 AM [facility] MPV 10.1 6.5 - 11.0 fL 04/14/2023 5:38 AM [facility] NRBC 0.0 % 04/14/2023 5:38 AM [facility] ABS NRBC 0.0 thou /cu mm 04/14/2023 5:38 AM [facility] Blood BLOOD SPECIMEN / Unknown Venipuncture / Unknown 04/14/2023 5:16 AM WORSHIP PASTOR 04/14/2023 5:35 AM WORSHIP PASTOR Richardson Segovia MD HEMATOLOGY [facility] SENDOUT [place] ZIP [phone] [place] [address] * MAGNESIUM (04/14/2023 5:16 AM WORSHIP PASTOR) Only the most recent of4 resultswithin the time period is included. Pathologist [facility] MAGNESIUM 1.9 1.6 - 2.4 mg/dL 04/14/2023 5:55 AM [facility] Blood BLOOD SPECIMEN / Unknown Venipuncture / Unknown 04/14/2023 5:16 AM WORSHIP PASTOR 04/14/2023 5:35 AM WORSHIP PASTOR Richardson Segovia MD CHEMISTRY Performing Organization Address [facility]/ZIP Co de Phone Number [facility] SENDOUT INTERNAL ZIP [phone] [place] [phone] * (ABNORMAL) BASIC METABOLIC PANEL (04/14/2023 5:16 AM WORSHIP PASTOR) Only the most recent of3 resultswithin the time period is included. SODIUM 130(L) 136 - 145 mmol/L 04/14/2023 5:57 AM [facility] POTASSIUM 4.2 3.5 - 5.1 mmol/L 04/14/2023 5:57 AM [facility] CHLORIDE 97(L) 98 - 107 mmol/L 04/14/2023 5:57 AM [facility] CO2,TOTAL 24 22 - 29 mmol/L 04/14/2023 5:57 AM [facility] ANION GAP 9 5 - 18 04/14/2023 5:57 AM [facility] GLUCOSE 133(H) 70 - 99 mg/dL 04/14/2023 5:57 AM [facility] CALCIUM 9.4 8.8 - 10.2 mg/dL 04/14/2023 5:57 AM [facility] BUN 17 8 - 23 mg/dL 04/14/2023 5:57 AM [facility] CREATININE 0.97(H) 0.50 - 0.90 mg/dL 04/14/2023 5:57 AM WORSHIP PASTOR [facility] BUN/CREAT RATIO 18 10 - 20 5:57 AM WORSHIP PASTOR [facility] eGFR 66(L) >90 mL/min/1.7 3m2 04/14/2023 5:57 AM WORSHIP PASTOR [facility] Comment:As of 2021, eG FR is calculated by the CKD-EPI creatinine equation without race adjustment. ??eGFR can be influenced by muscle mass, exercise, and diet. ??The reported eGFR is an estimation only and is only applicable if the renal function is stable. Blood BLOOD SPECIMEN / Unknown Venipuncture / Unknown 04/14/2023 5:16 AM WORSHIP PASTOR 04/14/2023 5:35 AM WORSHIP PASTOR Richardson Segovia MD CHEMISTRY [facility] SENDOUT INTERNAL ZIP [phone] [place] [phone] * CT HEAD BRAIN WO (04/13/2023 4:11 PM WORSHIP PASTOR) Anatomical Region Laterality Modality HEAD, BRAIN Computed Tomogra phy 04/13/2023 4:11 PM WORSHIP PASTOR Impressions 04/13/2023 4:15 PM WORSHIP PASTOR 1. ??No CT evidence for acute intracranial process. 2. ??Brain atrophy and presumed chronic microvascular ischemic changes as above. Narrative 04/13/2023 4:15 PM WORSHIP PASTOR For Patients: As a result of the 21st Century Cures Act, medical imaging exams and procedure reports are released immediately into your electronic medical record. You may view this report before your referring provider. If you have questions, please contact your health care provider. EXAM: CT HEAD BRAIN WO LOCATION: [facility] DATE: 04/13/2023 INDICATION: Head trauma, moderate-severe COMPARISON: None. TECHNIQUE: Routine CT Head without IV contrast. Multiplanar reformats. Dose reduction techniques were used. FINDINGS: INTRACRANIAL CONTENTS: No intracranial hemorrhage, extraaxial collection, or mass effect. ??No CT evidence of acute infarct. Mild to moderate presumed chronic small vessel ischemic changes. Mild generalized volume loss. No hydrocephalus. VISUALIZED ORBITS/SINUSES/MASTOIDS: No intraorbital abnormality. No significant paranasal sinus mucosal disease. Scattered fluid/membrane thickening in the right mastoid air cells. No apparent mass in the posterior nasopharynx or skull base. BONES/SOFT TISSUES: No acute abnormality. Procedure Note Cristobal Hopkins MD - 04/13/2023 For Patients: As a result of the Cures Act, medical imagingexams and procedure reports are released immediately into your electronicmedical record. You may view this report before your referring provider.If you have questions, please contact your health care provider. EXAM: CT HEAD BRAIN WO LOCATION: [facility] DATE: 04/13/2023 INDICATION: Head trauma, moderate-severe COMPARISON: None. TECHNIQUE: Routine CT Head without IV contrast. Multiplanar reformats.Dose reduction techniques were used. FINDINGS: INTRACRANIAL CONTENTS: No intracranial hemorrhage, extraaxial collection,or mass effect. No CT evidence of acute infarct. Mild to moderatepresumed chronic small vessel ischemic changes. Mild generalized volumeloss. No hydrocephalus. VISUALIZED ORBITS/SINUSES/MASTOIDS: No intraorbital abnormality. Nosignificant paranasal sinus mucosal disease. Scattered fluid/membranethickening in the right mastoid air cells. No apparent mass in theposterior nasopharynx or skull base. BONES/SOFT TISSUES: No acute abnormality. IMPRESSION: 1. No CT evidence for acute intracranial process. 2. Brain atrophy and presumed chronic microvascular ischemic changes asabove. Richardson Segovia MD CT * POTASSIUM (04/13/2023 9:34 AM WORSHIP PASTOR) Only the most recent of4 resultswithin the time period is included. POTASSIUM 4.3 3.5 - 5.1 mmol/L 04/13/2023 10:10 AM WORSHIP PASTOR [facility] Blood BLOOD SPECIMEN / Unknown Non-Lab Venipuncture / Unknown 04/13/2023 9:34 AM WORSHIP PASTOR 04/13/2023 9:53 AM WORSHIP PASTOR Richardson Segovia MD CHEMISTRY [facility] SENDOUT [place] ZIP [phone] [place] [address] * SCAN-CARDIAC STRIP (04/13/2023 8:00 AM WORSHIP PASTOR) Scanner OTHER * (ABNORMAL) CREATININE (04/13/2023 4:18 AM WORSHIP PASTOR) eGFR 60(L) >90 mL/min/1.7 3m2 04/13/2023 8:23 AM WORSHIP PASTOR [facility] Comment:As of 2021, eG FR is calculated by the CKD-EPI creatinine equation without race adjustment. ??eGFR can be influenced by muscle mass, exercise, and diet. ??The reported eGFR is an estimation only and is only applicable if the renal function is stable. CREATININE 1.06(H) 0.50 - 0.90 mg/dL 04/13/2023 8:23 AM WORSHIP PASTOR [facility] Blood BLOOD SPECIMEN / Unknown Non-Lab Venipuncture / Unknown 04/13/2023 4:18 AM WORSHIP PASTOR 04/13/2023 4:29 AM WORSHIP PASTOR Richardson Segovia MD CHEMISTRY [facility] SENDOUT INTER[place] ZIP [phone] [place] [address] * SCAN-CARDIAC STRIP (04/12/2023 11:50 PM WORSHIP PASTOR) Scanner OTHER * SCAN-CARDIAC STRIP (04/12/2023 7:18 PM WORSHIP PASTOR) Scanner OTHER * SCAN-CARDIAC STRIP (04/12/2023 3:57 PM WORSHIP PASTOR) Scanner OTHER * ECHO TTE COMPLETE W CONTRAST (04/12/2023 10:01 AM WORSHIP PASTOR) EJECTION FRACTION 60-65% PROSOLV Anatomical Region Laterality Modality Ultrasound 04/12/2023 8:43 AM WORSHIP PASTOR Narrative 04/12/2023 1:51 PM WORSHIP PASTOR [address], [place] [address] Main: [email or web address] ? Transthoracic Echo Report WOO RAYA Marciaian ID: [id number] Age: 63 : 1960 Ordering Provider: STEW BRUNO Exam Date: 04/12/2023 08:43 Gender: F Cdl Bulk Driver: AKIN Height: 62 in BSA: 1.55 m?? BP: 111 / 72 Weight: 123 lbs BMI: 22.5 kg/m?? Location: Inpatient (Portable) Rhythm: Irregular Procedure Components: 2D imaging with contrast, Color Doppler, Spectral Doppler Indications: Acute myocardial infarction, Acute ID unspecified Technical Quality: Fair Contrast: Definity Constrast Dose (ml): .3 [facility]#: [id number] Final Conclusion 1. Normal left ventricular systolic function. Calculated left ventricular ejection fraction (modified Gtz technique) is 62 %. 2. No regional wall motion abnormalities. 3. Normal right ventricular chamber size. Normal right ventricular systolic function. 4. No significant valvular heart disease. There were no prior studies available for comparison. Estimated EF: 60-65% FINDINGS Left Ventricle Normal left ventricular chamber size. Normal left ventricular wall thickness. Normal left ventricular systolic function. Calculated left ventricular ejection fraction (modified Gtz technique) is 62 %. No regional wall motion abnormalities. Diastolic Function Indeterminate left ventricular diastolic function. Right Ventricle Normal right ventricular chamber size. Normal right ventricular systolic function. Normal TAPSE consistent with normal right ventricular longitudinal systolic function. Estimated right ventricular systolic pressure is 25 mmHg plus right atrial pressure. Left Atrium Normal left atrial size. Left atrial volume index is 31 ml/m??. Right Atrium Normal right atrial size. Atrial Septum Atrial septum was not well visualized. No evidence of inter-atrial shunt by color flow Doppler. Aortic Valve Normal trileaflet aortic valve. No aortic valve stenosis. No aortic valve regurgitation. Mitral Valve Normal mitral valve. No mitral valve stenosis. Trivial mitral valve regurgitation. Tricuspid Valve Normal tricuspid valve. No tricuspid valve stenosis. Trivial tricuspid valve regurgitation. Pulmonic Valve Pulmonary valve was not well visualized. Normal pulmonary valve systolic Doppler profile. Trivial pulmonary valve regurgitation. Pericardium No pericardial effusion. Aorta Aortic sinus of Valsalva is normal in size (2.9 cm, ZScore = -1). Normal ascending aorta dimension (2.5 cm). Inferior Vena Cava Normal inferior vena cava size. MEASUREMENTS ??(Male / Female) Normal Values 2D MEASUREMENTS AND LV FUNCTION IVS Diastolic Thickness ? 0.635 cm ?< 1.1 cm / < 1.0 cm LV Diastolic Diameter PLAX ?4.24 cm ? 4.2 - 5.9 / 3.9 - 5.3 cm LV Diastolic Diameter Index ? 2.73 cm/m?? LVPW Diastolic Thickness ?0.685 cm ?< 1.1 cm / < 1.0 cm LV Systolic Diameter PLAX ? 2.93 cm LV Systolic Diameter Index ?1.88 cm/m?? LVOT Diameter ? 1.85 cm LVOT Stroke Volume ?58.1 ml LV Ejection Fraction MOD BP ? 62.3 % ?>= 55 ??% LA Volume MOD BP ?47.6 ml LA Volume Index MOD BP ?30.6 ml/m?16 - 34 ml/m?? RV Diastolic Basal Diameter ? 3.11 cm RV Diastolic Mid Diameter ? 2.22 cm LV Mass ? 80.2 g LV Mass Index ? 51.3 g/m?? Sinuses of Valsalva Diameter(d) ?? 2.9 cm Ascending Aorta Diameter(s) ? 2.5 cm IVC Diameter Expiration ? 1.96 cm Ascending Aorta Index ? 1.61 cm/m?? M MODE TAPSE MM ?1.87 cm DIASTOLOGY Mitral E Point Velocity ? 1.43 m/sec ?0.70 - 1.02 m/sec LV E' Lateral Velocity ?0.0827 m/sec Mitral E to LV E' Lateral Ratio ?? 17.3 LV E' Septal Velocity ? 0.0917 m/sec Mitral E to LV E' Septal Ratio ?15.6 AORTIC VALVE AV Peak Velocity ?1.74 m/sec ?< 2.0 m/sec AV Peak Gradient ?12.1 mmHg AV Mean Gradient ?6.4 mmHg AV Velocity Time Integral ? 26.8 cm LVOT Peak Velocity ?1.49 m/sec LVOT Velocity Time Integral ? 21.6 cm AV Area Cont Eq vti ? 2.17 cm?? AV Area Cont Eq pk ?2.3 cm?? AV Dimensionless Index ?0.808 TRICUSPID VALVE AND ESTIMATED PRESSURES TR Peak Velocity ?2.48 m/sec TR Peak Gradient ?24.5 mmHg Right Atrial Pressure ? 3 mmHg Right Ventricular Systolic Press ??27.5 mmHg HCM DATA LVOT ANGIE (r) ?8.83 mmHg Aortic Root ZScore: -1.00 Gary Rain MD [facility] Accredited Site (Electronically Signed) Final Date: 12 April 2023 13:51 ICD-10 Codes: 410.90 Procedure Note Gary Rain MD - 04/12/2023 [place] [address] Main: [email or web address] Transthoracic Echo Report RAYAMORGAN RAYNARGIS Excellian ID: [id number] Age: 63 : 1960 Ordering Provider:STEW BRUNO Exam Date: 04/12/2023 08:43 Gender: F Cdl Bulk Driver: AKIN Height: 62 in BSA: 1.55 m?? BP: 111 / 72 Weight: 123 lbs BMI: 22.5 kg/m?? Location: Inpatient (Portable) Rhythm: Irregular Procedure Components: 2D imaging with contrast, Color Doppler, SpectralDoppler Indications: Acute myocardial infarction, Acute ID unspecified Technical Quality: Fair Contrast: Definity Constrast Dose (ml): .3 [facility]#: [id number] Final Conclusion 1. Normal left ventricular systolic function. Calculated left ventricularejection fraction (modified Gtz technique) is 62 %. 2. No regional wall motion abnormalities. 3. Normal right ventricular chamber size. Normal right ventricularsystolic function. 4. No significant valvular heart disease. There were no prior studies available for comparison. Estimated EF: 60-65% FINDINGS Left Ventricle Normal left ventricular chamber size. Normal leftventricular wall thickness. Normal left ventricular systolic function. Calculated left ventricular ejection fraction (modified Simpsontechnique) is 62 %. No regional wall motion abnormalities. Diastolic Function Indeterminate left ventricular diastolic function. Right Ventricle Normal right ventricular chamber size. Normal rightventricular systolic function. Normal TAPSE consistent with normal right ventricular longitudinal systolic function. Estimated rightventricular systolic pressure is 25 mmHg plus right atrial pressure. Left Atrium Normal left atrial size. Left atrial volume index is 31ml/m??. Right Atrium Normal right atrial size. Atrial Septum Atrial septum was not well visualized. No evidence ofinter-atrial shunt by color flow Doppler. Aortic Valve Normal trileaflet aortic valve. No aortic valve stenosis. Noaortic valve regurgitation. Mitral Valve Normal mitral valve. No mitral valve stenosis. Trivialmitral valve regurgitation. Tricuspid Valve Normal tricuspid valve. No tricuspid valve stenosis.Trivial tricuspid valve regurgitation. Pulmonic Valve Pulmonary valve was not well visualized. Normal pulmonaryvalve systolic Doppler profile. Trivial pulmonary valve regurgitation. Pericardium No pericardial effusion. Aorta Aortic sinus of Valsalva is normal in size (2.9 cm, ZScore = -1).Normal ascending aorta dimension (2.5 cm). Inferior Vena Cava Normal inferior vena cava size. MEASUREMENTS (Male / Female) Normal Values 2D MEASUREMENTS AND LV FUNCTION IVS Diastolic Thickness 0.635 cm < 1.1 cm / < 1.0cm LV Diastolic Diameter PLAX 4.24 cm 4.2 - 5.9 / 3.9 -5.3 cm LV Diastolic Diameter Index 2.73 cm/m?? LVPW Diastolic Thickness 0.685 cm < 1.1 cm / < 1.0cm LV Systolic Diameter PLAX 2.93 cm LV Systolic Diameter Index 1.88 cm/m?? LVOT Diameter 1.85 cm LVOT Stroke Volume 58.1 ml LV Ejection Fraction MOD BP 62.3 % >= 55 % LA Volume MOD BP 47.6 ml LA Volume Index MOD BP 30.6 ml/m?? 16 - 34 ml/m?? RV Diastolic Basal Diameter 3.11 cm RV Diastolic Mid Diameter 2.22 cm LV Mass 80.2 g LV Mass Index 51.3 g/m?? Sinuses of Valsalva Diameter(d) 2.9 cm Ascending Aorta Diameter(s) 2.5 cm IVC Diameter Expiration 1.96 cm Ascending Aorta Index 1.61 cm/m?? M MODE TAPSE MM 1.87 cm DIASTOLOGY Mitral E Point Velocity 1.43 m/sec 0.70 - 1.02m/sec LV E' Lateral Velocity 0.0827 m/sec Mitral E to LV E' Lateral Ratio 17.3 LV E' Septal Velocity 0.0917 m/sec Mitral E to LV E' Septal Ratio 15.6 AORTIC VALVE AV Peak Velocity 1.74 m/sec < 2.0 m/sec AV Peak Gradient 12.1 mmHg AV Mean Gradient 6.4 mmHg AV Velocity Time Integral 26.8 cm LVOT Peak Velocity 1.49 m/sec LVOT Velocity Time Integral 21.6 cm AV Area Cont Eq vti 2.17 cm?? AV Area Cont Eq pk 2.3 cm?? AV Dimensionless Index 0.808 TRICUSPID VALVE AND ESTIMATED PRESSURES TR Peak Velocity 2.48 m/sec TR Peak Gradient 24.5 mmHg Right Atrial Pressure 3 mmHg Right Ventricular Systolic Press 27.5 mmHg HCM DATA LVOT ANGIE (r) 8.83 mmHg Aortic Root ZScore: -1.00 Gary Rain MD [facility] Accredited Site (Electronically Signed) Final Date: 12 April 2023 13:51 ICD-10 Codes: 410.90 Stew Bruno MD ECHO ORD * SCAN-CARDIAC STRIP (04/12/2023 7:58 AM WORSHIP PASTOR) Scanner OTHER * EKG 12 LEAD (04/12/2023 6:12 AM WORSHIP PASTOR) Only the most recent of2 resultswithin the time period is included. Interpretation Sinus rhythm with Premature atrial complexes in a pattern of bigeminy Nonspecific T wave abnormality Abnormal ECG When compared with ECG of 12-APR-2023 01:25, (Unconfirmed) Sinus rhythm has replaced Junctional rhythm T wave inversion no longer evident in Inferior leads BEYOND NOW Ventricular Rate 64 BPM BEYOND NOW Atrial Rate 64 BPM BEYOND NOW P-R Interval 168 ms BEYOND NOW QRS Duration 86 ms BEYOND NOW QT 418 ms BEYOND NOW QTc 431 ms BEYOND NOW P [place] degrees BEYOND NOW R [place] 66 degrees BEYOND NOW T [place] 62 degrees BEYOND NOW 04/12/2023 6:12 AM WORSHIP PASTOR 04/12/2023 3:17 PM WORSHIP PASTOR Stew Bruno MD EKG ORD BEYOND NOW [place], [place] * (ABNORMAL) PRO-BNP (04/12/2023 5:42 AM [facility]) PRO-BNP 3,395(H) <125 pg/mL 04/12/2023 6:32 AM [facility] Blood BLOOD SPECIMEN / Unknown Non-Lab Venipuncture / Unknown 04/12/2023 5:42 AM WORSHIP PASTOR 04/12/2023 5:48 AM WORSHIP PASTOR Narrative [facility] - 04/12/2023 6:32 AM WORSHIP PASTOR The following cut-points have been suggested for the use of proBNP for the diagnostic evaluation of heart failure (HF) in patient with acute dyspnea. Patients with eGFR >= 60 Diagnosis (rule in CHF) ? <50 Years Old ?450 pg/mL 50 - 75 Years Old ?900 pg/mL >75 Years Old ? 1800 pg/mL Exclusion (rule out CHF) Age Independent ?300 pg/mL A cutoff of 1200 pg/mL for patients with an eGFR <60 yields a diagnostic sensitivity of 89% and specificity of 72% for acute congestive heart failure. ? Stew Bruno MD SEND OUTS [facility] SENDOUT INTERNAL ZIP [phone] [place] [address] * SCAN-CARDIAC STRIP (04/12/2023 5:23 AM WORSHIP PASTOR) Scanner OTHER * SCAN-CARDIAC STRIP (04/12/2023 5:13 AM WORSHIP PASTOR) Scanner OTHER * (ABNORMAL) TROPONIN T (HS) ONE TIME (04/12/2023 3:05 AM WORSHIP PASTOR) TROPONIN T HS 40(H) 6-10 ng/L ng/L 04/12/2023 3:36 AM [facility] Blood BLOOD SPECIMEN / Unknown Non-Lab Venipuncture / Unknown 04/12/2023 3:05 AM WORSHIP PASTOR 04/12/2023 3:15 AM WORSHIP PASTOR Stew Bruno MD CHEMISTRY [facility] SENDOUT INTERNAL ZIP [phone] [place] [address] * (ABNORMAL) BLOOD GAS,VENOUS (04/12/2023 3:05 AM [facility]) PH, VENOUS 7.35 7.32 - 7.43 04/12/2023 3:18 AM [facility] PCO2, VENOUS 38(L) 41 - 51 mmHg 04/12/2023 3:18 AM [facility] PO2, VENOUS 32(L) 35 - 40 mmHg 04/12/2023 3:18 AM [facility] HCO3,VENOUS 21(L) 22 - 29 mmol/L 04/12/2023 3:18 AM [facility] BASE EXCESS, VENOUS, POCT -4.2(L) -2.0 - 3.0 04/12/2023 3:18 AM [facility] O2 SATURATION, VENOUS 56(L) 70 - 75 % 04/12/2023 3:18 AM [facility] INSPIRED O2 55 04/12/2023 3:18 AM [facility] Comment:Unit of Measure: Lit ers (L) if <=20; Percent (%) if >20 PATIENT TEMPERATURE 36.8 Degrees C 04/12/2023 3:18 AM [facility] Blood VENOUS BLOOD SPECIMEN / Unknown Non-Lab Venipuncture / Unknown 04/12/2023 3:05 AM WORSHIP PASTOR 04/12/2023 3:15 AM WORSHIP PASTOR Stew Bruno MD CHEMISTRY [facility] SENDOUT INTERNAL ZIP [phone] [place] [address] * XR CHEST 1 VIEW PORTABLE (04/12/2023 3:02 AM WORSHIP PASTOR) Anatomical Region Laterality Modality HEART, THORAX, CHEST Computed Ra diography 04/12/2023 3:02 AM WORSHIP PASTOR Impressions 04/12/2023 3:04 AM WORSHIP PASTOR Right IJ since venous catheter with tip in good position low SVC. No pneumothorax. Mild cardiac enlargement. Normal pulmonary vascularity. Aortic calcification. Minimal degenerative changes in the spine and both shoulders. Degenerative changes right shoulder. Narrative 04/12/2023 3:04 AM WORSHIP PASTOR For Patients: As a result of the Cures Act, medical imaging exams and procedure reports are released immediately into your electronic medical record. You may view this report before your referring provider. If you have questions, please contact your health care provider. EXAM: XR CHEST 1 VIEW PORTABLE LOCATION: [facility] MEDICAL [facility]AG[facility] DATE: 04/12/2023 INDICATION: Line placement COMPARISON: 04/11/2023 at 4:56 PM Procedure Note Papi Castle MD - 04/12/2023 For Patients: As a result of the Cures Act, medical imagingexams and procedure reports are released immediately into your electronicmedical record. You may view this report before your referring provider.If you have questions, please contact your health care provider. EXAM: XR CHEST 1 VIEW PORTABLE LOCATION: [facility] MEDICAL [facility]AG[facility] DATE: 04/12/2023 INDICATION: Line placement COMPARISON: 04/11/2023 at 4:56 PM IMPRESSION: Right IJ since venous catheter with tip in good position low SVC. Nopneumothorax. Mild cardiac enlargement. Normal pulmonary vascularity.Aortic calcification. Minimal degenerative changes in the spine and bothshoulders. Degenerative changes right shoulder. Stew Bruno MD GENERAL IMAGING * (ABNORMAL) TROPONIN T (HS) ACUTE W/2HR REFLEX (04/12/2023 1:24 AM WORSHIP PASTOR) TROPONIN T HS 30(H) 6-10 ng/L ng/L 04/12/2023 1:58 AM WORSHIP PASTOR [facility] Blood BLOOD SPECIMEN / Unknown Venipuncture / Unknown 04/12/2023 1:24 AM WORSHIP PASTOR 04/12/2023 1:[address] [facility] - 04/12/2023 1:58 AM WORSHIP PASTOR hs-cTnT (Elecsys Troponin T Gen 5) concentration (s) above the sex-specific 99th percentile (16 ng/L or greater for males or 11 ng/L or greater for females) are indicative of myocardial injury. If initial hs-cTnT <=100 ng/L at presentation, a 0h/2h ABSOLUTE (ng/L) delta change (rising or falling) of >=10 ng/L suggests a significant change, whereas a 0h/2h delta change <=3 ng/L suggests no significant change. If initial hs-cTnT >100 ng/L at presentation, a 0h/2h/ RELATIVE (percent, %) delta change of 20% is suggested to distinguish patients with acute vs. chronic myocardial injury. There are multiple etiologies that can cause hs-cTnT increases above the 99th percentile (myocardial injury) other than acute myocardial infarction. Clinical context and careful clinical evaluation are critical for diagnosis and risk-stratification. The diagnosis of acute myocardial infarction requires a rising and/or falling pattern in hs-cTnT concentrations with at least one value above the sex-specific 99th percentile PLUS at least one of the following clinical criteria: ischemic symptoms, new or presumed new significant ST-T wave changes or new LBBB, development of pathological Q waves, imaging evidence of new loss of viable myocardium or new regional wall motion abnormality, or identification of intracoronary atherothrombosis or an acute angiographic culprit on coronary angiography. In appropriate low-risk patients with a non-ischemic electrocardiogram without active chest pain with a symptom onset >3-hours without recurrence, a single initial hs-cTnT<6 ng/L identifies patient with a very low risk in emergency department patient population. Stew Bruno MD CHEMISTRY [facility] SENDOUT INTERNAL ZIP [phone] [place] [address] * (ABNORMAL) HEMOGLOBIN A1C SCREENING (04/12/2023 1:24 AM WORSHIP PASTOR) HEMOGLOBIN A1C SCREENING 7.1(H) <=6.4 % 04/12/2023 8:23 AM WORSHIP PASTOR [facility] Blood BLOOD SPECIMEN / Unknown Venipuncture / Unknown 04/12/2023 1:24 AM WORSHIP PASTOR 04/12/2023 1:34 AM WORSHIP PASTOR Narrative [facility] - 04/12/2023 8:23 AM WORSHIP PASTOR ? (<5.7%) ?Normal ? (5.7% to 6.4%) ? Indicates prediabetes ? (>=6.5%) ? Confirms diabetes Falsely low levels may be seen with: Recent Transfusion, Recent Significant Blood Loss, Hemolytic Diseases, or Falsely elevated levels may be seen with: Untreated Anemias, Splenectomy Jean Abrams MD CHEMISTRY Performing Organization Address [facility] de Phone Number [facility] SENDOUT INTERNAL ZIP [phone] [place] [phone] * LACTATE VENOUS (04/12/2023 1:24 AM WORSHIP PASTOR) Pathologist [facility] LACTATE,VENOUS 2.0 0.5 - 2.0 mmol/L 04/12/2023 1:56 AM [facility] Blood BLOOD SPECIMEN / Unknown Venipuncture / Unknown 04/12/2023 1:24 AM WORSHIP PASTOR 04/12/2023 1:34 AM WORSHIP PASTOR Stew Bruno MD CHEMISTRY [facility] SENDOUT INTERNAL ZIP [phone] [place] [address] * TSH (04/12/2023 1:24 AM WORSHIP PASTOR) Pathologist [facility] TSH 3.10 0.27 - 4.20 uIU/mL 04/12/2023 2:17 AM [facility] Blood BLOOD SPECIMEN / Unknown Venipuncture / Unknown 04/12/2023 1:24 AM WORSHIP PASTOR 04/12/2023 1:34 AM WORSHIP PASTOR [facility] - 04/12/2023 2:17 AM WORSHIP PASTOR In Adults, TSH values between 5.00 and 10.00 uIU/ml do not necessarily indicate the presence of Hypothyroidism. Correlation with clinical findings such as presence of goiter and/or Thyroperoxidase (TPO) Antibody may be helpful. For more information please refer to MYKE 2004; 291: 228-238. Jean Abrams MD CHEMISTRY Performing Organization Address [facility]/ZIP Co de Phone Number [facility] SENDOUT INTERNAL ZIP [phone] [place] [address] * (ABNORMAL) APTT (04/12/2023 1:24 AM WORSHIP PASTOR) APTT 45(H) 29 - 36 sec 04/12/2023 1:50 AM WORSHIP PASTOR [facility] Blood BLOOD SPECIMEN / Unknown Venipuncture / Unknown 04/12/2023 1:24 AM WORSHIP PASTOR 04/12/2023 1:34 AM WORSHIP PASTOR [facility] - 04/12/2023 1:50 AM WORSHIP PASTOR Therapeutic Range: 57-100 seconds Stew Bruno MD HEMATOLOGY Performing Organization Address [facility]/ZIP Co de Phone Number [facility] SENDOUT INTERNAL ZIP [phone] [place] [address] * (ABNORMAL) Protime- INR (04/12/2023 1:24 AM WORSHIP PASTOR) INR 1.4(H) <1.3 04/12/2023 1:50 AM WORSHIP PASTOR [facility] PROTIME 15.3(H) 10.3 - 12.3 sec 04/12/2023 1:50 AM WORSHIP PASTOR [facility] Blood BLOOD SPECIMEN / Unknown Venipuncture / Unknown 04/12/2023 1:24 AM WORSHIP PASTOR 04/12/2023 1:[address] [facility] - 04/12/2023 1:50 AM WORSHIP PASTOR ?Therapeutic Range 2.0-3.0 for most anticoagulated patients 2.5-3.5 or 4.0 for high risk patients The INR is only used for patients on stable oral anticoagulant therapy. It makes no significant contribution to the diagnosis or treatment of patients whose Protime is prolonged for other reasons. INR results are increased when heparin levels exceed 1.0 U/mL, which corresponds to an aPTT >125 seconds if the patient is on UFH. Stew Bruno MD HEMATOLOGY Performing Organization Address [facility]/ZIP Co de Phone Number [facility] SENDOUT INTERNAL ZIP [phone] [place] [address] * (ABNORMAL) Fibrinogen, Quant (04/12/2023 1:24 AM WORSHIP PASTOR) FIBRINOGEN,SHAUNA NTITATIVE 547(H) 193 - 401 mg/dL 04/12/2023 1:50 AM WORSHIP PASTOR [facility] Blood BLOOD SPECIMEN / Unknown Venipuncture / Unknown 04/12/2023 1:24 AM WORSHIP PASTOR 04/12/2023 1:34 AM WORSHIP PASTOR Stew Bruno MD HEMATOLOGY Performing Organization Address [facility]/ZIP Co de Phone Number [facility] SENDOUT INTERNAL ZIP [phone] [place] [address] * (ABNORMAL) Hepatic Function Panel (04/12/2023 1:24 AM WORSHIP PASTOR) ALBUMIN 3.4(L) 4.0 - 4.9 g/dL 04/12/2023 1:58 AM WORSHIP PASTOR [facility] PROTEIN,TOTAL 6.8 6.0 - 8.0 g/dL 04/12/2023 1:58 AM [facility] BILIRUBIN,TOTAL 1.0 0.0 - 1.2 mg/dL 04/12/2023 1:58 AM [facility] BILIRUBIN,DIRECT 0.7(H) 0.0 - 0.3 mg/dL 04/12/2023 1:58 AM WORSHIP PASTOR [facility] BILIRUBIN,INDIRE CT 0.3 0.2 - 0.8 mg/dL 04/12/2023 1:58 AM [facility] ALK PHOSPHATASE 66 35 - 104 IU/L 04/12/2023 1:58 AM [facility] ALT (SGPT) 62(H) 10 - 35 IU/L 04/12/2023 1:58 AM [facility] AST (SGOT) 45(H) 10 - 35 IU/L 04/12/2023 1:58 AM WORSHIP PASTOR [facility] Blood BLOOD SPECIMEN / Unknown Venipuncture / Unknown 04/12/2023 1:24 AM WORSHIP PASTOR 04/12/2023 1:34 AM WORSHIP PASTOR Stew Bruno MD CHEMISTRY [facility] SENDOUT INTERNAL [address] [phone] [place] [address] from Last 3 Months Advance Directives Latest Code Status on File Code Status Date Activated Date Inactivated Comments Full Code 04/12/2023 1:45 AM Question Answer Comments Code Status Discussion: Reviewed Preferences Code Status History Code Status Date Activated Date Inactivated Comments Full Code 05/12/2010 3:45 PM 05/14/2010 6:33 PM Care Teams Cdl Bulk Driver Relationship Specialty Start Date End Date Sumit Walter MD PCP - General Family Practice 05/12/10
--- OUTSIDE RECORDS SUMMARY | 2023-04-14 09:12 | XMS_ITS | Encounter Summary ---
Author Name Unknown Organization [facility] Address [address], [place] [address] Care Team Providers Care Multifold Operator Name Role Phone Needs Pcp, Assignment Primary Care Provider Encounter Details Date Type Department Care Team Description 04/22/2022 Notes/Orders [facility] [address] [facility] [address] Amrita Moore AU.D. [address] [place] [address] Bilateral sensorineural hearing loss (Primary Dx) Social [...] bilateral documented in this encounter Care Teams Multifold Operator Relationship Specialty Start Date End Date Needs Pcp, [place] [address] PCP - General 12/13/14 documented as of this encounter
--- OUTSIDE RECORDS SUMMARY | 2023-04-14 09:12 | XMS_ITS | Encounter Summary ---
Author Name Unknown Organization [facility] Address [address], [place] [address] Care Team Providers Care Exterior Designer Name Role Phone Needs Pcp, Assignment Primary Care Provider [phone] Encounter Details Date Type Department Care Team Description 04/17/2022 Notes/Orders [facility] [address] Audiology [address] [facility] [address] Amrita Moore AU.D. [address] [place] [address] Bilateral sensorineural hearing loss (Primary Dx) Social [...] bilateral documented in this encounter Care Teams Exterior Designer Relationship Specialty Start Date End Date Needs Pcp, [place] [address] PCP - General 12/13/14 documented as of this encounter
--- OUTSIDE RECORDS SUMMARY | 2023-04-14 09:12 | XMS_ITS | Encounter Summary ---
Author Name Unknown Organization [facility] Address [address], [place] [address] Care Team Providers Care Cattyman Name Role Phone Needs Pcp, Assignment Primary Care Provider Encounter Details Date Type Department Care Team Description 07/22/2022 Notes/Orders [facility] [address] Audiology [address] [place] [address] Amrita Moore AU.D. [address] [place] [address] Bilateral sensorineural hearing loss (Primary Dx) Social [...] bilateral documented in this encounter Care Teams Cattyman Relationship Specialty Start Date End Date Needs Pcp, [place] [address] PCP - General 12/13/14 documented as of this encounter
--- OUTSIDE RECORDS SUMMARY | 2023-04-14 09:12 | XMS_ITS | Encounter Summary ---
Author Name Unknown Organization [facility] Address [address] [place] [address] Care Team Providers Care Dumpster Driver Name Role Phone Needs Pcp, Assignment Primary Care Provider Encounter Details Date Type Department Care Team Description 11/25/2022 Notes/Orders [facility] [address] [place] [phone] Antonia Bryan AUDonny [address] [place] [address] Bilateral sensorineural hearing loss (Primary Dx) Social [...] bilateral documented in this encounter Care Teams Dumpster Driver Relationship Specialty Start Date End Date Needs Pcp, Assignment [place], [place] [id number] PCP - General 12/13/14 documented as of this encounter
== END 2023-04-11 23:31 | disposition home or self-care (01) ==
LOC: AMB 04-14 09:09
PROVIDERS: PCP Family Medicine; Visit Provider Internal Medicine
DX: A41.9 Sepsis, unspecified organism (principal); J96.01 Acute respiratory failure with hypoxia
CPT/HCPCS: A0425; A0434

== ENCOUNTER 2023-06-27 07:52 | Outpatient (CLI) | payer MEDICARE, MEDICAID, SELFPAY ==
--- OUTSIDE RECORDS SUMMARY | 2023-06-27 07:55 | XMS_ITS | Encounter Summary ---
Author Name Unknown Organization [facility] Address [address] [place] [address] Care Team Providers Care History Faculty Member Name Role Phone Gertrude Perez MD Primary Care Provider Encounter Details Date Type Department Care Team Description 05/07/2023 Documentation Only [facility] [address] [place] [address] Yahir Adam [address] [place] [address] Social History Tobacco Use Types Packs/Day Years Used Date Smoking Tobacco: Never Assessed Sex and Gender Information Value Date Recorded Sex Assigned at Not on file Gender Identity Not on file Sexual Orientation Not on file documented as of this encounter Plan of Treatment Upcoming Encounters Date Type Department Care Team Description 07/12/2023 Orders Only [facility] [place] [address] [place] [address] Amy Jimenez, EGG PRODUCER-LANDSCAPING SPECIALIST [address] [place] [phone] Acute injury of kidney documented as of this encounter Procedures Procedure Name Priority Date/Time Associated Diagnosis Comments RENAL FUNCTION PANEL Routine 04/29/2023 RENAL FUNCTION PANEL Routine 04/27/2023 COMPREHENSIVE METABOLIC PANEL (CMP) (EXTERNAL LAB ENTRY) Routine 04/22/2023 CBC Routine 04/22/2023 documented in this encounter Results * (ABNORMAL) Renal Function Panel (04/29/2023) Glucose 95 mg/dL [facility] BUN 27(H) mg/dL [facility] Creatinine 2.95(H) mg/dL [facility] BUN/Creatinine Ratio 9(L) [facility] Sodium 141 mEq/L [facility] Potassium 4.3 mEq/L [facility] Chloride 105 [facility] Carbon Dioxide 23 mmol/L [facility] Calcium 10.1 mg/dL [facility] Phosphorus, Serum 3.9 mg/dL [facility] Albumin (Blood) 3.7(L) g/dL [facility] eGFR 17(L) [facility] Blood (Blood, Venous) 04/29/2023 Historical Provider LAB BLOOD ORDERAB LES [facility] * (ABNORMAL) Renal Function Panel (04/27/2023) Glucose 105(H) mg/dL [facility] BUN 33(H) mg/dL [facility] Creatinine 4.82(H) mg/dL [facility] BUN/Creatinine Ratio 7(L) [facility] Sodium 139 mEq/L [facility] Potassium 4.7 mEq/L [facility] Chloride 111(H) [facility] Carbon Dioxide 19(L) mmol/L [facility] Calcium 9.3 mg/dL [facility] Phosphorus, Serum 4.3 mg/dL [facility] Albumin (Blood) 3.1(L) g/dL [facility] eGFR 10(L) [facility] Blood (Blood, Venous) 04/27/2023 Historical Provider LAB BLOOD ORDERAB LES [facility] * (ABNORMAL) CBC (04/22/2023) WBC 10.4 K/uL [facility] Red Blood Cell Count 3.80(L) [facility] Hemoglobin 10.3(L) g/dL [facility] Hematocrit 32.5(L) % [facility] MCV 86 [facility] MCH 27.1 [facility] MCHC 31.7(L) [facility] RDW 15.9(H) [facility] Platelet Count 348 [facility] MPV 8.9 [facility] Blood (Blood, Venous) 04/22/2023 Historical Provider LAB BLOOD ORDERAB LES [facility] * (ABNORMAL) Comprehensive Metabolic Panel (CMP) (04/22/2023) Glucose 98 mg/dL [facility] BUN 47(H) mg/dL [facility] Creatinine 4.90(H) mg/dL [facility] Sodium 136 mEq/L [facility] Potassium 4.7 mEq/L [facility] Chloride 98 [facility] Carbon Dioxide 21(L) mmol/L [facility] Calcium 10.9(H) mg/dL [facility] Albumin (Blood) 4.2 g/dL [facility] AST (SGOT) 83(H) U/L [facility] ALT (SGPT) 104(H) U/L [facility] Alkaline Phosphatase 89 U/L [facility] Total Bilirubin 0.5 MG/DL [facility] eGFR 9(L) [facility] Total Protein, Serum 8.2(H) [facility] Anion Gap 17 [facility] Blood 04/22/2023 Historical Provider LAB BLOOD ORDERAB LES [facility] documented in this encounter Visit Diagnoses Not on filedocumented in this encounter Care Teams History Faculty Member Relationship Specialty Start Date End Date Gertrude Perez MD [address] [place] [address] PCP - General 05/01/23 documented as of this encounter
--- OUTSIDE RECORDS SUMMARY | 2023-06-27 07:55 | XMS_ITS | Encounter Summary ---
Author Name Unknown Organization [facility] Address [address] [place] [address] Care Team Providers Care Package Designer Name Role Phone Gertrude Perez MD Primary Care Provider Encounter Details Date Type Department Care Team Description 05/26/2023 Office Communication [facility] [address] [place] [address] Alex Kaplan MD [address] [place] [address] Social History Tobacco Use Types Packs/Day Years Used Date Smoking Tobacco: Never Assessed Sex and Gender Information Value Date Recorded Sex Assigned at Not on file Gender Identity Not on file Sexual Orientation Not on file documented as of this encounter Miscellaneous Notes * Telephone Encounter - Vi Plascencia - 05/26/2023 12:19 PM CDT I called [facility] and secured an hall manager for patient's appointment on 06-10. * Telephone Encounter - Melvin Andi - 05/26/2023 10:15 AM CDT LVM for patient, 06/10 appointment with Amy Jimenez needs to be rescheduled as we could not find an 7th grade teacher. documented in this encounter Plan of Treatment Upcoming Encounters Date Type Department Care Team Description 07/12/2023 Orders Only [facility] [address] [place] [address] Amy Jimenez, MANAGER PLAN-IMPORTER EXPORTER [address] [place] [phone] Acute injury of kidney documented as of this encounter Visit Diagnoses Not on filedocumented in this encounter Care Teams Package Designer Relationship Specialty Start Date End Date Gertrude Perez MD [address] [place] [address] PCP - General 05/01/23 documented as of this encounter
--- OUTSIDE RECORDS SUMMARY | 2023-06-27 07:55 | XMS_ITS | Encounter Summary ---
Author Name Unknown Organization [facility] [place] Address [address] [place] [address] Care Team Providers Care Voltage Regulator Assembler Name Role Phone Gertrude Perez MD Primary Care Provider Encounter Details Date Type Department Care Team Description 06/11/2023 10:00 AM EDT Office Visit [facility] [place] [place] [address] [place] [address] Amy Jimenez, CHIEF SCHOOL FINANCE OFFICER-TRENCH DIGGER HELPER [address] [place] [phone] Acute injury of kidney (HCC) (Primary Dx); Hypertension; Acute metabolic acidosis; Secondary hyperparathyroidism of renal origin (HCC); Anemia, not otherwise specified; Type 2 diabetes mellitus with diabetic chronic kidney disease (HCC); 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); Hyperlipidemia, not otherwise specified Social History Tobacco Use Types Packs/Day Years Used Date Smoking Tobacco: Never Passive Smoke Exposure: Never Smokeless Tobacco: Never Tobacco Cessation:Counseling Given: Not Answered Sex and Gender Information Value Date Recorded Sex Assigned at Not on file Gender Identity Not on file Sexual Orientation Not on file documented as of this encounter Last Filed Vital Signs Vital Sign Reading Time Taken Comments Blood Pressure 139/103 06/11/2023 9:46 AM CDT Pulse 72 06/11/2023 9:46 AM CDT Temperature - - Respiratory Rate 18 06/11/2023 9:46 AM CDT Oxygen Saturation - - Inhaled Oxygen Concentration - - Weight 54 kg (119 lb) 06/11/2023 9:46 AM CDT Height - - Body Mass Index - - documented in this encounter Patient Instructions * Patient Instructions* Amy Jimenez APRN-CNP - 06/11/2023 10:00 AM CDT -Return to clinic in one month with Amy; someone will call you to schedule -Please plan to do pre-visit labs 1-2 weeks prior to next appointment -Please continue to take home blood pressures a couple times a week and bring to next visit. -Call Amy at [facility] if your home readings are in the 150's during the next month. -No medication changes today; continue same regimen -Avoid dehydration; try to drink around 50 ounces of fluids per day Amy Jimenez APRN CNP [facility]: [phone] documented in this encounter Progress Notes * Amy Jimenez APRN-CNP - 06/11/2023 10:00 AM CDT Nephrology New Consult Note Kishore Raya [address] [place] [id number] (home) 63 y.o. female (Not on file) PMD: Gertrude Perez MD Date of Service: 06/11/2023 Chief Complaint: Here in clinic today for hospital follow-up and ANTONETTE. Subjective: Kishore Raya is a 63 y.o. 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 She was initially admitted to [facility] from 04/12/2023-04/15/2023 for septic shock due to presumed pyelonephritis with gram-negative dawson bacteremia. She was in the ICU on pressors but stabilizedand transition to oral antibiotics with plans to complete a 14-day course with ciprofloxacin (last dose 04/25). She was then hospitalized at [facility] from 04/22/2023-04/29/2023 after being called by primary care provider for abnormal labs from 04/21 Hospital follow-up visit. Noted to have creatinine of 4.90 mg/dl in the ED. CT abdomen/pelvis with no urinary calculi and no hydronephrosis bilaterally. Renal function initially failed to improve with fluids and discontinuation of nephrotoxic medications. She had ongoing episodes of hypotension which may have worsened renalfunction. She Patient underwent left sided renal biopsy on 04/24 to help elucidate the cause of her renal disease. Today she denies fever, chest pain, dyspnea, abdominal pain, flank pain, nausea, hematuria, and edema. ROS: A comprehensive ROS was obtained and negative other than noted above. ASSESSMENT AND RECOMMENDATIONS: 1. Acute Kidney Injury: Potential etiology: Severe ATN per Kidney Bx 04/24/23. Path shows acute tubular necrosis without evidence of inflammation and also evidence of chronic glomerulosclerosis indicative of diabetic and hypertensive nephropathy. Creatinine of 4.9 on admission with normal renal function on recent discharge (04/12-04/15/22 for GNRbacteremia/ septic shock). Suspect sepsis + prolonged pre- renal state with progression to ATN in the setting of poor intake. CT without obstruction. Creatinine ranges: 2.95--> 3.64-->3.78--> 4.82 UA - unremarkable. urine protein 0.4 - global glomerulosclerosis noted on Bx (DM/HTN) Did not need urgent dialysis needs and acidosis improved with start of oral Bicarbonate. Normal renal US with dopplers on 04/25. Most recent creatinine 1.28 mg/dl with eGFR 47 on 05/09/2023. Plan: -No changes today -No need for imaging now -Continue to avoid NSAIDs. Tylenol is okay. -Continue to stay well-hydrated and strive to eat a low salt diet. -Will plan to see her in clinic in one month and will assess renal function labs at that time. 2. Hypertension: BP has been better controlled. Current medication regimen: Amlodipine, lisinopril on hold, chlothiadone on hold. Reports her home blood pressures have been normal. BP within goal. She will continue to take home blood pressures. Kidney biopsy with global glomerulosclerosis in 4 of 9glomeruli on 04/24/23. Contributing to proteinuria. Plan: -Will continue to HOLD MAE and chlothiadone for now. Return to clinic in one month. -Please continue to take home blood pressures a couple times a week and bring to next visit. 3 Metabolic Acidosis: Resolved. C02 25. Continue to trend. 4. CKD MBD: We will be checking intact PTH, calcium, and phosphorus. Goal intact PTH would be between 70 and 110. Will check vit D level with next labs. 5. Anemia: Hgb 10.8. Improving. Paraprotein ruled out. Continue to trend. 6. Type 2 DM: Last Hgb A1c 7.2 on 04/22/2023. Goal Hgb A1c 7% or less. Continue management per PCP. 7. Cirrhosis 04/18 Hep B: OK to resume Tenofovir - Pharm D to give input on dose given current GFR. 8. Hyperlipidemia: Stable on Atorvasatatin Patient is urged to contact the clinic prior to his next visit if any new problems, questions, or concerns should arise. Please do not hesitate to contact me if further input is needed or with updates. Amy Jimenez APRN TRENCH DIGGER HELPER [facility]: [phone] HPI: Kishore Raya is a 63 y.o. 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 She was initially admitted to [facility] from 04/12/2023-04/15/2023 for septic shock due to presumed pyelonephritis with gram-negative dawson bacteremia. She was in the ICU on pressors but stabilizedand transition to oral antibiotics with plans to complete a 14-day course with ciprofloxacin (last dose 04/25). She was then hospitalized at [facility] from 04/22/2023-04/29/2023 after being called by primary care provider for abnormal labs from / Hospital follow-up visit. Noted to have creatinine of 4.90 mg/dl in the ED. CT abdomen/pelvis with no urinary calculi and no hydronephrosis bilaterally. Renal function initially failed to improve with fluids and discontinuation of nephrotoxic medications. She had ongoing episodes of hypotension which may have worsened renalfunction. PMH: History reviewed. No pertinent past medical history. Patient Active Problem List Diagnosis Essential hypertension Type 2 diabetes mellitus without complication (HCC) Urinary tract infectious disease Current Outpatient Medications on File Prior to Visit Medication Sig Dispense Refill amLODIPine (NORVASC) 5 MG tablet Take 1 Tablet (5 mg) by mouth once daily. Hold this medication until seen by your PCP. Prior dose was 5 mg daily. atorvastatin (LIPITOR) 20 MG tablet Take 20 mg by mouth once daily. FLUoxetine (PROzac) 20 MG capsule Take 20 mg by mouth in the morning. naphazoline-pheniramine (NAPHCON-A) 0.025-0.3 % ophthalmic solution Administer 1 drop into affectedeye(s) xdpghbjd-khjmcycri-mmvkghkodwujbz (CORTISPORIN) 3.5-57539-6 otic suspension Administer 3 drops intoaffected ear(s) in the morning. tenofovir disoproxil fumarate (VIREAD) 300 MG tablet Take 1 Tablet (300 mg) by mouth every 72 hours. Defer to your physician on readjustment of dose based on your kidney function. triamcinolone (KENALOG) 0.1 % cream Apply topically to affected area(s) once daily if needed. No current facility-administered medications on file prior to visit. Allergies: Allergies Allergen Reactions Hydrocodone-Acetaminophen Tolerates. Had elevated bili at the time of the rash - likely cause of pruritis. Ibuprofen Metformin Other (see comments) Social History: Social History Socioeconomic History Marital status: Spouse name: Not on file Number of children: Not on file Years of education: Not on file Highest education level: Not on file Occupational History Not on file Tobacco Use Smoking status: Not on file Smokeless tobacco: Not on file Substance and Sexual Activity Alcohol use: Not on file Drug use: Not on file Sexual activity: Not on file Other Topics Concern Not on file Social History Narrative Not on file Social Determinants of Health Financial Resource Strain: Not on file Food Insecurity: Not on file Transportation Needs: Not on file Physical Activity: Not on file Stress: Not on file Social Connections: Not on file Intimate Partner Violence: Not on file Housing Stability: Not on file Family History: History reviewed. No pertinent family history. Physical Exam: Vitals: 06/11/23 0946 BP: (!) 139/103 BP Location: Left upper arm Patient Position: Sitting Pulse: 72 Resp: 18 Weight: 119 lb (54 kg) Gen: calm and comfortable Eyes: sclera non icteric ENMT: neck movement unrestricted Lungs: Clear to auscultation bilaterally with no respiratory distress, normal effort. Heart: Regular rate and rhythm, no leg edema. Neuro: Moving all four extremities Psych: Alert, oriented x3. Normal affect MS: No obvious joint or digit deformities visible, no cyanosis Skin: No lesions, facial rash or erythema visible Chemistry and Bone Mineral Lab Units 05/09/23 0000 04/29/23 0000 04/27/23 0000 04/22/23 0000 SODIUM mEq/L 143 141 139 136 POTASSIUM mEq/L 4.1 4.3 4.7 4.7 CHLORIDE 106 105 111* 98 CO2 mmol/L 25 23 19* 21* CALCIUM mg/dL 10.8* 10.1 9.3 10.9* PHOSPHORUS mg/dL -- 3.9 4.3 -- ALK PHOS U/L -- -- -- 89 GLUCOSE mg/dL 112* 95 105* 98 ALBUMIN g/dL -- 3.7* 3.1* 4.2 BUN mg/dL 18 27* 33* 47* CREATININE mg/dL 1.28* 2.95* 4.82* 4.90* CBC and Iron Studies Lab Units 05/09/23 0000 04/22/23 0000 WBC AUTO K/uL -- 10.4 HEMATOCRIT % -- 32.5* HEMOGLOBIN g/dL 10.8* 10.3* MCV -- 86 PLATELETS AUTO -- 348 Urine Lab Units 05/09/23 0000 COLOR U Yellow CLARITY U Clear KETONES U Negative UROBILINOGEN U Normal I have performed a complete review of pertinent lab results 06/11/2023. documented in this encounter Plan of Treatment Upcoming Encounters Date Type Department Care Team Description 07/12/2023 Orders Only [facility] [place] [address] [address] Amy Jimenez, CHIEF SCHOOL FINANCE OFFICER-TRENCH DIGGER HELPER [address] [place] [address] Acute injury of kidney Scheduled Orders Name Type Priority Associated Diagnoses Orde r Schedule Renal function panel Lab Routine Acute injury of kidney (HCC) Expected: 07/12/2023 (Approximate), Expires: 07/11/2024 Hemoglobin Lab Routine Acute injury of kidney (HCC) Expected: 07/12/2023 (Approximate), Expires: 07/11/2024 PTH, intact Lab Routine Acute injury of kidney (HCC) Expected: 07/12/2023 (Approximate), Expires: 07/11/2024 Vitamin D 25 hydroxy Lab Routine Acute injury of kidney (HCC) Expected: 07/12/2023 (Approximate), Expires: 07/11/2024 Urine Albumin / Creatinine Ratio Lab Routine Acute injury of kidney (HCC) Expected: 07/12/2023 (Approximate), Expires: 07/11/2024 Urinalysis with microscopic Lab Routine Acute injury of kidney (HCC) Expected: 07/12/2023 (Approximate), Expires: 07/11/2024 Urine Protein / creatinine ratio Lab Routine Acute injury of kidney (HCC) Expected: 07/12/2023 (Approximate), Expires: 07/11/2024 documented as of this encounter Visit Diagnoses Diagnosis Acute injury of kidney- Primary Hypertension Acute metabolic acidosis Secondary hyperparathyroidism of renal origin (HCC) Secondary hyperparathyroidism of renal origin Anemia, not otherwise specified 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
--- OUTSIDE RECORDS SUMMARY | 2023-06-27 07:55 | XMS_ITS | Encounter Summary ---
Author Name Unknown Organization [facility] [place] Address [address] [place] [address] Care Team Providers Care Supervisor Lens Generating Name Role Phone Gertrude Perez MD Primary Care Provider Encounter Details Date Type Department Care Team Description 04/30/2023 Office Communication [facility] [address] [place] [address] Alex Kaplan MD [address] [place] [address] Acute injury of kidney (HCC) (Primary Dx) Social History Tobacco Use Types Packs/Day Years Used Date Smoking Tobacco: Never Assessed Sex and Gender Information Value Date Recorded Sex Assigned at Not on file Gender Identity Not on file Sexual Orientation Not on file documented as of this encounter Progress Notes * Alex Kaplan MD - 05/14/2023 11:19 AM CST Calcium 10.8. Can we make sure she is pushing fluids and stop any calciu/vitamin D medications. Shehas appt with Barbara in [facility] in a few weeks documented in this encounter Miscellaneous Notes * Addendum Note - Haley Harrington RN - 05/06/2023 4:44 PM CSTAddended by: HALEY HARRINGTON on: 05/06/2023 04:44 PM Modules accepted: Orders * Telephone Encounter - Haley Harrington RN - 05/06/2023 4:43 PM CST Pre-visit lab orders placed, faxed to the [facility] lab. * Telephone Encounter - Andi Charles - 05/01/2023 11:07 AM CST Patient scheduled, they declined going to , they would like to do their [facility] at [facility]. * Telephone Encounter - Andi Charles - 04/30/2023 12:07 PM CST Staff message from Haley Harrington RN : HFU Request per Provider Requesting Provider Name:[facility] Name and/or MRN: [place] Patient Name:Kishore Raya :62 Appt Timeframe:4 weeks Diagnosis:ANTONETTE Labs Needed Prior (Y/N):Yes Lab orders received: See below Please notify nursing when chart prepped to placed lab orders Thank you Alex Kaplan MD [facility] Clinical Pool Please set up HFU ([place]) with JAS at [facility] in 4 weeks for ANTONETTE (ATN by 04/24/23 kidney Bx.) Check BMP, Hgb, UA prior to visit. Patient is deaf and will need interpreter and translator for visit. documented in this encounter Plan of Treatment Upcoming Encounters Date Type Department Care Team Description 07/12/2023 Orders Only [facility] [place] [address], [place] [address] Amy Jimenez, ADOBE ARCHITECT-INFECTION CONTROL COORDINATOR [address] [place] [phone] Acute injury of kidney documented as of this encounter Procedures Procedure Name Priority Date/Time Associated Diagnosis Comments URINALYSIS WITH MICROSCOPIC Routine 05/09/2023 Acute injury of kidney (HCC) HEMOGLOBIN Routine 05/09/2023 Acute injury of kidney (HCC) BASIC METABOLIC PANEL Routine 05/09/2023 Acute injury of kidney (HCC) documented in this encounter Results * (ABNORMAL) Urinalysis with microscopic (05/09/2023) Color, Urine Yellow [facility] Clarity, Urine Clear [facility] Urine Specific [place] 1.020 [facility] pH Urine 6.0 [facility] Leukocyte Esterase UA Negative [facility] Nitrite, Urine Negative [facility] Protein, Urine 30(A) [facility] Glucose, Urine Negative [facility] Ketones, Urine Negative [facility] Urobilinogen, Urine Normal [facility] Bilirubin, Urine Negative [facility] Blood, Urine Trace(A) [facility] WBC, Urine 0-2 [facility] RBC, Urine 0-2 [facility] Bacteria, Urine Few [facility] Urine (Urine, Clean Catch) 05/09/2023 Alex Kaplan MD LAB URINE ORDERABLES Performing Organization Address City/[facility]/ZIP Co de Phone Number [facility] * (ABNORMAL) Hemoglobin (05/09/2023) Hemoglobin 10.8(L) g/dL [facility] Blood (Blood, Venous) 05/09/2023 Alex Kaplan MD LAB BLOOD ORDERABLES [facility] * (ABNORMAL) Basic metabolic panel (05/09/2023) Sodium 143 mEq/L [facility] Potassium 4.1 mEq/L [facility] Chloride 106 [facility] Carbon Dioxide 25 mmol/L [facility] Calcium 10.8(H) mg/dL [facility] BUN 18 mg/dL [facility] Creatinine 1.28(H) mg/dL [facility] Glucose 112(H) mg/dL [facility] eGFR 47(L) [facility] Anion Gap 12 [facility] Blood (Blood, Venous) 05/09/2023 Alex Kaplan MD LAB BLOOD ORDERABLES [facility] documented in this encounter Visit Diagnoses Diagnosis Acute injury of kidney- Primary Acute injury of kidney documented in this encounter Care Teams Supervisor Lens Generating Relationship Specialty Start Date End Date Gertrude Perez MD [address] [place] [address] PCP - General 05/01/23 documented as of this encounter
--- OUTSIDE RECORDS SUMMARY | 2023-06-27 07:55 | XMS_ITS | Encounter Summary ---
Author Name Unknown Organization [facility] [place] Address [address] [place] [address] Care Team Providers Care Compliance Reviewer Name Role Phone Gertrude Perez MD Primary Care Provider Encounter Details Date Type Department Care Team Description 05/01/2023 Documentation Only [facility] [place] [address] [place] [address] Alex Kaplan MD [address] [place] [address] Social History Tobacco Use Types [...] [facility] [place] [place] [address] [place] [address] Amy Jimenez, WAREHOUSE GUARD-CREDIT FRONT OFFICE DEVELOPER [address] [place] [phone] Acute injury of kidney documented as of this encounter Visit Diagnoses Not on filedocumented in this encounter Care Teams Compliance Reviewer Relationship Specialty Start Date End Date Gertrude Perez MD [address] [facility] [address] PCP - General 05/01/23 documented as of this encounter
--- OUTSIDE RECORDS SUMMARY | 2023-06-27 07:55 | XMS_ITS | Clinical Summary ---
Author Name Unknown Organization [facility] [place] [place] Address [address] [place], [place] [address] Phone Care Team Providers Care Front End Loader Operator Name Role Phone Gertrude Perez MD Primary Care Provider Allergies Active Allergy Reactions Criticality Noted Date Comments Hydrocodone-Acetamino phen 05/12/2010 Tolerates. Had elevated bili at the time of the rash - likely cause of pruritis. Ibuprofen 05/12/2010 Metformin Other (see comments) 05/01/2023 Medications Medication Sig Dispensed Refills Start Date End Date Status neomycin-polymyx in-hydrocortison e (CORTISPORIN) 3.5-16075-8 otic suspension Administer 3 drops into affected ear(s) in the morning. 0 Active naphazoline-phen iramine (NAPHCON-A) 0.025-0.3 % ophthalmic solution Administer 1 drop into affected eye(s) 0 Active triamcinolone (KENALOG) 0.1 % cream Apply topically to affected area(s) once daily if needed. 0 Active tenofovir disoproxil fumarate (VIREAD) 300 MG tablet Take 1 Tablet (300 mg) by mouth every 72 hours. Defer to your physician on readjustment of dose based on your kidney function. 0 05/02/2023 Active atorvastatin (LIPITOR) 20 MG tablet Take 20 mg by mouth once daily. 0 Active amLODIPine (NORVASC) 5 MG tablet Take 1 Tablet (5 mg) by mouth once daily. Hold this medication until seen by your PCP. Prior dose was 5 mg daily. 0 04/29/2023 Active FLUoxetine (PROzac) 20 MG capsule Take 20 mg by mouth in the morning. 0 Active famotidine (PEPCID) 10 MG tablet Take 10 mg by mouth in the morning. 0 05/01/2023 4 Discontinued chlorthalidone 25 MG tablet Take 25 mg by mouth 1 (one) time each day 0 10/14/2022 4 Discontinued lisinopril 40 MG tablet Take by mouth at bed time 0 10/14/2022 4 Discontinued Active Problems Problem Noted Date Diagnosed Date Urinary tract infectious disease 04/22/2023 Type 2 diabetes mellitus without complication Essential hypertension 08/12/2003 Overview: Hypertension Hypertension Encounters Date Type Department Care Team Description 06/11/2023 10:00 AM EDT Office Visit [facility] [address] [place] [address] Amy Jimenez, SUPERVISOR WELDING EQUIPMENT REPAIRER-STAFF AIR DEFENSE OFFICER Acute injury of kidney (HCC) (Primary Dx); Hypertension; Acute metabolic acidosis; Secondary hyperparathyroidism of renal origin (HCC); Anemia, not otherwise specified; Type 2 diabetes mellitus with diabetic chronic kidney disease (HCC); 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); Hyperlipidemia, not otherwise specified 05/26/2023 Office Communication [facility] [place] [address] [place] [phone] Alex Kaplan MD 05/14/2023 Telephone [facility] [address] [place] [phone] Yudi Corey RN 05/07/2023 Documentation Only [facility] [place] [address] [place] [phone] Yahir Adam 05/01/2023 Documentation Only [facility] [address] [place] [phone] Alex Kaplan MD 04/30/2023 Office Communication [facility] [address] [place] [phone] Alex Kaplan MD Acute injury of kidney (HCC) (Primary Dx) from Last 3 Months Social History Tobacco Use Types Packs/Day Years [...] - - Body Mass Index - - Plan of Treatment Upcoming Encounters Date Type Department Care Team Description 07/12/2023 Orders Only [facility] [place] [place] [address] [place] [address] Amy Jimenez, SUPERVISOR WELDING EQUIPMENT REPAIRER-STAFF AIR DEFENSE OFFICER [address] [facility] [address] [place] [phone] Acute injury of kidney Health Maintenance Due Date Last Done Comments Breast Cancer Screening 1960 Colorectal Cancer Screening: Annual FOBT 2010 Colorectal Cancer Screening: Colonoscopy 2010 Colorectal Cancer Screening: Sigmoidoscopy 2010 Pneumococcal Vaccine: Pediat rics (0 to 5 Years) and At-Risk Patients (6 to 64 Years) (3 of 3 - PPSV23 or PCV20) 09/20/2020 07/26/2020, 02/28/2014 Hepatitis B Vaccine (1 of 3 - Risk 3-dose series) 2021 04/08/1995, 08/01/1994, 06/01/1994 Diabetes: Ophthalmology Exam 04/30/2023 Diabetes: Pedal Pulse Checked 04/30/2023 Diabetes: Sensory Foot Exam 04/30/2023 Diabetes: Visual Foot Exam 04/30/2023 Diabetes: Hemoglobin A1C 07/21/2023 04/22/2023, 03/18 Influenza Vaccine Completed 12/16/2022, , 12/18/2020, Additional history exists Procedures Procedure Name Priority Date/Time Associated Diagnosis Comments URINALYSIS WITH MICROSCOPIC Routine 05/09/2023 Acute injury of kidney (HCC) HEMOGLOBIN Routine 05/09/2023 Acute injury of kidney (HCC) BASIC METABOLIC PANEL Routine 05/09/2023 Acute injury of kidney (HCC) RENAL FUNCTION PANEL Routine 04/29/2023 RENAL FUNCTION PANEL Routine 04/27/2023 CBC Routine 04/22/2023 COMPREHENSIVE METABOLIC PANEL (CMP) (EXTERNAL LAB ENTRY) Routine 04/22/2023 from Last 3 Months Results * (ABNORMAL) Urinalysis with microscopic (05/09/2023) Color, Urine Yellow [facility] Clarity, Urine Clear [facility] Urine Specific [place] 1.020 [facility] pH Urine 6.0 [facility] Leukocyte Esterase UA Negative [facility] Nitrite, Urine Negative [facility] Protein, Urine 30(A) [facility] Glucose, Urine Negative [facility] Ketones, Urine Negative [facility] Urobilinogen, Urine Normal [facility] Bilirubin, Urine Negative [facility] Blood, Urine Trace(A) [facility] WBC, Urine 0-2 [facility] RBC, Urine 0-2 [facility] Bacteria, Urine Few [facility] Urine (Urine, Clean Catch) 05/09/2023 Alex Kaplan MD LAB URINE ORDERABLES [facility] * (ABNORMAL) Hemoglobin (05/09/2023) Hemoglobin 10.8(L) g/dL [facility] Blood (Blood, Venous) 05/09/2023 Alex Kaplan MD LAB BLOOD ORDERABLES Performing Organization Address [facility] de Phone Number [facility] * (ABNORMAL) Basic metabolic panel (05/09/2023) Sodium 143 mEq/L [facility] Potassium 4.1 mEq/L [facility] Chloride 106 [facility] Carbon Dioxide 25 mmol/L [facility] Calcium 10.8(H) mg/dL [facility] BUN 18 mg/dL [facility] Creatinine 1.28(H) mg/dL [facility] Glucose 112(H) mg/dL [facility] eGFR 47(L) [facility] Anion Gap 12 [facility] Blood (Blood, Venous) 05/09/2023 Alex Kaplan MD LAB BLOOD ORDERABLES Performing Organization Address [facility] Phone Number [facility] * (ABNORMAL) Renal Function Panel (04/29/2023) Only the most recent of2 resultswithin the time period is included. Glucose 95 mg/dL [facility] BUN 27(H) mg/dL [facility] Creatinine 2.95(H) mg/dL [facility] BUN/Creatinine Ratio 9(L) [facility] Sodium 141 mEq/L [facility] Potassium 4.3 mEq/L [facility] Chloride 105 [facility] Carbon Dioxide 23 mmol/L [facility] Calcium 10.1 mg/dL [facility] Phosphorus, Serum 3.9 mg/dL [facility] Albumin (Blood) 3.7(L) g/dL [facility] eGFR 17(L) [facility] Blood (Blood, Venous) 04/29/2023 Elijah Rizo MD LAB BLOOD ORDERAB LES Performing Organization Address [facility] Co de Phone Number [facility] * (ABNORMAL) Comprehensive Metabolic Panel (CMP) [...] 04/22/2023 Historical Provider LAB BLOOD ORDERAB LES [facility] from Last 3 Months Care Teams Front End Loader Operator Relationship Specialty Start Date End Date Gertrude Perez MD [address] [place] [address] PCP - General 05/01/23
--- OUTSIDE RECORDS SUMMARY | 2023-06-27 07:55 | XMS_ITS | Encounter Summary ---
Author Name Unknown Organization [facility] [place] Address [address] [place] [address] Care Team Providers Care Livestock Broker Name Role Phone Gertrude Perez MD Primary Care Provider Encounter Details Date Type Department Care Team Description 05/14/2023 Telephone [facility] [place] [address] [place] [address] Yudi Corey RN [address] [place] [address] Social History Tobacco Use Types Packs/Day Years Used Date Smoking Tobacco: Never Assessed Sex and Gender Information Value Date Recorded Sex Assigned at Not on file Gender Identity Not on file Sexual Orientation Not on file documented as of this encounter Miscellaneous Notes * Telephone Encounter - Yudi Corey RN - 05/14/2023 1:05 PM CST Clean Up Supervisor notified and pt is not taking any calcium/vit D meds. * Telephone Encounter - Yudi Corey RN - 05/14/2023 1:05 PM CST ----- Message from Alex Kaplan MD sent at 05/14/2023 11:19 AM EXHIBIT ELECTRICIAN ----- Calcium 10.8. Can we make sure she is pushing fluids and stop any calciu/vitamin D medications. Matthew appt with Barbara in [facility] in a few weeks documented in this encounter Plan of Treatment Upcoming Encounters Date Type Department Care Team Description 07/12/2023 Orders Only [facility] [place] [address] [place] [phone] Amy Jimenez, SUPERVISOR CONCR[employer]E [employer]RICATING-ARTIFICIAL PLASTIC EYE MAKER [address] [place] [phone] Acute injury of kidney documented as of this encounter Visit Diagnoses Not on filedocumented in this encounter Care Teams Livestock Broker Relationship Specialty Start Date End Date Gertrude Perez MD [address] [place] [address] PCP - General 05/01/23 documented as of this encounter
--- OUTSIDE RECORDS SUMMARY | 2023-06-27 07:56 | XMS_ITS | Encounter Summary ---
Author Name Unknown Organization [facility] Address [address], [place] [address] Care Team Providers Care Dietary Aide Cook Name Role Phone Needs Pcp, Assignment Primary Care Provider Encounter Details Date Type Department Care Team (Late Contact Info) Description 04/16/2023 Notes/Orders [facility] [address] [place] [address] Amrita Moore AU.D. [address] [place] [address] Bilateral sensorineural hearing loss (Primary Dx) Social History Tobacco Use Types Packs/Day Years Used Date Smoking Tobacco: Never Sex and Gender Information Value Date Recorded Sex Assigned at Not on file Gender Identity Not on file Sexual Orientation Not on file documented as of this encounter Plan of Treatment Upcoming Encounters Date Type Department Care Team (Late Contact Info) Description 07/15/2023 8:30 AM CDT Appointment [facility] [address] [place] [phone] Antonia Bryan AU.D. [address] [place] [address] documented as of this encounter Visit Diagnoses Diagnosis Bilateral sensorineural hearing loss- Primary Sensorineural hearing loss, bilateral documented in this encounter Care Teams Dietary Aide Cook Relationship Specialty Start Date End Date Needs Pcp, [place] [address] PCP - General 12/13/14 documented as of this encounter
--- OUTSIDE RECORDS SUMMARY | 2023-06-27 07:56 | XMS_ITS | Clinical Summary ---
Author Name Unknown Organization [facility] Address [address] [place] [address] Care Team Providers Care Ore Miner Name Role Phone Needs Pcp, Assignment Primary Care Provider [phone] Source Comments You are receiving this document as you are listed as the primary care provider,follow-up provider, or the patient has been referred to you for consultation.This is in compliance with the Medicare and[facility] EHR Incentive Program,which states Providers who transition their patient to another setting of careor provider of care or refers their patient to another provider of care shouldprovide summary care record for each transition of care or referral. [facility] Allergies Active Allergy Reactions Criticality Noted Date Comments Review Food Intolerance 01/10/2003 PN: LW FI1: nka LW FI2: nka Medications Medication Sig Dispensed Refills Start Date End Date Status lisinopril (AKA ZESTRIL) 30 MG tablet Take 1 tablet by mouth daily (every 24 hours). LW Comment:Needs Appt/lab within 30 days LW Addl Instr:Indicated for: High Blood Pressure 09/03/2010 Active citalopram (AKA CELEXA) 40 MG tablet Take 1 tablet by mouth daily (every 24 hours). LW Comment:Needs Appt within 30 days LW Addl Instr:Indicated for: Depression 09/03/2010 Active simvastatin (AKA ZOCOR) 20 MG tablet Take 1 tablet by mouth every evening. LW Addl Instr:Indicated for: High Cholesterol 90 PRN 08/11/2009 Active calcium carbonate-vitamin D 600-400 MG-UNIT tablet Take 1 tablet by mouth 2 times daily. 180 PRN 04/03/2007 Active METFORMIN HCL OR Take by mouth. 04/15/2014 Acti ve Active Problems Problem Noted [...] Encounters Date Type Department Care Team Description 04/16/2023 Notes/Orders [place] [address] [place] [address]. [place] [address] Amrita Moore AU.D. Bilateral sensorineural hearing loss (Primary Dx) from Last 3 Months Immunizations Name [...] ??C (99 ??F) 05/15/2009 2:4 3 PM UNIVERSAL BRANCH CONSULTANT C: 37.2 C Respiratory Rate - - Oxygen Saturation - - Inhaled Oxygen Concentration - - Weight 60.8 kg (133 lb 15.9 oz) 010 8:25 AM CDT C: 60.8kg Height 155.6 cm (5' 1.25) 08/11/2009 8 :25 AM CDT C: 155.6cm Body Mass Index 25.11 08/11/2009 8:25 AM CDT Plan of Treatment Upcoming Encounters Date Type Department Care Team (Late st Contact Info) Description 07/15/2023 8:30 AM CDT Appointment [facility] [address] [place] [address] Antonia Bryan AUDonny [address] [place] [address] Health Maintenance Due Date Last Done Comments Colon Cancer Screening Plan Due 1960 Medicare Annual Wellness Visit 1961 HIV Screening (Preventive Services) 1977 Cervical Cancer Screening Due 04/04/2007 04/03/2007, 04/21/2002, 12/01/2000, Additional history exists Mammogram 02/10/2011 02/10/2010, 01/16, 01/29/2008, Additional history exists Cholesterol 08/11/2014 08/11/2009, 06/16, 05/29/2007, Additional history exists COVID-19 Vaccine ( season) 2022 07/11/2020, 06/20/2020 Influenza (#1) 2022 12/28/2019, 12/15, 12/26/2017, Additional [...] Completed 10/26/2009, 07/30/2008, 02/04/2005 HepA Completed 02/14/2011, 09/16/2002 Pneumococcal Aged Out 02/28/2014 No longer eligi ble based on patient's age to complete this topic Zoster/Shingles Completed 03/29/2020, 08/20/2019 MCV4 Aged Out No longer eligi ble based on patient's age to complete this topic Procedures Procedure Name Priority Date/Time Associated Diagnosis Comments MM MAMMOGRAM SCREENING BILAT W CAD Routine 02/10/2010 12:55 PM UNIVERSAL BRANCH CONSULTANT HEPATITIS C ANTIBODY, WITH REFLEX Routine 10/26/2009 4:00 PM CDT LIPID PANEL & DIRECT LDL (IF NEEDED) Routine 08/11/2009 9:08 AM CDT ANATOMICAL PATH LIQUID BASED Routine 04/03/2007 8:54 AM UNIVERSAL BRANCH CONSULTANT from Last 3 Months or Most Recently Relevant to Health Maintenance Results * MM Mammogram Screening Bilat W CAD (02/10/2010 12:55 PM UNIVERSAL BRANCH CONSULTANT) Anatomical Region Laterality Modality Breast Bilateral Mammography Narrative 02/12/2010 10:22 AM UNIVERSAL BRANCH CONSULTANT Comparison is made to films from 01/29/2008 (bilateral). There is no significant interval change. Bilateral Breast Findings: There are scattered fibroglandular densities (11% - 50% fibroglandular). No significant masses, calcifications or other abnormalities are seen. IMPRESSION: BILATERAL BREASTS Negative, no evidence of malignancy. Normal interval follow-up is recommended in 12 months. OVERALL ASSESSMENT - CATEGORY 1 - NEGATIVE END OF IMPRESSION SJW Dictating CRISTOBAL BELL MD Procedure Note Cristobal Pinedo MD - 11/07/2015 Comparison is made to films from 01/29/2008 (bilateral). There is no significant interval change. Bilateral Breast Findings: There are scattered fibroglandular densities (11% - 50% fibroglandular). No significant masses, calcifications or other abnormalities are seen. IMPRESSION: BILATERAL BREASTS Negative, no evidence of malignancy. Normal interval follow-up is recommended in 12 months. OVERALL ASSESSMENT - CATEGORY 1 - NEGATIVE END OF IMPRESSION W Dictating CRISTOBAL BELL MD Pauline Jimenez PA-C RAD SONYA * Hepatitis C Antibody, with Reflex (10/26/2009 4:00 PM CDT) Hepatitis C Antibody Non-React No normal range HP CONVERSION 10/26/2009 4:00 PM CDT Pauline Jimenez PA-C LAB_1 HP CONVERSION * (ABNORMAL) Lipid Panel and Direct LDL(If Needed) (08/11/2009 9:08 AM CDT) Cholesterol 160 0 - 200 mg/dL HP CONVERSION Triglycerides 196(H) 0 - 149 mg/dL HP CONVERSION HDL Cholesterol 42 >39 mg/dL HP CONVERSION Cholesterol/HDL Ratio Screen 3.8 No normal range HP CONVERSION LDL Calculated 79 19 - 130 mg/dL HP CONVERSION Hours Fasting 12 No normal range HP CONVERSION 08/11/2009 9:08 AM CDT Pauline Jimenez PA-C LAB_1 HP CONVERSION * Pap Smear (04/03/2007 8:54 AM UNIVERSAL BRANCH CONSULTANT) PAP Smear Liquid Based SEE TEXT No normal range HP CONVERSION Comment: Patient: WOO RAYA ? CERVICAL CYTOLOGY REPORT Pathology # ??[id number] ?Date Obtained: ? Date Received: CYTOLOGIC IMPRESSION: Negative for intraepithelial lesion or malignancy. Verified 04/10/07 by: ??Cristobal Whitt MD ? (electronic signature) ? ADDITIONAL DATA LMP: CLINICAL HIST ?HYST LIQUID BASED PAP VAGINAL SPECIMEN ADEQUACY: ?? Satisfactory. ENDOCERVICAL CELLS: ??Present. 04/03/2007 8:54 AM UNIVERSAL BRANCH CONSULTANT Pauline Jimenez PA-C LAB_1 HP CONVERSION from Last 3 Months or Most Recently Relevant to Health Maintenance Care Teams Ore Miner Relationship Specialty Start Date End Date Needs Pcp, [place] [address] PCP - General 12/13/14
--- OUTSIDE RECORDS SUMMARY | 2023-06-27 07:56 | XMS_ITS | Clinical Summary ---
Author Name Unknown Organization [facility] [employer] Address [place], [place] [address] Care Team Providers Care Reservations Manager Name Role Phone Gertrude Perez MD Primary Care Prov ider Allergies Active Allergy Reactions Criticality Noted Date Comments Hydrocodone-Acetaminophen 05/12/2010 Tolerates. Had elevated bili at the time of the rash - likely cause of pruritis. Ibuprofen 05/12/2010 Metformin Renal Failure 05/01/2023 Medications Medication Sig Dispensed Refills Start Date End Date Status atorvastatin (LIPITOR) 20 mg tablet Take 20 mg by mouth once daily. Active FLUoxetine (PROZAC) 20 mg capsule Take 20 mg by mouth every morning. Active triamcinolone (ARISTOCORT; KENALOG) 0.1 % cream Apply topically to affected area(s) once daily if needed. Active neomycin-polymyxin -hydrocortisone (CORTISPORIN OTIC) otic suspension Place 3 Drops into both ears once daily. Active naphazoline-phenir amine (Naphcon-A) 0.025-0.3 % ophthalmic solution Place 1 Drop into both eyes 4 times daily if needed for Eye Irritation. Active amLODIPine (NORVASC) 5 mg tabletIndications: Acute renal failure, unspecified acute renal failure type (HC) Take 1 Tablet (5 mg) by mouth once daily. Hold this medication until seen by your PCP. Prior dose was 5 mg daily. 04/29/2023 Active tenofovir (VIREAD) 300 mg tabletIndications: Chronic viral hepatitis B without delta agent and without coma (HC) Take 1 Tablet (300 mg) by mouth once daily. 30 Tablet 3 05/21/2023 Active Clotrimazole 2% cream (Trivagizole-3) 2 % creaIndications:Va ginal yeast infection Insert into the vagina at bedtime for 7 days. 42 g 05/21/2023 05/28/2023 Active Problems Problem Noted Date Diagnosed Date Acute kidney injury (ANTONETTE) with acute tubular nec rosis (ATN) 05/06/2023 Overview: Biopsy results: 1) Acute tubular injury. 2) Segmental thinning of the glomerular basement membranes. See addendum comment. Addendum Comment: The absence of immune deposits is confirmed on electron microscopy. The glomerular basement membranes appear segmentally thin with an average thickness that is at the borderline for the criteria for thin glomerular basement membrane disease. This finding may explain the patient's trace hematuria. Also, in the context of a patient with hypertension and diabetes, both of which typically lead to thickening of the GBMs, the borderline measurements may in fact represent true thinning. Features of Alport syndrome are not seen but noting that some patients with Alports, especially females, may have a thin GBM phenotype. Clinical correlation is needed. Metabolic acidosis 04/22/2023 Hypercalcemia 04/22/2023 Normocytic anemia 04/22/2023 Cirrhosis of liver due to hepatitis B 04/22/2023 Septic shock 04/12/2023 Type 2 diabetes mellitus wit hout complication, without long-term current use of insulin 04/12/2023 AV junctional rhythm 04/12/2023 Non-ischemic cardiomyopathy 04/12/2023 Hyponatremia 04/12/2023 Chronic viral hepatitis B without delta-agent Gallstone pancreatitis 05/14/2010 S/P laparoscopic cholecystectomy 05/14/2010 Acute pancreatitis 05/13/2010 Hypertension 05/12/2010 Depression 05/12/2010 Esophageal reflux 04/11/2006 Overview: Gastroesophageal Reflux Disease Hyperlipidemia 02/04/2005 Major depressive disorder, single episode 2004 Overview: Depression Major NOS Essential hypertension 08/12/2003 Overview: Hypertension Hearing loss 08/21/2002 Overview: Hearing Loss NOS Resolved Problems Problem Noted Date Diagnosed Date Resolved Date Candidal vulvovaginitis 04/22/2023 03/0 08/2023 ANTONETTE (acute kidney injury) 04/22/2023 Complicated UTI (urinary tract infection) 04/22/2023 05/21/2023 Acute pyelonephritis 04/12/2023 024 Acute respiratory failure with hypoxia 04/12/2023 05/21/2023 Choledocholithiasis 05/13/2010 05/21/19 24 Acute cholangitis 05/13/2010 05/21/2023 Encounters Date Type Department Care Team Description 05/28/2023 12:45 PM CDT Orders Only [facility] [address] [facility] [place] [address] Lab, [place] [facility] 05/28/2023 Travel 05/21/2023 9:00 AM REGIONAL SALES LEADER Office Visit [facility] [address] [place] [address] Gertrude Perez MD Follow Up (Plank pain/kidney) 05/21/2023 Telephone [facility] [address] [facility] [place] [address] Gertrude Perez MD returning call (Dr. Pope) 05/21/2023 Travel 05/09/2023 11:05 AM REGIONAL SALES LEADER Office Visit [facility] [address] [place] [address] Gertrude Perez MD Hospital F/U (f/u from hospital) 05/09/2023 10:00 AM REGIONAL SALES LEADER Ancillary Procedure [facility] [address] [place] [address] 05/09/2023 Telephone [facility] [address] [place] [address] Gertrude Perez MD 05/09/2023 Travel 05/07/2023 Orders Only [facility] [address] [place] [address] Gertrude Perez MD Outside Order (Ordered by Alex Kaplan) 05/01/2023 9:05 AM REGIONAL SALES LEADER Office Visit [facility] [address] [place] [address] Jyoti Damico MD Post-op (Admission: 04/22/2023 @ [facility] ANTONETTE (acute kidney injury) (HC)); Pain (Left side in area of the kidney, kidney and liver impairment./Did not start any topical pain relief/) 05/01/2023 Travel 04/30/2023 Telephone [facility] [address] [place] [address] Gertrude Perez MD Pain 04/30/2023 Patient Outreach [facility] [address] [place] [address] Azucena Pandey RN Primary RN Care Management; Hospital F/U (LACE 71) 04/22/2023 9:40 AM REGIONAL SALES LEADER - 04/29/2023 4:07 PM REGIONAL SALES LEADER Hospital Encounter [facility] [address] [place] [address] Stew Grossman MD [facility], U Hospitalist Jennifer Beal, MD Cody Abraham Brian G, MD Kafle, Puskar, MBBS Acute renal failure, unspecified acute renal failure type (HC) (Primary Dx); Type 2 diabetes mellitus without complication, without long-term current use of insulin (HC); Chronic viral hepatitis B without delta agent and without coma (HC) Discharge Disposition: Home Self Care 04/21/2023 10:15 AM REGIONAL SALES LEADER Office Visit [facility] [address] [place] [address] Gertrude Perez MD Hospital F/U (post hospital-bladder infection-spent 5 days in hospital) 04/21/2023 Travel 04/12/2023 12:57 AM REGIONAL SALES LEADER - 04/15/2023 3:10 PM REGIONAL SALES LEADER Hospital Encounter [facility] [address] [facility] [address] [facility] Hospitalist sue Abrams, MD Luca Moise, MD Alex Flores Nishant, MBBS Acute pyelonephritis (Primary Dx) Discharge Disposition: Home Self Care from Last 3 Months Immunizations Name Administration Dates Next Due DTP 06/26/1995, 5,09/30/1994,08/01 HIB PRP-T (ActHIB,Hiberix) 06/26/1995,,09/30/1994,08/01 Hepatitis A (Adult) 02/14/2011,09/16/2002 Hepatitis A (Peds),Unspecified 09/16/2002 Hepatitis B (Adult) 04/08/1995,08/01/1994,1994 Influenza A (H1N1), Inactivated 04/07/2009 Influenza RIV4 (Age 18+ Year s) PRESERV FREE 01/02/2022,12/18/2020,12/28/2019,12/24 Influenza Virus, Unspecified 01/29/2008 Influenza, IIV3 (Age 6-35 mos) 4,01/15/2013,12/11/2011,01/04,12/26/2009 Influenza, IIV3 (Age >=3 years) 04/16/2010 Influenza, IIV4 12/16/2022, 8,01/24/2017,12/21,12/30/2014 MMR 09/25/2020,06/26/1995 Meningococcal Vaccine (Menactra) 07/26/2020 Oral Polio Vaccine 11/28/1994,09/30/1994, 995 Pneumococcal Poly,23-Valent (Pneumovax) 02/28/2014 Pneumococcal conj 13-Valent (Prevnar 13) 07/26/2020 Td (Age >=7 Years) 03/16/1998 Tdap 08/20/2019,04/23/2010,07/08/2008 Typhoid (injectable) 09/16/2002 Typhoid, Unspecified 09/16/2002 Varicella Vaccine 09/10/1996 Yellow Fever 09/16/2002 Zoster (Shingrix-RZV, recombinant) 03/29/2020, Family History Medical History Relation Name Comments [...] Sign Reading Time Taken Comments Blood Pressure 137/82 05/21/2023 9:44 AM REGIONAL SALES LEADER patient blood pressure machine Pulse 72 05/21/2023 9:44 AM REGIONAL SALES LEADER Temperature 36.7 ??C (98 ??F) 04/29/2023 7:3 0 AM REGIONAL SALES LEADER Respiratory Rate 16 04/29/2023 7:30 AM REGIONAL SALES LEADER Oxygen Saturation 96% 05/21/2023 8:4 3 AM REGIONAL SALES LEADER Inhaled Oxygen Concentration - - Weight 53.1 kg (117 lb) 05/21/2023 8:43 AM REGIONAL SALES LEADER Height 153.7 cm (5' 0.5) 05/01/2023 9: 14 AM REGIONAL SALES LEADER Body Mass Index 22.47 05/01/2023 9:14 AM REGIONAL SALES LEADER Plan of Treatment Upcoming Encounters Date Type Department Care Team (Late st Contact Info) Description 07/02/2023 9:00 AM CDT Office Visit [facility] [address] [place] [address] Gertrude Perez MD [address] [facility] [address] 07/14/2023 10:15 AM CDT Office Visit [facility] [address] [place] [address] Gertrude Perez MD [address] [place] [address] Health Maintenance Due Date Last Done Comments Depression screening for age 12+ 1973 HIV for age 15-65 1976 Hepatitis C screening for ag e 18-79 1979 Pap test for age 21-65 1982 Colonoscopy through age 75 2006 Lipids for age 45-75 2006 Mammogram for age 45-75 2006 Pneumococcal series for age 6-64 (3 of 3 - PPSV23 or PCV20) 09/20/2020 07/26/2020, 02/28/2014 Influenza for age 50-64 11/16/2023 12/17/19, 01/02/2022, 12/18/2020, Additional history exists BMI (ht and wt on same day) for age 18+ 05/01/2024 05/01/2023 Tetanus booster 08/19/2029 08/20/2019, 09/2010, 07/08/2008, Additional history exists Tdap Completed 08/20/2019, 0 09/2010, 07/08/2008 Zoster (shingles) series for age 50+ Completed 03/29/2020, 08/20/2019 COVID-19 vaccine series Completed 01/07/20, 12/11/2021, 07/31/2021, Additional history exists Procedures Procedure Name Priority Date/Time Associated Diagnosis Comments BASIC METABOLIC PANEL Routine 05/28/2023 12:33 PM CDT Acute renal failure, unspecified acute renal failure type (HC) CBC WITH AUTO DIFFERENTIAL Routine 05/21/2023 9:53 AM REGIONAL SALES LEADER Acute renal failure with tubular necrosis (HC) COMP METABOLIC PANEL Routine 05/21/2023 9:53 AM REGIONAL SALES LEADER Acute renal failure with tubular necrosis (HC) CBC WITH AUTO DIFFERENTIAL Routine 05/21/2023 9:53 AM REGIONAL SALES LEADER Acute renal failure with tubular necrosis (HC) URINALYSIS MICROSCOPIC Routine 05/09/2023 12:00 PM REGIONAL SALES LEADER Acute renal failure with tubular necrosis (HC) UA W/ SEDIMENT EXAM REFLEXED PER CRITERIA Routine 05/09/2023 12:00 PM REGIONAL SALES LEADER Acute renal failure with tubular necrosis (HC) CT ABDOMEN PELVIS WO STAT 05/09/2023 11:59 AM REGIONAL SALES LEADER Left flank pain Transient acute renal failure (HC) HEPATIC FUNCTION PANEL Add On 05/09/2023 11:59 AM REGIONAL SALES LEADER Pruritus HEMOGLOBIN Routine 05/09/2023 11:59 AM REGIONAL SALES LEADER Acute renal failure with tubular necrosis (HC) BASIC METABOLIC PANEL Routine 05/09/2023 11:59 AM REGIONAL SALES LEADER Acute renal failure with tubular necrosis (HC) URINALYSIS MICROSCOPIC Routine 05/01/2023 10:40 AM REGIONAL SALES LEADER Left flank pain URINE CULTURE Routine 05/01/2023 10:40 AM REGIONAL SALES LEADER Left flank pain UA W/ SEDIMENT EXAM REFLEXED PER CRITERIA Routine 05/01/2023 10:40 AM REGIONAL SALES LEADER Left flank pain GLUCOSE METER Timed 04/29/2023 11:15 AM REGIONAL SALES LEADER SCAN-CARDIAC STRIP 04/29/2023 8: 26 AM REGIONAL SALES LEADER IRON PLUS IRON BINDING CAP ENZO 04/29/2023 7:06 AM REGIONAL SALES LEADER HEMOGLOBIN Early AM 04/29/2023 7:06 AM REGIONAL SALES LEADER RENAL FUNCTION PANEL Early AM 04/29/2023 7:06 AM REGIONAL SALES LEADER GLUCOSE METER Timed 04/29/2023 7:05 AM REGIONAL SALES LEADER GLUCOSE METER Timed 04/28/2023 8:50 PM REGIONAL SALES LEADER GLUCOSE METER Timed 04/28/2023 5:19 PM REGIONAL SALES LEADER GLUCOSE METER Timed 04/28/2023 11:10 AM REGIONAL SALES LEADER SCAN-CARDIAC STRIP 04/28/2023 8: 41 AM REGIONAL SALES LEADER GLUCOSE METER Timed 04/28/2023 8:02 AM REGIONAL SALES LEADER VITAMIN B12 ENZO 04/28/2023 7:04 AM REGIONAL SALES LEADER FERRITIN ENZO 04/28/2023 7:04 AM REGIONAL SALES LEADER HEMOGLOBIN Early AM 04/28/2023 7:04 AM REGIONAL SALES LEADER RENAL FUNCTION PANEL Early AM 04/28/2023 7:04 AM REGIONAL SALES LEADER GLUCOSE METER Timed 04/27/2023 9:24 PM REGIONAL SALES LEADER HEMOGLOBIN Early AM 04/27/2023 4:51 PM REGIONAL SALES LEADER PLATELET COUNT Early AM 04/27/2023 4:51 PM REGIONAL SALES LEADER RENAL FUNCTION PANEL Early AM 04/27/2023 4:51 PM REGIONAL SALES LEADER GLUCOSE METER Timed 04/27/2023 4:22 PM REGIONAL SALES LEADER GLUCOSE METER Timed 04/27/2023 11:12 AM REGIONAL SALES LEADER SCAN-CARDIAC STRIP 04/27/2023 8: 25 AM REGIONAL SALES LEADER GLUCOSE METER Timed 04/27/2023 7:30 AM REGIONAL SALES LEADER GLUCOSE METER Timed 04/26/2023 9:01 PM REGIONAL SALES LEADER SCAN-CARDIAC STRIP 04/26/2023 6: 15 PM REGIONAL SALES LEADER GLUCOSE METER Timed 04/26/2023 5:13 PM REGIONAL SALES LEADER SCAN-CARDIAC STRIP 04/26/2023 1: 30 PM REGIONAL SALES LEADER GLUCOSE METER Timed 04/26/2023 12:45 PM REGIONAL SALES LEADER PLATELET COUNT Early AM 04/26/2023 7:03 AM REGIONAL SALES LEADER WHITE BLOOD COUNT Early AM 04/26/2023 7:0 3 AM REGIONAL SALES LEADER RENAL FUNCTION PANEL Early AM 04/26/2023 7:03 AM REGIONAL SALES LEADER HEMOGLOBIN Timed 04/26/2023 7:03 AM REGIONAL SALES LEADER GLUCOSE METER Timed 04/26/2023 7:01 AM REGIONAL SALES LEADER GLUCOSE METER Timed 04/25/2023 8:55 PM REGIONAL SALES LEADER GLUCOSE METER Timed 04/25/2023 5:01 PM REGIONAL SALES LEADER US RENAL WITH DUPLEX COMPLETE Routine 04/25/2023 1:57 PM REGIONAL SALES LEADER GLUCOSE METER Timed 04/25/2023 12:03 PM REGIONAL SALES LEADER RENAL FUNCTION PANEL Early AM 04/25/2023 10:26 AM REGIONAL SALES LEADER HEMOGLOBIN Timed 04/25/2023 10:26 AM REGIONAL SALES LEADER SCAN-CARDIAC STRIP 04/25/2023 9: 26 AM REGIONAL SALES LEADER GLUCOSE METER Timed 04/25/2023 8:28 AM REGIONAL SALES LEADER HEMOGLOBIN Timed 04/25/2023 12:03 AM REGIONAL SALES LEADER GLUCOSE METER Timed 04/24/2023 9:38 PM REGIONAL SALES LEADER GLUCOSE METER Timed 04/24/2023 5:29 PM REGIONAL SALES LEADER HEMOGLOBIN Timed 04/24/2023 5:19 PM REGIONAL SALES LEADER HEMOGLOBIN STAT 04/24/2023 2:09 PM REGIONAL SALES LEADER PLATELET COUNT STAT 04/24/2023 2:09 PM REGIONAL SALES LEADER US BIOPSY RENAL LEFT ENZO 04/24/2023 1:43 PM REGIONAL SALES LEADER PATH TISSUE EXAM Today 04/24/2023 1:20 PM REGIONAL SALES LEADER PROTIME-INR STAT 04/24/2023 11:55 AM REGIONAL SALES LEADER GLUCOSE METER Timed 04/24/2023 11:44 AM REGIONAL SALES LEADER GLUCOSE METER Timed 04/24/2023 8:43 AM REGIONAL SALES LEADER SCAN-CARDIAC STRIP 04/24/2023 7: 55 AM REGIONAL SALES LEADER HEPATIC FUNCTION PANEL ENZO 04/24/2023 7:23 AM REGIONAL SALES LEADER PLATELET COUNT Early AM 04/24/2023 7:23 AM REGIONAL SALES LEADER WHITE BLOOD COUNT Early AM 04/24/2023 7:2 3 AM REGIONAL SALES LEADER HEMOGLOBIN Early AM 04/24/2023 7:23 AM REGIONAL SALES LEADER RENAL FUNCTION PANEL Early AM 04/24/2023 7:23 AM REGIONAL SALES LEADER GLUCOSE METER Timed 04/23/2023 8:47 PM REGIONAL SALES LEADER XR CHEST 1 VIEW PORTABLE STAT 04/23/2023 6:24 PM REGIONAL SALES LEADER PROCALCITONIN STAT 04/23/2023 6:09 PM REGIONAL SALES LEADER BLOOD CULTURE Today 04/23/2023 6:09 PM REGIONAL SALES LEADER BLOOD CULTURE Today 04/23/2023 6:06 PM REGIONAL SALES LEADER LACTATE VENOUS STAT 04/23/2023 6:06 PM REGIONAL SALES LEADER GLUCOSE METER Timed 04/23/2023 3:46 PM REGIONAL SALES LEADER PROTEIN/CREAT RATIO,URINE Today 04/23/2023 2:25 PM REGIONAL SALES LEADER SODIUM,RANDOM URINE Today 04/23/2023 2 :25 PM REGIONAL SALES LEADER UA W/ SEDIMENT EXAM REFLEXED PER CRITERIA Today 04/23/2023 2:25 PM REGIONAL SALES LEADER GLUCOSE METER Timed 04/23/2023 12:19 PM REGIONAL SALES LEADER GLUCOSE METER Timed 04/23/2023 8:29 AM REGIONAL SALES LEADER SCAN-CARDIAC STRIP 04/23/2023 7: 40 AM REGIONAL SALES LEADER CBC WITH AUTO DIFFERENTIAL ENZO 04/23/2023 7:40 AM REGIONAL SALES LEADER CBC WITH AUTO DIFFERENTIAL ENZO 04/23/2023 7:40 AM REGIONAL SALES LEADER HEMOGLOBIN Early AM 04/23/2023 7:40 AM REGIONAL SALES LEADER ALT (SGPT) Early AM 04/23/2023 7:40 AM REGIONAL SALES LEADER AST (SGOT) Early AM 04/23/2023 7:40 AM REGIONAL SALES LEADER MAGNESIUM Early AM 04/23/2023 7:40 AM REGIONAL SALES LEADER BASIC METABOLIC PANEL Early AM 04/23/2023 7:40 AM REGIONAL SALES LEADER GLUCOSE METER Timed 04/22/2023 10:07 PM REGIONAL SALES LEADER SCAN-CARDIAC STRIP 04/22/2023 8: 51 PM REGIONAL SALES LEADER BASIC METABOLIC PANEL STAT 04/22/2023 6:43 [address] [employer]IONAL SALES LEADER CT ABDOMEN PELVIS STONE PROTOCOL WO STAT 04/22/2023 11:32 AM REGIONAL SALES LEADER HEMOGLOBIN A1C ENZO 04/22/2023 10:42 AM REGIONAL SALES LEADER CK TOTAL ENZO 04/22/2023 10:42 AM REGIONAL SALES LEADER MAGNESIUM STAT 04/22/2023 10:42 AM REGIONAL SALES LEADER COMP METABOLIC PANEL STAT 04/22/2023 10:42 AM REGIONAL SALES LEADER CBC W PLT NO DIFF STAT 04/22/2023 10: 42 AM REGIONAL SALES LEADER EKG 12 LEAD STAT 04/22/2023 10:15 AM REGIONAL SALES LEADER HEPATIC FUNCTION PANEL Add On 04/21/2023 12:00 PM REGIONAL SALES LEADER Urinary symptom or sign PHOSPHORUS Add On 04/21/2023 12:00 PM REGIONAL SALES LEADER Urinary symptom or sign RED CELL MORPHOLOGY Routine 04/21/2023 1 2:00 PM REGIONAL SALES LEADER Hospital discharge follow-up Recent septic shock related to pyelonephritis Demand ischemia PLATELET ESTIMATE Routine 04/21/2023 12: 00 PM REGIONAL SALES LEADER Hospital discharge follow-up Recent septic shock related to pyelonephritis Demand ischemia MANUAL DIFFERENTIAL Routine 04/21/2023 1 2:00 PM REGIONAL SALES LEADER Hospital discharge follow-up Recent septic shock related to pyelonephritis Demand ischemia CBC WITH AUTO DIFFERENTIAL Routine 04/21/2023 12:00 PM REGIONAL SALES LEADER Hospital discharge follow-up Recent septic shock related to pyelonephritis Demand ischemia PRO-BNP Routine 04/21/2023 12:00 PM REGIONAL SALES LEADER Hospital discharge follow-up Demand ischemia Other heart failure (HC) CBC WITH AUTO DIFFERENTIAL Routine 04/21/2023 12:00 PM REGIONAL SALES LEADER Hospital discharge follow-up Recent septic shock related to pyelonephritis Demand ischemia BASIC METABOLIC PANEL Routine 04/21/2023 12:00 PM REGIONAL SALES LEADER Hospital discharge follow-up Recent septic shock related to pyelonephritis Demand ischemia URINALYSIS MICROSCOPIC Routine 04/21/2023 11:05 AM REGIONAL SALES LEADER Hospital discharge follow-up Recent septic shock related to pyelonephritis URINE CULTURE Routine 04/21/2023 11:05 AM REGIONAL SALES LEADER Hospital discharge follow-up Recent septic shock related to pyelonephritis UA W/ SEDIMENT EXAM REFLEXED PER CRITERIA Routine 04/21/2023 11:05 AM REGIONAL SALES LEADER Hospital discharge follow-up Recent septic shock related to pyelonephritis TRICHOMONAS, OSCAR, AND BACTERIAL VAGINOSIS BY POPPY Routine 04/21/2023 11:00 AM REGIONAL SALES LEADER Vulvar irritation SCAN CORRESP-EKG RESULTS 04/16/2023 9:21 AM REGIONAL SALES LEADER SCAN CORRESP-LABORATORY RESULTS 04/16/2023 9:19 AM REGIONAL SALES LEADER SCAN CORRESP-IMAGING 04/16/2023 9:19 AM REGIONAL SALES LEADER SCAN-CARDIAC STRIP 04/15/2023 2: 05 PM REGIONAL SALES LEADER GLUCOSE METER Timed 04/15/2023 12:39 PM REGIONAL SALES LEADER GLUCOSE METER Timed 04/15/2023 11:30 AM REGIONAL SALES LEADER GLUCOSE METER Timed 04/15/2023 7:46 AM REGIONAL SALES LEADER SCAN-CARDIAC STRIP 04/15/2023 7: 16 AM REGIONAL SALES LEADER SCAN-CARDIAC STRIP 04/15/2023 5: 55 AM REGIONAL SALES LEADER POTASSIUM Early AM 04/15/2023 3:32 AM REGIONAL SALES LEADER SCAN-CARDIAC STRIP 04/14/2023 11 :41 PM REGIONAL SALES LEADER GLUCOSE METER Timed 04/14/2023 8:48 PM REGIONAL SALES LEADER GLUCOSE METER Timed 04/14/2023 4:42 PM REGIONAL SALES LEADER SCAN-CARDIAC STRIP 04/14/2023 4: [address] [address] CARDIAC CORONARY ARTERIES DUAL READ Routine 04/14/2023 2:24 PM REGIONAL SALES LEADER GLUCOSE METER Timed 04/14/2023 11:41 AM REGIONAL SALES LEADER SCAN-CARDIAC STRIP 04/14/2023 10 :14 AM REGIONAL SALES LEADER GLUCOSE METER Timed 04/14/2023 7:34 AM REGIONAL SALES LEADER PRO-BNP ENZO 04/14/2023 5:16 AM REGIONAL SALES LEADER MAGNESIUM Early AM 04/14/2023 5:16 AM REGIONAL SALES LEADER CBC W PLT NO DIFF Early AM 04/14/2023 5:1 6 AM REGIONAL SALES LEADER BASIC METABOLIC PANEL Early AM 04/14/2023 5:16 AM REGIONAL SALES LEADER GLUCOSE METER Timed 04/13/2023 10:16 PM REGIONAL SALES LEADER GLUCOSE METER Timed 04/13/2023 5:[address]ES [address] HEAD BRAIN WO Routine 04/13/2023 4:11 PM REGIONAL SALES LEADER GLUCOSE METER Timed 04/13/2023 11:54 AM REGIONAL SALES LEADER POTASSIUM Timed 04/13/2023 9:34 AM REGIONAL SALES LEADER SCAN-CARDIAC STRIP 04/13/2023 8: 00 AM REGIONAL SALES LEADER GLUCOSE METER Timed 04/13/2023 7:51 AM REGIONAL SALES LEADER CREATININE ENZO 04/13/2023 4:18 AM REGIONAL SALES LEADER MAGNESIUM Early AM 04/13/2023 4:18 AM REGIONAL SALES LEADER POTASSIUM Early AM 04/13/2023 4:18 AM REGIONAL SALES LEADER SCAN-CARDIAC STRIP 04/12/2023 11 :50 PM REGIONAL SALES LEADER GLUCOSE METER Timed 04/12/2023 9:51 PM REGIONAL SALES LEADER POTASSIUM Timed 04/12/2023 8:25 PM REGIONAL SALES LEADER SCAN-CARDIAC STRIP 04/12/2023 7: 18 PM REGIONAL SALES LEADER GLUCOSE METER Timed 04/12/2023 4:31 PM REGIONAL SALES LEADER SCAN-CARDIAC STRIP 04/12/2023 3: 57 PM REGIONAL SALES LEADER POTASSIUM Timed 04/12/2023 1:17 PM REGIONAL SALES LEADER MAGNESIUM Timed 04/12/2023 1:17 PM REGIONAL SALES LEADER GLUCOSE METER Timed 04/12/2023 11:46 AM REGIONAL SALES LEADER ECHO TTE COMPLETE W CONTRAST Today 04/12/2023 10:01 AM REGIONAL SALES LEADER SCAN-CARDIAC STRIP 04/12/2023 7: 58 AM REGIONAL SALES LEADER GLUCOSE METER Timed 04/12/2023 7:48 AM REGIONAL SALES LEADER EKG 12 LEAD STAT 04/12/2023 6:12 AM REGIONAL SALES LEADER GLUCOSE METER Timed 04/12/2023 5:46 AM REGIONAL SALES LEADER PRO-BNP ENZO 04/12/2023 5:42 AM REGIONAL SALES LEADER BASIC METABOLIC PANEL Early AM 04/12/2023 5:42 AM REGIONAL SALES LEADER SCAN-CARDIAC STRIP 04/12/2023 5: 23 AM REGIONAL SALES LEADER SCAN-CARDIAC STRIP 04/12/2023 5: 13 AM REGIONAL SALES LEADER BLOOD GAS,VENOUS Today 04/12/2023 3:05 AM REGIONAL SALES LEADER TROPONIN T (HS) ONE TIME Timed 04/12/2023 3:05 AM REGIONAL SALES LEADER XR CHEST 1 VIEW PORTABLE STAT 04/12/2023 3:02 AM REGIONAL SALES LEADER EKG 12 LEAD STAT 04/12/2023 1:25 AM REGIONAL SALES LEADER TSH ENZO 04/12/2023 1:24 AM REGIONAL SALES LEADER HEMOGLOBIN A1C SCREENING ENZO 04/12/2023 1:24 AM REGIONAL SALES LEADER APTT STAT 04/12/2023 1:24 AM REGIONAL SALES LEADER FIBRINOGEN,QUANTITATI VE STAT 04/12/2023 1:24 AM REGIONAL SALES LEADER HEPATIC FUNCTION PANEL STAT 04/12/2023 1:24 AM REGIONAL SALES LEADER TROPONIN T (HS) ACUTE W/2HR REFLEX STAT 04/12/2023 1:24 AM REGIONAL SALES LEADER PROTIME-INR STAT 04/12/2023 1:24 AM REGIONAL SALES LEADER CBC W PLT NO DIFF STAT 04/12/2023 1:2 4 AM REGIONAL SALES LEADER LACTATE VENOUS STAT 04/12/2023 1:24 AM REGIONAL SALES LEADER MAGNESIUM STAT 04/12/2023 1:24 AM REGIONAL SALES LEADER BASIC METABOLIC PANEL STAT 04/12/2023 1:24 AM REGIONAL SALES LEADER from Last 3 Months Results * (ABNORMAL) BASIC METABOLIC PANEL (05/28/2023 12:33 PM CDT) Only the most recent of8 resultswithin the time period is included. SODIUM 139 136 - 145 mmol/L 05/28/2023 10:10 PM CDT [facility] POTASSIUM 4.2 3.5 - 5.1 mmol/L 05/28/2023 10:10 PM CDT [facility] CHLORIDE 103 98 - 107 mmol/L 05/28/2023 10:10 PM CDT [facility] CO2,TOTAL 24 22 - 29 mmol/L 05/28/2023 10:10 PM CDT [facility] ANION GAP 12 5 - 18 05/28/2023 10:10 PM CDT [facility] GLUCOSE 112(H) 70 - 99 mg/dL 05/28/2023 10:10 PM CDT [facility] CALCIUM 10.6(H) 8.8 - 10.2 mg/dL 05/28/2023 10:10 PM CDT [facility] BUN 17 8 - 23 mg/dL 05/28/2023 10:10 PM T [facility] CREATININE 0.99(H) 0.50 - 0.90 mg/dL 05/28/2023 10:10 PM T [facility] BUN/CREAT RATIO 17 10 - 20 10:10 PM T [facility] eGFR 65(L) >90 mL/min/1.7 3m2 05/28/2023 10:10 PM [facility] [facility] Comment:As of 2021, eG FR is calculated by the CKD-EPI creatinine equation without race adjustment. ??eGFR can be influenced by muscle mass, exercise, and diet. ??The reported eGFR is an estimation only and is only applicable if the renal function is stable. Blood BLOOD SPECIMEN / Unknown Venipuncture / Unknown 05/28/2023 12:33 PM CDT 05/28/2023 12:33 PM CDT Sharad PATEL CHEMISTRY [facility] [address] [place] [address], * (ABNORMAL) CBC WITH AUTO DIFFERENTIAL (05/21/2023 9:53 AM REGIONAL SALES LEADER) Only the most recent of3 resultswithin the time period is included. WHITE BLOOD COUNT 8.9 4.5 - 11.0 thou/cu mm 05/21/2023 10:01 AM REGIONAL SALES LEADER [facility] RED BLOOD COUNT 4.10 4.00 - 5.20 mil/cu mm 05/21/2023 10:01 AM [facility] HEMOGLOBIN 11.4(L) 12.0 - 16.0 g/dL 05/21/2023 10:01 AM [facility] HEMATOCRIT 36.1 33.0 - 51.0 % 05/21/2023 10:01 AM [facility] MCV 88 80 - 100 fL 05/21/2023 10:01 AM [facility] MCH 27.8 26.0 - 34.0 pg 05/21/2023 10:01 AM [facility] MCHC 31.6(L) 32.0 - 36.0 g/dL 05/21/2023 10:01 AM [facility] RDW 15.5 11.5 - 15.5 % 05/21/2023 10:01 AM [facility] PLATELET COUNT 235 140 - 440 thou/cu mm 05/21/2023 10:01 AM [facility] MPV 9.8 6.5 - 11.0 fL 05/21/2023 10:01 AM [facility] % NEUT 43.2 % 05/21/2023 10:01 AM [facility] % LYMPH 44.1 % 05/21/2023 10:01 AM [facility] % MONO 6.7 % 05/21/2023 10:01 AM [facility] % EOS 5.7 % 05/21/2023 10:01 AM [facility] % BASO 0.3 % 05/21/2023 10:01 AM [facility] ABSOLUTE NEUTROPHILS 3.9 1.7 - 7.0 thou/cu mm 05/21/2023 10:01 AM [facility] ABSOLUTE LYMPHOCYTES 3.9(H) 0.9 - 2.9 thou/cu mm 05/21/2023 10:01 AM [facility] ABSOLUTE MONOCYTES 0.6 <0.9 thou/cu mm 05/21/2023 10:01 AM [facility] ABSOLUTE EOSINOPHILS 0.5(H) <0.5 thou/cu mm 05/21/2023 10:01 AM [facility] ABSOLUTE BASOPHILS 0.0 <0.3 thou/cu mm 05/21/2023 10:01 AM [facility] Blood BLOOD SPECIMEN / Unknown Venipuncture / Unknown 05/21/2023 9:53 AM REGIONAL SALES LEADER 05/21/2023 9:55 AM [facility] Gertrude Perez MD HEMATOLOGY [facility] [address] [place] [address], * (ABNORMAL) COMP METABOLIC PANEL (05/21/2023 9:53 AM REGIONAL SALES LEADER) Only the most recent of2 resultswithin the time period is included. SODIUM 142 136 - 145 mmol/L 05/21/2023 5:43 PM [facility] POTASSIUM 4.3 3.5 - 5.1 mmol/L 05/21/2023 5:43 PM [facility] CHLORIDE 104 98 - 107 mmol/L 05/21/2023 5:43 PM [facility] CO2,TOTAL 25 22 - 29 mmol/L 05/21/2023 5:43 PM [facility] ANION GAP 13 5 - 18 05/21/2023 5:43 PM [facility] GLUCOSE 139(H) 70 - 99 mg/dL 05/21/2023 5:43 PM [facility] CALCIUM 10.8(H) 8.8 - 10.2 mg/dL 05/21/2023 5:43 PM [facility] BUN 14 8 - 23 mg/dL 05/21/2023 5:43 PM [facility] CREATININE 0.93(H) 0.50 - 0.90 mg/dL 05/21/2023 5:43 PM [facility] BUN/CREAT RATIO 15 10 - 20 5:43 PM [facility] eGFR 70(L) >90 mL/min/1.7 3m2 05/21/2023 5:43 PM [facility] Comment:As of 2021, eG FR is calculated by the CKD-EPI creatinine equation without race adjustment. ??eGFR can be influenced by muscle mass, exercise, and diet. ??The reported eGFR is an estimation only and is only applicable if the renal function is stable. ALBUMIN 4.9 4.0 - 4.9 g/dL 05/21/2023 5:43 PM REGIONAL SALES LEADER [facility] PROTEIN,TOTAL 8.3(H) 6.0 - 8.0 g/dL 05/21/2023 5:43 PM REGIONAL SALES LEADER [facility] BILIRUBIN,TOTAL 0.4 0.0 - 1.2 mg/dL 05/21/2023 5:43 PM [facility] ALK PHOSPHATASE 98 35 - 104 IU/L 05/21/2023 5:43 PM [facility] ALT (SGPT) 80(H) 10 - 35 IU/L 05/21/2023 5:43 PM [facility] AST (SGOT) 70(H) 10 - 35 IU/L 05/21/2023 5:43 PM [facility] Blood BLOOD SPECIMEN / Unknown Venipuncture / Unknown 05/21/2023 9:53 AM REGIONAL SALES LEADER 05/21/2023 9:55 AM [facility] Gertrude Perez MD CHEMISTRY [facility] [address] [place] [address], * URINALYSIS MICROSCOPIC (05/09/2023 12:00 PM REGIONAL SALES LEADER) Only the most recent of3 resultswithin the time period is included. RBC 0-2 0-2, None Seen /HPF 05/09/2023 12:13 PM REGIONAL SALES LEADER [facility] WBC 0-2 0-2, 3-5, None Seen /HPF 05/09/2023 12:13 PM [facility] BACTERIA Few None Seen, Rare, Few Bacteria/H PF 05/09/2023 12:13 PM REGIONAL SALES LEADER [facility] EPITHELIAL CELLS Few None Seen, Few Epi/HPF 05/09/2023 12:13 PM REGIONAL SALES LEADER [facility] Urine URINE SPECIMEN / Unknown Non-Blood / Unknown 05/09/2023 12:00 PM REGIONAL SALES LEADER 05/09/2023 12:10 PM [employer]IONAL SALES LEADER Gertrude Perez MD URINE [facility] [address] [place] [address], [place] [phone] * (ABNORMAL) UA W/ SEDIMENT EXAM REFLEXED PER CRITERIA (05/09/2023 12:00 PM REGIONAL SALES LEADER) Only the most recent of4 resultswithin the time period is included. COLOR Yellow Yellow Color 05/09/2023 12:07 PM [facility] CLARITY Clear Clear Clarity 05/09/2023 12:07 PM [facility] SPECIFIC GRAVITY,URINE 1.020 1.010, 1.015, 1.020, 1.025 05/09/2023 12:07 PM [facility] PH,URINE 6.0 6.0, 7.0, 8.0, 5.5, 6.5, 7.5, 8.5 05/09/2023 12:07 PM [facility] UROBILINOGEN, QUALITATIVE Normal Normal EU/dl 05/09/2023 12:07 PM [facility] PROTEIN, URINE 30(A) Negative mg/dL 05/09/2023 12:07 PM [facility] GLUCOSE, URINE Negative Negative mg/dL 05/09/2023 12:07 PM [facility] KETONES,URINE Negative Negative mg/dL 05/09/2023 12:07 PM [facility] BILIRUBIN,URI NE Negative Negative 05/09/2023 12:07 PM [facility] OCCULT BLOOD,URINE Trace(A) Negative 05/09/2023 12:07 PM [facility] NITRITE Negative Negative 05/09/2023 12:07 PM REGIONAL SALES LEADER [facility] LEUKOCYTE ESTERASE Negative Negative 05/09/2023 12:07 PM REGIONAL SALES LEADER [facility] Urine URINE SPECIMEN / Unknown Non-Blood / Unknown 05/09/2023 12:00 PM REGIONAL SALES LEADER 05/09/2023 12:03 PM [employer]IONAL SALES LEADER Gertrude Perez MD URINE [facility] [address] [place] [address], * CT ABDOMEN PELVIS WO (05/09/2023 11:59 AM REGIONAL SALES LEADER) Anatomical Region Laterality Modality Abdomen, Pelvis, AORTA, LIVER, SPLEEN Computed Tomography Narrative 05/09/2023 1:36 PM REGIONAL SALES LEADER Indication: Abdominal pain/vomiting. ??Recent left renal biopsy. Comparison: None. Technique: CT abdomen/pelvis with intravenous contrast. Findings: Lungs are clear. ??Imaged mediastinal structures are normal. Liver is normal. ??Cholecystectomy changes. ??Spleen is normal. ??Adrenal glands are normal. ??Pancreas is normal. ??There is perinephric stranding/fluid along the inferior pole of the left kidney. ??No large hematoma. ??No hydronephrosis. ??Right kidney is normal in appearance. No GI tract inflammatory changes. ??There is diverticulosis along the ascending colon. ??Surgical clips right adnexal region. ??No retroperitoneal/abdominal lymphadenopathy. No acute osseous abnormalities. ??Scattered minor spondylosis. Impression: 1. ??Left inferior pole perinephric stranding/fluid, compatible with history of recent biopsy. ??No large hematoma. ??No hydronephrosis. 2. ??No other acute abdominal/pelvic pathology. Gertrude Perez MD CT * (ABNORMAL) HEMOGLOBIN (05/09/2023 11:59 AM REGIONAL SALES LEADER) Only the most recent of11 resultswithin the time period is included. HEMOGLOBIN 10.8(L) 12.0 - 16.0 g/dL 05/09/2023 12:04 PM REGIONAL SALES LEADER [facility] MCV 88 80 - 100 fL 05/09/2023 12:04 PM REGIONAL SALES LEADER [facility] Blood BLOOD SPECIMEN / Unknown Venipuncture / Unknown 05/09/2023 11:59 AM REGIONAL SALES LEADER 05/09/2023 11:59 AM REGIONAL SALES LEADER Narrative [facility] - 05/09/2023 12:04 PM REGIONAL SALES LEADER Notice: This testing was ordered by an outside provider. The provider who placed this order has reviewed and approved it for completion by the lab, but is not involved in this patient's care related to the ordering of this lab. The lab will provide the testing results for Basic Metabolic Panel, Hemoglobin, Urinalysis with Microscopic, to the outside provider, ??Alex Kaplan ??at fax number [phone], for that provider to inform and arrange appropriate follow up with the patient. Gertrude Perez MD HEMATOLOGY [facility] [address] [place] [address], * (ABNORMAL) LIVER PANEL (HEPATIC FUNCTION PANEL) (05/09/2023 11:59 AM REGIONAL SALES LEADER) Only the most recent of4 resultswithin the time period is included. ALBUMIN 4.7 4.0 - 4.9 g/dL 05/09/2023 8:50 PM REGIONAL SALES LEADER [facility] PROTEIN,TOTAL 8.4(H) 6.0 - 8.0 g/dL 05/09/2023 8:50 PM REGIONAL SALES LEADER [facility] BILIRUBIN,TOTAL 0.5 0.0 - 1.2 mg/dL 05/09/2023 8:50 PM REGIONAL SALES LEADER [facility] BILIRUBIN,DIRECT <0.2 0.0 - 0.3 mg/dL 05/09/2023 8:50 PM REGIONAL SALES LEADER [facility] BILIRUBIN,INDIRE CT 05/09/2023 8:50 PM REGIONAL SALES LEADER [facility] Comment:Unable to calculate, Direct Bili <0.2 ALK PHOSPHATASE 107(H) 35 - 104 IU/L 05/09/2023 8:50 PM REGIONAL SALES LEADER [facility] ALT (SGPT) 86(H) 10 - 35 IU/L 05/09/2023 8:50 PM REGIONAL SALES LEADER [facility] AST (SGOT) 81(H) 10 - 35 IU/L 05/09/2023 8:50 PM REGIONAL SALES LEADER [facility] Blood BLOOD SPECIMEN / Unknown Venipuncture / Unknown 05/09/2023 11:59 AM REGIONAL SALES LEADER 05/09/2023 11:59 AM [employer]IONAL SALES LEADER Gertrude Perez MD CHEMISTRY Performing Organization Address [facility]/[place] Co de Phone Number [facility] [address] [place] [address], [place] * URINE CULTURE (05/01/2023 10:40 AM REGIONAL SALES LEADER) Only the most recent of2 resultswithin the time period is included. CULTURE <10,000 CFU/mL multiple organisms 05/02/2023 3:08 PM REGIONAL SALES LEADER [facility] Urine URINE SPECIMEN / Unknown Non-Blood / Unknown 05/01/2023 10:40 AM REGIONAL SALES LEADER 05/01/2023 10:46 AM REGIONAL SALES LEADER Jyoti Damico MD MICROBIOLOGY Performing Organization Address [facility] Co de Phone Number [facility] [address] [place] [address], [place] * GLUCOSE METER (04/29/2023 11:15 AM REGIONAL SALES LEADER) Only the most recent of43 resultswithin the time period is included. GLUCOSE METER 86 65 - 100 mg/dL 04/29/2023 11:16 AM REGIONAL SALES LEADER [facility] Blood BLOOD SPECIMEN / Unknown 04/29/2023 11:15 AM REGIONAL SALES LEADER 04/29/2023 11:16 AM REGIONAL SALES LEADER Sharad PATEL CHEMISTRY Performing Organization Address [facility]/ZIP Co de Phone Number [facility] SENDOUT INTERNAL [address]IP [phone] [place] [address] * SCAN-CARDIAC STRIP (04/29/2023 8:26 AM [facility]) Scanner OTHER * IRON PLUS IRON BINDING CAP (04/29/2023 7:06 AM REGIONAL SALES LEADER) IRON 55 37 - 145 ug/dL 04/29/2023 9:04 AM [facility] UIBC (UNSATURATED) 268 112 - 347 ug/dL 04/29/2023 9:04 AM [facility] IRON BINDING CAPACITY 323 250 - 400 ug/dL 04/29/2023 9:04 AM [facility] IRON,% SATURATION 17 14 - 50 % 04/29/2023 9:04 AM [facility] Blood BLOOD SPECIMEN / Unknown Venipuncture / Unknown 04/29/2023 7:06 AM REGIONAL SALES LEADER 04/29/2023 7:34 AM [facility] Sharad PATEL CHEMISTRY [facility] SENDOUT [place] [address]IP [phone] [place] [address] * (ABNORMAL) RENAL FUNCTION PANEL (04/29/2023 7:06 AM [facility]) Only the most recent of6 resultswithin the time period is included. SODIUM 141 136 - 145 mmol/L 04/29/2023 7:59 AM [facility] POTASSIUM 4.3 3.5 - 5.1 mmol/L 04/29/2023 7:59 AM [facility] CHLORIDE 105 98 - 107 mmol/L 04/29/2023 7:59 AM [facility] CO2,TOTAL 23 22 - 29 mmol/L 04/29/2023 7:59 AM [facility] ANION GAP 13 5 - 18 04/29/2023 7:59 AM [facility] GLUCOSE 95 70 - 99 mg/dL 04/29/2023 7:59 AM [facility] CALCIUM 10.1 8.8 - 10.2 mg/dL 04/29/2023 7:59 AM [facility] BUN 27(H) 8 - 23 mg/dL 04/29/2023 7:59 AM [facility] CREATININE 2.95(H) 0.50 - 0.90 mg/dL 04/29/2023 7:59 AM [facility] BUN/CREAT RATIO 9(L) 10 - 20 7:59 AM [facility] eGFR 17(L) >90 mL/min/1.7 3m2 04/29/2023 7:59 AM [facility] Comment:As of 2021, eG FR is calculated by the CKD-EPI creatinine equation without race adjustment. ??eGFR can be influenced by muscle mass, exercise, and diet. ??The reported eGFR is an estimation only and is only applicable if the renal function is stable. PHOSPHORUS 3.9 2.5 - 4.5 mg/dL 04/29/2023 7:59 AM [facility] ALBUMIN 3.7(L) 4.0 - 4.9 g/dL 04/29/2023 7:59 AM [facility] Blood BLOOD SPECIMEN / Unknown Venipuncture / Unknown 04/29/2023 7:06 AM REGIONAL SALES LEADER 04/29/2023 7:34 AM REGIONAL SALES LEADER Sebastian Gao DO CHEMISTRY [facility] SENDOUT INTERNAL [place] [id number] [place] [address] * SCAN-CARDIAC STRIP (04/28/2023 8:41 AM REGIONAL SALES LEADER) Scanner OTHER * FERRITIN (04/28/2023 7:04 AM REGIONAL SALES LEADER) FERRITIN 122.0 15.0 - 150.0 ng/mL 04/29/2023 12:06 PM REGIONAL SALES LEADER [facility] Blood BLOOD SPECIMEN / Unknown Venipuncture / Unknown 04/28/2023 7:04 AM REGIONAL SALES LEADER 04/28/2023 7:14 AM REGIONAL SALES LEADER Sharad PATEL [facility]MISTRY [facility] [address] [address], * (ABNORMAL) VITAMIN B12 (04/28/2023 7:04 AM REGIONAL SALES LEADER) VITAMIN B12 1,298(H) 232 - 1,245 pg/mL 04/29/2023 12:09 PM REGIONAL SALES LEADER [facility] Blood BLOOD SPECIMEN / Unknown Venipuncture / Unknown 04/28/2023 7:04 AM REGIONAL SALES LEADER 04/28/2023 7:14 AM REGIONAL SALES LEADER Narrative [facility] - 04/29/2023 12:09 PM REGIONAL SALES LEADER Biotin supplements may cause clinically significant interference for this test assay. ??If interference is suspected, it is strongly recommended that biotin is discontinued for at least one week prior to retesting. Sharad PATEL CHEMISTRY [facility] [address] [place] [address], * PLATELET COUNT (04/27/2023 4:51 PM REGIONAL SALES LEADER) Only the most recent of4 resultswithin the time period is included. PLATELET COUNT 326 140 - 440 thou/cu mm 04/27/2023 5:01 [address] REGIONAL SALES LEADER [facility] MPV 9.0 6.5 - 11.0 fL 04/27/2023 5:01 PM REGIONAL SALES LEADER [facility] Blood BLOOD SPECIMEN / Unknown Venipuncture / Unknown 04/27/2023 4:51 PM REGIONAL SALES LEADER 04/27/2023 4:57 PM REGIONAL SALES LEADER Edwin Beal MD HEMATOLOGY [facility] SENDOUT INTERNAL ZIP [phone] [place] [address] * SCAN-CARDIAC STRIP (04/27/2023 8:25 AM REGIONAL SALES LEADER) Scanner OTHER * SCAN-CARDIAC STRIP (04/26/2023 6:15 PM REGIONAL SALES LEADER) Scanner OTHER * SCAN-CARDIAC STRIP (04/26/2023 1:30 PM REGIONAL SALES LEADER) Scanner OTHER * WHITE BLOOD COUNT (04/26/2023 7:03 AM REGIONAL SALES LEADER) Only the most recent of2 resultswithin the time period is included. WHITE BLOOD COUNT 6.5 4.5 - 11.0 thou/cu mm 04/26/2023 8:12 AM REGIONAL SALES LEADER [facility] NRBC 0.0 % 04/26/2023 8:12 AM REGIONAL SALES LEADER [facility] ABS NRBC 0.0 thou /cu mm 04/26/2023 8:12 AM REGIONAL SALES LEADER [facility] Blood BLOOD SPECIMEN / Unknown Line/Port / Unknown 04/26/2023 7:03 AM REGIONAL SALES LEADER 04/26/2023 7:38 AM REGIONAL SALES LEADER Edwin Beal MD HEMATOLOGY Performing Organization Address City/State/[place] Co de Phone Number [facility] SENDOUT INTERNAL ZIP [phone] [place] [address] * US RENAL WITH DUPLEX COMPLETE (04/25/2023 1:57 PM REGIONAL SALES LEADER) Anatomical Region Laterality Modality Abdomen, KIDNEYS, KIDNEY L, KIDNEY R Ultrasound 04/25/2023 1:57 PM REGIONAL SALES LEADER Addenda Addendum by Jayson Ford MD on 04/29/2023 11:12 AM REGIONAL SALES LEADER ADDENDUM: INDICATION: Flank pain following recent left renal biopsy. Evaluate for perinephric hematoma or vascular injury. Impressions 04/25/2023 2:03 PM REGIONAL SALES LEADER 1. ??Normal renal ultrasound with Doppler. No perinephric hematoma. Narrative 04/25/2023 2:03 PM REGIONAL SALES LEADER For Patients: As a result of the Century Cures Act, medical imaging exams and procedure reports are released immediately into your electronic medical record. You may view this report before your referring provider. If you have questions, please contact your health care provider. EXAM: 1. RENAL ULTRASOUND 2. RENAL DUPLEX LOCATION: [facility] DATE: 04/25/2023 INDICATION: Abdominal/Flank pain, recent left renal biopsy on 04/24/2023 COMPARISON: Renal biopsy to a 24, CT abdomen/pelvis 04/22/2023 TECHNIQUE: Duplex imaging is performed utilizing cash-scale, two-dimensional images, and color-flow imaging. Doppler waveform analysis and spectral Doppler imaging is also performed. FINDINGS: Right kidney measures 9.3 x 3.7 x 5.0 cm . No hydronephrosis. No mass. Normal renal echotexture. Left kidney measures 10.4 x 4.4 x 5.9 cm. No hydronephrosis. No mass. Normal renal echotexture. No perinephric hematoma. The bladder is unremarkable. RENAL DUPLEX: Aortic PSV: 70 cm/s, multiphasic Right Renal Artery PSV: Normal, less than 200 cm/s Right Intrarenal Resistive Index: Normal, 0.7 or less Left Renal Artery PSV Normal, less than 200 cm/s Left Intrarenal Resistive Index: Normal, 0.7 or less Procedure Note Jayson Ford MD - 04/25/2023 For Patients: As a result of the Cures Act, medical imagingexams and procedure reports are released immediately into your electronicmedical record. You may view this report before your referring provider.If you have questions, please contact your health care provider. EXAM: 1. RENAL ULTRASOUND 2. RENAL DUPLEX LOCATION: [facility] DATE: 04/25/2023 INDICATION: Abdominal/Flank pain, recent left renal biopsy on 04/24/2023 COMPARISON: Renal biopsy to a 24, CT abdomen/pelvis 04/22/2023 TECHNIQUE: Duplex imaging is performed utilizing cash-scale,two-dimensional images, and color-flow imaging. Doppler waveform analysisand spectral Doppler imaging is also performed. FINDINGS: Right kidney measures 9.3 x 3.7 x 5.0 cm . No hydronephrosis. No mass.Normal renal echotexture. Left kidney measures 10.4 x 4.4 x 5.9 cm. No hydronephrosis. No mass.Normal renal echotexture. No perinephric hematoma. The bladder is unremarkable. RENAL DUPLEX: Aortic PSV: 70 cm/s, multiphasic Right Renal Artery PSV: Normal, less than 200 cm/s Right Intrarenal Resistive Index: Normal, 0.7 or less Left Renal Artery PSV Normal, less than 200 cm/s Left Intrarenal Resistive Index: Normal, 0.7 or less IMPRESSION: 1. Normal renal ultrasound with Doppler. No perinephric hematoma. Sebastian Gao DO US * SCAN-CARDIAC STRIP (04/25/2023 9:26 AM REGIONAL SALES LEADER) Scanner OTHER * US BIOPSY RENAL LEFT (04/24/2023 1:43 PM REGIONAL SALES LEADER) Anatomical Region Laterality Modality KIDNEY L Ultrasound, Othe r 04/24/2023 1:43 PM REGIONAL SALES LEADER Impressions 04/24/2023 1:46 PM REGIONAL SALES LEADER 1. ??Status post ultrasound-guided biopsy left renal parenchyma. Reference CPT Code: 53962, 20558, 43452 Narrative 04/24/2023 1:46 PM REGIONAL SALES LEADER For Patients: As a result of the Cures Act, medical imaging exams and procedure reports are released immediately into your electronic medical record. You may view this report before your referring provider. If you have questions, please contact your health care provider. EXAM: 1. PERCUTANEOUS BIOPSY LEFT RENAL PARENCHYMA 2. ULTRASOUND GUIDANCE 3. CONSCIOUS SEDATION LOCATION: [facility] DATE: 04/24/2023 INDICATION: free text)->ANTONETTE, ATN vs AIN PROCEDURE: Informed consent obtained. Site marked. Prior images reviewed. Required items made available. Patient identity confirmed verbally and with arm band. Patient reevaluated immediately before administering sedation. [place] protocol was followed. Time out performed. The site was prepped and draped in sterile fashion. 10 mL of 1% lidocaine was infused into the local soft tissues. Using standard technique and under direct ultrasound guidance, a 18 gauge biopsy needle was used to make three core biopsies. Tissue was submitted to Pathology. The patient tolerated the procedure well. No complications. SEDATION: Versed 1 mg. Fentanyl 50 mcg. The procedure was performed with administration intravenous conscious sedation with appropriate preoperative, intraoperative, and postoperative evaluation. 6 minutes of supervised face to face conscious sedation time was provided by a radiology nurse under my direct supervision. Procedure Note Brian Alcazar MD - 04/24/2023 For Patients: As a result of the s Act, medical imagingexams and procedure reports are released immediately into your electronicmedical record. You may view this report before your referring provider.If you have questions, please contact your health care provider. EXAM: 1. PERCUTANEOUS BIOPSY LEFT RENAL PARENCHYMA 2. ULTRASOUND GUIDANCE 3. CONSCIOUS SEDATION LOCATION: [facility] DATE: 04/24/2023 INDICATION: free text)->ANTONETTE, ATN vs AIN PROCEDURE: Informed consent obtained. Site marked. Prior images reviewed.Required items made available. Patient identity confirmed verbally andwith arm band. Patient reevaluated immediately before administeringsedation. [place] protocol was followed. Time out performed. The sitewas prepped and draped in sterile fashion. 10 mL of 1% lidocaine wasinfused into the local soft tissues. Using standard technique and underdirect ultrasound guidance, a 18 gauge biopsy needle was used to makethree core biopsies. Tissue was submitted to Pathology. The patient tolerated the procedure well. No complications. SEDATION: Versed 1 mg. Fentanyl 50 mcg. The procedure was performed withadministration intravenous conscious sedation with appropriatepreoperative, intraoperative, and postoperative evaluation. 6 minutes of supervised face to face conscious sedation time was providedby a radiology nurse under my direct supervision. IMPRESSION: 1. Status post ultrasound-guided biopsy left renal parenchyma. Reference CPT Code: 11907, 78051, 41962 Sebastian Gao DO US * GROSS AND MICROSCOPIC SURGICAL PANEL (04/24/2023 1:20 PM [employer]) Case Report Pathology Report ?Case: [id number] ? Authorizing Provider: ??Edwin Beal MD ?? Collected: ? 04/24/2023 1320 ? Ordering Location: ? [facility] ?Received: ?04/24/2023 1356 ? Pathologist: ? Lauro Victor MD ? Specimen: ?Left Kidney Biopsy ? 05/05/2023 9:27 AM [facility] Amendment 05/05/2023 - Report amended to include updated scanned report from [facility] 05/05/2023 9:27 AM [facility] Final Diagnosis A) KIDNEY, BIOPSY: REFERENCE LABORATORY REPORT: 1. Please see scanned updated report from [facility] 05/05/2023 9:27 AM [facility] Amendment electronically signed by Lauro Victor MD on 05/05/2023 at 9:27 AM Clinical Information Ms. Raya is a 63 y.o. who undergoes renal biopsy for evaluation of kidney disease. 05/05/2023 9:27 AM [facility] Gross Description A) Received in two vials, each labeled with the patient's name and date of , are 3 monsivais tissue cores ranging from 0.9 to 1.2 cm in length and each less than 0.1 cm in diameter. The specimen is entirely forwarded to [facility] ([address] [place] [address]) for diagnostic evaluation. JKT 04/24/2023 05/05/2023 9:27 AM [facility] Microscopic Description No sections submitted. Case sent to outside laboratory for processing. 05/05/2023 9:27 AM [facility] Additional Information Interpreted at [facility], Central Laboratory - [address] Ben [address] [place] [id number] 05/05/2023 9:27 AM REGIONAL SALES LEADER [facility]AL [facility] Other (Left Kidney Biopsy) 04/24/2023 1:20 PM REGIONAL SALES LEADER 04/24/2023 1:56 PM REGIONAL SALES LEADER Edwin Beal MD PATHOLOGY/CYTOLOG Y [facility] [address] [address], [facility] SENDOUT INTERNAL ZIP [address] [place] [address] * (ABNORMAL) PROTIME-INR (04/24/2023 11:55 AM REGIONAL SALES LEADER) Only the most recent of2 resultswithin the time period is included. INR 1.3(H) <1.3 04/24/2023 12:25 PM REGIONAL SALES LEADER [facility] PROTIME 14.0(H) 10.3 - 12.3 sec 04/24/2023 12:25 PM REGIONAL SALES LEADER [facility] Blood BLOOD SPECIMEN / Unknown Venipuncture / Unknown 04/24/2023 11:55 AM REGIONAL SALES LEADER 04/24/2023 12:04 PM REGIONAL SALES LEADER Narrative [facility] - 04/24/2023 12:25 PM REGIONAL SALES LEADER ?Therapeutic Range 2.0-3.0 for most anticoagulated patients [...] seconds if the patient is on UFH. Nathalia Robles RN HEMATOLOGY Performing Organization Address City/[facility]/ZIP Co de Phone Number [facility] SENDOUT INTERNAL ZIP [phone] [place] [address] * SCAN-CARDIAC STRIP (04/24/2023 7:55 AM REGIONAL SALES LEADER) Scanner OTHER * XR CHEST 1 VIEW PORTABLE (04/23/2023 6:24 PM REGIONAL SALES LEADER) Only the most recent of2 resultswithin the time period is included. Anatomical Region Laterality Modality HEART, THORAX, CHEST Computed Ra diography 04/23/2023 6:24 PM REGIONAL SALES LEADER Impressions 04/23/2023 6:28 PM REGIONAL SALES LEADER Negative chest. Narrative 04/23/2023 6:28 PM REGIONAL SALES LEADER For Patients: As a result of the Cures Act, medical imaging exams and procedure reports are released immediately into your electronic medical record. You may view this report before your referring provider. If you have questions, please contact your health care provider. EXAM: XR CHEST 1 VIEW PORTABLE LOCATION: [facility] DATE: 04/23/2023 INDICATION: SOB Eval Lung Infiltrate COMPARISON: None. Procedure Note Brian Alcazar MD - 04/23/2023 For Patients: As a result of the s Act, medical imagingexams and procedure reports are released immediately into your electronicmedical record. You may view this report before your referring provider.If you have questions, please contact your health care provider. EXAM: XR CHEST 1 VIEW PORTABLE LOCATION: [facility] DATE: 04/23/2023 INDICATION: SOB Eval Lung Infiltrate COMPARISON: None. IMPRESSION: Negative chest. Edwin Beal MD GENERAL IMAGING * PROCALCITONIN (04/23/2023 6:09 PM REGIONAL SALES LEADER) PROCALCITONIN 0.25 ng/ml 04/23/2023 6:49 PM REGIONAL SALES LEADER [facility] Blood BLOOD SPECIMEN / Unknown Venipuncture / Unknown 04/23/2023 6:09 PM REGIONAL SALES LEADER 04/23/2023 6:18 PM REGIONAL SALES LEADER Narrative [facility] - 04/23/2023 6:49 PM REGIONAL SALES LEADER Procalcitonin for initial assessment of Lower Respiratory Tract Infection: Results Interpretation <0.10 ng/mL Antibiotic therapy strongly discoraged. ??Indicates absent of bacterial infection. * 0.10 - 0.25 ng/mL Antibiotic therapy discouraged. ??Bacterial infection unlikely. * 0.26 - 0.50 ng/mL Antibiotic therapy encouraged. ??Bacterial infection possible. >0.50 ng/mL Antibiotic therapy strongly encouraged. ??Suggestive of presence of bacterial infection. *Antibiotic therapy should be considered regardless of PCT result if the patient is clinically unstable, is at high risk for adverse outcome, has strong evidence of bacterial pathogen, or the clinical context indicates antibiotic therapy is warranted. ??If antibiotics are withheld, reassess if symptoms persist/worsen and/or repeat PCT measurement within 6-24 hours. ? In order to assess treatment success and to support a decision to discontinue antibiotic therapy, follow up samples should be tested once every 1-2 days, based upon physician discretion taking into account patient's evolution and progress. Procalcitonin for initial assessment of severe sepsis risk: Results Interpretation <0.5 ng/ml A PCT level below 0.5 ng/ml on the first day of ICU admission is associated with a low risk for progression to severe sepsis and/or septic shock. > 2.0 ng/mL A PCT level above 2.0 ng/mL on the first day of ICU admission is associated with a high risk for progression to severe sepsis and/or septic shock. Note: Concentrations < 0.5 ng/mL do not exclude an infection, on account of localized infections (without systemic signs) which can be associated with such low concentrations, or a systemic infection in its initial stages(< 6 hours). Furthermore, increased procalcitonin can occur without infection. PCT concentrations between 0.5 and 2.0 ng/mL should be interpreted taking into account the patient's history. It is recommended to retest PCT within 6-24 hours if any concentrations < 2 ng/mL are obtained. Edwin Beal MD SEND OUTS [facility] SENDOUT INTERNAL ZIP [phone] [place] [address] * BLOOD CULTURE (04/23/2023 6:09 PM REGIONAL SALES LEADER) Only the most recent of2 resultswithin the time period is included. Pathologist [facility] CULTURE No Growth. 04/27/2023 9:37 PM REGIONAL SALES LEADER [facility] Blood BLOOD SPECIMEN / Unknown Venipuncture / Unknown 04/23/2023 6:09 PM REGIONAL SALES LEADER 04/23/2023 6:18 PM REGIONAL SALES LEADER Edwin Beal MD MICROBIOLOGY [facility] [address] [place] [address], * LACTATE VENOUS (04/23/2023 6:06 PM REGIONAL SALES LEADER) Only the most recent of2 resultswithin the time period is included. Pathologist [facility] LACTATE,VENOUS 1.5 0.5 - 2.0 mmol/L 04/23/2023 6:41 PM REGIONAL SALES LEADER [facility] Blood BLOOD SPECIMEN / Unknown Venipuncture / Unknown 04/23/2023 6:06 PM REGIONAL SALES LEADER 04/23/2023 6:18 PM REGIONAL SALES LEADER Edwin Beal MD CHEMISTRY Performing Organization Address City/[facility]/ZIP Co de Phone Number [facility] SENDOUT INTERNAL ZIP [phone] [place] [address] * (ABNORMAL) PROTEIN/CREAT RATIO,URINE (04/23/2023 2:25 PM REGIONAL SALES LEADER) Pathologist [facility] PROTEIN QUANT,RAND URINE 11 1 - 14 mg/dL 04/23/2023 3:11 PM REGIONAL SALES LEADER [facility] CREAT,RANDOM URINE 29.5 28.0 - 217.0 mg/dL 04/23/2023 3:11 PM REGIONAL SALES LEADER [facility] PROT/CREAT RATIO,UR 0.4(H) <0.2 04/23/2023 3:11 PM REGIONAL SALES LEADER [facility] Urine URINE SPECIMEN / Unknown Non-Blood / Unknown 04/23/2023 2:25 PM REGIONAL SALES LEADER 04/23/2023 2:32 PM REGIONAL SALES LEADER Sebastian Gao DO URINE Performing Organization Address [facility]/ZIP Co de Phone Number [facility] SENDOUT INTERNAL ZIP [phone] [place] [address] * SODIUM,RANDOM URINE (04/23/2023 2:25 PM REGIONAL SALES LEADER) SODIUM,RANDOM URINE 56 mmol/L 04/23/2023 7:15 PM REGIONAL SALES LEADER [facility] Comment:No Reference Range D efined. Urine URINE SPECIMEN / Unknown Non-Blood / Unknown 04/23/2023 2:25 PM REGIONAL SALES LEADER 04/23/2023 2:32 PM REGIONAL SALES LEADER Sebastian Gao DO [facility]INE [facility] [address] [place] [address], * SCAN-CARDIAC STRIP (04/23/2023 7:40 AM REGIONAL SALES LEADER) Scanner OTHER * (ABNORMAL) ALT (SGPT) (04/23/2023 7:40 AM REGIONAL SALES LEADER) ALT (SGPT) 66(H) 10 - 35 IU/L 04/23/2023 8:38 AM REGIONAL SALES LEADER [facility] Blood BLOOD SPECIMEN / Unknown Venipuncture / Unknown 04/23/2023 7:40 AM REGIONAL SALES LEADER 04/23/2023 8:09 AM REGIONAL SALES LEADER Edwin Beal MD CHEMISTRY Performing Organization Address [facility]/ZIP Co de Phone Number [facility] SENDOUT INTERNAL ZIP [phone] [place] [phone] * (ABNORMAL) AST (SGOT) (04/23/2023 7:40 AM REGIONAL SALES LEADER) AST (SGOT) 45(H) 10 - 35 IU/L 04/23/2023 8:38 AM REGIONAL SALES LEADER [facility] Blood BLOOD SPECIMEN / Unknown Venipuncture / Unknown 04/23/2023 7:40 AM REGIONAL SALES LEADER 04/23/2023 8:09 AM REGIONAL SALES LEADER Edwin Beal MD CHEMISTRY Performing Organization Address [facility]/ZIP Co de Phone Number [facility] SENDOUT INTERNAL ZIP [phone] [place] [address] * MAGNESIUM (04/23/2023 7:40 AM REGIONAL SALES LEADER) Only the most recent of6 resultswithin the time period is included. MAGNESIUM 1.9 1.6 - 2.4 mg/dL 04/23/2023 8:38 AM REGIONAL SALES LEADER [facility] Blood BLOOD SPECIMEN / Unknown Venipuncture / Unknown 04/23/2023 7:40 AM REGIONAL SALES LEADER 04/23/2023 8:09 AM REGIONAL SALES LEADER Edwin Beal MD CHEMISTRY [facility] SENDOUT INTERNAL ZIP [phone] [place] [address] * SCAN-CARDIAC STRIP (04/22/2023 8:51 PM REGIONAL SALES LEADER) Scanner OTHER * CT ABDOMEN PELVIS STONE PROTOCOL WO (04/22/2023 11:32 AM REGIONAL SALES LEADER) Anatomical Region Laterality Modality Abdomen, Pelvis, AORTA, LIVER, SPLEEN Computed Tomography 04/22/2023 11:3 2 AM REGIONAL SALES LEADER Impressions 04/22/2023 11:55 AM REGIONAL SALES LEADER 1. ??No urinary calculi and no hydronephrosis bilaterally. 2. ??No acute process in the abdomen or pelvis on noncontrast imaging. 3. ??Mildly cirrhotic configuration of the liver. 4. ??Cholecystectomy and hysterectomy. Narrative 04/22/2023 11:55 AM REGIONAL SALES LEADER For Patients: As a result of the Century Cures Act, medical imaging exams and procedure reports are released immediately into your electronic medical record. You may view this report before your referring provider. If you have questions, please contact your health care provider. EXAM: CT ABDOMEN PELVIS STONE PROTOCOL WO LOCATION: [facility] DATE: 04/22/2023 INDICATION: Left flank/CVA pain, assess for stone. Nausea and vomiting. COMPARISON: CT abdomen pelvis 10/18/2019 TECHNIQUE: CT scan of the abdomen and pelvis was performed without oral or IV contrast. Multiplanar reformats were obtained. Dose reduction techniques were used. CONTRAST: None. FINDINGS: LOWER CHEST: Normal. HEPATOBILIARY: Cholecystectomy. No bile duct dilatation. Mild nodularity to the hepatic contour suggests hepatic cirrhosis. PANCREAS: Normal. SPLEEN: Normal. ADRENAL GLANDS: Normal. KIDNEY/BLADDER: No urinary calculi and no hydronephrosis bilaterally. Smooth renal contours. BOWEL: Diverticulosis of the colon. No acute inflammatory change. No obstruction. LYMPH NODES: Normal. VASCULATURE: No abdominal aortic aneurysm. PELVIC ORGANS: Hysterectomy. No pelvic mass. Surgical clip right pelvis. MUSCULOSKELETAL: Mild degenerative change lumbar spine and both hips. Procedure Note Andi Ly MD - 04/22/2023 For Patients: As a result of the Cures Act, medical imagingexams and procedure reports are released immediately into your electronicmedical record. You may view this report before your referring provider.If you have questions, please contact your health care provider. EXAM: CT ABDOMEN PELVIS STONE PROTOCOL WO LOCATION: [facility] DATE: 04/22/2023 INDICATION: Left flank/CVA pain, assess for stone. Nausea and vomiting. COMPARISON: CT abdomen pelvis 10/18/2019 TECHNIQUE: CT scan of the abdomen and pelvis was performed without oral orIV contrast. Multiplanar reformats were obtained. Dose reductiontechniques were used. CONTRAST: None. FINDINGS: LOWER CHEST: Normal. HEPATOBILIARY: Cholecystectomy. No bile duct dilatation. Mild nodularityto the hepatic contour suggests hepatic cirrhosis. PANCREAS: Normal. SPLEEN: Normal. ADRENAL GLANDS: Normal. KIDNEY/BLADDER: No urinary calculi and no hydronephrosis bilaterally.Smooth renal contours. BOWEL: Diverticulosis of the colon. No acute inflammatory change. Noobstruction. LYMPH NODES: Normal. VASCULATURE: No abdominal aortic aneurysm. PELVIC ORGANS: Hysterectomy. No pelvic mass. Surgical clip right pelvis. MUSCULOSKELETAL: Mild degenerative change lumbar spine and both hips. IMPRESSION: 1. No urinary calculi and no hydronephrosis bilaterally. 2. No acute process in the abdomen or pelvis on noncontrast imaging. 3. Mildly cirrhotic configuration of the liver. 4. Cholecystectomy and hysterectomy. Stew Grossman MD CT * (ABNORMAL) CBC w PLT no Diff (04/22/2023 10:42 AM REGIONAL SALES LEADER) Only the most recent of3 resultswithin the time period is included. WHITE BLOOD COUNT 10.4 4.5 - 11.0 thou/cu mm 04/22/2023 11:00 AM [facility] RED BLOOD COUNT 3.80(L) 4.00 - 5.20 mil/cu mm 04/22/2023 11:00 AM [facility] HEMOGLOBIN 10.3(L) 12.0 - 16.0 g/dL 04/22/2023 11:00 AM [facility] HEMATOCRIT 32.5(L) 33.0 - 51.0 % 04/22/2023 11:00 AM [facility] MCV 86 80 - 100 fL 04/22/2023 11:00 AM [facility] MCH 27.1 26.0 - 34.0 pg 04/22/2023 11:00 AM [facility] MCHC 31.7(L) 32.0 - 36.0 g/dL 04/22/2023 11:00 AM [facility] RDW 15.9(H) 11.5 - 15.5 % 04/22/2023 11:00 AM [facility] PLATELET COUNT 348 140 - 440 thou/cu mm 04/22/2023 11:00 AM [facility] MPV 8.9 6.5 - 11.0 fL 04/22/2023 11:00 AM [facility] NRBC 0.0 % 04/22/2023 11:00 AM [facility] ABS NRBC 0.0 thou /cu mm 04/22/2023 11:00 AM [facility] Blood BLOOD SPECIMEN / Unknown Non-Lab Venipuncture / Unknown 04/22/2023 10:42 AM REGIONAL SALES LEADER 04/22/2023 10:57 AM [facility] Stew Grossman MD HEMATOLOGY [facility] SENDOUT INTERNAL ZIP [phone] [place] [address] * (ABNORMAL) Hemoglobin A1C (04/22/2023 10:42 AM [facility]) [facility] HEMOGLOBIN A1C MONITORING (POCT) 7.2(H) <=6.4 % 04/22/2023 4:08 PM [facility] Blood BLOOD SPECIMEN / Unknown Non-Lab Venipuncture / Unknown 04/22/2023 10:42 AM REGIONAL SALES LEADER 04/22/2023 10:57 AM REGIONAL SALES LEADER Narrative [facility] - 04/22/2023 4:08 PM REGIONAL SALES LEADER ? (<=6.9%) ? Indicates good control ? (7.0% to 7.9%) ? Indicates fair control ? (>=8.0%) ? Indicates poor control ?? NOTE: ??These thresholds are guidelines and ?individual targets may vary. Falsely low levels may be seen with: Recent Transfusion, Recent Significant Blood Loss, Hemolytic Diseases, or Falsely elevated levels may be seen with: Untreated Anemias, Splenectomy ? Edwin Beal MD CHEMISTRY Performing Organization Address City/[facility]/ZIP Co de Phone Number [facility] SENDOUT INTERNAL [place] [phone] [place] [address] * CK TOTAL (04/22/2023 10:42 AM REGIONAL SALES LEADER) [facility] CK,TOTAL 62 26 - 192 IU/L 04/22/2023 1:07 [address] REGIONAL SALES LEADER [facility] Blood BLOOD SPECIMEN / Unknown Non-Lab Venipuncture / Unknown 04/22/2023 10:42 AM REGIONAL SALES LEADER 04/22/2023 10:57 AM REGIONAL SALES LEADER Edwin Beal MD CHEMISTRY Performing Organization Address [facility]/ZIP Co de Phone Number [facility] SENDOUT INTERNAL ZIP [phone] [place] [phone] * EKG 12 Lead (04/22/2023 10:15 AM REGIONAL SALES LEADER) Only the most recent of3 resultswithin the time period is included. [facility] Interpretation Normal sinus rhythm Normal ECG BEYOND NOW Ventricular Rate 62 BPM BEYOND NOW Atrial Rate 62 BPM BEYOND NOW P-R Interval 152 ms BEYOND NOW QRS Duration 82 ms BEYOND NOW QT 440 ms BEYOND NOW QTc 446 ms BEYOND NOW P [place] 75 degrees BEYOND NOW R [place] 70 degrees BEYOND NOW T [place] 45 degrees BEYOND NOW 04/22/2023 10:1 5 AM REGIONAL SALES LEADER 04/23/2023 1:00 PM REGIONAL SALES LEADER Stew Grossman MD EKG ORD BEYOND NOW [place], [place] * RED CELL MORPHOLOGY (04/21/2023 12:00 PM REGIONAL SALES LEADER) RBC COMMENT RBC morphology appears normal RBC morphology appears normal, RBC morphology within normal limits for newborns. 04/21/2023 1:25 PM REGIONAL SALES LEADER [facility] Blood BLOOD SPECIMEN / Unknown Venipuncture / Unknown 04/21/2023 12:00 PM REGIONAL SALES LEADER 04/21/2023 12:00 PM REGIONAL SALES LEADER Gertrude Perez MD HEMATOLOGY Performing Organization Address City/[facility]/ZIP Co de Phone Number [facility] [address] [place] [address], [place] [phone] * PLATELET ESTIMATE (04/21/2023 12:00 PM REGIONAL SALES LEADER) Pathologist [facility] PLATELET ESTIMATE Adequate Adequate, No estimate 04/21/2023 1:25 PM REGIONAL SALES LEADER [facility] Blood BLOOD SPECIMEN / Unknown Venipuncture / Unknown 04/21/2023 12:00 PM REGIONAL SALES LEADER 04/21/2023 12:00 PM REGIONAL SALES LEADER Gertrude Perez MD HEMATOLOGY Performing Organization Address City/[facility]/ZIP Co de Phone Number [facility] [address] [place] [address], [place] [phone] * (ABNORMAL) MANUAL DIFFERENTIAL (04/21/2023 12:00 PM REGIONAL SALES LEADER) Pathologist [facility] % NEUTROPHILS 54.0 % 04/21/2023 1:25 PM REGIONAL SALES LEADER [facility] % LYMPHOCYTES 36.0 % 04/21/2023 1:25 PM REGIONAL SALES LEADER [facility] % MONOCYTES 9.0 % 04/21/2023 1:25 PM REGIONAL SALES LEADER [facility] % EOSINOPHILS 1.0 % 04/21/2023 1:25 PM REGIONAL SALES LEADER [facility] % BASOPHILS 0.0 % 04/21/2023 1:25 PM REGIONAL SALES LEADER [facility] NEUTROPHILS ABSOLUTE 6.0 1.7 - 7.0 thou/cu mm 04/21/2023 1:25 PM REGIONAL SALES LEADER [facility] LYMPHOCYTES ABSOLUTE 4.0(H) 0.9 - 2.9 thou/cu mm 04/21/2023 1:25 PM REGIONAL SALES LEADER [facility] MONOCYTES ABSOLUTE 1.0(H) <0.9 thou/cu mm 04/21/2023 1:25 PM REGIONAL SALES LEADER [facility] EOSINOPHILS ABSOLUTE 0.1 <0.5 thou/cu mm 04/21/2023 1:25 PM REGIONAL SALES LEADER [facility] BASOPHILS ABSOLUTE 0.0 <0.3 thou/cu mm 04/21/2023 1:25 PM REGIONAL SALES LEADER [facility] Blood BLOOD SPECIMEN / Unknown Venipuncture / Unknown 04/21/2023 12:00 PM REGIONAL SALES LEADER 04/21/2023 12:00 PM REGIONAL SALES LEADER Gertrude Perez MD HEMATOLOGY [facility] [address] [place] [address], * (ABNORMAL) PHOSPHORUS (04/21/2023 12:00 PM REGIONAL SALES LEADER) PHOSPHORUS 5.7(H) 2.5 - 4.5 mg/dL 04/22/2023 8:42 AM REGIONAL SALES LEADER [facility] Blood BLOOD SPECIMEN / Unknown Venipuncture / Unknown 04/21/2023 12:00 PM REGIONAL SALES LEADER 04/21/2023 12:00 PM REGIONAL SALES LEADER Gertrude Perez MD [facility]STRY [facility] [address] [place] [address], * (ABNORMAL) PRO-BNP (04/21/2023 12:00 PM REGIONAL SALES LEADER) Only the most recent of3 resultswithin the time period is included. PRO-BNP 357(H) <125 pg/mL 04/21/2023 11:51 PM REGIONAL SALES LEADER [facility] Blood BLOOD SPECIMEN / Unknown Venipuncture / Unknown 04/21/2023 12:00 PM REGIONAL SALES LEADER 04/21/2023 12:00 PM REGIONAL SALES LEADER Narrative [facility] - 04/21/2023 11:51 PM REGIONAL SALES LEADER The following cut-points have been suggested for [...] 72% for acute congestive heart failure. ? Gertrude Perez MD SEND OUTS [facility] [address] [place] [address], * (ABNORMAL) TRICHOMONAS, OSCAR, AND BACTERIAL VAGINOSIS BY POPPY (04/21/2023 11:00 AM REGIONAL SALES LEADER) OSCAR SPECIES Negative Negative 1:18 AM REGIONAL SALES LEADER [facility] OSCAR GLABRATA Positive(A) Negative 04/22/2023 1:18 AM REGIONAL SALES LEADER [facility] TRICHOMONAS VVA Negative Negative 1:18 AM REGIONAL SALES LEADER [facility] BACTERIAL VAGINOSIS Negative Negative 04/22/2023 1:18 AM REGIONAL SALES LEADER [facility] Other VAGINAL SWAB / Unknown Non-Blood / Unknown 04/21/2023 11:00 AM REGIONAL SALES LEADER 04/21/2023 12:03 PM REGIONAL SALES LEADER Gertrude Perez MD MICROBIOLO GY [facility] [address] [place] [address], * SCAN CORRESP-EKG RESULTS (04/16/2023 9:21 AM REGIONAL SALES LEADER) Narrative 04/16/2023 9:21 AM REGIONAL SALES LEADER Ordered by an unspecified provider. Other Clinical Staff OTHER * SCAN CORRESP-LABORATORY RESULTS (04/16/2023 9:19 AM REGIONAL SALES LEADER) Narrative 04/16/2023 9:19 AM REGIONAL SALES LEADER Ordered by an unspecified provider. Other Clinical Staff OTHER * SCAN CORRESP-IMAGING (04/16/2023 9:19 AM REGIONAL SALES LEADER) Anatomical Region Laterality Modality Other Narrative 04/16/2023 9:19 AM REGIONAL SALES LEADER Ordered by an unspecified provider. Other Clinical Staff OTHER * SCAN-CARDIAC STRIP (04/15/2023 2:05 PM REGIONAL SALES LEADER) Scanner OTHER * SCAN-CARDIAC STRIP (04/15/2023 7:16 AM REGIONAL SALES LEADER) Scanner OTHER * SCAN-CARDIAC STRIP (04/15/2023 5:55 AM REGIONAL SALES LEADER) Scanner OTHER * POTASSIUM (04/15/2023 3:32 AM REGIONAL SALES LEADER) Only the most recent of5 resultswithin the time period is included. POTASSIUM 4.1 3.5 - 5.1 mmol/L 04/15/2023 4:16 AM REGIONAL SALES LEADER [facility] Blood BLOOD SPECIMEN / Unknown Venipuncture / Unknown 04/15/2023 3:32 AM REGIONAL SALES LEADER 04/15/2023 3:55 AM REGIONAL SALES LEADER Rafal Pichardo MD CHEMISTRY [facility] SENDOUT INTERNAL ZIP [phone] [place] [address] * SCAN-CARDIAC STRIP (04/14/2023 11:41 PM REGIONAL SALES LEADER) Scanner OTHER * SCAN-CARDIAC STRIP (04/14/2023 4:00 PM REGIONAL SALES LEADER) Scanner OTHER * CT Coronary Angiogram Scan (04/14/2023 2:24 PM REGIONAL SALES LEADER) Anatomical Region Laterality Modality HEART Computed Tomogra phy, Other Impressions 04/15/2023 8:42 AM REGIONAL SALES LEADER ?? No significant incidental extracardiac findings. Please refer to apprentice painter brush's dictation for the cardiac CT report. ?? Narrative 04/15/2023 8:42 AM REGIONAL SALES LEADER Results are automatically released to your [employer] account once available, in compliance with federal regulations. ??This means that you may see your results before your provider has had a chance to review them. ??Please allow 2-3 business days for your provider to comment on the results. CT CORONARY ANGIOGRAM, CALCIUM SCORE, 04/14/2023 INDICATION: Elevated troponin. CONCLUSIONS: This is a dual read study - please review [facility] over-read below for incidental non cardiac findings. Total calcium score is zero. Normal coronary anatomy in a right dominant system. TECHNIQUE: Calcium score was performed. ECG-gated CT angiogram of the heart with intravenous contrast Omnipaque 350, 84 mL, flow rate 6.5, was performed on a Siemens SOMATOM Force CT scanner. The imaging protocol was individualized to minimize radiation exposure. The following ECG-gated acquisition protocol was used: Diastolic protocol. Best phase 75%. Scan parameters were as follows: Tube potential: 90 KV. Tube Current: 2045 mAs. Total DLP: 204 mGy*cm; CTDI: 14.86. Images were reconstructed at a slice thickness of 0.6 mm with 0.3 mm overlap. Image post processing was performed on a [employer] Workstation. The patient received the following medications: 0.8 mg sublingual nitroglycerin. Average heart rate during the study was 56 BPM. No arrhythmias. There were no complications. TECHNICAL QUALITY: Image quality is fair, respiratory motion artifact present. ?? FINDINGS: CALCIUM SCORE: The total Agatston coronary artery calcium score is zero, indicating the absence of calcified plaques in the coronary tree. A calcium score of zero implies a very low risk of cardiac events in the next 10 years. CORONARY ARTERIES: Dominance: Right dominant. Normal origin of the coronary arteries. Left main artery: The left main coronary artery is patent without evidence of plaque or stenosis. Left anterior descending artery: The left anterior descending artery and its major diagonal branches are patent without evidence of plaque or stenosis. Left circumflex artery: The left circumflex artery and its major obtuse marginal and/or posterolateral branches are patent without evidence of plaque or stenosis. Right coronary artery: The right coronary artery and its major branches are patent without evidence of plaque or stenosis. CARDIAC: Normal left ventricular size. The right ventricle appears normal. The aortic valve is trileaflet. The mitral valve appears grossly normal. There is no left atrial appendage thrombus. There is no obvious atrial septal defect. The pericardium is without effusion. VESSELS: The visualized portions of the ascending and descending thoracic aorta are normal in caliber. Pulmonary artery is of normal caliber. There is ??normal pulmonary venous anatomy (three right-sided pulmonary veins, two left-sided pulmonary veins are present). NON-CARDIAC: Please see radiology report below for incidental non-cardiac findings. Donis Blanchard MD [facility] BJM/car For Patients: As a result of the 21st Century Cures Act, medical imaging exams and procedure reports are released immediately into your electronic medical record. You may view this report before your referring provider. If you have questions, please contact your health care provider. EXAM: OVERREAD: DETAILED [facility] EXTRACARDIAC OVERREAD OF CARDIAC CT LOCATION: [facility] DATE: 04/14/2023 INDICATION: CAD screening, high CAD risk, not treadmill candidate positive troponins in setting of sepsis, now recovered, diabetes, deaf. TECHNIQUE: Dose reduction techniques were used. COMPARISON: 10/18/2019 FINDINGS: ?? LIMITED CHEST: Trace bilateral effusions with bibasilar atelectasis. LIMITED MEDIASTINUM: Heart is normal in size. LIMITED UPPER ABDOMEN: Negative. Leonardo Sidhu MD CT * SCAN-CARDIAC STRIP (04/14/2023 10:14 AM REGIONAL SALES LEADER) Scanner OTHER * CT HEAD BRAIN WO (04/13/2023 4:11 PM REGIONAL SALES LEADER) Anatomical Region Laterality Modality HEAD, BRAIN Computed Tomogra phy 04/13/2023 4:11 PM REGIONAL SALES LEADER Impressions 04/13/2023 4:15 PM REGIONAL SALES LEADER 1. ??No CT evidence for acute intracranial process. 2. ??Brain atrophy and presumed chronic microvascular ischemic changes as above. Narrative 04/13/2023 4:15 PM REGIONAL SALES LEADER For Patients: As a result of the Cures Act, medical imaging exams and procedure reports are released immediately into your electronic medical record. You may view this report before your referring provider. If you have questions, please contact your health care provider. EXAM: CT HEAD BRAIN WO LOCATION: [facility] DATE: 04/13/2023 INDICATION: Head [...] provider. EXAM: CT HEAD BRAIN WO LOCATION: [facility] DATE: 04/13/2023 INDICATION: Head [...] changes asabove. Richardson Segovia MD CT * SCAN-CARDIAC STRIP (04/13/2023 8:00 AM REGIONAL SALES LEADER) Scanner OTHER * (ABNORMAL) CREATININE (04/13/2023 4:18 AM REGIONAL SALES LEADER) eGFR 60(L) >90 mL/min/1.7 3m2 04/13/2023 8:23 AM REGIONAL SALES LEADER [facility] Comment:As of 2021, eG FR is calculated by the CKD-EPI creatinine equation without race adjustment. ??eGFR can be influenced by muscle mass, exercise, and diet. ??The reported eGFR is an estimation only and is only applicable if the renal function is stable. CREATININE 1.06(H) 0.50 - 0.90 mg/dL 04/13/2023 8:23 AM REGIONAL SALES LEADER [facility] Blood BLOOD SPECIMEN / Unknown Non-Lab Venipuncture / Unknown 04/13/2023 4:18 AM REGIONAL SALES LEADER 04/13/2023 4:29 AM REGIONAL SALES LEADER Richardson Segovia MD CHEMISTRY [facility] SENDOUT [place]NAL [address]IP [phone] [place] [address] * SCAN-CARDIAC STRIP (04/12/2023 11:50 PM REGIONAL SALES LEADER) Scanner OTHER * SCAN-CARDIAC STRIP (04/12/2023 7:18 PM REGIONAL SALES LEADER) Scanner OTHER * SCAN-CARDIAC STRIP (04/12/2023 3:57 PM REGIONAL SALES LEADER) Scanner OTHER * ECHO TTE COMPLETE W CONTRAST (04/12/2023 10:01 AM REGIONAL SALES LEADER) EJECTION FRACTION 60-65% PROSOLV Anatomical Region Laterality Modality Ultrasound 04/12/2023 8:43 AM REGIONAL SALES LEADER Narrative 04/12/2023 1:51 [place] [address] Main: [email or web address] ? Transthoracic Echo Report WOO RAYA Oliva ID: [id number] Age: 63 : 1960 Ordering Provider: STEW BRUNO Exam Date: 04/12/2023 08:43 Gender: F Rack Worker: AKIN Height: 62 in BSA: 1.55 m?? BP: 111 / 72 Weight: 123 lbs BMI: 22.5 kg/m?? Location: Inpatient (Portable) Rhythm: Irregular Procedure Components: 2D imaging with contrast, Color Doppler, Spectral Doppler Indications: Acute myocardial infarction, Acute VT unspecified Technical Quality: Fair Contrast: Definity Constrast Dose (ml): .3 [facility]#: [id number] Final Conclusion 1. 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 BP: 111 / 72 Weight: 123 lbs BMI: 22.5 kg/m?? Location: Inpatient (Portable) Rhythm: Irregular Procedure Components: 2D imaging with contrast, Color Doppler, SpectralDoppler Indications: Acute myocardial infarction, Acute VT unspecified Technical Quality: Fair Contrast: Definity Constrast Dose (ml): .3 [facility]#: [id number] Final Conclusion 1. Normal left ventricular systolic [...] Aortic Root ZScore: -1.00 Gary Rain MD [facility] Accredited Site (Electronically Signed) Final Date: 12 April 2023 13:51 ICD-10 Codes: 410.90 Stew Bruno MD ECHO ORD * SCAN-CARDIAC STRIP (04/12/2023 7:58 AM REGIONAL SALES LEADER) Scanner OTHER * SCAN-CARDIAC STRIP (04/12/2023 5:23 AM REGIONAL SALES LEADER) Scanner OTHER * SCAN-CARDIAC STRIP (04/12/2023 5:13 AM REGIONAL SALES LEADER) Scanner OTHER * (ABNORMAL) TROPONIN T (HS) ONE TIME (04/12/2023 3:05 AM REGIONAL SALES LEADER) TROPONIN T HS 40(H) 6-10 ng/L ng/L 04/12/2023 3:36 AM [facility] Blood BLOOD SPECIMEN / Unknown Non-Lab Venipuncture / Unknown 04/12/2023 3:05 AM REGIONAL SALES LEADER 04/12/2023 3:15 AM REGIONAL SALES LEADER Stew Bruno MD CHEMISTRY [facility] SENDOUT INTERNAL [address] [address] [address] [place] [address] * (ABNORMAL) BLOOD GAS,VENOUS (04/12/2023 3:05 AM REGIONAL SALES LEADER) PH, VENOUS 7.35 7.32 - 7.43 04/12/2023 3:18 AM [facility] PCO2, VENOUS 38(L) 41 - 51 mmHg 04/12/2023 3:18 AM [facility] PO2, VENOUS 32(L) 35 - 40 mmHg 04/12/2023 3:18 AM [facility] HCO3,VENOUS 21(L) 22 - 29 mmol/L 04/12/2023 3:18 AM [facility] BASE EXCESS, VENOUS, POCT -4.2(L) -2.0 - 3.0 04/12/2023 3:18 AM [facility] O2 SATURATION, VENOUS 56(L) 70 - 75 % 04/12/2023 3:18 AM [facility] INSPIRED O2 55 04/12/2023 3:18 AM [facility] Comment:Unit of Measure: Lit ers (L) if <=20; Percent (%) if >20 PATIENT TEMPERATURE 36.8 Degrees C 04/12/2023 3:18 AM [facility] Blood VENOUS BLOOD SPECIMEN / Unknown Non-Lab Venipuncture / Unknown 04/12/2023 3:05 AM REGIONAL SALES LEADER 04/12/2023 3:15 AM REGIONAL SALES LEADER Stew Bruno MD CHEMISTRY [facility] SENDOUT INTERNAL ZIP [phone] [place] [address] * (ABNORMAL) TROPONIN T (HS) ACUTE W/2HR REFLEX (04/12/2023 1:24 AM REGIONAL SALES LEADER) TROPONIN T HS 30(H) 6-10 ng/L ng/L 04/12/2023 1:58 AM REGIONAL SALES LEADER [facility] Blood BLOOD SPECIMEN / Unknown Venipuncture / Unknown 04/12/2023 1:24 AM REGIONAL SALES LEADER 04/12/2023 1:34 AM REGIONAL SALES LEADER Narrative [facility] - 04/12/2023 1:58 AM REGIONAL SALES LEADER hs-cTnT (Elecsys Troponin T Gen 5) concentration [...] department patient population. Stew Bruno MD CHEMISTRY Performing Organization Address [facility] Co de Phone Number [facility] SENDOUT INTERNAL ZIP [phone] [place] [address] * (ABNORMAL) HEMOGLOBIN A1C SCREENING (04/12/2023 1:24 AM REGIONAL SALES LEADER) HEMOGLOBIN A1C SCREENING 7.1(H) <=6.4 % 04/12/2023 8:23 AM REGIONAL SALES LEADER [facility] Blood BLOOD SPECIMEN / Unknown Venipuncture / Unknown 04/12/2023 1:24 AM REGIONAL SALES LEADER 04/12/2023 1:34 AM REGIONAL SALES LEADER Narrative [facility] - 04/12/2023 8:23 AM REGIONAL SALES LEADER ? (<5.7%) ?Normal ? (5.7% to 6.4%) ? Indicates prediabetes ? (>=6.5%) ? Confirms diabetes Falsely low levels may be seen with: Recent Transfusion, Recent Significant Blood Loss, Hemolytic Diseases, or Falsely elevated levels may be seen with: Untreated Anemias, Splenectomy Jean Abrams MD CHEMISTRY Performing Organization Address [facility] Co de Phone Number [facility] SENDOUT INTERNAL ZIP [phone] [place] [address] * TSH (04/12/2023 1:24 AM REGIONAL SALES LEADER) TSH 3.10 0.27 - 4.20 uIU/mL 04/12/2023 2:17 AM REGIONAL SALES LEADER [facility] Blood BLOOD SPECIMEN / Unknown Venipuncture / Unknown 04/12/2023 1:24 AM REGIONAL SALES LEADER 04/12/2023 1:34 AM REGIONAL SALES LEADER Narrative [facility] - 04/12/2023 2:17 AM REGIONAL SALES LEADER In Adults, TSH values between 5.00 and 10.00 uIU/ml do not necessarily indicate the presence of Hypothyroidism. Correlation with clinical findings such as presence of goiter and/or Thyroperoxidase (TPO) Antibody may be helpful. For more information please refer to MYKE 2004; 291: 228-238. Jean Abrams MD CHEMISTRY Performing Organization Address [facility] Co de Phone Number [facility] SENDOUT INTERNAL ZIP [address] [place] [phone] * (ABNORMAL) APTT (04/12/2023 1:24 AM REGIONAL SALES LEADER) APTT 45(H) 29 - 36 sec 04/12/2023 1:50 AM REGIONAL SALES LEADER [facility] Blood BLOOD SPECIMEN / Unknown Venipuncture / Unknown 04/12/2023 1:24 AM REGIONAL SALES LEADER 04/12/2023 1:34 AM REGIONAL SALES LEADER Narrative [facility] - 04/12/2023 1:50 AM REGIONAL SALES LEADER Therapeutic Range: 57-100 seconds Stew Bruno MD HEMATOLOGY Performing Organization Address [facility] Co de Phone Number [facility] SENDOUT INTERNAL ZIP [phone] [place] [phone] * (ABNORMAL) Fibrinogen, Quant (04/12/2023 1:24 AM REGIONAL SALES LEADER) FIBRINOGEN,SHAUNA NTITATIVE 547(H) 193 - 401 mg/dL 04/12/2023 1:50 AM REGIONAL SALES LEADER [facility] Blood BLOOD SPECIMEN / Unknown Venipuncture / Unknown 04/12/2023 1:24 AM REGIONAL SALES LEADER 04/12/2023 1:34 AM REGIONAL SALES LEADER Stew Bruno MD HEMATOLOGY Performing Organization Address [facility] Co de Phone Number [facility] SENDOUT INTERNAL ZIP [phone] [place] [address] from Last 3 Months Advance Directives * Full Code (Latest Code Status on File) Date Activated Date Inactivated Comments 04/22/2023 4:01 PM 04/29/2023 6:12 PM Question Answer Comments Code Status Discussion: Reviewed Preferences * Full Code Date Activated Date Inactivated Comments 04/12/2023 1:45 AM 04/15/2023 5:39 PM Question Answer Comments Code Status Discussion: Reviewed Preferences * Full Code Date Activated Date Inactivated Comments 05/12/2010 3:45 PM 05/14/2010 6:33 PM Care Teams Reservations Manager Relationship Specialty Start Date End Date Gertrude Perez MD [address] [place] [place] [address] PCP - General Family Practice 04/21/23
--- NOTE | 2023-06-27 08:15 | US_ITS ---
Patient: WOO ECHOLS Facility:?[facility] Patient ID:?[id number] Site Patient ID:?[id number]. Site :?1960 Study:?US-Abdomen RUQ-06/27/2023 8:55:02 AM Ordering Physician:SHALONDA LOERA Final Report: INDICATION: Chronic hepatitis-C COMPARISON: CT 04/11/2023, ultrasound 11/26/2022 TECHNIQUE: Real time cash scale imaging and color Doppler analysis was performed of the right upper quadrant. FINDINGS: The liver echotexture is diffusely increased. The liver measures 15.2 cm. There is a normal appearance of the hepatic IVC and proximal abdominal aorta. There is no evidence of ascites. The gallbladder is absent. The common bile duct is of normal size and measures 6 mm in diameter at the level of the nikolai hepatis. The pancreas is heterogeneous. There is no evidence of a stone or hydronephrosis within the right kidney. The right kidney measures 8.4 cm in length. Main portal vein measures 9 millimeters. IMPRESSION: Chronic liver disease. No ascites or intrahepatic mass. Dictated by Leighton Gill MD @ 06/27/2023 12:10:17 PM Signed by:?Leighton Gill MD @06/27/2023 12:10:17 PM (Electronic Signature)
[2023-06-27 09:31] LABS: Albumin* 4.8 g/dL (3.3-5.0)
[2023-06-27 09:34] LABS: Bilirubin Direct* 0.1 mg/dL (0.0-0.5); Bilirubin Total* 0.5 mg/dL (0.1-1.5); Creatinine* 0.8 mg/dL (0.5-1.5); Estimated Glomerular Filt Rate 83 ml/min
[2023-06-27 09:35] LABS: Alanine Aminotransferase* 126 U/L (4-35); Alkaline Phosphatase* 98 U/L (40-150); Aspartate Amino Transferase* 90 U/L (12-35)
[2023-06-28 16:33] LABS: Alpha Fetoprotein Tumor Marker 4 ng/mL (0-9)
== END 2023-06-27 07:53 | disposition home or self-care (01) ==
PROVIDERS: PCP Student in an Organized Health Care Education/Training Program; Visit Provider Internal Medicine Gastroenterology
DX: B18.2 Chronic viral hepatitis C (principal); K76.9 Liver disease, unspecified; K75.81 Nonalcoholic steatohepatitis (NASH)
CPT/HCPCS: 36415; 76705; 80076; 82105; 82565; 87517

== ENCOUNTER 2023-08-28 09:24 | Outpatient (CLI) | payer MEDICARE, MEDICAID, SELFPAY ==
--- NOTE | 2023-08-28 10:15 | CRLHL7_ITS ---
For Patients: As a result of the Century Cures Act, medical imaging exams and procedure reports are released immediately into your electronic medical record. You may view this report before your referring provider. If you have questions, please contact your health care provider. BILATERAL SCREENING MAMMOGRAM WITH COMPUTER-AIDED DETECTION AND TOMOSYNTHESIS TECHNIQUE: CC and MLO views were obtained. These mammographic images have been obtained using full-field digital technique. These mammographic images were interpreted with the benefit of computer-aided detection. Breast Tomosynthesis was used in this interpretation. COMPARISON FILM: 06/03/22, 06/01/21, 05/11/20. FINDINGS: The breasts are almost entirely fatty. IMPRESSION: There is no radiographic evidence for malignancy. ASSESSMENT: BI-RADS Category 1: Negative RECOMMENDATION: Routine screening mammogram in 1 year. A lay language report of this examination will be provided to the patient. Leighton Gill M.D. Diagnostic Radiologist [email or web address] SP/Dictated by: Leighton Gill MD @ 09/01/2023 11:11:00 AM (Electronically Signed)
== END 2023-08-28 09:25 | disposition home or self-care (01) ==
LOC: MAMMO 09:26
PROVIDERS: PCP Student in an Organized Health Care Education/Training Program; Visit Provider Family Medicine
DX: Z12.31 Encounter for screening mammogram for malignant neoplasm of breast (principal)
CPT/HCPCS: 77063; 77067

== ENCOUNTER 2023-11-10 11:00 | Outpatient (RCR) | payer MEDICARE, MEDICAID, SELFPAY | END 2023-11-14 15:48 | disposition home or self-care (01) | PROVIDERS: PCP Student in an Organized Health Care Education/Training Program; Visit Provider Student in an Organized Health Care Education/Training Program | DX: M54.9 Dorsalgia, unspecified (principal); Z51.89 Encounter for other specified aftercare | CPT/HCPCS: 97110; 97161 ==